=== PATIENT | female | born 1935 | race Caucasian/White ===

== ENCOUNTER 2017-01-21 11:05 | Emergency (ER) | payer OTHER ==
[2017-01-21 11:05] VITALS: BMI 31.0
--- NOTE | 2017-01-21 12:03 | C.PDOC ---
History Of Present Illness A 81 year old female presents to the emergency room with complaints of sore throat, feeling weak, and pain all over the body for the last few months. Patient doesn't take anything for pain. Patient denies chest pain, shortness of breath, fever, or any other complaints. Time Seen by Provider: 01/21/17 11:55 Chief Complaint (Nursing): Dizziness/Lightheaded History Per: Patient History/Exam Limitations: no limitations Onset/Duration Of Symptoms: Other (Few months) Current Symptoms Are (Timing): Still Present Fall Associated With With Symptoms: No Severity: Mild Recent travel outside of the [place]: No Past Medical History Reviewed: Historical Data, Nursing Documentation, Vital Signs Vital Signs: Last Vital Signs Temp 98.6 F 01/21/17 12:05 Pulse 78 01/21/17 15:51 Resp 19 01/21/17 15:51 BP 166/73 H 01/21/17 15:51 Pulse Ox 97 01/21/17 15:51 - Medical History PMH: Anemia, Diabetes, HTN, Hypercholesterolemia, Hyperlipidemia Family History: States: Unknown Family Hx - Social History Hx Tobacco Use: No Hx Alcohol Use: No Hx Substance Use: No Review Of Systems Constitutional: Positive for: Weakness. Negative for: Fever, Chills ENT: Positive for: Throat Pain (Sore throat) Gastrointestinal: Negative for: Nausea, Vomiting, Diarrhea Musculoskeletal: Positive for: Other (Generalized body pain) Physical Exam - Physical Exam Appears: Non-toxic Skin: Normal Color, Warm, Dry, No Rash Head: Atraumatic, Normacephalic Eye(s): bilateral: Normal Inspection Oral Mucosa: Moist Throat: Normal, No Erythema, No Exudate, No Drooling, No Mass Cardiovascular: Rhythm Regular, No Murmur Respiratory: Normal Breath Sounds, No Rales, No Rhonchi, No Wheezing Gastrointestinal/Abdominal: Soft, No Tenderness, No Guarding, No Rebound Extremity: Normal ROM, No Tenderness Neurological/Psych: Oriented x3, Normal Speech, Normal Cognition ED Course And Treatment - Laboratory Results Result Diagrams: 01/21/17 12:11 01/21/17 12:11 ECG: Interpreted By Me, Viewed By Me ECG Rhythm: Sinus Rhythm Rate From EC O2 Sat by Pulse Oximetry: 99 - Radiology CXR: Interpreted by Me CXR Interpretation: Yes: No Acute Disease Medical Decision Making Medical Decision Making: Plan: -- EKG -- CXR -- Labs -- Tylenol Pt stable in the ED labs mild anemia, UA (+) Plan PO abx pcp f/u Disposition - Disposition Disposition: HOME/ ROUTINE Disposition Time: 16:09 Condition: GOOD Prescriptions: Nitrofurantoin Macrocrystals [Macrobid] 1 cap PO BID #14 cap Instructions: Urinary Tract Infection in Women (ED) Print Language: VIETNAMESE - Clinical Impression Clinical Impression: UTI (urinary tract infection), Weakness - Scribe Statement The provider has reviewed the documentation as recorded by the Scribe Ajay Melgar All medical record entries made by the Ronnellibjoao were at my direction and personally dictated by me. I have reviewed the chart and agree that the record accurately reflects my personal performance of the history, physical exam, medical decision making, and the department course for this patient. I have also personally directed, reviewed, and agree with the discharge instructions and disposition.
[2017-01-21 12:33] LABS: BASO % 0.4 % (0.0-2.0); EOS # 0.1 K/uL (0.0-0.7); EOS % 1.6 % (0.0-4.0); HEMATOCRIT 29.9 % (34.0-47.0); LYMPH # 1.1 K/uL (1.0-4.3); MEAN CELL VOLUME 75.2 fL (81.0-99.0); MEAN CORPUSCULAR HEMOGLOBIN 23.9 pg (27.0-31.0); MEAN CORPUSCULAR HGB CONC 31.8 g/dL (33.0-37.0); MEAN PLATELET VOLUME 8.1 fL (7.2-11.7); MONO # 0.9 K/uL (0.0-0.8); MONO % 14.8 % (0.0-10.0); RED CELL DISTRIBUTION WIDTH 18.3 % (11.5-14.5); WHITE BLOOD COUNT 6.1 K/uL (4.8-10.8)
[2017-01-21 12:52] LABS: RBC URINE 4 /hpf (0-3); URINE BACTERIA RARE (<OCC); URINE BILIRUBIN NEGATIVE (NEGATIVE); URINE BLOOD NEGATIVE (NEGATIVE); URINE COLOR Amber (YELLOW); URINE GLUCOSE (UA) 1+ mg/dL (Normal); URINE KETONE NEGATIVE (NEGATIVE); URINE LEUKOCYTE ESTERASE 2+ Leu/uL (Negative); URINE PROTEIN 3+ mg/dL (NEGATIVE); URINE UROBILINOGEN NORMAL mg/dL (0.2-1.0); WBC URINE 63 /hpf (0-5)
[2017-01-21 12:53] LABS: CHLORIDE 102 mmol/L (98-107); SODIUM 137 mmol/L (132-148)
[2017-01-21 12:54] LABS: POTASSIUM 3.9 mmol/L (3.6-5.2)
[2017-01-21 12:56] LABS: ALB/GLOB RATIO 1.1 (1.0-2.1); ALKALINE PHOSPHATASE 118 U/L (38-126); AST/SGOT 29 U/L (14-36); BILIRUBIN,TOTAL 0.7 mg/dL (0.2-1.3); BLOOD UREA NITROGEN 18 mg/dL (7-17); CARBON DIOXIDE 23 mmol/L (22-30); GFR AFRICAN-AMERICAN 52; GLUCOSE,RANDOM 154 mg/dL (65-105); TOTAL PROTEIN 7.8 g/dL (6.3-8.3)
[2017-01-21 12:57] LABS: ALT/SGPT 17 U/L (9-52); CALCIUM 8.2 mg/dl (8.6-10.4)
--- NOTE | 2017-01-21 13:09 | RAD ---
PROCEDURE: CHEST RADIOGRAPH, 1 VIEW HISTORY: chest pain COMPARISON: None available. FINDINGS: LUNGS: Patchy opacity lateral right lung base, nonspecific. Possible atelectasis. PLEURA: No pneumothorax or pleural fluid seen. CARDIOVASCULAR: Normal. OSSEOUS STRUCTURES: No significant abnormalities. VISUALIZED UPPER ABDOMEN: Normal. OTHER FINDINGS: None. IMPRESSION: Patchy opacity lateral right lung base, nonspecific. Otherwise unremarkable examination.
[2017-01-21 14:25] VITALS: TEMP 98.6
[2017-01-21 15:51] VITALS: BP 166/73; PULSE 78; RESP 19
[2017-01-21 16:12] VITALS: O2SAT 99
--- NOTE | 2017-01-24 11:04 | CARD ---
APPROVED REPORT EKG Measurement Heart [id number] <Conclusion> Normal sinus rhythm Left axis deviation Nonspecific ST and T wave abnormality Abnormal ECG
== END 2017-01-21 16:45 | disposition home or self-care (01) ==
LOC: C.ER 11:05
DX: N39.0 Urinary tract infection, site not specified (principal); R53.1 Weakness

== ENCOUNTER 2017-07-17 12:20 | Inpatient (IN) | payer MEDICAID, OTHER ==
[2017-07-17 12:22] VITALS: BMI 31.0
[2017-07-17 13:47] LABS: RBC URINE 3 /hpf (0-3); URINE BACTERIA RARE (<OCC); URINE BILIRUBIN NEGATIVE (NEGATIVE); URINE BLOOD NEGATIVE (NEGATIVE); URINE COLOR Yellow (YELLOW); URINE GLUCOSE (UA) 1+ mg/dL (Normal); URINE HYALINE CAST 0-2 /lpf (0-2); URINE KETONE NEGATIVE (NEGATIVE); URINE LEUKOCYTE ESTERASE 2+ Leu/uL (Negative); URINE PROTEIN 3+ mg/dL (NEGATIVE); URINE UROBILINOGEN NORMAL mg/dL (0.2-1.0); WBC URINE 37 /hpf (0-5)
[2017-07-17 13:58] LABS: BASO % 0.6 % (0.0-2.0); EOS # 0.1 K/uL (0.0-0.7); EOS % 2.3 % (0.0-4.0); HEMATOCRIT 26.3 % (34.0-47.0); LYMPH # 1.9 K/uL (1.0-4.3); MEAN CELL VOLUME 73.9 fL (81.0-99.0); MEAN CORPUSCULAR HEMOGLOBIN 24.5 pg (27.0-31.0); MEAN CORPUSCULAR HGB CONC 33.2 g/dL (33.0-37.0); MEAN PLATELET VOLUME 8.2 fL (7.2-11.7); MONO # 0.7 K/uL (0.0-0.8); MONO % 11.8 % (0.0-10.0); RED CELL DISTRIBUTION WIDTH 16.3 % (11.5-14.5); WHITE BLOOD COUNT 5.8 K/uL (4.8-10.8)
--- NOTE | 2017-07-17 14:03 | RAD ---
PROCEDURE: CHEST RADIOGRAPH, 1 VIEW HISTORY: Shortness of breath COMPARISON: 01/21/2017. FINDINGS: LUNGS: There are low lung volumes. There is moderate pulmonary venous congestion. There is bibasilar atelectasis. PLEURA: No pneumothorax or pleural fluid seen. CARDIOVASCULAR: The heart is normal in size. There is prominent central vasculature. Asymmetric prominence of the right hilum could be related to prominent vasculature however hilar mass/adenopathy is also a differential consideration. OSSEOUS STRUCTURES: No significant abnormalities. VISUALIZED UPPER ABDOMEN: Normal. OTHER FINDINGS: None. IMPRESSION: Moderate pulmonary venous congestion and bibasilar atelectasis. No focal consolidation.
[2017-07-17 14:04] LABS: CHLORIDE 107 mmol/L (98-107)
[2017-07-17 14:05] LABS: SODIUM 137 mmol/L (132-148)
[2017-07-17 14:06] LABS: POTASSIUM 4.3 mmol/L (3.6-5.2)
[2017-07-17 14:08] LABS: ALB/GLOB RATIO 1.2 (1.0-2.1); ALKALINE PHOSPHATASE 106 U/L (38-126); AST/SGOT 20 U/L (14-36); BILIRUBIN,TOTAL 0.5 mg/dL (0.2-1.3); BLOOD UREA NITROGEN 16 mg/dL (7-17); CARBON DIOXIDE 20 mmol/L (22-30); GFR AFRICAN-AMERICAN > 60; TOTAL PROTEIN 6.9 g/dL (6.3-8.3)
[2017-07-17 14:09] LABS: ALT/SGPT 28 U/L (9-52); CALCIUM 7.9 mg/dl (8.6-10.4); GLUCOSE,RANDOM 142 mg/dL (65-105)
--- NOTE | 2017-07-17 14:29 | C.PDOC ---
History Of Present Illness 81 year old female presents to the ED for evaluation of dyspnea on exertion, shortness of breath, and chest pressure. Patient states she has been noncompliant with her medicine since March 2017, when she was last seen in this ED. Patient notes she has poor vision in the morning and notes her lower extremities have been swollen and tender. Patient denies fever, chills, nausea, vomiting, extremity numbness/weakness at this time. Time Seen by Provider: 07/17/17 13:08 Chief Complaint (Nursing): Chest Pain History Per: Patient History/Exam Limitations: no limitations Onset/Duration Of Symptoms: Days Current Symptoms Are (Timing): Still Present Quality: Tightness Associated Symptoms: denies: Nausea Additional History Per: Patient Past Medical History Reviewed: Historical Data, Nursing Documentation, Vital Signs Vital Signs: Last Vital Signs Temp 98.2 F 07/17/17 14:14 Pulse 77 07/17/17 14:53 Resp 16 07/17/17 14:53 BP 192/79 H 07/17/17 14:53 Pulse Ox 97 07/17/17 14:53 - Medical History PMH: Anemia, Diabetes, HTN, Hypercholesterolemia, Hyperlipidemia Surgical History: No Surg Hx Family History: States: Unknown Family Hx - Social History Hx Tobacco Use: No Hx Alcohol Use: No Hx Substance Use: No - Immunization History Hx Tetanus Toxoid Vaccination: No Hx Influenza Vaccination: No Hx Pneumococcal Vaccination: No Review Of Systems Constitutional: Negative for: Fever, Chills Eyes: Positive for: Other (poor vision ) Cardiovascular: Positive for: Other (chest pressure ) Respiratory: Positive for: Shortness of Breath, Other (dyspnea on exertion ) Gastrointestinal: Negative for: Nausea, Vomiting Musculoskeletal: Positive for: Other (lower extremity pain and swelling ) Neurological: Negative for: Weakness, Numbness Physical Exam - Physical Exam Appears: Non-toxic, No Acute Distress Skin: Normal Color, Warm, Dry Head: Atraumatic, Normacephalic Eye(s): bilateral: Other (dense cataracts. unable to visualize retina ) Oral Mucosa: Moist Neck: Other (mild JVD) Chest: Symmetrical, No Deformity, No Tenderness Cardiovascular: Rhythm Regular, Other (loud P2 with holosystolic murmur) Respiratory: Rales (mild ), No Rhonchi, No Wheezing Gastrointestinal/Abdominal: Soft, No Tenderness, No Guarding, No Rebound, Other (obese) Extremity: Normal ROM, Capillary Refill (less than 2 seconds ), Other (1/4 edema to bilateral lower extremities ) Neurological/Psych: Oriented x3, Normal Speech, Normal Cognition ED Course And Treatment - Laboratory Results Result Diagrams: 07/17/17 13:43 07/17/17 13:43 Lab Interpretation: Abnormal (+ anemia, + elev glu, elev bnp 1850, trop neg.) ECG: Interpreted By Me ECG Rhythm: Sinus Rhythm ECG Interpretation: Normal Rate From EC O2 Sat by Pulse Oximetry: 95 (on RA) Pulse Ox Interpretation: Normal - Radiology CXR: Interpreted by Me CXR Interpretation: Yes: Heart Size, Other (+ mild CHF) Progress Note: labetolol 200 mg PO x 2, then lasix 20 IV. supplemental O2 Reevaluation Time: 14:28 Reassessment Condition: Improved - Physician Consult Information Outcome Of Conversation: 1430: d/w Dr. Gardner, Hospitalist covering [facility] pt's, ok to tele obs. Medical Decision Making Medical Decision Making: chronic anemia, mild CHF uncontrolled HTN Off all meds, non-compliant (ran out) Disposition Doctor Will See Patient In The: Hospital Counseled Patient/Family Regarding: Studies Performed, Diagnosis - Disposition Disposition: HOSPITALIZED Disposition Time: 14:29 Condition: GOOD Forms: [facility] (Malay) - Clinical Impression Clinical Impression: Chest discomfort, Dyspnea on exertion - Scribe Statement The provider has reviewed the documentation as recorded by the Scribe (Tammie Butler) Provider Attestation: All medical record entries made by the Scribe were at my direction and personally dictated by me. I have reviewed the chart and agree that the record accurately reflects my personal performance of the history, physical exam, medical decision making, and the department course for this patient. I have also personally directed, reviewed, and agree with the discharge instructions and disposition.
--- NOTE | 2017-07-17 15:49 | CP.PCM.HP ---
<Jaron Gilmore - Last Filed: 07/17/17 16:18> History of Present Illness - History of Present Illness History of Present Illness: Medicine H/P CC: SOB x 3-4 months HPI: Patient is a 81 Female who has been complaining of SOB for the past 3-4 months. She states that she can only walk 6-7 step before becoming SOB. Exertion and laying flat makes it worse. She complains of orthopnea and has to use 2 pillows to sleep. If she lays flat she becomes extremely SOB. Rest makes it better. She is complaining of chest pain that is reproducible on exam. She is complaining of a ESTEVES, leg pain bilaterally and some belly pain. She has very poor vision that hs been worked up on previous visits. She was quite hypertensive in the ED and was given labetalol, lasix and hydralzine which temporarily controlled her pressure. She denies any fever, nausea, vomiting, diarrhea. ROS: Per HPI PMH: HTN, DM PSH: None FH: unremarkable SH: Denies tobacco use, alcohol use or drug use Meds: Zestril, metformin All: NKA Present on Admission - Present on Admission Any Indicators Present on Admission: No Review of Systems - Review of Systems All systems: reviewed and no additional remarkable complaints except (per hpi) Past Patient History - Infectious Disease Hx of Infectious Diseases: None - Past Social History Smoking Status: Never Smoked - CARDIAC Hx Hypercholesterolemia: Yes Hx Hypertension: Yes - ENDOCRINE/METABOLIC Hx Endocrine Disorders: Yes Hx Diabetes Mellitus Type 2: Yes - HEMATOLOGICAL/ONCOLOGICAL Hx Anemia: Yes - PSYCHIATRIC Hx Substance Use: No - SURGICAL HISTORY Hx Surgeries: No - ANESTHESIA Hx Anesthesia: No Meds Allergies/Adverse Reactions: Allergies Allergy/AdvReac Type Severity Reaction Status Date / Time No Known Allergies Allergy Verified 07/17/17 12:52 Physical Exam - Constitutional Appears: Non-toxic - Head Exam Head Exam: ATRAUMATIC, NORMAL INSPECTION, NORMOCEPHALIC - Eye Exam Eye Exam: EOMI, Normal appearance, PERRL. absent: Conjunctival injection, Nystagmus, Periorbital swelling, Periorbital tenderness, Scleral icterus Pupil Exam: Irregular, NORMAL ACCOMODATION, PERRL. absent: Fixed, Miosis, Mydriatic, Unequal - ENT Exam ENT Exam: Mucous Membranes Moist, Normal Exam, Normal External Ear Exam, Normal Oropharynx, TM's Normal Bilaterally. absent: Mucous Membranes Dry - Neck Exam Neck exam: Positive for: Normal Inspection - Respiratory Exam Respiratory Exam: Chest Wall Tenderness, Rales, NORMAL BREATHING PATTERN. absent: Accessory Muscle Use, Decreased Breath Sounds, Clear to Auscultation Bilateral, Prolonged Expiratory Phase, Rhonchi, Wheezes, Respiratory Distress, Stridor - Cardiovascular Exam Cardiovascular Exam: REGULAR RHYTHM, JVD, RRR, +S1, +S2. absent: Bradycardia, Tachycardia, Clicks, Diastolic murmur, Gallop, Irregular Rhythm, Rubs, +S4, Systolic Murmur - GI/Abdominal Exam GI & Abdominal Exam: Normal Bowel Sounds, Soft. absent: Bruit, Diminished Bowel Sounds, Distended, Firm, Guarding, Hernia, Hyperactive Bowel Sounds, Hypoactive Bowel Sounds, Mass, Organomegaly, Pulsatile Mass, Rebound, Rigid, Tenderness - Extremities Exam Extremities exam: Positive for: calf tenderness, full ROM, normal capillary refill, pedal edema (non pitting), tenderness (bilateraly, more on the R than L) . Negative for: joint swelling, normal inspection, pedal pulses present - Neurological Exam Neurological exam: Alert, CN II-XII Intact, Oriented x3 - Psychiatric Exam Psychiatric exam: Normal Affect, Normal Mood - Skin Skin Exam: Dry, Intact, Normal Color, Warm Results - Vital Signs Recent Vital Signs: Last Vital Signs Temp 98.2 F 07/17/17 14:14 Pulse 75 07/17/17 15:25 Resp 16 07/17/17 15:25 BP 171/71 H 07/17/17 15:25 Pulse Ox 99 07/17/17 15:25 - Labs Result Diagrams: 07/17/17 13:43 07/17/17 13:43 Labs: Laboratory Results - last 24 hr 07/17/17 07/17/17 07/17/17 13:24 13:43 13:43 WBC 5.8 RBC 3.57 L Hgb 8.7 L Hct 26.3 L MCV 73.9 L MCH 24.5 L MCHC 33.2 RDW 16.3 H Plt Count 232 MPV 8.2 Neut % (Auto) 52.3 Lymph % (Auto) 33.0 [place] % (Auto) 11.8 H Eos % (Auto) 2.3 Baso % (Auto) 0.6 Neut # 3.0 Lymph # 1.9 [place] # 0.7 Eos # 0.1 Baso # 0.0 Sodium 137 Potassium 4.3 Chloride 107 Carbon Dioxide 20 L Anion Gap 14 BUN 16 Creatinine 1.0 Est GFR ( Amer) > 60 Est GFR (Non-Af Amer) 53 POC Glucose (mg/dL) Random Glucose 142 H Calcium 7.9 L Total Bilirubin 0.5 AST 20 ALT 28 Alkaline Phosphatase 106 Troponin I < 0.0120 NT-Pro-B Natriuret Pep 1850 H Total Protein 6.9 Albumin 3.8 Globulin 3.1 Albumin/Globulin Ratio 1.2 Urine Color Yellow Urine Clarity Clear Urine pH 6.0 Ur Specific [place] 1.018 Urine Protein 3+ H Urine Glucose (UA) 1+ Urine Ketones Negative Urine Blood Negative Urine Nitrate Negative Urine Bilirubin Negative Urine Urobilinogen Normal Ur Leukocyte Esterase 2+ H Urine WBC (Auto) 37 H Urine RBC (Auto) 3 Ur Squamous Epith Cells 5 Urine Bacteria Rare Hyaline Casts 0-2 07/17/17 13:47 WBC RBC Hgb Hct MCV MCH MCHC RDW Plt Count MPV Neut % (Auto) Lymph % (Auto) [place] % (Auto) Eos % (Auto) Baso % (Auto) Neut # Lymph # [place] # Eos # Baso # Sodium Potassium Chloride Carbon Dioxide Anion Gap BUN Creatinine Est GFR ( Amer) Est GFR (Non-Af Amer) POC Glucose (mg/dL) 174 H Random Glucose Calcium Total Bilirubin AST ALT Alkaline Phosphatase Troponin I NT-Pro-B Natriuret Pep Total Protein Albumin Globulin Albumin/Globulin Ratio Urine Color Urine Clarity Urine pH Ur Specific [place] Urine Protein Urine Glucose (UA) Urine Ketones Urine Blood Urine Nitrate Urine Bilirubin Urine Urobilinogen Ur Leukocyte Esterase Urine WBC (Auto) Urine RBC (Auto) Ur Squamous Epith Cells Urine Bacteria Hyaline Casts Assessment & Plan (1) Dyspnea on exertion Assessment and Plan: BNP 1850 - Consider CHF Cards ([facility]) Echo CXR - Moderate pulm venous congestion EUGENIA x3 * 1 - negative * 2 * 3 Lipid panel * TG * Chol * HDL * LDL Meds: * Lasix 20 PO BID * Metoprolol Tartrate 25 PO BID * Crestor 10 PO HS * Aldactone 25 PO BID * Lisinopril 40 PO QD Status: Acute Priority: High (2) Leg pain Assessment and Plan: F/U Venous doppler Status: Acute Priority: Medium (3) Hypertension Assessment and Plan: Meds: * Lisinopril 40mg PO QD * Lasix 20 PO BID * Metoprolol Tartrate 25 PO BID Status: Acute Priority: High (4) Diabetes Assessment and Plan: F/U A1C ISS High Accuchecks Status: Chronic Priority: Medium (5) UTI (urinary tract infection) Assessment and Plan: First UA contaminated F/U Repeat UA Status: Acute (6) Prophylactic measure Assessment and Plan: Heparin Colace Ambulate Zofran Status: Acute Priority: Low <Claudio Gardner H - Last Filed: 07/18/17 09:20> Results - Vital Signs Recent Vital Signs: Last Vital Signs Temp 98.3 F 07/18/17 08:11 Pulse 86 07/18/17 08:11 Resp 20 07/18/17 08:11 BP 183/78 H 07/18/17 08:11 Pulse Ox 97 07/18/17 08:11 - Labs Result Diagrams: 07/18/17 06:12 07/18/17 06:12 Labs: Laboratory Results - last 24 hr 07/17/17 07/17/17 07/17/17 13:24 13:43 13:43 WBC 5.8 RBC 3.57 L Hgb 8.7 L Hct 26.3 L MCV 73.9 L MCH 24.5 L MCHC 33.2 RDW 16.3 H Plt Count 232 MPV 8.2 Neut % (Auto) 52.3 Lymph % (Auto) 33.0 [place] % (Auto) 11.8 H Eos % (Auto) 2.3 Baso % (Auto) 0.6 Neut # 3.0 Lymph # 1.9 [place] # 0.7 Eos # 0.1 Baso # 0.0 Sodium 137 Potassium 4.3 Chloride 107 Carbon Dioxide 20 L Anion Gap 14 BUN 16 Creatinine 1.0 Est GFR ( Amer) > 60 Est GFR (Non-Af Amer) 53 POC Glucose (mg/dL) Random Glucose 142 H Hemoglobin A1c Calcium 7.9 L Total Bilirubin 0.5 AST 20 ALT 28 Alkaline Phosphatase 106 Total Creatine Kinase CK-MB (Mass) Troponin I < 0.0120 Troponin I, Quant NT-Pro-B Natriuret Pep 1850 H Total Protein 6.9 Albumin 3.8 Globulin 3.1 Albumin/Globulin Ratio 1.2 Triglycerides Cholesterol LDL Cholesterol Direct HDL Cholesterol TSH 3rd Generation Urine Color Yellow Urine Clarity Clear Urine pH 6.0 Ur Specific [place] 1.018 Urine Protein 3+ H Urine Glucose (UA) 1+ Urine Ketones Negative Urine Blood Negative Urine Nitrate Negative Urine Bilirubin Negative Urine Urobilinogen Normal Ur Leukocyte Esterase 2+ H Urine WBC (Auto) 37 H Urine RBC (Auto) 3 Ur Squamous Epith Cells 5 Urine Bacteria Rare Hyaline Casts 0-2 07/17/17 07/17/17 07/17/17 13:43 13:47 16:27 WBC RBC Hgb Hct MCV MCH MCHC RDW Plt Count MPV Neut % (Auto) Lymph % (Auto) [place] % (Auto) Eos % (Auto) Baso % (Auto) Neut # Lymph # [place] # Eos # Baso # Sodium Potassium Chloride Carbon Dioxide Anion Gap BUN Creatinine Est GFR ( Amer) Est GFR (Non-Af Amer) POC Glucose (mg/dL) 174 H 131 H Random Glucose Hemoglobin A1c 7.4 H Calcium Total Bilirubin AST ALT Alkaline Phosphatase Total Creatine Kinase CK-MB (Mass) Troponin I Troponin I, Quant NT-Pro-B Natriuret Pep Total Protein Albumin Globulin Albumin/Globulin Ratio Triglycerides Cholesterol LDL Cholesterol Direct HDL Cholesterol TSH 3rd Generation Urine Color Urine Clarity Urine pH Ur Specific [place] Urine Protein Urine Glucose (UA) Urine Ketones Urine Blood Urine Nitrate Urine Bilirubin Urine Urobilinogen Ur Leukocyte Esterase Urine WBC (Auto) Urine RBC (Auto) Ur Squamous Epith Cells Urine Bacteria Hyaline Casts 07/17/17 07/17/17 07/18/17 19:36 21:59 02:00 WBC RBC Hgb Hct MCV MCH MCHC RDW Plt Count MPV Neut % (Auto) Lymph % (Auto) [place] % (Auto) Eos % (Auto) Baso % (Auto) Neut # Lymph # [place] # Eos # Baso # Sodium Potassium Chloride Carbon Dioxide Anion Gap BUN Creatinine Est GFR ( Amer) Est GFR (Non-Af Amer) POC Glucose (mg/dL) 253 H Random Glucose Hemoglobin A1c Calcium Total Bilirubin AST ALT Alkaline Phosphatase Total Creatine Kinase 57 53 CK-MB (Mass) 0.85 0.53 Troponin I Troponin I, Quant < 0.0120 0.0400 NT-Pro-B Natriuret Pep Total Protein Albumin Globulin Albumin/Globulin Ratio Triglycerides Cholesterol LDL Cholesterol Direct HDL Cholesterol TSH 3rd Generation Urine Color Urine Clarity Urine pH Ur Specific [place] Urine Protein Urine Glucose (UA) Urine Ketones Urine Blood Urine Nitrate Urine Bilirubin Urine Urobilinogen Ur Leukocyte Esterase Urine WBC (Auto) Urine RBC (Auto) Ur Squamous Epith Cells Urine Bacteria Hyaline Casts 07/18/17 07/18/17 07/18/17 06:12 06:12 06:52 WBC 5.9 RBC 3.10 L Hgb 7.3 L Hct 22.9 L MCV 73.9 L MCH 23.4 L MCHC 31.7 L RDW 16.8 H Plt Count 167 MPV 8.3 Neut % (Auto) 53.6 Lymph % (Auto) 31.4 [place] % (Auto) 12.9 H Eos % (Auto) 1.6 Baso % (Auto) 0.5 Neut # 3.2 Lymph # 1.9 [place] # 0.8 Eos # 0.1 Baso # 0.0 Sodium 138 Potassium 4.4 Chloride 107 Carbon Dioxide 22 Anion Gap 13 BUN 22 H Creatinine 1.5 H Est GFR ( Amer) 41 Est GFR (Non-Af Amer) 33 POC Glucose (mg/dL) 129 H Random Glucose 124 H Hemoglobin A1c Calcium 7.5 L Total Bilirubin 0.2 AST 19 ALT 24 Alkaline Phosphatase 80 Total Creatine Kinase CK-MB (Mass) Troponin I Troponin I, Quant NT-Pro-B Natriuret Pep Total Protein 6.6 Albumin 3.1 L Globulin 3.5 Albumin/Globulin Ratio 0.9 L Triglycerides 127 D Cholesterol 157 LDL Cholesterol Direct 97 HDL Cholesterol 48 TSH 3rd Generation 1.34 Urine Color Urine Clarity Urine pH Ur Specific [place] Urine Protein Urine Glucose (UA) Urine Ketones Urine Blood Urine Nitrate Urine Bilirubin Urine Urobilinogen Ur Leukocyte Esterase Urine WBC (Auto) Urine RBC (Auto) Ur Squamous Epith Cells Urine Bacteria Hyaline Casts Attending/Attestation - Attestation I have personally seen and examined this patient.: Yes I have fully participated in the care of the patient.: Yes I have reviewed all pertinent clinical information: Yes Notes (Text): Medical attending: Patient was seen and examined by me. Agree with the above note by the resident The patient was not in any acute distress when we saw her however she did communicate to us that she still felt short of breath - particularly when laying flat on her back at night. She reports using multiple pillows. In the ER she had remarkably high BP and was given lasix IV and labetalol PO. There is a high BNP as well as CXRAY findings suggestiving CHF. We will need an echo, additional cardiac enzymes as well as to follow I and Os, weights.
[2017-07-17] MEDS: (Novolin R) Insulin Human Regular 100 units/ml vial SC SCH ×2 (16:54→22:32)
[2017-07-17] MEDS ORDERED: Metoprolol 1 mg/ml Inj IVP SCH (18:00)
[2017-07-18 06:21] LABS: BASO % 0.5 % (0.0-2.0); EOS # 0.1 K/uL (0.0-0.7); EOS % 1.6 % (0.0-4.0); HEMATOCRIT 22.9 % (34.0-47.0); LYMPH # 1.9 K/uL (1.0-4.3); LYMPH % 31.4 % (20.0-40.0); MEAN CELL VOLUME 73.9 fL (81.0-99.0); MEAN CORPUSCULAR HEMOGLOBIN 23.4 pg (27.0-31.0); MEAN CORPUSCULAR HGB CONC 31.7 g/dL (33.0-37.0); MEAN PLATELET VOLUME 8.3 fL (7.2-11.7); MONO # 0.8 K/uL (0.0-0.8); MONO % 12.9 % (0.0-10.0); RED CELL DISTRIBUTION WIDTH 16.8 % (11.5-14.5); WHITE BLOOD COUNT 5.9 K/uL (4.8-10.8)
[2017-07-18 06:46] LABS: ALB/GLOB RATIO 0.9 (1.0-2.1); BILIRUBIN,TOTAL 0.2 mg/dL (0.2-1.3); CALCIUM 7.5 mg/dl (8.6-10.4); POTASSIUM 4.4 mmol/L (3.6-5.2); TOTAL PROTEIN 6.6 g/dL (6.3-8.3)
[2017-07-18 07:07] LABS: THYROID STIMULATING HORMONE 1.34 mIU/L (0.46-4.68)
[2017-07-18] MEDS: (Novolin R) Insulin Human Regular 100 units/ml vial SC SCH ×4 (08:15→22:33)
[2017-07-18 13:08] LABS: RBC URINE < 1 /hpf (0-3); URINE BILIRUBIN NEGATIVE (NEGATIVE); URINE BLOOD NEGATIVE (NEGATIVE); URINE COLOR Yellow (YELLOW); URINE GLUCOSE (UA) 1+ mg/dL (Normal); URINE KETONE TRACE mg/dL (NEGATIVE); URINE LEUKOCYTE ESTERASE TRACE Leu/uL (Negative); URINE PROTEIN 3+ mg/dL (NEGATIVE); URINE UROBILINOGEN NORMAL mg/dL (0.2-1.0); WBC URINE 6 /hpf (0-5)
--- NOTE | 2017-07-18 17:09 | CP.PCM.PN ---
<Milo Matthews - Last Filed: 07/18/17 17:07> Subjective - Date & Time of Evaluation Date of Evaluation: 07/18/17 Time of Evaluation: 17:07 - Subjective Subjective: Patient has been seen and examined. Denies fever, abdominal pain, n/v/d constipation, or urinary symptoms. She states her chest pain and SOB have improved. Objective - Vital Signs/Intake and Output Vital Signs (last 24 hours): Temp Pulse Resp BP Pulse Ox 98.3 F 76 20 166/77 H 97 07/18/17 08:11 07/18/17 14:56 07/18/17 08:11 07/18/17 14:56 07/18/17 08:11 Intake and Output: 07/18/17 07/18/17 06:59 18:59 Intake Total 240 Balance 240 - Medications Medications: Current Medications Acetaminophen (Tylenol 325mg Tab) 650 mg PO Q6 PRN PRN Reason: Pain, moderate (4-7) Docusate Sodium (Colace) 100 mg PO BID [facility] Last Admin: 07/18/17 09:24 Dose: 100 mg Ferrous Sulfate (Feosol) 325 mg PO TID [facility] Last Admin: 07/18/17 14:56 Dose: 325 mg Furosemide (Lasix) 40 mg IVP BID [facility] Last Admin: 07/18/17 11:58 Dose: Not Given Heparin Sodium (Porcine) (Heparin) 5,000 units SC Q12 [facility] Last Admin: 07/18/17 10:54 Dose: 5,000 units Hydralazine HCl (Apresoline) 25 mg PO QID [facility] Last Admin: 07/18/17 14:56 Dose: 25 mg Ibuprofen (Motrin Tab) 400 mg PO Q6 PRN PRN Reason: Fever >100.4 F Insulin Human Regular (Novolin R) 0 unit SC ACHS [facility] PRN Reason: Protocol Last Admin: 07/18/17 12:42 Dose: 4 unit Lisinopril (Zestril) 40 mg PO DAILY [facility] Last Admin: 07/18/17 09:24 Dose: 40 mg Metoprolol Tartrate (Lopressor) 25 mg PO BID [facility] Last Admin: 07/18/17 09:24 Dose: 25 mg Ondansetron HCl (Zofran Inj) 4 mg IVP Q6 PRN PRN Reason: Nausea/Vomiting Pneumococcal Polyvalent Vaccine (Pneumovax 23 Vaccine) 0.5 ml IM .ONCE ONE Stop: 07/20/17 10:01 Rosuvastatin Calcium (Crestor) 10 mg PO HS [facility] Last Admin: 07/17/17 22:31 Dose: 10 mg Spironolactone (Aldactone) 25 mg PO BID [facility] Last Admin: 07/18/17 09:24 Dose: 25 mg - Labs Labs: 07/18/17 06:12 07/18/17 06:12 - Constitutional Appears: No Acute Distress - Head Exam Head Exam: ATRAUMATIC, NORMAL INSPECTION, NORMOCEPHALIC - Eye Exam Eye Exam: Normal appearance - ENT Exam ENT Exam: Mucous Membranes Moist - Respiratory Exam Respiratory Exam: Clear to Ausculation Bilateral, NORMAL BREATHING PATTERN - Cardiovascular Exam Cardiovascular Exam: JVD, RRR, +S1, +S2 - GI/Abdominal Exam GI & Abdominal Exam: Soft, Normal Bowel Sounds. absent: Tenderness, Organomegaly - Extremities Exam Extremities Exam: Pedal Edema (non-pitting), Tenderness - Neurological Exam Neurological Exam: Alert, Oriented x3 Assessment and Plan - Assessment and Plan (Free Text) Assessment: 81 year old female with PMHx of HTN and DM admitted for evaluation and treatment and SOB. Plan: Dyspnea on exertion Likely 2/2 to new onset CHF Cardio Consult - recs appreciated Echo - Pending Read CXR - Moderate pulm venous congestion EUGENIA NEGATIVE x3 Lipid panel -WNL Meds: * Lasix 40 IV BID * Metoprolol Tartrate 25 PO BID * Crestor 10 PO HS * Aldactone 25 PO BID * Lisinopril 40 PO QD Microcytic Anemia Ferous Sulfate 325 BID Leg pain F/U Venous doppler - Pending Read Hypertension Meds: * Lisinopril 40mg PO QD * Lasix 20 PO BID * Metoprolol Tartrate 25 PO BID Diabetes HgBA1c = 7.4 ISS High Accuchecks UTI (urinary tract infection) First UA contaminated Repeat UA shows trace Leuk Es. Urine Culture Prophylactic measure Heparin Colace Ambulate Zofran Patient Discussed with Attending Milo Matthews PGY-1 <Ventura Mittal - Last Filed: 08/09/17 15:36> Objective - Vital Signs/Intake and Output Vital Signs (last 24 hours): Temp Pulse Resp BP Pulse Ox 99.2 F 85 20 134/52 L 96 08/06/17 09:31 08/06/17 09:31 08/06/17 09:31 08/06/17 09:33 08/06/17 09:31 - Labs Labs: 08/06/17 06:11 08/06/17 06:11 PT 11.6 SECONDS (9.7-12.2) 07/20/17 18:03 INR 1.0 07/20/17 18:03 APTT 40 SECONDS (21-34) H D 07/21/17 01:27 Attending/Attestation - Attestation I have personally seen and examined this patient.: Yes I have fully participated in the care of the patient.: Yes I have reviewed all pertinent clinical information, including history, physical exam and plan: Yes Notes (Text): Dyspnea on exertion Likely 2/2 to new onset CHF Microcytic Anemia Ferous Sulfate 325 BID Leg pain F/U Venous doppler - Pending Read Hypertension
--- NOTE | 2017-07-18 21:04 | CARD ---
APPROVED REPORT EXAM: Two-dimensional and M-mode echocardiogram with Doppler and color Doppler. Other Information Quality : GoodRhythm : INDICATION Dyspnea Congestive Heart Failure RISK FACTORS Hypertension Diabetes 2D DIMENSIONS IVSd1.2 (0.7-1.1cm)LVDd4.7 (3.9-5.9cm) LVOT Diameter2.0 (1.8-2.4cm)PWd1.1 (0.7-1.1cm) LVDs2.7 (2.5-4.0cm)FS (%) 42.8 % LVEF (%)68.0 (>50%) M-Mode DIMENSIONS Left Atrium (MM)4.65 (2.5-4.0cm)Aortic Root2.87 (2.2-3.7cm) Aortic Cusp Exc.1.53 (1.5-2.0cm) Aortic Valve AoV Peak Qwduujpv661.1cm/sAoV VTI48.2cmAO Peak GR.22mmHg LVOT Peak Erbvguru634.5cm/sLVOT VTI28.38cmAO Mean GR.13mmHg KUNAL (VMAX)1.89il7XUF (VTI)1.83cm2 Mitral Valve MV E Czychclx801.5cm/sMV A Dwctpnqn698.9cm/sE/A ratio1.2 TDI E/Lateral E'0.0E/Medial E'0.0 Tricuspid Valve TR Peak Iwvaskzy261kn/sTR Peak Gr.95ucXkNBHL69cnYb LEFT VENTRICLE The left ventricle is normal size. There is borderline to mild concentric left ventricular hypertrophy. The left ventricular function is normal. The left ventricular ejection fraction is within the normal range.55%. No regional wall motion abnormalities noted. Transmitral Doppler flow pattern is Grade II-pseudonormal filling dynamics. No left ventricle thrombus noted on this study. There is no ventricular septal defect visualized. There is no left ventricular aneurysm. There is no mass noted in the left ventricle. RIGHT VENTRICLE The right ventricle is normal size. There is normal right ventricular wall thickness. The right ventricular systolic function is normal. ATRIA The left atrium size is normal. The right atrium size is normal. The interatrial septum is intact with no evidence for an atrial septal defect. AORTIC VALVE The aortic valve is mildly thickened, with mildly reduced opening. Peal/mean gradietns are 20 /10 mm Hg and estimated valve area is 1.5 cm2. No aortic regurgitation is present. There is mild valvular aortic stenosis. There is no aortic valvular vegetation. MITRAL VALVE The mitral valve is normal in structure and function. There is no evidence of mitral valve prolapse. There is no mitral valve stenosis. There is mild mitral valve regurgitation noted. TRICUSPID VALVE The tricuspid valve is normal in structure and function. There is mild tricuspid valve regurgitation noted. Estimate PA systolic pressure is 45 mm Hg There is no tricuspid valve prolapse or vegetation. There is no tricuspid valve stenosis. PULMONIC VALVE The pulmonary valve is normal in structure and function. There is no pulmonic valvular regurgitation. There is no pulmonic valvular stenosis. GREAT VESSELS The aortic root is normal in size. The ascending aorta is normal in size. The pulmonary artery is normal. The IVC is normal in size and collapses >50% with inspiration. PERICARDIAL EFFUSION The pericardium appears normal. There is no pleural effusion. <Conclusion> Normal LV systolic function. Type II diastolic dysfunction, elevated LA pressure. There is mild tricuspid valve regurgitation noted. Estimate PA systolic pressure is 45 mm Hg Mild aortic stenosis.
--- NOTE | 2017-07-18 21:38 | CARD ---
APPROVED REPORT EKG Measurement Heart [id number] <Conclusion> Normal sinus rhythm Left axis deviation Minimal voltage criteria for LVH, may be normal variant Cannot rule out Anterior infarct, age undetermined Abnormal ECG
--- NOTE | 2017-07-18 22:48 | CP.PCM.CON ---
History of Present Illness - History of Present Illness History of Present Illness: Reason for consult : progressive sob HPI : Patient is a 81 Female who has been complaining of SOB for the past 3-4 months. She states that she can only walk 6-7 step before becoming SOB. Exertion and laying flat makes it worse. She complains of orthopnea and has to use 2 pillows to sleep. If she lays flat she becomes extremely SOB. Rest makes it better. She is complaining of chest pain that is reproducible on exam. She is complaining of a ESTEVES, leg pain bilaterally and some belly pain. She has very poor vision that hs been worked up on previous visits. She was quite hypertensive in the ED and was given labetalol, lasix and hydralzine which temporarily controlled her pressure. She denies any fever, nausea, vomiting, diarrhe pro - bnp 1850 renal trops 0.04 Past Patient History - Infectious Disease Hx of Infectious Diseases: None - Past Medical History & Family History Past Medical History?: Yes - Past Social History Smoking Status: Never Smoked - CARDIAC Hx Cardiac Disorders: Yes Hx Hypercholesterolemia: Yes Hx Hypertension: Yes - PULMONARY Hx Respiratory Disorders: No - NEUROLOGICAL Hx Neurological Disorder: No - HEENT Hx HEENT Problems: No - RENAL Hx Chronic Kidney Disease: No - ENDOCRINE/METABOLIC Hx Endocrine Disorders: Yes Hx Diabetes Mellitus Type 2: Yes - HEMATOLOGICAL/ONCOLOGICAL Hx Blood Disorders: Yes Hx Anemia: Yes - INTEGUMENTARY Hx Dermatological Problems: No - MUSCULOSKELETAL/RHEUMATOLOGICAL Hx Musculoskeletal Disorders: No Hx Falls: No - GASTROINTESTINAL Hx Gastrointestinal Disorders: No - GENITOURINARY/GYNECOLOGICAL Hx Genitourinary Disorders: No - PSYCHIATRIC Hx Psychophysiologic Disorder: No Hx Substance Use: No - SURGICAL HISTORY Hx Surgeries: No - ANESTHESIA Hx Anesthesia: No Meds Allergies/Adverse Reactions: Allergies Allergy/AdvReac Type Severity Reaction Status Date / Time No Known Allergies Allergy Verified 07/17/17 12:52 - Medications Medications: Current Medications Acetaminophen (Tylenol 325mg Tab) 650 mg PO Q6 PRN PRN Reason: Pain, moderate (4-7) Docusate Sodium (Colace) 100 mg PO BID [facility] Last Admin: 07/18/17 18:22 Dose: 100 mg Ferrous Sulfate (Feosol) 325 mg PO TID [facility] Last Admin: 07/18/17 18:23 Dose: 325 mg Furosemide (Lasix) 40 mg IVP BID [facility] Last Admin: 07/18/17 18:23 Dose: 40 mg Heparin Sodium (Porcine) (Heparin) 5,000 units SC Q12 [facility] Last Admin: 07/18/17 22:33 Dose: 5,000 units Hydralazine HCl (Apresoline) 25 mg PO QID [facility] Last Admin: 07/18/17 22:32 Dose: 25 mg Ibuprofen (Motrin Tab) 400 mg PO Q6 PRN PRN Reason: Fever >100.4 F Insulin Human Regular (Novolin R) 0 unit SC ACHS [facility] PRN Reason: Protocol Last Admin: 07/18/17 22:33 Dose: Not Given Lisinopril (Zestril) 40 mg PO DAILY [facility] Last Admin: 07/18/17 09:24 Dose: 40 mg Metoprolol Tartrate (Lopressor) 25 mg PO BID [facility] Last Admin: 07/18/17 18:23 Dose: 25 mg Ondansetron HCl (Zofran Inj) 4 mg IVP Q6 PRN PRN Reason: Nausea/Vomiting Pneumococcal Polyvalent Vaccine (Pneumovax 23 Vaccine) 0.5 ml IM .ONCE ONE Stop: 07/20/17 10:01 Rosuvastatin Calcium (Crestor) 10 mg PO HS [facility] Last Admin: 07/18/17 22:32 Dose: 10 mg Spironolactone (Aldactone) 25 mg PO BID [facility] Last Admin: 07/18/17 18:22 Dose: 25 mg Physical Exam - Head Exam Head Exam: NORMAL INSPECTION - Eye Exam Eye Exam: absent: Scleral icterus - ENT Exam ENT Exam: Mucous Membranes Moist - Neck Exam Neck exam: Positive for: Full Rom - Respiratory Exam Respiratory Exam: Decreased Breath Sounds - Cardiovascular Exam Cardiovascular Exam: REGULAR RHYTHM - Extremities Exam Extremities exam: Positive for: pedal edema. Negative for: calf tenderness - Neurological Exam Neurological exam: Alert Results - Vital Signs Recent Vital Signs: Last Vital Signs Temp 98.0 F 07/18/17 15:07 Pulse 74 07/18/17 15:07 Resp 20 07/18/17 15:07 BP 183/73 H 07/18/17 18:23 Pulse Ox 100 07/18/17 15:07 - Labs Result Diagrams: 07/18/17 06:12 07/18/17 06:12 Labs: Laboratory Results - last 24 hr 07/17/17 07/18/17 07/18/17 13:43 02:00 06:12 WBC 5.9 RBC 3.10 L Hgb 7.3 L Hct 22.9 L MCV 73.9 L MCH 23.4 L MCHC 31.7 L RDW 16.8 H Plt Count 167 MPV 8.3 Neut % (Auto) 53.6 Lymph % (Auto) 31.4 [place] % (Auto) 12.9 H Eos % (Auto) 1.6 Baso % (Auto) 0.5 Neut # 3.2 Lymph # 1.9 [place] # 0.8 Eos # 0.1 Baso # 0.0 Sodium Potassium Chloride Carbon Dioxide Anion Gap BUN Creatinine Est GFR ( Amer) Est GFR (Non-Af Amer) POC Glucose (mg/dL) Random Glucose Hemoglobin A1c 7.4 H Calcium Total Bilirubin AST ALT Alkaline Phosphatase Total Creatine Kinase 53 CK-MB (Mass) 0.53 Troponin I, Quant 0.0400 Total Protein Albumin Globulin Albumin/Globulin Ratio Triglycerides Cholesterol LDL Cholesterol Direct HDL Cholesterol TSH 3rd Generation Urine Color Urine Clarity Urine pH Ur Specific [place] Urine Protein Urine Glucose (UA) Urine Ketones Urine Blood Urine Nitrate Urine Bilirubin Urine Urobilinogen Ur Leukocyte Esterase Urine WBC (Auto) Urine RBC (Auto) Ur Squamous Epith Cells Influenza Typ A,B (EIA) Blood Type Antibody Screen 07/18/17 07/18/17 07/18/17 06:12 06:52 12:18 WBC RBC Hgb Hct MCV MCH MCHC RDW Plt Count MPV Neut % (Auto) Lymph % (Auto) [place] % (Auto) Eos % (Auto) Baso % (Auto) Neut # Lymph # [place] # Eos # Baso # Sodium 138 Potassium 4.4 Chloride 107 Carbon Dioxide 22 Anion Gap 13 BUN 22 H Creatinine 1.5 H Est GFR ( Amer) 41 Est GFR (Non-Af Amer) 33 POC Glucose (mg/dL) 129 H 235 H Random Glucose 124 H Hemoglobin A1c Calcium 7.5 L Total Bilirubin 0.2 AST 19 ALT 24 Alkaline Phosphatase 80 Total Creatine Kinase CK-MB (Mass) Troponin I, Quant Total Protein 6.6 Albumin 3.1 L Globulin 3.5 Albumin/Globulin Ratio 0.9 L Triglycerides 127 D Cholesterol 157 LDL Cholesterol Direct 97 HDL Cholesterol 48 TSH 3rd Generation 1.34 Urine Color Urine Clarity Urine pH Ur Specific [place] Urine Protein Urine Glucose (UA) Urine Ketones Urine Blood Urine Nitrate Urine Bilirubin Urine Urobilinogen Ur Leukocyte Esterase Urine WBC (Auto) Urine RBC (Auto) Ur Squamous Epith Cells Influenza Typ A,B (EIA) Blood Type Antibody Screen 07/18/17 07/18/17 07/18/17 12:32 16:49 17:09 WBC RBC Hgb Hct MCV MCH MCHC RDW Plt Count MPV Neut % (Auto) Lymph % (Auto) [place] % (Auto) Eos % (Auto) Baso % (Auto) Neut # Lymph # [place] # Eos # Baso # Sodium Potassium Chloride Carbon Dioxide Anion Gap BUN Creatinine Est GFR ( Amer) Est GFR (Non-Af Amer) POC Glucose (mg/dL) 145 H Random Glucose Hemoglobin A1c Calcium Total Bilirubin AST ALT Alkaline Phosphatase Total Creatine Kinase CK-MB (Mass) Troponin I, Quant Total Protein Albumin Globulin Albumin/Globulin Ratio Triglycerides Cholesterol LDL Cholesterol Direct HDL Cholesterol TSH 3rd Generation Urine Color Yellow Urine Clarity Clear Urine pH 5.0 Ur Specific [place] 1.017 Urine Protein 3+ H Urine Glucose (UA) 1+ Urine Ketones Trace Urine Blood Negative Urine Nitrate Negative Urine Bilirubin Negative Urine Urobilinogen Normal Ur Leukocyte Esterase Trace Urine WBC (Auto) 6 H Urine RBC (Auto) < 1 Ur Squamous Epith Cells < 1 Influenza Typ A,B (EIA) Blood Type B POSITIVE Antibody Screen Negative 07/18/17 07/18/17 21:25 21:52 WBC RBC Hgb Hct MCV MCH MCHC RDW Plt Count MPV Neut % (Auto) Lymph % (Auto) [place] % (Auto) Eos % (Auto) Baso % (Auto) Neut # Lymph # [place] # Eos # Baso # Sodium Potassium Chloride Carbon Dioxide Anion Gap BUN Creatinine Est GFR ( Amer) Est GFR (Non-Af Amer) POC Glucose (mg/dL) 184 H Random Glucose Hemoglobin A1c Calcium Total Bilirubin AST ALT Alkaline Phosphatase Total Creatine Kinase CK-MB (Mass) Troponin I, Quant Total Protein Albumin Globulin Albumin/Globulin Ratio Triglycerides Cholesterol LDL Cholesterol Direct HDL Cholesterol TSH 3rd Generation Urine Color Urine Clarity Urine pH Ur Specific [place] Urine Protein Urine Glucose (UA) Urine Ketones Urine Blood Urine Nitrate Urine Bilirubin Urine Urobilinogen Ur Leukocyte Esterase Urine WBC (Auto) Urine RBC (Auto) Ur Squamous Epith Cells Influenza Typ A,B (EIA) Negative for flu a/b Blood Type Antibody Screen Assessment & Plan - Assessment and Plan (Free Text) Assessment: CHF - diastolic, Acute on chronic Anemia Renal insufficiency Plan: Agree w/ meds ECHO
[2017-07-19 07:42] LABS: BASO % 0.5 % (0.0-2.0); EOS # 0.1 K/uL (0.0-0.7); EOS % 2.2 % (0.0-4.0); HEMATOCRIT 23.6 % (34.0-47.0); LYMPH # 1.4 K/uL (1.0-4.3); LYMPH % 30.9 % (20.0-40.0); MEAN CELL VOLUME 74.4 fL (81.0-99.0); MEAN CORPUSCULAR HEMOGLOBIN 23.8 pg (27.0-31.0); MEAN PLATELET VOLUME 8.7 fL (7.2-11.7); MONO # 0.6 K/uL (0.0-0.8); MONO % 13.8 % (0.0-10.0); NRBC % 0.2 % (0.0-2.0); RED CELL DISTRIBUTION WIDTH 16.6 % (11.5-14.5); WHITE BLOOD COUNT 4.4 K/uL (4.8-10.8)
[2017-07-19 07:49] LABS: POTASSIUM 4.1 mmol/L (3.6-5.2)
[2017-07-19 07:51] LABS: ALB/GLOB RATIO 1.2 (1.0-2.1); BILIRUBIN,TOTAL 0.4 mg/dL (0.2-1.3); TOTAL PROTEIN 5.9 g/dL (6.3-8.3)
[2017-07-19 07:52] LABS: CALCIUM 7.6 mg/dl (8.6-10.4)
[2017-07-19] MEDS: (Novolin R) Insulin Human Regular 100 units/ml vial SC SCH ×4 (08:29→21:40)
--- NOTE | 2017-07-19 10:24 | CP.PCM.PN ---
<Milo Matthews - Last Filed: 07/19/17 16:14> Subjective - Date & Time of Evaluation Date of Evaluation: 07/19/17 Time of Evaluation: 10:22 - Subjective Subjective: Patient has been seen and examined. No overnight events reported. Patient denies any fevers or chills. She states that her SOB and reproducible Chest pain have improved. She does complain of lower abdominal tenderness. Patient stated today that she had an IUD placed about 40 years ago which was never removed. She feels that is contributing to her abdominal. Denies any urinary symptoms. She does complain of changes in vision which has been chronic for over a year per the patient. Objective - Vital Signs/Intake and Output Vital Signs (last 24 hours): Temp Pulse Resp BP Pulse Ox 98.3 F 76 20 188/68 H 95 07/19/17 07:20 07/19/17 09:21 07/19/17 07:20 07/19/17 09:23 07/19/17 07:20 - Medications Medications: Current Medications Acetaminophen (Tylenol 325mg Tab) 650 mg PO Q6 PRN PRN Reason: Pain, moderate (4-7) Docusate Sodium (Colace) 100 mg PO BID [facility] [place] Last Admin: 07/19/17 09:24 Dose: 100 mg Ferrous Sulfate (Feosol) 325 mg PO TID [facility] [place] Last Admin: 07/19/17 09:24 Dose: 325 mg Furosemide (Lasix) 40 mg IVP BID [facility] Last Admin: 07/19/17 09:22 Dose: 40 mg Heparin Sodium (Porcine) (Heparin) 5,000 units SC Q12 [facility] Last Admin: 07/19/17 09:26 Dose: 5,000 units Hydralazine HCl (Apresoline) 25 mg PO QID [facility] Last Admin: 07/19/17 09:24 Dose: 25 mg Ibuprofen (Motrin Tab) 400 mg PO Q6 PRN PRN Reason: Fever >100.4 F Insulin Human Regular (Novolin R) 0 unit SC ACHS [facility] [place] PRN Reason: Protocol Last Admin: 07/19/17 08:29 Dose: 2 unit Lisinopril (Zestril) 40 mg PO DAILY [facility] Last Admin: 07/19/17 09:24 Dose: 40 mg Metoprolol Tartrate (Lopressor) 25 mg PO BID [facility] [place] Last Admin: 07/19/17 09:23 Dose: 25 mg Ondansetron HCl (Zofran Inj) 4 mg IVP Q6 PRN PRN Reason: Nausea/Vomiting Pneumococcal Polyvalent Vaccine (Pneumovax 23 Vaccine) 0.5 ml IM .ONCE ONE Stop: 07/20/17 10:01 Rosuvastatin Calcium (Crestor) 10 mg PO HS [facility] Last Admin: 07/18/17 22:32 Dose: 10 mg Spironolactone (Aldactone) 25 mg PO BID [facility] [place] Last Admin: 07/19/17 09:23 Dose: 25 mg - Labs Labs: 07/19/17 07:18 07/19/17 07:18 - Head Exam Head Exam: ATRAUMATIC, NORMAL INSPECTION, NORMOCEPHALIC - Eye Exam Eye Exam: EOMI, Normal appearance, PERRL. absent: Scleral icterus Pupil Exam: PERRL Additional comments: light sensitivity b/l - ENT Exam ENT Exam: Mucous Membranes Moist - Cardiovascular Exam Cardiovascular Exam: RRR, +S1, +S2 - GI/Abdominal Exam GI & Abdominal Exam: Guarding (Voluntary ), Soft, Tenderness (LLQ and RLQ), Normal Bowel Sounds. absent: Distended - Extremities Exam Extremities Exam: Pedal Edema (Improved ) - Neurological Exam Neurological Exam: Alert, Awake, Oriented x3 - Psychiatric Exam Psychiatric exam: Normal Affect, Normal Mood - Skin Skin Exam: Normal Color, Warm Assessment and Plan - Assessment and Plan (Free Text) Assessment: 81 year old female with PMHx of HTN and DM admitted for evaluation and treatment and SOB. Plan: Dyspnea on exertion 2/2 to Diastolic CHF (Type II) Likely 2/2 to new onset CHF Cardio Consult - recs appreciated Echo - shows Grade II diastolic dysfunction. CXR - Moderate pulm venous congestion EUGENIA NEGATIVE x3 Lipid panel -WNL Meds: * Lasix 40 IV BID * Metoprolol Tartrate 25 PO BID * Crestor 10 PO HS * Aldactone 25 PO BID * Lisinopril 40 PO QD Microcytic Anemia Ferous Sulfate 325 BID Abdominal Pain likely 2/2 to constipation vs IUD (less likely) TV US showed fibroids but did not identify IUD Added Miralax Outpatient follow up for possible IUD. Leg pain F/U Venous doppler - Pending Read Hypertension Meds: * Lisinopril 40mg PO QD * Lasix 20 PO BID * Metoprolol Tartrate 25 PO BID Diabetes HgBA1c = 7.4 ISS High Accuchecks UTI (urinary tract infection) First UA contaminated Repeat UA shows trace Leuk Es. Urine Culture-Collected and Pending Patient is asymptomatic. We will wait for urine culture sensitivities. Prophylactic measure Heparin Colace Ambulate Zofran Patient Discussed with Attending Milo Matthews PGY-1 <Ventura Mittal - Last Filed: 08/09/17 15:36> Objective - Vital Signs/Intake and Output Vital Signs (last 24 hours): Temp Pulse Resp BP Pulse Ox 99.2 F 85 20 134/52 L 96 08/06/17 09:31 08/06/17 09:31 08/06/17 09:31 08/06/17 09:33 08/06/17 09:31 - Labs Labs: 08/06/17 06:11 08/06/17 06:11 PT 11.6 SECONDS (9.7-12.2) 07/20/17 18:03 INR 1.0 07/20/17 18:03 APTT 40 SECONDS (21-34) H D 07/21/17 01:27 Attending/Attestation - Attestation I have personally seen and examined this patient.: Yes I have fully participated in the care of the patient.: Yes I have reviewed all pertinent clinical information, including history, physical exam and plan: Yes Notes (Text): Dyspnea on exertion Likely 2/2 to new onset CHF Microcytic Anemia Ferous Sulfate 325 BID Leg pain F/U Venous doppler - Pending Read Hypertension
--- NOTE | 2017-07-19 15:02 | US ---
HISTORY: Check for old IUD. COMPARISON: None available. TECHNIQUE: Real-time transabdominal pelvic ultrasound was performed. In addition a transvaginal pelvic ultrasound was necessary to better depict pelvic anatomy. FINDINGS: UTERUS: Measures 7.2 x 3.8 x 4.9 cm. Anteverted. Heterogeneous uterine echotexture limits evaluation for small masses or fibroids. Evidence of calcified uterine fibroid measuring approximately 2.1 x 1.7 x 2.6 cm at the level the mid uterus. Probable calcified fundal fibroid measures approximately 2.7 x 2.7 x 2.7 cm. ENDOMETRIUM: Measures 3 mm in diameter. An IUD is not clearly identified. CERVIX: No cervical abnormality identified. RIGHT OVARY: Not visualized. LEFT OVARY: Not visualized. FREE FLUID: No significant free fluid noted. OTHER FINDINGS: None. IMPRESSION: Heterogeneous uterine echotexture. Probable calcified uterine fibroid measures maximally 2.6 cm in the mid uterus. Probable calcified fundal fibroid measures approximately 2.7 cm. An IUD is not clearly identified. Recommend further evaluation with abdominal x-ray. Bilateral ovaries were not visualized.
[2017-07-19] MEDS: POLYETHYLENE GLYCOL 3350 17 GM/Dose PACKET PO SCH (18:20)
--- NOTE | 2017-07-20 06:14 | CP.PCM.PN ---
Subjective - Date & Time of Evaluation Date of Evaluation: 07/19/17 Time of Evaluation: 08:00 - Subjective Subjective: feeling better no sob Objective - Vital Signs/Intake and Output Vital Signs (last 24 hours): Temp Pulse Resp BP Pulse Ox 98.4 F 72 20 163/74 H 96 07/20/17 00:15 07/20/17 00:15 07/20/17 00:15 07/20/17 00:15 07/20/17 00:15 - Medications Medications: Current Medications Acetaminophen (Tylenol 325mg Tab) 650 mg PO Q6 PRN PRN Reason: Pain, moderate (4-7) Docusate Sodium (Colace) 100 mg PO BID [facility] Last Admin: 07/19/17 18:27 Dose: 100 mg Ferrous Sulfate (Feosol) 325 mg PO TID [facility] Last Admin: 07/19/17 18:27 Dose: 325 mg Furosemide (Lasix) 40 mg IVP BID [facility] Last Admin: 07/19/17 18:27 Dose: 40 mg Heparin Sodium (Porcine) (Heparin) 5,000 units SC Q12 [facility] Last Admin: 07/19/17 21:40 Dose: 5,000 units Hydralazine HCl (Apresoline) 25 mg PO QID [facility] Last Admin: 07/19/17 21:39 Dose: 25 mg Ibuprofen (Motrin Tab) 400 mg PO Q6 PRN PRN Reason: Fever >100.4 F Insulin Human Regular (Novolin R) 0 unit SC ACHS [facility] PRN Reason: Protocol Last Admin: 07/19/17 21:40 Dose: Not Given Lisinopril (Zestril) 40 mg PO DAILY [facility] Last Admin: 07/19/17 09:24 Dose: 40 mg Metoprolol Tartrate (Lopressor) 25 mg PO BID [facility] Last Admin: 07/19/17 18:28 Dose: 25 mg Ondansetron HCl (Zofran Inj) 4 mg IVP Q6 PRN PRN Reason: Nausea/Vomiting Pneumococcal Polyvalent Vaccine (Pneumovax 23 Vaccine) 0.5 ml IM .ONCE ONE Stop: 07/20/17 10:01 Polyethylene Glycol (Miralax) 17 gm PO DAILY [facility] Last Admin: 07/19/17 18:20 Dose: 17 gm Rosuvastatin Calcium (Crestor) 10 mg PO HS [facility] Last Admin: 07/19/17 21:40 Dose: 10 mg Spironolactone (Aldactone) 25 mg PO BID [facility] Last Admin: 07/19/17 18:26 Dose: 25 mg - Labs Labs: 07/19/17 07:18 07/19/17 07:18 - Constitutional Appears: Non-toxic - Head Exam Head Exam: NORMAL INSPECTION - Eye Exam Eye Exam: absent: Scleral icterus - ENT Exam ENT Exam: Mucous Membranes Moist - Neck Exam Neck Exam: Full ROM - Respiratory Exam Respiratory Exam: Decreased Breath Sounds - Cardiovascular Exam Cardiovascular Exam: REGULAR RHYTHM - GI/Abdominal Exam GI & Abdominal Exam: absent: Soft - Extremities Exam Extremities Exam: absent: Pedal Edema Assessment and Plan - Assessment and Plan (Free Text) Assessment: CHF - diastolic, compensated Mild aortic stenosis Moderate pulmonary HTN Plan: Cont meds Lexiscan stress test in am
[2017-07-20] MEDS ORDERED: Aminophylline 25 mg/ml Inj ONE (07:33)
[2017-07-20 07:34] LABS: BASO % 0.7 % (0.0-2.0); EOS # 0.2 K/uL (0.0-0.7); EOS % 3.5 % (0.0-4.0); HEMATOCRIT 24.6 % (34.0-47.0); LYMPH # 1.7 K/uL (1.0-4.3); LYMPH % 31.5 % (20.0-40.0); MEAN CELL VOLUME 74.2 fL (81.0-99.0); MEAN CORPUSCULAR HEMOGLOBIN 24.1 pg (27.0-31.0); MEAN CORPUSCULAR HGB CONC 32.5 g/dL (33.0-37.0); MEAN PLATELET VOLUME 8.4 fL (7.2-11.7); MONO # 0.7 K/uL (0.0-0.8); MONO % 12.4 % (0.0-10.0); RED CELL DISTRIBUTION WIDTH 17.1 % (11.5-14.5); WHITE BLOOD COUNT 5.4 K/uL (4.8-10.8)
[2017-07-20 07:52] LABS: BILIRUBIN,TOTAL 0.5 mg/dL (0.2-1.3); CALCIUM 7.6 mg/dl (8.6-10.4); TOTAL PROTEIN 6.2 g/dL (6.3-8.3)
[2017-07-20 07:57] LABS: ALB/GLOB RATIO 1.2 (1.0-2.1)
[2017-07-20] MEDS: (Novolin R) Insulin Human Regular 100 units/ml vial SC SCH ×4 (08:10→22:02)
--- NOTE | 2017-07-20 09:54 | CP.PCM.PN ---
"Addendum entered and electronically signed by Ghanshyam Kaminski DO 07/20/17 20:52: Spoke with patient at bedside using interpretation services. Patient consented to cardiac catheterization in AM. Per Dr. Pearl, heparin drip is to be shut off at 4 AM, ~3 hours prior to procedure time. Will reach out to family/kin listed on chart. Original Note: <Milo Matthews - Last Filed: 07/20/17 14:34> Subjective - Date & Time of Evaluation Date of Evaluation: 07/20/17 Time of Evaluation: 09:48 - Subjective Subjective: Patient has been seen and examined. No overnight events reported. Patient does complain of headache, blurry vision (chronic) distal b/l lower extremity tenderness, and constipation . Denies any chest pain, SOB, fevers, chills, or urinary symptoms. Told patient that no IUD was found on ultrasound and that she should follow up with outpatient MANAGER BAKERY if this is still a concern. After stress test patient had elevated BP with systolic pressure > than 200 and also complained of 8/10 chest pressure. Stat EKG was not ordered because patient just came from stress test. Asked nurse to give her [facility] Blood pressure medications and ordered Stat Aspirin. Objective - Vital Signs/Intake and Output Vital Signs (last 24 hours): Temp Pulse Resp BP Pulse Ox 98.2 F 71 20 193/87 H 97 07/20/17 08:49 07/20/17 08:49 07/20/17 08:49 07/20/17 08:49 07/20/17 08:49 - Medications Medications: Current Medications Acetaminophen (Tylenol 325mg Tab) 650 mg PO Q6 PRN PRN Reason: Pain, moderate (4-7) Docusate Sodium (Colace) 100 mg PO BID [facility] Last Admin: 07/19/17 18:27 Dose: 100 mg Ferrous Sulfate (Feosol) 325 mg PO TID [facility] Last Admin: 07/19/17 18:27 Dose: 325 mg Furosemide (Lasix) 40 mg IVP BID [facility] Last Admin: 07/19/17 18:27 Dose: 40 mg Heparin Sodium (Porcine) (Heparin) 5,000 units SC Q12 [facility] Last Admin: 07/19/17 21:40 Dose: 5,000 units Hydralazine HCl (Apresoline) 25 mg PO QID [facility] Last Admin: 07/19/17 21:39 Dose: 25 mg Hydralazine HCl (Apresoline) 10 mg IVP Q6H PRN PRN Reason: Systolic Blood Pressure Ibuprofen (Motrin Tab) 400 mg PO Q6 PRN PRN Reason: Fever >100.4 F Insulin Human Regular (Novolin R) 0 unit SC ACHS [facility] PRN Reason: Protocol Last Admin: 07/20/17 08:10 Dose: Not Given Lisinopril (Zestril) 40 mg PO DAILY [facility] Last Admin: 07/19/17 09:24 Dose: 40 mg Metoprolol Tartrate (Lopressor) 25 mg PO BID [facility] Last Admin: 07/19/17 18:28 Dose: 25 mg Ondansetron HCl (Zofran Inj) 4 mg IVP Q6 PRN PRN Reason: Nausea/Vomiting Pneumococcal Polyvalent Vaccine (Pneumovax 23 Vaccine) 0.5 ml IM .ONCE ONE Stop: 07/20/17 10:01 Polyethylene Glycol (Miralax) 17 gm PO DAILY [facility] Last Admin: 07/19/17 18:20 Dose: 17 gm Rosuvastatin Calcium (Crestor) 10 mg PO HS [facility] Last Admin: 07/19/17 21:40 Dose: 10 mg Spironolactone (Aldactone) 25 mg PO BID [facility] Last Admin: 07/19/17 18:26 Dose: 25 mg - Labs Labs: 07/20/17 07:26 07/20/17 07:26 - Head Exam Head Exam: ATRAUMATIC, NORMAL INSPECTION, NORMOCEPHALIC - Eye Exam Eye Exam: EOMI, PERRL. absent: Scleral icterus Additional comments: light sensitivity b/l - ENT Exam ENT Exam: Mucous Membranes Moist - Respiratory Exam Respiratory Exam: Clear to Ausculation Bilateral, NORMAL BREATHING PATTERN. absent: Accessory Muscle Use, Rales, Rhonchi, Wheezes, Respiratory Distress - Cardiovascular Exam Cardiovascular Exam: RRR, +S1, +S2. absent: Tachycardia, Clicks, Diastolic murmur, Murmur - GI/Abdominal Exam GI & Abdominal Exam: Soft, Normal Bowel Sounds. absent: Tenderness - Extremities Exam Extremities Exam: Pedal Edema (trace and Improved ) - Neurological Exam Neurological Exam: Alert, Awake, Oriented x3 - Psychiatric Exam Psychiatric exam: Normal Affect, Normal Mood - Skin Skin Exam: Dry, Intact, Normal Color, Warm Assessment and Plan - Assessment and Plan (Free Text) Assessment: 81 year old female with PMHx of HTN and DM admitted for evaluation and treatment and SOB. Plan: Dyspnea on exertion 2/2 to Diastolic CHF (Type II) Likely 2/2 to new onset CHF Cardio Consult - recs appreciated Echo - shows Grade II diastolic dysfunction. CXR - Moderate pulm venous congestion EUGENIA NEGATIVE x3 ||| EUGENIA (07/20/2017) Showed 0.184 Trop Repeat EUGENIA ordered. EKG (07/20/17) NSR. Repeat ordered. Lipid panel -WNL Stress Test (07/20/17) - Results Pending Meds: * Lasix 40 IV BID * Metoprolol Tartrate 25 PO BID * Crestor 10 PO HS * Aldactone 25 PO BID * Lisinopril 40 PO QD * Added Coreg 3.125 BID per Cardio * Added Duonebs per Cardio * Added Nitropaste per Cardio. * Spoke with Cardio (Dr. Pearl) on the phone. He stated that patient may need cardiac Cath. Microcytic Anemia Ferous Sulfate 325 BID Abdominal Pain (Resolved) likely 2/2 to constipation TV US showed fibroids but did not identify IUD Added Miralax Outpatient MANAGER BAKERY follow for possible IUD and uterine fibroids Leg pain F/U Venous doppler - NEGATIVE for DVT Consider Gabapentin Hypertension Meds: * Lisinopril 40mg PO QD * Lasix 20 PO BID * Metoprolol Tartrate 25 PO BID Changed to Coreg 3.125 BID per Cardio * Hydralazine 25 PO QID [facility] * Added Nitropaste Diabetes HgBA1c = 7.4 ISS High Accuchecks UTI (urinary tract infection) First UA contaminated Repeat UA shows trace Leuk Es. Urine Culture-Collected and Pending Patient is asymptomatic. We will wait for urine culture sensitivities. Prophylactic measure Heparin Colace Ambulate Zofran Patient Discussed with Attending Milo Matthews PGY-1 <Kate Weems V - Last Filed: 07/21/17 07:59> Objective - Vital Signs/Intake and Output Vital Signs (last 24 hours): Temp Pulse Resp BP Pulse Ox 98.5 F 85 20 158/75 H 97 07/21/17 07:18 07/21/17 07:18 07/21/17 07:18 07/21/17 07:18 07/21/17 07:18 - Medications Medications: Current Medications Acetaminophen (Tylenol 325mg Tab) 650 mg PO Q6 PRN PRN Reason: Pain, moderate (4-7) Albuterol/Ipratropium (Duoneb 3 Mg/0.5 Mg (3 Ml) Ud) 3 ml INH RQ6 [facility] Last Admin: 07/21/17 07:28 Dose: Not Given Aspirin (Aspirin Chewable) 81 mg PO DAILY [facility] Carvedilol (Coreg) 3.125 mg PO BID [facility] Last Admin: 07/20/17 18:22 Dose: 3.125 mg Docusate Sodium (Colace) 100 mg PO BID [facility] Last Admin: 07/20/17 18:22 Dose: 100 mg Ferric Sodium Gluconate Complex (Ferrlecit) 125 mg IVPB DAILY [facility] Stop: 07/29/17 10:01 Furosemide (Lasix) 40 mg IVP BID [facility] Last Admin: 07/20/17 18:23 Dose: 40 mg Hydralazine HCl (Apresoline) 25 mg PO QID [facility] Last Admin: 07/20/17 22:00 Dose: 25 mg Hydralazine HCl (Apresoline) 10 mg IVP Q6H PRN PRN Reason: Systolic Blood Pressure Last Admin: 07/20/17 11:39 Dose: 10 mg Insulin Human Regular (Novolin R) 0 unit SC [facility] PRN Reason: Protocol Last Admin: 07/20/17 22:02 Dose: Not Given Lisinopril (Zestril) 40 mg PO DAILY [facility] Last Admin: 07/20/17 09:56 Dose: 40 mg Nitroglycerin (Nitro-Bid 2% Oint) 1 ea TOP Q6H PRN PRN Reason: Pain, severe (8-10) Ondansetron HCl (Zofran Inj) 4 mg IVP Q6 PRN PRN Reason: Nausea/Vomiting Polyethylene Glycol (Miralax) 17 gm PO DAILY [facility] Last Admin: 07/20/17 09:58 Dose: Not Given Rosuvastatin Calcium (Crestor) 10 mg PO HS [facility] Last Admin: 07/20/17 22:01 Dose: 10 mg Spironolactone (Aldactone) 25 mg PO BID [facility] Last Admin: 07/20/17 18:32 Dose: 25 mg - Labs Labs: 07/20/17 07:26 07/20/17 07:26 PT 11.6 SECONDS (9.7-12.2) 07/20/17 18:03 INR 1.0 07/20/17 18:03 APTT 40 SECONDS (21-34) H D 07/21/17 01:27 Attending/Attestation - Attestation I have personally seen and examined this patient.: Yes I have fully participated in the care of the patient.: Yes I have reviewed all pertinent clinical information, including history, physical exam and plan: Yes Notes (Text): This is late computer entry for 07/20/17. Patient seen, examined, and case discussed with day and night residents. Patient seen this morning following completion of the stress test seen with patient's son and daughter at bedside. Patient reports she feels a little bit of chest pain, associated mild headache, patient has uncontrolled blood pressure 210 Systolic w/o oral anti-hypertensives given PO meds following completion of stress test SBP 190s. Patient given 4 Aspirin 81mg PO X1, ordered for the EKG (disregard the chief internal auditor note), and EUGENIA. EKG shows NSR no acute changes from prior EKG but patient has mild troponin rise. Patient's EKG and EUGENIA repeated later in the day, troponin with mild rise. Patient started on heparin drip. Patient's blood pressure improved to 140s., was recommended for Nitropaste by cardiology. Patient also reports she does have a history of anemia, was on iron supplements prior to coming in to the hospital, but denies endoscopy/colonoscopy. Cardiology was contacted recommended for cardiac cath if patient consents. Patient completed stress test earlier today; read in the evening. Night resident, Ghanshyam Kaminski PGY-2, spoke with the patient using [facility] Practitioner service, patient consented to the cardiac cath. patient put on herparin drip for cardiac cath in the morning. Assessment/Plan 1) Dyspnea on exertion 2/2 to Diastolic CHF (Type II) * Likely 2/2 to new onset CHF * Cardiology (Dr. Pearl)- recs appreciated * Echo - shows Grade II diastolic dysfunction. * CXR - Moderate pulm venous congestion * EUGENIA NEGATIVE x3 * Lipid panel -WNL * Myocardial Stress Test (07/20/17): small reversible perfusion/metabolism defect in the basal anterolateral wall suggestive of ischemia, left ventricle systolic function is luis; EF: 55-60% Meds: * Lasix 40mg IV BID * Coreg 3.125mg PO BID * Aspirin 81mg PO daily * Crestor 10mg PO HS * Aldactone 25mg PO BID * Lisinopril 40mg PO QDaily * nitroBid 1% ointment 1 each topical Q6 H prn pain 2) Iron Deficiency Anemia * Order reticulocyte count, iron studies, ferritin, reti count, occult blood * Start on Ferrlecit 125mg IVPB (active since 07/21-07/29) given low iron saturation 10% * Heme-onc: Dr. Louise Sullivan on consult--f/u recommendations 3) Abdominal Pain * Resolved * Had bowel movement prior to my arrival 4) Leg pain * F/U Venous doppler - Pending Read 5) Hypertension * Lasix 40mg IV BID * Coreg 3.125mg PO BID * Aldactone 25mg PO BID * Lisinopril 40mg PO QDaily * nitroBid 1% ointment 1 each topical Q6 H prn pain 6) Diabetes * HgBA1c = 7.4 * ISS High * Accuchecks QAC and HS 7) Asymptomatic Bacturia * Abnormal UA; 2= to trace esterase * Urine culture: contaminated * Repeat ordered 8) Prophylactic measure * Heparin drip given Nonstemi * Colace 100mg PO BID * Ambulate"
[2017-07-20] MEDS: POLYETHYLENE GLYCOL 3350 17 GM/Dose PACKET PO SCH (09:58)
[2017-07-20] MEDS ORDERED: Pneumococcal 23-Valent Vaccine IM ONE (10:00)
[2017-07-20 12:22] LABS: IRON 45 ug/dL (37-170)
[2017-07-20 13:29] LABS: FOLATE 15.3 ng/mL
[2017-07-20] MEDS ORDERED: Influenza Vaccine 60 mcg/0.5 mL SYR (4YR UP) IM ONE (14:00)
[2017-07-20] MEDS ORDERED: Nitroglycerin 2% Ointment Foilpak UD TOP PRN (16:50)
[2017-07-20] MEDS ORDERED: Heparin25000 units/250ml 1/2NS 25,000 UNITS/250 ML BAG IV PRN (17:00)
--- NOTE | 2017-07-20 17:05 | CARD ---
APPROVED REPORT EKG Measurement Heart [id number] <Conclusion> Normal sinus rhythm Normal ECG
[2017-07-20] MEDS ORDERED: Nitroglycerin 2% Ointment Foilpak UD TOP SCH (18:00)
--- NOTE | 2017-07-20 19:31 | CARD ---
APPROVED REPORT Protocol: PHARMACOLOGICAL STRESS Test Type: LEXISCAN Test Indications: CHF Medications: LIST SCAN Medical History: CHF Target HR: 141 bpm Resting ECG: NSR Resting Heart Rate: 65 bpm Resting Blood Pressure: 150/70mmHg submaximum (85%): 120 bpm TEST SUMMARY [id number]. INFUSIONDOSE 100:300.00.01.063/.1. [id number]/70.1. PROCEDURE Pharmacologic stress testing was performed using 0.4mg per 5ml of regadenoson given intravenously over 7-10 seconds. Reversal agent aminophyline 125 mg, given intravenously for Dyspnea. POST EXERCISE Reason for Termination: Protocol Completed Target HR: No Max HR: 63 bpm 59% of Maximum Predicted HR: 141 bpm Exercise duration: 00:30 min:sec, 0 Stage Exercise capacity: 1.0METs Max Blood Pressure: 160/70mmHg Blood Pressure response to exercise: normal resting BP - appropriate response Heart Rate response to exercise: appropriate Chest Pain: No, none Angina index: 0 Arrhythmia: No, none ST Change: No, none Deviation: 0 mm INTERPRETATION Stress EKG Conclusion: NEGATIVE LEXISCAN STRESS TEST NORMAL BP RESPONSE TO LEXISCAN VPB'S NUCLEAR STUDIES TO BE READ SEPARATELY EXAM: Myocardial Perfusion STRESS/REST Imaging Protocol The imaging protocol used to acquire images was Stress Tc-99m/rest Tc-99m 1 day Stress Spect myocardial perfusion imaging was performed in supine position 45 minutes following the injection of 12.5 mCi of Tc-99 Myoview. Gated Rest Spect was performed 55 minutes after intravenous 32.1 mci Tc-99 Myoview injection. The images were gated to evaluate regional wall motion and calculate ventricular ejection fraction.Images were reconstructed using backfilter projection method in short horizontal and verticle long axis. Spect slices were generated. RESTING DATA [id number]/min ESV43.00mlMyocardial Waby490.00g Av. Heart Rate61.00bpm EF60.00% STRESS DATA EFQ779.92dbFV2.30L/min ESV41.00mlMyocardial Quuo046.00g EF65.00% Regional WT score at stress:0.00 Regional WM score at stress:0.00 Summed WT score at stress:13.00 Av. Heart Rate84.00bpmSummed WM score at stress:0.00 LV Perf. Quant 17 Seg. SSS4.00 17 Seg. SRS9.00 17 Seg. SDS0.00 Stress Defect Extent (% LAD)0.00Rest Defect Extent (% LAD)0.00Rev. Defect Extent (% LAD)0.00 Stress Defect Extent (% LCX)51.30Rest Defect Extent (% LCX)68.80Rev. Defect Extent (% LCX)2.50 Stress Defect Extent (% RCA)0.00Rest Defect Extent (% RCA)0.00Rev. Defect Extent (% RCA)0.00 Stress Defect Extent (% ETIENNE)8.90Rest Defect Extent (% ETIENNE)16.50Rev. Defect Extent (% ETIENNE)0.40 IMPRESSION Abnormal Myocardial Perfusion exercise stress study Left Ventricle LV Size/Shape: The left ventricle is normal size. LV Function:Left ventricle systolic function is normal. The Ejection Fraction is 55-60%. Regional Wall Motion:There is normal left ventricular wall motion. Metabolism/Perfusion Reversible/Irreversible: There is a small reversible perfusion/metabolism defect in the Basal anterolateral wall suggestive of ischemia. Conclusion 1. There is a small reversible perfusion/metabolism defect in the Basal anterolateral wall suggestive of ischemia. 2. Left ventricle systolic function is normal. 3. The Ejection Fraction is 55-60%.
[2017-07-20] MEDS: Albuterol-Ipratrop 3 mg / 0.5 (3 ml) UD INH SCH (20:51)
[2017-07-21] MEDS: Albuterol-Ipratrop 3 mg / 0.5 (3 ml) UD INH SCH ×4 (01:21→19:21)
[2017-07-21] MEDS: (Novolin R) Insulin Human Regular 100 units/ml vial SC SCH ×4 (08:13→22:05)
[2017-07-21 08:48] LABS: BASO % 0.7 % (0.0-2.0); EOS # 0.2 K/uL (0.0-0.7); EOS % 2.1 % (0.0-4.0); LYMPH # 2.1 K/uL (1.0-4.3); LYMPH % 28.2 % (20.0-40.0); MEAN CELL VOLUME 74.5 fL (81.0-99.0); MEAN CORPUSCULAR HEMOGLOBIN 23.8 pg (27.0-31.0); MEAN CORPUSCULAR HGB CONC 31.9 g/dL (33.0-37.0); MEAN PLATELET VOLUME 8.8 fL (7.2-11.7); MONO # 0.6 K/uL (0.0-0.8); MONO % 8.7 % (0.0-10.0); NRBC % 0.1 % (0.0-2.0); RED CELL DISTRIBUTION WIDTH 17.3 % (11.5-14.5); WHITE BLOOD COUNT 7.4 K/uL (4.8-10.8)
[2017-07-21] MEDS ORDERED: Midazolam 2 MG/2 ML VIAL ONE (09:15)
[2017-07-21 09:17] LABS: ALB/GLOB RATIO 1.2 (1.0-2.1); BILIRUBIN,TOTAL 0.6 mg/dL (0.2-1.3); CALCIUM 7.6 mg/dl (8.6-10.4); TOTAL PROTEIN 6.3 g/dL (6.3-8.3)
--- NOTE | 2017-07-21 09:45 | CP.PCM.PN ---
Subjective - Date & Time of Evaluation Date of Evaluation: 07/21/17 Time of Evaluation: 09:39 - Subjective Subjective: PROCEDURE NOTE Proc: [facility] Coronary arteriogram LVgram Indic: ACS DOS: 07/21/17 RESULTS Coronary arteriogram Left main - nL LAD - nL LCx - nL; dominant circulation RCA - nL; non-dominant LEFT VENTRICULOGRAM EF = 70% no gradient across the aortic valve Impression: Angiographically normal coronaries Normal LV systolic function PLAN: Modify cardiac risk factors CHF most likely diastolic in nature Objective - Vital Signs/Intake and Output Vital Signs (last 24 hours): Temp Pulse Resp BP Pulse Ox 98.5 F 85 20 158/75 H 97 07/21/17 07:18 07/21/17 07:18 07/21/17 07:18 07/21/17 07:18 07/21/17 07:18 - Medications Medications: Current Medications Acetaminophen (Tylenol 325mg Tab) 650 mg PO Q6 PRN PRN Reason: Pain, moderate (4-7) Albuterol/Ipratropium (Duoneb 3 Mg/0.5 Mg (3 Ml) Ud) 3 ml INH RQ6 [facility] Last Admin: 07/21/17 07:28 Dose: Not Given Aspirin (Aspirin Chewable) 81 mg PO DAILY [facility] Carvedilol (Coreg) 3.125 mg PO BID [facility] Last Admin: 07/20/17 18:22 Dose: 3.125 mg Docusate Sodium (Colace) 100 mg PO BID [facility] Last Admin: 07/20/17 18:22 Dose: 100 mg Ferric Sodium Gluconate Complex (Ferrlecit) 125 mg IVPB DAILY [facility] Stop: 07/29/17 10:01 Furosemide (Lasix) 40 mg IVP BID [facility] Last Admin: 07/20/17 18:23 Dose: 40 mg Hydralazine HCl (Apresoline) 25 mg PO QID [facility] Last Admin: 07/20/17 22:00 Dose: 25 mg Hydralazine HCl (Apresoline) 10 mg IVP Q6H PRN PRN Reason: Systolic Blood Pressure Last Admin: 07/20/17 11:39 Dose: 10 mg Insulin Human Regular (Novolin R) 0 unit SC ACHS [facility] PRN Reason: Protocol Last Admin: 07/21/17 08:13 Dose: Not Given Lisinopril (Zestril) 40 mg PO DAILY [facility] Last Admin: 07/20/17 09:56 Dose: 40 mg Nitroglycerin (Nitro-Bid 2% Oint) 1 ea TOP Q6H PRN PRN Reason: Pain, severe (8-10) Ondansetron HCl (Zofran Inj) 4 mg IVP Q6 PRN PRN Reason: Nausea/Vomiting Polyethylene Glycol (Miralax) 17 gm PO DAILY [facility] Last Admin: 07/20/17 09:58 Dose: Not Given Rosuvastatin Calcium (Crestor) 10 mg PO HS [facility] Last Admin: 07/20/17 22:01 Dose: 10 mg Spironolactone (Aldactone) 25 mg PO BID [facility] Last Admin: 07/20/17 18:32 Dose: 25 mg - Labs Labs: 07/21/17 08:38 07/21/17 08:38 PT 11.6 SECONDS (9.7-12.2) 07/20/17 18:03 INR 1.0 07/20/17 18:03 APTT 40 SECONDS (21-34) H D 07/21/17 01:27
[2017-07-21] MEDS: Ferric Sodium Gluconat Complex 62.5 mg/5 ml Vial IVPB SCH (12:11)
[2017-07-21] MEDS ORDERED: Epoetin Alfa 20000 UNIT/ML Inj SC ONE (12:30)
--- NOTE | 2017-07-21 13:20 | CP.PCM.PN ---
"<Milo Matthews - Last Filed: 07/21/17 13:17> Subjective - Date & Time of Evaluation Date of Evaluation: 07/21/17 Time of Evaluation: 13:17 - Subjective Subjective: Patient has been seen and examined. No overnight events reported. Patient reported improvement of her chest pain and headache. She also states that she had a small watery bowel movement without blood. Denies any SOB, abdominal pain , or urinary symptoms. Objective - Vital Signs/Intake and Output Vital Signs (last 24 hours): Temp Pulse Resp BP Pulse Ox 98 F 81 20 151/66 H 98 07/21/17 11:20 07/21/17 12:02 07/21/17 11:20 07/21/17 12:10 07/21/17 11:20 - Medications Medications: Current Medications Acetaminophen (Tylenol 325mg Tab) 650 mg PO Q6 PRN PRN Reason: Pain, moderate (4-7) Albuterol/Ipratropium (Duoneb 3 Mg/0.5 Mg (3 Ml) Ud) 3 ml INH RQ6 [facility] Last Admin: 07/21/17 07:28 Dose: Not Given Aspirin (Aspirin Chewable) 81 mg PO DAILY [facility] Last Admin: 07/21/17 12:06 Dose: 81 mg Carvedilol (Coreg) 3.125 mg PO BID [facility] Last Admin: 07/21/17 12:07 Dose: 3.125 mg Docusate Sodium (Colace) 100 mg PO BID [facility] Last Admin: 07/21/17 12:06 Dose: 100 mg Ferric Sodium Gluconate Complex (Ferrlecit) 125 mg IVPB DAILY [facility] Stop: 07/29/17 10:01 Last Admin: 07/21/17 12:11 Dose: 125 mg Furosemide (Lasix) 40 mg IVP BID [facility] Last Admin: 07/21/17 12:10 Dose: 40 mg Hydralazine HCl (Apresoline) 25 mg PO QID [facility] Last Admin: 07/21/17 12:07 Dose: 25 mg Hydralazine HCl (Apresoline) 10 mg IVP Q6H PRN PRN Reason: Systolic Blood Pressure Last Admin: 07/20/17 11:39 Dose: 10 mg Dextrose/Sodium Chloride (Dextrose 5%-0.45% Ns 500 Ml) 500 mls @ 60 mls/hr IV .Q8H20M [facility] Insulin Human Regular (Novolin R) 0 unit SC ACHS [facility] PRN Reason: Protocol Last Admin: 07/21/17 08:13 Dose: Not Given Lisinopril (Zestril) 40 mg PO DAILY [facility] Last Admin: 07/21/17 12:06 Dose: 40 mg Nitroglycerin (Nitro-Bid 2% Oint) 1 ea TOP Q6H PRN PRN Reason: Pain, severe (8-10) Ondansetron HCl (Zofran Inj) 4 mg IVP Q6 PRN PRN Reason: Nausea/Vomiting Rosuvastatin Calcium (Crestor) 10 mg PO HS [facility] Last Admin: 07/20/17 22:01 Dose: 10 mg Spironolactone (Aldactone) 25 mg PO BID [facility] Last Admin: 07/21/17 12:07 Dose: 25 mg - Labs Labs: 07/21/17 08:38 07/21/17 08:38 PT 11.6 SECONDS (9.7-12.2) 07/20/17 18:03 INR 1.0 07/20/17 18:03 APTT 40 SECONDS (21-34) H D 07/21/17 01:27 - Additional Findings Additional findings: - Head Exam Head Exam: ATRAUMATIC, NORMAL INSPECTION, NORMOCEPHALIC - Eye Exam Eye Exam: EOMI, PERRL. absent: Scleral icterus Additional comments: light sensitivity b/l - ENT Exam ENT Exam: Mucous Membranes Moist - Respiratory Exam Respiratory Exam: Clear to Ausculation Bilateral, NORMAL BREATHING PATTERN. absent: Accessory Muscle Use, Rales, Rhonchi, Wheezes, Respiratory Distress - Cardiovascular Exam Cardiovascular Exam: RRR, +S1, +S2. absent: Tachycardia, Clicks, Diastolic murmur, Murmur - GI/Abdominal Exam GI & Abdominal Exam: Soft, Normal Bowel Sounds. absent: Tenderness - Extremities Exam Extremities Exam: Pedal Edema (trace and Improved ) - Neurological Exam Neurological Exam: Alert, Awake, Oriented x3 - Psychiatric Exam Psychiatric exam: Normal Affect, Normal Mood - Skin Skin Exam: Dry, Intact, Normal Color, Warm Assessment and Plan - Assessment and Plan (Free Text) Assessment: 81 year old female with PMHx of HTN and DM admitted for evaluation and treatment and SOB. Plan: Dyspnea on exertion 2/2 to Diastolic CHF (Type II) Likely 2/2 to new onset CHF Cardio Consult - recs appreciated Echo - shows Grade II diastolic dysfunction. CXR - Moderate pulm venous congestion EUGENIA NEGATIVE x3 ||| EUGENIA (07/20/2017) Showed 0.184 inc. to 0.196 and began downtrending EKG (07/20/17) NSR. Repeat ordered. Lipid panel -WNL Stress Test (07/20/17) - Showed defect possibly representing ischemia Cardiac Cath (07/21/17) - Angiographically normal coronaries and normal LV systolic function Meds: * Lasix 40 IV BID * Crestor 10 PO HS * Aldactone 25 PO BID * Lisinopril 40 PO QD * Added Coreg 3.125 BID per Cardio * Added Duonebs per Cardio * Added Nitropaste per Cardio. * Microcytic Anemia Ferous Sulfate 325 BID Abdominal Pain (Resolved) likely 2/2 to constipation TV US showed fibroids but did not identify IUD Added Miralax Outpatient [employer] follow for possible IUD and uterine fibroids Leg pain F/U Venous doppler - NEGATIVE for DVT Consider Gabapentin Hypertension Meds: * Lisinopril 40mg PO QD * Lasix 40 IV BID. Consider switching back to Lasix 20 PO BID * Coreg 3.125 BID per Cardio * Hydralazine 25 PO QID [facility] * Added Nitropaste Diabetes HgBA1c = 7.4 ISS High Accuchecks UTI (urinary tract infection) First UA contaminated Repeat UA shows trace Leuk Es. Urine Culture-Collected and Pending Patient is asymptomatic. We will wait for urine culture sensitivities. Prophylactic measure Heparin Colace Ambulate Zofran Dispo: Will follow up with cardio about discharge plans. Patient Discussed with Attending Milo Matthews PGY-1 <Kate Weems V - Last Filed: 07/21/17 22:32> Objective - Vital Signs/Intake and Output Vital Signs (last 24 hours): Temp Pulse Resp BP Pulse Ox 98.2 F 79 20 166/62 H 98 07/21/17 15:19 07/21/17 16:41 07/21/17 15:19 07/21/17 17:50 07/21/17 15:19 Intake and Output: 07/21/17 07/22/17 18:59 06:59 Intake Total 350 Balance 350 - Medications Medications: Current Medications Acetaminophen (Tylenol 325mg Tab) 650 mg PO Q6 PRN PRN Reason: Pain, moderate (4-7) Albuterol/Ipratropium (Duoneb 3 Mg/0.5 Mg (3 Ml) Ud) 3 ml INH RQ6 [facility] Last Admin: 07/21/17 19:21 Dose: 3 ml Aspirin (Aspirin Chewable) 81 mg PO DAILY [facility] Last Admin: 07/21/17 12:06 Dose: 81 mg Carvedilol (Coreg) 6.25 mg PO BID [facility] Last Admin: 07/21/17 17:50 Dose: 6.25 mg Docusate Sodium (Colace) 100 mg PO BID [facility] Last Admin: 07/21/17 17:50 Dose: 100 mg Ferric Sodium Gluconate Complex (Ferrlecit) 125 mg IVPB DAILY [facility] Stop: 07/29/17 10:01 Last Admin: 07/21/17 12:11 Dose: 125 mg Furosemide (Lasix) 40 mg IVP BID [facility] Last Admin: 07/21/17 17:50 Dose: 40 mg Hydralazine HCl (Apresoline) 10 mg IVP Q6H PRN PRN Reason: Systolic Blood Pressure Last Admin: 07/20/17 11:39 Dose: 10 mg Hydralazine HCl (Apresoline) 50 mg PO Q8H [facility] Dextrose/Sodium Chloride (Dextrose 5%-0.45% Ns 500 Ml) 500 mls @ 60 mls/hr IV .Q8H20M [facility] Insulin Human Regular (Novolin R) 0 unit SC ACHS [facility] PRN Reason: Protocol Last Admin: 07/21/17 22:05 Dose: Not Given Lisinopril (Zestril) 40 mg PO DAILY [facility] Last Admin: 07/21/17 12:06 Dose: 40 mg Nitroglycerin (Nitro-Bid 2% Oint) 1 ea TOP Q6H PRN PRN Reason: Pain, severe (8-10) Ondansetron HCl (Zofran Inj) 4 mg IVP Q6 PRN PRN Reason: Nausea/Vomiting Rosuvastatin Calcium (Crestor) 10 mg PO HS [facility] Last Admin: 07/21/17 22:03 Dose: 10 mg Spironolactone (Aldactone) 25 mg PO BID [facility] Last Admin: 07/21/17 17:50 Dose: 25 mg - Labs Labs: 07/21/17 08:38 07/21/17 08:38 PT 11.6 SECONDS (9.7-12.2) 07/20/17 18:03 INR 1.0 07/20/17 18:03 APTT 40 SECONDS (21-34) H D 07/21/17 01:27 Attending/Attestation - Attestation I have personally seen and examined this patient.: Yes I have fully participated in the care of the patient.: Yes I have reviewed all pertinent clinical information, including history, physical exam and plan: Yes Notes (Text): Patient seen, examined, and case discussed with day time resident. Patient seen this morning following completion of cardiac cath. Discussed with patient's nurse to discontinue heparin drip. Patient given NS 500 cc bolus X1 in the label stamper, and started on gentle IV hydration post-cath. Patient's blood pressure uncontrolled post cath. Increased beta-korey to 6.25mg PO BID and increased hydralazine 50mg PO Q8H. Discussed with heme-onc, patient ordered for hemoglobinpathy eval and given Procrit IV. Patient's creatinine had mild elevation (Cr: 1.5); is ordered for gentle IV hydration, will monitor kidney function. Assessment/Plan 1) Dyspnea on exertion 2/2 to Diastolic CHF (Type II) * Likely 2/2 to new onset CHF * Cardiology (Dr. Pearl)- recs appreciated * Echo - shows Grade II diastolic dysfunction. * CXR - Moderate pulm venous congestion * EUGENIA NEGATIVE x3 * Lipid panel -WNL * Myocardial Stress Test (07/20/17): small reversible perfusion/metabolism defect in the basal anterolateral wall suggestive of ischemia, left ventricle systolic function is luis; EF: 55-60% * Cardiac cath: normal coronaries Meds: * Lasix 40mg IV BID * Increase Coreg 6.25mg PO BID * Aspirin 81mg PO daily * Crestor 10mg PO HS * Aldactone 25mg PO BID * Lisinopril 40mg PO QDaily * nitroBid 1% ointment 1 each topical Q6 H prn pain 2) Iron Deficiency Anemia * Order reticulocyte count, iron studies, ferritin, reti count, occult blood--> reviewed with heme-onc today * Heme-onc: Dr. Louise Sullivan on consult--> hemoglobinpathy eval and Procrit 3) Abdominal Pain * Resolved * Had bowel movement prior to my arrival 4) Leg pain * F/U Venous doppler - Pending Read-->will f/u with radiologist in the AM 5) Hypertension * Lasix 40mg IV BID * Coreg 6.25mg PO BID * Aldactone 25mg PO BID * Lisinopril 40mg PO QDaily * Increase Hydralzine 50mg PO tid * nitroBid 1% ointment 1 each topical Q6 H prn pain 6) Diabetes * HgBA1c = 7.4 * ISS High * Accuchecks QAC and HS 7) Asymptomatic Bacturia * Abnormal UA; 2= to trace esterase * Urine culture: contaminated * Repeat ordered-->pending 8) Prophylactic measure * d/c heparin drip in light of normal coronaries * Colace 100mg PO BID * Ambulate Disposition: will f/u cardiology to see if patient is stable from cardiology for discharge, optimal blood pressure control in light of CHF, and monitor kidney function"
--- NOTE | 2017-07-21 13:32 | CP.PCM.CON ---
History of Present Illness - History of Present Illness History of Present Illness: 81 year old female with a history of HTN, DM, admitted with CHF exacerbation found to be anemic. The patient is unaware of having blood problems in the past. She denies abnormal bleeding and bruising. She did feel weak and was experiencing progressive shortness of breath in the days preceding her admission. She is feeling better today but notes to loose stools. Her shortness of breath is improved. Past medical history: HTN, DM, CHF Past surgical history: Denies Family history: Denies hematologic and oncologic problems Social history: Denies tobacco, alcohol, and illicit drug use. Allergies: NKA Review of systems: All remaining review of systems including HEENT, cardiovascular, respiratory, gastrointestinal, genitourinary, musculoskeletal, dermatologic, neurologic, and psychiatric are negative unless mentioned in the HPI. Past Patient History - Infectious Disease Hx of Infectious Diseases: None - Past Medical History & Family History Past Medical History?: Yes - Past Social History Smoking Status: Never Smoked - CARDIAC Hx Cardiac Disorders: Yes Hx Hypercholesterolemia: Yes Hx Hypertension: Yes - PULMONARY Hx Respiratory Disorders: No - NEUROLOGICAL Hx Neurological Disorder: No - HEENT Hx HEENT Problems: No - RENAL Hx Chronic Kidney Disease: No - ENDOCRINE/METABOLIC Hx Endocrine Disorders: Yes Hx Diabetes Mellitus Type 2: Yes - HEMATOLOGICAL/ONCOLOGICAL Hx Blood Disorders: Yes Hx Anemia: Yes - INTEGUMENTARY Hx Dermatological Problems: No - MUSCULOSKELETAL/RHEUMATOLOGICAL Hx Musculoskeletal Disorders: No Hx Falls: No - GASTROINTESTINAL Hx Gastrointestinal Disorders: No - GENITOURINARY/GYNECOLOGICAL Hx Genitourinary Disorders: No - PSYCHIATRIC Hx Psychophysiologic Disorder: No Hx Substance Use: No - SURGICAL HISTORY Hx Surgeries: No - ANESTHESIA Hx Anesthesia: No Meds Allergies/Adverse Reactions: Allergies Allergy/AdvReac Type Severity Reaction Status Date / Time No Known Allergies Allergy Verified 07/17/17 12:52 - Medications Medications: Current Medications Acetaminophen (Tylenol 325mg Tab) 650 mg PO Q6 PRN PRN Reason: Pain, moderate (4-7) Albuterol/Ipratropium (Duoneb 3 Mg/0.5 Mg (3 Ml) Ud) 3 ml INH RQ6 [facility] Last Admin: 07/21/17 13:28 Dose: Not Given Aspirin (Aspirin Chewable) 81 mg PO DAILY [facility] Last Admin: 07/21/17 12:06 Dose: 81 mg Carvedilol (Coreg) 3.125 mg PO BID [facility] Last Admin: 07/21/17 12:07 Dose: 3.125 mg Docusate Sodium (Colace) 100 mg PO BID [facility] Last Admin: 07/21/17 12:06 Dose: 100 mg Ferric Sodium Gluconate Complex (Ferrlecit) 125 mg IVPB DAILY [facility] Stop: 07/29/17 10:01 Last Admin: 07/21/17 12:11 Dose: 125 mg Furosemide (Lasix) 40 mg IVP BID [facility] Last Admin: 07/21/17 12:10 Dose: 40 mg Hydralazine HCl (Apresoline) 25 mg PO QID [facility] Last Admin: 07/21/17 13:24 Dose: Not Given Hydralazine HCl (Apresoline) 10 mg IVP Q6H PRN PRN Reason: Systolic Blood Pressure Last Admin: 07/20/17 11:39 Dose: 10 mg Dextrose/Sodium Chloride (Dextrose 5%-0.45% Ns 500 Ml) 500 mls @ 60 mls/hr IV .Q8H20M [facility] Insulin Human Regular (Novolin R) 0 unit SC [facility] PRN Reason: Protocol Last Admin: 07/21/17 13:25 Dose: 2 unit Lisinopril (Zestril) 40 mg PO DAILY [facility] Last Admin: 07/21/17 12:06 Dose: 40 mg Nitroglycerin (Nitro-Bid 2% Oint) 1 ea TOP Q6H PRN PRN Reason: Pain, severe (8-10) Ondansetron HCl (Zofran Inj) 4 mg IVP Q6 PRN PRN Reason: Nausea/Vomiting Rosuvastatin Calcium (Crestor) 10 mg PO [facility] Last Admin: 07/20/17 22:01 Dose: 10 mg Spironolactone (Aldactone) 25 mg PO BID [facility] Last Admin: 07/21/17 12:07 Dose: 25 mg Physical Exam - Head Exam Head Exam: ATRAUMATIC - Eye Exam Eye Exam: Normal appearance - ENT Exam ENT Exam: Mucous Membranes Dry - Respiratory Exam Respiratory Exam: NORMAL BREATHING PATTERN - Cardiovascular Exam Cardiovascular Exam: +S1, +S2 - GI/Abdominal Exam GI & Abdominal Exam: Normal Bowel Sounds Results - Vital Signs Recent Vital Signs: Last Vital Signs Temp 98 F 07/21/17 11:20 Pulse 81 07/21/17 12:02 Resp 20 07/21/17 11:20 BP 151/66 H 07/21/17 12:10 Pulse Ox 98 07/21/17 11:20 - Labs Result Diagrams: 07/21/17 08:38 07/21/17 08:38 Labs: Laboratory Results - last 24 hr 07/20/17 07/20/17 07/20/17 11:49 12:00 13:30 WBC RBC Hgb Hct MCV MCH MCHC RDW Plt Count MPV Neut % (Auto) Lymph % (Auto) Cassia % (Auto) Eos % (Auto) Baso % (Auto) Neut # Lymph # Cassia # Eos # Baso # Haptoglobin 187 PT INR APTT Sodium Potassium Chloride Carbon Dioxide Anion Gap BUN Creatinine Est GFR ( Amer) Est GFR (Non-Af Amer) POC Glucose (mg/dL) 147 H Random Glucose Calcium Total Bilirubin AST ALT Alkaline Phosphatase Total Creatine Kinase CK-MB (Mass) Troponin I, Quant 0.1840 H* Total Protein Albumin Globulin Albumin/Globulin Ratio 07/20/17 07/20/17 07/20/17 15:00 16:41 18:03 WBC RBC Hgb Hct MCV MCH MCHC RDW Plt Count MPV Neut % (Auto) Lymph % (Auto) Cassia % (Auto) Eos % (Auto) Baso % (Auto) Neut # Lymph # Cassia # Eos # Baso # Haptoglobin PT 11.6 INR 1.0 APTT 31 Sodium Potassium Chloride Carbon Dioxide Anion Gap BUN Creatinine Est GFR ( Amer) Est GFR (Non-Af Amer) POC Glucose (mg/dL) 316 H Random Glucose Calcium Total Bilirubin AST ALT Alkaline Phosphatase Total Creatine Kinase 51 CK-MB (Mass) 0.81 Troponin I, Quant 0.1960 H* Total Protein Albumin Globulin Albumin/Globulin Ratio 07/20/17 07/20/17 07/20/17 20:55 21:42 22:36 WBC RBC Hgb Hct MCV MCH MCHC RDW Plt Count MPV Neut % (Auto) Lymph % (Auto) Cassia % (Auto) Eos % (Auto) Baso % (Auto) Neut # Lymph # Cassia # Eos # Baso # Haptoglobin PT INR APTT Sodium Potassium Chloride Carbon Dioxide Anion Gap BUN Creatinine Est GFR ( Amer) Est GFR (Non-Af Amer) POC Glucose (mg/dL) 89 Random Glucose Calcium Total Bilirubin AST ALT Alkaline Phosphatase Total Creatine Kinase 46 45 CK-MB (Mass) 0.66 0.56 Troponin I, Quant 0.1560 H* 0.1670 H* Total Protein Albumin Globulin Albumin/Globulin Ratio 07/21/17 07/21/17 07/21/17 01:27 06:33 08:38 WBC 7.4 RBC 3.49 L Hgb 8.3 L Hct 26.0 L MCV 74.5 L MCH 23.8 L MCHC 31.9 L RDW 17.3 H Plt Count 217 MPV 8.8 Neut % (Auto) 60.3 Lymph % (Auto) 28.2 Cassia % (Auto) 8.7 Eos % (Auto) 2.1 Baso % (Auto) 0.7 Neut # 4.5 Lymph # 2.1 Cassia # 0.6 Eos # 0.2 Baso # 0.0 Haptoglobin PT INR APTT 40 H D Sodium Potassium Chloride Carbon Dioxide Anion Gap BUN Creatinine Est GFR ( Amer) Est GFR (Non-Af Amer) POC Glucose (mg/dL) 151 H Random Glucose Calcium Total Bilirubin AST ALT Alkaline Phosphatase Total Creatine Kinase CK-MB (Mass) Troponin I, Quant Total Protein Albumin Globulin Albumin/Globulin Ratio 07/21/17 07/21/17 08:38 11:24 WBC RBC Hgb Hct MCV MCH MCHC RDW Plt Count MPV Neut % (Auto) Lymph % (Auto) Cassia % (Auto) Eos % (Auto) Baso % (Auto) Neut # Lymph # Cassia # Eos # Baso # Haptoglobin PT INR APTT Sodium 135 Potassium 4.0 Chloride 103 Carbon Dioxide 23 Anion Gap 14 BUN 32 H Creatinine 1.5 H Est GFR ( Amer) 41 Est GFR (Non-Af Amer) 33 POC Glucose (mg/dL) 191 H Random Glucose 121 H Calcium 7.6 L Total Bilirubin 0.6 AST 21 ALT 24 Alkaline Phosphatase 89 Total Creatine Kinase CK-MB (Mass) Troponin I, Quant Total Protein 6.3 Albumin 3.5 Globulin 2.8 Albumin/Globulin Ratio 1.2 Assessment & Plan (1) Anemia Assessment and Plan: hypoproliferative erythroid response responding to IV iron element of anemia of CKD; will give Procrit will add monoclonal protein w/u hemoglobinopathy evaluation Thank you for this interesting consult. Status: Acute
[2017-07-21 22:20] LABS: RBC URINE 22 /hpf (0-3); URINE BACTERIA RARE (<OCC); URINE BILIRUBIN NEGATIVE (NEGATIVE); URINE BLOOD 1+ (NEGATIVE); URINE COLOR Yellow (YELLOW); URINE GLUCOSE (UA) NORMAL (Normal); URINE KETONE NEGATIVE (NEGATIVE); URINE LEUKOCYTE ESTERASE 3+ Leu/uL (Negative); URINE PROTEIN 1+ mg/dL (NEGATIVE); URINE UROBILINOGEN NORMAL mg/dL (0.2-1.0); WBC CLUMPS FEW /hpf; WBC URINE 1282 /hpf (0-5)
--- NOTE | 2017-07-21 22:23 | CARD ---
APPROVED REPORT EKG Measurement Heart [id number] <Conclusion> Normal sinus rhythm Left axis deviation Abnormal ECG
[2017-07-22] MEDS: Albuterol-Ipratrop 3 mg / 0.5 (3 ml) UD INH SCH ×4 (01:15→19:19)
[2017-07-22 07:46] LABS: BASO % 0.4 % (0.0-2.0); EOS # 0.1 K/uL (0.0-0.7); EOS % 1.7 % (0.0-4.0); HEMATOCRIT 25.1 % (34.0-47.0); LYMPH # 1.9 K/uL (1.0-4.3); LYMPH % 27.8 % (20.0-40.0); MEAN CELL VOLUME 75.1 fL (81.0-99.0); MEAN CORPUSCULAR HEMOGLOBIN 24.6 pg (27.0-31.0); MEAN CORPUSCULAR HGB CONC 32.7 g/dL (33.0-37.0); MEAN PLATELET VOLUME 8.3 fL (7.2-11.7); MONO # 0.9 K/uL (0.0-0.8); MONO % 13.3 % (0.0-10.0); NRBC % 0.1 % (0.0-2.0); RED CELL DISTRIBUTION WIDTH 17.4 % (11.5-14.5); WHITE BLOOD COUNT 6.7 K/uL (4.8-10.8)
[2017-07-22] MEDS: (Novolin R) Insulin Human Regular 100 units/ml vial SC SCH ×4 (08:06→22:14)
[2017-07-22 08:31] LABS: ALB/GLOB RATIO 1.2 (1.0-2.1); BILIRUBIN,TOTAL 0.6 mg/dL (0.2-1.3); CALCIUM 7.7 mg/dl (8.6-10.4); PHOSPHOROUS 5.6 mg/dL (2.5-4.5); POTASSIUM 3.9 mmol/L (3.6-5.2); TOTAL PROTEIN 6.3 g/dL (6.3-8.3)
[2017-07-22] MEDS: Ferric Sodium Gluconat Complex 62.5 mg/5 ml Vial IVPB SCH (10:53)
[2017-07-22] MEDS ORDERED: Bisacodyl 5mg EC Tab PO ONE (14:17)
--- NOTE | 2017-07-22 16:21 | CP.PCM.PN ---
"<Jaron Gilmore - Last Filed: 07/22/17 18:43> Subjective - Date & Time of Evaluation Date of Evaluation: 07/22/17 Time of Evaluation: 16:21 - Subjective Subjective: patient seen and examined doing much better with no complaints at this time Denies chest pain, fever, sob, N/V Objective - Vital Signs/Intake and Output Vital Signs (last 24 hours): Temp Pulse Resp BP Pulse Ox 98.2 F 73 20 132/64 98 07/22/17 15:49 07/22/17 15:49 07/22/17 15:49 07/22/17 15:49 07/22/17 15:49 Intake and Output: 07/22/17 07/22/17 06:59 18:59 Intake Total 500 Balance 500 - Medications Medications: Current Medications Acetaminophen (Tylenol 325mg Tab) 650 mg PO Q6 PRN PRN Reason: Pain, moderate (4-7) Last Admin: 07/22/17 12:38 Dose: 650 mg Albuterol/Ipratropium (Duoneb 3 Mg/0.5 Mg (3 Ml) Ud) 3 ml INH RQ6 [facility] Last Admin: 07/22/17 13:25 Dose: 3 ml Aspirin (Aspirin Chewable) 81 mg PO DAILY [facility] Last Admin: 07/22/17 10:52 Dose: 81 mg Carvedilol (Coreg) 6.25 mg PO BID [facility] Last Admin: 07/22/17 10:52 Dose: 6.25 mg Docusate Sodium (Colace) 100 mg PO BID [facility] Last Admin: 07/22/17 10:52 Dose: 100 mg Ferric Sodium Gluconate Complex (Ferrlecit) 125 mg IVPB DAILY [facility] Stop: 07/29/17 10:01 Last Admin: 07/22/17 10:53 Dose: 125 mg Furosemide (Lasix) 40 mg IVP BID [facility] Last Admin: 07/22/17 10:52 Dose: 40 mg Hydralazine HCl (Apresoline) 10 mg IVP Q6H PRN PRN Reason: Systolic Blood Pressure Last Admin: 07/20/17 11:39 Dose: 10 mg Hydralazine HCl (Apresoline) 50 mg PO Q8H [facility] Last Admin: 07/22/17 14:29 Dose: 50 mg Dextrose/Sodium Chloride (Dextrose 5%-0.45% Ns 500 Ml) 500 mls @ 60 mls/hr IV .Q8H20M [facility] Insulin Human Regular (Novolin R) 0 unit SC ACHS [facility] PRN Reason: Protocol Last Admin: 07/22/17 12:34 Dose: 4 unit Lisinopril (Zestril) 40 mg PO DAILY [facility] Last Admin: 07/22/17 10:52 Dose: 40 mg Nitroglycerin (Nitro-Bid 2% Oint) 1 ea TOP Q6H PRN PRN Reason: Pain, severe (8-10) Ondansetron HCl (Zofran Inj) 4 mg IVP Q6 PRN PRN Reason: Nausea/Vomiting Rosuvastatin Calcium (Crestor) 10 mg PO HS [facility] Last Admin: 07/21/17 22:03 Dose: 10 mg Spironolactone (Aldactone) 25 mg PO BID [facility] Last Admin: 07/22/17 10:52 Dose: 25 mg - Labs Labs: 07/22/17 07:39 07/22/17 07:39 PT 11.6 SECONDS (9.7-12.2) 07/20/17 18:03 INR 1.0 07/20/17 18:03 APTT 40 SECONDS (21-34) H D 07/21/17 01:27 - Additional Findings Additional findings: - Head Exam Head Exam: ATRAUMATIC, NORMAL INSPECTION, NORMOCEPHALIC - Eye Exam Eye Exam: EOMI, PERRL. absent: Scleral icterus Additional comments: light sensitivity b/l - ENT Exam ENT Exam: Mucous Membranes Moist - Respiratory Exam Respiratory Exam: Clear to Ausculation Bilateral, NORMAL BREATHING PATTERN. absent: Accessory Muscle Use, Rales, Rhonchi, Wheezes, Respiratory Distress - Cardiovascular Exam Cardiovascular Exam: RRR, +S1, +S2. absent: Tachycardia, Clicks, Diastolic murmur, Murmur - GI/Abdominal Exam GI & Abdominal Exam: Soft, Normal Bowel Sounds. absent: Tenderness - Extremities Exam Extremities Exam: Pedal Edema (trace and Improved ) - Neurological Exam Neurological Exam: Alert, Awake, Oriented x3 - Psychiatric Exam Psychiatric exam: Normal Affect, Normal Mood - Skin Skin Exam: Dry, Intact, Normal Color, Warm Assessment and Plan (1) Dyspnea on exertion Status: Acute (2) Leg pain Status: Acute (3) Hypertension Status: Acute (4) Diabetes Status: Chronic (5) UTI (urinary tract infection) Status: Acute (6) Prophylactic measure Status: Acute - Assessment and Plan (Free Text) Assessment: Dyspnea on exertion 2/2 to Diastolic CHF (Type II) Likely 2/2 to new onset CHF Cardio Consult - recs appreciated Echo - shows Grade II diastolic dysfunction. CXR - Moderate pulm venous congestion EUGENIA NEGATIVE x3 ||| EUGENIA (07/20/2017) Showed 0.184 inc. to 0.196 and began downtrending EKG (07/20/17) NSR. Repeat ordered. Lipid panel -WNL Stress Test (07/20/17) - Showed defect possibly representing ischemia Cardiac Cath (07/21/17) - Angiographically normal coronaries and normal LV systolic function Meds: * Lasix 40 IV BID * Crestor 10 PO HS * Aldactone 25 PO BID * Lisinopril 40 PO QD * Added Coreg 3.125 BID per Cardio * Added Duonebs per Cardio * Added Nitropaste per Cardio. 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 Consider switching back to Lasix 20 PO BID * Coreg 3.125 BID per Cardio * Hydralazine 25 PO QID [facility] * Added Nitropaste Diabetes HgBA1c = 7.4 ISS High Accuchecks UTI (urinary tract infection) First UA contaminated Repeat UA shows trace Leuk Es. Urine Culture-Collected and Pending Patient is asymptomatic. We will wait for urine culture sensitivities. Constipation dulcolax 5mg once Prophylactic measure Heparin Colace Ambulate Zofran Dispo: Ok to D/C tomorrow if creatinine trending down <Kate Weems V - Last Filed: 07/24/17 21:37> Objective - Vital Signs/Intake and Output Vital Signs (last 24 hours): Temp Pulse Resp BP Pulse Ox 98.1 F 69 20 166/76 H 96 07/24/17 18:02 07/24/17 18:02 07/24/17 18:02 07/24/17 18:02 07/24/17 18:02 Intake and Output: 07/24/17 07/25/17 18:59 06:59 Intake Total 1050 Balance 1050 - Medications Medications: Current Medications Acetaminophen (Tylenol 325mg Tab) 650 mg PO Q6 PRN PRN Reason: Pain, moderate (4-7) Last Admin: 07/22/17 12:38 Dose: 650 mg Albuterol/Ipratropium (Duoneb 3 Mg/0.5 Mg (3 Ml) Ud) 3 ml INH RQ6 [facility] Last Admin: 07/24/17 19:38 Dose: Not Given Aspirin (Aspirin Chewable) 81 mg PO DAILY [facility] Last Admin: 07/24/17 10:30 Dose: 81 mg Carvedilol (Coreg) 6.25 mg PO BID [facility] Last Admin: 07/24/17 17:57 Dose: 6.25 mg Docusate Sodium (Colace) 100 mg PO BID [facility] Last Admin: 07/24/17 17:58 Dose: 100 mg Ferric Sodium Gluconate Complex (Ferrlecit) 125 mg IVPB DAILY [facility] Stop: 07/29/17 10:01 Last Admin: 07/24/17 11:00 Dose: 125 mg Furosemide (Lasix) 40 mg IVP BID [facility] Last Admin: 07/23/17 10:42 Dose: Not Given Gabapentin (Neurontin) 100 mg PO TID [facility] Last Admin: 07/24/17 17:58 Dose: 100 mg Heparin Sodium (Porcine) (Heparin) 5,000 units SC Q8 [facility] Last Admin: 07/24/17 21:08 Dose: 5,000 units Hydralazine HCl (Apresoline) 10 mg IVP Q6H PRN PRN Reason: Systolic Blood Pressure Last Admin: 07/20/17 11:39 Dose: 10 mg Hydralazine HCl (Apresoline) 100 mg PO Q8H [facility] Last Admin: 07/24/17 20:54 Dose: 100 mg Dextrose/Sodium Chloride (Dextrose 5%-0.45% Ns 500 Ml) 500 mls @ 80 mls/hr IV .Q6H15M [facility] Last Admin: 07/24/17 14:24 Dose: Not Given Azithromycin 500 mg/ Sodium (Chloride) 250 mls @ 250 mls/hr IVPB DAILY [facility] Last Admin: 07/24/17 20:54 Dose: 250 mls/hr Piperacillin Sod/Tazobactam Sod (Zosyn 2.25 Gm Iv Premix) 2.25 gm in 50 mls @ 100 mls/hr IVPB Q8H [facility] Last Admin: 07/24/17 17:58 Dose: 100 mls/hr Insulin Human Regular (Novolin R) 0 unit SC ACHS [facility] PRN Reason: Protocol Last Admin: 07/24/17 21:13 Dose: Not Given Lisinopril (Zestril) 40 mg PO DAILY [facility] Last Admin: 07/23/17 10:43 Dose: Not Given Nitroglycerin (Nitro-Bid 2% Oint) 1 ea TOP Q6H PRN PRN Reason: Pain, severe (8-10) Ondansetron HCl (Zofran Inj) 4 mg IVP Q6 PRN PRN Reason: Nausea/Vomiting Promethazine HCl/Codeine (Phenergan/Codeine Oral Syrup) 5 ml PO Q4 PRN PRN Reason: Cough Rosuvastatin Calcium (Crestor) 10 mg PO HS [facility] Last Admin: 07/24/17 21:08 Dose: 10 mg Spironolactone (Aldactone) 25 mg PO BID [facility] Last Admin: 07/23/17 10:42 Dose: Not Given - Labs Labs: 07/24/17 09:22 07/24/17 09:22 PT 11.6 SECONDS (9.7-12.2) 07/20/17 18:03 INR 1.0 07/20/17 18:03 APTT 40 SECONDS (21-34) H D 07/21/17 01:27 Attending/Attestation - Attestation I have personally seen and examined this patient.: Yes I have fully participated in the care of the patient.: Yes I have reviewed all pertinent clinical information, including history, physical exam and plan: Yes Notes (Text): This is late computer entry for 07/22/17. Patient seen, examined, and case discussed with day-time resident. Patient seen this afternoon. Patient seen lying comfortable in bed. patient denies acute complaints except for leg pains. Pending official report for doppler study completed 07/17/17. Pending urine culture repeat patient is on gentle IV hydration will slight rise in Creatinine. Will continue to monitor BUN/Cr in light of recent cath; Assessment/Plan 1) Dyspnea on exertion 2/2 to Diastolic CHF (Type II) * Likely 2/2 to new onset CHF * Cardio Dr. Pearl Consult - recs appreciated * Echo - shows Grade II diastolic dysfunction. * CXR - Moderate pulm venous congestion * EUGENIA NEGATIVE x3 * EKG (07/20/17) NSR. * Lipid panel -WNL * Stress Test (07/20/17) - Showed defect possibly representing ischemia * Cardiac Cath (07/21/17) - Angiographically normal coronaries and normal LV systolic function Meds: * Lasix 40mg IV BID * Crestor 10mg PO HS * Aldactone 25mg PO BID * Lisinopril 40 PO QD * Added Coreg 6.25mg BID per Cardio * Added Duonebs per Cardio * Added Nitropaste per Cardio. 2) JACQUES * D5-1/2NS 60cc/hr 07/23/17 * Monitor BUN/Cr in light of recent cardiac cath 3) Microcytic Anemia * Ferrous Sulfate 325 BID * Hematology consult - Dr. 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 not identified in pelvis US 5) Leg pain * Venous doppler - NEGATIVE for DVT on prelim-->Pending radiology read 6) Hypertension Meds: * Lisinopril 40mg PO QDaily * Lasix 40mg IV BID * Coreg 6.25mg BID per Cardio * Hydralazine 50 PO TID [facility] * Added Nitropaste 7) Diabetes * HgBA1c = 7.4 * ISS High * Accuchecks QAC and HS 8) Constipation * Resolved 9) Prophylactic measure * Heparin 5000U SC Q8H * Colace 100mg PO BID * Ambulate * Zofran 4mg IVP Q6 PRN nausea Disposition: monitor BUN/Cr in light of recent cardiac cath, if improves then will discharge tomorrow"
[2017-07-23 03:50] LABS: HEMATOCRIT 25.6 % (35.0-45.0); HEMOGLOBIN 8.1 g/dL (11.7-15.5); RDW 18.2 % (11.0-15.0)
[2017-07-23 04:05] LABS: TOTAL PROTEIN, SERUM 6.4 g/dL (6.1-8.1)
[2017-07-23] MEDS: (Novolin R) Insulin Human Regular 100 units/ml vial SC SCH ×4 (08:04→22:51)
[2017-07-23 08:49] LABS: BASO % 0.4 % (0.0-2.0); EOS # 0.2 K/uL (0.0-0.7); EOS % 2.1 % (0.0-4.0); HEMATOCRIT 26.2 % (34.0-47.0); LYMPH # 2.1 K/uL (1.0-4.3); LYMPH % 23.9 % (20.0-40.0); MEAN CELL VOLUME 75.8 fL (81.0-99.0); MEAN CORPUSCULAR HEMOGLOBIN 24.3 pg (27.0-31.0); MEAN PLATELET VOLUME 8.5 fL (7.2-11.7); MONO # 1.1 K/uL (0.0-0.8); MONO % 12.7 % (0.0-10.0); RED CELL DISTRIBUTION WIDTH 17.6 % (11.5-14.5); WHITE BLOOD COUNT 8.8 K/uL (4.8-10.8)
[2017-07-23 09:08] LABS: ALB/GLOB RATIO 0.9 (1.0-2.1); BILIRUBIN,TOTAL 0.3 mg/dL (0.2-1.3); CALCIUM 7.5 mg/dl (8.6-10.4); TOTAL PROTEIN 7.5 g/dL (6.3-8.3)
[2017-07-23] MEDS: Albuterol-Ipratrop 3 mg / 0.5 (3 ml) UD INH SCH ×3 (09:55→19:19)
[2017-07-23] MEDS: Ferric Sodium Gluconat Complex 62.5 mg/5 ml Vial IVPB SCH (10:51)
--- NOTE | 2017-07-23 11:39 | CP.PCM.PN ---
"<Angely Gillis H - Last Filed: 07/23/17 12:01> Subjective - Date & Time of Evaluation Date of Evaluation: 07/23/17 Time of Evaluation: 08:30 - Subjective Subjective: PGY3 Medicine Note - Dr. Drake's service: Patient seen and examined at bedside this AM. Patient had diarrhea one time this morning. Patient denies fever, chills, chest pain, SOB, abdominal pain, nausea, vomiting. Patient reports 2 years of blurry vision. Objective - Vital Signs/Intake and Output Vital Signs (last 24 hours): Temp Pulse Resp BP Pulse Ox 98.1 F 67 18 184/74 H 96 07/23/17 07:15 07/23/17 10:50 07/23/17 07:15 07/23/17 10:50 07/23/17 07:15 Intake and Output: 07/23/17 07/23/17 06:59 18:59 Intake Total 720 Balance 720 - Medications Medications: Current Medications Acetaminophen (Tylenol 325mg Tab) 650 mg PO Q6 PRN PRN Reason: Pain, moderate (4-7) Last Admin: 07/22/17 12:38 Dose: 650 mg Albuterol/Ipratropium (Duoneb 3 Mg/0.5 Mg (3 Ml) Ud) 3 ml INH RQ6 [facility] Last Admin: 07/23/17 09:55 Dose: Not Given Aspirin (Aspirin Chewable) 81 mg PO DAILY [facility] Last Admin: 07/23/17 10:52 Dose: 81 mg Carvedilol (Coreg) 6.25 mg PO BID [facility] Last Admin: 07/23/17 10:53 Dose: 6.25 mg Docusate Sodium (Colace) 100 mg PO BID [facility] Last Admin: 07/23/17 10:53 Dose: 100 mg Ferric Sodium Gluconate Complex (Ferrlecit) 125 mg IVPB DAILY [facility] Stop: 07/29/17 10:01 Last Admin: 07/23/17 10:51 Dose: 125 mg Furosemide (Lasix) 40 mg IVP BID [facility] Last Admin: 07/23/17 10:42 Dose: Not Given Hydralazine HCl (Apresoline) 10 mg IVP Q6H PRN PRN Reason: Systolic Blood Pressure Last Admin: 07/20/17 11:39 Dose: 10 mg Hydralazine HCl (Apresoline) 50 mg PO Q8H [facility] Last Admin: 07/23/17 06:03 Dose: 50 mg Ceftriaxone Sodium 1 gm/ (Sodium Chloride) 100 mls @ 100 mls/hr IVPB DAILY [facility] Dextrose/Sodium Chloride (Dextrose 5%-0.45% Ns 500 Ml) 500 mls @ 80 mls/hr IV .Q6H15M [facility] Insulin Human Regular (Novolin R) 0 unit SC ACHS [facility] PRN Reason: Protocol Last Admin: 07/23/17 08:04 Dose: 2 unit Lisinopril (Zestril) 40 mg PO DAILY [facility] Last Admin: 07/23/17 10:43 Dose: Not Given Nitroglycerin (Nitro-Bid 2% Oint) 1 ea TOP Q6H PRN PRN Reason: Pain, severe (8-10) Ondansetron HCl (Zofran Inj) 4 mg IVP Q6 PRN PRN Reason: Nausea/Vomiting Rosuvastatin Calcium (Crestor) 10 mg PO HS [facility] Last Admin: 07/22/17 22:13 Dose: 10 mg Spironolactone (Aldactone) 25 mg PO BID [facility] Last Admin: 07/23/17 10:42 Dose: Not Given - Labs Labs: 07/23/17 08:41 07/23/17 08:41 PT 11.6 SECONDS (9.7-12.2) 07/20/17 18:03 INR 1.0 07/20/17 18:03 APTT 40 SECONDS (21-34) H D 07/21/17 01:27 - Constitutional Appears: Non-toxic, No Acute Distress - Head Exam Head Exam: NORMAL INSPECTION - Eye Exam Eye Exam: EOMI - ENT Exam ENT Exam: Mucous Membranes Moist - Respiratory Exam Respiratory Exam: Clear to Ausculation Bilateral, NORMAL BREATHING PATTERN. absent: Rales - Cardiovascular Exam Cardiovascular Exam: REGULAR RHYTHM, +S1, +S2. absent: Gallop, Rubs, Murmur - GI/Abdominal Exam GI & Abdominal Exam: Soft, Normal Bowel Sounds. absent: Tenderness - Extremities Exam Extremities Exam: absent: Pedal Edema - Neurological Exam Neurological Exam: Alert, Awake, Oriented x3 - Psychiatric Exam Psychiatric exam: Normal Affect, Normal Mood - Skin Skin Exam: Normal Color, Warm Assessment and Plan - Assessment and Plan (Free Text) Assessment: Dyspnea on exertion 2/2 to Diastolic CHF (Type II) Likely 2/2 to new onset CHF Cardio Consult - recs appreciated Echo - shows Grade II diastolic dysfunction. CXR - Moderate pulm venous congestion EUGENIA NEGATIVE x3 ||| EUGENIA (07/20/2017) Showed 0.184 inc. to 0.196 and began downtrending EKG (07/20/17) NSR. Repeat ordered. Lipid panel -WNL Stress Test (07/20/17) - Showed defect possibly representing ischemia Cardiac Cath (07/21/17) - Angiographically normal coronaries and normal LV systolic function F/U CXR Meds: * Lasix 40 IV BID on hold secondary to JACQUES * Crestor 10 PO HS * Aldactone 25 PO BID on hold secondary to JACQUES * Lisinopril 40 PO QD on hold secondary to JACQUES * Added Coreg 3.125 BID per Cardio * Added Duonebs per Cardio * Added Nitropaste per Cardio. JACQUES Likely secondary to medications and dye from cardiac cath Nephro consult - Dr. Aniya Najera - help appreciated Holding lisinopril, aldactone and lasix Increased D5-1/2NS to 80cc/hr F/U urine sodium, calcium, chloride, creatinine, osmolality F/U renal US F/U CXR to see if we can increase IVF Microcytic Anemia Ferous Sulfate 325 BID Stool occult blood positive Hematology consult - Dr. Sullivan - help appreciated GI consult - Dr. Negron - f/u recs Stool Occult Blood GI consult - Dr. 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 Consider switching back to Lasix 20 PO BID on hold secondary to JACQUES * Coreg 3.125 BID per Cardio * Hydralazine 25 PO QID [facility]--> increased to hydralazine 100mg PO TID * Added Nitropaste Diabetes HgBA1c = 7.4 ISS High Accuchecks UTI (urinary tract infection) First UA contaminated Repeat UA shows trace Leuk Es. Urine Culture- gram negative rods - f/u full results Rocephin 1gm IVPB daily (started 07/23/17) Patient is asymptomatic. We will wait for urine culture sensitivities. Constipation dulcolax 5mg once Miralax added Prophylactic measure Heparin 5000U SC Q8 Colace Ambulate Zofran <Yonathan Drakeshannondeepali - Last Filed: 07/23/17 14:17> Objective - Vital Signs/Intake and Output Vital Signs (last 24 hours): Temp Pulse Resp BP Pulse Ox 98.1 F 70 18 138/67 96 07/23/17 07:15 07/23/17 13:57 07/23/17 07:15 07/23/17 13:57 07/23/17 07:15 Intake and Output: 07/23/17 07/23/17 06:59 18:59 Intake Total 720 Balance 720 - Medications Medications: Current Medications Acetaminophen (Tylenol 325mg Tab) 650 mg PO Q6 PRN PRN Reason: Pain, moderate (4-7) Last Admin: 07/22/17 12:38 Dose: 650 mg Albuterol/Ipratropium (Duoneb 3 Mg/0.5 Mg (3 Ml) Ud) 3 ml INH RQ6 [facility] Last Admin: 07/23/17 13:56 Dose: 3 ml Aspirin (Aspirin Chewable) 81 mg PO DAILY [facility] Last Admin: 07/23/17 10:52 Dose: 81 mg Carvedilol (Coreg) 6.25 mg PO BID [facility] Last Admin: 07/23/17 10:53 Dose: 6.25 mg Docusate Sodium (Colace) 100 mg PO BID [facility] Last Admin: 07/23/17 10:53 Dose: 100 mg Ferric Sodium Gluconate Complex (Ferrlecit) 125 mg IVPB DAILY [facility] Stop: 07/29/17 10:01 Last Admin: 07/23/17 10:51 Dose: 125 mg Furosemide (Lasix) 40 mg IVP BID [facility] Last Admin: 07/23/17 10:42 Dose: Not Given Heparin Sodium (Porcine) (Heparin) 5,000 units SC Q8 [facility] Hydralazine HCl (Apresoline) 10 mg IVP Q6H PRN PRN Reason: Systolic Blood Pressure Last Admin: 07/20/17 11:39 Dose: 10 mg Hydralazine HCl (Apresoline) 100 mg PO Q8H [facility] Last Admin: 07/23/17 13:57 Dose: 100 mg Ceftriaxone Sodium (Rocephin Iv 1 Gm Duplex) 50 mls @ 100 mls/hr IVPB DAILY [facility] Last Admin: 07/23/17 13:58 Dose: 100 mls/hr Dextrose/Sodium Chloride (Dextrose 5%-0.45% Ns 500 Ml) 500 mls @ 80 mls/hr IV .Q6H15M [facility] Last Admin: 07/23/17 13:58 Dose: Not Given Insulin Human Regular (Novolin R) 0 unit SC ACHS [facility] PRN Reason: Protocol Last Admin: 07/23/17 12:29 Dose: 2 unit Lisinopril (Zestril) 40 mg PO DAILY [facility] Last Admin: 07/23/17 10:43 Dose: Not Given Nitroglycerin (Nitro-Bid 2% Oint) 1 ea TOP Q6H PRN PRN Reason: Pain, severe (8-10) Ondansetron HCl (Zofran Inj) 4 mg IVP Q6 PRN PRN Reason: Nausea/Vomiting Rosuvastatin Calcium (Crestor) 10 mg PO HS [facility] Last Admin: 07/22/17 22:13 Dose: 10 mg Spironolactone (Aldactone) 25 mg PO BID [facility] Last Admin: 07/23/17 10:42 Dose: Not Given - Labs Labs: 07/23/17 08:41 07/23/17 08:41 PT 11.6 SECONDS (9.7-12.2) 07/20/17 18:03 INR 1.0 07/20/17 18:03 APTT 40 SECONDS (21-34) H D 07/21/17 01:27 Attending/Attestation - Attestation I have personally seen and examined this patient.: Yes I have fully participated in the care of the patient.: Yes I have reviewed all pertinent clinical information, including history, physical exam and plan: Yes Notes (Text): Chart reviewed .Patient was seen and examined this morning.No complain,No dyspnea,no leg edema Her creatinine is up. 1.Acute on chronic renal failure CHF/diastolic,pulmonary edema was on diuretics s/p contrast Hold lasix,aldactone and lisinopril resident d/w workers compensation analyst who agreed to hold these meds,May increase hydralazine to control BP gentle hydration follow nephrology 2.S/P Dyspnea due to diastolic heart failure cath with normal coronaries aldactone,lasix and lisinopril held due to creatinine continue coreg and hydarlazine 3.ANEMIA Iron and monitor 4.Abdominal pain.better has diarrhea and stool OB possitive GI consult 5.HTN coreg and increase hydralazine as needed 6.Diabetes monitor sugar 7 Prophylactic measure Heparin Colace Ambulate Zofran"
--- NOTE | 2017-07-23 13:13 | US ---
Renal ultrasound History: Acute renal insufficiency. Comparison: None available. Technique: Real-time sonography was performed through the kidneys. Findings: Right kidney: 8.3 x 4.5 x 5.0 centimeters. Mild increased echogenicity of the renal parenchymal cortex suggestive for medical renal disease. No calculi or hydronephrosis. Left kidney: 9.9 x 4.8 x 4.9 centimeters. Mild increased echogenicity of the renal parenchymal cortex suggestive for medical renal disease. No calculi or hydronephrosis. Visualized aorta is preserved. Visualized urinary bladder is grossly preserved. Impression: Mild increased echogenicity of the bilateral renal parenchymal cortices suggestive for medical disease.
[2017-07-23] MEDS: cefTRIAXone IV 1 gm in Dextros 50 ML IVPB SCH (13:58)
--- NOTE | 2017-07-23 14:50 | CP.PCM.CON ---
History of Present Illness - History of Present Illness History of Present Illness: pt is seen and examined, full consult is dictated #[id number] 1. JACQUES can't r/o atn sec to contrast induced nephropathy check urinel ytes, osm, cr and calculate FENA 2. uti 3. chf 4. HTN 5.DM c/w iv fluids d51/2 ns at 80 ml/hr c/w iv abx daily bmp, follow up urine c/s Past Patient History - Infectious Disease Hx of Infectious Diseases: None - Past Medical History & Family History Past Medical History?: Yes - Past Social History Smoking Status: Never Smoked - CARDIAC Hx Cardiac Disorders: Yes Hx Hypercholesterolemia: Yes Hx Hypertension: Yes - PULMONARY Hx Respiratory Disorders: No - NEUROLOGICAL Hx Neurological Disorder: No - HEENT Hx HEENT Problems: No - RENAL Hx Chronic Kidney Disease: No - ENDOCRINE/METABOLIC Hx Endocrine Disorders: Yes Hx Diabetes Mellitus Type 2: Yes - HEMATOLOGICAL/ONCOLOGICAL Hx Blood Disorders: Yes Hx Anemia: Yes - INTEGUMENTARY Hx Dermatological Problems: No - MUSCULOSKELETAL/RHEUMATOLOGICAL Hx Musculoskeletal Disorders: No Hx Falls: No - GASTROINTESTINAL Hx Gastrointestinal Disorders: No - GENITOURINARY/GYNECOLOGICAL Hx Genitourinary Disorders: No - PSYCHIATRIC Hx Psychophysiologic Disorder: No Hx Substance Use: No - SURGICAL HISTORY Hx Surgeries: No - ANESTHESIA Hx Anesthesia: No Meds Allergies/Adverse Reactions: Allergies Allergy/AdvReac Type Severity Reaction Status Date / Time No Known Allergies Allergy Verified 07/17/17 12:52 - Medications Medications: Current Medications Acetaminophen (Tylenol 325mg Tab) 650 mg PO Q6 PRN PRN Reason: Pain, moderate (4-7) Last Admin: 07/22/17 12:38 Dose: 650 mg Albuterol/Ipratropium (Duoneb 3 Mg/0.5 Mg (3 Ml) Ud) 3 ml INH RQ6 [facility] Last Admin: 07/23/17 13:56 Dose: 3 ml Aspirin (Aspirin Chewable) 81 mg PO DAILY [facility] Last Admin: 07/23/17 10:52 Dose: 81 mg Carvedilol (Coreg) 6.25 mg PO BID [facility] Last Admin: 07/23/17 10:53 Dose: 6.25 mg Docusate Sodium (Colace) 100 mg PO BID [facility] Last Admin: 07/23/17 10:53 Dose: 100 mg Ferric Sodium Gluconate Complex (Ferrlecit) 125 mg IVPB DAILY [facility] Stop: 07/29/17 10:01 Last Admin: 07/23/17 10:51 Dose: 125 mg Furosemide (Lasix) 40 mg IVP BID [facility] Last Admin: 07/23/17 10:42 Dose: Not Given Heparin Sodium (Porcine) (Heparin) 5,000 units SC Q8 [facility] Last Admin: 07/23/17 14:09 Dose: 5,000 units Hydralazine HCl (Apresoline) 10 mg IVP Q6H PRN PRN Reason: Systolic Blood Pressure Last Admin: 07/20/17 11:39 Dose: 10 mg Hydralazine HCl (Apresoline) 100 mg PO Q8H [facility] Last Admin: 07/23/17 13:57 Dose: 100 mg Ceftriaxone Sodium (Rocephin Iv 1 Gm Duplex) 50 mls @ 100 mls/hr IVPB DAILY [facility] Last Admin: 07/23/17 13:58 Dose: 100 mls/hr Dextrose/Sodium Chloride (Dextrose 5%-0.45% Ns 500 Ml) 500 mls @ 80 mls/hr IV .Q6H15M [facility] Last Admin: 07/23/17 13:58 Dose: Not Given Insulin Human Regular (Novolin R) 0 unit SC ACHS [facility] PRN Reason: Protocol Last Admin: 07/23/17 12:29 Dose: 2 unit Lisinopril (Zestril) 40 mg PO DAILY [facility] Last Admin: 07/23/17 10:43 Dose: Not Given Nitroglycerin (Nitro-Bid 2% Oint) 1 ea TOP Q6H PRN PRN Reason: Pain, severe (8-10) Ondansetron HCl (Zofran Inj) 4 mg IVP Q6 PRN PRN Reason: Nausea/Vomiting Rosuvastatin Calcium (Crestor) 10 mg PO HS [facility] Last Admin: 07/22/17 22:13 Dose: 10 mg Spironolactone (Aldactone) 25 mg PO BID [facility] Last Admin: 07/23/17 10:42 Dose: Not Given Results - Vital Signs Recent Vital Signs: Last Vital Signs Temp 98.1 F 07/23/17 07:15 Pulse 70 07/23/17 13:57 Resp 18 07/23/17 07:15 BP 138/67 07/23/17 13:57 Pulse Ox 96 07/23/17 07:15 - Labs Result Diagrams: 07/23/17 08:41 07/23/17 08:41 Labs: Laboratory Results - last 24 hr 07/22/17 07/22/17 07/22/17 07:39 07:39 16:24 WBC RBC Hgb Hct MCV MCH MCHC RDW Plt Count MPV Neut % (Auto) Lymph % (Auto) Amelia % (Auto) Eos % (Auto) Baso % (Auto) Neut # Lymph # Amelia # Eos # Baso # Hemoglobinopathy Red Blood Count 3.33 L Hemoglobinopathy Hct 25.6 L Hemoglobinopathy Hgb 8.1 L Hemoglobinopathy MCV 76.8 L Hemoglobinopathy MCH 24.2 L Hemoglobinopathy RDW 18.2 H Sodium Potassium Chloride Carbon Dioxide Anion Gap BUN Creatinine Est GFR ( Amer) Est GFR (Non-Af Amer) POC Glucose (mg/dL) 146 H Random Glucose Serum Osmolality Calcium Total Bilirubin AST ALT Alkaline Phosphatase Total Protein Total Protein (PEP) 6.4 Albumin Globulin Albumin/Globulin Ratio Stool Occult Blood 07/22/17 07/23/17 07/23/17 21:26 06:47 07:27 WBC RBC Hgb Hct MCV MCH MCHC RDW Plt Count MPV Neut % (Auto) Lymph % (Auto) Amelia % (Auto) Eos % (Auto) Baso % (Auto) Neut # Lymph # Amelia # Eos # Baso # Hemoglobinopathy Red Blood Count Hemoglobinopathy Hct Hemoglobinopathy Hgb Hemoglobinopathy MCV Hemoglobinopathy MCH Hemoglobinopathy RDW Sodium Potassium Chloride Carbon Dioxide Anion Gap BUN Creatinine Est GFR ( Amer) Est GFR (Non-Af Amer) POC Glucose (mg/dL) 230 H 182 H Random Glucose Serum Osmolality Calcium Total Bilirubin AST ALT Alkaline Phosphatase Total Protein Total Protein (PEP) Albumin Globulin Albumin/Globulin Ratio Stool Occult Blood Positive H 07/23/17 07/23/17 07/23/17 08:41 08:41 11:33 WBC 8.8 RBC 3.45 L Hgb 8.4 L Hct 26.2 L MCV 75.8 L MCH 24.3 L MCHC 32.0 L RDW 17.6 H Plt Count 208 MPV 8.5 Neut % (Auto) 60.9 Lymph % (Auto) 23.9 Amelia % (Auto) 12.7 H Eos % (Auto) 2.1 Baso % (Auto) 0.4 Neut # 5.3 Lymph # 2.1 Amelia # 1.1 H Eos # 0.2 Baso # 0.0 Hemoglobinopathy Red Blood Count Hemoglobinopathy Hct Hemoglobinopathy Hgb Hemoglobinopathy MCV Hemoglobinopathy MCH Hemoglobinopathy RDW Sodium 131 L Potassium 4.0 Chloride 101 Carbon Dioxide 20 L Anion Gap 15 BUN 37 H Creatinine 2.2 H Est GFR ( Amer) 26 Est GFR (Non-Af Amer) 22 POC Glucose (mg/dL) 166 H Random Glucose 221 H Serum Osmolality Calcium 7.5 L Total Bilirubin 0.3 AST 17 ALT 29 Alkaline Phosphatase 93 Total Protein 7.5 Total Protein (PEP) Albumin 3.5 Globulin 3.9 Albumin/Globulin Ratio 0.9 L Stool Occult Blood 07/23/17 14:00 WBC RBC Hgb Hct MCV MCH MCHC RDW Plt Count MPV Neut % (Auto) Lymph % (Auto) Amelia % (Auto) Eos % (Auto) Baso % (Auto) Neut # Lymph # Amelia # Eos # Baso # Hemoglobinopathy Red Blood Count Hemoglobinopathy Hct Hemoglobinopathy Hgb Hemoglobinopathy MCV Hemoglobinopathy MCH Hemoglobinopathy RDW Sodium Potassium Chloride Carbon Dioxide Anion Gap BUN Creatinine Est GFR ( Amer) Est GFR (Non-Af Amer) POC Glucose (mg/dL) Random Glucose Serum Osmolality 302 H Calcium Total Bilirubin AST ALT Alkaline Phosphatase Total Protein Total Protein (PEP) Albumin Globulin Albumin/Globulin Ratio Stool Occult Blood
--- NOTE | 2017-07-23 21:28 | CP.PCM.PN ---
Subjective - Date & Time of Evaluation Date of Evaluation: 07/23/17 Time of Evaluation: 17:35 - Subjective Subjective: Feels slightly better Objective - Vital Signs/Intake and Output Vital Signs (last 24 hours): Temp Pulse Resp BP Pulse Ox 97.8 F 78 20 164/72 H 97 07/23/17 15:00 07/23/17 18:00 07/23/17 15:00 07/23/17 15:00 07/23/17 15:00 Intake and Output: 07/23/17 07/24/17 18:59 06:59 Intake Total 650 Balance 650 - Medications Medications: Current Medications Acetaminophen (Tylenol 325mg Tab) 650 mg PO Q6 PRN PRN Reason: Pain, moderate (4-7) Last Admin: 07/22/17 12:38 Dose: 650 mg Albuterol/Ipratropium (Duoneb 3 Mg/0.5 Mg (3 Ml) Ud) 3 ml INH RQ6 [facility] Last Admin: 07/23/17 19:19 Dose: 3 ml Aspirin (Aspirin Chewable) 81 mg PO DAILY [facility] Last Admin: 07/23/17 10:52 Dose: 81 mg Carvedilol (Coreg) 6.25 mg PO BID [facility] Last Admin: 07/23/17 17:57 Dose: 6.25 mg Docusate Sodium (Colace) 100 mg PO BID [facility] Last Admin: 07/23/17 17:57 Dose: 100 mg Ferric Sodium Gluconate Complex (Ferrlecit) 125 mg IVPB DAILY [facility] Stop: 07/29/17 10:01 Last Admin: 07/23/17 10:51 Dose: 125 mg Furosemide (Lasix) 40 mg IVP BID [facility] Last Admin: 07/23/17 10:42 Dose: Not Given Heparin Sodium (Porcine) (Heparin) 5,000 units SC Q8 [facility] Last Admin: 07/23/17 14:09 Dose: 5,000 units Hydralazine HCl (Apresoline) 10 mg IVP Q6H PRN PRN Reason: Systolic Blood Pressure Last Admin: 07/20/17 11:39 Dose: 10 mg Hydralazine HCl (Apresoline) 100 mg PO Q8H [facility] Last Admin: 07/23/17 13:57 Dose: 100 mg Ceftriaxone Sodium (Rocephin Iv 1 Gm Duplex) 50 mls @ 100 mls/hr IVPB DAILY [facility] Last Admin: 07/23/17 13:58 Dose: 100 mls/hr Dextrose/Sodium Chloride (Dextrose 5%-0.45% Ns 500 Ml) 500 mls @ 80 mls/hr IV .Q6H15M [facility] Last Admin: 07/23/17 13:58 Dose: Not Given Insulin Human Regular (Novolin R) 0 unit SC ACHS [facility] PRN Reason: Protocol Last Admin: 07/23/17 17:57 Dose: 4 unit Lisinopril (Zestril) 40 mg PO DAILY [facility] Last Admin: 07/23/17 10:43 Dose: Not Given Nitroglycerin (Nitro-Bid 2% Oint) 1 ea TOP Q6H PRN PRN Reason: Pain, severe (8-10) Ondansetron HCl (Zofran Inj) 4 mg IVP Q6 PRN PRN Reason: Nausea/Vomiting Rosuvastatin Calcium (Crestor) 10 mg PO HS [facility] Last Admin: 07/22/17 22:13 Dose: 10 mg Spironolactone (Aldactone) 25 mg PO BID [facility] Last Admin: 07/23/17 10:42 Dose: Not Given - Labs Labs: 07/23/17 08:41 07/23/17 08:41 PT 11.6 SECONDS (9.7-12.2) 07/20/17 18:03 INR 1.0 07/20/17 18:03 APTT 40 SECONDS (21-34) H D 07/21/17 01:27 - Head Exam Head Exam: ATRAUMATIC - Eye Exam Eye Exam: Normal appearance - ENT Exam ENT Exam: Mucous Membranes Dry - Respiratory Exam Respiratory Exam: NORMAL BREATHING PATTERN - Cardiovascular Exam Cardiovascular Exam: +S1, +S2 - GI/Abdominal Exam GI & Abdominal Exam: Normal Bowel Sounds Assessment and Plan (1) Anemia Assessment & Plan: hypoproliferative erythroid response responding to IV iron element of anemia of CKD; s/p Procrit monoclonal protein w/u sent hemoglobinopathy evaluation sent Status: Acute
[2017-07-23 23:40] LABS: CREATININE, RANDOM URINE 65.6 mg/dL
[2017-07-24] MEDS: Albuterol-Ipratrop 3 mg / 0.5 (3 ml) UD INH SCH ×4 (01:26→19:38)
[2017-07-24] MEDS: (Novolin R) Insulin Human Regular 100 units/ml vial SC SCH ×4 (08:23→21:13)
--- NOTE | 2017-07-24 08:49 | CP.PCM.PN ---
"<Angely Gillis - Last Filed: 07/24/17 08:40> Subjective - Date & Time of Evaluation Date of Evaluation: 07/24/17 Time of Evaluation: 08:05 - Subjective Subjective: PGY3 Medicine Note - Dr. Weems's service: Patient seen and examined at bedside this AM. Patient reports body aches, nausea and SOB. Patient says she did not feel this badly yesterday. Patient deneis fever, chills, chest pain, vomiting, diarrhea today. Objective - Vital Signs/Intake and Output Vital Signs (last 24 hours): Temp Pulse Resp BP Pulse Ox 98.3 F 74 20 120/56 L 98 07/24/17 04:36 07/24/17 04:36 07/24/17 04:36 07/24/17 04:36 07/24/17 04:36 Intake and Output: 07/24/17 07/24/17 06:59 18:59 Intake Total 640 Balance 640 - Medications Medications: Current Medications Acetaminophen (Tylenol 325mg Tab) 650 mg PO Q6 PRN PRN Reason: Pain, moderate (4-7) Last Admin: 07/22/17 12:38 Dose: 650 mg Albuterol/Ipratropium (Duoneb 3 Mg/0.5 Mg (3 Ml) Ud) 3 ml INH RQ6 [facility] Last Admin: 07/24/17 07:30 Dose: 3 ml Aspirin (Aspirin Chewable) 81 mg PO DAILY [facility] Last Admin: 07/23/17 10:52 Dose: 81 mg Carvedilol (Coreg) 6.25 mg PO BID [facility] Last Admin: 07/23/17 17:57 Dose: 6.25 mg Docusate Sodium (Colace) 100 mg PO BID [facility] Last Admin: 07/23/17 17:57 Dose: 100 mg Ferric Sodium Gluconate Complex (Ferrlecit) 125 mg IVPB DAILY [facility] Stop: 07/29/17 10:01 Last Admin: 07/23/17 10:51 Dose: 125 mg Furosemide (Lasix) 40 mg IVP BID [facility] Last Admin: 07/23/17 10:42 Dose: Not Given Heparin Sodium (Porcine) (Heparin) 5,000 units SC Q8 [facility] Last Admin: 07/24/17 05:26 Dose: 5,000 units Hydralazine HCl (Apresoline) 10 mg IVP Q6H PRN PRN Reason: Systolic Blood Pressure Last Admin: 07/20/17 11:39 Dose: 10 mg Hydralazine HCl (Apresoline) 100 mg PO Q8H [facility] Last Admin: 07/24/17 04:28 Dose: 100 mg Ceftriaxone Sodium (Rocephin Iv 1 Gm Duplex) 50 mls @ 100 mls/hr IVPB DAILY [facility] Last Admin: 07/23/17 13:58 Dose: 100 mls/hr Dextrose/Sodium Chloride (Dextrose 5%-0.45% Ns 500 Ml) 500 mls @ 80 mls/hr IV .Q6H15M [facility] Last Admin: 07/24/17 02:30 Dose: 80 mls/hr Insulin Human Regular (Novolin R) 0 unit SC ACHS [facility] PRN Reason: Protocol Last Admin: 07/24/17 08:23 Dose: 4 unit Lisinopril (Zestril) 40 mg PO DAILY [facility] Last Admin: 07/23/17 10:43 Dose: Not Given Nitroglycerin (Nitro-Bid 2% Oint) 1 ea TOP Q6H PRN PRN Reason: Pain, severe (8-10) Ondansetron HCl (Zofran Inj) 4 mg IVP Q6 PRN PRN Reason: Nausea/Vomiting Rosuvastatin Calcium (Crestor) 10 mg PO HS [facility] Last Admin: 07/23/17 22:35 Dose: 10 mg Spironolactone (Aldactone) 25 mg PO BID [facility] Last Admin: 07/23/17 10:42 Dose: Not Given - Labs Labs: 07/23/17 08:41 07/23/17 08:41 PT 11.6 SECONDS (9.7-12.2) 07/20/17 18:03 INR 1.0 07/20/17 18:03 APTT 40 SECONDS (21-34) H D 07/21/17 01:27 - Constitutional Appears: Non-toxic, No Acute Distress, Unkempt - Head Exam Head Exam: NORMAL INSPECTION - Eye Exam Eye Exam: EOMI - ENT Exam ENT Exam: Mucous Membranes Moist - Respiratory Exam Respiratory Exam: Decreased Breath Sounds, Clear to Ausculation Bilateral, NORMAL BREATHING PATTERN. absent: Accessory Muscle Use, Rales, Rhonchi, Wheezes , Respiratory Distress - Cardiovascular Exam Cardiovascular Exam: REGULAR RHYTHM, +S1, +S2. absent: Gallop, Rubs, Murmur - GI/Abdominal Exam GI & Abdominal Exam: Soft, Normal Bowel Sounds. absent: Tenderness - Extremities Exam Extremities Exam: Tenderness. absent: Pedal Edema - Back Exam Back Exam: paraspinal tenderness - Neurological Exam Neurological Exam: Alert, Awake, Oriented x3 - Psychiatric Exam Psychiatric exam: Depressed - Skin Skin Exam: Normal Color, Warm Assessment and Plan - Assessment and Plan (Free Text) Assessment: Dyspnea on exertion 2/2 to Diastolic CHF (Type II) Likely 2/2 to new onset CHF Cardio Consult - recs appreciated Echo - shows Grade II diastolic dysfunction. CXR - Moderate pulm venous congestion EUGENIA NEGATIVE x3 ||| EUGENIA (07/20/2017) Showed 0.184 inc. to 0.196 and began downtrending EKG (07/20/17) NSR. Repeat ordered. Lipid panel -WNL Stress Test (07/20/17) - Showed defect possibly representing ischemia Cardiac Cath (07/21/17) - Angiographically normal coronaries and normal LV systolic function F/U CXR Meds: * Lasix 40 IV BID on hold secondary to JACQUES * Crestor 10 PO HS * Aldactone 25 PO BID on hold secondary to JACQUES * Lisinopril 40 PO QD on hold secondary to JACQUES * Added Coreg 3.125 BID per Cardio * Added Duonebs per Cardio * Added Nitropaste per Cardio. JACQUES Likely secondary to medications and dye from cardiac cath Nephro consult - Dr. Aniya Najera - help appreciated Increased D5-1/2NS to 80cc/hr from 60cc/hr 07/23/17 urine sodium 32, urine osmolality 241(low), urine creatinine 65.6 Serum osmolality 302 Renal US 07/23 - mild increased echogenicity of the bilateral renal parenchymal cortices suggestive for medical renal disease (please see full report) F/U urine calcium, chloride F/U CXR to see if we can increase IVF Holding lisinopril, aldactone and lasix until 07/25/17 to assess affect on creatinine UTI (urinary tract infection) First UA contaminated Repeat UA shows trace Leuk Es. Urine Culture- E.Coli sensitive to all antibiotics tested Rocephin 1gm IVPB daily (started 07/23/17) Microcytic Anemia Ferous Sulfate 325 BID Stool occult blood positive Hematology consult - Dr. Sullivan - help appreciated GI consult - Dr. Negron - help appreciated Stool Occult Blood GI consult - Dr. Negron - help appreciated CEA 2.2 F/U barium enema - will do if creatinine decreases F/U stool for C diff, stool culture, leukocytes, ova and parasites F/U CA125 F/U Ca 19-9 Abdominal Pain (Resolved) likely 2/2 to constipation TV US showed fibroids but did not identify IUD Outpatient [employer] follow for possible IUD and uterine fibroids Leg pain Venous doppler - NEGATIVE for DVT Gabapentin 100mg PO TID Hypertension Meds: * Lisinopril 40mg PO QD on hold secondary to JACQUES * Lasix 40 IV BID. Consider switching back to Lasix 20 PO BID on hold secondary to JACQUES * Coreg 3.125 BID per Cardio * Hydralazine 25 PO QID [facility]--> increased to hydralazine 100mg PO TID * Added Nitropaste Diabetes HgBA1c = 7.4 ISS High Accuchecks Constipation dulcolax 5mg once Resolved Prophylactic measure Heparin 5000U SC Q8 Col[facility] 100mg PO BID [facility] Zofran 4mg IVP Q6 PRN <Kate Weems V - Last Filed: 07/24/17 15:51> Objective - Vital Signs/Intake and Output Vital Signs (last 24 hours): Temp Pulse Resp BP Pulse Ox 98.1 F 74 18 155/72 H 97 07/24/17 09:41 07/24/17 13:25 07/24/17 09:41 07/24/17 13:25 07/24/17 09:41 Intake and Output: 07/24/17 07/24/17 06:59 18:59 Intake Total 640 1050 Balance 640 1050 - Medications Medications: Current Medications Acetaminophen (Tylenol 325mg Tab) 650 mg PO Q6 PRN PRN Reason: Pain, moderate (4-7) Last Admin: 07/22/17 12:38 Dose: 650 mg Albuterol/Ipratropium (Duoneb 3 Mg/0.5 Mg (3 Ml) Ud) 3 ml INH RQ6 [facility] Last Admin: 07/24/17 13:25 Dose: 3 ml Aspirin (Aspirin Chewable) 81 mg PO DAILY [facility] Last Admin: 07/24/17 10:30 Dose: 81 mg Carvedilol (Coreg) 6.25 mg PO BID [facility] Last Admin: 07/24/17 10:30 Dose: 6.25 mg Docusate Sodium (Colace) 100 mg PO BID [facility] Last Admin: 07/24/17 10:30 Dose: 100 mg Ferric Sodium Gluconate Complex (Ferrlecit) 125 mg IVPB DAILY [facility] Stop: 07/29/17 10:01 Last Admin: 07/24/17 11:00 Dose: 125 mg Furosemide (Lasix) 40 mg IVP BID [facility] Last Admin: 07/23/17 10:42 Dose: Not Given Gabapentin (Neurontin) 100 mg PO TID [facility] Last Admin: 07/24/17 13:39 Dose: 100 mg Heparin Sodium (Porcine) (Heparin) 5,000 units SC Q8 [facility] Last Admin: 07/24/17 13:36 Dose: 5,000 units Hydralazine HCl (Apresoline) 10 mg IVP Q6H PRN PRN Reason: Systolic Blood Pressure Last Admin: 07/20/17 11:39 Dose: 10 mg Hydralazine HCl (Apresoline) 100 mg PO Q8H [facility] Last Admin: 07/24/17 13:25 Dose: 100 mg Ceftriaxone Sodium (Rocephin Iv 1 Gm Duplex) 50 mls @ 100 mls/hr IVPB DAILY [facility] Last Admin: 07/24/17 10:25 Dose: 100 mls/hr Dextrose/Sodium Chloride (Dextrose 5%-0.45% Ns 500 Ml) 500 mls @ 80 mls/hr IV .Q6H15M [facility] Last Admin: 07/24/17 14:24 Dose: Not Given Insulin Human Regular (Novolin R) 0 unit SC ACHS [facility] PRN Reason: Protocol Last Admin: 07/24/17 13:03 Dose: 2 unit Lisinopril (Zestril) 40 mg PO DAILY [facility] Last Admin: 07/23/17 10:43 Dose: Not Given Nitroglycerin (Nitro-Bid 2% Oint) 1 ea TOP Q6H PRN PRN Reason: Pain, severe (8-10) Ondansetron HCl (Zofran Inj) 4 mg IVP Q6 PRN PRN Reason: Nausea/Vomiting Rosuvastatin Calcium (Crestor) 10 mg PO HS [facility] Last Admin: 07/23/17 22:35 Dose: 10 mg Spironolactone (Aldactone) 25 mg PO BID [facility] Last Admin: 07/23/17 10:42 Dose: Not Given - Labs Labs: 07/24/17 09:22 07/24/17 09:22 PT 11.6 SECONDS (9.7-12.2) 07/20/17 18:03 INR 1.0 07/20/17 18:03 APTT 40 SECONDS (21-34) H D 07/21/17 01:27 Attending/Attestation - Attestation I have personally seen and examined this patient.: Yes I have fully participated in the care of the patient.: Yes I have reviewed all pertinent clinical information, including history, physical exam and plan: Yes Notes (Text): Patient seen, examined, and case discussed with day-time resident. Assessment/Plan updated in the attending note Patient reports she denies fever, denies chills, reports she feels dizzy, denies chest pain, denies palpitations, denies abdominal pain, denies palpitations, denies nausea, denies vomitting, denies dysuria, reports frequency , denies hematuria, reports leg pains. Patient is on 2nd day of Rocephin 1 gram IV daily for E.coli UTI. Repeat UA and urine culture for tomorrow. Chest xray repeated today: shows mild venous congestion, right consolidation, left basiliar opacity. Will switch to renally dose Zosyn and Azithromycin. Order for serologies for strep pneumoniae, legionella, and mycoplasma IgM Start low dose gabapentin for neuropathic pain CA 125 elevated, hx of fibroids? placed for sole rougher consult. Cedric-inhibitor/lasix/aldactone held due to elevated Cr. Patient is on gentle IV hydration. Assessment/Plan 1) Dyspnea on exertion 2/2 to Diastolic CHF (Type II) * Likely 2/2 to new onset CHF * Cardio Dr. Pearl Consult - recs appreciated * Echo - shows Grade II diastolic dysfunction. * CXR - Moderate pulm venous congestion * CXR (07/24): moderate venous congestion, Right hilar prominence and consolidation. Mild patchy left basilar opacity, Trace left pleural effusion. tortuous ectatic aorta, cardiomegaly. * EUGENIA NEGATIVE x3 * EKG (07/20/17) NSR. * Lipid panel -WNL * Stress Test (07/20/17) - Showed defect possibly representing ischemia * Cardiac Cath (07/21/17) - Angiographically normal coronaries and normal LV systolic function Meds: * Lasix 40 IV BID on hold secondary to JACQUES on 07/23 * Crestor 10 PO HS * Aldactone 25 PO BID on hold secondary to JACQUES on 07/23 * Lisinopril 40 PO QD on hold secondary to JACQUES on 07/23 * Added Coreg 3.125 BID per Cardio * Added Duonebs per Cardio * Added Nitropaste per Cardio. 2) Pneumonia * CXR (07/24): moderate venous congestion, Right hilar prominence and consolidation. Mild patchy left basilar opacity, Trace left pleural effusion. tortuous ectatic aorta, cardiomegaly. * Start Renal dose Zosyn 2.25 IV Q 8 H and Azithromycin 500mg IV q daily * Duonebs PRN shortness of breath * Promethazine w codeine 5 ml PO Q 4H PRn cough * Order for Strep pneumonia urine, Legionella urine, and Mycoplasma IgM 3) Urinary Tract Infection * 07/18 contaminated * 07/21 E. Coli * Completed 2nd dose of Rocephin; changed to Zosyn given chest xray 07/24 * Zosyn 2.25 IV Q 8H * Repeat UA and Urine culture in AM 4) JACQUES * Nephrology consult - Dr. Aniya Najera - help appreciated * Increased D5-1/2NS to 80cc/hr from 60cc/hr 07/23/17 * urine sodium 32, urine osmolality 241(low), urine creatinine 65.6, Serum osmolality 302 * Renal US 07/23/17 - mild increased echogenicity of the bilateral renal parenchymal cortices suggestive for medical renal disease (please see full report) * F/U urine calcium, chloride * F/U CXR to see if we can increase IVF * Holding lisinopril, aldactone and lasix until 07/25/17 to assess affect on creatinine * Urine culture: E. Coli--start Zosyn IV 5) Microcytic Anemia * Ferous Sulfate 325 BID * Stool occult blood positive * Hematology consult - Dr. Sullivan - help appreciated * hypoproliferative erythroid response * responding to IV iron * element of anemia of CKD; s/p Procrit * monoclonal protein w/u sent * hemoglobinopathy evaluation sen * GI consult - Dr. Negron - help appreciated * Pending * CEA: 2.2 * CA 19-9: 23.0 * Elevated CA 125: 120 6) Stool Occult Blood * GI consult - Dr. Negron - help appreciated * CEA 2.2 * F/U barium enema - will do if creatinine decreases * F/U stool for C diff, stool culture, leukocytes, ova and parasites * Patient reports loose stool; on IV abx for UTI 7) Elevated CA 125; Fibroid * TV US showed fibroids but did not identify IUD * Elevated CA 125 * [employer] consult * Question if patient has IUD? not identified in pelvis US 8) Leg pain * Venous doppler - NEGATIVE for DVT on prelim-->Pending radiology read * Gabapentin 100mg PO TID 9) Hypertension Meds: * Lisinopril 40mg PO QD on hold secondary to JACQUES on 07/23 * Lasix 40 IV BID. Consider switching back to Lasix 20 PO BID on hold secondary to JACQUES * Coreg 3.125 BID per Cardio * Hydralazine 25 PO QID [facility]--> increased to hydralazine 100mg PO TID * Added Nitropaste 10) Diabetes * HgBA1c = 7.4 * ISS High * Accuchecks QAC and HS 11) Constipation * Resolved 12) Prophylactic measure * Heparin 5000U SC Q8 * Colace 100mg PO BID * Ambulate * Zofran 4mg IVP Q6 PRN nausea"
--- NOTE | 2017-07-24 09:19 | RAD ---
Chest x-ray single frontal view History: Pulmonary venous congestion. Comparison: 07/23/2017 Findings: Moderate venous congestion. Right hilar prominence and consolidation. Mild patchy left basilar opacity. Question trace left pleural effusion. Tortuous ectatic aorta. Cardiomegaly. Degenerative changes in the spine and shoulders. Question minimal calcific tendinopathy of the left proximal humerus. Impression: Moderate venous congestion. Right hilar prominence and consolidation. Mild patchy left basilar opacity. Question trace left pleural effusion. Tortuous ectatic aorta. Cardiomegaly.
[2017-07-24 09:26] LABS: BASO % 0.3 % (0.0-2.0); EOS # 0.2 K/uL (0.0-0.7); EOS % 2.1 % (0.0-4.0); HEMATOCRIT 24.9 % (34.0-47.0); LYMPH % 22.5 % (20.0-40.0); MEAN CELL VOLUME 76.8 fL (81.0-99.0); MEAN CORPUSCULAR HEMOGLOBIN 24.7 pg (27.0-31.0); MEAN CORPUSCULAR HGB CONC 32.1 g/dL (33.0-37.0); MEAN PLATELET VOLUME 8.5 fL (7.2-11.7); MONO # 0.9 K/uL (0.0-0.8); MONO % 10.8 % (0.0-10.0); RED CELL DISTRIBUTION WIDTH 18.2 % (11.5-14.5); WHITE BLOOD COUNT 8.7 K/uL (4.8-10.8)
[2017-07-24] MEDS: cefTRIAXone IV 1 gm in Dextros 50 ML IVPB SCH (10:25)
[2017-07-24 10:29] LABS: ALB/GLOB RATIO 1.2 (1.0-2.1); BILIRUBIN,TOTAL 0.5 mg/dL (0.2-1.3); CALCIUM 7.1 mg/dl (8.6-10.4); POTASSIUM 3.9 mmol/L (3.6-5.2); TOTAL PROTEIN 6.1 g/dL (6.3-8.3)
[2017-07-24] MEDS: Ferric Sodium Gluconat Complex 62.5 mg/5 ml Vial IVPB SCH (11:00)
[2017-07-24 11:11] LABS: HEMOGLOBIN F <1.0 Percent (<2.0)
[2017-07-24] MEDS ORDERED: Promethazine/Cod 6.25mg-10mg/5ml Syr UD PO PRN (15:37)
--- NOTE | 2017-07-24 15:58 | CON ---
DATE: 07/24/2017 LOCATION: 665, bed B. HISTORY OF PRESENT ILLNESS: I was called for GI consultation yesterday by a resident after I saw the patient's name in my list, about 07:15 to 07:30 in the morning, before even my time to be on-call. I was called by a resident 11:30 at a.m. regarding this consultation, claiming that the patient had one episode of diarrhea. Despite the patient had been in the hospital since 07/17/2017, never seen by a GI workers compensation consultant, except the time I am in call unfortunately. That is a repeated incident and accident by the admitting medical staff. Interviewing the patient this morning with Malian-spoken nurse. The patient denied having any diarrhea and no rectal bleeding actively despite her stool reported to be guaiac-positive stool one time only yesterday. Keeping in mind again, the patient had been in the hospital for the last 6 days before they call for a GI consult with low hemoglobin and hematocrit, but stool for occult blood was not done through the 6 days and through these 6 days, no GI consultation was called or performed by the admitting medical staff. Again, the patient denied having any diarrhea, but some loose bowel movement yesterday x1 as she had been given Colace by the admitting medical staff twice a day until even this morning; the last dose was yesterday, 07/23/2017, at 05:57 p.m. Even after the patient reported on morning, what the resident to call it as a diarrhea. Again, the patient denied any active bleeding, denied having any diarrhea, it was just 1 time loose bowel movement very early yesterday. A stool for occult blood was reported early yesterday at 07:59 a.m., collected at 04:00 a.m. as per the record. The patient had no complaint of abdominal pain, no diarrhea this morning, no reported active bleeding, and was given regular food, she tolerated very well. Her latest hemoglobin was 8.4, hematocrit 26.2. At this point, the patient to have barium enema, to be followed by upper GI with small-bowel follow-through, and to be followed up as an outpatient. Please contact me through admitting MD if further help is required. We will follow up only with you p.r.n. Christiano Stout MD cc: Christiano Stout MD [facility] # [phone]
[2017-07-24] MEDS ORDERED: Piperacill/Tazo 3.375gm in Dex 3.375 GM/50 ML BAG IVPB SCH (16:00)
[2017-07-24] MEDS ORDERED: Azithromycin 500 MG in Sodium Chloride 0.9% 250 ML IVPB SCH (17:00)
[2017-07-24] MEDS: Piperacill/Tazo 2.25gm in Dex 2.25 GM/50 ML BAG IVPB SCH (17:58)
--- NOTE | 2017-07-24 21:38 | CP.PCM.CON ---
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 Patient deneis any pelvic pain, abnromal vaginal discharge, nausea or vomiting.denies any abnormal bleeding OBGYN HX ; NVDX5; menopause at age 57 year of age patient states that she had IUD place din [facility] 40 years ago but does not remember it being removed last grant specialist visit 15 years ago as per patient Review of Systems - Gastrointestinal Gastrointestinal: absent: Abdominal Pain, Nausea, Vomiting - Reproductive: Female Reproductive:Female: Menopausal. absent: Abnormal Vaginal Bleeding, Vaginal Discharge, Vaginal Odor Past Patient History - Infectious Disease Hx of Infectious Diseases: None - Past Medical History & Family History Past Medical History?: Yes - Past Social History Smoking Status: Never Smoked - CARDIAC Hx Cardiac Disorders: Yes Hx Hypercholesterolemia: Yes Hx Hypertension: Yes - PULMONARY Hx Respiratory Disorders: No - NEUROLOGICAL Hx Neurological Disorder: No - HEENT Hx HEENT Problems: No - RENAL Hx Chronic Kidney Disease: No - ENDOCRINE/METABOLIC Hx Endocrine Disorders: Yes Hx Diabetes Mellitus Type 2: Yes - HEMATOLOGICAL/ONCOLOGICAL Hx Blood Disorders: Yes Hx Anemia: Yes - INTEGUMENTARY Hx Dermatological Problems: No - MUSCULOSKELETAL/RHEUMATOLOGICAL Hx Musculoskeletal Disorders: No Hx Falls: No - GASTROINTESTINAL Hx Gastrointestinal Disorders: No - GENITOURINARY/GYNECOLOGICAL Hx Genitourinary Disorders: No - PSYCHIATRIC Hx Psychophysiologic Disorder: No Hx Substance Use: No - SURGICAL HISTORY Hx Surgeries: No - ANESTHESIA Hx Anesthesia: No Meds Allergies/Adverse Reactions: Allergies Allergy/AdvReac Type Severity Reaction Status Date / Time No Known Allergies Allergy Verified 07/17/17 12:52 - Medications Medications: Current Medications Acetaminophen (Tylenol 325mg Tab) 650 mg PO Q6 PRN PRN Reason: Pain, moderate (4-7) Last Admin: 07/22/17 12:38 Dose: 650 mg Albuterol/Ipratropium (Duoneb 3 Mg/0.5 Mg (3 Ml) Ud) 3 ml INH RQ6 [facility] Last Admin: 07/24/17 19:38 Dose: Not Given Aspirin (Aspirin Chewable) 81 mg PO DAILY [facility] Last Admin: 07/24/17 10:30 Dose: 81 mg Carvedilol (Coreg) 6.25 mg PO BID [facility] Last Admin: 07/24/17 17:57 Dose: 6.25 mg Docusate Sodium (Colace) 100 mg PO BID [facility] Last Admin: 07/24/17 17:58 Dose: 100 mg Ferric Sodium Gluconate Complex (Ferrlecit) 125 mg IVPB DAILY [facility] Stop: 07/29/17 10:01 Last Admin: 07/24/17 11:00 Dose: 125 mg Furosemide (Lasix) 40 mg IVP BID [facility] Last Admin: 07/23/17 10:42 Dose: Not Given Gabapentin (Neurontin) 100 mg PO TID [facility] Last Admin: 07/24/17 17:58 Dose: 100 mg Heparin Sodium (Porcine) (Heparin) 5,000 units SC Q8 [facility] Last Admin: 07/24/17 21:08 Dose: 5,000 units Hydralazine HCl (Apresoline) 10 mg IVP Q6H PRN PRN Reason: Systolic Blood Pressure Last Admin: 07/20/17 11:39 Dose: 10 mg Hydralazine HCl (Apresoline) 100 mg PO Q8H [facility] Last Admin: 07/24/17 20:54 Dose: 100 mg Dextrose/Sodium Chloride (Dextrose 5%-0.45% Ns 500 Ml) 500 mls @ 80 mls/hr IV .Q6H15M [facility] Last Admin: 07/24/17 14:24 Dose: Not Given Azithromycin 500 mg/ Sodium (Chloride) 250 mls @ 250 mls/hr IVPB DAILY [facility] Last Admin: 07/24/17 20:54 Dose: 250 mls/hr Piperacillin Sod/Tazobactam Sod (Zosyn 2.25 Gm Iv Premix) 2.25 gm in 50 mls @ 100 mls/hr IVPB Q8H [facility] Last Admin: 07/24/17 17:58 Dose: 100 mls/hr Insulin Human Regular (Novolin R) 0 unit SC ACHS [facility] PRN Reason: Protocol Last Admin: 07/24/17 21:13 Dose: Not Given Lisinopril (Zestril) 40 mg PO DAILY [facility] Last Admin: 07/23/17 10:43 Dose: Not Given Nitroglycerin (Nitro-Bid 2% Oint) 1 ea TOP Q6H PRN PRN Reason: Pain, severe (8-10) Ondansetron HCl (Zofran Inj) 4 mg IVP Q6 PRN PRN Reason: Nausea/Vomiting Promethazine HCl/Codeine (Phenergan/Codeine Oral Syrup) 5 ml PO Q4 PRN PRN Reason: Cough Rosuvastatin Calcium (Crestor) 10 mg PO HS [facility] Last Admin: 07/24/17 21:08 Dose: 10 mg Spironolactone (Aldactone) 25 mg PO BID [facility] Last Admin: 07/23/17 10:42 Dose: Not Given Physical Exam - Constitutional Appears: Well, No Acute Distress - GI/Abdominal Exam GI & Abdominal Exam: Soft. absent: Rebound, Rigid, Tenderness - Extremities Exam Extremities exam: Negative for: calf tenderness - Back Exam Back exam: absent: CVA tenderness (L), CVA tenderness (R) - Neurological Exam Neurological exam: Alert, Oriented x3 - Psychiatric Exam Psychiatric exam: Normal Affect, Normal Mood Results - Vital Signs Recent Vital Signs: Last Vital Signs Temp 98.1 F 07/24/17 18:02 Pulse 69 07/24/17 18:02 Resp 20 07/24/17 18:02 BP 166/76 H 07/24/17 18:02 Pulse Ox 96 07/24/17 18:02 - Labs Result Diagrams: 07/24/17 09:22 07/24/17 09:22 Labs: Laboratory Results - last 24 hr 07/22/17 07/23/17 07/23/17 07:39 21:42 23:27 WBC RBC Hgb Hct MCV MCH MCHC RDW Plt Count MPV Neut % (Auto) Lymph % (Auto) [place] % (Auto) Eos % (Auto) Baso % (Auto) Neut # Lymph # [place] # Eos # Baso # Hemoglobin A 97.3 Hemoglobin A2 1.7 L Hemoglobin C 0.0 Hemoglobin F () <1.0 Hemoglobin S 0.0 Variant Hemoglobin 0.0 Hemoglobinopathy Interp See note Sodium Potassium Chloride Carbon Dioxide Anion Gap BUN Creatinine Est GFR ( Amer) Est GFR (Non-Af Amer) POC Glucose (mg/dL) 107 Random Glucose Calcium Total Bilirubin AST ALT Alkaline Phosphatase Total Protein Albumin Globulin Albumin/Globulin Ratio CA 19-9 Antigen CA 125 Antigen Urine Osmolality 241 L Ur Random Creatinine 65.6 Ur Random Sodium 32 07/24/17 07/24/17 07/24/17 06:35 09:22 09:22 WBC 8.7 RBC 3.24 L Hgb 8.0 L Hct 24.9 L MCV 76.8 L MCH 24.7 L MCHC 32.1 L RDW 18.2 H Plt Count 202 MPV 8.5 Neut % (Auto) 64.3 Lymph % (Auto) 22.5 [place] % (Auto) 10.8 H Eos % (Auto) 2.1 Baso % (Auto) 0.3 Neut # 5.6 Lymph # 2.0 [place] # 0.9 H Eos # 0.2 Baso # 0.0 Hemoglobin A Hemoglobin A2 Hemoglobin C Hemoglobin F () Hemoglobin S Variant Hemoglobin Hemoglobinopathy Interp Sodium 129 L Potassium 3.9 Chloride 100 Carbon Dioxide 17 L Anion Gap 16 BUN 42 H Creatinine 2.2 H Est GFR ( Amer) 26 Est GFR (Non-Af Amer) 22 POC Glucose (mg/dL) 202 H Random Glucose 223 H Calcium 7.1 L Total Bilirubin 0.5 AST 18 ALT 18 Alkaline Phosphatase 84 Total Protein 6.1 L Albumin 3.3 L Globulin 2.8 Albumin/Globulin Ratio 1.2 CA 19-9 Antigen 23.0 CA 125 Antigen 120 H Urine Osmolality Ur Random Creatinine Ur Random Sodium 07/24/17 07/24/17 07/24/17 11:57 16:53 21:09 WBC RBC Hgb Hct MCV MCH MCHC RDW Plt Count MPV Neut % (Auto) Lymph % (Auto) [place] % (Auto) Eos % (Auto) Baso % (Auto) Neut # Lymph # [place] # Eos # Baso # Hemoglobin A Hemoglobin A2 Hemoglobin C Hemoglobin F () Hemoglobin S Variant Hemoglobin Hemoglobinopathy Interp Sodium Potassium Chloride Carbon Dioxide Anion Gap BUN Creatinine Est GFR ( Amer) Est GFR (Non-Af Amer) POC Glucose (mg/dL) 182 H 181 H 171 H Random Glucose Calcium Total Bilirubin AST ALT Alkaline Phosphatase Total Protein Albumin Globulin Albumin/Globulin Ratio CA 19-9 Antigen CA 125 Antigen Urine Osmolality Ur Random Creatinine Ur Random Sodium Assessment & Plan (1) Fibroids Assessment and Plan: 81 y/o female found to have fibroids on ultrasound.patient asymptomatic. -recommend outpatient follow up Status: Acute (2) Elevated CA-125 Assessment and Plan: Patient with elevated ca125.Ovaries not visualized on ultrasound.CA125 could to elevated due to multiple causes like fibroids, ovarian cancer, endometriosis, liver disease etc Recommend grant specialist oncology evaluation Consider MRI of pelvis Status: Acute (3) Chest discomfort Status: Acute (4) Dyspnea on exertion Assessment and Plan: continue management as per primary team Status: Acute Priority: High (5) Diabetes Assessment and Plan: monitor blood sugars closely continue management as per primary team Status: Chronic Priority: Medium - Assessment and Plan (Free Text) Assessment: Patient with ?IUD -Ultrasound no iud seen -pelvic x ray pending
[2017-07-25] MEDS: Piperacill/Tazo 2.25gm in Dex 2.25 GM/50 ML BAG IVPB SCH ×3 (00:39→17:30)
[2017-07-25] MEDS: Albuterol-Ipratrop 3 mg / 0.5 (3 ml) UD INH SCH ×4 (01:40→20:21)
[2017-07-25 07:56] LABS: BASO % 0.5 % (0.0-2.0); EOS # 0.2 K/uL (0.0-0.7); EOS % 2.4 % (0.0-4.0); HEMATOCRIT 23.9 % (34.0-47.0); LYMPH # 1.5 K/uL (1.0-4.3); LYMPH % 21.8 % (20.0-40.0); MEAN CELL VOLUME 77.5 fL (81.0-99.0); MEAN CORPUSCULAR HGB CONC 32.2 g/dL (33.0-37.0); MEAN PLATELET VOLUME 8.4 fL (7.2-11.7); MONO # 0.9 K/uL (0.0-0.8); NRBC % 0.4 % (0.0-2.0); RED CELL DISTRIBUTION WIDTH 17.9 % (11.5-14.5); WHITE BLOOD COUNT 6.7 K/uL (4.8-10.8)
[2017-07-25 08:09] LABS: ALB/GLOB RATIO 1.2 (1.0-2.1); BILIRUBIN,TOTAL 0.5 mg/dL (0.2-1.3); MAGNESIUM 2.1 mg/dL (1.6-2.3); PHOSPHOROUS 5.3 mg/dL (2.5-4.5); TOTAL PROTEIN 5.7 g/dL (6.3-8.3)
--- NOTE | 2017-07-25 08:11 | CP.PCM.PN ---
<Tina Dasilva LouiseSpencer - Last Filed: 07/25/17 14:44> Subjective - Date & Time of Evaluation Date of Evaluation: 07/25/17 Time of Evaluation: 07:00 - Subjective Subjective: Patient was seen and examined at bedside. Patient complains feeling nauseated and has vomited once at bedside. Patient states she is hungry. Patient denies fever, chills, chest pain, or constipation. Patient states she had a bowel movement yesterday. Objective - Vital Signs/Intake and Output Vital Signs (last 24 hours): Temp Pulse Resp BP Pulse Ox 98.9 F 76 20 136/64 97 07/25/17 07:46 07/25/17 07:46 07/25/17 07:46 07/25/17 07:46 07/25/17 07:46 Intake and Output: 07/25/17 07/25/17 06:59 18:59 Intake Total 1650 Output Total 300 Balance 1350 - Medications Medications: Current Medications Acetaminophen (Tylenol 325mg Tab) 650 mg PO Q6 PRN PRN Reason: Pain, moderate (4-7) Last Admin: 07/22/17 12:38 Dose: 650 mg Albuterol/Ipratropium (Duoneb 3 Mg/0.5 Mg (3 Ml) Ud) 3 ml INH RQ6 [facility] Last Admin: 07/25/17 07:18 Dose: Not Given Aspirin (Aspirin Chewable) 81 mg PO DAILY [facility] Last Admin: 07/24/17 10:30 Dose: 81 mg Carvedilol (Coreg) 6.25 mg PO BID [facility] Last Admin: 07/24/17 17:57 Dose: 6.25 mg Docusate Sodium (Colace) 100 mg PO BID [facility] Last Admin: 07/24/17 17:58 Dose: 100 mg Ferric Sodium Gluconate Complex (Ferrlecit) 125 mg IVPB DAILY [facility] Stop: 07/29/17 10:01 Last Admin: 07/24/17 11:00 Dose: 125 mg Furosemide (Lasix) 40 mg IVP BID [facility] Last Admin: 07/23/17 10:42 Dose: Not Given Gabapentin (Neurontin) 100 mg PO TID [facility] Last Admin: 07/24/17 17:58 Dose: 100 mg Heparin Sodium (Porcine) (Heparin) 5,000 units SC Q8 [facility] Last Admin: 07/25/17 05:20 Dose: 5,000 units Hydralazine HCl (Apresoline) 10 mg IVP Q6H PRN PRN Reason: Systolic Blood Pressure Last Admin: 07/20/17 11:39 Dose: 10 mg Hydralazine HCl (Apresoline) 100 mg PO Q8H [facility] Last Admin: 07/25/17 05:20 Dose: 100 mg Dextrose/Sodium Chloride (Dextrose 5%-0.45% Ns 500 Ml) 500 mls @ 80 mls/hr IV .Q6H15M [facility] Last Admin: 07/25/17 05:26 Dose: Not Given Azithromycin 500 mg/ Sodium (Chloride) 250 mls @ 250 mls/hr IVPB DAILY [facility] Last Admin: 07/24/17 20:54 Dose: 250 mls/hr Piperacillin Sod/Tazobactam Sod (Zosyn 2.25 Gm Iv Premix) 2.25 gm in 50 mls @ 100 mls/hr IVPB Q8H [facility] Last Admin: 07/25/17 00:39 Dose: 100 mls/hr Insulin Human Regular (Novolin R) 0 unit SC ACHS [facility] PRN Reason: Protocol Last Admin: 07/24/17 21:13 Dose: Not Given Lisinopril (Zestril) 40 mg PO DAILY [facility] Last Admin: 07/23/17 10:43 Dose: Not Given Nitroglycerin (Nitro-Bid 2% Oint) 1 ea TOP Q6H PRN PRN Reason: Pain, severe (8-10) Ondansetron HCl (Zofran Inj) 4 mg IVP Q6 PRN PRN Reason: Nausea/Vomiting Promethazine HCl/Codeine (Phenergan/Codeine Oral Syrup) 5 ml PO Q4 PRN PRN Reason: Cough Rosuvastatin Calcium (Crestor) 10 mg PO HS [facility] Last Admin: 07/24/17 21:08 Dose: 10 mg Spironolactone (Aldactone) 25 mg PO BID [facility] Last Admin: 07/23/17 10:42 Dose: Not Given - Labs Labs: 07/25/17 07:46 07/25/17 07:46 PT 11.6 SECONDS (9.7-12.2) 07/20/17 18:03 INR 1.0 07/20/17 18:03 APTT 40 SECONDS (21-34) H D 07/21/17 01:27 - Constitutional Appears: In Acute Distress - Head Exam Head Exam: ATRAUMATIC, NORMAL INSPECTION, NORMOCEPHALIC - Eye Exam Eye Exam: EOMI, Normal appearance - ENT Exam ENT Exam: Mucous Membranes Moist - Respiratory Exam Respiratory Exam: Clear to Ausculation Bilateral, NORMAL BREATHING PATTERN - Cardiovascular Exam Cardiovascular Exam: REGULAR RHYTHM, RRR, +S1, +S2 - GI/Abdominal Exam GI & Abdominal Exam: Soft, Tenderness (left lower quadrant tenderness ), Normal Bowel Sounds - Extremities Exam Extremities Exam: Normal Inspection, Tenderness (bilateral lower extremity tenderness ) - Neurological Exam Neurological Exam: Alert, Awake. absent: Oriented x3 (oriented to person and place) - Psychiatric Exam Psychiatric exam: Anxious - Skin Skin Exam: Dry, Intact, Normal Color, Warm Assessment and Plan - Assessment and Plan (Free Text) Assessment: 1.) Dyspnea on exertion secondary to CHF vs. Pneumonia Cardio Consult: Dr. Pearl --> help appreciated - Echo (07/17/17):Grade II diastolic dysfunction; EF 55% - Chest X-ray (07/24): Moderate venous congestion; right hilar prominence and consolidation; mild patchy left basilar opacity. - f/u Strep pneumonia urine, Legionella urine, and Mycoplasma IgM - Zosyn started 07/24 - Duonebs PRN shortness of breath 2.) Diastolic CHF (Type II) Cardio Consult: Dr. Pearl --> help appreciated - Echo (07/17/17):Grade II diastolic dysfunction; EF 55% - Chest X-ray (07/24): Moderate venous congestion; right hilar prominence and consolidation; mild patchy left basilar opacity. - EUGENIA (07/20/2017) Showed 0.184 inc. to 0.196 and began down-trending - EKG (07/20/17) NSR - Lipid panel -WNL - Stress Test (07/20/17) - Showed defect possibly representing ischemia - Cardiac Cath (07/21/17) - Angiographically normal coronaries and normal LV systolic function Medications: * Lasix 40 IV BID discontinued secondary to JACQUES * Crestor 10 PO HS * Aldactone 25 PO BID discontinued secondary to JACQUES * Lisinopril 40 PO QD discontinued secondary to JACQUES * Added Coreg 3.125 BID per Cardio * Added Duonebs per Cardio * Added Nitropaste per Cardio. 3.) JACQUES Likely secondary to medications and dye from cardiac cath Nephro consult: Dr. Najera --> help appreciated - urine sodium 32, urine osmolality 241(low), urine creatinine 65.6 - f/u urine chloride - Serum osmolality 302 - Renal US 07/23 - mild increased echogenicity of the bilateral renal parenchymal cortices suggestive for medical renal disease (please see full report) - Chest X-ray (07/24): Moderate venous congestion; right hilar prominence and consolidation; mild patchy left basilar opacity. - Discussed with Dr. Figueredo: Discontinue Lisinopril, aldactone and lasix 4.) UTI (urinary tract infection) - First UA contaminated - Repeat UA shows trace Leuk Es. - Urine Culture- E.Coli sensitive to all antibiotics tested Antibiotics: * Azithromycin 500mg started on 07/25 * Zosyn started 07/24 5.) Stool Occult Blood Positive GI consult: Dr. Negron --> help appreciated - CEA 2.2 - CA125: 120 (high) - CA19-9: 23 - F/U stool for C diff, stool culture, leukocytes, ova and parasites 6.) Chronic Leg Pain - Bilateral Venous Doppler (07/25/17): Negative for DVT - Venous doppler (07/17/17)- NEGATIVE for DVT - Gabapentin 100mg PO TID 7.) Microcytic Anemia Hematology consult: Dr. Sullivan --> help appreciated GI consult: Dr. 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 Lozoya --> help appreciated - Transvaginal US showed fibroids but did not identify IUD - CA125: 120 (high) - f/u MRI of pelvis - recommendation by Dr. Lozoya - Outpatient [employer] follow for possible IUD and uterine fibroids 9.) History Hypertension Medications: * Lisinopril 40mg PO QD discontinued secondary to JACQUES * Lasix 40 IV BID discontinued secondary to JACQUES * Coreg 3.125 BID per Cardio * Hydralazine 25 PO QID KAZ--> increased to hydralazine 100mg PO TID * Nitropaste 10.) History of Diabetes - HgBA1c = 7.4 - ISS High - Accuchecks 11.) Constipation - Resolved - Colace discontinued 07/25 secondary to loose stool 12.) Prophylactic measure - Heparin 5000U SC Q8 - Zofran 4mg IVP Q6PRN - Ambulate <Ventura Mittal - Last Filed: 08/09/17 15:37> Objective - Vital Signs/Intake and Output Vital Signs (last 24 hours): Temp Pulse Resp BP Pulse Ox 99.2 F 85 20 134/52 L 96 08/06/17 09:31 08/06/17 09:31 08/06/17 09:31 08/06/17 09:33 08/06/17 09:31 - Labs Labs: 08/06/17 06:11 08/06/17 06:11 PT 11.6 SECONDS (9.7-12.2) 07/20/17 18:03 INR 1.0 07/20/17 18:03 APTT 40 SECONDS (21-34) H D 07/21/17 01:27 Attending/Attestation - Attestation I have personally seen and examined this patient.: Yes I have fully participated in the care of the patient.: Yes I have reviewed all pertinent clinical information, including history, physical exam and plan: Yes Notes (Text): Dyspnea on exertion due to Acute Diastolic CHF likely Hypertension
[2017-07-25 08:17] LABS: POTASSIUM 4.5 mmol/L (3.6-5.2)
[2017-07-25] MEDS: (Novolin R) Insulin Human Regular 100 units/ml vial SC SCH ×4 (08:30→21:32)
--- NOTE | 2017-07-25 08:43 | CON ---
RENAL CONSULTATION LOCATION: The patient is located in room 667, bed B. REQUESTING PHYSICIAN: Dr. Kate Morales. REASON FOR RENAL CONSULTATION: Acute renal failure, for further evaluation. HISTORY OF PRESENT ILLNESS: Mrs. Hillman is about 81 years old very pleasant elderly female with past medical history significant for hypertension, diabetes, hypercholesteremia who was admitted with chief complaints of shortness of breath for about 3 to 4 months. The patient can walk only about 6 to 7 steps without shortness of breath and dyspnea on exertion and also complains of orthopnea and using about two pillows to sleep. The patient was also complaining of headache and bilateral leg pains with poor vision. The patient was very hypertensive in the Emergency Room, given labetalol, Lasix and hydralazine to control the blood pressure. The patient denied any fever, nausea, vomiting, diarrhea. The patient underwent cardiac cath on 07/21/2017. The patient was found to have worsening renal function since 07/21/2017. The patient denies any complaints at this time, resting comfortably. PAST MEDICAL HISTORY: Significant for longstanding hypertension, diabetes, hyperlipidemia, orthopnea and shortness of breath. PAST SURGICAL HISTORY: Denies any surgeries. ALLERGIES: DENIES ANY ALLERGIES. SOCIAL HISTORY: No smoking, no alcohol, no drugs. PERSONAL HISTORY: She is and she has 6 children. FAMILY HISTORY: Is not significant. HOME MEDICATIONS: Include metformin 1000 mg p.o. b.i.d., Colace 100 mg p.o. b.i.d., ferrous sulfate 325 mg t.i.d., lisinopril 40 mg p.o. daily, nitrofurantoin 1 capsule p.o. b.i.d. CURRENT MEDICATIONS: In the hospital include as follows; Aldactone on hold since 07/17/2017, hydralazine 10 mg IV q.6 hours p.r.n. and hydralazine 100 mg p.o. q.8 hours, aspirin 81 mg daily, Colace 100 mg p.o. b.i.d., Coreg 6.25 mg p.o. b.i.d., Crestor 10 mg at bedtime, IV fluids D5 half normal saline at 80 mL/hour, DuoNeb inhaler, Ferrlecit 125 mg daily, heparin 5000 units subcu q.8 hours, Lasix on hold, nitroglycerin ointment 1 inch topical q.6 hours, Rocephin 1 g daily, Tylenol, lisinopril 40 mg daily on hold and Zofran 4 mg IV q.6 hours. REVIEW OF SYSTEMS: Significant for shortness of breath and dyspnea on exertion and orthopnea. All other review of systems are reviewed and are negative. All 12 review of systems. PHYSICAL EXAMINATION: VITAL SIGNS: As follows; blood pressure 164/72, pulse 71, respirations 20, temperature 97.8, saturation 97%. Height 5 feet 2 inches and weight is 160 pounds. GENERAL: Mrs. Hillman is a 81 years old elderly female, moderately-built, moderately-nourished, not in acute distress. HEENT: Pupils normal, reactive to light and accommodation. Conjunctivae pink. Sclerae anicteric. Tongue is moist. Trachea is midline. LUNGS: Symmetric on both sides. Bilateral breath sounds present. Clear on auscultation. CARDIOVASCULAR SYSTEM: [place] at the fifth intercostal space, midclavicular line. S1 and S2 audible. No murmur or gallop. ABDOMEN: Normal in appearance, soft, tympanic. No guarding, no rigidity. No hepatosplenomegaly. No abdominal bruit. CENTRAL NERVOUS SYSTEM: The patient is alert, awake, oriented x3. Nonfocal neuro examination. Cranial nerves II through XII grossly intact. Sensory and motor system is within normal limits. EXTREMITIES: No cyanosis, no clubbing, no edema. LABORATORY DATA: Include as follows as of 07/23/2017; WBC 8.8, hemoglobin 8.4, hematocrit is 26.2, MCV 75.8, platelets 208. Sodium 131, potassium is 4, chloride 101, CO2 of 20, BUN 37, creatinine 2.2, glucose 221, calcium 7.5. Total bili 0.3, AST 17, ALT 29, alkaline phosphatase 93, total protein 7.5, albumin 3.5 and CEA is 2.2. Stool for occult blood is positive as of 07/23/2017. Hemoglobin electrophoresis is pending. Troponin level as of 07/20/2017 was 0.167, 0.156, 0.19 and 0.184 and on admission 0.012. As of 07/21/2017; BUN and creatinine were 32 and 1.5. As of 07/20/2017; BUN and creatinine were 27 and 1.2. On admission as of 07/17/2017; BUN and creatinine were 16 and 1.0 and proBNP 1850. Urinalysis; yellow clear, pH 6, specific gravity 1.018, protein 3+, glucose 1+, ketones negative, blood negative, nitrites negative, bilirubin negative, urobilinogen normal, leukocyte esterase 2+, wbc 37, rbc 3. On admission WBC 5.8, hemoglobin 8.7, hematocrit is 26.3, platelets 232, MCV 73.9. Influenza A and B antibodies negative. Also other reports, ultrasound of the kidneys as of 07/23/2017; right kidney 8.3 x 4.5 x 5 cm and left kidney 9.9 x 4.8 x 4.9 cm. Mild increased echogenicity of the bilateral renal parenchymal cortices suggestive of medical disease. Visualized urinary blood is grossly preserved and no calculi or hydronephrosis in both kidneys. Other laboratory data as of 07/21/2017; urine is yellow hazy, pH 6, specific gravity 1.018, protein 1+, glucose normal, ketones negative, blood 1+, nitrites negative, bilirubin negative, urobilinogen normal, leukocyte esterase 3+ and wbc 1282, bacteria is rare, rbc 22. Urine culture is positive for gram-negative rods on 07/21/2017. Identification is pending. ASSESSMENT: In summary, Mrs. Hillman is a 81 years elderly female with history of hypertension, diabetes, hyperlipidemia who was admitted with shortness of breath and dyspnea on exertion, orthopnea, being treated for congestive heart failure and underwent cardiac cath on 07/21/2017 with worsening renal function. 1. Nonoliguric acute renal failure, most likely secondary to ATN secondary to contrast nephropathy in the setting of prerenal azotemia. The patient underwent cardiac cath of 07/21. 2. Hypertension. 3. Urinary trace infection. 4. Diabetes. 5. Status post congestive heart failure. PLAN: Continue with gentle IV hydration, check urine electrolytes, urine osmolality, urine creatinine and continue IV antibiotics Rocephin and follow up urine cultures identification and adjust antibiotics as per the sensitivity and also try to obtain BMP daily. We will follow with you. Thank you for allowing me to participate in your patient's care. Case discussed with the residents this afternoon. Chuck Figueredo MD [facility] # [id number]
--- NOTE | 2017-07-25 09:11 | RAD ---
PROCEDURE: Radiographs of the pelvis. HISTORY: check for IUD COMPARISON: None. FINDINGS: BONES: Pelvic Bones: Unremarkable. Hips: Grossly unremarkable. JOINTS: Sacroiliac Joints: Unremarkable. Pubic Symphysis: Unremarkable. OTHER FINDINGS: Lippe's loop intrauterine device identified left parasagittal pelvis. IMPRESSION: Intrauterine device noted within pelvis.
[2017-07-25] MEDS: Ferric Sodium Gluconat Complex 62.5 mg/5 ml Vial IVPB SCH (09:47)
--- NOTE | 2017-07-25 09:55 | RAD ---
Chest x-ray single frontal view History: Pulmonary venous congestion. Comparison: 07/17/2017 Findings: Mild venous congestion. Upper lobe granulomatous changes. Right hilar prominence. Right paratracheal airspace opacity may represent prominent vasculature. Mild patchy increased markings in the right infrahilar region and left lung base. Tortuous ectatic aorta. Cardiomegaly. Degenerative changes in the spine and shoulders. Impression: Mild venous congestion. Upper lobe granulomatous changes. Right hilar prominence. Right paratracheal airspace opacity may represent prominent vasculature. Mild patchy increased markings in the right infrahilar region and left lung base. Tortuous ectatic aorta. Cardiomegaly.
--- NOTE | 2017-07-25 12:18 | VASCLAB ---
PROCEDURE: Lower Extremity Venous Duplex Exam. HISTORY: Leg pain PRIORS: None. TECHNIQUE: Bilateral common femoral, femoral, popliteal and posterior tibial, peroneal and great saphenous veins were evaluated. Flow was assessed with color Doppler, compressibility, assessment of phasic flow and augmentation response. Report prepared by JAMARI Doshi FINDINGS: RIGHT: 1. Common Femoral Vein: 1.1. Compressibility - Fully compressible: Thrombus - None : Flow - Phasic: Augmentation -Normal: Reflux - None. 2. Femoral Vein: 2.1. Compressibility - Fully compressible: Thrombus - None : Flow - Phasic: Augmentation -Normal: Reflux - None. 3. Popliteal Vein: 3.1. Compressibility - Fully compressible: Thrombus - None : Flow - Phasic: Augmentation -Normal: Reflux - None. 4. Posterior Tibial Vein: 4.1. Compressibility - Fully compressible: Thrombus - None: Flow - Phasic: Augmentation -Normal: Reflux - None. 5. Peroneal Vein: 5.1. Compressibility - Fully compressible: Thrombus - None: Flow - Phasic: Augmentation -Normal: Reflux - None. 6. Great Saphenous Vein: 6.1. Compressibility - Fully compressible: Thrombus - None: Flow - Phasic: Augmentation - Normal: Reflux - None. LEFT: 1. Common Femoral Vein: 1.1. Compressibility - Fully compressible: Thrombus - None: Flow - Phasic: Augmentation -Normal: Reflux - None. 2. Femoral Vein: 2.1. Compressibility - Fully compressible: Thrombus - None: Flow - Phasic: Augmentation -Normal: Reflux - None. 3. Popliteal Vein: 3.1. Not examined 4. Posterior Tibial Vein: 4.1. Not examined 5. Peroneal Vein: 5.1. Not examined 6. Great Saphenous Vein: 6.1. Not examined OTHER FINDINGS: Right: None significant. Left: Limited exam of the left lower extremity, due to patient intolerance to pain. IMPRESSION: Right: No evidence of deep or superficial vein thrombosis of the right lower extremity. Normal valve function noted of the right side. Left: No evidence of deep or superficial vein thrombosis of the left lower extremity, for the examined veins. Normal valve function noted of the left side.
--- NOTE | 2017-07-25 12:55 | CP.PCM.PN ---
Subjective - Date & Time of Evaluation Date of Evaluation: 07/25/17 Time of Evaluation: 12:54 - Subjective Subjective: pt is seen and examined, follow up consult is dictated #[id number] Objective - Vital Signs/Intake and Output Vital Signs (last 24 hours): Temp Pulse Resp BP Pulse Ox 98.9 F 76 20 136/64 97 07/25/17 07:46 07/25/17 07:46 07/25/17 07:46 07/25/17 07:46 07/25/17 07:46 Intake and Output: 07/25/17 07/25/17 06:59 18:59 Intake Total 1650 Output Total 300 Balance 1350 - Medications Medications: Current Medications Acetaminophen (Tylenol 325mg Tab) 650 mg PO Q6 PRN PRN Reason: Pain, moderate (4-7) Last Admin: 07/22/17 12:38 Dose: 650 mg Albuterol/Ipratropium (Duoneb 3 Mg/0.5 Mg (3 Ml) Ud) 3 ml INH RQ6 [facility] Last Admin: 07/25/17 07:18 Dose: Not Given Aspirin (Aspirin Chewable) 81 mg PO DAILY [facility] Last Admin: 07/25/17 09:49 Dose: 81 mg Carvedilol (Coreg) 6.25 mg PO BID [facility] Last Admin: 07/25/17 09:47 Dose: 6.25 mg Docusate Sodium (Colace) 100 mg PO BID [facility] Last Admin: 07/25/17 09:47 Dose: 100 mg Ferric Sodium Gluconate Complex (Ferrlecit) 125 mg IVPB DAILY [facility] Stop: 07/29/17 10:01 Last Admin: 07/25/17 09:47 Dose: 125 mg Furosemide (Lasix) 40 mg IVP BID [facility] Last Admin: 07/25/17 11:00 Dose: Not Given Gabapentin (Neurontin) 100 mg PO TID [facility] Last Admin: 07/25/17 09:47 Dose: 100 mg Heparin Sodium (Porcine) (Heparin) 5,000 units SC Q8 [facility] Last Admin: 07/25/17 05:20 Dose: 5,000 units Hydralazine HCl (Apresoline) 10 mg IVP Q6H PRN PRN Reason: Systolic Blood Pressure Last Admin: 07/20/17 11:39 Dose: 10 mg Hydralazine HCl (Apresoline) 100 mg PO Q8H [facility] Last Admin: 07/25/17 12:41 Dose: 100 mg Dextrose/Sodium Chloride (Dextrose 5%-0.45% Ns 500 Ml) 500 mls @ 80 mls/hr IV .Q6H15M [facility] Last Admin: 07/25/17 05:26 Dose: Not Given Piperacillin Sod/Tazobactam Sod (Zosyn 2.25 Gm Iv Premix) 2.25 gm in 50 mls @ 100 mls/hr IVPB Q8H [facility] Last Admin: 07/25/17 08:39 Dose: 100 mls/hr Azithromycin 500 mg/ Sodium (Chloride) 250 mls @ 250 mls/hr IVPB DAILY@2100 [facility] Insulin Human Regular (Novolin R) 0 unit SC ACHS [facility] PRN Reason: Protocol Last Admin: 07/25/17 12:42 Dose: 2 unit Lisinopril (Zestril) 40 mg PO DAILY [facility] Last Admin: 07/25/17 11:00 Dose: Not Given Nitroglycerin (Nitro-Bid 2% Oint) 1 ea TOP Q6H PRN PRN Reason: Pain, severe (8-10) Ondansetron HCl (Zofran Inj) 4 mg IVP Q6 PRN PRN Reason: Nausea/Vomiting Promethazine HCl/Codeine (Phenergan/Codeine Oral Syrup) 5 ml PO Q4 PRN PRN Reason: Cough Rosuvastatin Calcium (Crestor) 10 mg PO HS [facility] Last Admin: 07/24/17 21:08 Dose: 10 mg Spironolactone (Aldactone) 25 mg PO BID [facility] Last Admin: 07/25/17 11:00 Dose: Not Given - Labs Labs: 07/25/17 07:46 07/25/17 07:46 PT 11.6 SECONDS (9.7-12.2) 07/20/17 18:03 INR 1.0 07/20/17 18:03 APTT 40 SECONDS (21-34) H D 07/21/17 01:27
--- NOTE | 2017-07-25 15:47 | CP.PCM.PN ---
<Silas Sheriff - Last Filed: 07/25/17 15:44> Subjective - Date & Time of Evaluation Date of Evaluation: 07/25/17 Time of Evaluation: 15:44 - Subjective Subjective: PGY-1 MICROSTRATEGY BI DEVELOPER note for Dr Yu. Patient seen and examined at bedside. She was sleeping on her left side when I walked in. A translation machine was used to communicate. She stated she felt nauseous and fatigued. Patient denied pelvic pain, abnormal vaginal discharge, vaginal bleeding, dysuria, fever, chills. Objective - Vital Signs/Intake and Output Vital Signs (last 24 hours): Temp Pulse Resp BP Pulse Ox 98.0 F 70 18 149/65 95 07/25/17 15:33 07/25/17 15:33 07/25/17 15:33 07/25/17 15:33 07/25/17 15:33 Intake and Output: 07/25/17 07/25/17 06:59 18:59 Intake Total 1650 850 Output Total 300 400 Balance 1350 450 - Medications Medications: Current Medications Acetaminophen (Tylenol 325mg Tab) 650 mg PO Q6 PRN PRN Reason: Pain, moderate (4-7) Last Admin: 07/22/17 12:38 Dose: 650 mg Albuterol/Ipratropium (Duoneb 3 Mg/0.5 Mg (3 Ml) Ud) 3 ml INH RQ6 [facility] Last Admin: 07/25/17 13:14 Dose: 3 ml Aspirin (Aspirin Chewable) 81 mg PO DAILY [facility] Last Admin: 07/25/17 09:49 Dose: 81 mg Carvedilol (Coreg) 6.25 mg PO BID [facility] Last Admin: 07/25/17 09:47 Dose: 6.25 mg Ferric Sodium Gluconate Complex (Ferrlecit) 125 mg IVPB DAILY [facility] Stop: 07/29/17 10:01 Last Admin: 07/25/17 09:47 Dose: 125 mg Gabapentin (Neurontin) 100 mg PO TID [facility] Last Admin: 07/25/17 15:37 Dose: 100 mg Heparin Sodium (Porcine) (Heparin) 5,000 units SC Q8 [facility] Last Admin: 07/25/17 15:37 Dose: 5,000 units Hydralazine HCl (Apresoline) 10 mg IVP Q6H PRN PRN Reason: Systolic Blood Pressure Last Admin: 07/20/17 11:39 Dose: 10 mg Hydralazine HCl (Apresoline) 100 mg PO Q8H [facility] Last Admin: 07/25/17 12:41 Dose: 100 mg Piperacillin Sod/Tazobactam Sod (Zosyn 2.25 Gm Iv Premix) 2.25 gm in 50 mls @ 100 mls/hr IVPB Q8H [facility] Last Admin: 07/25/17 08:39 Dose: 100 mls/hr Azithromycin 500 mg/ Sodium (Chloride) 250 mls @ 250 mls/hr IVPB DAILY@2100 [facility] Insulin Human Regular (Novolin R) 0 unit SC ACHS [facility] PRN Reason: Protocol Last Admin: 07/25/17 12:42 Dose: 2 unit Nitroglycerin (Nitro-Bid 2% Oint) 1 ea TOP Q6H PRN PRN Reason: Pain, severe (8-10) Ondansetron HCl (Zofran Inj) 4 mg IVP Q6 PRN PRN Reason: Nausea/Vomiting Promethazine HCl/Codeine (Phenergan/Codeine Oral Syrup) 5 ml PO Q4 PRN PRN Reason: Cough Rosuvastatin Calcium (Crestor) 10 mg PO HS [facility] Last Admin: 07/24/17 21:08 Dose: 10 mg - Labs Labs: 07/25/17 07:46 07/25/17 07:46 PT 11.6 SECONDS (9.7-12.2) 07/20/17 18:03 INR 1.0 07/20/17 18:03 APTT 40 SECONDS (21-34) H D 07/21/17 01:27 - Constitutional Appears: Well, No Acute Distress - Respiratory Exam Respiratory Exam: Clear to Ausculation Bilateral, NORMAL BREATHING PATTERN. absent: Rales, Rhonchi, Wheezes - Cardiovascular Exam Cardiovascular Exam: REGULAR RHYTHM, RRR, +S1, +S2. absent: Bradycardia, Tachycardia, Murmur - GI/Abdominal Exam GI & Abdominal Exam: Soft, Tenderness, Normal Bowel Sounds Additional comments: lower quadrant tenderness, L > R - Extremities Exam Extremities Exam: Normal Capillary Refill, Normal Inspection, Pedal Edema, Tenderness - Neurological Exam Neurological Exam: Alert, Awake, Oriented x3 - Skin Skin Exam: Intact, Normal Color, Warm Assessment and Plan - Assessment and Plan (Free Text) Assessment: (1) Fibroids Assessment and Plan: 81 y/o female found to have fibroids on ultrasound. Patient asymptomatic. -recommend outpatient follow up -no gravity prospecting observer intervention indicated in regards to retained IUD Imaging: XRAY Pelvis 07/24: IMPRESSION: Intrauterine device noted within pelvis. Transvaginal US 07/19: IMPRESSION: Heterogeneous uterine echotexture. Probable calcified uterine fibroid measures maximally 2.6 cm in the mid uterus. Probable calcified fundal fibroid measures approximately 2.7 cm. An IUD is not clearly identified. Recommend further evaluation with abdominal x-ray. Bilateral ovaries were not visualized. Status: Acute (2) Elevated CA-125 Assessment and Plan: Patient with elevated CA-125. Ovaries not visualized on ultrasound. CA-125 could be elevated due to multiple causes such as fibroids, ovarian cancer, endometriosis, liver disease etc Recommend engraver pantograph oncology evaluation F/U MRI of pelvis Status: Acute (3) Chest discomfort Status: Acute continue management as per primary team Status: Acute Priority: High (4) Dyspnea on exertion Assessment and Plan: continue management as per primary team Status: Acute Priority: High (5) Diabetes Assessment and Plan: monitor blood sugars closely continue management as per primary team Status: Chronic Priority: Medium <Gigi,Katherin A - Last Filed: 07/25/17 20:05> Objective - Vital Signs/Intake and Output Vital Signs (last 24 hours): Temp Pulse Resp BP Pulse Ox 98.0 F 70 18 149/65 95 07/25/17 15:33 07/25/17 15:33 07/25/17 15:33 07/25/17 15:33 07/25/17 15:33 Intake and Output: 07/25/17 07/26/17 18:59 06:59 Intake Total 850 Output Total 400 Balance 450 - Medications Medications: Current Medications Acetaminophen (Tylenol 325mg Tab) 650 mg PO Q6 PRN PRN Reason: Pain, moderate (4-7) Last Admin: 07/22/17 12:38 Dose: 650 mg Albuterol/Ipratropium (Duoneb 3 Mg/0.5 Mg (3 Ml) Ud) 3 ml INH RQ6 [facility] Last Admin: 07/25/17 13:14 Dose: 3 ml Aspirin (Aspirin Chewable) 81 mg PO DAILY [facility] Last Admin: 07/25/17 09:49 Dose: 81 mg Carvedilol (Coreg) 6.25 mg PO BID [facility] Last Admin: 07/25/17 17:30 Dose: 6.25 mg Ferric Sodium Gluconate Complex (Ferrlecit) 125 mg IVPB DAILY [facility] Stop: 07/29/17 10:01 Last Admin: 07/25/17 09:47 Dose: 125 mg Gabapentin (Neurontin) 100 mg PO TID [facility] Last Admin: 07/25/17 17:30 Dose: 100 mg Heparin Sodium (Porcine) (Heparin) 5,000 units SC Q8 [facility] Last Admin: 07/25/17 15:37 Dose: 5,000 units Hydralazine HCl (Apresoline) 10 mg IVP Q6H PRN PRN Reason: Systolic Blood Pressure Last Admin: 07/20/17 11:39 Dose: 10 mg Hydralazine HCl (Apresoline) 100 mg PO Q8H [facility] Last Admin: 07/25/17 12:41 Dose: 100 mg Piperacillin Sod/Tazobactam Sod (Zosyn 2.25 Gm Iv Premix) 2.25 gm in 50 mls @ 100 mls/hr IVPB Q8H [facility] Last Admin: 07/25/17 17:30 Dose: 100 mls/hr Azithromycin 500 mg/ Sodium (Chloride) 250 mls @ 250 mls/hr IVPB DAILY@2100 [facility] Insulin Human Regular (Novolin R) 0 unit SC ACHS [facility] PRN Reason: Protocol Last Admin: 07/25/17 16:54 Dose: Not Given Nitroglycerin (Nitro-Bid 2% Oint) 1 ea TOP Q6H PRN PRN Reason: Pain, severe (8-10) Ondansetron HCl (Zofran Inj) 4 mg IVP Q6 PRN PRN Reason: Nausea/Vomiting Promethazine HCl/Codeine (Phenergan/Codeine Oral Syrup) 5 ml PO Q4 PRN PRN Reason: Cough Rosuvastatin Calcium (Crestor) 10 mg PO [facility] Last Admin: 07/24/17 21:08 Dose: 10 mg - Labs Labs: 07/25/17 07:46 07/25/17 07:46 PT 11.6 SECONDS (9.7-12.2) 07/20/17 18:03 INR 1.0 07/20/17 18:03 APTT 40 SECONDS (21-34) H D 07/21/17 01:27 Attending/Attestation - Attestation I have personally seen and examined this patient.: Yes I have fully participated in the care of the patient.: Yes I have reviewed all pertinent clinical information, including history, physical exam and plan: Yes Notes (Text): 07/25/17 19:35 Patient seen as a follow up consultation: 81 y.o. incidental finding of elevated CA-125; calcified leiomyomata on ultrasound and confirmed IUD in utero by abdominal X-ray. I agree with the above as documented by the resident, with the following clarification: Patient received in bed, room 669-B. Patient offers no complaints at this time. Patient is [place]ic-speaking only - Clinical Partner, Joyce, served as sustainable agriculture specialist It was explained to the patient, IUD is confirmed. It was also explained to the patient, attempts at removing the IUD will most likely require examination under anesthesia. In addition, patient would have to be consented for possible surgery including but not limited to exploratory laparotomy and the possible complications that may develop. Patient expressed an understanding and does not desire to proceed with attempt at removing her IUD. Patient stated on several occasions, that the IUD has caused her problems over the past 40 years. Patient also with no prior knowledge of leiomyomata: doesn't recall her last engraver pantograph encounter. Calcified process is within normal limits in a post menopausal female. To reiterate, elevated CA-125 is very non-specific, and is often seen in several inflammatory/infectious processes, leiomyomata, endometriosis, to name a few benign medical processes. Assessment: 81 y.o. postmenopausal female, as above; multiple medical issues, being managed by medicine. No engraver pantograph intervention indicated at this time, Patient is clinically stable. Plan: 1) as per primary medical team Thank you for the pleasure of this consultation.
[2017-07-25] MEDS: Azithromycin 500 MG in Sodium Chloride 0.9% 250 ML IVPB SCH (21:15)
[2017-07-25 21:48] LABS: RBC URINE 1 /hpf (0-3); URINE BILIRUBIN NEGATIVE (NEGATIVE); URINE BLOOD 1+ (NEGATIVE); URINE COLOR Yellow (YELLOW); URINE GLUCOSE (UA) 1+ mg/dL (Normal); URINE KETONE NEGATIVE (NEGATIVE); URINE LEUKOCYTE ESTERASE 3+ Leu/uL (Negative); URINE PROTEIN 2+ mg/dL (NEGATIVE); URINE UROBILINOGEN NORMAL mg/dL (0.2-1.0); WBC URINE 42 /hpf (0-5)
[2017-07-25 22:58] LABS: KAPPA/LAMBDA FREE RATIO 1.95 (0.26-1.65)
[2017-07-26] MEDS: Piperacill/Tazo 2.25gm in Dex 2.25 GM/50 ML BAG IVPB SCH ×3 (00:31→18:00)
[2017-07-26] MEDS: Albuterol-Ipratrop 3 mg / 0.5 (3 ml) UD INH SCH ×4 (01:34→19:12)
--- NOTE | 2017-07-26 01:51 | PN ---
FOLLOWUP RENAL CONSULTATION LOCATION: The patient is located in room 669, bed B. REQUESTING PHYSICIAN: Dr. Kate Morales. REASON FOR FOLLOWUP: Acute renal failure, for further evaluation. HISTORY OF PRESENT ILLNESS: Mrs. Hillman is a 81 years old elderly female with past medical history significant for diabetes, hypertension, was admitting with chief complaints of shortness of breath, subsequently the patient underwent cardiac cath and being treated for CHF. Her renal function deteriorated after cardiac cath. The patient is not in acute distress. The patient was n.p.o. this morning for possible barium enema. The patient is not in distress, resting comfortably. No chest pain, no palpitation. No fever. No cough. No abdominal pain. No nausea, vomiting, diarrhea. PHYSICAL EXAMINATION: VITAL SIGNS: As follows; blood pressure this morning 136/64, pulse 76, respirations 20, temperature 98.9, saturation 97%. Height 5 feet 2 inches and weight is 169 pounds. GENERAL: Mrs. Hillman is a 81 years old elderly female, moderately-built, moderately-nourished, not in acute distress. HEENT: Pupils normal, reactive to light and accommodation. Conjunctivae slightly pale. Sclerae anicteric. Tongue is moist, tracheal is midline. LUNGS: Symmetric on both sides. Bilateral breath sounds present. No crackles. CARDIOVASCULAR SYSTEM: [place] at the fifth intercostal space, midclavicular line. S1 and S2 audible. No murmur or gallop. ABDOMEN: Normal in appearance, soft, tympanic. No guarding, no rigidity. No hepatosplenomegaly. CENTRAL NERVOUS SYSTEM: The patient is alert, awake, oriented x3. Nonfocal neuro examination. Cranial nerves II through XII grossly intact. Sensory and motor system are within normal limits. EXTREMITIES: No cyanosis, no clubbing, no edema. CURRENT MEDICATIONS: Include as follows; hydralazine 100 mg p.o. q.8 hours, aspirin 81 mg daily, azithromycin 500 mg daily, Coreg 6.25 mg p.o. b.i.d., Crestor 10 mg at bedtime, DuoNeb inhaler, Ferrlecit 125 mg daily, subcu heparin 5000 q.8 hours, gabapentin 100 mg p.o. t.i.d., Nitro-Bid ointment 1 inch topical q.6 hours, Novolin R for sliding scale, Phenergan with codeine 5 mL p.o. q.4 hours p.r.n., Tylenol, Zofran 4 mg IV q.6 hours, Zosyn 2.25 g IV q.8 hours. LABORATORY DATA: Other laboratory data; urine cultures as of 07/21/2017; positive for E. coli and sensitive to all antibiotics. Other laboratory data as of 07/24/2017; chest x-ray; impression: Moderate venous congestion, right hilar prominence and consolidation and mild patchy left basilar opacity. X-ray of the pelvis as of 07/24/2017; impression: Intrauterine device noted within the pelvis. Lippes Loop intrauterine device identified, left parasagittal pelvis. Other laboratory data as of 07/25/2017; WBC 6.7, hemoglobin 7.7, hematocrit is 23.9 and platelets 175. Sodium is 127, potassium is 4.5, chloride 99, CO2 of 18, BUN 39, creatinine 2.5, glucose 148, calcium is 7.0, phosphorus is 5.3 and magnesium is 2.1. Total bili 0.5, AST 13, ALT 24, alkaline phosphatase 77, total protein 5.7. Urinalysis; yellow clear, pH 5, specific gravity 1.011, protein 2+, glucose 1+, ketones negative, blood 1+, nitrites negative, bilirubin negative, leukocyte esterase 3+, wbc 42, rbc 1. Serum immunofixation is pending. Echocardiogram as of 07/17/2017; impression: Left ventricular ejection fraction is within normal range of 55% and there is [id number] concentric LVH, left ventricular function is normal. Normal LV systolic function, type 2 diastolic dysfunction, elevated LA pressure. There is mild tricuspid valve regurgitation noted. Estimated PA systolic pressure is 45 mmHg. Mild aortic stenosis. ASSESSMENT: In summary, Mrs. Hillman is a 81 years old elderly female with history of hypertension, diabetes, was admitted with shortness of breath and with a creatinine of 1.0 on admission 07/17/2017. Subsequently, the patient was treated for congestive heart failure on admission and also underwent cardiac cath, subsequently her creatinine went up to 2.5 and also being treated for urinary tract infection and pneumonia. 1. Renal failure, nonoliguric acute renal failure, most likely secondary to acute tubular necrosis, secondary to contrast nephropathy in the setting of prerenal azotemia and also urinary tract infection. 2. Anemia secondary to iron-deficiency anemia and also slow gastrointestinal loss, rule out underlying malignancy. 3. Congestive heart failure. 4. Pneumonia. PLAN: Continue IV Ferrlecit and continue to monitor BMP. Consider Lasix p.r.n. for CHF. No need for any renal replacement therapy at this time. We will continue to monitor and we will follow with you. Thank you for allowing me to participate in your patient's care. Continue IV antibiotics as per ID recommendations. Chuck Figueredo MD
[2017-07-26] MEDS: (Novolin R) Insulin Human Regular 100 units/ml vial SC SCH ×4 (08:20→22:03)
[2017-07-26 09:01] LABS: CHLORIDE URINE 17 mmol/L (32-290)
[2017-07-26 09:11] LABS: BASO % 0.7 % (0.0-2.0); EOS # 0.1 K/uL (0.0-0.7); EOS % 2.1 % (0.0-4.0); HEMATOCRIT 24.8 % (34.0-47.0); LYMPH # 1.4 K/uL (1.0-4.3); LYMPH % 21.7 % (20.0-40.0); MEAN CELL VOLUME 77.9 fL (81.0-99.0); MEAN CORPUSCULAR HEMOGLOBIN 25.1 pg (27.0-31.0); MEAN CORPUSCULAR HGB CONC 32.1 g/dL (33.0-37.0); MEAN PLATELET VOLUME 8.5 fL (7.2-11.7); MONO # 0.7 K/uL (0.0-0.8); MONO % 11.2 % (0.0-10.0); NRBC % 0.1 % (0.0-2.0); RED CELL DISTRIBUTION WIDTH 18.7 % (11.5-14.5); WHITE BLOOD COUNT 6.4 K/uL (4.8-10.8)
--- NOTE | 2017-07-26 09:21 | CP.PCM.PN ---
<Tina Dasilva - Last Filed: 07/26/17 17:51> Subjective - Date & Time of Evaluation Date of Evaluation: 07/26/17 Time of Evaluation: 07:00 - Subjective Subjective: Patient was seen and examined at bedside in the AM. Per nurse the patient had 3 episodes of watery stool with no blood. Patient denies vomiting. Patient states she still feels nauseated. Patient denies shortness of breath, chest pain, or palpitations. Objective - Vital Signs/Intake and Output Vital Signs (last 24 hours): Temp Pulse Resp BP Pulse Ox 98.0 F 73 20 158/71 H 96 07/26/17 08:41 07/26/17 08:41 07/26/17 08:41 07/26/17 08:41 07/26/17 08:41 Intake and Output: 07/26/17 07/26/17 06:59 18:59 Intake Total 250 Output Total 400 Balance -150 - Medications Medications: Current Medications Acetaminophen (Tylenol 325mg Tab) 650 mg PO Q6 PRN PRN Reason: Pain, moderate (4-7) Last Admin: 07/22/17 12:38 Dose: 650 mg Albuterol/Ipratropium (Duoneb 3 Mg/0.5 Mg (3 Ml) Ud) 3 ml INH RQ6 [facility] Last Admin: 07/26/17 07:30 Dose: Not Given Aspirin (Aspirin Chewable) 81 mg PO DAILY [facility] Last Admin: 07/25/17 09:49 Dose: 81 mg Carvedilol (Coreg) 6.25 mg PO BID [facility] Last Admin: 07/25/17 17:30 Dose: 6.25 mg Ferric Sodium Gluconate Complex (Ferrlecit) 125 mg IVPB DAILY [facility] Stop: 07/29/17 10:01 Last Admin: 07/25/17 09:47 Dose: 125 mg Gabapentin (Neurontin) 100 mg PO TID [facility] Last Admin: 07/25/17 17:30 Dose: 100 mg Heparin Sodium (Porcine) (Heparin) 5,000 units SC Q8 [facility] Last Admin: 07/26/17 05:38 Dose: 5,000 units Hydralazine HCl (Apresoline) 10 mg IVP Q6H PRN PRN Reason: Systolic Blood Pressure Last Admin: 07/20/17 11:39 Dose: 10 mg Hydralazine HCl (Apresoline) 100 mg PO Q8H [facility] Last Admin: 07/26/17 04:56 Dose: 100 mg Piperacillin Sod/Tazobactam Sod (Zosyn 2.25 Gm Iv Premix) 2.25 gm in 50 mls @ 100 mls/hr IVPB Q8H [facility] Last Admin: 07/26/17 00:31 Dose: 100 mls/hr Azithromycin 500 mg/ Sodium (Chloride) 250 mls @ 250 mls/hr IVPB DAILY@2100 [facility] Last Admin: 07/25/17 21:15 Dose: 250 mls/hr Insulin Human Regular (Novolin R) 0 unit SC ACHS [facility] PRN Reason: Protocol Last Admin: 07/26/17 08:20 Dose: Not Given Nitroglycerin (Nitro-Bid 2% Oint) 1 ea TOP Q6H PRN PRN Reason: Pain, severe (8-10) Ondansetron HCl (Zofran Inj) 4 mg IVP Q6 PRN PRN Reason: Nausea/Vomiting Promethazine HCl/Codeine (Phenergan/Codeine Oral Syrup) 5 ml PO Q4 PRN PRN Reason: Cough Rosuvastatin Calcium (Crestor) 10 mg PO HS [facility] Last Admin: 07/25/17 21:31 Dose: 10 mg - Labs Labs: 07/26/17 08:57 07/25/17 07:46 PT 11.6 SECONDS (9.7-12.2) 07/20/17 18:03 INR 1.0 07/20/17 18:03 APTT 40 SECONDS (21-34) H D 07/21/17 01:27 - Constitutional Appears: No Acute Distress - Head Exam Head Exam: ATRAUMATIC, NORMAL INSPECTION - Eye Exam Eye Exam: EOMI, Normal appearance - ENT Exam ENT Exam: Mucous Membranes Moist - Respiratory Exam Respiratory Exam: Clear to Ausculation Bilateral, NORMAL BREATHING PATTERN. absent: Rales, Rhonchi, Wheezes, Stridor - Cardiovascular Exam Cardiovascular Exam: REGULAR RHYTHM, RRR, +S1, +S2 - GI/Abdominal Exam GI & Abdominal Exam: Soft, Tenderness (RLQ tenderness ), Normal Bowel Sounds - Extremities Exam Extremities Exam: Normal Inspection. absent: Pedal Edema, Tenderness - Neurological Exam Neurological Exam: Alert, Awake, Oriented x3 - Psychiatric Exam Psychiatric exam: Normal Affect, Normal Mood - Skin Skin Exam: Dry, Intact, Normal Color, Warm Assessment and Plan - Assessment and Plan (Free Text) Assessment: 1.) Dyspnea on exertion secondary to CHF vs. Pneumonia Cardio Consult: Dr. Pearl --> help appreciated - Echo (07/17/17):Grade II diastolic dysfunction; EF 55% - Chest X-ray (07/24): Moderate venous congestion; right hilar prominence and consolidation; mild patchy left basilar opacity. - f/u Strep pneumonia urine - Legionella urine: Negative - Mycoplasma IgM: Negative - Zosyn started 07/24 - Duonebs PRN shortness of breath 2.) Diastolic CHF (Type II) Cardio Consult: Dr. Pearl --> help appreciated - Echo (07/17/17):Grade II diastolic dysfunction; EF 55% - Chest X-ray (07/24): Moderate venous congestion; right hilar prominence and consolidation; mild patchy left basilar opacity. - EUGENIA (07/20/2017) Showed 0.184 inc. to 0.196 and began down-trending - EKG (07/20/17) NSR - Lipid panel -WNL - Stress Test (07/20/17) - Showed defect possibly representing ischemia - Cardiac Cath (07/21/17) - Angiographically normal coronaries and normal LV systolic function Medications: * Lasix 40 IV BID discontinued secondary to JACQUES * Crestor 10 PO HS * Aldactone 25 PO BID discontinued secondary to JACQUES * Lisinopril 40 PO QD discontinued secondary to JACQUES * Added Coreg 3.125 BID per Cardio * Added Duonebs per Cardio * Added Nitropaste per Cardio. 3.) JACQUES Likely secondary to medications and dye from cardiac cath Nephro consult: Dr. Najera --> help appreciated - urine sodium 32, urine osmolality 241(low), urine creatinine 65.6 - f/u urine chloride - Serum osmolality 302 - Renal US 07/23 - mild increased echogenicity of the bilateral renal parenchymal cortices suggestive for medical renal disease (please see full report) - Chest X-ray (07/24): Moderate venous congestion; right hilar prominence and consolidation; mild patchy left basilar opacity. - Discussed with Dr. Figueredo: Discontinue Lisinopril, aldactone and lasix 4.) UTI (urinary tract infection) - First UA contaminated - Repeat UA shows trace Leuk Es. - Urine Culture- E.Coli sensitive to all antibiotics tested Antibiotics: * Azithromycin 500mg started on 07/25 * Zosyn started 07/24 5.) Stool Occult Blood Positive GI consult: Dr. Negron --> help appreciated - CEA 2.2 - CA125: 120 (high) - CA19-9: 23 - F/U stool for C diff, stool culture, leukocytes, ova and parasites 6.) Diarrhea GI consult: Dr. Negron --> help appreciated - Abd/Pelvis CT: Small bilateral pleural effusions and associated consolidations. No visible pneumothorax. Partially imaged cardiomegaly. Small hiatal hernia/ distal esophageal wall thickening. Nodular hepatic contour ; correlate clinically for cirrhosis. Punctate hepatic calcification, right inferior lobe. Heterogeneous hepatic parenchyma, particularly within the left lower lobe. If indicated, suggest further evaluation with dedicated liver CT. Gallbladder wall thickening/pericholecystic edema. Correlate clinically. Suggest right upper quadrant ultrasound. Fluid within the small and large bowel ; correlate for diarrheal illness. Diverticulum of the proximal duodenum. Scattered diverticulosis without CT evidence of acute diverticulitis. Thickened urinary bladder wall atrophy portion to level of underdistention. Recommend correlation with urinalysis. Coarse uterine calcifications. Trace fluid within the pericolic gutters. - Floraster - Metronidazole 500mg PO q8h - F/U stool for C diff, stool culture, leukocytes, ova and parasites 7.) Chronic Leg Pain - Bilateral Venous Doppler (07/25/17): Negative for DVT - Venous doppler (07/17/17)- NEGATIVE for DVT - Gabapentin 100mg PO TID 8.) Microcytic Anemia Hematology consult: Dr. Sullivan --> help appreciated - Ferous Sulfate 325 BID - Stool occult blood positive - f/u Immunofixation, protein electrophoresis - Free [place]: 81.8 - Free Lambda: 41.9 - [place]/Lambda: 1.95 9.) Abdominal Pain possibly secondary to uterine fibroids DENTAL LABORATORY ASSISTANT Consult: Dr. Lozoya --> help appreciated - Transvaginal US showed fibroids but did not identify IUD - CA125: 120 (high) - Outpatient [facility] follow for possible IUD and uterine fibroids 10.) History Hypertension Medications: * Lisinopril 40mg PO QD discontinued secondary to JACQUES * Lasix 40 IV BID discontinued secondary to JACQUES * Coreg 3.125 BID per Cardio * Hydralazine 25 PO QID [facility]--> increased to hydralazine 100mg PO TID * Nitropaste 11.) History of Diabetes - HgBA1c = 7.4 - ISS High - Accuchecks 12.) Prophylactic measure - Heparin 5000U SC Q8 - Zofran 4mg IVP Q6PRN - Ambulate <Ventura Mittal - Last Filed: 08/09/17 15:38> Objective - Vital Signs/Intake and Output Vital Signs (last 24 hours): Temp Pulse Resp BP Pulse Ox 99.2 F 85 20 134/52 L 96 08/06/17 09:31 08/06/17 09:31 08/06/17 09:31 08/06/17 09:33 08/06/17 09:31 - Labs Labs: 08/06/17 06:11 08/06/17 06:11 PT 11.6 SECONDS (9.7-12.2) 07/20/17 18:03 INR 1.0 07/20/17 18:03 APTT 40 SECONDS (21-34) H D 07/21/17 01:27 Attending/Attestation - Attestation I have personally seen and examined this patient.: Yes I have fully participated in the care of the patient.: Yes I have reviewed all pertinent clinical information, including history, physical exam and plan: Yes Notes (Text): Dyspnea on exertion due to Acute Diastolic CHF likely Hypertension Constipation Outpatient follow up re fibroids/IUD?(says inserted long time ago)
[2017-07-26 10:09] LABS: ALB/GLOB RATIO 1.1 (1.0-2.1); BILIRUBIN,TOTAL 0.5 mg/dL (0.2-1.3); CALCIUM 7.2 mg/dl (8.6-10.4); MAGNESIUM 2.4 mg/dL (1.6-2.3); PHOSPHOROUS 6.4 mg/dL (2.5-4.5); POTASSIUM 4.2 mmol/L (3.6-5.2); TOTAL PROTEIN 6.1 g/dL (6.3-8.3)
[2017-07-26] MEDS: Ferric Sodium Gluconat Complex 62.5 mg/5 ml Vial IVPB SCH (10:47)
--- NOTE | 2017-07-26 12:08 | VASCLAB ---
STUDY DESCRIPTION: HISTORY: lower extremity tenderness PRIORS: None. TECHNIQUE: Pulse volume recording waveforms and segmental pressures of bilateral lower extremities at multiple levels were obtained. Ankle Brachial Indices (ABIs) were calculated. Report prepared by DREW Sánchez, RVT RIGHT LOWER EXTREMITY: * Brachial artery: Pressure - 150 mmHg. * High thigh: Pressure - mmHg: Ratio - : PVR waveform - Pulsatile * Low thigh: Pressure - mmHg: Ratio - PVR waveform: Pulsatile * Calf: Pressure - 176 mmHg: Ratio - 1.15 PVR waveform: Pulsatile * Posterior tibial Artery: Pressure - 130 mmHg: Ratio - 0.85 PVR waveform: Pulsatile * Dorsalis pedis Artery: Pressure - 150 mmHg: Ratio - 0.98 PVR waveform: Pulsatile * Great toe: Pressure - mmHg: Ratio - PVR waveform: Ankle brachial index (LUCY): 0.98 LEFT LOWER EXTREMITY: * Brachial artery: Pressure - 153 mmHg. * High thigh: Pressure - mmHg: Ratio - : PVR waveform - Pulsatile * Low thigh: Pressure - mmHg: Ratio - PVR waveform: Pulsatile * Calf: Pressure - 197 mmHg: Ratio - 1.29 PVR waveform: Pulsatile * Posterior tibial Artery: Pressure - 141 mmHg: Ratio - 0.92 PVR waveform: Pulsatile * Dorsalis pedis Artery: Pressure - 176 mmHg: Ratio - 1.15 PVR waveform: Pulsatile * Great toe: Pressure - mmHg: Ratio - PVR waveform: Ankle brachial index (LUCY): 1.15 OTHER FINDINGS: Right: Left: IMPRESSION: Right: There was no evidence of hemodynamically significant arterial insufficiency in the right lower extremity. Left: There was no evidence of hemodynamically significant arterial insufficiency in the left lower extremity.
[2017-07-26] MEDS ORDERED: Iohexol 240 (50 ml) PO ONE (12:30)
--- NOTE | 2017-07-26 14:07 | CP.PCM.PN ---
Subjective - Date & Time of Evaluation Date of Evaluation: 07/26/17 Time of Evaluation: 13:00 - Subjective Subjective: No complaints. Objective - Vital Signs/Intake and Output Vital Signs (last 24 hours): Temp Pulse Resp BP Pulse Ox 98.0 F 75 20 122/53 L 96 07/26/17 08:41 07/26/17 12:59 07/26/17 08:41 07/26/17 12:59 07/26/17 08:41 Intake and Output: 07/26/17 07/26/17 06:59 18:59 Intake Total 250 Output Total 400 Balance -150 - Medications Medications: Current Medications Acetaminophen (Tylenol 325mg Tab) 650 mg PO Q6 PRN PRN Reason: Pain, moderate (4-7) Last Admin: 07/22/17 12:38 Dose: 650 mg Albuterol/Ipratropium (Duoneb 3 Mg/0.5 Mg (3 Ml) Ud) 3 ml INH RQ6 [facility] Last Admin: 07/26/17 13:20 Dose: Not Given Aspirin (Aspirin Chewable) 81 mg PO DAILY [facility] Last Admin: 07/26/17 10:46 Dose: 81 mg Carvedilol (Coreg) 6.25 mg PO BID [facility] Last Admin: 07/26/17 10:46 Dose: 6.25 mg Ferric Sodium Gluconate Complex (Ferrlecit) 125 mg IVPB DAILY [facility] Stop: 07/29/17 10:01 Last Admin: 07/26/17 10:47 Dose: 125 mg Gabapentin (Neurontin) 100 mg PO TID [facility] Last Admin: 07/26/17 13:00 Dose: 100 mg Heparin Sodium (Porcine) (Heparin) 5,000 units SC Q8 [facility] Last Admin: 07/26/17 13:03 Dose: 5,000 units Hydralazine HCl (Apresoline) 10 mg IVP Q6H PRN PRN Reason: Systolic Blood Pressure Last Admin: 07/20/17 11:39 Dose: 10 mg Hydralazine HCl (Apresoline) 100 mg PO Q8H [facility] Last Admin: 07/26/17 13:30 Dose: Not Given Piperacillin Sod/Tazobactam Sod (Zosyn 2.25 Gm Iv Premix) 2.25 gm in 50 mls @ 100 mls/hr IVPB Q8H [facility] Last Admin: 07/26/17 09:58 Dose: 100 mls/hr Azithromycin 500 mg/ Sodium (Chloride) 250 mls @ 250 mls/hr IVPB DAILY@2100 [facility] Last Admin: 07/25/17 21:15 Dose: 250 mls/hr Insulin Human Regular (Novolin R) 0 unit SC ACHS [facility] PRN Reason: Protocol Last Admin: 07/26/17 12:17 Dose: Not Given Metronidazole (Flagyl) 250 mg PO Q8 [facility] Nitroglycerin (Nitro-Bid 2% Oint) 1 ea TOP Q6H PRN PRN Reason: Pain, severe (8-10) Ondansetron HCl (Zofran Inj) 4 mg IVP Q6 PRN PRN Reason: Nausea/Vomiting Last Admin: 07/26/17 09:58 Dose: 4 mg Promethazine HCl/Codeine (Phenergan/Codeine Oral Syrup) 5 ml PO Q4 PRN PRN Reason: Cough Rosuvastatin Calcium (Crestor) 10 mg PO HS [facility] Last Admin: 07/25/17 21:31 Dose: 10 mg Saccharomyces Boulardii (Florastor) 250 mg PO DAILY [facility] - Labs Labs: 07/26/17 08:57 07/26/17 08:57 PT 11.6 SECONDS (9.7-12.2) 07/20/17 18:03 INR 1.0 07/20/17 18:03 APTT 40 SECONDS (21-34) H D 07/21/17 01:27 - Head Exam Head Exam: ATRAUMATIC - Eye Exam Eye Exam: Normal appearance - ENT Exam ENT Exam: Mucous Membranes Dry - Respiratory Exam Respiratory Exam: NORMAL BREATHING PATTERN - Cardiovascular Exam Cardiovascular Exam: +S1, +S2 - GI/Abdominal Exam GI & Abdominal Exam: Normal Bowel Sounds Assessment and Plan (1) Anemia Assessment & Plan: hypoproliferative erythroid response responding to IV iron element of anemia of CKD; s/p Procrit monoclonal protein w/u sent hemoglobinopathy evaluation suggestive of alpha thalassemia trait Status: Acute (2) Elevated CA-125 Assessment & Plan: recommend pelvic ultrasound may be elevated from peritoneal irritation for volume overload Status: Acute
[2017-07-26] MEDS: Saccharomyces Boulardi 250 mg Cap PO SCH (14:45)
--- NOTE | 2017-07-26 14:56 | CT ---
PROCEDURE: CT Abdomen and Pelvis without Oral or IV contrast. HISTORY: stool occult blood COMPARISON: None available. TECHNIQUE: Contiguous axial images of the abdomen and pelvis. No oral or IV contrast administered. Coronal and Sagittal reformats generated and reviewed. Radiation dose: Total exam DLP = 1011.39 mGy-cm. This CT exam was performed using one or more of the following dose reduction techniques: Automated exposure control, adjustment of the mA and/or kV according to patient size, and/or use of iterative reconstruction technique. FINDINGS: There is limited evaluation of the solid organs without the administration of IV contrast. LOWER THORAX: Small bilateral pleural effusions and associated consolidations. No visible pneumothorax. Partially imaged cardiomegaly. Small hiatal hernia/ distal esophageal wall thickening. LIVER: Nodular hepatic contour. Heterogeneous hepatic parenchyma. Punctate hepatic calcification, right inferior lobe. GALLBLADDER AND BILE DUCTS: Gallbladder wall thickening/pericholecystic edema. PANCREAS: Pancreatic atrophy. SPLEEN: Unremarkable unenhanced appearance. ADRENALS: Unremarkable unenhanced appearance. KIDNEYS AND URETERS: No hydronephrosis or obstructing renal calculus. BLADDER: Thick-walled urinary bladder out of proportion to under distension. REPRODUCTIVE: Uterus is present. Coarse uterine calcifications. APPENDIX: The presumed appendix appears within normal limits of caliber. No secondary signs of acute appendicitis. BOWEL: The stomach is nondistended. Lack of oral contrast limits evaluation for bowel pathology. Fluid within the small and large bowel ; correlate for diarrheal illness. The bowel loops appear within normal limits of caliber without evidence of intestinal obstruction. Diverticulum of the proximal duodenum. Scattered diverticulosis without CT evidence of acute diverticulitis. PERITONEUM: Trace fluid within the pericolic gutters. No definite free air. LYMPH NODES: No bulky lymphadenopathy identified. VASCULATURE: Atherosclerotic calcifications. No aortic aneurysm. BONES: Osseous demineralization. Degenerative changes. OTHER FINDINGS: None. IMPRESSION: Small bilateral pleural effusions and associated consolidations. No visible pneumothorax. Partially imaged cardiomegaly. Small hiatal hernia/ distal esophageal wall thickening. Nodular hepatic contour ; correlate clinically for cirrhosis. Punctate hepatic calcification, right inferior lobe. Heterogeneous hepatic parenchyma, particularly within the left lower lobe. If indicated, suggest further evaluation with dedicated liver CT. Gallbladder wall thickening/pericholecystic edema. Correlate clinically. Suggest right upper quadrant ultrasound. Fluid within the small and large bowel ; correlate for diarrheal illness. Diverticulum of the proximal duodenum. Scattered diverticulosis without CT evidence of acute diverticulitis. Thickened urinary bladder wall atrophy portion to level of underdistention. Recommend correlation with urinalysis. Coarse uterine calcifications. Trace fluid within the pericolic gutters. Additional incidental findings as above.
[2017-07-26] MEDS: Azithromycin 500 MG in Sodium Chloride 0.9% 250 ML IVPB SCH (22:00)
[2017-07-27] MEDS: Piperacill/Tazo 2.25gm in Dex 2.25 GM/50 ML BAG IVPB SCH ×3 (01:00→17:44)
[2017-07-27] MEDS: Albuterol-Ipratrop 3 mg / 0.5 (3 ml) UD INH SCH ×4 (01:44→20:01)
--- NOTE | 2017-07-27 06:53 | CP.PCM.PN ---
<Tina Dasilva - Last Filed: 07/27/17 12:43> Subjective - Date & Time of Evaluation Date of Evaluation: 07/27/17 Time of Evaluation: 07:00 - Subjective Subjective: Patient was seen and examined at bedside in the AM. Per nurse patient did not have any episodes of diarrhea overnight. Patient denies shortness of breath, chest pain, itching, diarrhea, nausea or vomiting. Objective - Vital Signs/Intake and Output Vital Signs (last 24 hours): Temp Pulse Resp BP Pulse Ox 98 F 72 20 145/65 98 07/27/17 04:41 07/27/17 04:41 07/27/17 04:41 07/27/17 04:41 07/27/17 04:41 Intake and Output: 07/26/17 07/27/17 18:59 06:59 Intake Total 450 350 Balance 450 350 - Medications Medications: Current Medications Acetaminophen (Tylenol 325mg Tab) 650 mg PO Q6 PRN PRN Reason: Pain, moderate (4-7) Last Admin: 07/22/17 12:38 Dose: 650 mg Albuterol/Ipratropium (Duoneb 3 Mg/0.5 Mg (3 Ml) Ud) 3 ml INH RQ6 [facility] Last Admin: 07/27/17 01:44 Dose: Not Given Aspirin (Aspirin Chewable) 81 mg PO DAILY [facility] Last Admin: 07/26/17 10:46 Dose: 81 mg Carvedilol (Coreg) 6.25 mg PO BID [facility] Last Admin: 07/26/17 18:01 Dose: 6.25 mg Ferric Sodium Gluconate Complex (Ferrlecit) 125 mg IVPB DAILY [facility] Stop: 07/29/17 10:01 Last Admin: 07/26/17 10:47 Dose: 125 mg Gabapentin (Neurontin) 100 mg PO TID [facility] Last Admin: 07/26/17 18:01 Dose: 100 mg Heparin Sodium (Porcine) (Heparin) 5,000 units SC Q8 [facility] Last Admin: 07/27/17 05:28 Dose: 5,000 units Hydralazine HCl (Apresoline) 10 mg IVP Q6H PRN PRN Reason: Systolic Blood Pressure Last Admin: 07/20/17 11:39 Dose: 10 mg Hydralazine HCl (Apresoline) 100 mg PO Q8H [facility] Last Admin: 07/27/17 04:42 Dose: 100 mg Piperacillin Sod/Tazobactam Sod (Zosyn 2.25 Gm Iv Premix) 2.25 gm in 50 mls @ 100 mls/hr IVPB Q8H [facility] Last Admin: 07/27/17 01:00 Dose: 100 mls/hr Azithromycin 500 mg/ Sodium (Chloride) 250 mls @ 250 mls/hr IVPB DAILY@2100 [facility] Last Admin: 07/26/17 22:00 Dose: 250 mls/hr Insulin Human Regular (Novolin R) 0 unit SC ACHS [facility] PRN Reason: Protocol Last Admin: 07/26/17 22:03 Dose: Not Given Metronidazole (Flagyl) 500 mg PO Q8 [facility] Last Admin: 07/27/17 05:28 Dose: 500 mg Nitroglycerin (Nitro-Bid 2% Oint) 1 ea TOP Q6H PRN PRN Reason: Pain, severe (8-10) Ondansetron HCl (Zofran Inj) 4 mg IVP Q6 PRN PRN Reason: Nausea/Vomiting Last Admin: 07/26/17 09:58 Dose: 4 mg Promethazine HCl/Codeine (Phenergan/Codeine Oral Syrup) 5 ml PO Q4 PRN PRN Reason: Cough Rosuvastatin Calcium (Crestor) 10 mg PO HS [facility] Last Admin: 07/26/17 22:03 Dose: 10 mg Saccharomyces Boulardii (Florastor) 250 mg PO DAILY [facility] Last Admin: 07/26/17 14:45 Dose: 250 mg - Labs Labs: 07/26/17 08:57 07/26/17 08:57 PT 11.6 SECONDS (9.7-12.2) 07/20/17 18:03 INR 1.0 07/20/17 18:03 APTT 40 SECONDS (21-34) H D 07/21/17 01:27 - Constitutional Appears: No Acute Distress - Head Exam Head Exam: ATRAUMATIC, NORMAL INSPECTION - Eye Exam Eye Exam: EOMI, Normal appearance - ENT Exam ENT Exam: Mucous Membranes Moist - Respiratory Exam Respiratory Exam: Clear to Ausculation Bilateral, NORMAL BREATHING PATTERN - Cardiovascular Exam Cardiovascular Exam: REGULAR RHYTHM, RRR, +S1, +S2 - GI/Abdominal Exam GI & Abdominal Exam: Soft, Tenderness (LLQ tenderness), Normal Bowel Sounds - Extremities Exam Extremities Exam: Normal Inspection, Tenderness (chronic tenderness ). absent: Pedal Edema - Neurological Exam Neurological Exam: Alert, Awake - Psychiatric Exam Psychiatric exam: Flat Affect - Skin Skin Exam: Rash (macular papular rash on right side of the back and flank, and right lower abdomen.) Assessment and Plan - Assessment and Plan (Free Text) Assessment: 1.) Dyspnea on exertion secondary to CHF vs. Pneumonia Cardio Consult: Dr. Pearl --> help appreciated - Echo (07/17/17):Grade II diastolic dysfunction; EF 55% - Chest X-ray (07/24): Moderate venous congestion; right hilar prominence and consolidation; mild patchy left basilar opacity. - f/u Strep pneumonia urine - Legionella urine: Negative - Mycoplasma IgM: Negative - Zosyn started 07/24 - Duonebs PRN shortness of breath 2.) Diastolic CHF (Type II) Cardio Consult: Dr. Pearl --> help appreciated - Echo (07/17/17):Grade II diastolic dysfunction; EF 55% - Chest X-ray (07/24): Moderate venous congestion; right hilar prominence and consolidation; mild patchy left basilar opacity. - EUGENIA (07/20/2017) Showed 0.184 inc. to 0.196 and began down-trending - EKG (07/20/17) NSR - Lipid panel -WNL - Stress Test (07/20/17) - Showed defect possibly representing ischemia - Cardiac Cath (07/21/17) - Angiographically normal coronaries and normal LV systolic function Medications: * Lasix 40 IV BID discontinued secondary to JACQUES * Crestor 10 PO HS * Aldactone 25 PO BID discontinued secondary to JACQUES * Lisinopril 40 PO QD discontinued secondary to JACQUES * Added Coreg 3.125 BID per Cardio * Added Duonebs per Cardio * Added Nitropaste per Cardio. 3.) JACQUES Likely secondary to medications and dye from cardiac cath Nephro consult: Dr. Najera --> help appreciated - urine sodium 32, urine osmolality 241(low), urine creatinine 65.6 - f/u urine chloride - Serum osmolality 302 - Renal US 07/23 - mild increased echogenicity of the bilateral renal parenchymal cortices suggestive for medical renal disease (please see full report) - Chest X-ray (07/24): Moderate venous congestion; right hilar prominence and consolidation; mild patchy left basilar opacity. - Discussed with Dr. Figueredo: Discontinue Lisinopril, aldactone and lasix - Bladder scan PRN - f/u Esosinophils in urine 4.) UTI (urinary tract infection) - First UA contaminated - Repeat UA shows trace Leuk Es. - Urine Culture- E.Coli sensitive to all antibiotics tested Antibiotics: * Azithromycin 500mg started on 07/25 * Zosyn started 07/24 5.) Stool Occult Blood Positive GI consult: Dr. Negron --> help appreciated - CEA 2.2 - CA125: 120 (high) - CA19-9: 23 - F/U stool for C diff, stool culture, leukocytes, ova and parasites - f/u Barium Enema to be done 07/29/17 6.) Diarrhea GI consult: Dr. Negron --> help appreciated - Abd/Pelvis CT: Small bilateral pleural effusions and associated consolidations. No visible pneumothorax. Partially imaged cardiomegaly. Small hiatal hernia/ distal esophageal wall thickening. Nodular hepatic contour ; correlate clinically for cirrhosis. Punctate hepatic calcification, right inferior lobe. Heterogeneous hepatic parenchyma, particularly within the left lower lobe. If indicated, suggest further evaluation with dedicated liver CT. Gallbladder wall thickening/pericholecystic edema. Correlate clinically. Suggest right upper quadrant ultrasound. Fluid within the small and large bowel ; correlate for diarrheal illness. Diverticulum of the proximal duodenum. Scattered diverticulosis without CT evidence of acute diverticulitis. Thickened urinary bladder wall atrophy portion to level of underdistention. Recommend correlation with urinalysis. Coarse uterine calcifications. Trace fluid within the pericolic gutters. - Floraster - Metronidazole 500mg PO q8h - F/U stool for C diff, stool culture, leukocytes, ova and parasites 7.) Chronic Leg Pain - Bilateral Venous Doppler (07/25/17): Negative for DVT - Venous doppler (07/17/17)- NEGATIVE for DVT - Gabapentin 100mg PO TID 8.) Microcytic Anemia Hematology consult: Dr. Sullivan --> help appreciated - Ferous Sulfate 325 BID - Stool occult blood positive - f/u Immunofixation, protein electrophoresis - Free Bandera: 81.8 - Free Lambda: 41.9 - Bandera/Lambda: 1.95 9.) Abdominal Pain possibly secondary to uterine fibroids [employer] SPECIALIST Consult: Dr. Lozoya --> help appreciated - Transvaginal US showed fibroids but did not identify IUD - CA125: 120 (high) - Outpatient [employer] follow for possible IUD and uterine fibroids 10.) History Hypertension Medications: * Lisinopril 40mg PO QD discontinued secondary to JACQUES * Lasix 40 IV BID discontinued secondary to JACQUES * Coreg 3.125 BID per Cardio * Hydralazine 25 PO QID [facility]--> increased to hydralazine 100mg PO TID * Nitropaste 11.) History of Diabetes - HgBA1c = 7.4 - ISS High - Accuchecks 12.) Rash - Benadryl one time dose - Solu-medrol 40mg one time dose - Monitor 13.) Prophylactic measure - Heparin 5000U SC Q8 - Zofran 4mg IVP Q6PRN - Ambulate Case discussed with Dr. Faustina Dasilva PGY-1 <Kate Weems V - Last Filed: 07/27/17 17:09> Objective - Vital Signs/Intake and Output Vital Signs (last 24 hours): Temp Pulse Resp BP Pulse Ox 98.1 F 77 20 173/76 H 96 07/27/17 16:00 07/27/17 16:00 07/27/17 16:00 07/27/17 16:00 07/27/17 16:00 Intake and Output: 07/27/17 07/27/17 06:59 18:59 Intake Total 350 600 Output Total 350 Balance 350 250 - Medications Medications: Current Medications Acetaminophen (Tylenol 325mg Tab) 650 mg PO Q6 PRN PRN Reason: Pain, moderate (4-7) Last Admin: 07/22/17 12:38 Dose: 650 mg Albuterol/Ipratropium (Duoneb 3 Mg/0.5 Mg (3 Ml) Ud) 3 ml INH RQ6 [facility] Last Admin: 07/27/17 13:18 Dose: Not Given Aspirin (Aspirin Chewable) 81 mg PO DAILY [facility] Last Admin: 07/27/17 10:05 Dose: 81 mg Bisacodyl (Dulcolax) 5 mg PO ONCE ONE Stop: 07/27/17 16:34 Bisacodyl (Dulcolax) 5 mg PO ONCE ONE Stop: 07/28/17 09:01 [facility] Carvedilol (Coreg) 6.25 mg PO BID [facility] Last Admin: 07/27/17 10:05 Dose: 6.25 mg Ferric Sodium Gluconate Complex (Ferrlecit) 125 mg IVPB DAILY [facility] Stop: 07/29/17 10:01 Last Admin: 07/27/17 10:12 Dose: 125 mg Gabapentin (Neurontin) 100 mg PO TID [facility] Last Admin: 07/27/17 13:39 Dose: 100 mg Heparin Sodium (Porcine) (Heparin) 5,000 units SC Q8 [facility] Last Admin: 07/27/17 13:37 Dose: 5,000 units Hydralazine HCl (Apresoline) 10 mg IVP Q6H PRN PRN Reason: Systolic Blood Pressure Last Admin: 07/20/17 11:39 Dose: 10 mg Hydralazine HCl (Apresoline) 100 mg PO Q8H [facility] Last Admin: 07/27/17 13:28 Dose: 100 mg Piperacillin Sod/Tazobactam Sod (Zosyn 2.25 Gm Iv Premix) 2.25 gm in 50 mls @ 100 mls/hr IVPB Q8H [facility] Last Admin: 07/27/17 13:09 Dose: 100 mls/hr Azithromycin 500 mg/ Sodium (Chloride) 250 mls @ 250 mls/hr IVPB DAILY@2100 [facility] Last Admin: 07/26/17 22:00 Dose: 250 mls/hr Insulin Human Regular (Novolin R) 0 unit SC ACHS [facility] PRN Reason: Protocol Last Admin: 07/27/17 13:40 Dose: 2 unit Metronidazole (Flagyl) 500 mg PO Q8 [facility] Last Admin: 07/27/17 13:47 Dose: 500 mg Nitroglycerin (Nitro-Bid 2% Oint) 1 ea TOP Q6H PRN PRN Reason: Pain, severe (8-10) Ondansetron HCl (Zofran Inj) 4 mg IVP Q6 PRN PRN Reason: Nausea/Vomiting Last Admin: 07/26/17 09:58 Dose: 4 mg Promethazine HCl/Codeine (Phenergan/Codeine Oral Syrup) 5 ml PO Q4 PRN PRN Reason: Cough Rosuvastatin Calcium (Crestor) 10 mg PO [facility] Last Admin: 07/26/17 22:03 Dose: 10 mg Saccharomyces Boulardii (Florastor) 250 mg PO DAILY [facility] Last Admin: 07/27/17 10:05 Dose: 250 mg - Labs Labs: 07/27/17 06:53 07/27/17 06:53 PT 11.6 SECONDS (9.7-12.2) 07/20/17 18:03 INR 1.0 07/20/17 18:03 APTT 40 SECONDS (21-34) H D 07/21/17 01:27 Attending/Attestation - Attestation I have personally seen and examined this patient.: Yes I have fully participated in the care of the patient.: Yes I have reviewed all pertinent clinical information, including history, physical exam and plan: Yes Notes (Text): Patient seen, examined and case discussed with day-time resident. Per nursing staff, no episodes of diarrhea. Patient noted to have allergic reaction likely to Flagyl which was recently started. no oropharyneal involvement. Patient given stat doses of Benadryl and Solumderol IV. Allergic reaction noted over right lower quadrant. Negative Plummer's sign given CT abdomen/Pelvis Patient reports she is urinating. Bladder scan performed 300cc urine retained. patient was straight cath. Pending urine culture and urine eosinophils. Cedric-inhibitor/lasix/aldactone held previously. Patient to have Barium enema on Tuesday with radiology. Vitamin D is low, Phosphorous is high. Calcium low. Albumin: 3.3. Patient started Phoslo 667mg PO tidcc given elevated phosphorous levels. Assessment/Plan 1) Allergic Reaction * Likely secondary to Flagyl; started yesterday * Given Benadryl 25mg IV and Solumderol 40mg IV X1, no oropharygneal involvement ; itchiness over the right lower quadrant with skin rash noted * Monitor 2) Dyspnea on exertion 2/2 to Diastolic CHF (Type II) * Likely 2/2 to new onset CHF * Cardio Dr. Pearl Consult - recs appreciated * Echo - shows Grade II diastolic dysfunction. * CXR - Moderate pulm venous congestion * CXR (07/24): moderate venous congestion, Right hilar prominence and consolidation. Mild patchy left basilar opacity, Trace left pleural effusion. tortuous ectatic aorta, cardiomegaly. * EUGENIA NEGATIVE x3 * EKG (07/20/17) NSR. * Lipid panel -WNL * Stress Test (07/20/17) - Showed defect possibly representing ischemia * Cardiac Cath (07/21/17) - Angiographically normal coronaries and normal LV systolic function Meds: * Lasix 40mg IV BID on hold secondary to JACQUES on 07/23 * Crestor 10mg PO HS * Aldactone 25 PO BID on hold secondary to JACQUES on 07/23 * Lisinopril 40 PO QD on hold secondary to JACQUES on 07/23 * start Coreg 6.25mg BID per Cardio 3) Pneumonia * CXR (07/24): moderate venous congestion, Right hilar prominence and consolidation. Mild patchy left basilar opacity, Trace left pleural effusion. tortuous ectatic aorta, cardiomegaly. * Start Renal dose Zosyn 2.25 IV Q 8 H and Azithromycin 500mg IV q daily * Duonebs PRN shortness of breath * Promethazine w codeine 5 ml PO Q 4H PRn cough * Order for Strep pneumonia urine, Legionella urine: negative and Mycoplasma IgM : negative 4) Urinary Tract Infection * 07/18 contaminated * 07/21 E. Coli * Completed 2nd dose of Rocephin; changed to Zosyn 2.25 g IVPB Q8H (active since 07/24/17) * 07/25 Urine culture: no growth 5) JACQUES * Nephrology consult - Dr. Aniya Najera - help appreciated * urine sodium 32, urine osmolality 241(low), urine creatinine 65.6, Serum osmolality 302 * Renal US 07/23/17 - mild increased echogenicity of the bilateral renal parenchymal cortices suggestive for medical renal disease (please see full report) * Holding lisinopril, aldactone and lasix until 07/25/17 to assess affect on creatinine * Urine culture: E. Coli * c/w Zosyn 2.25 g IVPB Q8H (active since 07/24/17) * Repeat urine culture: no growth * pending urine esoinophil * Bladder scan: 300 cc urinary retention 07/27-->needed to be straight cath today; no mcintosh 6) Microcytic Anemia * [place]lecity 125mg IVPB daily (07/21-07/29) * Stool occult blood positive * Hematology consult - Dr. Sullivan - help appreciated * hypoproliferative erythroid response * responding to IV iron * element of anemia of CKD; s/p Procrit * monoclonal protein w/u sent * hemoglobinopathy evaluation sen * GI consult - Dr. Negron - help appreciated * CEA: 2.2 * CA 19-9: 23.0 * Elevated CA 125: 120 * Barium enema for 07/29/17 7) Stool Occult Blood * GI consult - Dr. Negron - help appreciated * CEA 2.2 * F/U barium enema for Tuesday * F/U stool for C diff, stool culture, leukocytes, ova and parasites--Pending * Patient reports loose stool; on IV abx for UTI 8) Elevated CA 125; Fibroid * TV US showed fibroids but did not identify IUD * Elevated CA 125 * Ob-[employer]IST hospitalist service consulted-->help appreciated * per Dr. Yu's note "It was explained to the patient, IUD is confirmed. It was also explained to the patient, attempts at removing the IUD will most likely require examination under anesthesia. In addition, patient would have to be consented for possible surgery including but not limited to exploratory laparotomy and the possible complications that may develop. Patient expressed an understanding and does not desire to proceed with attempt at removing her IUD. Patient stated on several occasions, that the IUD has caused her problems over the past 40 years" * Patient is clinically stable from their standpoint 9) Leg pain * Venous doppler: negative * Arterial doppler: negative * Gabapentin 100mg PO TID 10) Hypertension * Coreg 6.25mg PO BID * Hydralazine 10mg IV Q 6HR SBP >160 * Hydralazine 100mg PO Q8H 11) Diabetes * HgBA1c = 7.4 * ISS High * Accuchecks QAC and HS 12) Diarrhea * GI (Dr. Negron) on board-->help appreciated * CT Abdomen/Pelvis (07/26/17): small bilateral pleural effusions and associated consolidations. No visble pneumothorax. Partial imaged cardiomeglay. Nodular hepatic continur. Punctate hapetic calcification, right inferior lobe. Gallbladder wall thickening/pericholecystic edema. Fluid within small and large bowel. scatter diverticulosis without CT evidence of acute diverticulitis. Thickened urinary bladder wall atrophy portion to level of underdistention. coarse uterine calcifications * Pending Barium enema for Tuesday 13) Prophylactic measure * Heparin 5000U SC Q8H * Ambulate * Zofran 4mg IVP Q6 PRN nausea
[2017-07-27] MEDS ORDERED: DiphenhydrAMINE 50 mg/ml Inj IVP ONE (07:04)
[2017-07-27 07:26] LABS: BETA 1 GLOBULIN 0.4 g/dL (0.4-0.6); BETA 2 GLOBULIN 0.3 g/dL (0.2-0.5); GAMMA GLOBULIN 1.2 g/dL (0.8-1.7)
[2017-07-27 07:38] LABS: BASO % 0.6 % (0.0-2.0); EOS # 0.1 K/uL (0.0-0.7); HEMATOCRIT 25.2 % (34.0-47.0); LYMPH # 1.1 K/uL (1.0-4.3); LYMPH % 13.8 % (20.0-40.0); MEAN CELL VOLUME 78.1 fL (81.0-99.0); MEAN PLATELET VOLUME 8.3 fL (7.2-11.7); MONO # 0.6 K/uL (0.0-0.8); MONO % 7.2 % (0.0-10.0); NRBC % 0.1 % (0.0-2.0); RED CELL DISTRIBUTION WIDTH 18.3 % (11.5-14.5); WHITE BLOOD COUNT 7.9 K/uL (4.8-10.8)
[2017-07-27 07:47] LABS: ALB/GLOB RATIO 0.8 (1.0-2.1); BILIRUBIN,TOTAL 0.3 mg/dL (0.2-1.3); CALCIUM 7.1 mg/dl (8.6-10.4); MAGNESIUM 2.4 mg/dL (1.6-2.3); PHOSPHOROUS 7.2 mg/dL (2.5-4.5); POTASSIUM 4.1 mmol/L (3.6-5.2); TOTAL PROTEIN 7.1 g/dL (6.3-8.3)
[2017-07-27] MEDS: (Novolin R) Insulin Human Regular 100 units/ml vial SC SCH ×4 (08:45→22:05)
[2017-07-27] MEDS: Saccharomyces Boulardi 250 mg Cap PO SCH (10:05)
[2017-07-27] MEDS: Ferric Sodium Gluconat Complex 62.5 mg/5 ml Vial IVPB SCH (10:12)
[2017-07-27] MEDS ORDERED: MethylPREDNISolone 40 mg Vial IVP STA (10:16)
[2017-07-27 13:58] LABS: ANA TITER 1:40
[2017-07-27] MEDS ORDERED: Bisacodyl 5mg EC Tab PO ONE (16:33)
--- NOTE | 2017-07-27 18:02 | CP.PCM.PN ---
Subjective - Date & Time of Evaluation Date of Evaluation: 07/27/17 Time of Evaluation: 18:02 - Subjective Subjective: pt is seen and examined, follow up consult is dictated #[id number] 1. JACQUES 2. UTI 3. s/p cardiac cath check u/a, f/u urine for eosinophils Objective - Vital Signs/Intake and Output Vital Signs (last 24 hours): Temp Pulse Resp BP Pulse Ox 98.1 F 77 20 173/76 H 96 07/27/17 16:00 07/27/17 16:00 07/27/17 16:00 07/27/17 16:00 07/27/17 16:00 Intake and Output: 07/27/17 07/27/17 06:59 18:59 Intake Total 350 600 Output Total 350 Balance 350 250 - Medications Medications: Current Medications Acetaminophen (Tylenol 325mg Tab) 650 mg PO Q6 PRN PRN Reason: Pain, moderate (4-7) Last Admin: 07/22/17 12:38 Dose: 650 mg Albuterol/Ipratropium (Duoneb 3 Mg/0.5 Mg (3 Ml) Ud) 3 ml INH RQ6 [facility] Last Admin: 07/27/17 13:18 Dose: Not Given Aspirin (Aspirin Chewable) 81 mg PO DAILY [facility] Last Admin: 07/27/17 10:05 Dose: 81 mg Bisacodyl (Dulcolax) 5 mg PO ONCE ONE Stop: 07/28/17 09:01 Calcium Acetate (Phoslo) 667 mg PO BIDCC [facility] Last Admin: 07/27/17 17:44 Dose: 667 mg Carvedilol (Coreg) 6.25 mg PO BID [facility] Last Admin: 07/27/17 17:42 Dose: 6.25 mg Ferric Sodium Gluconate Complex (Ferrlecit) 125 mg IVPB DAILY [facility] Stop: 07/29/17 10:01 Last Admin: 07/27/17 10:12 Dose: 125 mg Gabapentin (Neurontin) 100 mg PO TID [facility] Last Admin: 07/27/17 17:43 Dose: 100 mg Heparin Sodium (Porcine) (Heparin) 5,000 units SC Q8 [facility] Last Admin: 07/27/17 13:37 Dose: 5,000 units Hydralazine HCl (Apresoline) 10 mg IVP Q6H PRN PRN Reason: Systolic Blood Pressure Last Admin: 07/20/17 11:39 Dose: 10 mg Hydralazine HCl (Apresoline) 100 mg PO Q8H [facility] Last Admin: 07/27/17 13:28 Dose: 100 mg Piperacillin Sod/Tazobactam Sod (Zosyn 2.25 Gm Iv Premix) 2.25 gm in 50 mls @ 100 mls/hr IVPB Q8H [facility] Last Admin: 07/27/17 17:44 Dose: 100 mls/hr Azithromycin 500 mg/ Sodium (Chloride) 250 mls @ 250 mls/hr IVPB DAILY@2100 [facility] Last Admin: 07/26/17 22:00 Dose: 250 mls/hr Insulin Human Regular (Novolin R) 0 unit SC ACHS [facility] PRN Reason: Protocol Last Admin: 07/27/17 17:43 Dose: 6 unit Metronidazole (Flagyl) 500 mg PO Q8 [facility] Last Admin: 07/27/17 13:47 Dose: 500 mg Nitroglycerin (Nitro-Bid 2% Oint) 1 ea TOP Q6H PRN PRN Reason: Pain, severe (8-10) Ondansetron HCl (Zofran Inj) 4 mg IVP Q6 PRN PRN Reason: Nausea/Vomiting Last Admin: 07/26/17 09:58 Dose: 4 mg Promethazine HCl/Codeine (Phenergan/Codeine Oral Syrup) 5 ml PO Q4 PRN PRN Reason: Cough Rosuvastatin Calcium (Crestor) 10 mg PO HS [facility] Last Admin: 07/26/17 22:03 Dose: 10 mg Saccharomyces Boulardii (Florastor) 250 mg PO DAILY [facility] Last Admin: 07/27/17 10:05 Dose: 250 mg - Labs Labs: 07/27/17 06:53 07/27/17 06:53 PT 11.6 SECONDS (9.7-12.2) 07/20/17 18:03 INR 1.0 07/20/17 18:03 APTT 40 SECONDS (21-34) H D 07/21/17 01:27
--- NOTE | 2017-07-27 19:57 | US ---
EXAM: US Abdomen Limited, Right Upper Quadrant CLINICAL HISTORY: 81 years old, female; Abnormal findings; Abnormal radiologic finding of the abdomen; Radiologic exam and body structure: Abnormal CT finding TECHNIQUE: Real-time ultrasound of the right upper quadrant with image documentation. COMPARISON: CT - ABD PELVIS W/O PO OR IV CONT 2017-07-26 14:09 FINDINGS: Liver: Lobulated contour. Fatty infiltration. Small calcification. No intrahepatic ductal dilatation. Gallbladder: Gallstones. No wall thickening. No pericholecystic fluid. No sonographic Plummer's sign. Common bile duct: No dilatation. No stones. Pancreas: Unremarkable as visualized. Right kidney: Normal echogenicity. No hydronephrosis. Pleural space: RIGHT pleural effusion. IMPRESSION: 1. Cholelithiasis. 2. Cirrhosis without fatty infiltration. 3. Incidental/non-acute findings are described above.
[2017-07-27] MEDS ORDERED: DiphenhydrAMINE 50 mg/ml Inj IVP STA (21:27)
[2017-07-27] MEDS: Azithromycin 500 MG in Sodium Chloride 0.9% 250 ML IVPB SCH (22:06)
--- NOTE | 2017-07-27 22:37 | PN ---
FOLLOWUP RENAL CONSULTATION LOCATION: The patient is located in room #669, bed B. REASON FOR RENAL FOLLOWUP: Acute renal failure. SUBJECTIVE: Ms. Hillman is a 81-year-old elderly female with a history of longstanding hypertension, type 2 diabetes, who was admitted with shortness of breath and subsequently underwent cardiac cath and also found to have a worsening renal function and CHF, being treated for pneumonia and UTI. The patient is not in any distress, complains of feeling dizzy today. No chest pain. No palpitation. No fever. No cough. No abdominal pain. No nausea or vomiting. OBJECTIVE: GENERAL: Ms. Hillman is a 81-year-old elderly female, moderately built, moderately nourished, not in any distress. VITAL SIGNS: Blood pressure 173/76, pulse 77, respirations 20, temperature 98.1, saturation 96%, height 5 feet 2 inches, and weight is 163 pounds. HEENT: Pupils are normal and reactive to light and accommodation. Conjunctivae are pink. Sclerae are anicteric. Tongue is moist. Trachea is midline. LUNGS: Symmetric on both sides. Bilateral breath sounds present. ABDOMEN: Soft, tympanic. No guarding. No rigidity. No hepatosplenomegaly. HOME COORDINATOR: The patient is alert, awake, oriented x3. Nonfocal neuro examination. Cranial nerves II through XII grossly intact. Sensory and motor system are within normal limits. LABORATORY DATA: Include as of 07/26/2017, CT of the abdomen and pelvis without p.o. or IV contrast. Impression is small bilateral pleural effusion as well as consolidation, no visual pneumothorax, partially imaged cardiomegaly, small hiatal hernia, distal esophagus wall thickening, nodular hepatic contour, correlate clinically for cirrhosis, punctate hepatic calcification, right inferior lobe, heterogenous hepatic parenchyma particularly within the left lower lobe, if indicated suggest further evaluation with a dedicated liver CT, gallbladder wall thickening, pericholecystic edema, correlate clinically, suggest right upper quadrant ultrasound, fluid within the small and large bowel, correlate further diarrheal illness, diverticulum of the proximal duodenum, scattered diverticulosis throughout without CT evidence of acute diverticulitis, thickened urinary bladder wall, atrophy portion to level of under distention, recommended correlation with urinalysis, coarse uterine calcification, trace fluid within the paracolic gutters. Chest x-ray as of 07/24/2017, findings, moderate venous congestion, right hilar prominence and consolidation, mild patchy left basilar opacity, question trace left pleural effusion, tortuous ectatic aorta, cardiomegaly. Other laboratory data as of 07/27/2017, WBC 7.9, hemoglobin 8.1, hematocrit 25.2, MCV 78.1, sodium 130, potassium 4.1, chloride 103, CO2 16, BUN 43, creatinine 3.4, glucose is 133, calcium 7.1, phosphorus 7.2, magnesium 2.4, total bilirubin 0.3, AST 24, ALT 30, alkaline phosphatase is 85, total protein 7.1, albumin is 3.3, and vitamin D level is less than 12.8. ASSESSMENT AND PLAN: In summary, Ms. Hillman is a 81-year-old elderly female with a history of longstanding diabetes, hypertension, was admitted with shortness of breath, status post cardiac cath, and also being treated for urinary tract infection, pneumonia, and congestive heart failure with increased BUN and creatinine. 1. Nonoliguric acute renal failure, most likely secondary to urinary tract infection and secondary to contrast-induced nephropathy. Cannot rule out secondary to urosepsis. 2. Hypertension. Blood pressure is slightly high. Continue her current medications. Hydralazine 100 mg and also Coreg 6.25 mg p.o. b.i.d. and titrate Coreg as needed. Continue her current medications, Zosyn, Flagyl, and azithromycin. Follow up BMP daily. We will follow with you. We will repeat urinalysis and follow up urine eosinophils. Chuck Figueredo MD
[2017-07-28] MEDS: Piperacill/Tazo 2.25gm in Dex 2.25 GM/50 ML BAG IVPB SCH ×2 (00:53→08:49)
[2017-07-28] MEDS: Albuterol-Ipratrop 3 mg / 0.5 (3 ml) UD INH SCH ×4 (01:21→20:11)
[2017-07-28 07:25] LABS: BASO % 0.3 % (0.0-2.0); EOS % 0.2 % (0.0-4.0); HEMATOCRIT 24.6 % (34.0-47.0); LYMPH # 1.4 K/uL (1.0-4.3); LYMPH % 16.1 % (20.0-40.0); MEAN CELL VOLUME 77.7 fL (81.0-99.0); MEAN CORPUSCULAR HEMOGLOBIN 25.5 pg (27.0-31.0); MEAN CORPUSCULAR HGB CONC 32.8 g/dL (33.0-37.0); MEAN PLATELET VOLUME 7.9 fL (7.2-11.7); MONO # 0.7 K/uL (0.0-0.8); MONO % 8.7 % (0.0-10.0); NRBC % 0.1 % (0.0-2.0); RED CELL DISTRIBUTION WIDTH 22.1 % (11.5-14.5); WHITE BLOOD COUNT 8.5 K/uL (4.8-10.8)
--- NOTE | 2017-07-28 07:25 | CP.PCM.PN ---
<Kate Weems V - Last Filed: 07/28/17 14:41> Objective - Vital Signs/Intake and Output Vital Signs (last 24 hours): Temp Pulse Resp BP Pulse Ox 97.5 F L 78 20 143/72 99 07/28/17 08:00 07/28/17 12:55 07/28/17 08:00 07/28/17 12:55 07/28/17 08:00 Intake and Output: 07/28/17 07/28/17 06:59 18:59 Intake Total 50 Balance 50 - Medications Medications: Current Medications Acetaminophen (Tylenol 325mg Tab) 650 mg PO Q6 PRN PRN Reason: Pain, moderate (4-7) Last Admin: 07/22/17 12:38 Dose: 650 mg Albuterol/Ipratropium (Duoneb 3 Mg/0.5 Mg (3 Ml) Ud) 3 ml INH RQ6 [facility] Last Admin: 07/28/17 13:44 Dose: 3 ml Aspirin (Aspirin Chewable) 81 mg PO DAILY [facility] Last Admin: 07/28/17 10:44 Dose: 81 mg Calcium Acetate (Phoslo) 667 mg PO TID [facility] Carvedilol (Coreg) 6.25 mg PO BID [facility] Last Admin: 07/28/17 10:44 Dose: 6.25 mg Diphenhydramine HCl (Benadryl) 25 mg IVP Q6H [facility] Stop: 07/29/17 03:01 Famotidine (Pepcid) 20 mg IVP STAT STA Stop: 07/28/17 14:39 Famotidine (Pepcid) 20 mg IVP DAILY [facility] Ferric Sodium Gluconate Complex (Ferrlecit) 125 mg IVPB DAILY [facility] Stop: 07/29/17 10:01 Last Admin: 07/28/17 10:44 Dose: 125 mg Gabapentin (Neurontin) 100 mg PO TID [facility] Last Admin: 07/28/17 10:44 Dose: 100 mg Heparin Sodium (Porcine) (Heparin) 5,000 units SC Q8 [facility] Last Admin: 07/28/17 05:47 Dose: 5,000 units Hydralazine HCl (Apresoline) 10 mg IVP Q6H PRN PRN Reason: Systolic Blood Pressure Last Admin: 07/20/17 11:39 Dose: 10 mg Hydralazine HCl (Apresoline) 100 mg PO Q8H [facility] Last Admin: 07/28/17 12:56 Dose: 100 mg Piperacillin Sod/Tazobactam Sod (Zosyn 2.25 Gm Iv Premix) 2.25 gm in 50 mls @ 100 mls/hr IVPB Q8H [facility] Last Admin: 07/28/17 08:49 Dose: 100 mls/hr Azithromycin 500 mg/ Sodium (Chloride) 250 mls @ 250 mls/hr IVPB DAILY@2100 [facility] Last Admin: 07/27/17 22:06 Dose: 250 mls/hr Insulin Human Regular (Novolin R) 0 unit SC ACHS [facility] PRN Reason: Protocol Last Admin: 07/28/17 12:55 Dose: 4 unit Methylprednisolone (Solu-Medrol) 40 mg IVP Q8H [facility] Stop: 07/29/17 06:46 Nitroglycerin (Nitro-Bid 2% Oint) 1 ea TOP Q6H PRN PRN Reason: Pain, severe (8-10) Ondansetron HCl (Zofran Inj) 4 mg IVP Q6 PRN PRN Reason: Nausea/Vomiting Last Admin: 07/26/17 09:58 Dose: 4 mg Promethazine HCl/Codeine (Phenergan/Codeine Oral Syrup) 5 ml PO Q4 PRN PRN Reason: Cough Rosuvastatin Calcium (Crestor) 10 mg PO HS [facility] Last Admin: 07/27/17 22:08 Dose: 10 mg Saccharomyces Boulardii (Florastor) 250 mg PO DAILY [facility] Last Admin: 07/28/17 10:44 Dose: 250 mg - Labs Labs: 07/28/17 07:17 07/28/17 07:17 PT 11.6 SECONDS (9.7-12.2) 07/20/17 18:03 INR 1.0 07/20/17 18:03 APTT 40 SECONDS (21-34) H D 07/21/17 01:27 Assessment and Plan - Assessment and Plan (Free Text) Assessment: Patient seen, examined and case discussed with day-time resident. Per nursing staff, no episodes of diarrhea. Patient noted to have allergic reaction likely to Flagyl which was recently started. no oropharyneal involvement. Rash spread to chest, abdomen, legs. Discontinue IV abx see if improves or not. Benadryl, Solumedrol, and Pepcid IV for one day. No oropharynegal involvement. Will stop IV abx to see if rash improves. Will need to follow-up with nephrology; patient has urinary retention (2nd day) urine eosinophils negative. Cedric-inhibitor/lasix/aldactone held previously. Patient to have Barium enema on Tuesday with radiology. Vitamin D is low, Phosphorous is high. Calcium low. Albumin: 3.3. Patient started Phoslo 667mg PO tidcc yesterday. Will f/u nephrology Assessment/Plan 1) Allergic Reaction * Likely secondary to Flagyl (newest medication) * Given Benadryl 25mg IV and Solumderol 40mg IV X1 yesterday; no oropharygneal involvement; itchiness over the right lower quadrant with skin rash noted; rash spread to chest, abdomen, back, flat, macular rash * Will stop Zosyn/Azithromycin today-->not suspecting Rocephin/Zosyn given patient did not have rash. * Monitor 2) Dyspnea on exertion 2/2 to Diastolic CHF (Type II) * Likely 2/2 to new onset CHF * Cardio Dr. Pearl Consult - recs appreciated * Echo - shows Grade II diastolic dysfunction. * CXR - Moderate pulm venous congestion * CXR (07/24): moderate venous congestion, Right hilar prominence and consolidation. Mild patchy left basilar opacity, Trace left pleural effusion. tortuous ectatic aorta, cardiomegaly. * EUGENIA NEGATIVE x3 * EKG (07/20/17) NSR. * Lipid panel -WNL * Stress Test (07/20/17) - Showed defect possibly representing ischemia * Cardiac Cath (07/21/17) - Angiographically normal coronaries and normal LV systolic function Meds: * Lasix 40mg IV BID on hold secondary to JACQUES on 07/23 * Crestor 10mg PO HS * Aldactone 25 PO BID on hold secondary to JACQUES on 07/23 * Lisinopril 40 PO QD on hold secondary to JACQUES on 07/23 * start Coreg 6.25mg BID per Cardio 3) Pneumonia * CXR (07/24): moderate venous congestion, Right hilar prominence and consolidation. Mild patchy left basilar opacity, Trace left pleural effusion. tortuous ectatic aorta, cardiomegaly. * Start Renal dose Zosyn 2.25 IV Q 8 H and Azithromycin 500mg IV q daily * Duonebs PRN shortness of breath * Promethazine w codeine 5 ml PO Q 4H PRn cough * Order for Strep pneumonia urine, Legionella urine: negative and Mycoplasma IgM : negative 4) Urinary Tract Infection * 07/18 contaminated * 07/21 E. Coli * Completed 2nd dose of Rocephin; changed to Zosyn 2.25 g IVPB Q8H (active since 07/24/17) * 07/25 Urine culture: no growth * urine eosinophil: negative 5) JACQUES * Nephrology consult - Dr. Aniya Najera - help appreciated * urine sodium 32, urine osmolality 241(low), urine creatinine 65.6, Serum osmolality 302 * Renal US 07/23/17 - mild increased echogenicity of the bilateral renal parenchymal cortices suggestive for medical renal disease (please see full report) * Holding lisinopril, aldactone and lasix until 07/25/17 to assess affect on creatinine * Urine culture: E. Coli * stop Zosyn 2.25 g IVPB Q8H (active since 07/24/17) on 07/28/17 * Repeat urine culture: no growth * urine eosinophil: negative * Bladder scan: 300 cc urinary retention 07/27-->needed to be straight cath today; no mcintosh * Bladder scan: 900 cc urinary retention 07/28-->needed to be straight cath; will need to let nephrology know 6) Microcytic Anemia * Ferrlecit 125mg IVPB daily (07/21-07/29) * Stool occult blood positiv * Hematology consult - Dr. Sullivan - help appreciated * hypoproliferative erythroid response * responding to IV iron * element of anemia of CKD; s/p Procrit * monoclonal protein w/u sent * hemoglobinopathy evaluation sen * GI consult - Dr. Negron - kiersten appreciated * CEA: 2.2 * CA 19-9: 23.0 * Elevated CA 125: 120 * Barium enema for 07/29/17 7) Stool Occult Blood * GI consult - Dr. 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 Yu's note "It was explained to the patient, IUD is confirmed. It was also explained to the patient, attempts at removing the IUD will most likely require examination under anesthesia. In addition, patient would have to be consented for possible surgery including but not limited to exploratory laparotomy and the possible complications that may develop. Patient expressed an understanding and does not desire to proceed with attempt at removing her IUD. Patient stated on several occasions, that the IUD has caused her problems over the past 40 years" * Patient is clinically stable from their standpoint 9) Leg pain * Venous doppler: negative * Arterial doppler: negative * Gabapentin 100mg PO TID 10) Hypertension * Coreg 6.25mg PO BID * Hydralazine 10mg IV Q 6HR SBP >160 * Hydralazine 100mg PO Q8H 11) Diabetes * HgBA1c = 7.4 * ISS High * Accuchecks QAC and HS 12) Diarrhea * GI (Dr. Negron) on board-->help appreciated * CT Abdomen/Pelvis (07/26/17): small bilateral pleural effusions and associated consolidations. No visble pneumothorax. Partial imaged cardiomeglay. Nodular hepatic continur. Punctate hapetic calcification, right inferior lobe. Gallbladder wall thickening/pericholecystic edema. Fluid within small and large bowel. scatter diverticulosis without CT evidence of acute diverticulitis. Thickened urinary bladder wall atrophy portion to level of underdistention. coarse uterine calcifications * Resolved for the past two days * Pending Barium enema for Tuesday 13) Prophylactic measure * Heparin 5000U SC Q8H * Ambulate * Zofran 4mg IVP Q6 PRN nausea * pepcid 20mg IV qdaily Disposition: * Patient had allergic reaction secondary to IV abx. Suspected to Flagyl. Will stop all IV Abx. Patient is Benadryl IV, Solumedrol IV, and Pepcid IV. No oropharygneal involvement * Patient hasn't had diarrhea for two days. * Urinary retention for the past two days with electrolyte abnormalities; will follow-up with nephrology <Tina Dasilva - Last Filed: 07/28/17 17:03> Subjective - Date & Time of Evaluation Date of Evaluation: 07/28/17 Time of Evaluation: 07:00 - Subjective Subjective: Patient was seen and examined at bedside in the AM. Patient states she has not had any more diarrhea episodes. She also states she has not urinated yet this morning. Patient states her skin is itching on her abdomen and back. Patient denies shortness of breath, fever, nausea or vomiting. Objective - Vital Signs/Intake and Output Vital Signs (last 24 hours): Temp Pulse Resp BP Pulse Ox 98.1 F 70 20 149/66 96 07/28/17 00:25 07/28/17 05:57 07/28/17 00:25 07/28/17 05:57 07/28/17 00:25 Intake and Output: 07/28/17 07/28/17 06:59 18:59 Intake Total 50 Balance 50 - Medications Medications: Current Medications Acetaminophen (Tylenol 325mg Tab) 650 mg PO Q6 PRN PRN Reason: Pain, moderate (4-7) Last Admin: 07/22/17 12:38 Dose: 650 mg Albuterol/Ipratropium (Duoneb 3 Mg/0.5 Mg (3 Ml) Ud) 3 ml INH RQ6 [facility] Last Admin: 07/28/17 01:21 Dose: Not Given Aspirin (Aspirin Chewable) 81 mg PO DAILY [facility] Last Admin: 07/27/17 10:05 Dose: 81 mg Bisacodyl (Dulcolax) 5 mg PO ONCE ONE Stop: 07/28/17 09:01 [facility] ([facility]) [facility] Last Admin: 07/27/17 17:44 Dose: 667 mg Carvedilol (Coreg) 6.25 mg PO BID [facility] Last Admin: 07/27/17 17:42 Dose: 6.25 mg Ferric Sodium Gluconate Complex (Ferrlecit) 125 mg IVPB DAILY [facility] Stop: 07/29/17 10:01 Last Admin: 07/27/17 10:12 Dose: 125 mg Gabapentin (Neurontin) 100 mg PO TID [facility] Last Admin: 07/27/17 17:43 Dose: 100 mg Heparin Sodium (Porcine) (Heparin) 5,000 units SC Q8 [facility] Last Admin: 07/28/17 05:47 Dose: 5,000 units Hydralazine HCl (Apresoline) 10 mg IVP Q6H PRN PRN Reason: Systolic Blood Pressure Last Admin: 07/20/17 11:39 Dose: 10 mg Hydralazine HCl (Apresoline) 100 mg PO Q8H [facility] Last Admin: 07/28/17 05:44 Dose: 100 mg Piperacillin Sod/Tazobactam Sod (Zosyn 2.25 Gm Iv Premix) 2.25 gm in 50 mls @ 100 mls/hr IVPB Q8H [facility] Last Admin: 07/28/17 00:53 Dose: 100 mls/hr Azithromycin 500 mg/ Sodium (Chloride) 250 mls @ 250 mls/hr IVPB DAILY@2100 [facility] Last Admin: 07/27/17 22:06 Dose: 250 mls/hr Insulin Human Regular (Novolin R) 0 unit SC ACHS [facility] PRN Reason: Protocol Last Admin: 07/27/17 22:05 Dose: Not Given Metronidazole (Flagyl) 500 mg PO Q8 [facility] Last Admin: 07/28/17 05:47 Dose: 500 mg Nitroglycerin (Nitro-Bid 2% Oint) 1 ea TOP Q6H PRN PRN Reason: Pain, severe (8-10) Ondansetron HCl (Zofran Inj) 4 mg IVP Q6 PRN PRN Reason: Nausea/Vomiting Last Admin: 07/26/17 09:58 Dose: 4 mg Promethazine HCl/Codeine (Phenergan/Codeine Oral Syrup) 5 ml PO Q4 PRN PRN Reason: Cough Rosuvastatin Calcium (Crestor) 10 mg PO HS [facility] Last Admin: 07/27/17 22:08 Dose: 10 mg Saccharomyces Boulardii (Florastor) 250 mg PO DAILY [facility] Last Admin: 07/27/17 10:05 Dose: 250 mg - Labs Labs: 07/27/17 06:53 07/27/17 06:53 PT 11.6 SECONDS (9.7-12.2) 07/20/17 18:03 INR 1.0 07/20/17 18:03 APTT 40 SECONDS (21-34) H D 07/21/17 01:27 - Constitutional Appears: No Acute Distress - Head Exam Head Exam: ATRAUMATIC, NORMAL INSPECTION - Eye Exam Eye Exam: EOMI, Normal appearance - ENT Exam ENT Exam: Mucous Membranes Moist - Respiratory Exam Respiratory Exam: Clear to Ausculation Bilateral, NORMAL BREATHING PATTERN - Cardiovascular Exam Cardiovascular Exam: REGULAR RHYTHM, RRR, +S1, +S2 - GI/Abdominal Exam GI & Abdominal Exam: Soft, Tenderness (chronic LLQ tenderness ), Normal Bowel Sounds - Neurological Exam Neurological Exam: Alert, Awake - Psychiatric Exam Psychiatric exam: Normal Affect, Normal Mood - Skin Skin Exam: Rash (macular papular rash on the back mostly on the right side, chest, and right lower abdomen ) Assessment and Plan - Assessment and Plan (Free Text) Assessment: 1.) Dyspnea on exertion secondary to CHF vs. Pneumonia Cardio Consult: Dr. eParl --> help appreciated - Echo (07/17/17):Grade II diastolic dysfunction; EF 55% - Chest X-ray (07/24): Moderate venous congestion; right hilar prominence and consolidation; mild patchy left basilar opacity. - f/u Strep pneumonia urine - Legionella urine: Negative - Mycoplasma IgM: Negative - Zosyn started 07/24 - discontinued 07/28/17 - Duonebs PRN shortness of breath 2.) Diastolic CHF (Type II) Cardio Consult: Dr. Pearl --> help appreciated - Echo (07/17/17):Grade II diastolic dysfunction; EF 55% - Chest X-ray (07/24): Moderate venous congestion; right hilar prominence and consolidation; mild patchy left basilar opacity. - EUGENIA (07/20/2017) Showed 0.184 inc. to 0.196 and began down-trending - EKG (07/20/17) NSR - Lipid panel -WNL - Stress Test (07/20/17) - Showed defect possibly representing ischemia - Cardiac Cath (07/21/17) - Angiographically normal coronaries and normal LV systolic function Medications: * Lasix 40 IV BID discontinued secondary to JACQUES * Crestor 10 PO HS * Aldactone 25 PO BID discontinued secondary to JACQUES * Lisinopril 40 PO QD discontinued secondary to JACQUES * Added Coreg 3.125 BID per Cardio * Added Duonebs per Cardio * Added Nitropaste per Cardio. 3.) JACQUES Likely secondary to medications and dye from cardiac cath Nephro consult: Dr. Najera --> help appreciated - urine sodium 32, urine osmolality 241(low), urine creatinine 65.6 - f/u urine chloride - Serum osmolality 302 - Renal US 07/23 - mild increased echogenicity of the bilateral renal parenchymal cortices suggestive for medical renal disease (please see full report) - Chest X-ray (07/24): Moderate venous congestion; right hilar prominence and consolidation; mild patchy left basilar opacity. - Discussed with Dr. Figueredo: Discontinue Lisinopril, aldactone and lasix - Spoke with Dr. Figueredo: patient is retaining urine- he stated to continue straight cath - Urine output in the AM of 07/28/17: 450cc - Esosinophils in urine: Negative 4.) UTI (urinary tract infection) - First UA contaminated - Repeat UA shows trace Leuk Es. - Urine Culture- E.Coli sensitive to all antibiotics tested Antibiotics: * Azithromycin 500mg started on 07/25 * Zosyn started 07/24 5.) Stool Occult Blood Positive GI consult: Dr. Negron --> help appreciated - CEA 2.2 - CA125: 120 (high) - CA19-9: 23 - F/U stool for C diff, stool culture, leukocytes, ova and parasites - f/u Barium Enema to be done 07/29/17 6.) Diarrhea GI consult: Dr. Negron --> help appreciated - Abd/Pelvis CT: Small bilateral pleural effusions and associated consolidations. No visible pneumothorax. Partially imaged cardiomegaly. Small hiatal hernia/ distal esophageal wall thickening. Nodular hepatic contour ; correlate clinically for cirrhosis. Punctate hepatic calcification, right inferior lobe. Heterogeneous hepatic parenchyma, particularly within the left lower lobe. If indicated, suggest further evaluation with dedicated liver CT. Gallbladder wall thickening/pericholecystic edema. Correlate clinically. Suggest right upper quadrant ultrasound. Fluid within the small and large bowel ; correlate for diarrheal illness. Diverticulum of the proximal duodenum. Scattered diverticulosis without CT evidence of acute diverticulitis. Thickened urinary bladder wall atrophy portion to level of underdistention. Recommend correlation with urinalysis. Coarse uterine calcifications. Trace fluid within the pericolic gutters. - Floraster - Metronidazole 500mg PO q8h - discontinued 07/28/17 - F/U stool for C diff, stool culture, leukocytes, ova and parasites 7.) Chronic Leg Pain - Bilateral Venous Doppler (07/25/17): Negative for DVT - Venous doppler (07/17/17)- NEGATIVE for DVT - Gabapentin 100mg PO TID 8.) Microcytic Anemia Hematology consult: Dr. 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 Lozoya --> help appreciated - Transvaginal US showed fibroids but did not identify IUD - CA125: 120 (high) - Outpatient SOFTWARE RELEASE MANAGER follow for possible IUD and uterine fibroids 10.) History Hypertension Medications: * Lisinopril 40mg PO QD discontinued secondary to JACQUES * Lasix 40 IV BID discontinued secondary to JACQUES * Coreg 3.125 BID per Cardio * Hydralazine 25 PO QID KAZ--> increased to hydralazine 100mg PO TID * Nitropaste 11.) History of Diabetes - HgBA1c = 7.4 - ISS High - Accuchecks 12.) Rash possibly secondary to ABs - All antibiotics discontinued 07/28/17 - Benadryl 25mg IV PRN - Monitor 13.) Hyperphosphotemia - likely secondary to JACQUES - Spoke with Dr. Figueredo to continue Phoslo 667mg but change to TID 14.) Prophylactic measure - Heparin 5000U SC Q8 - Zofran 4mg IVP Q6PRN - Pepcid 20mg PO daily - Ambulate Case discussed with Dr. Faustina Dasilva PGY-1
[2017-07-28 08:02] LABS: BILIRUBIN,TOTAL 0.4 mg/dL (0.2-1.3); CALCIUM 7.5 mg/dl (8.6-10.4); MAGNESIUM 2.4 mg/dL (1.6-2.3); POTASSIUM 4.3 mmol/L (3.6-5.2); TOTAL PROTEIN 5.9 g/dL (6.3-8.3)
[2017-07-28 08:16] LABS: ALB/GLOB RATIO 1.2 (1.0-2.1)
[2017-07-28] MEDS: (Novolin R) Insulin Human Regular 100 units/ml vial SC SCH ×4 (08:30→21:31)
[2017-07-28] MEDS ORDERED: Bisacodyl 5mg EC Tab PO ONE (09:00)
[2017-07-28] MEDS: Saccharomyces Boulardi 250 mg Cap PO SCH (10:44)
[2017-07-28] MEDS: Ferric Sodium Gluconat Complex 62.5 mg/5 ml Vial IVPB SCH (10:44)
[2017-07-28 12:42] LABS: RBC URINE 1 /hpf (0-3); URINE BILIRUBIN NEGATIVE (NEGATIVE); URINE BLOOD NEGATIVE (NEGATIVE); URINE COLOR Yellow (YELLOW); URINE GLUCOSE (UA) 1+ mg/dL (Normal); URINE KETONE NEGATIVE (NEGATIVE); URINE LEUKOCYTE ESTERASE NEG Leu/uL (Negative); URINE PROTEIN 2+ mg/dL (NEGATIVE); URINE UROBILINOGEN NORMAL mg/dL (0.2-1.0); WBC URINE 2 /hpf (0-5)
[2017-07-28] MEDS ORDERED: DiphenhydrAMINE 50 mg/ml Inj IVP PRN (14:15)
[2017-07-28] MEDS: DiphenhydrAMINE 50 mg/ml Inj IVP SCH ×2 (14:54→21:28)
[2017-07-28] MEDS: MethylPREDNISolone 40 mg Vial IVP SCH ×2 (14:54→22:39)
[2017-07-28] MEDS ORDERED: Magnesium Citrate Oral SOL (300 ml) PO ONE (17:00)
[2017-07-28 21:22] LABS: TROPONIN I 0.013 ng/mL (0.00-0.120)
--- NOTE | 2017-07-28 23:42 | PCM.RRT ---
CHILDHOOD TEACHER Nurses Assessment - Situation Date: 07/28/17 Time CHILDHOOD TEACHER was called: 19:50 CHILDHOOD TEACHER Location:: 6T Med/Surg CHILDHOOD TEACHER Reason for Call: O2 Saturation below 90% - IV IV Inserted during CHILDHOOD TEACHER?: No - Respiratory CHILDHOOD TEACHER Delivery Method: Non Rebreather @% Received Nebulizer Treatments: Yes Was the Patient Ventilated with Bag/Mask 100% O2?: No Was the Patient Intubated?: No Was the Patient Placed on a Ventilator?: No - Ventilator Settings SAO2 %: 97 I.Reason for CHILDHOOD TEACHER - A) Acute Change in Patient: (Select all that apply): Acute change in SpO2 less (<90 %) - Neurological Status (Select all that apply): Alert, Responsive, Oriented - Respiratory Oxygen Delivery Method: Non Rebreather @% - Constitutional Appears: In Acute Distress - Head Head Exam: ATRAUMATIC, NORMAL INSPECTION, NORMOCEPHALIC - Eyes Eye Exam: EOMI, Normal appearance - Respiratory Exam Respiratory Exam: Accessory Muscle Use, Decreased Breath Sounds - Cardiovascular Exam Cardiovascular Exam: REGULAR RHYTHM, RRR, +S1, +S2 - GI/Abdominal Exam GI & Abdominal Exam: Soft, Normal Bowel Sounds - Neurological Exam Neurological Exam: Alert, Awake, Oriented x3 - Extremities Exam Extremities Exam: Normal Inspection Plan - Assessment of Findings&Treatment Plan Patient put no nonrebreather an 02 saturation came up from high 80s to 100%. Patient's blood pressure 210/90 and ivp of Hydralazine 10mg given. Chest xray ordered and ROMIS ordered. Dr. Pearl (cardio) was called who as per nursing said the patient is stable from a cardiac standpoint. Patient blood pressure came down to 190/90 and another 10mg ivp Hydralazine given. Patient said she was feeling slightly better.
[2017-07-29] MEDS: Albuterol-Ipratrop 3 mg / 0.5 (3 ml) UD INH SCH ×4 (01:16→19:57)
[2017-07-29] MEDS: DiphenhydrAMINE 50 mg/ml Inj IVP SCH (02:51)
[2017-07-29] MEDS: MethylPREDNISolone 40 mg Vial IVP SCH (06:07)
[2017-07-29 06:53] LABS: BASO % 0.2 % (0.0-2.0); HEMATOCRIT 26.6 % (34.0-47.0); LYMPH # 0.8 K/uL (1.0-4.3); LYMPH % 11.3 % (20.0-40.0); MEAN CORPUSCULAR HEMOGLOBIN 25.6 pg (27.0-31.0); MEAN CORPUSCULAR HGB CONC 32.4 g/dL (33.0-37.0); MEAN PLATELET VOLUME 8.3 fL (7.2-11.7); MONO # 0.1 K/uL (0.0-0.8); MONO % 1.8 % (0.0-10.0); NRBC % 0.2 % (0.0-2.0); RED CELL DISTRIBUTION WIDTH 23.1 % (11.5-14.5); WHITE BLOOD COUNT 7.3 K/uL (4.8-10.8)
[2017-07-29 07:44] LABS: ALB/GLOB RATIO 1.3 (1.0-2.1); BILIRUBIN,TOTAL 0.5 mg/dL (0.2-1.3); CALCIUM 7.5 mg/dl (8.6-10.4); MAGNESIUM 2.3 mg/dL (1.6-2.3); PHOSPHOROUS 6.1 mg/dL (2.5-4.5); POTASSIUM 5.4 mmol/L (3.6-5.2); TOTAL PROTEIN 6.4 g/dL (6.3-8.3)
[2017-07-29] MEDS: (Novolin R) Insulin Human Regular 100 units/ml vial SC SCH ×4 (08:30→21:59)
--- NOTE | 2017-07-29 09:27 | CP.PCM.PN ---
Subjective - Date & Time of Evaluation Date of Evaluation: 07/29/17 Time of Evaluation: 09:26 - Subjective Subjective: pt is ssen and examined, follow up consult is dictated #[id number] add [id number] 650 mg po tid check cxr r/o chf vs pneumonia kayexalate 15 gm po x 1 Objective - Vital Signs/Intake and Output Vital Signs (last 24 hours): Temp Pulse Resp BP Pulse Ox 98.1 F 78 20 186/81 H 100 07/29/17 09:16 07/29/17 09:16 07/29/17 09:16 07/29/17 09:16 07/29/17 09:16 Intake and Output: 07/29/17 07/29/17 06:59 18:59 Intake Total 600 Output Total 600 Balance 0 - Medications Medications: Current Medications Acetaminophen (Tylenol 325mg Tab) 650 mg PO Q6 PRN PRN Reason: Pain, moderate (4-7) Last Admin: 07/22/17 12:38 Dose: 650 mg Albuterol/Ipratropium (Duoneb 3 Mg/0.5 Mg (3 Ml) Ud) 3 ml INH RQ6 [facility] Last Admin: 07/29/17 01:16 Dose: Not Given Aspirin (Aspirin Chewable) 81 mg PO DAILY [facility] Last Admin: 07/28/17 10:44 Dose: 81 mg Calcium Acetate (Phoslo) 667 mg PO TID [facility] Last Admin: 07/28/17 18:33 Dose: 667 mg Carvedilol (Coreg) 6.25 mg PO BID [facility] Last Admin: 07/28/17 18:31 Dose: 6.25 mg Famotidine (Pepcid) 20 mg IVP DAILY [facility] Ferric Sodium Gluconate Complex (Ferrlecit) 125 mg IVPB DAILY [facility] Stop: 07/29/17 10:01 Last Admin: 07/28/17 10:44 Dose: 125 mg Gabapentin (Neurontin) 100 mg PO TID [facility] Last Admin: 07/28/17 18:32 Dose: 100 mg Heparin Sodium (Porcine) (Heparin) 5,000 units SC Q8 [facility] Last Admin: 07/29/17 06:07 Dose: 5,000 units Hydralazine HCl (Apresoline) 10 mg IVP Q6H PRN PRN Reason: Systolic Blood Pressure Last Admin: 07/28/17 20:02 Dose: 10 mg Hydralazine HCl (Apresoline) 100 mg PO Q8H [facility] Last Admin: 07/29/17 04:19 Dose: 100 mg Insulin Human Regular (Novolin R) 0 unit SC ACHS KAZ PRN Reason: Protocol Last Admin: 07/28/17 21:31 Dose: Not Given Nitroglycerin (Nitro-Bid 2% Oint) 1 ea TOP Q6H PRN PRN Reason: Pain, severe (8-10) Ondansetron HCl (Zofran Inj) 4 mg IVP Q6 PRN PRN Reason: Nausea/Vomiting Last Admin: 07/26/17 09:58 Dose: 4 mg Promethazine HCl/Codeine (Phenergan/Codeine Oral Syrup) 5 ml PO Q4 PRN PRN Reason: Cough Rosuvastatin Calcium (Crestor) 10 mg PO HS [facility] Last Admin: 07/28/17 21:29 Dose: 10 mg Saccharomyces Boulardii (Florastor) 250 mg PO DAILY [facility] Last Admin: 07/28/17 10:44 Dose: 250 mg - Labs Labs: 07/29/17 06:25 07/29/17 06:25 PT 11.6 SECONDS (9.7-12.2) 07/20/17 18:03 INR 1.0 07/20/17 18:03 APTT 40 SECONDS (21-34) H D 07/21/17 01:27
--- NOTE | 2017-07-29 09:34 | RAD ---
HISTORY: new onset SOB COMPARISON: Portable chest 07/24/2017. FINDINGS: LUNGS: Rule patchy density seen in the bilateral bases suspicious for bilateral lower lobe and possible lingular infiltrate. Leftward border is poorly defined. PLEURA: No significant pleural effusion identified, no pneumothorax apparent. CARDIOVASCULAR: Cardiac size appears stable and remains prominent however increased reticular markings and mild increase in pulmonary vascularity suggests active CHF. Clinically correlate further. OSSEOUS STRUCTURES: No significant abnormalities. VISUALIZED UPPER ABDOMEN: Normal. OTHER FINDINGS: None. IMPRESSION: 1. A basilar infiltrates are suspected including the lingula. Further clinical is advised. 2. Potential CHF though some markings are increased due to underpenetration.
[2017-07-29] MEDS: Saccharomyces Boulardi 250 mg Cap PO SCH (10:00)
[2017-07-29] MEDS: Ferric Sodium Gluconat Complex 62.5 mg/5 ml Vial IVPB SCH (11:30)
--- NOTE | 2017-07-29 12:09 | RAD ---
HISTORY: crackles left COMPARISON: Comparison made with chest radiograph 07/28/2017. Comparison also made with CT scan of the abdomen pelvis 07/26/2017 which imaged both lung bases. FINDINGS: LUNGS: The previously noted bibasilar opacities right greater than left improved however patchy opacity at mass seen in the right upper lung field in the suprahilar region. Small effusions that were seen on prior CT scan appear to have improved as well. PLEURA: As above. No pneumothorax apparent. CARDIOVASCULAR: Heart remains mildly enlarged. OSSEOUS STRUCTURES: Mild multilevel degenerative spondylosis of the thoracic spine VISUALIZED UPPER ABDOMEN: Normal. OTHER FINDINGS: None. IMPRESSION: The previously noted bibasilar opacities right greater than left improved however patchy opacity at mass seen in the right upper lung field in the suprahilar region. Small effusions that were seen on prior CT scan appear to have improved as well.
--- NOTE | 2017-07-29 17:39 | RAD ---
PROCEDURE: Barium enema dated 07/29/2017. HISTORY: Stool occult blood COMPARISON: Comparison made with prior CT scan abdomen and pelvis dated 07/26/2017. TECHNIQUE: Single contrast barium enema performed as per request. Single-contrast of barium enema performed in standard fashion. Liquid opaque contrast material flowed from right hearing cecum with a ventral reflux into the terminal ileum. . Multiple fluoroscopic and overhead radiographic images of the abdomen obtained during this procedure. . FINDINGS: The current study reveals a serpentine radiopaque density overlying the left parasagittal upper true pelvis consistent with what probably represents in situ intrauterine device. . . There appears be residual stool throughout most of the colon limiting evaluation. No definitive persistent intraluminal or extrinsic filling defects seen within the contrast column not withstanding the aforementioned intraluminal residual stool. No focal areas of stenosis or apple-core lesions identified. The mucosal pattern was poorly delineated on this single contrast exam. Appendix not identified with certainty. Reflux of contrast material into the terminal ileum noted. Post evac film demonstrates of. [id number] amount residual contrast material within the cecum and ascending colon. Impression Study is limited due to poor preparation with residual stool throughout most of the colon. No definitive persistent intraluminal or extrinsic filling defects. No apple core lesions identified. Colonic mucosa of poorly delineated due to the presence of residual stool on this single contrast exam. . Followup colonoscopy recommended. . 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
--- NOTE | 2017-07-29 20:10 | CP.PCM.PN ---
<Carolyn Sharpe - Last Filed: 07/29/17 20:14> Subjective - Date & Time of Evaluation Date of Evaluation: 07/29/17 Time of Evaluation: 07:45 - Subjective Subjective: Progress note for Dr. Weems Patient seen and examined at bedside. Patient states she does feels a little bit better compared to yesterday . Patient denies Fever, chills, nausea, vomiting. Patient is aware she is getting a barium enema today. Objective - Vital Signs/Intake and Output Vital Signs (last 24 hours): Temp Pulse Resp BP Pulse Ox 98 F 89 18 185/78 H 97 07/29/17 15:00 07/29/17 15:00 07/29/17 15:00 07/29/17 20:05 07/29/17 15:00 - Medications Medications: Current Medications Acetaminophen (Tylenol 325mg Tab) 650 mg PO Q6 PRN PRN Reason: Pain, moderate (4-7) Last Admin: 07/22/17 12:38 Dose: 650 mg Albuterol/Ipratropium (Duoneb 3 Mg/0.5 Mg (3 Ml) Ud) 3 ml INH RQ6 [facility] Last Admin: 07/29/17 19:57 Dose: 3 ml Aspirin (Aspirin Chewable) 81 mg PO DAILY [facility] Last Admin: 07/29/17 10:00 Dose: Not Given Calcium Acetate (Phoslo) 667 mg PO TID [facility] Last Admin: 07/29/17 18:30 Dose: 667 mg Carvedilol (Coreg) 12.5 mg PO BID [facility] Famotidine (Pepcid) 20 mg IVP DAILY [facility] Last Admin: 07/29/17 11:00 Dose: 20 mg Furosemide (Lasix) 40 mg PO DAILY [facility] Gabapentin (Neurontin) 100 mg PO TID [facility] Last Admin: 07/29/17 18:29 Dose: 100 mg Heparin Sodium (Porcine) (Heparin) 5,000 units SC Q8 [facility] Last Admin: 07/29/17 13:06 Dose: 5,000 units Hydralazine HCl (Apresoline) 10 mg IVP Q6H PRN PRN Reason: Systolic Blood Pressure Last Admin: 07/29/17 11:56 Dose: 10 mg Hydralazine HCl (Apresoline) 100 mg PO Q8H [facility] Last Admin: 11/24/17 12:30 Dose: Not Given Insulin Human Regular (Novolin R) 0 unit SC ACHS [facility] PRN Reason: Protocol Last Admin: 07/29/17 18:30 Dose: 6 unit Nitroglycerin (Nitro-Bid 2% Oint) 1 ea TOP Q6H PRN PRN Reason: Pain, severe (8-10) Ondansetron HCl (Zofran Inj) 4 mg IVP Q6 PRN PRN Reason: Nausea/Vomiting Last Admin: 07/26/17 09:58 Dose: 4 mg Promethazine HCl/Codeine (Phenergan/Codeine Oral Syrup) 5 ml PO Q4 PRN PRN Reason: Cough Last Admin: 07/29/17 12:47 Dose: 5 ml Rosuvastatin Calcium (Crestor) 10 mg PO HS [facility] Last Admin: 07/28/17 21:29 Dose: 10 mg Saccharomyces Boulardii (Florastor) 250 mg PO DAILY [facility] Last Admin: 07/29/17 10:00 Dose: Not Given Sodium Bicarbonate (Sodium Bicarbonate Tab) 650 mg PO Q8 [facility] - Labs Labs: 07/29/17 06:25 07/29/17 06:25 PT 11.6 SECONDS (9.7-12.2) 07/20/17 18:03 INR 1.0 07/20/17 18:03 APTT 40 SECONDS (21-34) H D 07/21/17 01:27 - Constitutional Appears: Non-toxic - Head Exam Head Exam: NORMAL INSPECTION - Eye Exam Eye Exam: EOMI, Normal appearance - Neck Exam Neck Exam: Full ROM - Respiratory Exam Respiratory Exam: Decreased Breath Sounds, Rales. absent: Accessory Muscle Use - Cardiovascular Exam Cardiovascular Exam: REGULAR RHYTHM, +S1, +S2. absent: Bradycardia, Tachycardia - GI/Abdominal Exam GI & Abdominal Exam: Tenderness (midepigastric pain), Normal Bowel Sounds. absent: Pulsatile Mass, Rebound Additional comments: LLQ tenderness macular papular rash on back mostly on right side, chest, and right lower abdomen, improved from last visit at bedside. - Extremities Exam Extremities Exam: absent: Pedal Edema - Neurological Exam Neurological Exam: Alert, Awake, Oriented x3 - Psychiatric Exam Psychiatric exam: Normal Affect, Normal Mood Assessment and Plan - Assessment and Plan (Free Text) Assessment: Assessment: 1.) Dyspnea on exertion secondary to CHF vs. Pneumonia Cardio Consult: Dr. Pearl --> help appreciated - Echo (07/17/17):Grade II diastolic dysfunction; EF 55% - Chest X-ray (07/24): Moderate venous congestion; right hilar prominence and consolidation; mild patchy left basilar opacity. - f/u Strep pneumonia urine - Legionella urine: Negative - Mycoplasma IgM: Negative - Zosyn started 07/24 - discontinued 07/28/17 - Duonebs PRN shortness of breath 07/[address] Figueredo: check cxr r/o chf vs pneumonia, patient given kayexalate 15 gm po x 1 07/29 CXR: bibasilar opacities right is greater than left. small effusions seem to have improved as well. . patchy opacity at mass seen in right upper lung field in suprahilar region. 2.) Diastolic CHF (Type II) Cardio Consult: Dr. Pearl --> help appreciated - Echo (07/17/17):Grade II diastolic dysfunction; EF 55% - Chest X-ray (07/24): Moderate venous congestion; right hilar prominence and consolidation; mild patchy left basilar opacity. - EUGENIA (07/20/2017) Showed 0.184 inc. to 0.196 and began down-trending - EKG (07/20/17) NSR - Lipid panel -WNL - Stress Test (07/20/17) - Showed defect possibly representing ischemia - Cardiac Cath (07/21/17) - Angiographically normal coronaries and normal LV systolic function Medications: * Lasix 40 IV BID discontinued secondary to JACQUES * Crestor 10 PO HS * Aldactone 25 PO BID discontinued secondary to JACQUES * Lisinopril 40 PO QD discontinued secondary to JACQUES * Added Coreg 3.125 BID per Cardio * Added Duonebs per Cardio * Added Nitropaste per Cardio. 3.) JACQUES Likely secondary to medications and dye from cardiac cath Nephro consult: Dr. Najera --> help appreciated - urine sodium 32, urine osmolality 241(low), urine creatinine 65.6 - f/u urine chloride - Serum osmolality 302 - Renal US 07/23 - mild increased echogenicity of the bilateral renal parenchymal cortices suggestive for medical renal disease (please see full report) - Chest X-ray (07/24): Moderate venous congestion; right hilar prominence and consolidation; mild patchy left basilar opacity. - Discussed with Dr. Figueredo: Discontinue Lisinopril, aldactone and lasix - Spoke with Dr. Figueredo: patient is retaining urine- he stated to continue straight cath - Urine output in the AM of 07/28/17: 450cc - Esosinophils in urine: Negative 4.) UTI (urinary tract infection) - First UA contaminated - Repeat UA shows trace Leuk Es. - Urine Culture- E.Coli sensitive to all antibiotics tested Antibiotics: * Azithromycin 500mg started on 07/25 * Zosyn started 07/24 5.) Stool Occult Blood Positive GI consult: Dr. Negron --> help appreciated - CEA 2.2 - CA125: 120 (high) - CA19-9: 23 - F/U stool for C diff, stool culture, leukocytes, ova and parasites -07/29 Barium Swallow: serpentine radioopaque density overlying left parasagittal upper true pelvis consistent with intrauterine device. Residual stool limiting evaluation. no definitive filling defects seen within contrast column. no apple core lesions, no persistent intraluminal or extrinsic filling defects, f/u colonoscopy recommended. 6.) Diarrhea GI consult: Dr. Negron --> help appreciated - Abd/Pelvis CT: Small bilateral pleural effusions and associated consolidations. No visible pneumothorax. Partially imaged cardiomegaly. Small hiatal hernia/ distal esophageal wall thickening. Nodular hepatic contour ; correlate clinically for cirrhosis. Punctate hepatic calcification, right inferior lobe. Heterogeneous hepatic parenchyma, particularly within the left lower lobe. If indicated, suggest further evaluation with dedicated liver CT. Gallbladder wall thickening/pericholecystic edema. Correlate clinically. Suggest right upper quadrant ultrasound. Fluid within the small and large bowel ; correlate for diarrheal illness. Diverticulum of the proximal duodenum. Scattered diverticulosis without CT evidence of acute diverticulitis. Thickened urinary bladder wall atrophy portion to level of underdistention. Recommend correlation with urinalysis. Coarse uterine calcifications. Trace fluid within the pericolic gutters. - Floraster - Metronidazole 500mg PO q8h - discontinued 07/28/17 - F/U stool for C diff, stool culture, leukocytes, ova and parasites 7.) Chronic Leg Pain - Bilateral Venous Doppler (07/25/17): Negative for DVT - Venous doppler (07/17/17)- NEGATIVE for DVT - Gabapentin 100mg PO TID 8.) Microcytic Anemia Hematology consult: Dr. Sullivan --> help appreciated - Ferous Sulfate 325 BID - Stool occult blood positive - f/u Immunofixation, protein electrophoresis - Free [place]: 81.8 - Free Lambda: 41.9 - [place]/Lambda: 1.95 9.) Abdominal Pain possibly secondary to uterine fibroids [employer] Consult: Dr. Lozoya --> help appreciated - Transvaginal US showed fibroids but did not identify IUD - CA125: 120 (high) - Outpatient FINAL TESTER follow for possible IUD and uterine fibroids 10.) History Hypertension Medications: * Lisinopril 40mg PO QD discontinued secondary to JACQUES * Lasix 40 IV BID discontinued secondary to JACQUES * Coreg 3.125 BID per Cardio * Hydralazine 25 PO QID KAZ--> increased to hydralazine 100mg PO TID * Nitropaste 11.) History of Diabetes - HgBA1c = 7.4 - ISS High - Accuchecks 12.) Rash possibly secondary to ABs - All antibiotics discontinued 07/28/17 - Benadryl 25mg IV PRN - Monitor 13.) Hyperphosphotemia - likely secondary to JACQUES - Spoke with Dr. Figueredo to continue Phoslo 667mg but change to TID 14.) Prophylactic measure - Heparin 5000U SC Q8 - Zofran 4mg IVP Q6PRN - Pepcid 20mg PO daily - Patient can Ambulate Case discussed with Dr. Faustina Sharpe, PGY1 <Kate Weems V - Last Filed: 07/29/17 21:27> Objective - Vital Signs/Intake and Output Vital Signs (last 24 hours): Temp Pulse Resp BP Pulse Ox 98 F 89 18 185/78 H 97 07/29/17 15:00 07/29/17 15:00 07/29/17 15:00 07/29/17 20:05 07/29/17 15:00 - Medications Medications: Current Medications Acetaminophen (Tylenol 325mg Tab) 650 mg PO Q6 PRN PRN Reason: Pain, moderate (4-7) Last Admin: 07/22/17 12:38 Dose: 650 mg Albuterol/Ipratropium (Duoneb 3 Mg/0.5 Mg (3 Ml) Ud) 3 ml INH RQ6 [facility] Last Admin: 07/29/17 19:57 Dose: 3 ml Aspirin (Aspirin Chewable) 81 mg PO DAILY [facility] Last Admin: 07/29/17 10:00 Dose: Not Given Calcium Acetate (Phoslo) 667 mg PO TID [facility] Last Admin: 07/29/17 18:30 Dose: 667 mg Carvedilol (Coreg) 12.5 mg PO BID [facility] Famotidine (Pepcid) 20 mg IVP DAILY [facility] Last Admin: 07/29/17 11:00 Dose: 20 mg Furosemide (Lasix) 40 mg PO DAILY [facility] Gabapentin (Neurontin) 100 mg PO TID [facility] Last Admin: 07/29/17 18:29 Dose: 100 mg Heparin Sodium (Porcine) (Heparin) 5,000 units SC Q8 [facility] Last Admin: 07/29/17 13:06 Dose: 5,000 units Hydralazine HCl (Apresoline) 10 mg IVP Q6H PRN PRN Reason: Systolic Blood Pressure Last Admin: 07/29/17 11:56 Dose: 10 mg Hydralazine HCl (Apresoline) 100 mg PO Q8H [facility] Last Admin: 07/29/17 12:30 Dose: Not Given Insulin Human Regular (Novolin R) 0 unit SC ACHS [facility] PRN Reason: Protocol Last Admin: 07/29/17 18:30 Dose: 6 unit Nitroglycerin (Nitro-Bid 2% Oint) 1 ea TOP Q6H PRN PRN Reason: Pain, severe (8-10) Ondansetron HCl (Zofran Inj) 4 mg IVP Q6 PRN PRN Reason: Nausea/Vomiting Last Admin: 07/26/17 09:58 Dose: 4 mg Promethazine HCl/Codeine (Phenergan/Codeine Oral Syrup) 5 ml PO Q4 PRN PRN Reason: Cough Last Admin: 07/29/17 12:47 Dose: 5 ml Rosuvastatin Calcium (Crestor) 10 mg PO HS [facility] Last Admin: 07/28/17 21:29 Dose: 10 mg Saccharomyces Boulardii (Florastor) 250 mg PO DAILY [facility] Last Admin: 07/29/17 10:00 Dose: Not Given Sodium Bicarbonate (Sodium Bicarbonate Tab) 650 mg PO Q8 [facility] - Labs Labs: 07/29/17 06:25 07/29/17 06:25 PT 11.6 SECONDS (9.7-12.2) 07/20/17 18:03 INR 1.0 07/20/17 18:03 APTT 40 SECONDS (21-34) H D 07/21/17 01:27 Attending/Attestation - Attestation I have personally seen and examined this patient.: Yes I have fully participated in the care of the patient.: Yes I have reviewed all pertinent clinical information, including history, physical exam and plan: Yes Notes (Text): Patient seen, examined and case discussed with day-time resident. Per nursing staff, no episodes of diarrhea. Discussed with nephrology, patient has increased crackle over the left upper lung. Repeat chest xray taken today. May use PRN lasix. Infectious Disease consult placed for pneumonia in light of patient's recent drug induced allergy ( recent use of Rocephin/Zosyn/Azithromycin and Flagyl) to treat UTI/Pneumonia Patient completed Barium enema today. F/u report. Will need to follow-up with GI. Patient has not had reported diarrhea episodes, discussed with nursing staff for the past two days. Patient's rash over the chest, abdomen, and pelvis is starting to fade, but does not complain of itchiness. Patient continues to have urinary retention; PRN urinary straight cath. Blood pressure uncontrolled-->Coreg increased to 12.5mg PO BID and Lasix 40mg PO daily per nephrology; gave stat dose of Norvac given patient's blood pressure is continued to be uncontrolled. Assessment/Plan 1) Allergic Reaction * Given Benadryl 25mg IV and Solumderol 40mg IV X1 07/27; no oropharygneal involvement; itchiness over the right lower quadrant with skin rash noted; rash spread to chest, abdomen, back, flat, macular rash. Ordered for Benadryl 25mg IV Q6H and Solumedrol 40mg IV Q 8H X1 07/28 * Will stop Zosyn/Azithromycin/Flagy 07/28-->not suspecting Rocephin/Zosyn given patient did not have rash during those days those antibiotics were on. * Monitor 2) Uncontrolled Hypertension * Coreg 12.5 mg PO BID * Hydralazine 10mg IV Q 6HR SBP >160 * Hydralazine 100mg PO Q8H * Lasix 40mg PO daily * given stat dose of Norvasc 5mg POX1 * monitor blood pressure * Patient is off warren inhibitor/arb/aldactone secondary to acute renal insufficiency 3) Dyspnea on exertion 2/2 to Diastolic CHF (Type II) * Likely 2/2 to new onset CHF * Cardio Dr. Pearl Consult - recs appreciated * Echo - shows Grade II diastolic dysfunction. * CXR - Moderate pulm venous congestion * CXR (07/24): moderate venous congestion, Right hilar prominence and consolidation. Mild patchy left basilar opacity, Trace left pleural effusion. tortuous ectatic aorta, cardiomegaly. * EUGENIA NEGATIVE x3 * EKG (07/20/17) NSR. * Lipid panel -WNL * Stress Test (07/20/17) - Showed defect possibly representing ischemia * Cardiac Cath (07/21/17) - Angiographically normal coronaries and normal LV systolic function Meds: * Lasix 40mg IV BID on hold secondary to JACQUES on 07/23 * Lasix 40mg IV daily * Crestor 10mg PO HS * Aldactone 25 PO BID on hold secondary to JACQUES on 07/23 * Lisinopril 40 PO QD on hold secondary to JACQUES on 07/23 * increased Coreg 12.5mg BID 4) Pneumonia * CXR (07/24): moderate venous congestion, Right hilar prominence and consolidation. Mild patchy left basilar opacity, Trace left pleural effusion. tortuous ectatic aorta, cardiomegaly. * off Zosyn 2.25 IV Q 8 H and Azithromycin 500mg IV q daily 07/28 due to allergic response * Duonebs PRN shortness of breath * Promethazine w codeine 5 ml PO Q 4H PRn cough * Order for Strep pneumonia urine, Legionella urine: negative and Mycoplasma IgM : negative * Infectious Disease (Dr. Reynaga) on consult-->f/u recommendations 5) Urinary Tract Infection * 07/18 contaminated * 07/21 E. Coli * Completed 2nd dose of Rocephin; changed to Zosyn 2.25 g IVPB Q8H (active since 07/24/17) * 07/25 Urine culture: no growth * 07/28 Urine culture: no growth * urine eosinophil: negative 6) JACQUES * Nephrology consult - Dr. Aniya Najera - help appreciated * urine sodium 32, urine osmolality 241(low), urine creatinine 65.6, Serum osmolality 302 * Renal US 07/23/17 - mild increased echogenicity of the bilateral renal parenchymal cortices suggestive for medical renal disease (please see full report) * Holding lisinopril, aldactone and lasix until 07/25/17 to assess affect on creatinine * Urine culture: E. Coli * stop Zosyn 2.25 g IVPB Q8H (active since 07/24/17) on 07/28/17 * Repeat urine culture: no growth * urine eosinophil: negative * Bladder scan: 300 cc urinary retention 07/27-->needed to be straight cath today; no mcintosh * Bladder scan: 900 cc urinary retention 07/28-->needed to be straight cath * Discussed with nephrology 07/28 who is aware, recommended for PRN Straight cath * Bladder scan done,shows 319 ml of urine, 07/29 straight cath done,obtained 300 ml of dark francesco urine. 7) Microcytic Anemia * Ferrlecit 125mg IVPB daily (07/21-07/29) * Stool occult blood positiv * Hematology consult - Dr. Sullivan - kiersten appreciated * hypoproliferative erythroid response * responding to IV iron * element of anemia of CKD; s/p Procrit * monoclonal protein w/u sent * hemoglobinopathy evaluation sen * f/u SPEP/IPEP/[employer] [place] [employer] results * GI consult - Dr. Negron - kiersten appreciated * CEA: 2.2 * CA 19-9: 23.0 * Elevated CA 125: 120 * Barium enema for 07/29/17-->study is limited due to poor preparation with residual stool throughout most of the colon. No definitive persistent intraluminal or extrinisc filling defects. No apple core lesions. Colonic mucosa poor delineated due to presence of residual stool. f/u colonoscopy recommend-->will need to f/u with GI 8) Stool Occult Blood * GI consult - Dr. Jamil burch appreciated * CEA 2.2 * Elevated CA 125: 120 * Barium enema for 07/29/17-->study is limited due to poor preparation with residual stool throughout most of the colon. No definitive persistent intraluminal or extrinisc filling defects. No apple core lesions. Colonic mucosa poor delineated due to presence of residual stool. f/u colonoscopy recommend-->will need to f/u with GI * F/U stool for C diff, stool culture, leukocytes, ova and parasites--Pending * Patient has not had C. Dif collected because has not provided sample * Patient reports loose stool; on IV abx for UTI 9) Elevated CA 125; Fibroid * TV US showed fibroids but did not identify IUD * Elevated CA 125 * Ob[employer] hospitalist service consulted-->help appreciated * per Dr. Yu's note "It was explained to the patient, IUD is confirmed. It was also explained to the patient, attempts at removing the IUD will most likely require examination under anesthesia. In addition, patient would have to be consented for possible surgery including but not limited to exploratory laparotomy and the possible complications that may develop. Patient expressed an understanding and does not desire to proceed with attempt at removing her IUD. Patient stated on several occasions, that the IUD has caused her problems over the past 40 years" * Patient is clinically stable from their standpoint 10) Leg pain * Venous doppler: negative * Arterial doppler: negative * Gabapentin 100mg PO TID 11) Diabetes * HgBA1c = 7.4 * ISS High * Accuchecks QAC and HS 12) Diarrhea * GI (Dr. Negron) on board-->help appreciated * CT Abdomen/Pelvis (07/26/17): small bilateral pleural effusions and associated consolidations. No visible pneumothorax. Partial imaged cardiomegaly. Nodular hepatic contour. Punctuate hepatic calcification, right inferior lobe. Gallbladder wall thickening/pericholecystic edema. Fluid within small and large bowel. scatter diverticulosis without CT evidence of acute diverticulitis. Thickened urinary bladder wall atrophy portion to level of underdistention. coarse uterine calcifications * Abdomen US: cholelithiasis, cirrhosis without infiltration. incidental findins * Has not had diarrhea for three days * Barium enema for 07/29/17-->study is limited due to poor preparation with residual stool throughout most of the colon. No definitive persistent intraluminal or extrinisc filling defects. No apple core lesions. Colonic mucosa poor delineated due to presence of residual stool. f/u colonoscopy recommend-->will need to f/u with GI 13) Prophylactic measure * Heparin 5000U SC Q8H * Ambulate * Zofran 4mg IVP Q6 PRN nausea * pepcid 20mg IV qdaily * patient is on liquid diet s/p barium enema Disposition: * Completed barium enema, will need to follow-up with GI, Dr Negron * Infectious Disease consult given pneumonia, and recent allergic reaction to antibiotics * uncontrolled blood pressure-->will need monitor and adjust blood pressure medications
--- NOTE | 2017-07-29 22:03 | PN ---
FOLLOWUP RENAL CONSULTATION LOCATION: The patient is located in room 669, bed B. REQUESTED PHYSICIAN: Dr. Kate Morales. REASON FOR RENAL FOLLOWUP: Acute renal failure and for further evaluation. HISTORY OF PRESENT ILLNESS: Mrs. Hillman is a 81 years old elderly female with a history of type 2 diabetes, hypertension who was admitted with shortness of breath. The patient was found to have diastolic CHF, status post cardiac cath and being treated for the urosepsis and also CHF and pneumonia. The patient was found to have worsening renal function since cardiac cath. The patient is on face mask this morning, complains some mild shortness of breath, not in distress. Denies any chest pain. PHYSICAL EXAMINATION: VITAL SIGNS: This morning as follows; blood pressure 186/81, pulse 78, respirations 20, temperature 98.1, saturation 100%. Height 5 feet 2 inches and weight is 163 pounds. GENERAL: Mrs. Hillman is a 81 years old elderly female, moderately-built, moderately-nourished, not in distress. HEENT: Pupils are normal, reactive to light and accommodation. Conjunctivae are pink. Sclerae are anicteric. Tongue is moist. Trachea is midline. LUNGS: Symmetric on both sides. Bilateral breath sounds present. The patient has crackles upto two-thirds of the left lung and occasional basal crackle on the right side. CARDIOVASCULAR SYSTEM: [place] at the fifth intercostal space, midclavicular line. S1 and S2 audible. No murmur and no gallop. ABDOMEN: Normal in appearance, soft, tympanic. No guarding, no rigidity. No hepatosplenomegaly. CENTRAL NERVOUS SYSTEM: The patient is alert, awake, oriented x3. Nonfocal neuro examination. Cranial nerves II through XII grossly intact. Sensory and motor system are within normal limits. EXTREMITIES: No cyanosis, no clubbing. CURRENT MEDICATIONS: Include hydralazine 10 mg IV q.6 hours p.r.n., hydralazine 100 mg p.o. q.8 hours, aspirin 81 mg daily, Coreg 6.25 mg p.o. b.i.d., Crestor 10 mg at bedtime, DuoNeb inhaler, Florastor 250 mg p.o. daily, sebcu heparin 5000 q.8 hours, Neurontin 100 mg p.o. t..i.d., Nitro-Bid ointment topical q.6 hours, Humulin insulin human regular, Novolin R for sliding scale, Pepcid 20 mg IV daily, Phenergan With Codeine 5 mL q.4 hours p.r.n., PhosLo 667 mg t.i.d., Tylenol and also Zofran 4 mg IV q.6 hours p.r.n. LABORATORY DATA: Other laboratory data: Chest x-ray as of 07/29/2017; bibasilar opacities, right greater than left, improved, however, patchy opacity at mass seen in the right upper lung field in the suprahilar region. Small pleural effusion that was seen in the prior CT scan appears to have improved as well. Impression: Previously noted bibasilar opacities, right greater than the left, improved, however, patchy opacity at mass seen in the right upper lung field in the suprahilar region. Small effusions that were seen in prior CT scan appears to have improved as well. Barium enema as of 07/29/2017; impression: Study limited due to poor preparation with residual stool throughout most of the colon. No definite persistent intraluminal or extrinsic filling defect. No apple-core lesions identified. Colonic mucosa is poorly delineated due to the presence of residual stool on the single contrast exam, followup colonoscopy recommended. Other laboratory data as of 07/29/2017; WBC 7.3, hemoglobin 8.6, hematocrit 26.6, MCV 79 and platelets 203. Sodium 124, potassium 5.4, chloride 97, bicarb is 15, BUN 45, creatinine 3.4, glucose 226, calcium 7.5, phosphorus 6.1, magnesium 2.3. Total bili 0.5, AST 20, ALT 24, alkaline phosphatase is 81, total protein 6.4, albumin is 3.6, and troponin 0.013, 0.012 and 0.012. CPK levels 48, 46, and 52. ASSESSMENT AND PLAN: In summary, Mrs. Hillman is a 81 years old elderly female with history of hypertension, diabetes, congestive heart failure, diastolic heart failure, status post cardiac cath, being treated for pneumonia and also urinary tract infection. Repeat urine culture as of 07/28/2017, no growth. 1. Acute renal failure, nonoliguric, most likely secondary to acute tubular necrosis, secondary to contrast nephropathy on top of urosepsis. 2. Congestive heart failure. 3. Hyponatremia. 4. Hyperkalemia. 5. Congestive heart failure versus pneumonia, continue antibiotics as per primary team and Kayexalate 15 g p.o. x1. 6. Metabolic acidosis secondary to renal failure. We will add sodium bicarbonate 650 mg p.o. t.i.d. Repeat BMP in a.m. and Lasix p.r.n. We will follow with you. Thank you for allowing me to participate in your patient's care. Discussed with Dr. Kate Morales in rounds. Chuck Figueredo MD
--- NOTE | 2017-07-30 00:10 | CT ---
EXAM: CT Head Without Intravenous Contrast CLINICAL HISTORY: 81 years old, female; Pain; Headache; Patient HX: 11-12-16; Additional info: S/P fall TECHNIQUE: Axial computed tomography images of the head/brain without intravenous contrast. All CT scans at this facility use one or more dose reduction techniques, viz.: automated exposure control; ma/kV adjustment per patient size (including targeted exams where dose is matched to indication; i.e. head); or iterative reconstruction technique. COMPARISON: CT - HEAD W/O CONTRAST 2016-11-12 15:27 FINDINGS: Limitations: Motion artifact - mild. Brain: Mild atrophy. No definite intracranial hemorrhage. Calcified lesion within RIGHT frontal region, suboptimally evaluated but present on previous examination. Few scattered foci of decreased attenuation within periventricular/subcortical white matter. No definite edema. Ventricles: No hydrocephalus. Bones/joints: No acute fracture. Soft tissues: Unremarkable. Vasculature: Atherosclerotic disease of intracranial arteries. Sinuses: Mild mucosal thickening of LEFT ethmoid sinus. Mastoid air cells: No mastoid effusion. Orbits: Unremarkable as visualized. IMPRESSION: 1. No definite intracranial hemorrhage. 2. Nonspecific white matter changes. 3. Incidental/non-acute findings are described above.
[2017-07-30] MEDS: Albuterol-Ipratrop 3 mg / 0.5 (3 ml) UD INH SCH ×2 (01:25→08:57)
--- NOTE | 2017-07-30 03:47 | CP.PCM.PN ---
Subjective - Date & Time of Evaluation Date of Evaluation: 07/29/17 Time of Evaluation: 23:29 - Subjective Subjective: [place] @11:59pm was called by the nurse after the patient fell. The fall was not witnessed. Patient states she was trying to get out of bed to go to the chair when she slipped and fell. She denies pain to her head and states she has always has leg pain. Vitals: B/P 167/84; HR 76; Temp 97.5; O2 98% CT of the head was ordered: No definite intracranial hemorrhage; nonspecific white matter changes. Objective - Vital Signs/Intake and Output Vital Signs (last 24 hours): Temp Pulse Resp BP Pulse Ox 97.9 F 74 20 167/84 H 98 07/29/17 23:40 07/30/17 01:48 07/29/17 23:40 07/29/17 23:40 07/29/17 23:40 - Medications Medications: Current Medications Acetaminophen (Tylenol 325mg Tab) 650 mg PO Q6 PRN PRN Reason: Pain, moderate (4-7) Last Admin: 07/22/17 12:38 Dose: 650 mg Albuterol/Ipratropium (Duoneb 3 Mg/0.5 Mg (3 Ml) Ud) 3 ml INH RQ6 [facility] Last Admin: 07/30/17 01:25 Dose: Not Given Aspirin (Aspirin Chewable) 81 mg PO DAILY [facility] Last Admin: 07/29/17 10:00 Dose: Not Given Calcium Acetate (Phoslo) 667 mg PO TID [facility] Last Admin: 07/29/17 18:30 Dose: 667 mg Carvedilol (Coreg) 12.5 mg PO BID [facility] Famotidine (Pepcid) 20 mg IVP DAILY [facility] Last Admin: 07/29/17 11:00 Dose: 20 mg Furosemide (Lasix) 40 mg PO DAILY [facility] Gabapentin (Neurontin) 100 mg PO TID [facility] Last Admin: 07/29/17 18:29 Dose: 100 mg Heparin Sodium (Porcine) (Heparin) 5,000 units SC Q8 [facility] Last Admin: 07/29/17 21:59 Dose: 5,000 units Hydralazine HCl (Apresoline) 10 mg IVP Q6H PRN PRN Reason: Systolic Blood Pressure Last Admin: 07/29/17 11:56 Dose: 10 mg Hydralazine HCl (Apresoline) 100 mg PO Q8H [facility] Last Admin: 07/29/17 21:58 Dose: 100 mg Insulin Human Regular (Novolin R) 0 unit SC ACHS [facility] PRN Reason: Protocol Last Admin: 07/29/17 21:59 Dose: Not Given Nitroglycerin (Nitro-Bid 2% Oint) 1 ea TOP Q6H PRN PRN Reason: Pain, severe (8-10) Ondansetron HCl (Zofran Inj) 4 mg IVP Q6 PRN PRN Reason: Nausea/Vomiting Last Admin: 07/26/17 09:58 Dose: 4 mg Promethazine HCl/Codeine (Phenergan/Codeine Oral Syrup) 5 ml PO Q4 PRN PRN Reason: Cough Last Admin: 07/29/17 12:47 Dose: 5 ml Rosuvastatin Calcium (Crestor) 10 mg PO HS [facility] Last Admin: 07/29/17 21:59 Dose: 10 mg Saccharomyces Boulardii (Florastor) 250 mg PO DAILY [facility] Last Admin: 07/29/17 10:00 Dose: Not Given Sodium Bicarbonate (Sodium Bicarbonate Tab) 650 mg PO Q8 [facility] Last Admin: 07/29/17 22:00 Dose: 650 mg - Labs Labs: 07/29/17 06:25 07/29/17 06:25 PT 11.6 SECONDS (9.7-12.2) 07/20/17 18:03 INR 1.0 07/20/17 18:03 APTT 40 SECONDS (21-34) H D 07/21/17 01:27 - Constitutional Appears: Chronically Ill - Head Exam Head Exam: ATRAUMATIC, NORMAL INSPECTION, NORMOCEPHALIC - Eye Exam Eye Exam: EOMI, Normal appearance - ENT Exam ENT Exam: Mucous Membranes Moist - Respiratory Exam Respiratory Exam: Clear to Ausculation Bilateral, NORMAL BREATHING PATTERN - Cardiovascular Exam Cardiovascular Exam: REGULAR RHYTHM, +S1, +S2 - GI/Abdominal Exam GI & Abdominal Exam: Soft, Normal Bowel Sounds - Extremities Exam Extremities Exam: Normal Inspection, Tenderness (chronic tenderness) - Back Exam Back Exam: NORMAL INSPECTION - Neurological Exam Neurological Exam: Alert, Awake - Psychiatric Exam Psychiatric exam: Normal Affect, Normal Mood - Skin Skin Exam: Dry, Intact, Normal Color, Warm. absent: Abrasion
--- NOTE | 2017-07-30 09:19 | CP.PCM.PN ---
Subjective - Date & Time of Evaluation Date of Evaluation: 07/29/17 Time of Evaluation: 10:15 - Subjective Subjective: SOB progressive elevation of BUN/Creat post cath CXR -pneumonia + chf Urosepsis Objective - Vital Signs/Intake and Output Vital Signs (last 24 hours): Temp Pulse Resp BP Pulse Ox 97.1 F L 79 20 149/76 98 07/30/17 07:30 07/30/17 07:30 07/30/17 07:30 07/30/17 07:30 07/30/17 07:30 - Medications Medications: Current Medications Acetaminophen (Tylenol 325mg Tab) 650 mg PO Q6 PRN PRN Reason: Pain, moderate (4-7) Last Admin: 07/22/17 12:38 Dose: 650 mg Albuterol/Ipratropium (Duoneb 3 Mg/0.5 Mg (3 Ml) Ud) 3 ml INH RQ6 [facility] Last Admin: 07/30/17 08:57 Dose: Not Given Aspirin (Aspirin Chewable) 81 mg PO DAILY [facility] Last Admin: 07/29/17 10:00 Dose: Not Given Calcium Acetate (Phoslo) 667 mg PO TID [facility] Last Admin: 07/29/17 18:30 Dose: 667 mg Carvedilol (Coreg) 12.5 mg PO BID [facility] Famotidine (Pepcid) 20 mg IVP DAILY [facility] Last Admin: 07/29/17 11:00 Dose: 20 mg Furosemide (Lasix) 40 mg PO DAILY [facility] Gabapentin (Neurontin) 100 mg PO TID [facility] Last Admin: 07/29/17 18:29 Dose: 100 mg Heparin Sodium (Porcine) (Heparin) 5,000 units SC Q8 [facility] Last Admin: 07/30/17 06:49 Dose: Not Given Hydralazine HCl (Apresoline) 10 mg IVP Q6H PRN PRN Reason: Systolic Blood Pressure Last Admin: 07/30/17 04:46 Dose: 10 mg Hydralazine HCl (Apresoline) 100 mg PO Q8H [facility] Last Admin: 07/30/17 04:40 Dose: Not Given Insulin Human Regular (Novolin R) 0 unit SC ACHS [facility] PRN Reason: Protocol Last Admin: 07/29/17 21:59 Dose: Not Given Nitroglycerin (Nitro-Bid 2% Oint) 1 ea TOP Q6H PRN PRN Reason: Pain, severe (8-10) Ondansetron HCl (Zofran Inj) 4 mg IVP Q6 PRN PRN Reason: Nausea/Vomiting Last Admin: 07/26/17 09:58 Dose: 4 mg Promethazine HCl/Codeine (Phenergan/Codeine Oral Syrup) 5 ml PO Q4 PRN PRN Reason: Cough Last Admin: 07/29/17 12:47 Dose: 5 ml Rosuvastatin Calcium (Crestor) 10 mg PO HS [facility] Last Admin: 07/29/17 21:59 Dose: 10 mg Saccharomyces Boulardii (Florastor) 250 mg PO DAILY [facility] Last Admin: 07/29/17 10:00 Dose: Not Given Sodium Bicarbonate (Sodium Bicarbonate Tab) 650 mg PO Q8 [facility] Last Admin: 07/30/17 06:33 Dose: Not Given - Labs Labs: 07/29/17 06:25 07/29/17 06:25 PT 11.6 SECONDS (9.7-12.2) 07/20/17 18:03 INR 1.0 07/20/17 18:03 APTT 40 SECONDS (21-34) H D 07/21/17 01:27 - Constitutional Appears: Non-toxic - Head Exam Head Exam: ATRAUMATIC - Eye Exam Eye Exam: absent: Scleral icterus - Neck Exam Neck Exam: Full ROM - Respiratory Exam Respiratory Exam: Decreased Breath Sounds - Cardiovascular Exam Cardiovascular Exam: REGULAR RHYTHM - GI/Abdominal Exam GI & Abdominal Exam: Soft. absent: Tenderness - Extremities Exam Extremities Exam: absent: Joint Swelling, Pedal Edema Assessment and Plan - Assessment and Plan (Free Text) Assessment: Acute renal failure 2nd to ATN from contrast nephropathy CHF Pneumonia Urosepsis Plan: Renal on board - input well appreciated ATN usually reversible in contrast nephropathy Antibiotic as per PMD
[2017-07-30] MEDS: (Novolin R) Insulin Human Regular 100 units/ml vial SC SCH ×4 (09:52→22:30)
[2017-07-30] MEDS: Saccharomyces Boulardi 250 mg Cap PO SCH (10:43)
[2017-07-30 11:25] LABS: BASO % 0.2 % (0.0-2.0); EOS # 0.1 K/uL (0.0-0.7); EOS % 0.6 % (0.0-4.0); HEMATOCRIT 26.5 % (34.0-47.0); LYMPH # 2.3 K/uL (1.0-4.3); LYMPH % 20.1 % (20.0-40.0); MEAN CELL VOLUME 79.6 fL (81.0-99.0); MEAN CORPUSCULAR HEMOGLOBIN 25.1 pg (27.0-31.0); MEAN CORPUSCULAR HGB CONC 31.6 g/dL (33.0-37.0); MEAN PLATELET VOLUME 7.7 fL (7.2-11.7); MONO # 1.4 K/uL (0.0-0.8); MONO % 12.2 % (0.0-10.0); NRBC % 0.1 % (0.0-2.0); RED CELL DISTRIBUTION WIDTH 23.9 % (11.5-14.5)
[2017-07-30 11:32] LABS: WHITE BLOOD COUNT 11.4 K/uL (4.8-10.8)
--- NOTE | 2017-07-30 11:49 | CP.PCM.PN ---
<Kevin Soler - Last Filed: 07/30/17 13:59> Subjective - Date & Time of Evaluation Date of Evaluation: 07/30/17 Time of Evaluation: 12:01 - Subjective Subjective: PGY2 Note for Dr. Weems This patient wsa seen and examined at bedside this AM; she has no complaints today; denies fevers/chills, ESTEVES, CP, SOB, abdominal pain, N/V/D, dysuria/freq/ urg or lower extremity pain/swelling. Objective - Vital Signs/Intake and Output Vital Signs (last 24 hours): Temp Pulse Resp BP Pulse Ox 97.1 F L 79 20 140/90 98 07/30/17 07:30 07/30/17 07:30 07/30/17 07:30 07/30/17 10:44 07/30/17 07:30 - Medications Medications: Current Medications Acetaminophen (Tylenol 325mg Tab) 650 mg PO Q6 PRN PRN Reason: Pain, moderate (4-7) Last Admin: 07/22/17 12:38 Dose: 650 mg Aspirin (Aspirin Chewable) 81 mg PO DAILY [facility] Last Admin: 07/30/17 10:36 Dose: 81 mg Calcium Acetate (Phoslo) 667 mg PO TID [facility] Last Admin: 07/30/17 10:51 Dose: 667 mg Carvedilol (Coreg) 12.5 mg PO BID [facility] Last Admin: 07/30/17 10:37 Dose: 12.5 mg Famotidine (Pepcid) 20 mg IVP DAILY [facility] Last Admin: 07/30/17 10:51 Dose: 20 mg Furosemide (Lasix) 40 mg PO DAILY [facility] Last Admin: 07/30/17 10:44 Dose: 40 mg Gabapentin (Neurontin) 100 mg PO TID [facility] Last Admin: 07/30/17 10:47 Dose: 100 mg Heparin Sodium (Porcine) (Heparin) 5,000 units SC Q8 [facility] Last Admin: 07/30/17 06:49 Dose: Not Given Hydralazine HCl (Apresoline) 10 mg IVP Q6H PRN PRN Reason: Systolic Blood Pressure Last Admin: 07/30/17 04:46 Dose: 10 mg Hydralazine HCl (Apresoline) 100 mg PO Q8H [facility] Last Admin: 07/30/17 04:40 Dose: Not Given Insulin Human Regular (Novolin R) 0 unit SC ACHS KAZ PRN Reason: Protocol Last Admin: 07/30/17 09:52 Dose: Not Given Nitroglycerin (Nitro-Bid 2% Oint) 1 ea TOP Q6H PRN PRN Reason: Pain, severe (8-10) Ondansetron HCl (Zofran Inj) 4 mg IVP Q6 PRN PRN Reason: Nausea/Vomiting Last Admin: 07/26/17 09:58 Dose: 4 mg Promethazine HCl/Codeine (Phenergan/Codeine Oral Syrup) 5 ml PO Q4 PRN PRN Reason: Cough Last Admin: 07/29/17 12:47 Dose: 5 ml Rosuvastatin Calcium (Crestor) 10 mg PO HS [facility] Last Admin: 07/29/17 21:59 Dose: 10 mg Saccharomyces Boulardii (Florastor) 250 mg PO DAILY [facility] Last Admin: 07/30/17 10:43 Dose: 250 mg Sodium Bicarbonate (Sodium Bicarbonate Tab) 650 mg PO Q8 [facility] Last Admin: 07/30/17 06:33 Dose: Not Given - Labs Labs: 07/30/17 11:07 07/29/17 06:25 PT 11.6 SECONDS (9.7-12.2) 07/20/17 18:03 INR 1.0 07/20/17 18:03 APTT 40 SECONDS (21-34) H D 07/21/17 01:27 - Constitutional Appears: Non-toxic - Head Exam Head Exam: ATRAUMATIC - Eye Exam Pupil Exam: PERRL - ENT Exam ENT Exam: Mucous Membranes Moist - Neck Exam Neck Exam: Full ROM - Respiratory Exam Respiratory Exam: Clear to Ausculation Bilateral - Cardiovascular Exam Cardiovascular Exam: REGULAR RHYTHM - GI/Abdominal Exam GI & Abdominal Exam: Soft, Normal Bowel Sounds - Extremities Exam Extremities Exam: Full ROM. absent: Calf Tenderness - Back Exam Back Exam: absent: CVA tenderness (L), CVA tenderness (R) - Neurological Exam Neurological Exam: Awake - Psychiatric Exam Psychiatric exam: Normal Affect - Skin Skin Exam: Warm Assessment and Plan - Assessment and Plan (Free Text) Assessment: Dyspnea on exertion secondary to CHF vs. Pneumonia Cardio Consult: Dr. Pearl --> help appreciated - Echo (07/17/17):Grade II diastolic dysfunction; EF 55% - Chest X-ray (07/24): Moderate venous congestion; right hilar prominence and consolidation; mild patchy left basilar opacity. - f/u Strep pneumonia urine - Legionella urine: Negative - Mycoplasma IgM: Negative - Zosyn started 07/24 - discontinued 07/28/17 - Duonebs PRN shortness of breath 07/[address] Figueredo: check cxr r/o chf vs pneumonia, patient given kayexalate 15 gm po x 1 07/29 CXR: bibasilar opacities right is greater than left. small effusions seem to have improved as well. . patchy opacity at mass seen in right upper lung field in suprahilar region. 07/30: patient is feeling better; awaiting Dr. Ronnell romero for antibiotics; patient has been off abx for 24 hours Diastolic CHF (Type II) Cardio Consult: Dr. Pearl --> help appreciated - Echo (07/17/17):Grade II diastolic dysfunction; EF 55% - Chest X-ray (07/24): Moderate venous congestion; right hilar prominence and consolidation; mild patchy left basilar opacity. - EUGENIA (07/20/2017) Showed 0.184 inc. to 0.196 and began down-trending - EKG (07/20/17) NSR - Lipid panel -WNL - Stress Test (07/20/17) - Showed defect possibly representing ischemia - Cardiac Cath (07/21/17) - Angiographically normal coronaries and normal LV systolic function Medications: * Lasix 40 IV BID discontinued secondary to JACQUES * Crestor 10 PO HS * Aldactone 25 PO BID discontinued secondary to JACQUES * Lisinopril 40 PO QD discontinued secondary to JACQUES * Added Coreg 3.125 BID per Cardio * Added Duonebs per Cardio * Added Nitropaste per Cardio. JACQUES Likely secondary to medications and dye from cardiac cath Nephro consult: Dr. Najera --> help appreciated - urine sodium 32, urine osmolality 241(low), urine creatinine 65.6 - f/u urine chloride - Serum osmolality 302 - Renal US 07/23 - mild increased echogenicity of the bilateral renal parenchymal cortices suggestive for medical renal disease (please see full report) - Chest X-ray (07/24): Moderate venous congestion; right hilar prominence and consolidation; mild patchy left basilar opacity. - Discussed with Dr. Figueredo: Discontinue Lisinopril, aldactone and lasix - Spoke with Dr. Figueredo: patient is retaining urine- he stated to continue straight cath - Urine output in the AM of 07/28/17: 450cc - Esosinophils in urine: Negative UTI (urinary tract infection);resolved - First UA contaminated - Repeat UA shows trace Leuk Es. - Urine Culture- E.Coli sensitive to all antibiotics tested Stool Occult Blood Positive GI consult: Dr. Negron --> help appreciated - CEA 2.2 - CA125: 120 (high) - CA19-9: 23 - F/U stool for C diff, stool culture, leukocytes, ova and parasites -07/29 Barium Swallow: serpentine radioopaque density overlying left parasagittal upper true pelvis consistent with intrauterine device. Residual stool limiting evaluation. no definitive filling defects seen within contrast column. no apple core lesions, no persistent intraluminal or extrinsic filling defects, f/u colonoscopy recommended. Diarrhea; resolved GI consult: Dr. Negron --> help appreciated - Abd/Pelvis CT: Small bilateral pleural effusions and associated consolidations. No visible pneumothorax. Partially imaged cardiomegaly. Small hiatal hernia/ distal esophageal wall thickening. Nodular hepatic contour ; correlate clinically for cirrhosis. Punctate hepatic calcification, right inferior lobe. Heterogeneous hepatic parenchyma, particularly within the left lower lobe. If indicated, suggest further evaluation with dedicated liver CT. Gallbladder wall thickening/pericholecystic edema. Correlate clinically. Suggest right upper quadrant ultrasound. Fluid within the small and large bowel ; correlate for diarrheal illness. Diverticulum of the proximal duodenum. Scattered diverticulosis without CT evidence of acute diverticulitis. Thickened urinary bladder wall atrophy portion to level of underdistention. Recommend correlation with urinalysis. Coarse uterine calcifications. Trace fluid within the pericolic gutters. - Floraster - Metronidazole 500mg PO q8h - discontinued 07/28/17 - F/U stool for C diff, stool culture, leukocytes, ova and parasites Chronic Leg Pain; stable - Bilateral Venous Doppler (07/25/17): Negative for DVT - Venous doppler (07/17/17)- NEGATIVE for DVT - Gabapentin 100mg PO TID Microcytic Anemia;chronic Hematology consult: Dr. Sullivan --> help appreciated - Ferous Sulfate 325 BID - Stool occult blood positive - f/u Immunofixation, protein electrophoresis - Free [place]: 81.8 - Free [place]: 41.9 - [place]/Lambda: 1.95 Abdominal Pain possibly secondary to uterine fibroids/retained IUD [employer] Consult: Dr. Lozoya --> help appreciated - Transvaginal US showed fibroids but did not identify IUD - CA125: 120 (high) - Outpatient RN GYN follow for possible IUD and uterine fibroids; outpatient History Hypertension;stable Medications: * Lisinopril 40mg PO QD discontinued secondary to JACQUES * Lasix 40 IV BID discontinued secondary to JACQUES * Coreg 3.125 BID per Cardio * Hydralazine 25 PO QID [facility]--> increased to hydralazine 100mg PO TID * Nitropaste History of Diabetes;chronic - HgBA1c = 7.4 - ISS High - Accuchecks Rash possibly secondary to ABx - All antibiotics discontinued 07/28/17 - Benadryl 25mg IV PRN - Monitor Hyperphosphotemia; stable - likely secondary to JACQUES - Spoke with Dr. Figueredo to continue Phoslo 667mg but change to TID Prophylactic measure - Heparin 5000U SC Q8 - Zofran 4mg IVP Q6PRN - Pepcid 20mg PO daily - Patient can Ambulate Case discussed with Dr. Weems <Kate Weems V - Last Filed: 07/30/17 15:13> Objective - Vital Signs/Intake and Output Vital Signs (last 24 hours): Temp Pulse Resp BP Pulse Ox 97.1 F L 79 20 140/90 98 07/30/17 07:30 07/30/17 08:00 07/30/17 07:30 07/30/17 10:44 07/30/17 07:30 Intake and Output: 07/30/17 07/30/17 06:59 18:59 Output Total 625 Balance -625 - Medications Medications: Current Medications Acetaminophen (Tylenol 325mg Tab) 650 mg PO Q6 PRN PRN Reason: Pain, moderate (4-7) Last Admin: 07/22/17 12:38 Dose: 650 mg Aspirin (Aspirin Chewable) 81 mg PO DAILY [facility] Last Admin: 07/30/17 10:36 Dose: 81 mg Bisacodyl (Dulcolax) 5 mg PO ONCE ONE Stop: 07/30/17 14:55 Calcium Acetate (Phoslo) 667 mg PO TID [facility] Last Admin: 07/30/17 13:36 Dose: 667 mg Carvedilol (Coreg) 12.5 mg PO BID [facility] Last Admin: 07/30/17 10:37 Dose: 12.5 mg Famotidine (Pepcid) 20 mg IVP DAILY [facility] Last Admin: 07/30/17 10:51 Dose: 20 mg Furosemide (Lasix) 40 mg PO DAILY [facility] Last Admin: 07/30/17 10:44 Dose: 40 mg Gabapentin (Neurontin) 100 mg PO TID [facility] Last Admin: 07/30/17 13:36 Dose: 100 mg Heparin Sodium (Porcine) (Heparin) 5,000 units SC Q8 [facility] Last Admin: 07/30/17 13:34 Dose: 5,000 units Hydralazine HCl (Apresoline) 10 mg IVP Q6H PRN PRN Reason: Systolic Blood Pressure Last Admin: 07/30/17 04:46 Dose: 10 mg Hydralazine HCl (Apresoline) 100 mg PO Q8H [facility] Last Admin: 07/30/17 12:32 Dose: 100 mg Insulin Human Regular (Novolin R) 0 unit SC ACHS [facility] PRN Reason: Protocol Last Admin: 07/30/17 12:51 Dose: 2 unit Nitroglycerin (Nitro-Bid 2% Oint) 1 ea TOP Q6H PRN PRN Reason: Pain, severe (8-10) Ondansetron HCl (Zofran Inj) 4 mg IVP Q6 PRN PRN Reason: Nausea/Vomiting Last Admin: 07/26/17 09:58 Dose: 4 mg Promethazine HCl/Codeine (Phenergan/Codeine Oral Syrup) 5 ml PO Q4 PRN PRN Reason: Cough Last Admin: 07/29/17 12:47 Dose: 5 ml Rosuvastatin Calcium (Crestor) 10 mg PO HS [facility] Last Admin: 07/29/17 21:59 Dose: 10 mg Saccharomyces Boulardii (Florastor) 250 mg PO DAILY [facility] Last Admin: 07/30/17 10:43 Dose: 250 mg Sodium Bicarbonate (Sodium Bicarbonate Tab) 650 mg PO Q8 [facility] Last Admin: 07/30/17 13:33 Dose: 650 mg - Labs Labs: 07/30/17 11:07 07/30/17 11:07 PT 11.6 SECONDS (9.7-12.2) 07/20/17 18:03 INR 1.0 07/20/17 18:03 APTT 40 SECONDS (21-34) H D 07/21/17 01:27 - Constitutional Appears: No Acute Distress - Head Exam Head Exam: NORMAL INSPECTION - Eye Exam Eye Exam: EOMI. absent: Nystagmus, Scleral icterus - Respiratory Exam Respiratory Exam: Clear to Ausculation Bilateral, Rales (over left lung, improved), Rhonchi (left lung improved), NORMAL BREATHING PATTERN. absent: Wheezes, Respiratory Distress, Stridor - Cardiovascular Exam Cardiovascular Exam: +S1, +S2 - GI/Abdominal Exam GI & Abdominal Exam: absent: Distended, Firm, Guarding, Rigid, Tenderness, Rebound - Extremities Exam Extremities Exam: absent: Pedal Edema - Neurological Exam Neurological Exam: Alert, Oriented x3 Neuro motor strength exam: Left Upper Extremity: 5, Right Upper Extremity: 5, Left Lower Extremity: 5, Right Lower Extremity: 5 - Psychiatric Exam Psychiatric exam: Normal Mood - Skin Additional comments: macular rash over the breast, abdomen, and back ecchymoses over the abdomen Attending/Attestation - Attestation I have personally seen and examined this patient.: Yes I have fully participated in the care of the patient.: Yes I have reviewed all pertinent clinical information, including history, physical exam and plan: Yes Notes (Text): Patient seen, examined and case discussed with day-time resident. patient seen, examined, with assistance from nurseSlama. Patient has not urinated on her own. Instructed nurse to straight cath her, about 600cs urine removed. Patient has also not had a bowel movement for three days. Patient ordered for dose of Ducolax. Will need to follow-up with GI in regards to Barium enema result; if patient needs inpatient colonoscopy or not. Will need to follow-up with infectious disease in regards to antibiotic for pneumonia given recent allergic reaction Patient's rash over the chest, abdomen, and pelvis is improving. patient does not complain of itchiness. Patient continues to have urinary retention; PRN urinary straight cath. Blood pressure better controlled. Assessment/Plan 1) Allergic Reaction * Given Benadryl 25mg IV and Solumderol 40mg IV X1 07/27; no oropharygneal involvement; itchiness over the right lower quadrant with skin rash noted; rash spread to chest, abdomen, back, flat, macular rash. Ordered for Benadryl 25mg IV Q6H and Solumedrol 40mg IV Q 8H X1 07/28 * Will stop Zosyn/Azithromycin/Flagy 07/28-->not suspecting Rocephin/Zosyn given patient did not have rash during those days those antibiotics were on. * Rash improving * Will need to follow-up with ID for antibiotic 2) Hypertension * Improving * Coreg 12.5 mg PO BID * Hydralazine 10mg IV Q 6HR SBP >160 * Hydralazine 100mg PO Q8H * Lasix 40mg PO daily * c/w norvasc 5mg PO daily * monitor blood pressure * Patient is off warren inhibitor/arb/aldactone secondary to acute renal insufficiency 3) Dyspnea on exertion 2/2 to Diastolic CHF (Type II) * Likely 2/2 to new onset CHF * Cardio Dr. Pearl Consult - recs appreciated * Echo - shows Grade II diastolic dysfunction. * CXR - Moderate pulm venous congestion * CXR (07/24): moderate venous congestion, Right hilar prominence and consolidation. Mild patchy left basilar opacity, Trace left pleural effusion. tortuous ectatic aorta, cardiomegaly. * EUGENIA NEGATIVE x3 * EKG (07/20/17) NSR. * Lipid panel -WNL * Stress Test (07/20/17) - Showed defect possibly representing ischemia * Cardiac Cath (07/21/17) - Angiographically normal coronaries and normal LV systolic function Meds: * Lasix 40mg IV BID on hold secondary to JACQUES on 07/23 * Lasix 40mg IV daily * Crestor 10mg PO HS * Aldactone 25 PO BID on hold secondary to JACQUES on 07/23 * Lisinopril 40 PO QD on hold secondary to JACQUES on 07/23 * increased Coreg 12.5mg BID 4) Pneumonia * CXR (07/24): moderate venous congestion, Right hilar prominence and consolidation. Mild patchy left basilar opacity, Trace left pleural effusion. tortuous ectatic aorta, cardiomegaly. * off Zosyn 2.25 IV Q 8 H and Azithromycin 500mg IV q daily 07/28 due to allergic response * Duonebs PRN shortness of breath * Promethazine w codeine 5 ml PO Q 4H PRn cough * Order for Strep pneumonia urine, Legionella urine: negative and Mycoplasma IgM : negative * Infectious Disease (Dr. Reynaga) on consult-->f/u recommendations 5) Urinary Tract Infection * 07/18 contaminated * 07/21 E. Coli * Completed 2nd dose of Rocephin; changed to Zosyn 2.25 g IVPB Q8H (active since 07/24/17) * 07/25 Urine culture: no growth * 07/28 Urine culture: no growth * urine eosinophil: negative 6) JACQUES; urinary retention * Nephrology consult - Dr. Aniya Najera - help appreciated * urine sodium 32, urine osmolality 241(low), urine creatinine 65.6, Serum osmolality 302 * Renal US 07/23/17 - mild increased echogenicity of the bilateral renal parenchymal cortices suggestive for medical renal disease (please see full report) * Holding lisinopril, aldactone and lasix until 07/25/17 to assess affect on creatinine * Urine culture: E. Coli * stop Zosyn 2.25 g IVPB Q8H (active since 07/24/17) on 07/28/17 * Repeat urine culture: no growth * urine eosinophil: negative * Bladder scan: 300 cc urinary retention 07/27-->needed to be straight cath today; no mcintosh * Bladder scan: 900 cc urinary retention 07/28-->needed to be straight cath * Discussed with nephrology 07/28 who is aware, recommended for PRN Straight cath * Bladder scan done,shows 319 ml of urine, 07/29 straight cath done,obtained 300 ml of dark francesco urine. * Straight cath 600 cc removed, 07/30 straight cath 7) Microcytic Anemia * Ferrlecit 125mg IVPB daily (07/21-07/29) * Stool occult blood positiv * Hematology consult - Dr. Sullivan - help appreciated * hypoproliferative erythroid response * responding to IV iron * element of anemia of CKD; s/p Procrit * monoclonal protein w/u sent * hemoglobinopathy evaluation sen * f/u SPEP/IPEP/[place] [employer] results * GI consult - Dr. Negron - help appreciated * CEA: 2.2 * CA 19-9: 23.0 * Elevated CA 125: 120 * Barium enema for 07/29/17-->study is limited due to poor preparation with residual stool throughout most of the colon. No definitive persistent intraluminal or extrinisc filling defects. No apple core lesions. Colonic mucosa poor delineated due to presence of residual stool. f/u colonoscopy recommend-->will need to f/u with GI 8) Stool Occult Blood * GI consult - Dr. Negron - help appreciated * CEA 2.2 * Elevated CA 125: 120 * Barium enema for 07/29/17-->study is limited due to poor preparation with residual stool throughout most of the colon. No definitive persistent intraluminal or extrinisc filling defects. No apple core lesions. Colonic mucosa poor delineated due to presence of residual stool. f/u colonoscopy recommend-->will need to f/u with GI * F/U stool for C diff, stool culture, leukocytes, ova and parasites--Pending * Patient has not had C. Dif collected because has not provided sample * Patient reports loose stool; on IV abx for UTI 9) Elevated CA 125; Fibroid; retained IUD * TV US showed fibroids but did not identify IUD * Elevated CA 125 * Ob-[employer] hospitalist service consulted-->help appreciated * per Dr. Yu's note "It was explained to the patient, IUD is confirmed. It was also explained to the patient, attempts at removing the IUD will most likely require examination under anesthesia. In addition, patient would have to be consented for possible surgery including but not limited to exploratory laparotomy and the possible complications that may develop. Patient expressed an understanding and does not desire to proceed with attempt at removing her IUD. Patient stated on several occasions, that the IUD has caused her problems over the past 40 years" * Patient is clinically stable from their standpoint 10) Leg pain * Venous doppler: negative * Arterial doppler: negative * Gabapentin 100mg PO TID 11) Diabetes * HgBA1c = 7.4 * ISS High * Accuchecks QAC and HS 12) Diarrhea--Resolved Constipation * GI (Dr. Negron) on board-->help appreciated * CT Abdomen/Pelvis (07/26/17): small bilateral pleural effusions and associated consolidations. No visible pneumothorax. Partial imaged cardiomegaly. Nodular hepatic contour. Punctuate hepatic calcification, right inferior lobe. Gallbladder wall thickening/pericholecystic edema. Fluid within small and large bowel. scatter diverticulosis without CT evidence of acute diverticulitis. Thickened urinary bladder wall atrophy portion to level of underdistention. coarse uterine calcifications * Abdomen US: cholelithiasis, cirrhosis without infiltration. incidental findins * Has not had diarrhea for three days * Barium enema for 07/29/17-->study is limited due to poor preparation with residual stool throughout most of the colon. No definitive persistent intraluminal or extrinisc filling defects. No apple core lesions. Colonic mucosa poor delineated due to presence of residual stool. f/u colonoscopy recommend-->will need to f/u with GI 13) Prophylactic measure * Heparin 5000U SC Q8H * Ambulate * Zofran 4mg IVP Q6 PRN nausea * pepcid 20mg IV qdaily * patient is on liquid diet s/p barium enema Disposition: * Infectious Disease consult given pneumonia, and recent allergic reaction to antibiotics * Blood pressure better controlled * Follow-up with GI. Patient has been constipated for three days.
[2017-07-30 11:55] LABS: ALB/GLOB RATIO 1.4 (1.0-2.1); BILIRUBIN,TOTAL 0.5 mg/dL (0.2-1.3); CALCIUM 7.6 mg/dl (8.6-10.4); MAGNESIUM 2.3 mg/dL (1.6-2.3); PHOSPHOROUS 5.3 mg/dL (2.5-4.5); POTASSIUM 4.4 mmol/L (3.6-5.2); TOTAL PROTEIN 6.1 g/dL (6.3-8.3)
[2017-07-30] MEDS ORDERED: Bisacodyl 5mg EC Tab PO ONE (15:00)
--- NOTE | 2017-07-30 16:55 | CARD ---
APPROVED REPORT EKG Measurement Heart [id number] QT0T0 QTc0 <Conclusion> No QRS complexes found, no ECG analysis possible
--- NOTE | 2017-07-30 21:16 | CP.PCM.CON ---
History of Present Illness - History of Present Illness History of Present Illness: dictated Past Patient History - Infectious Disease Hx of Infectious Diseases: None - Past Medical History & Family History Past Medical History?: Yes - Past Social History Smoking Status: Never Smoked - CARDIAC Hx Cardiac Disorders: Yes Hx Hypercholesterolemia: Yes Hx Hypertension: Yes - PULMONARY Hx Respiratory Disorders: No - NEUROLOGICAL Hx Neurological Disorder: No - HEENT Hx HEENT Problems: No - RENAL Hx Chronic Kidney Disease: No - ENDOCRINE/METABOLIC Hx Endocrine Disorders: Yes Hx Diabetes Mellitus Type 2: Yes - HEMATOLOGICAL/ONCOLOGICAL Hx Blood Disorders: Yes Hx Anemia: Yes - INTEGUMENTARY Hx Dermatological Problems: No - MUSCULOSKELETAL/RHEUMATOLOGICAL Hx Musculoskeletal Disorders: No Hx Falls: No - GASTROINTESTINAL Hx Gastrointestinal Disorders: No - GENITOURINARY/GYNECOLOGICAL Hx Genitourinary Disorders: No - PSYCHIATRIC Hx Psychophysiologic Disorder: No Hx Substance Use: No - SURGICAL HISTORY Hx Surgeries: No - ANESTHESIA Hx Anesthesia: No Meds Allergies/Adverse Reactions: Allergies Allergy/AdvReac Type Severity Reaction Status Date / Time metronidazole [From Flagyl] Allergy RASH Verified 07/28/17 14:39 - Medications Medications: Current Medications Acetaminophen (Tylenol 325mg Tab) 650 mg PO Q6 PRN PRN Reason: Pain, moderate (4-7) Last Admin: 07/22/17 12:38 Dose: 650 mg Amlodipine Besylate (Norvasc) 5 mg PO DAILY [facility] Last Admin: 07/30/17 16:00 Dose: 5 mg Aspirin (Aspirin Chewable) 81 mg PO DAILY [facility] Last Admin: 07/30/17 10:36 Dose: 81 mg Calcium Acetate (Phoslo) 667 mg PO TID [facility] Last Admin: 07/30/17 18:47 Dose: 667 mg Carvedilol (Coreg) 12.5 mg PO BID [facility] Last Admin: 07/30/17 18:47 Dose: 12.5 mg Famotidine (Pepcid) 20 mg IVP DAILY [facility] Last Admin: 07/30/17 10:51 Dose: 20 mg Furosemide (Lasix) 40 mg PO DAILY [facility] Last Admin: 07/30/17 10:44 Dose: 40 mg Gabapentin (Neurontin) 100 mg PO TID [facility] Last Admin: 07/30/17 18:47 Dose: 100 mg Hydralazine HCl (Apresoline) 10 mg IVP Q6H PRN PRN Reason: Systolic Blood Pressure Last Admin: 07/30/17 04:46 Dose: 10 mg Hydralazine HCl (Apresoline) 100 mg PO Q8H [facility] Last Admin: 07/30/17 12:32 Dose: 100 mg Insulin Human Regular (Novolin R) 0 unit SC ACHS KAZ PRN Reason: Protocol Last Admin: 07/30/17 17:30 Dose: 2 unit Nitroglycerin (Nitro-Bid 2% Oint) 1 ea TOP Q6H PRN PRN Reason: Pain, severe (8-10) Ondansetron HCl (Zofran Inj) 4 mg IVP Q6 PRN PRN Reason: Nausea/Vomiting Last Admin: 07/26/17 09:58 Dose: 4 mg Promethazine HCl/Codeine (Phenergan/Codeine Oral Syrup) 5 ml PO Q4 PRN PRN Reason: Cough Last Admin: 07/29/17 12:47 Dose: 5 ml Rosuvastatin Calcium (Crestor) 10 mg PO HS [facility] Last Admin: 07/29/17 21:59 Dose: 10 mg Saccharomyces Boulardii (Florastor) 250 mg PO DAILY [facility] Last Admin: 07/30/17 10:43 Dose: 250 mg Sodium Bicarbonate (Sodium Bicarbonate Tab) 650 mg PO Q8 [facility] Last Admin: 07/30/17 13:33 Dose: 650 mg Results - Vital Signs Recent Vital Signs: Last Vital Signs Temp 97.2 F L 07/30/17 16:07 Pulse 71 07/30/17 16:07 Resp 20 07/30/17 16:07 BP 130/70 07/30/17 18:47 Pulse Ox 97 07/30/17 16:07 - Labs Result Diagrams: 07/30/17 11:07 07/30/17 11:07 Labs: Laboratory Results - last 24 hr 07/24/17 07/29/17 07/30/17 08:36 21:44 06:54 WBC RBC Hgb Hct MCV MCH MCHC RDW Plt Count MPV Neut % (Auto) Lymph % (Auto) [place] % (Auto) Eos % (Auto) Baso % (Auto) Neut # Lymph # Weston # Eos # Baso # Sodium Potassium Chloride Carbon Dioxide Anion Gap BUN Creatinine Est GFR ( Amer) Est GFR (Non-Af Amer) POC Glucose (mg/dL) 283 H 171 H Random Glucose Calcium Phosphorus Magnesium Total Bilirubin AST ALT Alkaline Phosphatase Total Protein Albumin Globulin Albumin/Globulin Ratio Ur Strep pneumoniae Ag Not detected 07/30/17 07/30/17 07/30/17 11:07 11:07 11:58 WBC 11.4 H D RBC 3.32 L Hgb 8.4 L Hct 26.5 L MCV 79.6 L MCH 25.1 L MCHC 31.6 L RDW 23.9 H Plt Count 215 MPV 7.7 Neut % (Auto) 66.9 Lymph % (Auto) 20.1 Weston % (Auto) 12.2 H Eos % (Auto) 0.6 Baso % (Auto) 0.2 Neut # 7.6 H Lymph # 2.3 Weston # 1.4 H Eos # 0.1 Baso # 0.0 Sodium 124 L Potassium 4.4 Chloride 97 L Carbon Dioxide 16 L Anion Gap 15 BUN 49 H Creatinine 3.7 H Est GFR ( Amer) 14 Est GFR (Non-Af Amer) 12 POC Glucose (mg/dL) 165 H Random Glucose 126 H Calcium 7.6 L Phosphorus 5.3 H Magnesium 2.3 Total Bilirubin 0.5 AST 26 ALT 27 Alkaline Phosphatase 80 Total Protein 6.1 L Albumin 3.6 Globulin 2.6 Albumin/Globulin Ratio 1.4 Ur Strep pneumoniae Ag 07/30/17 16:53 WBC RBC Hgb Hct MCV MCH MCHC RDW Plt Count MPV Neut % (Auto) Lymph % (Auto) Weston % (Auto) Eos % (Auto) Baso % (Auto) Neut # Lymph # Weston # Eos # Baso # Sodium Potassium Chloride Carbon Dioxide Anion Gap BUN Creatinine Est GFR ( Amer) Est GFR (Non-Af Amer) POC Glucose (mg/dL) 195 H Random Glucose Calcium Phosphorus Magnesium Total Bilirubin AST ALT Alkaline Phosphatase Total Protein Albumin Globulin Albumin/Globulin Ratio Ur Strep pneumoniae Ag
[2017-07-31] MEDS: Albuterol-Ipratrop 3 mg / 0.5 (3 ml) UD INH SCH ×4 (01:41→19:48)
--- NOTE | 2017-07-31 05:42 | CON ---
INFECTIOUS DISEASE CONSULTATION DATE: REQUESTED BY: *------*. HISTORY OF PRESENT ILLNESS: This patient is a 81-year-old female, she was admitted 13 days back with shortness of breath, was probably in congestive heart failure, and I am asked to rule out pneumonia, at this time she has been hypertensive. She speaks only Azeri. The daughter is at the bedside, she wants to take her home if she is better. The patient denies any pain anywhere, denies any trouble breathing. She states she is not allergic to anything, but she has rash on the right abdomen, which is maculopapular and appears to be drug rash. She did receive antibiotics recently, which were Zosyn and Flagyl and she was on albuterol, which was not given. MEDICATIONS: She is on medications, which are Apresoline, Novolin R, Nitro-Bid, Zofran, Phenergan, codeine, Crestor, Florastor, Saccharomyces. PHYSICAL EXAMINATION: VITAL SIGNS: On examination, I find her T-max is 97.2, pulse is 71, blood pressure 124/69, respirations are 20. HEENT: Head is atraumatic, normocephalic. NECK: Supple. LUNGS: Clear, decreased breath sounds bilaterally. HEART: S1 and S2 is regular. ABDOMEN: Soft, nontender. No guarding, no rigidity present. She does have ecchymosis in the abdominal wall and macular rash. EXTREMITIES: Have minimal edema. She seems to be doing well. Her hemoglobin is 8.4, WBC is 11.4, and BUN is 15, creatinine is 3.7. She is in renal failure. They did Legionella, Mycoplasma, Strep pneumoniae, influenza, all are negative. She had urine,which had E. coli, but that cleared, and right now they did chest x-ray on 07/29/2017, which shows the previously bibasilar, right greater than left, improved; however, patchy opacity is seen in the right upper lung field in the suprahilar region, small effusions. So at this time, I think I am going to wait and watch, and I do not want to put on antibiotics. I think it is more a component of her failure and pulmonary hypertension, and just monitor the white count at this time. There was some history of falls, so she needs to be monitored closely and keep off the antibiotics. Amish Reynaga MD
[2017-07-31] MEDS: (Novolin R) Insulin Human Regular 100 units/ml vial SC SCH ×4 (08:23→23:26)
[2017-07-31 09:10] LABS: BASO % 0.3 % (0.0-2.0); EOS # 0.2 K/uL (0.0-0.7); EOS % 2.1 % (0.0-4.0); LYMPH # 1.7 K/uL (1.0-4.3); MEAN CELL VOLUME 78.6 fL (81.0-99.0); MEAN CORPUSCULAR HEMOGLOBIN 25.7 pg (27.0-31.0); MEAN CORPUSCULAR HGB CONC 32.7 g/dL (33.0-37.0); MEAN PLATELET VOLUME 7.8 fL (7.2-11.7); MONO # 0.9 K/uL (0.0-0.8); MONO % 12.3 % (0.0-10.0); NRBC % 0.1 % (0.0-2.0); RED CELL DISTRIBUTION WIDTH 25.3 % (11.5-14.5); WHITE BLOOD COUNT 7.6 K/uL (4.8-10.8)
--- NOTE | 2017-07-31 09:45 | CP.PCM.PN ---
<Kevin Soler - Last Filed: 07/31/17 12:26> Subjective - Date & Time of Evaluation Date of Evaluation: 07/31/17 Time of Evaluation: 09:43 - Subjective Subjective: PGY2 Note for Dr. Weems This patient was seen and examined at bedside this AM; she is more awake/alert today and responsive. States she feels much better; denies fevers/chills, ESTEVES, CP , SOB, abdominal pain, N/V/D, dysuira/freq/urg, or lower extremity pain swelling. The patient is disoriented to place, time, and thinks she is much younger than she actually is but is otherwise responsive to normal questioning. Objective - Vital Signs/Intake and Output Vital Signs (last 24 hours): Temp Pulse Resp BP Pulse Ox 98.8 F 73 20 142/64 95 07/31/17 04:34 07/31/17 04:34 07/31/17 04:34 07/31/17 04:34 07/31/17 04:34 Intake and Output: 07/31/17 07/31/17 06:59 18:59 Intake Total 370 Output Total 750 Balance -380 - Medications Medications: Current Medications Acetaminophen (Tylenol 325mg Tab) 650 mg PO Q6 PRN PRN Reason: Pain, moderate (4-7) Last Admin: 07/22/17 12:38 Dose: 650 mg Albuterol/Ipratropium (Duoneb 3 Mg/0.5 Mg (3 Ml) Ud) 3 ml INH RQ6 [facility] Last Admin: 07/31/17 07:38 Dose: 3 ml Amlodipine Besylate (Norvasc) 5 mg PO DAILY [facility] Last Admin: 07/30/17 16:00 Dose: 5 mg Aspirin (Aspirin Chewable) 81 mg PO DAILY [facility] Last Admin: 07/30/17 10:36 Dose: 81 mg Calcium Acetate (Phoslo) 667 mg PO TID [facility] Last Admin: 07/30/17 18:47 Dose: 667 mg Carvedilol (Coreg) 12.5 mg PO BID [facility] Last Admin: 07/30/17 18:47 Dose: 12.5 mg Famotidine (Pepcid) 20 mg IVP DAILY [facility] Last Admin: 07/30/17 10:51 Dose: 20 mg Furosemide (Lasix) 40 mg PO DAILY [facility] Last Admin: 07/30/17 10:44 Dose: 40 mg Gabapentin (Neurontin) 100 mg PO TID [facility] Last Admin: 07/30/17 18:47 Dose: 100 mg Heparin Sodium (Porcine) (Heparin) 5,000 units SC Q8 [facility] Last Admin: 07/31/17 05:47 Dose: 5,000 units Hydralazine HCl (Apresoline) 10 mg IVP Q6H PRN PRN Reason: Systolic Blood Pressure Last Admin: 07/30/17 04:46 Dose: 10 mg Hydralazine HCl (Apresoline) 100 mg PO Q8H [facility] Last Admin: 07/31/17 04:35 Dose: 100 mg Insulin Human Regular (Novolin R) 0 unit SC ACHS [facility] PRN Reason: Protocol Last Admin: 07/31/17 08:23 Dose: Not Given Nitroglycerin (Nitro-Bid 2% Oint) 1 ea TOP Q6H PRN PRN Reason: Pain, severe (8-10) Ondansetron HCl (Zofran Inj) 4 mg IVP Q6 PRN PRN Reason: Nausea/Vomiting Last Admin: 07/26/17 09:58 Dose: 4 mg Promethazine HCl/Codeine (Phenergan/Codeine Oral Syrup) 5 ml PO Q4 PRN PRN Reason: Cough Last Admin: 07/29/17 12:47 Dose: 5 ml Rosuvastatin Calcium (Crestor) 10 mg PO HS [facility] Last Admin: 07/30/17 23:00 Dose: 10 mg Saccharomyces Boulardii (Florastor) 250 mg PO DAILY [facility] Last Admin: 07/30/17 10:43 Dose: 250 mg Sodium Bicarbonate (Sodium Bicarbonate Tab) 650 mg PO Q8 [facility] Last Admin: 07/31/17 05:46 Dose: 650 mg - Labs Labs: 07/31/17 08:49 07/30/17 11:07 PT 11.6 SECONDS (9.7-12.2) 07/20/17 18:03 INR 1.0 07/20/17 18:03 APTT 40 SECONDS (21-34) H D 07/21/17 01:27 - Constitutional Appears: Non-toxic - Head Exam Head Exam: ATRAUMATIC - Eye Exam Eye Exam: EOMI Pupil Exam: PERRL - ENT Exam ENT Exam: Mucous Membranes Dry - Neck Exam Neck Exam: Full ROM. absent: Lymphadenopathy - Respiratory Exam Respiratory Exam: NORMAL BREATHING PATTERN. absent: Clear to Ausculation Bilateral (crackles), Rhonchi, Wheezes - Cardiovascular Exam Cardiovascular Exam: REGULAR RHYTHM, +S1, +S2 - GI/Abdominal Exam GI & Abdominal Exam: Soft, Normal Bowel Sounds - Rectal Exam Rectal Exam: Deferred - Extremities Exam Extremities Exam: Full ROM. absent: Calf Tenderness - Back Exam Back Exam: NORMAL INSPECTION. absent: CVA tenderness (L), CVA tenderness (R) - Neurological Exam Neurological Exam: Alert, Awake. absent: Oriented x3 - Psychiatric Exam Psychiatric exam: Normal Affect - Skin Skin Exam: Warm Assessment and Plan - Assessment and Plan (Free Text) Assessment: Dyspnea on exertion secondary to CHF vs. Pneumonia Cardio Consult: Dr. Pearl --> help appreciated - Echo (07/17/17):Grade II diastolic dysfunction; EF 55% - Chest X-ray (07/24): Moderate venous congestion; right hilar prominence and consolidation; mild patchy left basilar opacity. - f/u Strep pneumonia urine - Legionella urine: Negative - Mycoplasma IgM: Negative - Zosyn started 07/24 - discontinued 07/28/17 - Duonebs PRN shortness of breath 07/[address] Figueredo: check cxr r/o chf vs pneumonia, patient given kayexalate 15 gm po x 1 07/29 CXR: bibasilar opacities right is greater than left. small effusions seem to have improved as well. . patchy opacity at mass seen in right upper lung field in suprahilar region. 07/30: patient is feeling better; awaiting Dr. Reynaga recjuan for antibiotics; patient has been off abx for 24 hours 07/31: No Abx ordered by Dr. Reynaga; patient has no WBC, no fevers today. pending CMP Diastolic CHF (Type II);chronic and stable Cardio Consult: Dr. Pearl --> help appreciated - Echo (07/17/17):Grade II diastolic dysfunction; EF 55% - Chest X-ray (07/24): Moderate venous congestion; right hilar prominence and consolidation; mild patchy left basilar opacity. - EUGENIA (07/20/2017) Showed 0.184 inc. to 0.196 and began down-trending - EKG (07/20/17) NSR - Lipid panel -WNL - Stress Test (07/20/17) - Showed defect possibly representing ischemia - Cardiac Cath (07/21/17) - Angiographically normal coronaries and normal LV systolic function Medications: * Lasix 40 IV BID discontinued secondary to JACQUES * Crestor 10 PO HS * Aldactone 25 PO BID discontinued secondary to JACQUES * Lisinopril 40 PO QD discontinued secondary to JACQUES * Added Coreg 3.125 BID per Cardio * Added Duonebs per Cardio * Added Nitropaste per Cardio. JACQUES Likely secondary to medications and dye from cardiac cath Nephro consult: Dr. Najera --> help appreciated - urine sodium 32, urine osmolality 241(low), urine creatinine 65.6 - f/u urine chloride - Serum osmolality 302 - Renal US 07/23 - mild increased echogenicity of the bilateral renal parenchymal cortices suggestive for medical renal disease (please see full report) - Chest X-ray (07/24): Moderate venous congestion; right hilar prominence and consolidation; mild patchy left basilar opacity. - Discussed with Dr. Figueredo: Discontinue Lisinopril, aldactone and lasix - Spoke with Dr. Figueredo: patient is retaining urine- he stated to continue straight cath - Urine output in the AM of 07/28/17: 450cc - Esosinophils in urine: Negative - 07/31: awaiting CMP---- UTI (urinary tract infection);resolved - First UA contaminated - Repeat UA shows trace Leuk Es. - Urine Culture- E.Coli sensitive to all antibiotics tested Stool Occult Blood Positive GI consult: Dr. Negron --> help appreciated - CEA 2.2 - CA125: 120 (high) - CA19-9: 23 - F/U stool for C diff, stool culture, leukocytes, ova and parasites -07/29 Barium Swallow: serpentine radioopaque density overlying left parasagittal upper true pelvis consistent with intrauterine device. Residual stool limiting evaluation. no definitive filling defects seen within contrast column. no apple core lesions, no persistent intraluminal or extrinsic filling defects, f/u colonoscopy recommended. Diarrhea; resolved GI consult: Dr. Negron --> help appreciated - Abd/Pelvis CT: Small bilateral pleural effusions and associated consolidations. No visible pneumothorax. Partially imaged cardiomegaly. Small hiatal hernia/ distal esophageal wall thickening. Nodular hepatic contour ; correlate clinically for cirrhosis. Punctate hepatic calcification, right inferior lobe. Heterogeneous hepatic parenchyma, particularly within the left lower lobe. If indicated, suggest further evaluation with dedicated liver CT. Gallbladder wall thickening/pericholecystic edema. Correlate clinically. Suggest right upper quadrant ultrasound. Fluid within the small and large bowel ; correlate for diarrheal illness. Diverticulum of the proximal duodenum. Scattered diverticulosis without CT evidence of acute diverticulitis. Thickened urinary bladder wall atrophy portion to level of underdistention. Recommend correlation with urinalysis. Coarse uterine calcifications. Trace fluid within the pericolic gutters. - Floraster - Metronidazole 500mg PO q8h - discontinued 07/28/17 - F/U stool for C diff, stool culture, leukocytes, ova and parasites Chronic Leg Pain; stable - Bilateral Venous Doppler (07/25/17): Negative for DVT - Venous doppler (07/17/17)- NEGATIVE for DVT - Gabapentin 100mg PO TID Microcytic Anemia;chronic Hematology consult: Dr. 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 Lozoya --> help appreciated - Transvaginal US showed fibroids but did not identify IUD - CA125: 120 (high) - Outpatient MEDIA ASSISTANT follow for possible IUD and uterine fibroids; outpatient History Hypertension;stable Medications: * Lisinopril 40mg PO QD discontinued secondary to JACQUES * Lasix 40 IV BID discontinued secondary to JACQUES * Coreg 3.125 BID per Cardio * Hydralazine 25 PO QID K[facility]--> increased to hydralazine 100mg PO TID * Nitropaste History of Diabetes;chronic - HgBA1c = 7.4 - ISS High - Accuchecks Rash possibly secondary to ABx; resolved - All antibiotics discontinued 07/28/17 - Benadryl 25mg IV PRN - Monitor Hyperphosphotemia; stable - likely secondary to JACQUES - Spoke with Dr. Figueredo to continue Phoslo 667mg but change to TID Prophylactic measure - Heparin 5000U SC Q8 - Zofran 4mg IVP Q6PRN - Pepcid 20mg PO daily - Patient can Ambulate Case discussed with Dr. Weems <Kate Weems V - Last Filed: 07/31/17 13:25> Objective - Vital Signs/Intake and Output Vital Signs (last 24 hours): Temp Pulse Resp BP Pulse Ox 98.0 F 77 20 182/70 H 97 07/31/17 10:26 07/31/17 10:49 07/31/17 10:49 07/31/17 10:52 07/31/17 10:49 Intake and Output: 07/31/17 07/31/17 06:59 18:59 Intake Total 370 Output Total 750 Balance -380 - Medications Medications: Current Medications Acetaminophen (Tylenol 325mg Tab) 650 mg PO Q6 PRN PRN Reason: Pain, moderate (4-7) Last Admin: 07/22/17 12:38 Dose: 650 mg Albuterol/Ipratropium (Duoneb 3 Mg/0.5 Mg (3 Ml) Ud) 3 ml INH RQ6 [facility] Last Admin: 07/31/17 07:38 Dose: 3 ml Amlodipine Besylate (Norvasc) 5 mg PO DAILY [facility] Last Admin: 07/31/17 10:52 Dose: 5 mg Aspirin (Aspirin Chewable) 81 mg PO DAILY [facility] Last Admin: 07/31/17 10:52 Dose: 81 mg Calcium Acetate (Phoslo) 667 mg PO TID [facility] Last Admin: 07/31/17 10:52 Dose: 667 mg Carvedilol (Coreg) 12.5 mg PO BID [facility] Last Admin: 07/31/17 10:52 Dose: 12.5 mg Famotidine (Pepcid) 20 mg IVP DAILY [facility] Last Admin: 07/31/17 10:53 Dose: 20 mg Furosemide (Lasix) 40 mg PO DAILY [facility] Last Admin: 07/31/17 10:52 Dose: 40 mg Gabapentin (Neurontin) 100 mg PO TID [facility] Last Admin: 07/31/17 10:52 Dose: 100 mg Heparin Sodium (Porcine) (Heparin) 5,000 units SC Q8 [facility] Last Admin: 07/31/17 05:47 Dose: 5,000 units Hydralazine HCl (Apresoline) 10 mg IVP Q6H PRN PRN Reason: Systolic Blood Pressure Last Admin: 07/30/17 04:46 Dose: 10 mg Hydralazine HCl (Apresoline) 100 mg PO Q8H [facility] Last Admin: 07/31/17 04:35 Dose: 100 mg Insulin Human Regular (Novolin R) 0 unit SC ACHS [facility] PRN Reason: Protocol Last Admin: 07/31/17 08:23 Dose: Not Given Nitroglycerin (Nitro-Bid 2% Oint) 1 ea TOP Q6H PRN PRN Reason: Pain, severe (8-10) Ondansetron HCl (Zofran Inj) 4 mg IVP Q6 PRN PRN Reason: Nausea/Vomiting Last Admin: 07/26/17 09:58 Dose: 4 mg Promethazine HCl/Codeine (Phenergan/Codeine Oral Syrup) 5 ml PO Q4 PRN PRN Reason: Cough Last Admin: 07/29/17 12:47 Dose: 5 ml Rosuvastatin Calcium (Crestor) 10 mg PO HS [facility] Last Admin: 07/30/17 23:00 Dose: 10 mg Saccharomyces Boulardii (Florastor) 250 mg PO DAILY [facility] Last Admin: 07/31/17 10:52 Dose: 250 mg Sodium Bicarbonate (Sodium Bicarbonate Tab) 650 mg PO Q8 [facility] Last Admin: 07/31/17 05:46 Dose: 650 mg - Labs Labs: 07/31/17 08:49 07/31/17 11:34 PT 11.6 SECONDS (9.7-12.2) 07/20/17 18:03 INR 1.0 07/20/17 18:03 APTT 40 SECONDS (21-34) H D 07/21/17 01:27 Attending/Attestation - Attestation I have personally seen and examined this patient.: Yes I have fully participated in the care of the patient.: Yes I have reviewed all pertinent clinical information, including history, physical exam and plan: Yes Notes (Text): Patient seen, examined and case discussed with day-time resident. Patient seen at bedside. Patient reports she does not feel well. Patient has not had a bowel movement in 4 days. Will given dose of Lactulose. Patient has been given Ducolax for three days. Patient also reporting she is urinating. patient's allergic rash over the chest, abdomen, and back nearly resolved. Patient has ecchymoses likely due to heparin dvt will switch to Lovenox. Appreciated input by ID, will not start antibiotics for the patient. Assessment/Plan 1) Allergic Reaction * Given Benadryl 25mg IV and Solumderol 40mg IV X1 07/27; no oropharygneal involvement; itchiness over the right lower quadrant with skin rash noted; rash spread to chest, abdomen, back, flat, macular rash. Ordered for Benadryl 25mg IV Q6H and Solumedrol 40mg IV Q 8H X1 07/28 * Will stop Zosyn/Azithromycin/Flagy 07/28-->not suspecting Rocephin/Zosyn given patient did not have rash during those days those antibiotics were on. * Rash improving * No abx per ID 2) Hypertension * Improving * Coreg 12.5 mg PO BID * Hydralazine 10mg IV Q 6HR SBP >160 * Hydralazine 100mg PO Q8H * Lasix 40mg PO daily * c/w norvasc 5mg PO daily * monitor blood pressure * Patient is off warren inhibitor/arb/aldactone secondary to acute renal insufficiency 3) Dyspnea on exertion 2/2 to Diastolic CHF (Type II) * Likely 2/2 to new onset CHF * Cardio Dr. Pearl Consult - recs appreciated * Echo - shows Grade II diastolic dysfunction. * CXR - Moderate pulm venous congestion * CXR (07/24): moderate venous congestion, Right hilar prominence and consolidation. Mild patchy left basilar opacity, Trace left pleural effusion. tortuous ectatic aorta, cardiomegaly. * EUGENIA NEGATIVE x3 * EKG (07/20/17) NSR. * Lipid panel -WNL * Stress Test (07/20/17) - Showed defect possibly representing ischemia * Cardiac Cath (07/21/17) - Angiographically normal coronaries and normal LV systolic function Meds: * Lasix 40mg IV BID on hold secondary to JACQUES on 07/23 * Lasix 40mg IV daily * Crestor 10mg PO HS * Aldactone 25 PO BID on hold secondary to JACQUES on 07/23 * Lisinopril 40 PO QD on hold secondary to JACQUES on 07/23 * increased Coreg 12.5mg BID 4) Pneumonia * CXR (07/24): moderate venous congestion, Right hilar prominence and consolidation. Mild patchy left basilar opacity, Trace left pleural effusion. tortuous ectatic aorta, cardiomegaly. * off Zosyn 2.25 IV Q 8 H and Azithromycin 500mg IV q daily 07/28 due to allergic response * Duonebs PRN shortness of breath * Promethazine w codeine 5 ml PO Q 4H PRn cough * Order for Strep pneumonia urine, Legionella urine: negative and Mycoplasma IgM : negative * Infectious Disease (Dr. Reynaga) on consult-->no abx as this time. 5) Urinary Tract Infection * 07/18 contaminated * 07/21 E. Coli * Completed 2nd dose of Rocephin; changed to Zosyn 2.25 g IVPB Q8H (active since 07/24/17) * 07/25 Urine culture: no growth * 07/28 Urine culture: no growth * urine eosinophil: negative 6) JACQUES; urinary retention * Nephrology consult - Dr. Aniya Najera - help appreciated * urine sodium 32, urine osmolality 241(low), urine creatinine 65.6, Serum osmolality 302 * Renal US 07/23/17 - mild increased echogenicity of the bilateral renal parenchymal cortices suggestive for medical renal disease (please see full report) * Holding lisinopril, aldactone and lasix until 07/25/17 to assess affect on creatinine * Urine culture: E. Coli * stop Zosyn 2.25 g IVPB Q8H (active since 07/24/17) on 07/28/17 * Repeat urine culture: no growth * urine eosinophil: negative * Bladder scan: 300 cc urinary retention 07/27-->needed to be straight cath today; no mcintosh * Bladder scan: 900 cc urinary retention 07/28-->needed to be straight cath * Discussed with nephrology 07/28 who is aware, recommended for PRN Straight cath * Bladder scan done,shows 319 ml of urine, 07/29 straight cath done,obtained 300 ml of dark francesco urine. * Straight cath 600 cc removed, 07/30 straight cath * 07/31 BLADDER SCAN DONE AND SHOWS 775 ML URINARY RETENTION.0050 STRAIGHT CATH DONE ASEPTICALLY AND OBTAINED 750 ML URINE. 7) Microcytic Anemia * Ferrlecit 125mg IVPB daily (07/21-07/29) * Stool occult blood positiv * Hematology consult - Dr. Sullivan - help appreciated * hypoproliferative erythroid response * responding to IV iron * element of anemia of CKD; s/p Procrit * monoclonal protein w/u sent * hemoglobinopathy evaluation sen * f/u SPEP/IPEP/[place] [employer] results * GI consult - Dr. Negron - kiersten appreciated * CEA: 2.2 * CA 19-9: 23.0 * Elevated CA 125: 120 * Barium enema for 07/29/17-->study is limited due to poor preparation with residual stool throughout most of the colon. No definitive persistent intraluminal or extrinisc filling defects. No apple core lesions. Colonic mucosa poor delineated due to presence of residual stool. f/u colonoscopy recommend-->will need to f/u with GI 8) Stool Occult Blood * GI consult - Dr. Jamil burch appreciated * CEA 2.2 * Elevated CA 125: 120 * Barium enema for 07/29/17-->study is limited due to poor preparation with residual stool throughout most of the colon. No definitive persistent intraluminal or extrinisc filling defects. No apple core lesions. Colonic mucosa poor delineated due to presence of residual stool. f/u colonoscopy recommend-->will need to f/u with GI * F/U stool for C diff, stool culture, leukocytes, ova and parasites--Pending * Patient has not had C. 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 Yu's note "It was explained to the patient, IUD is confirmed. It was also explained to the patient, attempts at removing the IUD will most likely require examination under anesthesia. In addition, patient would have to be consented for possible surgery including but not limited to exploratory laparotomy and the possible complications that may develop. Patient expressed an understanding and does not desire to proceed with attempt at removing her IUD. Patient stated on several occasions, that the IUD has caused her problems over the past 40 years" * Patient is clinically stable from their standpoint 10) Leg pain * Venous doppler: negative * Arterial doppler: negative * Gabapentin 100mg PO TID 11) Diabetes * HgBA1c = 7.4 * ISS High * Accuchecks QAC and HS 12) Diarrhea--Resolved Constipation * GI (Dr. Negron) on board-->help appreciated * CT Abdomen/Pelvis (07/26/17): small bilateral pleural effusions and associated consolidations. No visible pneumothorax. Partial imaged cardiomegaly. Nodular hepatic contour. Punctuate hepatic calcification, right inferior lobe. Gallbladder wall thickening/pericholecystic edema. Fluid within small and large bowel. scatter diverticulosis without CT evidence of acute diverticulitis. Thickened urinary bladder wall atrophy portion to level of underdistention. coarse uterine calcifications * Abdomen US: cholelithiasis, cirrhosis without infiltration. incidental findins * Barium enema for 07/29/17-->study is limited due to poor preparation with residual stool throughout most of the colon. No definitive persistent intraluminal or extrinisc filling defects. No apple core lesions. Colonic mucosa poor delineated due to presence of residual stool. f/u colonoscopy recommend-->will need to f/u with GI * Has not had bowel movement for 4 days in spite of laxative, will try Lactulose 07/31 (patient has acute renal failure-->need to be care with enemas) 13) Prophylactic measure * Ambulate * Zofran 4mg IVP Q6 PRN nausea * pepcid 20mg IV qdaily * patient is on liquid diet s/p barium enema * lovenox 40mg subq daily Disposition: * Follow-up constipation. Has not had bowel movement will give lactulose X1 * Follow-up with GI. Regarding plan given incomplete enema
[2017-07-31] MEDS: Saccharomyces Boulardi 250 mg Cap PO SCH (10:52)
[2017-07-31 12:02] LABS: ALB/GLOB RATIO 1.2 (1.0-2.1); BILIRUBIN,TOTAL 0.6 mg/dL (0.2-1.3); CALCIUM 7.6 mg/dl (8.6-10.4); POTASSIUM 4.8 mmol/L (3.6-5.2); TOTAL PROTEIN 6.1 g/dL (6.3-8.3)
[2017-08-01] MEDS: Albuterol-Ipratrop 3 mg / 0.5 (3 ml) UD INH SCH ×5 (01:22→19:43)
[2017-08-01 07:27] LABS: BASO % 0.4 % (0.0-2.0); EOS # 0.1 K/uL (0.0-0.7); EOS % 2.5 % (0.0-4.0); HEMATOCRIT 25.2 % (34.0-47.0); LYMPH # 1.3 K/uL (1.0-4.3); LYMPH % 24.8 % (20.0-40.0); MEAN CELL VOLUME 78.9 fL (81.0-99.0); MEAN CORPUSCULAR HEMOGLOBIN 26.1 pg (27.0-31.0); MEAN PLATELET VOLUME 8.1 fL (7.2-11.7); MONO # 0.8 K/uL (0.0-0.8); MONO % 14.1 % (0.0-10.0); NRBC % 0.1 % (0.0-2.0); RED CELL DISTRIBUTION WIDTH 24.7 % (11.5-14.5); WHITE BLOOD COUNT 5.4 K/uL (4.8-10.8)
[2017-08-01] MEDS: (Novolin R) Insulin Human Regular 100 units/ml vial SC SCH ×4 (08:25→22:00)
[2017-08-01 08:30] LABS: ALB/GLOB RATIO 0.9 (1.0-2.1); BILIRUBIN,TOTAL 0.2 mg/dL (0.2-1.3); CALCIUM 7.7 mg/dl (8.6-10.4); MAGNESIUM 2.1 mg/dL (1.6-2.3); PHOSPHOROUS 4.9 mg/dL (2.5-4.5); POTASSIUM 4.7 mmol/L (3.6-5.2); TOTAL PROTEIN 6.3 g/dL (6.3-8.3)
--- NOTE | 2017-08-01 09:21 | CP.PCM.PN ---
<Tina Dasilva - Last Filed: 08/01/17 16:51> Subjective - Date & Time of Evaluation Date of Evaluation: 08/01/17 Time of Evaluation: 07:00 - Subjective Subjective: Patient was seen and examined at bedside in the AM. Per nurse patient has not had a bowel movement in a few days but will be receiving the enema later today. Per nurse the patient began urinating on her own. Patient denies any complaints at this time such as nausea, vomiting, fever, pruritus, chest pain or difficulty breathing. Objective - Vital Signs/Intake and Output Vital Signs (last 24 hours): Temp Pulse Resp BP Pulse Ox 98.2 F 77 20 132/54 L 97 08/01/17 04:32 08/01/17 04:32 08/01/17 04:32 08/01/17 04:32 08/01/17 04:32 Intake and Output: 08/01/17 08/01/17 06:59 18:59 Output Total 250 Balance -250 - Medications Medications: Current Medications Acetaminophen (Tylenol 325mg Tab) 650 mg PO Q6 PRN PRN Reason: Pain, moderate (4-7) Last Admin: 07/22/17 12:38 Dose: 650 mg Albuterol/Ipratropium (Duoneb 3 Mg/0.5 Mg (3 Ml) Ud) 3 ml INH RQ6 [facility] Last Admin: 08/01/17 07:12 Dose: Not Given Amlodipine Besylate (Norvasc) 5 mg PO DAILY [facility] Last Admin: 07/31/17 10:52 Dose: 5 mg Aspirin (Aspirin Chewable) 81 mg PO DAILY [facility] Last Admin: 07/31/17 10:52 Dose: 81 mg Calcium Acetate (Phoslo) 667 mg PO TID [facility] Last Admin: 07/31/17 17:54 Dose: 667 mg Carvedilol (Coreg) 25 mg PO BID [facility] Last Admin: 07/31/17 17:54 Dose: 25 mg Enoxaparin Sodium (Lovenox) 30 mg SC DAILY [facility] Famotidine (Pepcid) 20 mg IVP DAILY [facility] Last Admin: 07/31/17 10:53 Dose: 20 mg Furosemide (Lasix) 40 mg PO DAILY [facility] Last Admin: 07/31/17 10:52 Dose: 40 mg Gabapentin (Neurontin) 100 mg PO TID [facility] Last Admin: 11/26/17 17:54 Dose: 100 mg Hydralazine HCl (Apresoline) 10 mg IVP Q6H PRN PRN Reason: Systolic Blood Pressure Last Admin: 07/30/17 04:46 Dose: 10 mg Hydralazine HCl (Apresoline) 100 mg PO Q8H [facility] Last Admin: 08/01/17 04:40 Dose: 100 mg Insulin Human Regular (Novolin R) 0 unit SC ACHS [facility] PRN Reason: Protocol Last Admin: 08/01/17 08:25 Dose: 2 unit Nitroglycerin (Nitro-Bid 2% Oint) 1 ea TOP Q6H PRN PRN Reason: Pain, severe (8-10) Ondansetron HCl (Zofran Inj) 4 mg IVP Q6 PRN PRN Reason: Nausea/Vomiting Last Admin: 07/26/17 09:58 Dose: 4 mg Promethazine HCl/Codeine (Phenergan/Codeine Oral Syrup) 5 ml PO Q4 PRN PRN Reason: Cough Last Admin: 07/29/17 12:47 Dose: 5 ml Rosuvastatin Calcium (Crestor) 10 mg PO HS [facility] Last Admin: 07/31/17 21:40 Dose: 10 mg Saccharomyces Boulardii (Florastor) 250 mg PO DAILY [facility] Last Admin: 07/31/17 10:52 Dose: 250 mg Sodium Bicarbonate (Sodium Bicarbonate Tab) 650 mg PO Q8 [facility] Last Admin: 08/01/17 05:49 Dose: 650 mg - Labs Labs: 08/01/17 07:04 08/01/17 07:04 PT 11.6 SECONDS (9.7-12.2) 07/20/17 18:03 INR 1.0 07/20/17 18:03 APTT 40 SECONDS (21-34) H D 07/21/17 01:27 - Constitutional Appears: No Acute Distress - Head Exam Head Exam: ATRAUMATIC, NORMAL INSPECTION - Eye Exam Eye Exam: EOMI, Normal appearance - ENT Exam ENT Exam: Mucous Membranes Moist - Respiratory Exam Respiratory Exam: Clear to Ausculation Bilateral, NORMAL BREATHING PATTERN. absent: Rales, Rhonchi, Wheezes, Stridor - Cardiovascular Exam Cardiovascular Exam: REGULAR RHYTHM, RRR, +S1, +S2 - GI/Abdominal Exam GI & Abdominal Exam: Soft, Normal Bowel Sounds. absent: Tenderness - Extremities Exam Extremities Exam: Normal Inspection - Neurological Exam Neurological Exam: Alert, Awake. absent: Oriented x3 (oriented to person and place) - Psychiatric Exam Psychiatric exam: Normal Affect, Normal Mood - Skin Skin Exam: Dry, Intact, Warm. absent: Normal Color (ecchymosis on abdomen due to heparin sc ), Rash Assessment and Plan - Assessment and Plan (Free Text) Assessment: 1.) Dyspnea on exertion secondary to CHF vs. Pneumonia Cardio Consult: Dr. Pearl --> help appreciated - Echo (07/17/17):Grade II diastolic dysfunction; EF 55% - Chest X-ray (07/24): Moderate venous congestion; right hilar prominence and consolidation; mild patchy left basilar opacity. - f/u Strep pneumonia urine - Legionella urine: Negative - Mycoplasma IgM: Negative - Zosyn started 07/24 - discontinued 07/28/17 - Duonebs PRN shortness of breath - Per note from 07/30: No ABs ordered by Dr. Reynaga at this time - Chest CT (07/31): Bilateral effusions and bibasilar atelectasis. Note that the there are a few small - medium size mediastinal lymph nodes. Evaluation of the hilar regions limited due to the lack of circulating intravenous contrast. No definitive right hilar mass seen. Mildly nodular hepatic surface contour. Clinic correlation recommended to exclude cirrhosis. Mild splenomegaly 2.) Diastolic CHF (Type II) Cardio Consult: Dr. Pearl --> help appreciated - Echo (07/17/17):Grade II diastolic dysfunction; EF 55% - Chest X-ray (07/24): Moderate venous congestion; right hilar prominence and consolidation; mild patchy left basilar opacity. - EUGENIA (07/20/2017) Showed 0.184 inc. to 0.196 and began down-trending - EKG (07/20/17) NSR - Lipid panel -WNL - Stress Test (07/20/17) - Showed defect possibly representing ischemia - Cardiac Cath (07/21/17) - Angiographically normal coronaries and normal LV systolic function Medications: * Lasix 40 IV BID discontinued secondary to JACQUES * Crestor 10 PO HS * Aldactone 25 PO BID discontinued secondary to JACQUES * Lisinopril 40 PO QD discontinued secondary to JACQUES * Added Coreg 3.125 BID per Cardio * Added Duonebs per Cardio * Added Nitropaste per Cardio. 3.) JACQUES Likely secondary to medications vs. dye from cardiac cath vs. auto- immune scleroderma Nephro consult: Dr. Najera --> help appreciated - urine sodium 32, urine osmolality 241(low), urine creatinine 65.6 - f/u urine chloride - Serum osmolality 302 - Renal US 07/23 - mild increased echogenicity of the bilateral renal parenchymal cortices suggestive for medical renal disease (please see full report) - Chest X-ray (07/24): Moderate venous congestion; right hilar prominence and consolidation; mild patchy left basilar opacity. - Discussed with Dr. Figueredo: Discontinue Lisinopril, aldactone and lasix - Spoke with Dr. Figueredo: patient is retaining urine- he stated to continue straight cath - Urine output in the AM of 07/28/17: 450cc - Esosinophils in urine: Negative - Patient began to make urine on her own today 08/01 - f/u XENIA, double stranded DNA AB, Anti-centromere; SCL-70 ab 4.) UTI (urinary tract infection) - resolved - First UA contaminated - Repeat UA shows trace Leuk Es. - Urine Culture- E.Coli sensitive to all antibiotics tested Antibiotics: discontinued * Azithromycin 500mg started on 07/25 * Zosyn started 07/24 5.) Stool Occult Blood Positive GI consult: Dr. Negron --> help appreciated - CEA 2.2 - CA125: 120 (high) - CA19-9: 23 - F/U stool for C diff, stool culture, leukocytes, ova and parasites - Barium Enema (07/29/17): Study is limited due to poor preparation with residual stool throughout most of the colon. No definitive persistent intraluminal or extrinsic filling defects. No apple core lesions identified. Colonic mucosa of poorly delineated due to the presence of residual stool on this single contrast exam. . 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 Negron 08/01 recommends colonoscopy as an out patient 6.) Diarrhea - resolved GI consult: Dr. Negron --> help appreciated - Abd/Pelvis CT: Small bilateral pleural effusions and associated consolidations. No visible pneumothorax. Partially imaged cardiomegaly. Small hiatal hernia/ distal esophageal wall thickening. Nodular hepatic contour ; correlate clinically for cirrhosis. Punctate hepatic calcification, right inferior lobe. Heterogeneous hepatic parenchyma, particularly within the left lower lobe. If indicated, suggest further evaluation with dedicated liver CT. Gallbladder wall thickening/pericholecystic edema. Correlate clinically. Suggest right upper quadrant ultrasound. Fluid within the small and large bowel ; correlate for diarrheal illness. Diverticulum of the proximal duodenum. Scattered diverticulosis without CT evidence of acute diverticulitis. Thickened urinary bladder wall atrophy portion to level of underdistention. Recommend correlation with urinalysis. Coarse uterine calcifications. Trace fluid within the pericolic gutters. - Floraster - Metronidazole 500mg PO q8h - discontinued 07/28/17 - F/U stool for C diff, stool culture, leukocytes, ova and parasites 7.) Chronic Leg Pain - Bilateral Venous Doppler (07/25/17): Negative for DVT - Venous doppler (07/17/17)- NEGATIVE for DVT - Gabapentin 100mg PO TID 8.) Microcytic Anemia Hematology consult: Dr. Sullivan --> help appreciated - Ferous Sulfate 325 BID - Stool occult blood positive - f/u Immunofixation, protein electrophoresis - Free Cheverly: 81.8 - Free Lambda: 41.9 - Cheverly/Lambda: 1.95 - Spoke with Dr. 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 Figueredo to continue Phoslo 667mg but change to TID 14.) Prophylactic measure - Contraindication due to Anemia and stool occult + - Zofran 4mg IVP Q6PRN - Pepcid 20mg PO daily Case discussed with Dr. Luke Dasilva PGY-1 <Guerrero Butler - Last Filed: 08/01/17 21:58> Objective - Vital Signs/Intake and Output Vital Signs (last 24 hours): Temp Pulse Resp BP Pulse Ox 97.4 F L 64 20 114/55 L 96 08/01/17 16:00 08/01/17 16:00 08/01/17 16:00 08/01/17 18:18 08/01/17 16:00 Intake and Output: 08/01/17 08/02/17 18:59 06:59 Intake Total 400 Output Total 550 Balance -150 - Medications Medications: Current Medications Acetaminophen (Tylenol 325mg Tab) 650 mg PO Q6 PRN PRN Reason: Pain, moderate (4-7) Last Admin: 07/22/17 12:38 Dose: 650 mg Albuterol/Ipratropium (Duoneb 3 Mg/0.5 Mg (3 Ml) Ud) 3 ml INH RQ6 [facility] Last Admin: 08/01/17 19:43 Dose: 3 ml Amlodipine Besylate (Norvasc) 5 mg PO DAILY [facility] Last Admin: 08/01/17 10:09 Dose: 5 mg Aspirin (Aspirin Chewable) 81 mg PO DAILY [facility] Last Admin: 08/01/17 10:08 Dose: 81 mg Calcium Acetate (Phoslo) 667 mg PO TID [facility] Last Admin: 08/01/17 18:20 Dose: 667 mg Carvedilol (Coreg) 25 mg PO BID [facility] Last Admin: 08/01/17 18:18 Dose: 25 mg Famotidine (Pepcid) 20 mg IVP DAILY [facility] Last Admin: 08/01/17 10:09 Dose: 20 mg Ferrous Sulfate (Feosol) 325 mg PO BID [facility] Last Admin: 08/01/17 18:19 Dose: 325 mg Furosemide (Lasix) 40 mg PO DAILY [facility] Last Admin: 08/01/17 10:08 Dose: 40 mg Gabapentin (Neurontin) 100 mg PO TID [facility] Last Admin: 08/01/17 18:22 Dose: 100 mg Hydralazine HCl (Apresoline) 10 mg IVP Q6H PRN PRN Reason: Systolic Blood Pressure Last Admin: 07/30/17 04:46 Dose: 10 mg Hydralazine HCl (Apresoline) 100 mg PO Q8H [facility] Last Admin: 08/01/17 21:21 Dose: 100 mg Insulin Human Regular (Novolin R) 0 unit SC ACHS [facility] PRN Reason: Protocol Last Admin: 08/01/17 17:13 Dose: Not Given Nitroglycerin (Nitro-Bid 2% Oint) 1 ea TOP Q6H PRN PRN Reason: Pain, severe (8-10) Ondansetron HCl (Zofran Inj) 4 mg IVP Q6 PRN PRN Reason: Nausea/Vomiting Last Admin: 07/26/17 09:58 Dose: 4 mg Promethazine HCl/Codeine (Phenergan/Codeine Oral Syrup) 5 ml PO Q4 PRN PRN Reason: Cough Last Admin: 07/29/17 12:47 Dose: 5 ml Rosuvastatin Calcium (Crestor) 10 mg PO HS [facility] Last Admin: 08/01/17 21:21 Dose: 10 mg Saccharomyces Boulardii (Florastor) 250 mg PO DAILY [facility] Last Admin: 08/01/17 10:08 Dose: 250 mg Sodium Bicarbonate (Sodium Bicarbonate Tab) 650 mg PO Q8 [facility] Last Admin: 08/01/17 21:21 Dose: 650 mg - Labs Labs: 08/01/17 07:04 08/01/17 07:04 PT 11.6 SECONDS (9.7-12.2) 07/20/17 18:03 INR 1.0 07/20/17 18:03 APTT 40 SECONDS (21-34) H D 07/21/17 01:27 Attending/Attestation - Attestation I have personally seen and examined this patient.: Yes I have fully participated in the care of the patient.: Yes I have reviewed all pertinent clinical information, including history, physical exam and plan: Yes Notes (Text): 08/01/17 21:53 Patient was seen and examined at 12:15 PM 08/01/17 669 B Exam, assessment and plan were thoroughly gone over with the resident. Also upon ROS: Bowel movement 30 minutes before my exam that was soft to watery Substernal pain that is chronic in nature Left lateral superior aspect foot numbness that comes and goes chronic Also on Assessments: 1). Hyponatremia Improved and it is 128 today Stool studies could not be sent as stool was not collected after bowel movement today. Spoke with Nurse Pooja and she will make sure that future stool is sent and not discarded Need to follow up workup for Scleroderma as mentioned above: this could be the cause of her JACQUES Need further improvement in renal function prior to discharge as it was normal in January 2017. Need recommendations from PT concerning possible DANETTE for patient. Guerrero Butler D.O.
[2017-08-01] MEDS ORDERED: Enoxaparin 30 mg Syringe SC SCH (10:00)
[2017-08-01] MEDS: Saccharomyces Boulardi 250 mg Cap PO SCH (10:08)
--- NOTE | 2017-08-01 10:35 | CT ---
PROCEDURE: CT scan chest dated 08/01/2017. HISTORY: Mass noted on chest xray? COMPARISON: Comparison made with chest radiograph 07/29/2017. TECHNIQUE: Contiguous axial images were obtained through the chest without intravenous contrast enhancement. Sagittal and coronal reconstructions were performed. Radiation dose (DLP): 478.38 mGy-cm. This CT exam was performed using one or more of the following dose reduction techniques: Automated exposure control, adjustment of the mA and/or kV according to patient size, and/or use of iterative reconstruction technique. FINDINGS: LUNGS: Bilateral effusions and bibasilar atelectasis seen to better advantage. . . No definitive parenchymal masses. MEDIASTINUM: Heart is mildly enlarged. No significant pericardial effusion. Coronary artery and mitral valve calcification. The ascending thoracic aorta measures approximately 3.2 cm and descending thoracic aorta measures 2.4 cm. Three-vessel arch. Pulmonary trunk measures approximately 3.25 cm. Possibility of a very mild overlying pulmonary arterial hypertension not excluded. Few small -medium-sized nonspecific mediastinal lymph nodes largest paratracheal lymph node measuring approximate 10 mm. Prominent right main pulmonary artery. No definitive hilar masses though the exam is somewhat limited to evaluate for hilar adenopathy due to the lack of circulating intravenous contrast material. PLEURA: As above. No evidence of pneumothorax. BONES: Multilevel degenerative spondylosis of the thoracic spine. Minor chronic anterior wedge deformities of a few mid thoracic segments. No acute compression fractures nor retropulsed fragments UPPER ABDOMEN: Re- demonstrated is a slight slightly masses seen. Nodular appearing hepatic surface contour ; clinical correlation with history recommended to rule out cirrhosis. Tiny calcification left lobe liver nonspecific though may represent sequela of prior exposure to an granulomatous disease process. Spleen is mildly enlarged measuring nearly 13 cm in CC dimension. OTHER FINDINGS: None. IMPRESSION: Bilateral effusions and bibasilar atelectasis. Note that the there are a few small - medium size mediastinal lymph nodes. Evaluation of the hilar regions limited due to the lack of circulating intravenous contrast. No definitive right hilar mass seen. Mildly nodular hepatic surface contour. Clinic correlation recommended to exclude cirrhosis. Mild splenomegaly.
--- NOTE | 2017-08-01 22:09 | CP.PCM.PN ---
Subjective - Date & Time of Evaluation Date of Evaluation: 08/01/17 Time of Evaluation: 04:45 - Subjective Subjective: dictated Objective - Vital Signs/Intake and Output Vital Signs (last 24 hours): Temp Pulse Resp BP Pulse Ox 97.4 F L 64 20 114/55 L 96 08/01/17 16:00 08/01/17 16:00 08/01/17 16:00 08/01/17 18:18 08/01/17 16:00 Intake and Output: 08/01/17 08/02/17 18:59 06:59 Intake Total 400 Output Total 550 Balance -150 - Medications Medications: Current Medications Acetaminophen (Tylenol 325mg Tab) 650 mg PO Q6 PRN PRN Reason: Pain, moderate (4-7) Last Admin: 07/22/17 12:38 Dose: 650 mg Albuterol/Ipratropium (Duoneb 3 Mg/0.5 Mg (3 Ml) Ud) 3 ml INH RQ6 [facility] Last Admin: 08/01/17 19:43 Dose: 3 ml Amlodipine Besylate (Norvasc) 5 mg PO DAILY [facility] Last Admin: 08/01/17 10:09 Dose: 5 mg Aspirin (Aspirin Chewable) 81 mg PO DAILY [facility] Last Admin: 08/01/17 10:08 Dose: 81 mg Calcium Acetate (Phoslo) 667 mg PO TID [facility] Last Admin: 08/01/17 18:20 Dose: 667 mg Carvedilol (Coreg) 25 mg PO BID [facility] Last Admin: 08/01/17 18:18 Dose: 25 mg Famotidine (Pepcid) 20 mg IVP DAILY [facility] Last Admin: 08/01/17 10:09 Dose: 20 mg Ferrous Sulfate (Feosol) 325 mg PO BID [facility] Last Admin: 08/01/17 18:19 Dose: 325 mg Furosemide (Lasix) 40 mg PO DAILY [facility] Last Admin: 08/01/17 10:08 Dose: 40 mg Gabapentin (Neurontin) 100 mg PO TID [facility] Last Admin: 08/01/17 18:22 Dose: 100 mg Hydralazine HCl (Apresoline) 10 mg IVP Q6H PRN PRN Reason: Systolic Blood Pressure Last Admin: 07/30/17 04:46 Dose: 10 mg Hydralazine HCl (Apresoline) 100 mg PO Q8H [facility] Last Admin: 08/01/17 21:21 Dose: 100 mg Insulin Human Regular (Novolin R) 0 unit SC ACHS [facility] PRN Reason: Protocol Last Admin: 08/01/17 17:13 Dose: Not Given Nitroglycerin (Nitro-Bid 2% Oint) 1 ea TOP Q6H PRN PRN Reason: Pain, severe (8-10) Ondansetron HCl (Zofran Inj) 4 mg IVP Q6 PRN PRN Reason: Nausea/Vomiting Last Admin: 07/26/17 09:58 Dose: 4 mg Promethazine HCl/Codeine (Phenergan/Codeine Oral Syrup) 5 ml PO Q4 PRN PRN Reason: Cough Last Admin: 07/29/17 12:47 Dose: 5 ml Rosuvastatin Calcium (Crestor) 10 mg PO HS [facility] Last Admin: 08/01/17 21:21 Dose: 10 mg Saccharomyces Boulardii (Florastor) 250 mg PO DAILY [facility] Last Admin: 08/01/17 10:08 Dose: 250 mg Sodium Bicarbonate (Sodium Bicarbonate Tab) 650 mg PO Q8 [facility] Last Admin: 08/01/17 21:21 Dose: 650 mg - Labs Labs: 08/01/17 07:04 08/01/17 07:04 PT 11.6 SECONDS (9.7-12.2) 07/20/17 18:03 INR 1.0 07/20/17 18:03 APTT 40 SECONDS (21-34) H D 07/21/17 01:27
[2017-08-02] MEDS: Albuterol-Ipratrop 3 mg / 0.5 (3 ml) UD INH SCH ×4 (01:22→19:30)
--- NOTE | 2017-08-02 02:47 | PN ---
DATE: SUBJECTIVE: The patient is sitting in the chair. She did have a bout of diarrhea this morning, but she has no more BM. She denies any nausea or vomiting. No difficulty breathing. PHYSICAL EXAMINATION: GENERAL: She is not on any IV antibiotic, but she is doing okay. VITAL SIGNS: Temperature is 98.2. LUNGS: Clear. No crackles or rales present. HEART: S1 and S2 is regular. ABDOMEN: Soft, nontender. No guarding, no rigidity present. EXTREMITIES: Have no edema. LABORATORY DATA: Labs are noted. Lab show white count is 5.4, hemoglobin 8.3, hematocrit 25.2, platelet count is 158. Sodium is 128, potassium 4.7, chlorides are 99, CO2 is 22, BUN is 46, and creatinine is 2.7. ASSESSMENT AND PLAN: She is in renal failure, congestive heart failure has been controlled and right now, I do not think there is a need of antibiotics. There was, however, a chest CT done and the chest CT done yesterday shows bilateral effusion and bibasilar atelectasis. Note that there is a few small, medium-sized, mediastinal lymph nodes, evaluation of the hilar region is limited due to the lack of circulating intravenous contrast, no definite mass seen, mild nodular surface contour. RECOMMENDATION: Clinical correlation is recommended to exclude cirrhosis, mild splenomegaly. chest CT at this time. We will not follow this patient unless requested again. Amish Reynaga MD
[2017-08-02 07:45] LABS: BASO % 0.5 % (0.0-2.0); EOS # 0.1 K/uL (0.0-0.7); EOS % 2.3 % (0.0-4.0); HEMATOCRIT 25.5 % (34.0-47.0); LYMPH # 1.5 K/uL (1.0-4.3); LYMPH % 25.2 % (20.0-40.0); MEAN CELL VOLUME 78.7 fL (81.0-99.0); MEAN CORPUSCULAR HEMOGLOBIN 25.9 pg (27.0-31.0); MEAN CORPUSCULAR HGB CONC 32.9 g/dL (33.0-37.0); MEAN PLATELET VOLUME 7.9 fL (7.2-11.7); MONO # 0.7 K/uL (0.0-0.8); MONO % 11.3 % (0.0-10.0); NRBC % 0.1 % (0.0-2.0); RED CELL DISTRIBUTION WIDTH 25.2 % (11.5-14.5); WHITE BLOOD COUNT 5.8 K/uL (4.8-10.8)
--- NOTE | 2017-08-02 07:56 | CP.PCM.PN ---
<Tina Dasilva - Last Filed: 08/02/17 16:11> Subjective - Date & Time of Evaluation Date of Evaluation: 08/02/17 Time of Evaluation: 07:00 - Subjective Subjective: Patient was seen and examined at bedside in the AM. Per nurse patient has not had a bowel movement overnight but continues to maker her own urine. Patient denies any complaints at this time such as nausea, vomiting, fever, pruritus, chest pain or difficulty breathing. Objective - Vital Signs/Intake and Output Vital Signs (last 24 hours): Temp Pulse Resp BP Pulse Ox 98.3 F 76 20 159/58 H 95 08/01/17 23:00 08/02/17 04:30 08/02/17 04:30 08/02/17 04:30 08/02/17 04:30 - Medications Medications: Current Medications Acetaminophen (Tylenol 325mg Tab) 650 mg PO Q6 PRN PRN Reason: Pain, moderate (4-7) Last Admin: 07/22/17 12:38 Dose: 650 mg Albuterol/Ipratropium (Duoneb 3 Mg/0.5 Mg (3 Ml) Ud) 3 ml INH RQ6 [facility] Last Admin: 08/02/17 07:30 Dose: 3 ml Amlodipine Besylate (Norvasc) 5 mg PO DAILY [facility] Last Admin: 08/01/17 10:09 Dose: 5 mg Aspirin (Aspirin Chewable) 81 mg PO DAILY [facility] Last Admin: 08/01/17 10:08 Dose: 81 mg Calcium Acetate (Phoslo) 667 mg PO TID [facility] Last Admin: 08/01/17 18:20 Dose: 667 mg Carvedilol (Coreg) 25 mg PO BID [facility] Last Admin: 08/01/17 18:18 Dose: 25 mg Famotidine (Pepcid) 20 mg IVP DAILY [facility] Last Admin: 08/01/17 10:09 Dose: 20 mg Ferrous Sulfate (Feosol) 325 mg PO BID [facility] Last Admin: 08/01/17 18:19 Dose: 325 mg Furosemide (Lasix) 40 mg PO DAILY [facility] Last Admin: 08/01/17 10:08 Dose: 40 mg Gabapentin (Neurontin) 100 mg PO TID [facility] Last Admin: 08/01/17 18:22 Dose: 100 mg Hydralazine HCl (Apresoline) 10 mg IVP Q6H PRN PRN Reason: Systolic Blood Pressure Last Admin: 07/30/17 04:46 Dose: 10 mg Hydralazine HCl (Apresoline) 100 mg PO Q8H [facility] Last Admin: 08/02/17 04:45 Dose: 100 mg Insulin Human Regular (Novolin R) 0 unit SC ACHS [facility] PRN Reason: Protocol Last Admin: 08/01/17 22:00 Dose: Not Given Nitroglycerin (Nitro-Bid 2% Oint) 1 ea TOP Q6H PRN PRN Reason: Pain, severe (8-10) Ondansetron HCl (Zofran Inj) 4 mg IVP Q6 PRN PRN Reason: Nausea/Vomiting Last Admin: 07/26/17 09:58 Dose: 4 mg Promethazine HCl/Codeine (Phenergan/Codeine Oral Syrup) 5 ml PO Q4 PRN PRN Reason: Cough Last Admin: 07/29/17 12:47 Dose: 5 ml Rosuvastatin Calcium (Crestor) 10 mg PO HS [facility] Last Admin: 08/01/17 21:21 Dose: 10 mg Saccharomyces Boulardii (Florastor) 250 mg PO DAILY [facility] Last Admin: 08/01/17 10:08 Dose: 250 mg Sodium Bicarbonate (Sodium Bicarbonate Tab) 650 mg PO Q8 [facility] Last Admin: 08/02/17 05:45 Dose: 650 mg - Labs Labs: 08/02/17 07:25 08/01/17 07:04 PT 11.6 SECONDS (9.7-12.2) 07/20/17 18:03 INR 1.0 07/20/17 18:03 APTT 40 SECONDS (21-34) H D 07/21/17 01:27 - Constitutional Appears: No Acute Distress - Head Exam Head Exam: ATRAUMATIC, NORMAL INSPECTION - Eye Exam Eye Exam: EOMI, Normal appearance - ENT Exam ENT Exam: Mucous Membranes Moist - Respiratory Exam Respiratory Exam: Clear to Ausculation Bilateral, NORMAL BREATHING PATTERN - Cardiovascular Exam Cardiovascular Exam: REGULAR RHYTHM, RRR, +S1, +S2 - GI/Abdominal Exam GI & Abdominal Exam: Soft, Normal Bowel Sounds. absent: Tenderness - Extremities Exam Extremities Exam: Normal Inspection - Neurological Exam Neurological Exam: Alert, Awake. absent: Oriented x3 (oriented to person and place) - Psychiatric Exam Psychiatric exam: Normal Affect, Normal Mood - Skin Skin Exam: Normal Color, Warm Assessment and Plan - Assessment and Plan (Free Text) Assessment: 1.) Dyspnea on exertion secondary to CHF vs. Pneumonia - resolved Cardio Consult: Dr. Pearl --> help appreciated - Echo (07/17/17):Grade II diastolic dysfunction; EF 55% - Chest X-ray (07/24): Moderate venous congestion; right hilar prominence and consolidation; mild patchy left basilar opacity. - f/u Strep pneumonia urine - Legionella urine: Negative - Mycoplasma IgM: Negative - Zosyn started 07/24 - discontinued 07/28/17 - Duonebs PRN shortness of breath - Per note from 07/30: No ABs ordered by Dr. Reynaga at this time - Chest CT (07/31): Bilateral effusions and bibasilar atelectasis. Note that the there are a few small - medium size mediastinal lymph nodes. Evaluation of the hilar regions limited due to the lack of circulating intravenous contrast. No definitive right hilar mass seen. Mildly nodular hepatic surface contour. Clinic correlation recommended to exclude cirrhosis. Mild splenomegaly 2.) Diastolic CHF (Type II) Cardio Consult: Dr. Pearl --> help appreciated - Echo (07/17/17):Grade II diastolic dysfunction; EF 55% - Chest X-ray (07/24): Moderate venous congestion; right hilar prominence and consolidation; mild patchy left basilar opacity. - EUGENIA (07/20/2017) Showed 0.184 inc. to 0.196 and began down-trending - EKG (07/20/17) NSR - Lipid panel -WNL - Stress Test (07/20/17) - Showed defect possibly representing ischemia - Cardiac Cath (07/21/17) - Angiographically normal coronaries and normal LV systolic function Medications: * Lasix 40 IV BID discontinued secondary to JACQUES * Crestor 10 PO HS * Aldactone 25 PO BID discontinued secondary to JACQUES * Lisinopril 40 PO QD discontinued secondary to JACQUES * Added Coreg 3.125 BID per Cardio * Added Duonebs per Cardio * Added Nitropaste per Cardio. 3.) JACQUES Likely secondary to medications vs. dye from cardiac cath vs. auto- immune scleroderma Nephro consult: Dr. Najera --> help appreciated - urine sodium 32, urine osmolality 241(low), urine creatinine 65.6 - Serum osmolality 302 - Renal US 07/23 - mild increased echogenicity of the bilateral renal parenchymal cortices suggestive for medical renal disease (please see full report) - Chest X-ray (07/24): Moderate venous congestion; right hilar prominence and consolidation; mild patchy left basilar opacity. - Discussed with Dr. Figueredo: Discontinue Lisinopril, aldactone and lasix - Spoke with Dr. Figueredo: patient is retaining urine- he stated to continue straight cath - resolved - Urine output in the AM of 07/28/17: 450cc - Patient continues to make urine and BUN/Cr are improving - Spoke with Dr. Figueredo and he stated patient can be follow up as an out patient - Esosinophils in urine: Negative - Patient began to make urine on her own today 08/01 - f/u double stranded DNA AB, Anti-centromere; SCL-70 ab 4.) UTI (urinary tract infection) - resolved - First UA contaminated - Repeat UA shows trace Leuk Es. - Urine Culture- E.Coli sensitive to all antibiotics tested Antibiotics: discontinued * Azithromycin 500mg started on 07/25 * Zosyn started 07/24 5.) Stool Occult Blood Positive GI consult: Dr. Negron --> help appreciated - CEA 2.2 - CA125: 120 (high) - CA19-9: 23 - F/U stool for C diff, stool culture, leukocytes, ova and parasites - Barium Enema (07/29/17): Study is limited due to poor preparation with residual stool throughout most of the colon. No definitive persistent intraluminal or extrinsic filling defects. No apple core lesions identified. Colonic mucosa of poorly delineated due to the presence of residual stool on this single contrast exam. . 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 Negron 08/01 recommends colonoscopy as an out patient 6.) Diarrhea - resolved GI consult: Dr. Negron --> help appreciated - Abd/Pelvis CT: Small bilateral pleural effusions and associated consolidations. No visible pneumothorax. Partially imaged cardiomegaly. Small hiatal hernia/ distal esophageal wall thickening. Nodular hepatic contour ; correlate clinically for cirrhosis. Punctate hepatic calcification, right inferior lobe. Heterogeneous hepatic parenchyma, particularly within the left lower lobe. If indicated, suggest further evaluation with dedicated liver CT. Gallbladder wall thickening/pericholecystic edema. Correlate clinically. Suggest right upper quadrant ultrasound. Fluid within the small and large bowel ; correlate for diarrheal illness. Diverticulum of the proximal duodenum. Scattered diverticulosis without CT evidence of acute diverticulitis. Thickened urinary bladder wall atrophy portion to level of underdistention. Recommend correlation with urinalysis. Coarse uterine calcifications. Trace fluid within the pericolic gutters. - Floraster - Metronidazole 500mg PO q8h - discontinued 07/28/17 - F/U stool for C diff, stool culture, leukocytes, ova and parasites 7.) Chronic Leg Pain - Bilateral Venous Doppler (07/25/17): Negative for DVT - Venous doppler (07/17/17)- NEGATIVE for DVT - Gabapentin 100mg PO TID 8.) Microcytic Anemia Hematology consult: Dr. Sullivan --> help appreciated - Ferous Sulfate 325 BID - Stool occult blood positive - f/u Immunofixation, protein electrophoresis - Free Lehr: 81.8 - Free Lambda: 41.9 - Lehr/Lambda: 1.95 - f/u skeletal survey 9.) Abdominal Pain possibly secondary to uterine fibroids [employer]IRL Consult: Dr. Lozoya --> help appreciated - Transvaginal US showed fibroids but did not identify IUD - CA125: 120 (high) - Outpatient [employer] follow for possible IUD and uterine fibroids 10.) History Hypertension Medications: * Lisinopril 40mg PO QD discontinued secondary to JACQUES * Lasix 40 IV BID discontinued secondary to JACQUES * Coreg 3.125 BID per Cardio * Hydralazine 25 PO QID [facility]--> increased to hydralazine 100mg PO TID * Nitropaste 11.) History of Diabetes - HgBA1c = 7.4 - ISS High - Accuchecks 12.) Rash possibly secondary to ABs: resolved - All antibiotics discontinued 07/28/17 - Benadryl 25mg IV PRN - Monitor 13.) Hyperphosphotemia -resolved - likely secondary to JACQUES - Spoke with Dr. Figueredo to continue Phoslo 667mg but change to TID 14.) Prophylactic measure - Contraindication due to Anemia and stool occult + - Zofran 4mg IVP Q6PRN - Pepcid 20mg PO daily - f/u PT recommendations Disposition: possible discharge 11/29/[address] Luke Dasilva PGY-1 <Guerrero Butler - Last Filed: 08/02/17 20:04> Objective - Vital Signs/Intake and Output Vital Signs (last 24 hours): Temp Pulse Resp BP Pulse Ox 98.1 F 75 20 144/56 L 96 08/02/17 15:05 08/02/17 15:05 08/02/17 15:05 08/02/17 17:27 08/02/17 15:05 Intake and Output: 08/02/17 08/03/17 18:59 06:59 Intake Total 400 Output Total 500 Balance -100 - Medications Medications: Current Medications Acetaminophen (Tylenol 325mg Tab) 650 mg PO Q6 PRN PRN Reason: Pain, moderate (4-7) Last Admin: 07/22/17 12:38 Dose: 650 mg Albuterol/Ipratropium (Duoneb 3 Mg/0.5 Mg (3 Ml) Ud) 3 ml INH RQ6 [facility] Last Admin: 08/02/17 19:30 Dose: 3 ml Amlodipine Besylate (Norvasc) 5 mg PO DAILY [facility] Last Admin: 08/02/17 09:44 Dose: 5 mg Aspirin (Aspirin Chewable) 81 mg PO DAILY [facility] Last Admin: 08/02/17 09:44 Dose: 81 mg Calcium Acetate (Phoslo) 667 mg PO TID [facility] Last Admin: 08/02/17 17:25 Dose: 667 mg Carvedilol (Coreg) 25 mg PO BID [facility] Last Admin: 08/02/17 17:27 Dose: 25 mg Famotidine (Pepcid) 20 mg PO DAILY [facility] Ferrous Sulfate (Feosol) 325 mg PO BID [facility] Last Admin: 08/02/17 17:27 Dose: 325 mg Furosemide (Lasix) 40 mg PO DAILY [facility] Last Admin: 08/02/17 09:41 Dose: 40 mg Gabapentin (Neurontin) 100 mg PO TID [facility] Last Admin: 08/02/17 17:27 Dose: 100 mg Hydralazine HCl (Apresoline) 10 mg IVP Q6H PRN PRN Reason: Systolic Blood Pressure Last Admin: 07/30/17 04:46 Dose: 10 mg Hydralazine HCl (Apresoline) 100 mg PO Q8H [facility] Last Admin: 08/02/17 12:05 Dose: 100 mg Insulin Human Regular (Novolin R) 0 unit SC ACHS [facility] PRN Reason: Protocol Last Admin: 08/02/17 17:26 Dose: 6 unit Nitroglycerin (Nitro-Bid 2% Oint) 1 ea TOP Q6H PRN PRN Reason: Pain, severe (8-10) Ondansetron HCl (Zofran Inj) 4 mg IVP Q6 PRN PRN Reason: Nausea/Vomiting Last Admin: 07/26/17 09:58 Dose: 4 mg Promethazine HCl/Codeine (Phenergan/Codeine Oral Syrup) 5 ml PO Q4 PRN PRN Reason: Cough Last Admin: 07/29/17 12:47 Dose: 5 ml Rosuvastatin Calcium (Crestor) 10 mg PO HS [facility] Last Admin: 08/01/17 21:21 Dose: 10 mg Saccharomyces Boulardii (Florastor) 250 mg PO DAILY [facility] Last Admin: 08/02/17 09:43 Dose: 250 mg Sodium Bicarbonate (Sodium Bicarbonate Tab) 650 mg PO Q8 [facility] Last Admin: 08/02/17 14:18 Dose: 650 mg - Labs Labs: 08/02/17 07:25 08/02/17 07:25 PT 11.6 SECONDS (9.7-12.2) 07/20/17 18:03 INR 1.0 07/20/17 18:03 APTT 40 SECONDS (21-34) H D 07/21/17 01:27 Attending/Attestation - Attestation I have personally seen and examined this patient.: Yes I have fully participated in the care of the patient.: Yes I have reviewed all pertinent clinical information, including history, physical exam and plan: Yes Notes (Text): 08/02/17 19:55 Patient was seen and examined at 4:45 PM 08/02/17 669 B Exam, assessment and plan were thoroughly gone over with the resident. Also upon ROS: Bowel movement earlier this morning and stated that there was soft but still a little watery Substernal pain that is chronic in nature Left lateral superior aspect foot numbness that comes and goes chronic Dizziness if she gets up too fast Also on Assessments: 1). Hyponatremia Improved and it is 128 today Stool studies again could not be sent as stool was not collected after bowel movement today as [employer] cleaned bedside commode despite sign at bedside stating that the stool was not be discarded. Patient also did not notify nurse as she was instructed to do so 08/01/17. Spoke with Nurse Michael and she will make sure that future stool is sent and not discarded. Need to follow up workup for Scleroderma as mentioned above: this could be the cause of her JACQUES Resident spoke with [employer] Dr. Najera and ok for follow up as outpatient Follow up Bone Survery to look for lytic lesions: elevated kappa and lambda light chains as well as increased ratio. Need recommendations from PT. Guerrero Butler D.O.
[2017-08-02 08:02] LABS: ALB/GLOB RATIO 1.3 (1.0-2.1); BILIRUBIN,TOTAL 0.5 mg/dL (0.2-1.3); CALCIUM 7.6 mg/dl (8.6-10.4); MAGNESIUM 1.8 mg/dL (1.6-2.3); PHOSPHOROUS 4.1 mg/dL (2.5-4.5); POTASSIUM 4.6 mmol/L (3.6-5.2); TOTAL PROTEIN 5.4 g/dL (6.3-8.3)
[2017-08-02] MEDS: (Novolin R) Insulin Human Regular 100 units/ml vial SC SCH ×4 (08:30→22:52)
[2017-08-02] MEDS: Saccharomyces Boulardi 250 mg Cap PO SCH (09:43)
--- NOTE | 2017-08-02 18:20 | CP.PCM.PN ---
<Angely Nunez DO - Last Filed: 08/02/17 18:14> Subjective - Date & Time of Evaluation Date of Evaluation: 08/02/17 Time of Evaluation: 18:14 - Subjective Subjective: Progress note for Dr. Sullivan Patient seen and examined. Patient denies acute complaints but does states she feels something is off with her vision. Objective - Vital Signs/Intake and Output Vital Signs (last 24 hours): Temp Pulse Resp BP Pulse Ox 98.1 F 75 20 144/56 L 96 08/02/17 15:05 08/02/17 15:05 08/02/17 15:05 08/02/17 17:27 08/02/17 15:05 Intake and Output: 08/02/17 08/02/17 06:59 18:59 Intake Total 400 Output Total 500 Balance -100 - Medications Medications: Current Medications Acetaminophen (Tylenol 325mg Tab) 650 mg PO Q6 PRN PRN Reason: Pain, moderate (4-7) Last Admin: 07/22/17 12:38 Dose: 650 mg Albuterol/Ipratropium (Duoneb 3 Mg/0.5 Mg (3 Ml) Ud) 3 ml INH RQ6 [facility] Last Admin: 08/02/17 13:03 Dose: 3 ml Amlodipine Besylate (Norvasc) 5 mg PO DAILY [facility] Last Admin: 08/02/17 09:44 Dose: 5 mg Aspirin (Aspirin Chewable) 81 mg PO DAILY [facility] Last Admin: 08/02/17 09:44 Dose: 81 mg Calcium Acetate (Phoslo) 667 mg PO TID [facility] Last Admin: 08/02/17 17:25 Dose: 667 mg Carvedilol (Coreg) 25 mg PO BID [facility] Last Admin: 08/02/17 17:27 Dose: 25 mg Famotidine (Pepcid) 20 mg IVP DAILY [facility] Last Admin: 08/02/17 09:45 Dose: 20 mg Ferrous Sulfate (Feosol) 325 mg PO BID [facility] Last Admin: 08/02/17 17:27 Dose: 325 mg Furosemide (Lasix) 40 mg PO DAILY [facility] Last Admin: 08/02/17 09:41 Dose: 40 mg Gabapentin (Neurontin) 100 mg PO TID [facility] Last Admin: 08/02/17 17:27 Dose: 100 mg Hydralazine HCl (Apresoline) 10 mg IVP Q6H PRN PRN Reason: Systolic Blood Pressure Last Admin: 07/30/17 04:46 Dose: 10 mg Hydralazine HCl (Apresoline) 100 mg PO Q8H [facility] Last Admin: 08/02/17 12:05 Dose: 100 mg Insulin Human Regular (Novolin R) 0 unit SC ACHS [facility] PRN Reason: Protocol Last Admin: 08/02/17 17:26 Dose: 6 unit Nitroglycerin (Nitro-Bid 2% Oint) 1 ea TOP Q6H PRN PRN Reason: Pain, severe (8-10) Ondansetron HCl (Zofran Inj) 4 mg IVP Q6 PRN PRN Reason: Nausea/Vomiting Last Admin: 07/26/17 09:58 Dose: 4 mg Promethazine HCl/Codeine (Phenergan/Codeine Oral Syrup) 5 ml PO Q4 PRN PRN Reason: Cough Last Admin: 07/29/17 12:47 Dose: 5 ml Rosuvastatin Calcium (Crestor) 10 mg PO HS [facility] Last Admin: 08/01/17 21:21 Dose: 10 mg Saccharomyces Boulardii (Florastor) 250 mg PO DAILY [facility] Last Admin: 08/02/17 09:43 Dose: 250 mg Sodium Bicarbonate (Sodium Bicarbonate Tab) 650 mg PO Q8 [facility] Last Admin: 08/02/17 14:18 Dose: 650 mg - Labs Labs: 08/02/17 07:25 08/02/17 07:25 PT 11.6 SECONDS (9.7-12.2) 07/20/17 18:03 INR 1.0 07/20/17 18:03 APTT 40 SECONDS (21-34) H D 07/21/17 01:27 - Constitutional Appears: Non-toxic, No Acute Distress - Head Exam Head Exam: ATRAUMATIC, NORMOCEPHALIC - Eye Exam Eye Exam: EOMI - ENT Exam ENT Exam: Mucous Membranes Moist - Respiratory Exam Respiratory Exam: Clear to Ausculation Bilateral - Cardiovascular Exam Cardiovascular Exam: +S1, +S2 - GI/Abdominal Exam GI & Abdominal Exam: Normal Bowel Sounds - Extremities Exam Extremities Exam: Normal Inspection - Neurological Exam Neurological Exam: Alert - Psychiatric Exam Psychiatric exam: Normal Affect - Skin Skin Exam: Warm Assessment and Plan - Assessment and Plan (Free Text) Assessment: Anemia hypoproliferative erythroid response hemoglobinopathy evaluation suggestive of alpha thalassemia trait monoclonal protein workup shows mild elevation in light chains, borderline iron stores will order skeletal survey to rule out lytic lesions Plan as per Dr. Sullivan <Nakul Sullivan - Last Filed: 08/02/17 20:11> Objective - Vital Signs/Intake and Output Vital Signs (last 24 hours): Temp Pulse Resp BP Pulse Ox 98.1 F 75 20 144/56 L 96 08/02/17 15:05 08/02/17 15:05 08/02/17 15:05 08/02/17 17:27 08/02/17 15:05 Intake and Output: 08/02/17 08/03/17 18:59 06:59 Intake Total 400 Output Total 500 Balance -100 - Medications Medications: Current Medications Acetaminophen (Tylenol 325mg Tab) 650 mg PO Q6 PRN PRN Reason: Pain, moderate (4-7) Last Admin: 07/22/17 12:38 Dose: 650 mg Albuterol/Ipratropium (Duoneb 3 Mg/0.5 Mg (3 Ml) Ud) 3 ml INH RQ6 [facility] Last Admin: 08/02/17 19:30 Dose: 3 ml Amlodipine Besylate (Norvasc) 5 mg PO DAILY [facility] Last Admin: 08/02/17 09:44 Dose: 5 mg Aspirin (Aspirin Chewable) 81 mg PO DAILY [facility] Last Admin: 08/02/17 09:44 Dose: 81 mg Calcium Acetate (Phoslo) 667 mg PO TID [facility] Last Admin: 08/02/17 17:25 Dose: 667 mg Carvedilol (Coreg) 25 mg PO BID [facility] Last Admin: 08/02/17 17:27 Dose: 25 mg Famotidine (Pepcid) 20 mg PO DAILY [facility] Ferrous Sulfate (Feosol) 325 mg PO BID [facility] Last Admin: 08/02/17 17:27 Dose: 325 mg Furosemide (Lasix) 40 mg PO DAILY [facility] Last Admin: 08/02/17 09:41 Dose: 40 mg Gabapentin (Neurontin) 100 mg PO TID [facility] Last Admin: 08/02/17 17:27 Dose: 100 mg Hydralazine HCl (Apresoline) 10 mg IVP Q6H PRN PRN Reason: Systolic Blood Pressure Last Admin: 07/30/17 04:46 Dose: 10 mg Hydralazine HCl (Apresoline) 100 mg PO Q8H [facility] Last Admin: 08/02/17 12:05 Dose: 100 mg Insulin Human Regular (Novolin R) 0 unit SC ACHS [facility] PRN Reason: Protocol Last Admin: 08/02/17 17:26 Dose: 6 unit Nitroglycerin (Nitro-Bid 2% Oint) 1 ea TOP Q6H PRN PRN Reason: Pain, severe (8-10) Ondansetron HCl (Zofran Inj) 4 mg IVP Q6 PRN PRN Reason: Nausea/Vomiting Last Admin: 07/26/17 09:58 Dose: 4 mg Promethazine HCl/Codeine (Phenergan/Codeine Oral Syrup) 5 ml PO Q4 PRN PRN Reason: Cough Last Admin: 07/29/17 12:47 Dose: 5 ml Rosuvastatin Calcium (Crestor) 10 mg PO HS [facility] Last Admin: 08/01/17 21:21 Dose: 10 mg Saccharomyces Boulardii (Florastor) 250 mg PO DAILY [facility] Last Admin: 08/02/17 09:43 Dose: 250 mg Sodium Bicarbonate (Sodium Bicarbonate Tab) 650 mg PO Q8 [facility] Last Admin: 08/02/17 14:18 Dose: 650 mg - Labs Labs: 08/02/17 07:25 08/02/17 07:25 PT 11.6 SECONDS (9.7-12.2) 07/20/17 18:03 INR 1.0 07/20/17 18:03 APTT 40 SECONDS (21-34) H D 07/21/17 01:27 Assessment and Plan (1) Anemia Status: Acute (2) Elevated CA-125 Status: Acute - Assessment and Plan (Free Text) Assessment: Pt seen and examined, agree with Dr. Nunez's assessment and plan. Mild elevation in free light chain ratio; will order skeletal survey to rule out lytic bone lesions borderline iron stores with suggestion of alpha thal trait.
[2017-08-03] MEDS: Albuterol-Ipratrop 3 mg / 0.5 (3 ml) UD INH SCH ×4 (02:20→19:12)
[2017-08-03] MEDS: (Novolin R) Insulin Human Regular 100 units/ml vial SC SCH ×4 (07:55→22:10)
[2017-08-03 08:16] LABS: BASO % 0.4 % (0.0-2.0); EOS # 0.2 K/uL (0.0-0.7); EOS % 2.3 % (0.0-4.0); HEMATOCRIT 27.2 % (34.0-47.0); LYMPH # 1.6 K/uL (1.0-4.3); LYMPH % 23.7 % (20.0-40.0); MEAN CELL VOLUME 79.7 fL (81.0-99.0); MEAN CORPUSCULAR HEMOGLOBIN 25.7 pg (27.0-31.0); MEAN CORPUSCULAR HGB CONC 32.3 g/dL (33.0-37.0); MEAN PLATELET VOLUME 8.3 fL (7.2-11.7); MONO # 0.8 K/uL (0.0-0.8); MONO % 11.2 % (0.0-10.0); RED CELL DISTRIBUTION WIDTH 25.4 % (11.5-14.5); WHITE BLOOD COUNT 6.9 K/uL (4.8-10.8)
[2017-08-03 08:43] LABS: ALB/GLOB RATIO 1.2 (1.0-2.1); BILIRUBIN,TOTAL 0.5 mg/dL (0.2-1.3); CALCIUM 7.5 mg/dl (8.6-10.4); MAGNESIUM 1.8 mg/dL (1.6-2.3); PHOSPHOROUS 4.2 mg/dL (2.5-4.5); POTASSIUM 4.2 mmol/L (3.6-5.2); TOTAL PROTEIN 5.6 g/dL (6.3-8.3)
[2017-08-03] MEDS: Saccharomyces Boulardi 250 mg Cap PO SCH (10:22)
--- NOTE | 2017-08-03 10:53 | RAD ---
PROCEDURE: SKELETAL SURVEY HISTORY: r/o lytic lesions COMPARISON: None TECHNIQUE: Various anterior and lateral images of the acquired through the axial and central appendicular skeleton comprising a skeletal survey. FINDINGS: No focal lytic or blastic destructive lesions are appreciated throughout the visualized axial and appendicular skeleton. No fracture is appreciated throughout. IMPRESSION: No destructive bony lesion identified.
--- NOTE | 2017-08-03 11:41 | CP.PCM.PN ---
<Angely Nunez DO - Last Filed: 08/03/17 13:14> Subjective - Date & Time of Evaluation Date of Evaluation: 08/03/17 Time of Evaluation: 13:14 - Subjective Subjective: Progress note for Dr. Sullivan: Patient seen and examined. Patient resting comfortably in bed s/p skeletal survey. Objective - Vital Signs/Intake and Output Vital Signs (last 24 hours): Temp Pulse Resp BP Pulse Ox 97.1 F L 74 20 175/70 H 96 08/03/17 08:38 08/03/17 10:18 08/03/17 10:18 08/03/17 10:22 08/03/17 10:18 Intake and Output: 08/03/17 08/03/17 06:59 18:59 Output Total 900 Balance -900 - Medications Medications: Current Medications Acetaminophen (Tylenol 325mg Tab) 650 mg PO Q6 PRN PRN Reason: Pain, moderate (4-7) Last Admin: 07/22/17 12:38 Dose: 650 mg Albuterol/Ipratropium (Duoneb 3 Mg/0.5 Mg (3 Ml) Ud) 3 ml INH RQ6 [facility] Last Admin: 08/03/17 07:26 Dose: 3 ml Amlodipine Besylate (Norvasc) 5 mg PO DAILY [facility] Last Admin: 08/03/17 10:21 Dose: 5 mg Aspirin (Aspirin Chewable) 81 mg PO DAILY [facility] Last Admin: 08/03/17 10:22 Dose: 81 mg Calcium Acetate (Phoslo) 667 mg PO TID [facility] Last Admin: 08/03/17 10:23 Dose: 667 mg Carvedilol (Coreg) 25 mg PO BID [facility] Last Admin: 08/03/17 10:22 Dose: 25 mg Famotidine (Pepcid) 20 mg PO DAILY [facility] Last Admin: 08/03/17 10:21 Dose: 20 mg Ferrous Sulfate (Feosol) 325 mg PO BID [facility] Last Admin: 08/03/17 10:22 Dose: 325 mg Furosemide (Lasix) 40 mg PO DAILY [facility] Last Admin: 08/03/17 10:22 Dose: 40 mg Gabapentin (Neurontin) 100 mg PO TID [facility] Last Admin: 08/03/17 10:22 Dose: 100 mg Hydralazine HCl (Apresoline) 10 mg IVP Q6H PRN PRN Reason: Systolic Blood Pressure Last Admin: 07/30/17 04:46 Dose: 10 mg Hydralazine HCl (Apresoline) 100 mg PO Q8H [facility] Last Admin: 08/03/17 03:38 Dose: 100 mg Insulin Human Regular (Novolin R) 0 unit SC ACHS KAZ PRN Reason: Protocol Last Admin: 08/03/17 07:55 Dose: Not Given Nitroglycerin (Nitro-Bid 2% Oint) 1 ea TOP Q6H PRN PRN Reason: Pain, severe (8-10) Ondansetron HCl (Zofran Inj) 4 mg IVP Q6 PRN PRN Reason: Nausea/Vomiting Last Admin: 07/26/17 09:58 Dose: 4 mg Promethazine HCl/Codeine (Phenergan/Codeine Oral Syrup) 5 ml PO Q4 PRN PRN Reason: Cough Last Admin: 07/29/17 12:47 Dose: 5 ml Rosuvastatin Calcium (Crestor) 10 mg PO HS [facility] Last Admin: 08/02/17 22:52 Dose: 10 mg Saccharomyces Boulardii (Florastor) 250 mg PO DAILY [facility] Last Admin: 08/03/17 10:22 Dose: 250 mg Sodium Bicarbonate (Sodium Bicarbonate Tab) 650 mg PO Q8 [facility] Last Admin: 08/03/17 05:49 Dose: 650 mg - Labs Labs: 08/03/17 08:02 08/03/17 08:02 PT 11.6 SECONDS (9.7-12.2) 07/20/17 18:03 INR 1.0 07/20/17 18:03 APTT 40 SECONDS (21-34) H D 07/21/17 01:27 - Constitutional Appears: No Acute Distress - Head Exam Head Exam: ATRAUMATIC, NORMOCEPHALIC - Eye Exam Eye Exam: EOMI - ENT Exam ENT Exam: Mucous Membranes Moist - Respiratory Exam Respiratory Exam: Clear to Ausculation Bilateral - Cardiovascular Exam Cardiovascular Exam: +S1, +S2 - GI/Abdominal Exam GI & Abdominal Exam: Normal Bowel Sounds - Rectal Exam Rectal Exam: NORMAL INSPECTION - Neurological Exam Neurological Exam: Alert - Psychiatric Exam Psychiatric exam: Normal Affect - Skin Skin Exam: Warm Assessment and Plan - Assessment and Plan (Free Text) Assessment: Anemia Mild elevation in free light chain ratio, however, skeletal survey negative Bone survery: no focal lytic or blastic destructive lesions appreciated throught axial and appendicular skeleton no fracture appreciated throughout borderline iron stores with suggestion of alpha thal trait Patient to follow up on discharge with PMD Plan as per Dr. Sullivan <Nakul Sullivan - Last Filed: 08/04/17 17:43> Objective - Vital Signs/Intake and Output Vital Signs (last 24 hours): Temp Pulse Resp BP Pulse Ox 98.2 F 63 20 134/68 95 08/04/17 15:55 08/04/17 15:55 08/04/17 15:55 08/04/17 15:55 08/04/17 15:55 Intake and Output: 08/04/17 08/04/17 06:59 18:59 Intake Total 400 Output Total 1000 600 Balance -1000 -200 - Medications Medications: Current Medications Acetaminophen (Tylenol 325mg Tab) 650 mg PO Q6 PRN PRN Reason: Pain, moderate (4-7) Last Admin: 07/22/17 12:38 Dose: 650 mg Albuterol/Ipratropium (Duoneb 3 Mg/0.5 Mg (3 Ml) Ud) 3 ml INH RQ6 [facility] Last Admin: 08/04/17 13:19 Dose: 3 ml Amlodipine Besylate (Norvasc) 5 mg PO DAILY [facility] Last Admin: 08/04/17 09:20 Dose: 5 mg Aspirin (Aspirin Chewable) 81 mg PO DAILY [facility] Last Admin: 08/04/17 09:20 Dose: 81 mg Calcium Acetate (Phoslo) 667 mg PO TID [facility] Last Admin: 08/04/17 14:50 Dose: 667 mg Carvedilol (Coreg) 25 mg PO BID [facility] Last Admin: 08/04/17 09:21 Dose: 25 mg Famotidine (Pepcid) 20 mg PO DAILY [facility] Last Admin: 08/04/17 09:20 Dose: 20 mg Ferrous Sulfate (Feosol) 325 mg PO BID [facility] Last Admin: 08/04/17 09:21 Dose: 325 mg Furosemide (Lasix) 40 mg PO DAILY [facility] Last Admin: 08/04/17 09:20 Dose: 40 mg Gabapentin (Neurontin) 100 mg PO TID [facility] Last Admin: 08/04/17 14:48 Dose: 100 mg Hydralazine HCl (Apresoline) 10 mg IVP Q6H PRN PRN Reason: Systolic Blood Pressure Last Admin: 07/30/17 04:46 Dose: 10 mg Hydralazine HCl (Apresoline) 100 mg PO Q8H [facility] Last Admin: 08/04/17 12:33 Dose: 100 mg Insulin Human Regular (Novolin R) 0 unit SC ACHS KAZ PRN Reason: Protocol Last Admin: 08/04/17 12:30 Dose: 8 unit Ondansetron HCl (Zofran Inj) 4 mg IVP Q6 PRN PRN Reason: Nausea/Vomiting Last Admin: 07/26/17 09:58 Dose: 4 mg Promethazine HCl/Codeine (Phenergan/Codeine Oral Syrup) 5 ml PO Q4 PRN PRN Reason: Cough Last Admin: 07/29/17 12:47 Dose: 5 ml Rosuvastatin Calcium (Crestor) 10 mg PO HS [facility] Last Admin: 08/03/17 22:08 Dose: 10 mg Saccharomyces Boulardii (Florastor) 250 mg PO DAILY [facility] Last Admin: 08/04/17 09:21 Dose: 250 mg Sodium Bicarbonate (Sodium Bicarbonate Tab) 650 mg PO Q8 [facility] Last Admin: 08/04/17 14:47 Dose: 650 mg - Labs Labs: 08/04/17 08:22 08/04/17 08:22 PT 11.6 SECONDS (9.7-12.2) 07/20/17 18:03 INR 1.0 07/20/17 18:03 APTT 40 SECONDS (21-34) H D 07/21/17 01:27 Assessment and Plan (1) Anemia Status: Acute (2) Elevated CA-125 Status: Acute - Assessment and Plan (Free Text) Assessment: Pt seen and examined, agree with residents consult.
--- NOTE | 2017-08-03 14:13 | CP.PCM.DIS ---
<Tina Dasilva - Last Filed: 08/03/17 18:03> Provider - Provider Date of Admission: 07/17/17 15:14 Attending physician: Guerrero Butler MD Time Spent in preparation of Discharge (in minutes): 40 Hospital Course - Lab Results Lab Results: Micro Results 07/28/17 14:30 Urine,Catheterized Urine Culture - Final No Growth (<1,000 CFU/ML) 07/25/17 21:00 Urine,Clean Catch Urine Culture - Final No Growth (<1,000 CFU/ML) 07/21/17 08:30 Urine,Clean Catch Urine Culture - Final Escherichia Coli 07/18/17 21:28 Urine Urine Culture - Final 10-50,000 CFU/ML. MULTIPLE SPECIES. PROBABLE CONTAMINATION. Most Recent Lab Values WBC 6.9 K/uL (4.8-10.8) 08/03/17 08:02 RBC 3.41 Mil/uL (3.80-5.20) L 08/03/17 08:02 Hgb 8.8 g/dL (11.0-16.0) L 08/03/17 08:02 Hct 27.2 % (34.0-47.0) L 08/03/17 08:02 MCV 79.7 fL (81.0-99.0) L 08/03/17 08:02 MCH 25.7 pg (27.0-31.0) L 08/03/17 08:02 MCHC 32.3 g/dL (33.0-37.0) L 08/03/17 08:02 RDW 25.4 % (11.5-14.5) H 08/03/17 08:02 Plt Count 175 K/uL (130-400) 08/03/17 08:02 MPV 8.3 fL (7.2-11.7) 08/03/17 08:02 Neut % (Auto) 62.4 % (50.0-75.0) 08/03/17 08:02 Lymph % (Auto) 23.7 % (20.0-40.0) 08/03/17 08:02 [place] % (Auto) 11.2 % (0.0-10.0) H 08/03/17 08:02 Eos % (Auto) 2.3 % (0.0-4.0) 08/03/17 08:02 Baso % (Auto) 0.4 % (0.0-2.0) 08/03/17 08:02 Neut # 4.3 K/uL (1.8-7.0) 08/03/17 08:02 Lymph # 1.6 K/uL (1.0-4.3) 08/03/17 08:02 [place] # 0.8 K/uL (0.0-0.8) 08/03/17 08:02 Eos # 0.2 K/uL (0.0-0.7) 08/03/17 08:02 Baso # 0.0 K/uL (0.0-0.2) 08/03/17 08:02 Retic Count 3.3 % (0.5-1.5) H 07/20/17 12:00 Hemoglobin A 97.3 Percent (>96.0) 07/22/17 07:39 Hemoglobin A2 1.7 Percent (1.8-3.5) L 07/22/17 07:39 Hemoglobin C 0.0 Percent (0.0-0.0) 07/22/17 07:39 Hemoglobin F () <1.0 Percent (<2.0) 07/22/17 07:39 Hemoglobin S 0.0 Percent (0.0-0.0) 07/22/17 07:39 Variant Hemoglobin 0.0 Percent (0.0-0.0) 07/22/17 07:39 Hemoglobinopathy Red Blood Count 3.33 Mill/mcL (3.80-5.10) L 07/22/17 07:39 Hemoglobinopathy Hct 25.6 % (35.0-45.0) L 07/22/17 07:39 Hemoglobinopathy Hgb 8.1 g/dL (11.7-15.5) L 07/22/17 07:39 Hemoglobinopathy MCV 76.8 fL (80.0-100.0) L 07/22/17 07:39 Hemoglobinopathy MCH 24.2 pg (27.0-33.0) L 07/22/17 07:39 Hemoglobinopathy RDW 18.2 % (11.0-15.0) H 07/22/17 07:39 Hemoglobinopathy Interp See note 07/22/17 07:39 Haptoglobin 187 mg/dL (43-212) 07/20/17 12:00 PT 11.6 SECONDS (9.7-12.2) 07/20/17 18:03 INR 1.0 07/20/17 18:03 APTT 40 SECONDS (21-34) H D 07/21/17 01:27 Sodium 130 mmol/L (132-148) L 08/03/17 08:02 Potassium 4.2 mmol/L (3.6-5.2) 08/03/17 08:02 Chloride 98 mmol/L (98-107) 08/03/17 08:02 Carbon Dioxide 23 mmol/L (22-30) 08/03/17 08:02 Anion Gap 13 (10-20) 08/03/17 08:02 BUN 37 mg/dL (7-17) H 08/03/17 08:02 Creatinine 2.1 mg/dL (0.7-1.2) H 08/03/17 08:02 Est GFR ( Amer) 27 08/03/17 08:02 Est GFR (Non-Af Amer) 23 08/03/17 08:02 POC Glucose (mg/dL) 226 mg/dL (65-110) H 08/03/17 11:40 Random Glucose 113 mg/dL (65-105) H 08/03/17 08:02 Hemoglobin A1c 7.4 % (4.2-6.5) H 07/17/17 13:43 Serum Osmolality 302 mosm/kg (272-300) H 07/23/17 14:00 Calcium 7.5 mg/dl (8.6-10.4) L 08/03/17 08:02 Phosphorus 4.2 mg/dL (2.5-4.5) 08/03/17 08:02 Magnesium 1.8 mg/dL (1.6-2.3) 08/03/17 08:02 Iron 45 ug/dL (37-170) 07/20/17 12:00 TIBC 449 ug/dL (250-450) 07/20/17 12:00 % Saturation 10 (20-55) L 07/20/17 12:00 Ferritin 107.0 ng/mL 07/20/17 12:00 Total Bilirubin 0.5 mg/dL (0.2-1.3) 08/03/17 08:02 AST 19 U/L (14-36) 08/03/17 08:02 ALT 27 U/L (9-52) 08/03/17 08:02 Alkaline Phosphatase 74 U/L (38-126) 08/03/17 08:02 Total Creatine Kinase 52 U/L (30-135) 07/29/17 13:55 CK-MB (Mass) 1.73 ng/mL (0.0-3.38) 07/29/17 13:55 Troponin I < 0.0120 ng/mL (0.00-0.120) 07/29/17 13:55 Troponin I, Quant 0.1670 ng/mL (0.00-0.120) H* 07/20/17 22:36 NT-Pro-B Natriuret Pep 1850 pg/mL (0-900) H 07/17/17 13:43 Total Protein 5.6 g/dL (6.3-8.3) L 08/03/17 08:02 Total Protein (PEP) 6.4 g/dL (6.1-8.1) 07/22/17 07:39 Albumin 3.1 g/dL (3.5-5.0) L 08/03/17 08:02 Albumin (PEP) 3.1 g/dL (3.8-4.8) L 07/22/17 07:39 Globulin 2.5 gm/dL (2.2-3.9) 08/03/17 08:02 Albumin/Globulin Ratio 1.2 (1.0-2.1) 08/03/17 08:02 Ocswe-3-Hdvwrkwhl 0.3 g/dL (0.2-0.3) 07/22/17 07:39 Pvilj-5-Klazvbjun 1.0 g/dL (0.5-0.9) H 07/22/17 07:39 Jkzb-9-Kmjmohhs 0.4 g/dL (0.4-0.6) 07/22/17 07:39 Tdzr-7-Xwqnszao 0.3 g/dL (0.2-0.5) 07/22/17 07:39 Gamma Globulins 1.2 g/dL (0.8-1.7) 07/22/17 07:39 Abnorm Protein Band 1 TEST NOT PERFORMED 07/22/17 07:39 Abnorm Protein Band 2 TEST NOT PERFORMED 07/22/17 07:39 Abnorm Protein Band 3 TEST NOT PERFORMED 07/22/17 07:39 Triglycerides 127 mg/dL (0-149) D 07/18/17 06:12 Cholesterol 157 mg/dL (0-199) 07/18/17 06:12 LDL Cholesterol Direct 97 mg/dL (0-129) 07/18/17 06:12 HDL Cholesterol 48 mg/dL (30-70) 07/18/17 06:12 Carcinoembryonic Ag 2.2 ng/mL (0-3.0) 07/23/17 16:44 CA 19-9 Antigen 23.0 U/mL (0-37) 07/24/17 09:22 CA 125 Antigen 120 U/mL (0-35) H 07/24/17 09:22 Vitamin B12 307 pg/mL (239-931) 07/20/17 12:00 25-OH Vitamin D Total < 12.8 NG/ML (30.0-100.0) L 07/27/17 13:43 Folate 15.3 ng/mL 07/20/17 12:00 TSH 3rd Generation 1.34 mIU/L (0.46-4.68) 07/18/17 06:12 Urine Color Yellow (YELLOW) 07/28/17 11:40 Urine Clarity Hazy (Clear) 07/28/17 11:40 Urine pH 5.0 (5.0-8.0) 07/28/17 11:40 Ur Specific [place] 1.015 (1.003-1.030) 07/28/17 11:40 Urine Protein 2+ mg/dL (NEGATIVE) H 07/28/17 11:40 Urine Glucose (UA) 1+ mg/dL (Normal) 07/28/17 11:40 Urine Ketones Negative mg/dL (NEGATIVE) 07/28/17 11:40 Urine Blood Negative (NEGATIVE) 07/28/17 11:40 Urine Nitrate Negative (NEGATIVE) 07/28/17 11:40 Urine Bilirubin Negative (NEGATIVE) 07/28/17 11:40 Urine Urobilinogen Normal mg/dL (0.2-1.0) 07/28/17 11:40 Ur Leukocyte Esterase Neg Farhan/uL (Negative) 07/28/17 11:40 Urine WBC (Auto) 2 /hpf (0-5) 07/28/17 11:40 Urine RBC (Auto) 1 /hpf (0-3) 07/28/17 11:40 Urine WBC Clumps (Auto) Few /hpf (NONE) H 07/21/17 21:46 Ur Squamous Epith Cells 1 /hpf (0-5) 07/28/17 11:40 Amorphous Sediment Rare /ul (<OCC) H 07/28/17 11:40 Urine Bacteria Rare (<OCC) 07/21/17 21:46 Hyaline Casts 0-2 /lpf (0-2) 07/17/17 13:24 Urine Eosinophils Negative (NEGATIVE) 07/26/17 15:47 Urine Osmolality 241 mosm/kg (300-1000) L 07/23/17 23:27 Ur Random Creatinine 65.6 mg/dL 07/23/17 23:27 Ur Random Sodium 32 mmol/L 07/23/17 23:27 Urine Chloride 17 mmol/L (32-290) L 07/23/17 08:34 Stool Occult Blood Positive (NEGATIVE) H 07/23/17 07:27 FRANKLIN & SPEP Interp See note 07/22/17 07:39 Serum Immunofixation Not detected (Not Detected) 07/22/17 07:39 XENIA 6 Profile Negative (NEGATIVE) 08/01/17 20:05 XENIA Titer 1:40 H 07/26/17 08:57 XENIA Pattern Nucleolar H 07/26/17 08:57 Complement C3 132.0 mg/dL (88.0-165.0) 07/26/17 13:56 Complement C4 35.2 mg/dL (14.0-44.0) 07/26/17 13:56 [place]/Lambda Light Chain see note 07/22/17 07:39 Free [place] Light Chains 81.8 mg/L (3.3-19.4) H 07/22/17 07:39 Free Lambda Light Chain 41.9 mg/L (5.7-26.3) H 07/22/17 07:39 Free [place]/Lambda Ratio 1.95 (0.26-1.65) H 07/22/17 07:39 Hep Bs Antigen Negative (NEGATIVE) 07/26/17 17:14 Hep Bs Antibody Negative (NEGATIVE) 07/26/17 17:14 Hepatitis C Antibody Negative (NEGATIVE) 07/26/17 17:14 Influenza Typ A,B (EIA) Negative for flu a/b (NEGATIVE) 07/18/17 21:25 Ur L.pneumophila Ag Negative (NEGATIVE) 07/24/17 22:03 Mycoplasma pneumon IgM Negative (NEGATIVE) 07/26/17 08:57 Ur Strep pneumoniae Ag Not detected 07/24/17 08:36 Blood Type B POSITIVE 07/18/17 17:09 Antibody Screen Negative 07/18/17 17:09 - Hospital Course Hospital Course: HPI: Patient is a 81 Female who has been complaining of SOB for the past 3-4 months. She states that she can only walk 6-7 step before becoming SOB. Exertion and laying flat makes it worse. She complains of orthopnea and has to use 2 pillows to sleep. If she lays flat she becomes extremely SOB. Rest makes it better. She is complaining of chest pain that is reproducible on exam. She is complaining of a ESTEVES, leg pain bilaterally and some belly pain. She has very poor vision that hs been worked up on previous visits. She was quite hypertensive in the ED and was given labetalol, lasix and hydralzine which temporarily controlled her pressure. She denies any fever, nausea, vomiting, diarrhea. ROS: Per HPI PMH: HTN, DM PSH: None FH: unremarkable SH: Denies tobacco use, alcohol use or drug use Meds: Zestril, metformin All: NKA Hospital Course: Upon admission, the following imaging on diagnostic exams were conducted: EKG: Normal Sinus Rhythm. Left [place] Deviation. Minimal voltage criteria for LVH. Chest XR: Moderate pulmonary venous congestion and bibasilar atelectasis. No focal consolidation. Echo: Normal LV systolic function. Type II diastolic dysfunction, elevated AL pressure. Mild tricuspid regurgitation. Mild aortic stenosis. Duplex Scan Lower Extremity Artery: No evidence of deep or superficial vein thrombosis of the right or left lower extremity. Normal valve function notes on the right and left side. Cardiology, Dr. Pearl was consulted on 07/18/17 and agreed with the medication regime for the patients CHF and recommended ECHO and a nuclear scan. Pelvis/Transvaginal U/S 07/19/17: Heterogenous uterine echotexture. Probable calcified fundal fibroid measure approximately 2.7 cm. Probable calcified uterine fibroid measures maximally 2.6 cm. IUD is not identified. Bilateraly ovaries were not visualized. Myocardial Perfusion Scan Nuclear 07/20/17: Small reversible perfusion/ metabolism defect in the Basal Anterolateral Wall suggestive of ischemia. Left ventricle systolic function normal and Ejection fraction is 55-60%. Cath procedure follow up on 07/21/17 which found normal coronaries and normal LV systolic function. During the patients hospital course, patients SOB and reproducible chest pain improved over the next few days. Hematology was consulted on 07/21/17 and provided further instruction on handling the patients anemia due to acute renal insufficiency. Nephrology, due to patients acute renal failure, was consulted on 07/23/17 and recommended continuation of fluids and antibiotics in addition to daily urine electrolytes evaluation. Patient had an episode of diarrhea and GI was consulted on 07/24/17. GI recommended barium enema followed by upper GI with small bowel follow through as an outpatient. Repeat Chest XR 07/23/17 to follow up on patients history of pulmonary venous congestion revealed mild venous congestion, upper lobe granulomatous changes, right hilar prominences, right paratracheal airspace opacity may present prominent vasculature, mild patchy increased markings in the right infrahilar region and left lung base, tortuous ectatic aorta, and cardiomegaly. Renal ultrasound 07/23/17 to follow up on patients acute renal insufficiency, revealed mild increased echogencitiy of the bilateral renal parenchymal cortices suggestive for medical disease. Patient continued to make urine and BUN/Cr are improving. Dr. Figueredo stated patient can be follow up as an out patient Repeat Chest XR 07/24/17 revealed moderate venous congestion, right hilar prominence and consolidation, mild pathcy left basilar opacity, tortuous ectatic aorta, and cardiomegaly. Patient reported she had and IUD placed 40 years ago. To follow up, Pelvic XR was conducted on 07/24/17 and revealed IUD noted within the pelvis. Patient also reported some lower leg tenderness and on 07/25/17, Lower Extremity Ultrasound was conducted and revealed no evidence of hemodynamically significant arterial insufficiency in the right or left lower extremity. Over the next few days, the patient felt nauseous and fatigued. Patient continued to have watery diarrhea. Abdomen and Pelvis CT was performed on 07/26/17 and revealed the following: Small bilateral pleural effusion and associated consolidations. Nodular hepatic contour. Punctate hepatic calcification, right inferior lobe. Heterogeneous hepatic parenchyma, particularly in the left lower lobe. Gallbladder wall thickening/pericholecystic edema. Fluid within small and large bowel. Scattered diverticulosis. Thickened urinary bladder wall atrophy. Coarse uterine calcifications. To follow up on the gallbladder wall thickening, RUQ Ultrasound was conducted on 07/27/17 and revealed cholelithiasis and cirrhosis without fatty infiltration. Over the next few days the patients watery diarrhea resolved. Chest XR repeat was conducted on 07/28/17 and revealed basilar infiltrates suspected including the lingula. A rapid response was called late at night on 07/28/17 due to O2 saturation below 90%. Patient was placed on a non-rebreather and O2 saturation returned to 100%. Patients blood pressure was also controlled, Chest XR was ordered and ROMIs were ordered. ROMIs came back negative x3 and Chest XR on revealed previously noted bibasilar opacities right greater than left and patchy opacity in the right upper lobe. Barium enema was performed on 07/29/17 and revealed the study was limited due to poor preparation with residual stool throughout and follow up colonoscopy was recommended an outpatient. Head CT on 07/29/17 revealed no definite intracranial hemorrhage and nonspecific white matter changes. Infectious Disease was consulted on 07/30/17 to follow up on the patchy opacity found in the right upper lobe. ID recommended regular monitoring and no antibiotics. Chest Ct on 07/31/17 revealed bilateral effusion and bibasilar atelectasis and mildly nodular hepatic surface contour. Over the next few days, patients condition improved. Bone Survey on 08/03/17 revealed no destructive bony lesions. This is a brief summary of the patients hospital course. Please review EMR for full record. Patient stable for discharge per Dr. Butler. Patient to continue home medications: Metformin 1,000mg twice a day: breakfast and dinner Ferrous Sulfate 325mg twice a day: breakfast and dinner Continue new medications: Norvasc 5mg once a day: 1PM Aspirin 81mg once a day: 7AM Coreg 25mg twice a day: 10AM and 10PM Lasix 40mg once a day: 7AM Gabapentin 100mg three times per day: 7AM, 1PM, 7PM Hydralazine 100mg three time per day: 7AM, 1PM, 7PM Atorvastatin 20mg once a day: 7PM Please follow up at [facility] in the next 7-10 days. Call [phone] to make an appointment. Through the clinic you will need to follow up with the following specialists: Nephrology for Chronic Kidney Disease Program Trainer for follow up of scleroderma workup. GI for colonoscopy Cardiology for History of Diastolic Heart Failure Please return to the Emergency Room if symptoms return or worsen. Discharge Exam - Head Exam Head Exam: ATRAUMATIC, NORMAL INSPECTION, NORMOCEPHALIC - Eye Exam Eye Exam: EOMI, Normal appearance - ENT Exam ENT Exam: Mucous Membranes Moist - Respiratory Exam Respiratory Exam: Clear to PA & Lateral, NORMAL BREATHING PATTERN - Cardiovascular Exam Cardiovascular Exam: REGULAR RHYTHM, RRR, +S1, +S2 - GI/Abdominal Exam GI & Abdominal Exam: Normal Bowel Sounds, Soft. absent: Tenderness - Extremities Exam Extremities exam: normal inspection - Neurological Exam Neurological exam: Alert Additional comments: Oriented to person and place - Psychiatric Exam Psychiatric exam: Normal Affect, Normal Mood - Skin Skin Exam: Normal Color, Warm Discharge Plan - Discharge Medications Prescriptions: amLODIPine [Norvasc] 5 mg PO DAILY #30 tab Aspirin [Aspirin Chewable] 81 mg PO DAILY #30 chew Atorvastatin [Lipitor] 20 mg PO HS #30 tab Carvedilol [Coreg] 25 mg PO BID #60 tab Furosemide [Lasix] 40 mg PO DAILY #30 tab Gabapentin [Neurontin] 100 mg PO TID #90 cap hydrALAZINE [Apresoline] 100 mg PO Q8H #90 tab - Follow Up Plan Condition: GOOD Disposition: HOME/ ROUTINE Instructions: Heart Failure (DC), Acute Kidney Injury (DC), Urinary Tract Infection in Women (DC), Iron Rich Diet (DC), Dyspnea (GEN), Anemia (DC), Pneumonia (DC) <Guerrero Butler - Last Filed: 08/03/17 18:36> Provider - Provider Date of Admission: 07/17/17 15:14 Attending physician: Guerrero Butler MD Hospital Course - Lab Results Lab Results: Micro Results 07/28/17 14:30 Urine,Catheterized Urine Culture - Final No Growth (<1,000 CFU/ML) 07/25/17 21:00 Urine,Clean Catch Urine Culture - Final No Growth (<1,000 CFU/ML) 07/21/17 08:30 Urine,Clean Catch Urine Culture - Final Escherichia Coli 07/18/17 21:28 Urine Urine Culture - Final 10-50,000 CFU/ML. MULTIPLE SPECIES. PROBABLE CONTAMINATION. Most Recent Lab Values WBC 6.9 K/uL (4.8-10.8) 08/03/17 08:02 RBC 3.41 Mil/uL (3.80-5.20) L 08/03/17 08:02 Hgb 8.8 g/dL (11.0-16.0) L 08/03/17 08:02 Hct 27.2 % (34.0-47.0) L 08/03/17 08:02 MCV 79.7 fL (81.0-99.0) L 08/03/17 08:02 MCH 25.7 pg (27.0-31.0) L 08/03/17 08:02 MCHC 32.3 g/dL (33.0-37.0) L 08/03/17 08:02 RDW 25.4 % (11.5-14.5) H 08/03/17 08:02 Plt Count 175 K/uL (130-400) 08/03/17 08:02 MPV 8.3 fL (7.2-11.7) 08/03/17 08:02 Neut % (Auto) 62.4 % (50.0-75.0) 08/03/17 08:02 Lymph % (Auto) 23.7 % (20.0-40.0) 08/03/17 08:02 [place] % (Auto) 11.2 % (0.0-10.0) H 08/03/17 08:02 Eos % (Auto) 2.3 % (0.0-4.0) 08/03/17 08:02 Baso % (Auto) 0.4 % (0.0-2.0) 08/03/17 08:02 Neut # 4.3 K/uL (1.8-7.0) 08/03/17 08:02 Lymph # 1.6 K/uL (1.0-4.3) 08/03/17 08:02 [place] # 0.8 K/uL (0.0-0.8) 08/03/17 08:02 Eos # 0.2 K/uL (0.0-0.7) 08/03/17 08:02 Baso # 0.0 K/uL (0.0-0.2) 08/03/17 08:02 Retic Count 3.3 % (0.5-1.5) H 07/20/17 12:00 Hemoglobin A 97.3 Percent (>96.0) 07/22/17 07:39 Hemoglobin A2 1.7 Percent (1.8-3.5) L 07/22/17 07:39 Hemoglobin C 0.0 Percent (0.0-0.0) 07/22/17 07:39 Hemoglobin F () <1.0 Percent (<2.0) 07/22/17 07:39 Hemoglobin S 0.0 Percent (0.0-0.0) 07/22/17 07:39 Variant Hemoglobin 0.0 Percent (0.0-0.0) 07/22/17 07:39 Hemoglobinopathy Red Blood Count 3.33 Mill/mcL (3.80-5.10) L 07/22/17 07:39 Hemoglobinopathy Hct 25.6 % (35.0-45.0) L 07/22/17 07:39 Hemoglobinopathy Hgb 8.1 g/dL (11.7-15.5) L 07/22/17 07:39 Hemoglobinopathy MCV 76.8 fL (80.0-100.0) L 07/22/17 07:39 Hemoglobinopathy MCH 24.2 pg (27.0-33.0) L 07/22/17 07:39 Hemoglobinopathy RDW 18.2 % (11.0-15.0) H 07/22/17 07:39 Hemoglobinopathy Interp See note 07/22/17 07:39 Haptoglobin 187 mg/dL (43-212) 07/20/17 12:00 PT 11.6 SECONDS (9.7-12.2) 07/20/17 18:03 INR 1.0 07/20/17 18:03 APTT 40 SECONDS (21-34) H D 07/21/17 01:27 Sodium 130 mmol/L (132-148) L 08/03/17 08:02 Potassium 4.2 mmol/L (3.6-5.2) 08/03/17 08:02 Chloride 98 mmol/L (98-107) 08/03/17 08:02 Carbon Dioxide 23 mmol/L (22-30) 08/03/17 08:02 Anion Gap 13 (10-20) 08/03/17 08:02 BUN 37 mg/dL (7-17) H 08/03/17 08:02 Creatinine 2.1 mg/dL (0.7-1.2) H 08/03/17 08:02 Est GFR ( Amer) 27 08/03/17 08:02 Est GFR (Non-Af Amer) 23 08/03/17 08:02 POC Glucose (mg/dL) 184 mg/dL (65-110) H 08/03/17 16:21 Random Glucose 113 mg/dL (65-105) H 08/03/17 08:02 Hemoglobin A1c 7.4 % (4.2-6.5) H 07/17/17 13:43 Serum Osmolality 302 mosm/kg (272-300) H 07/23/17 14:00 Calcium 7.5 mg/dl (8.6-10.4) L 08/03/17 08:02 Phosphorus 4.2 mg/dL (2.5-4.5) 08/03/17 08:02 Magnesium 1.8 mg/dL (1.6-2.3) 08/03/17 08:02 Iron 45 ug/dL (37-170) 07/20/17 12:00 TIBC 449 ug/dL (250-450) 07/20/17 12:00 % Saturation 10 (20-55) L 07/20/17 12:00 Ferritin 107.0 ng/mL 07/20/17 12:00 Total Bilirubin 0.5 mg/dL (0.2-1.3) 08/03/17 08:02 AST 19 U/L (14-36) 08/03/17 08:02 ALT 27 U/L (9-52) 08/03/17 08:02 Alkaline Phosphatase 74 U/L (38-126) 08/03/17 08:02 Total Creatine Kinase 52 U/L (30-135) 07/29/17 13:55 CK-MB (Mass) 1.73 ng/mL (0.0-3.38) 07/29/17 13:55 Troponin I < 0.0120 ng/mL (0.00-0.120) 07/29/17 13:55 Troponin I, Quant 0.1670 ng/mL (0.00-0.120) H* 07/20/17 22:36 NT-Pro-B Natriuret Pep 1850 pg/mL (0-900) H 07/17/17 13:43 Total Protein 5.6 g/dL (6.3-8.3) L 08/03/17 08:02 Total Protein (PEP) 6.4 g/dL (6.1-8.1) 07/22/17 07:39 Albumin 3.1 g/dL (3.5-5.0) L 08/03/17 08:02 Albumin (PEP) 3.1 g/dL (3.8-4.8) L 07/22/17 07:39 Globulin 2.5 gm/dL (2.2-3.9) 08/03/17 08:02 Albumin/Globulin Ratio 1.2 (1.0-2.1) 08/03/17 08:02 Jytii-7-Psysrqzdp 0.3 g/dL (0.2-0.3) 07/22/17 07:39 Hgbsf-0-Sgqeqwbxh 1.0 g/dL (0.5-0.9) H 07/22/17 07:39 Dzts-9-Nojrgflu 0.4 g/dL (0.4-0.6) 07/22/17 07:39 Lzqx-5-Dedldrck 0.3 g/dL (0.2-0.5) 07/22/17 07:39 Gamma Globulins 1.2 g/dL (0.8-1.7) 07/22/17 07:39 Abnorm Protein Band 1 TEST NOT PERFORMED 07/22/17 07:39 Abnorm Protein Band 2 TEST NOT PERFORMED 07/22/17 07:39 Abnorm Protein Band 3 TEST NOT PERFORMED 07/22/17 07:39 Triglycerides 127 mg/dL (0-149) D 07/18/17 06:12 Cholesterol 157 mg/dL (0-199) 07/18/17 06:12 LDL Cholesterol Direct 97 mg/dL (0-129) 07/18/17 06:12 HDL Cholesterol 48 mg/dL (30-70) 07/18/17 06:12 Carcinoembryonic Ag 2.2 ng/mL (0-3.0) 07/23/17 16:44 CA 19-9 Antigen 23.0 U/mL (0-37) 07/24/17 09:22 CA 125 Antigen 120 U/mL (0-35) H 07/24/17 09:22 Vitamin B12 307 pg/mL (239-931) 07/20/17 12:00 25-OH Vitamin D Total < 12.8 NG/ML (30.0-100.0) L 07/27/17 13:43 Folate 15.3 ng/mL 07/20/17 12:00 TSH 3rd Generation 1.34 mIU/L (0.46-4.68) 07/18/17 06:12 Urine Color Yellow (YELLOW) 07/28/17 11:40 Urine Clarity Hazy (Clear) 07/28/17 11:40 Urine pH 5.0 (5.0-8.0) 07/28/17 11:40 Ur Specific [place] 1.015 (1.003-1.030) 07/28/17 11:40 Urine Protein 2+ mg/dL (NEGATIVE) H 07/28/17 11:40 Urine Glucose (UA) 1+ mg/dL (Normal) 07/28/17 11:40 Urine Ketones Negative mg/dL (NEGATIVE) 07/28/17 11:40 Urine Blood Negative (NEGATIVE) 07/28/17 11:40 Urine Nitrate Negative (NEGATIVE) 07/28/17 11:40 Urine Bilirubin Negative (NEGATIVE) 07/28/17 11:40 Urine Urobilinogen Normal mg/dL (0.2-1.0) 07/28/17 11:40 Ur Leukocyte Esterase Neg Farhan/uL (Negative) 07/28/17 11:40 Urine WBC (Auto) 2 /hpf (0-5) 07/28/17 11:40 Urine RBC (Auto) 1 /hpf (0-3) 07/28/17 11:40 Urine WBC Clumps (Auto) Few /hpf (NONE) H 07/21/17 21:46 Ur Squamous Epith Cells 1 /hpf (0-5) 07/28/17 11:40 Amorphous Sediment Rare /ul (<OCC) H 07/28/17 11:40 Urine Bacteria Rare (<OCC) 07/21/17 21:46 Hyaline Casts 0-2 /lpf (0-2) 07/17/17 13:24 Urine Eosinophils Negative (NEGATIVE) 07/26/17 15:47 Urine Osmolality 241 mosm/kg (300-1000) L 07/23/17 23:27 Ur Random Creatinine 65.6 mg/dL 07/23/17 23:27 Ur Random Sodium 32 mmol/L 07/23/17 23:27 Urine Chloride 17 mmol/L (32-290) L 07/23/17 08:34 Stool Occult Blood Positive (NEGATIVE) H 07/23/17 07:27 FRANKLIN & SPEP Interp See note 07/22/17 07:39 Serum Immunofixation Not detected (Not Detected) 07/22/17 07:39 XENIA 6 Profile Negative (NEGATIVE) 08/01/17 20:05 XENIA Titer 1:40 H 07/26/17 08:57 XENIA Pattern Nucleolar H 07/26/17 08:57 Complement C3 132.0 mg/dL (88.0-165.0) 07/26/17 13:56 Complement C4 35.2 mg/dL (14.0-44.0) 07/26/17 13:56 [place]/Lambda Light Chain see note 07/22/17 07:39 Free [place] Light Chains 81.8 mg/L (3.3-19.4) H 07/22/17 07:39 Free Lambda Light Chain 41.9 mg/L (5.7-26.3) H 07/22/17 07:39 Free [place]/Lambda Ratio 1.95 (0.26-1.65) H 07/22/17 07:39 Hep Bs Antigen Negative (NEGATIVE) 07/26/17 17:14 Hep Bs Antibody Negative (NEGATIVE) 07/26/17 17:14 Hepatitis C Antibody Negative (NEGATIVE) 07/26/17 17:14 Influenza Typ A,B (EIA) Negative for flu a/b (NEGATIVE) 07/18/17 21:25 Ur L.pneumophila Ag Negative (NEGATIVE) 07/24/17 22:03 Mycoplasma pneumon IgM Negative (NEGATIVE) 07/26/17 08:57 Ur Strep pneumoniae Ag Not detected 07/24/17 08:36 Blood Type B POSITIVE 07/18/17 17:09 Antibody Screen Negative 07/18/17 17:09 Attending/Attestation - Attestation I have personally seen and examined this patient.: Yes I have fully participated in the care of the patient.: Yes I have reviewed all pertinent clinical information, including history, physical exam and plan: Yes Notes (Text): 08/03/17 18:36 Patient was seen and examined at 2:30 PM. Exam, Assessment and Plan and Discharge instructions were thoroughly gone over with the patient. Guerrero Butler D.O.
--- NOTE | 2017-08-03 15:00 | PCM.HF ---
Heart Failure Core Measure - Heart Failure Ejection Fraction: 40 % or Greater AUTUMN Inhibitor Prescribed: No Contraindication/Reason for not providing: EF > 40 Beta-Sreedhar Prescribed: Carvedilol Angiotensin II Receptor Sreedhar Prescribed: No Contraindication/Reason for not providing: EF > 40 AnticoagulationTherapy for Atrial Fibrillation/Atrialflutter: No Contraindication/Reason for not providing: NO AFIB Aldosterone Antagonist Prescribed: No Contraindication/Reason for not providing: EF > 40 Hydralazine Nitrate Prescribed: No Contraindication/Reason for not providing: EF > 40 Implantable Cardioverter Defibrillator Therapy: No Contraindication/Reason for not providing: EF > 40 Cardiac Resynchronization Therapy Prescribed: No Contraindication/Reason for not providing: EF > 40 - Follow up Will be discharged to: Home Follow Up Date (must be within 7 days from discharge): 08/10/17 Follow Up Time: 09:00
[2017-08-03] MEDS ORDERED: Influenza Vaccine 60 mcg/0.5 mL SYR (4YR UP) IM ONE (16:22)
[2017-08-03] MEDS ORDERED: Pneumococcal 23-Valent Vaccine IM ONE (16:23)
[2017-08-03 20:39] LABS: Interpretation Negative (Negative)
[2017-08-04] MEDS: Albuterol-Ipratrop 3 mg / 0.5 (3 ml) UD INH SCH ×4 (01:07→19:35)
[2017-08-04] MEDS: (Novolin R) Insulin Human Regular 100 units/ml vial SC SCH ×4 (08:10→21:34)
[2017-08-04 08:32] LABS: BASO % 0.4 % (0.0-2.0); EOS # 0.2 K/uL (0.0-0.7); EOS % 2.3 % (0.0-4.0); LYMPH # 1.5 K/uL (1.0-4.3); LYMPH % 22.7 % (20.0-40.0); MEAN CELL VOLUME 80.3 fL (81.0-99.0); MEAN CORPUSCULAR HEMOGLOBIN 25.9 pg (27.0-31.0); MEAN CORPUSCULAR HGB CONC 32.2 g/dL (33.0-37.0); MONO # 0.8 K/uL (0.0-0.8); MONO % 12.4 % (0.0-10.0); WHITE BLOOD COUNT 6.6 K/uL (4.8-10.8)
[2017-08-04 08:43] LABS: BILIRUBIN,TOTAL 0.5 mg/dL (0.2-1.3); CALCIUM 7.6 mg/dl (8.6-10.4); MAGNESIUM 1.6 mg/dL (1.6-2.3); POTASSIUM 4.4 mmol/L (3.6-5.2); TOTAL PROTEIN 5.5 g/dL (6.3-8.3)
[2017-08-04 08:46] LABS: ALB/GLOB RATIO 1.3 (1.0-2.1)
[2017-08-04] MEDS: Saccharomyces Boulardi 250 mg Cap PO SCH (09:21)
[2017-08-05] MEDS: Albuterol-Ipratrop 3 mg / 0.5 (3 ml) UD INH SCH ×4 (01:24→19:29)
[2017-08-05] MEDS: (Novolin R) Insulin Human Regular 100 units/ml vial SC SCH ×4 (07:53→22:00)
[2017-08-05 08:09] LABS: BASO % 0.6 % (0.0-2.0); EOS # 0.1 K/uL (0.0-0.7); EOS % 1.7 % (0.0-4.0); HEMATOCRIT 28.2 % (34.0-47.0); LYMPH # 1.5 K/uL (1.0-4.3); LYMPH % 19.6 % (20.0-40.0); MEAN CELL VOLUME 81.4 fL (81.0-99.0); MEAN CORPUSCULAR HGB CONC 31.9 g/dL (33.0-37.0); MEAN PLATELET VOLUME 8.2 fL (7.2-11.7); MONO % 13.2 % (0.0-10.0); NRBC % 0.1 % (0.0-2.0); WHITE BLOOD COUNT 7.4 K/uL (4.8-10.8)
[2017-08-05 08:26] LABS: BILIRUBIN,TOTAL 0.5 mg/dL (0.2-1.3); CALCIUM 7.6 mg/dl (8.6-10.4); MAGNESIUM 1.6 mg/dL (1.6-2.3); TOTAL PROTEIN 5.6 g/dL (6.3-8.3)
[2017-08-05 08:32] LABS: ALB/GLOB RATIO 1.3 (1.0-2.1)
[2017-08-05] MEDS: Saccharomyces Boulardi 250 mg Cap PO SCH (10:54)
[2017-08-06] MEDS: Albuterol-Ipratrop 3 mg / 0.5 (3 ml) UD INH SCH ×2 (01:13→07:59)
[2017-08-06 06:27] LABS: BASO % 0.4 % (0.0-2.0); EOS # 0.1 K/uL (0.0-0.7); EOS % 0.7 % (0.0-4.0); HEMATOCRIT 26.3 % (34.0-47.0); LYMPH # 1.3 K/uL (1.0-4.3); LYMPH % 17.2 % (20.0-40.0); MEAN CELL VOLUME 80.4 fL (81.0-99.0); MEAN CORPUSCULAR HEMOGLOBIN 26.2 pg (27.0-31.0); MEAN CORPUSCULAR HGB CONC 32.6 g/dL (33.0-37.0); MEAN PLATELET VOLUME 8.2 fL (7.2-11.7); MONO % 13.6 % (0.0-10.0); RED CELL DISTRIBUTION WIDTH 24.8 % (11.5-14.5); WHITE BLOOD COUNT 7.5 K/uL (4.8-10.8)
[2017-08-06 06:33] LABS: ALB/GLOB RATIO 0.9 (1.0-2.1); BILIRUBIN,TOTAL 0.4 mg/dL (0.2-1.3); CALCIUM 7.6 mg/dl (8.6-10.4); MAGNESIUM 1.6 mg/dL (1.6-2.3); PHOSPHOROUS 3.9 mg/dL (2.5-4.5); POTASSIUM 4.1 mmol/L (3.6-5.2); TOTAL PROTEIN 6.3 g/dL (6.3-8.3)
[2017-08-06] MEDS: (Novolin R) Insulin Human Regular 100 units/ml vial SC SCH (08:03)
[2017-08-06 08:58] VITALS: RESP 20
[2017-08-06 09:32] VITALS: BP 134/52; PULSE 85; O2SAT 96
[2017-08-06] MEDS: Saccharomyces Boulardi 250 mg Cap PO SCH (09:32)
[2017-08-06 12:11] VITALS: TEMP 99.2
== END 2017-08-06 10:55 | disposition home or self-care (01) | DRG 286 ==
LOC: C.ER 12:20 → C.9E 15:14 → C.6T 19:23
PROVIDERS: ADMIT Family Medicine; ATTEND Family Medicine
PROC: 4A023N7 Measurement of Cardiac Sampling and Pressure, Left Heart, Percutaneous Approach (ICD-10-PCS; principal; 2017-07-21)
PROC: B2151ZZ Fluoroscopy of Left Heart using Low Osmolar Contrast (ICD-10-PCS; 2017-07-21)
PROC: B2111ZZ Fluoroscopy of Multiple Coronary Arteries using Low Osmolar Contrast (ICD-10-PCS; 2017-07-21)
DX: I13.0 Hypertensive heart and chronic kidney disease with heart failure and stage 1 through stage 4 chronic kidney disease, or unspecified chronic kidney disease (principal); I50.33 Acute on chronic diastolic (congestive) heart failure; J18.9 Pneumonia, unspecified organism; N17.0 Acute kidney failure with tubular necrosis; E87.2 Acidosis; J98.11 Atelectasis; N39.0 Urinary tract infection, site not specified; E87.1 Hypo-osmolality and hyponatremia; W01.0XXA Fall on same level from slipping, tripping and stumbling without subsequent striking against object, initial encounter; D25.9 Leiomyoma of uterus, unspecified; D63.1 Anemia in chronic kidney disease; I27.20 Pulmonary hypertension, unspecified; I35.0 Nonrheumatic aortic (valve) stenosis; K74.60 Unspecified cirrhosis of liver; B96.20 Unspecified Escherichia coli [E. coli] as the cause of diseases classified elsewhere; D50.9 Iron deficiency anemia, unspecified; K59.00 Constipation, unspecified; K80.20 Calculus of gallbladder without cholecystitis without obstruction; N14.1 Nephropathy induced by other drugs, medicaments and biological substances; N18.9 Chronic kidney disease, unspecified; T50.8X5A Adverse effect of diagnostic agents, initial encounter; I07.1 Rheumatic tricuspid insufficiency; E87.5 Hyperkalemia; E11.22 Type 2 diabetes mellitus with diabetic chronic kidney disease; K57.90 Diverticulosis of intestine, part unspecified, without perforation or abscess without bleeding; E78.00 Pure hypercholesterolemia, unspecified; N80.9 Endometriosis, unspecified; E78.5 Hyperlipidemia, unspecified; G89.29 Other chronic pain; H54.7 Unspecified visual loss; Z79.82 Long term (current) use of aspirin; Z79.84 Long term (current) use of oral hypoglycemic drugs; Z79.899 Other long term (current) drug therapy; Z91.19 Patient's noncompliance with other medical treatment and regimen; Z97.5 Presence of (intrauterine) contraceptive device

== ENCOUNTER 2017-09-16 19:45 | Emergency (ER) | payer SELFPAY ==
[2017-09-16 19:45] VITALS: BMI 31.0
[2017-09-16 20:06] VITALS: O2SAT 98
[2017-09-16 20:20] VITALS: TEMP 99.9
--- NOTE | 2017-09-16 20:48 | C.PDOC ---
Chief Complaint (Nursing): Chest Pain Past Medical History Vital Signs: Last Vital Signs Temp 99.9 F H 09/16/17 19:57 Pulse 83 09/16/17 19:57 Resp 16 09/16/17 19:57 BP 175/74 H 09/16/17 19:57 Pulse Ox 98 09/16/17 19:57 - Medical History PMH: Anemia, Diabetes, HTN, Hypercholesterolemia, Hyperlipidemia Denies: Chronic Kidney Disease - [facility] Procedures FLUOROSCOPY OF LEFT HEART USING LOW OSMOLAR CONTRAST (07/17/17) FLUOROSCOPY OF MULT COR ART USING L OSM CONTRAST (07/17/17) MEASURE OF CARDIAC SAMPL & PRESSURE, L HEART, PERC APPROACH (07/17/17) Family History: States: Unknown Family Hx - Social History Hx Tobacco Use: No Hx Alcohol Use: No Hx Substance Use: No - Immunization History Hx Tetanus Toxoid Vaccination: No Hx Influenza Vaccination: No Hx Pneumococcal Vaccination: No ED Course And Treatment O2 Sat by Pulse Oximetry: 98 Disposition - Disposition
--- NOTE | 2017-09-16 20:50 | C.PDOC ---
History Of Present Illness 81 year old female presents to the emergency department with a complaint of a sore throat, congestion with difficulty breathing through the nose, cough, fever , sputum (green), and mild palpitations x5 days. Denies history of pneumonia, bronchitis, chronic obstructive pulmonary disease, or any further medical complaints. Time Seen by Provider: 09/16/17 19:45 Chief Complaint (Nursing): Chest Pain History Per: Patient, Family Onset/Duration Of Symptoms: Days (5) Current Symptoms Are (Timing): Still Present Past Medical History Reviewed: Historical Data, Nursing Documentation, Vital Signs Vital Signs: Last Vital Signs Temp 99.9 F H 09/16/17 19:57 Pulse 87 09/16/17 21:18 Resp 18 09/16/17 21:18 BP 165/85 H 09/16/17 21:18 Pulse Ox 98 09/16/17 21:09 - Medical History PMH: Anemia, Diabetes, HTN, Hypercholesterolemia, Hyperlipidemia Denies: Chronic Kidney Disease - [facility] Procedures FLUOROSCOPY OF LEFT HEART USING LOW OSMOLAR CONTRAST (07/17/17) FLUOROSCOPY OF MULT COR ART USING L OSM CONTRAST (07/17/17) MEASURE OF CARDIAC SAMPL & PRESSURE, L HEART, PERC APPROACH (07/17/17) Family History: States: Unknown Family Hx - Social History Hx Tobacco Use: No Hx Alcohol Use: No Hx Substance Use: No - Immunization History Hx Tetanus Toxoid Vaccination: No Hx Influenza Vaccination: No Hx Pneumococcal Vaccination: No Review Of Systems Except As Marked, All Systems Reviewed And Found Negative. (As per HPI, otherwise negative) Constitutional: Positive for: Fever ENT: Positive for: Nose Congestion, Throat Pain Cardiovascular: Positive for: Palpitations Respiratory: Positive for: Cough, Sputum (green) Physical Exam - Physical Exam Appears: Well, Non-toxic Skin: Normal Color, Warm, Dry Tongue: Normal Appearing Lips: Normal Appearing Teeth: Normal Dentition Gingiva: Normal Appearing Throat: Erythema (Mild pharyngeal) Lymphatic: Normal Exam, No Adenopathy Cardiovascular: Rhythm Regular (non accelerating), No Murmur Respiratory: Normal Breath Sounds, No Decreased Breath Sounds, No Accessory Muscle Use, No Wheezing Gastrointestinal/Abdominal: Normal Exam, Soft, No Tenderness Extremity: Normal ROM, No Pedal Edema Neurological/Psych: Oriented x3 (Awake and alert) ED Course And Treatment O2 Sat by Pulse Oximetry: 98 (RA) Pulse Ox Interpretation: Normal Medical Decision Making Medical Decision Making: Time: 2019 --EKG Time: 2046 --Chest 2 view x-ray --Reevaluation and disposition Time: 2102 --Chest x-ray read by me and shows no acute pulmonary disease. Time: 2105 --Patient is stable for discharge. Given Rx for Zithromax 250 mg and Susan-D 12 hr. Disposition - Disposition Referrals: [facility] [Outside] Disposition: HOME/ ROUTINE Disposition Time: 21:06 Condition: GOOD Prescriptions: Azithromycin [Zithromax] 250 mg PO DAILY #6 tab Fexofenadine/Pseudoephedrine [Susan-D 12 Hour Tablet] 1 each PO BID #10 tab.er.12h Instructions: Upper Respiratory Infection (ED) Forms: [facility] (Macedonian) Print Language: YEMENI - Clinical Impression Clinical Impression: Upper respiratory disease, Bronchitis
[2017-09-16 21:19] VITALS: BP 165/85; PULSE 87; RESP 18
--- NOTE | 2017-09-17 04:20 | RAD ---
HISTORY: cough COMPARISON: Chest x-ray performed 07/29/17 TECHNIQUE: Chest PA and lateral FINDINGS: Examination limited by habitus. LUNGS: Right hilar prominence re-identified however decreased in appearance since prior study. Please note that chest x-ray has limited sensitivity for the detection of pulmonary masses. PLEURA: No significant pleural effusion identified. No definite pneumothorax . CARDIOVASCULAR: Cardiomegaly. Atherosclerotic calcifications of the aorta. OSSEOUS STRUCTURES: Degenerative changes of the spine. Mild kyphosis. VISUALIZED UPPER ABDOMEN: Elevation of the right hemidiaphragm. OTHER FINDINGS: None. IMPRESSION: Cardiomegaly. Atherosclerotic calcifications. Right hilar prominence re-identified however decreased in appearance since prior study.
--- NOTE | 2017-09-19 09:03 | CARD ---
APPROVED REPORT EKG Measurement Heart [id number] <Conclusion> Normal sinus rhythm Left ventricular hypertrophy with repolarization abnormality Abnormal ECG
== END 2017-09-16 21:19 | disposition home or self-care (01) ==
LOC: C.ER 19:45
DX: J39.9 Disease of upper respiratory tract, unspecified (principal); J40 Bronchitis, not specified as acute or chronic; E11.9 Type 2 diabetes mellitus without complications; E78.00 Pure hypercholesterolemia, unspecified

== ENCOUNTER 2018-01-04 10:07 | Emergency (ER) | payer OTHER ==
[2018-01-04 10:07] VITALS: BMI 31.0
[2018-01-04 10:15] VITALS: BP 188/84; PULSE 84; RESP 18; TEMP 97.8; O2SAT 98
--- NOTE | 2018-01-04 11:14 | C.PDOC ---
History Of Present Illness 82 y/o female presents to the ED requesting med refills for 6 of her 10 medications. Seen in November in the clinic but states she only got 1 month refills for these medications. Offers no physical complaints. Time Seen by Provider: 01/04/18 11:08 Chief Complaint (Nursing): Med Refill History Per: Patient History/Exam Limitations: no limitations Onset/Duration Of Symptoms: Days Current Symptoms Are (Timing): Still Present Past Medical History Reviewed: Historical Data, Nursing Documentation, Vital Signs Vital Signs: Last Vital Signs Temp 97.8 F 01/04/18 10:09 Pulse 84 01/04/18 10:09 Resp 18 01/04/18 10:09 BP 188/84 H 01/04/18 10:09 Pulse Ox 98 01/04/18 11:15 - Medical History PMH: Anemia, Diabetes, HTN, Hypercholesterolemia, Hyperlipidemia Denies: Chronic Kidney Disease Surgical History: No Surg Hx - [facility] Procedures FLUOROSCOPY OF LEFT HEART USING LOW OSMOLAR CONTRAST (07/17/17) FLUOROSCOPY OF MULT COR ART USING L OSM CONTRAST (07/17/17) MEASURE OF CARDIAC SAMPL & PRESSURE, L HEART, PERC APPROACH (07/17/17) Family History: States: Unknown Family Hx - Social History Hx Tobacco Use: No Hx Alcohol Use: No Hx Substance Use: No - Immunization History Hx Tetanus Toxoid Vaccination: No Hx Influenza Vaccination: No Hx Pneumococcal Vaccination: No Review Of Systems Except As Marked, All Systems Reviewed And Found Negative. Constitutional: Negative for: Fever Cardiovascular: Negative for: Chest Pain Respiratory: Negative for: Shortness of Breath Gastrointestinal: Negative for: Vomiting Physical Exam - Physical Exam Appears: Non-toxic, No Acute Distress, Other (Elderly female) Skin: Normal Color, Warm, Dry Head: Atraumatic, Normacephalic Eye(s): bilateral: Normal Inspection, PERRL, EOMI Nose: Normal Oral Mucosa: Moist Neck: Normal ROM Chest: Symmetrical Cardiovascular: Rhythm Regular, No Murmur Respiratory: Normal Breath Sounds, No Accessory Muscle Use Gastrointestinal/Abdominal: Soft, No Tenderness, No Distention Extremity: Bilateral: Atraumatic, No Pedal Edema, Normal Color And Temperature, Normal ROM Neurological/Psych: Oriented x3, Normal Speech ED Course And Treatment O2 Sat by Pulse Oximetry: 98 (RA) Pulse Ox Interpretation: Normal Medical Decision Making Medical Decision Making: Impression: refills of meds provided defer refill lasix as no s/s of CHF at this time and restarting 3-4 meds should be done stepwise Upon discharge, patient is now complaining of chest pain for the last 4 days. On exam, no digitally reproducible chest tenderness appreciated. Ordered EKG. Patient referred back to triage and will be transferred to main ED. Disposition Doctor Will See Patient In The: Office Counseled Patient/Family Regarding: Studies Performed, Diagnosis - Disposition Referrals: [facility] [Outside] Disposition: HOME/ ROUTINE Disposition Time: 11:15 Condition: GOOD Additional Instructions: sigue los medicamentos jah normal Llama para hacer ngozi en la Clinica en 2-3 meces Prescriptions: amLODIPine [Norvasc] 5 mg PO DAILY #30 tab Aspirin [Ecotrin] 81 mg PO DAILY #30 tabec Carvedilol [Coreg] 25 mg PO BID #30 tab MetFORMIN [glucoPHAGE] 1,000 mg PO BID #60 tab Instructions: High Blood Pressure in Adults Forms: [facility] (Macedonian) Print Language: TAMAZIGHT - Clinical Impression Clinical Impression: Review of medication - Scribe Statement The provider has reviewed the documentation as recorded by the Scribe (Megha Colon) Provider Attestation: All medical record entries made by the Scribe were at my direction and personally dictated by me. I have reviewed the chart and agree that the record accurately reflects my personal performance of the history, physical exam, medical decision making, and the department course for this patient. I have also personally directed, reviewed, and agree with the discharge instructions and disposition.
== END 2018-01-04 11:22 | disposition home or self-care (01) ==
LOC: C.ER 10:07
DX: Z00.8 Encounter for other general examination (principal)

== ENCOUNTER 2018-01-04 11:43 | Observation (INO) | payer MEDICAID, OTHER ==
[2018-01-04 11:43] VITALS: BMI 31.0
--- NOTE | 2018-01-04 12:17 | C.PDOC ---
History Of Present Illness 82-year-old female, presents to the emergency department with complains of chest pain that is associated with shortness of breath and dizziness for 4 days. She reports chest pain feels tight and is intermittent and SOB is worse on exertion. Patient also complains of left-sided abdominal pain associated with constipation x4 days, but had normal bowel movement yesterday. Patient has a history of hypertension, but is non-compliant with medication because she ran out. Denies nausea/vomiting, fever, chills, headache or any other associated symptoms. no other complaint at this time. Time Seen by Provider: 01/04/18 12:04 Chief Complaint (Nursing): Chest Pain Past Medical History Reviewed: Historical Data, Nursing Documentation, Vital Signs Vital Signs: Last Vital Signs Temp 97.6 F 01/04/18 16:00 Pulse 65 01/04/18 16:00 Resp 20 01/04/18 16:00 BP 220/80 H 01/04/18 16:00 Pulse Ox 96 01/04/18 16:00 - Medical History PMH: Anemia, Diabetes, HTN, Hypercholesterolemia, Hyperlipidemia - [facility] Procedures FLUOROSCOPY OF LEFT HEART USING LOW OSMOLAR CONTRAST (07/17/17) FLUOROSCOPY OF MULT COR ART USING L OSM CONTRAST (07/17/17) MEASURE OF CARDIAC SAMPL & PRESSURE, L HEART, PERC APPROACH (07/17/17) Family History: States: No Known Family Hx - Social History Hx Tobacco Use: No Hx Alcohol Use: No Hx Substance Use: No - Immunization History Hx Tetanus Toxoid Vaccination: No Hx Influenza Vaccination: No Hx Pneumococcal Vaccination: No Review Of Systems Constitutional: Negative for: Fever, Chills Cardiovascular: Positive for: Chest Pain. Negative for: Palpitations Respiratory: Positive for: Shortness of Breath Gastrointestinal: Positive for: Abdominal Pain, Constipation. Negative for: Vomiting Musculoskeletal: Negative for: Back Pain Skin: Negative for: Rash Neurological: Positive for: Dizziness. Negative for: Weakness, Numbness, Headache Physical Exam - Physical Exam Appears: Non-toxic, No Acute Distress Skin: Normal Color, Warm, Dry, No Rash Head: Atraumatic, Normacephalic Eye(s): bilateral: Normal Inspection, PERRL, EOMI Nose: Normal Oral Mucosa: Moist Lips: Normal Appearing Neck: Normal ROM Chest: Symmetrical Cardiovascular: Rhythm Regular, No Murmur Respiratory: Normal Breath Sounds, No Accessory Muscle Use Gastrointestinal/Abdominal: Bowel Sounds, Soft, Tenderness (left-sided very mildly tender), No Distention, No Guarding, No Rebound Extremity: Normal ROM, No Deformity, No Swelling Neurological/Psych: Oriented x3, Normal Speech ED Course And Treatment - Laboratory Results Result Diagrams: 01/04/18 12:33 01/04/18 12:33 ECG: Interpreted By Me, Viewed By Me ECG Rhythm: Sinus Rhythm, PVC ECG Interpretation: No Acute Changes Rate From EC O2 Sat by Pulse Oximetry: 96 (RA) Pulse Ox Interpretation: Normal Medical Decision Making Medical Decision Making: Impression: Chest pain, abdominal pain, HTN Plan: * Blood work * Chest X-Ray * Lasix, Norvasc * UA Patient noncompliant with medications and has uncontrolled HTN. Orders placed for labs and CXR. Treated with Lasix and Norvasc Diagnostics reviewed, neg troponin, BNP>2000. BP still elevated ordered additional meds Will contact hospitalist for admission Spoke with DR Shereen Gardner to obs patient and he accepts Disposition - Disposition Disposition: HOSPITALIZED Disposition Time: 13:40 Condition: STABLE - Clinical Impression Clinical Impression: Congestive heart failure, Hypertensive urgency - Scribe Statement The provider has reviewed the documentation as recorded by the Scribe (Concepcion Concepcion) All medical record entries made by the Scribe were at my direction and personally dictated by me. I have reviewed the chart and agree that the record accurately reflects my personal performance of the history, physical exam, medical decision making, and the department course for this patient. I have also personally directed, reviewed, and agree with the discharge instructions and disposition. Decision To Admit - Pt Status Changed To: Hospital Disposition Of: Observation - . Bed Request Type: Telemetry Admitting Physician: Claudio Gardner Patient Diagnosis: Congestive heart failure, Hypertensive urgency
[2018-01-04 12:39] LABS: BASO # 0.1 K/uL (0.0-0.2); BASO % 1.1 % (0.0-2.0); EOS # 0.2 K/uL (0.0-0.7); EOS % 2.8 % (0.0-4.0); HEMOGLOBIN 10.7 g/dL (11.0-16.0); LYMPH # 2.2 K/uL (1.0-4.3); LYMPH % 36.5 % (20.0-40.0); MEAN CELL VOLUME 81.7 fL (81.0-99.0); MEAN CORPUSCULAR HEMOGLOBIN 28.1 pg (27.0-31.0); MEAN CORPUSCULAR HGB CONC 34.4 g/dL (33.0-37.0); MONO # 0.6 K/uL (0.0-0.8); MONO % 9.7 % (0.0-10.0); NEUT # 2.9 K/uL (1.8-7.0); NEUT % 49.9 % (50.0-75.0); RBC 3.81 Mil/uL (3.80-5.20); RED CELL DISTRIBUTION WIDTH 15.4 % (11.5-14.5); WHITE BLOOD COUNT 5.9 K/uL (4.8-10.8)
[2018-01-04 12:46] LABS: PROTHROMBIN TIME 11.3 SECONDS (9.7-12.2)
[2018-01-04 12:58] LABS: ALB/GLOB RATIO 1.2 (1.0-2.1); ALBUMIN 4.1 g/dL (3.5-5.0); ALT/SGPT 28 U/L (9-52); AST/SGOT 40 U/L (14-36); BLOOD UREA NITROGEN 19 mg/dL (7-17); CALCIUM 8.9 mg/dl (8.6-10.4); GFR AFRICAN-AMERICAN > 60; GFR NON-AFRICAN AMERICAN > 60; HDL CHOLESTEROL 49 mg/dL (30-70)
[2018-01-04 13:08] LABS: B-TYPE NATRIURETIC PEPTIDE 2620 pg/mL (0-900)
[2018-01-04 13:09] LABS: SQUAMOUS EPITHIAL 4 /hpf (0-5); URINE BILIRUBIN NEGATIVE (NEGATIVE); URINE BLOOD NEGATIVE (NEGATIVE); URINE CLARITY Clear (Clear); URINE COLOR Yellow (YELLOW); URINE GLUCOSE (UA) NORMAL (Normal); URINE LEUKOCYTE ESTERASE NEG Leu/uL (Negative); URINE PROTEIN 2+ mg/dL (NEGATIVE); URINE UROBILINOGEN NORMAL mg/dL (0.2-1.0)
[2018-01-04 13:10] LABS: LDL CHOLESTEROL 98 mg/dL (0-129)
--- NOTE | 2018-01-04 13:17 | RAD ---
HISTORY: chest pain COMPARISON: Chest radiograph dated 09/16/2017. TECHNIQUE: Chest PA and lateral FINDINGS: LUNGS: No active pulmonary disease. PLEURA: No significant pleural effusion identified. No pneumothorax apparent. CARDIOVASCULAR: Atherosclerotic aortic calcifications. Cardiomediastinal silhouette stably prominent. OSSEOUS STRUCTURES: Unchanged. VISUALIZED UPPER ABDOMEN: Normal. OTHER FINDINGS: None. IMPRESSION: No active disease.
[2018-01-04] MEDS ORDERED: Metoprolol 1 mg/ml Inj IVP STA (13:29)
[2018-01-04] MEDS ORDERED: Metoprolol 1 mg/ml Inj IVP ONE (13:46)
--- NOTE | 2018-01-04 14:21 | CP.PCM.HP ---
<Lashay Carlin - Last Filed: 01/04/18 15:09> History of Present Illness - History of Present Illness History of Present Illness: CC - "chest pain", "med refills" HPI - 82-year-old female, presents to the emergency department with complains of chest pain that is associated with shortness of breath and dizziness for 4 days. She originally presented today asking for medications refills but then when she was going to be discharged stated she was having pain. She reports chest pain feels tight right in the middle of her chest. Come and goes without radiation. She states it is worse when she touches this area. No associated diaphroesis or N/V but reports SOB worse on exertion. Patient also complains of left-sided abdominal pain associated with constipation x4 days. She states she has not had a BM in 2-3 days. She states "a little came out" yesterday but that she has to strain frequently in order to go to the bathroom. No other complaints at this time. Her BP was noted to be high on presentation to the ER. Patient denied headaches or changes in vision. It has been documented many times in [facility] EMR at the [facility] that the patient has been non complaint with medications. She has also been refereed many times to specialist such as cardiology, GI, nephrology, etc and has never gone to see these specialists. PMH - HTN, DM, CHF (diastolic), anemia Surgeries/Procedures - Cardiac cath 07/21/17 (normal coronies) FamilyHx - unremarkable Meds - Norvasc 5mg once a day: 1PM Aspirin 81mg once a day: 7AM Coreg 25mg twice a day: 10AM and 10PM Lasix 40mg once a day: 7AM Gabapentin 100mg three times per day: 7AM, 1PM, 7PM Hydralazine 100mg three time per day: 7AM, 1PM, 7PM Atorvastatin 20mg once a day: 7PM Metformin 1,000mg twice a day: breakfast and dinner Allergies - Metronidazole - rash Social - Denies tobacco use, alcohol use or drug use PMD - Dr. Gu ([facility]) (Patient was last admitted in August 2017. Please refer to DC summary on for admission details.) Present on Admission - Present on Admission Any Indicators Present on Admission: No Review of Systems - Constitutional Constitutional: absent: Chills, Fever - EENT Eyes: absent: Blurred Vision, Change in Vision Ears: Dizziness - Cardiovascular Cardiovascular: Chest Pain, Chest Pain at Rest, Dyspnea on Exertion, Leg Edema. absent: Diaphoresis, Palpitations, Syncope - Respiratory Respiratory: Dyspnea on Exertion. absent: Cough, Dyspnea - Gastrointestinal Gastrointestinal: Abdominal Pain, Constipation. absent: Diarrhea, Nausea, Vomiting - Genitourinary Genitourinary: absent: Change in Urinary Stream, Difficulty Urinating - Neurological Neurological: Dizziness. absent: Numbness, Syncope, Weakness Past Patient History - Infectious Disease Hx of Infectious Diseases: None - Past Medical History & Family History Past Medical History?: Yes - Past Social History Smoking Status: Never Smoked - CARDIAC Hx Hypercholesterolemia: Yes Hx Hypertension: Yes - PULMONARY Hx Respiratory Disorders: No - NEUROLOGICAL Hx Neurological Disorder: No - HEENT Hx HEENT Problems: No - RENAL Hx Chronic Kidney Disease: No - ENDOCRINE/METABOLIC Hx Endocrine Disorders: Yes Hx Diabetes Mellitus Type 2: Yes - HEMATOLOGICAL/ONCOLOGICAL Hx Anemia: Yes - INTEGUMENTARY Hx Dermatological Problems: No - MUSCULOSKELETAL/RHEUMATOLOGICAL Hx Musculoskeletal Disorders: No Hx Falls: No - GASTROINTESTINAL Hx Gastrointestinal Disorders: No - GENITOURINARY/GYNECOLOGICAL Hx Genitourinary Disorders: No - PSYCHIATRIC Hx Substance Use: No - SURGICAL HISTORY Hx Surgeries: No - ANESTHESIA Hx Anesthesia: No Hx Anesthesia Reactions: No Meds Allergies/Adverse Reactions: Allergies Allergy/AdvReac Type Severity Reaction Status Date / Time metronidazole [From Flagyl] Allergy RASH Verified 01/04/18 10:15 Physical Exam - Constitutional Appears: Non-toxic, No Acute Distress - Head Exam Head Exam: ATRAUMATIC, NORMAL INSPECTION - Eye Exam Eye Exam: EOMI Pupil Exam: NORMAL ACCOMODATION - ENT Exam ENT Exam: Mucous Membranes Moist - Respiratory Exam Respiratory Exam: Clear to Auscultation Bilateral, NORMAL BREATHING PATTERN. absent: Accessory Muscle Use, Rales, Wheezes, Respiratory Distress - Cardiovascular Exam Cardiovascular Exam: REGULAR RHYTHM, +S1, +S2 - GI/Abdominal Exam GI & Abdominal Exam: Normal Bowel Sounds, Soft, Tenderness. absent: Distended, Firm, Guarding - Extremities Exam Extremities exam: Positive for: pedal edema Additional comments: tenderness in legs b/l generalized - Back Exam Back exam: NORMAL INSPECTION - Neurological Exam Neurological exam: Alert, CN II-XII Intact, Normal Gait, Oriented x3 - Psychiatric Exam Psychiatric exam: Normal Affect, Normal Mood - Skin Skin Exam: Dry, Normal Color Additional comments: redness on arms and scratch madrid on upper back Results - Vital Signs Recent Vital Signs: Last Vital Signs Temp 98.4 F 01/04/18 12:03 Pulse 70 01/04/18 13:17 Resp 18 01/04/18 13:17 BP 224/82 H 01/04/18 13:50 Pulse Ox 96 01/04/18 13:35 - Labs Result Diagrams: 01/04/18 12:33 01/04/18 12:33 Labs: Laboratory Results - last 24 hr 01/04/18 01/04/18 01/04/18 12:33 12:33 12:33 WBC 5.9 RBC 3.81 Hgb 10.7 L Hct 31.1 L MCV 81.7 MCH 28.1 MCHC 34.4 RDW 15.4 H Plt Count 169 MPV 8.0 Neut % (Auto) 49.9 L Lymph % (Auto) 36.5 [place]aines % (Auto) 9.7 Eos % (Auto) 2.8 Baso % (Auto) 1.1 Neut # (Auto) 2.9 Lymph # (Auto) 2.2 [place] # (Auto) 0.6 Eos # (Auto) 0.2 Baso # (Auto) 0.1 PT 11.3 INR 1.0 APTT 37 H Sodium 143 Potassium 4.2 Chloride 109 H Carbon Dioxide 20 L Anion Gap 18 BUN 19 H Creatinine 0.9 Est GFR ( Amer) > 60 Est GFR (Non-Af Amer) > 60 Random Glucose 103 Calcium 8.9 Total Bilirubin 0.5 AST 40 H D ALT 28 Alkaline Phosphatase 104 Troponin I < 0.0120 NT-Pro-B Natriuret Pep 2620 H Total Protein 7.4 Albumin 4.1 Globulin 3.3 Albumin/Globulin Ratio 1.2 Triglycerides 218 H Cholesterol 198 LDL Cholesterol Direct 98 HDL Cholesterol 49 Urine Color Urine Clarity Urine pH Ur Specific [place] Urine Protein Urine Glucose (UA) Urine Ketones Urine Blood Urine Nitrate Urine Bilirubin Urine Urobilinogen Ur Leukocyte Esterase Urine WBC (Auto) Urine RBC (Auto) Ur Squamous Epith Cells 01/04/18 12:48 WBC RBC Hgb Hct MCV MCH MCHC RDW Plt Count MPV Neut % (Auto) Lymph % (Auto) [place] % (Auto) Eos % (Auto) Baso % (Auto) Neut # (Auto) Lymph # (Auto) [place] # (Auto) Eos # (Auto) Baso # (Auto) PT INR APTT Sodium Potassium Chloride Carbon Dioxide Anion Gap BUN Creatinine Est GFR ( Amer) Est GFR (Non-Af Amer) Random Glucose Calcium Total Bilirubin AST ALT Alkaline Phosphatase Troponin I NT-Pro-B Natriuret Pep Total Protein Albumin Globulin Albumin/Globulin Ratio Triglycerides Cholesterol LDL Cholesterol Direct HDL Cholesterol Urine Color Yellow Urine Clarity Clear Urine pH 6.0 Ur Specific [place] 1.010 Urine Protein 2+ H Urine Glucose (UA) Normal Urine Ketones Negative Urine Blood Negative Urine Nitrate Negative Urine Bilirubin Negative Urine Urobilinogen Normal Ur Leukocyte Esterase Neg Urine WBC (Auto) 1 Urine RBC (Auto) 1 Ur Squamous Epith Cells 4 Assessment & Plan - Assessment and Plan (Free Text) Assessment: Hypertensive urgency -BP 220/102 on admission -Patient was give Norvasc 5 PO, Labetalol 5 IVP and Lasix 40 IV in the ED -Hydralazine 10mg IVP prn bp >180/90 Will continue home meds - Meds: Norvasc 5mg once a day Coreg 25mg twice a day Hydralazine 100mg three time per day Chest pain, likely chostrocondritis - chest pain is reproducible on exam, no matt for cardiology consult at this time. - EKG - LVH, no acute ST changes - EUGENIA negative x 1, will trend - Stress Test (07/20/17) - Showed defect possibly representing ischemia - Cardiac Cath (07/21/17) - Angiographically normal coronaries and normal LV systolic function - Echo (07/17/17):Grade II diastolic dysfunction; EF 55% - ASA 81mg PO daily Diastolic CHF (Type II) - Controlled - BNP 2620 - daily weights/monitor intake and output - Meds: Aspirin 81mg once a day Coreg 25mg twice a day Lasix 40mg once a day Atorvastatin 20mg once a day: 7PM Chronic Leg Pain - Gabapentin 100mg PO TID Constipation - Miralax PO BID prn Diabetes - ISS High - Accuchecks - Will hold metformin while in the hospital - Hypoglycemia protocol Hx anemia - Stable, likely due to chronic disease and low iron - was seen by heme/onc on last visit Rash, itching - Solumedrol 125mg IVP x 1 dose Hx. Non compliance - Counselled Prophylactic measure - Lovenox 40mg SC daily - GI: not indicated - Consistent carb, heart healthy, 2gm sodium diet <Gardner,Peter H - Last Filed: 01/04/18 16:03> Results - Vital Signs Recent Vital Signs: Last Vital Signs Temp 98.7 F 01/04/18 14:52 Pulse 60 01/04/18 14:52 Resp 12 01/04/18 14:52 BP 199/88 H 01/04/18 14:52 Pulse Ox 97 01/04/18 14:52 - Labs Result Diagrams: 01/04/18 12:33 01/04/18 12:33 Labs: Laboratory Results - last 24 hr 01/04/18 01/04/18 01/04/18 12:33 12:33 12:33 WBC 5.9 RBC 3.81 Hgb 10.7 L Hct 31.1 L MCV 81.7 MCH 28.1 MCHC 34.4 RDW 15.4 H Plt Count 169 MPV 8.0 Neut % (Auto) 49.9 L Lymph % (Auto) 36.5 [place] % (Auto) 9.7 Eos % (Auto) 2.8 Baso % (Auto) 1.1 Neut # (Auto) 2.9 Lymph # (Auto) 2.2 [place] # (Auto) 0.6 Eos # (Auto) 0.2 Baso # (Auto) 0.1 PT 11.3 INR 1.0 APTT 37 H Sodium 143 Potassium 4.2 Chloride 109 H Carbon Dioxide 20 L Anion Gap 18 BUN 19 H Creatinine 0.9 Est GFR ( Amer) > 60 Est GFR (Non-Af Amer) > 60 Random Glucose 103 Calcium 8.9 Total Bilirubin 0.5 AST 40 H D ALT 28 Alkaline Phosphatase 104 Troponin I < 0.0120 NT-Pro-B Natriuret Pep 2620 H Total Protein 7.4 Albumin 4.1 Globulin 3.3 Albumin/Globulin Ratio 1.2 Triglycerides 218 H Cholesterol 198 LDL Cholesterol Direct 98 HDL Cholesterol 49 Urine Color Urine Clarity Urine pH Ur Specific [place] Urine Protein Urine Glucose (UA) Urine Ketones Urine Blood Urine Nitrate Urine Bilirubin Urine Urobilinogen Ur Leukocyte Esterase Urine WBC (Auto) Urine RBC (Auto) Ur Squamous Epith Cells 01/04/18 12:48 WBC RBC Hgb Hct MCV MCH MCHC RDW Plt Count MPV Neut % (Auto) Lymph % (Auto) [place] % (Auto) Eos % (Auto) Baso % (Auto) Neut # (Auto) Lymph # (Auto) [place] # (Auto) Eos # (Auto) Baso # (Auto) PT INR APTT Sodium Potassium Chloride Carbon Dioxide Anion Gap BUN Creatinine Est GFR ( Amer) Est GFR (Non-Af Amer) Random Glucose Calcium Total Bilirubin AST ALT Alkaline Phosphatase Troponin I NT-Pro-B Natriuret Pep Total Protein Albumin Globulin Albumin/Globulin Ratio Triglycerides Cholesterol LDL Cholesterol Direct HDL Cholesterol Urine Color Yellow Urine Clarity Clear Urine pH 6.0 Ur Specific [place] 1.010 Urine Protein 2+ H Urine Glucose (UA) Normal Urine Ketones Negative Urine Blood Negative Urine Nitrate Negative Urine Bilirubin Negative Urine Urobilinogen Normal Ur Leukocyte Esterase Neg Urine WBC (Auto) 1 Urine RBC (Auto) 1 Ur Squamous Epith Cells 4 Attending/Attestation - Attestation I have personally seen and examined this patient.: Yes I have fully participated in the care of the patient.: Yes I have reviewed all pertinent clinical information: Yes Notes (Text): 01/04/18 15:58 Medical attending: Patient was seen and examined by me. Agree with the above note by the resident. The patient was seen with the resident in the ER. She reported having some anterior wall chest pain - it was reproducible on exam nevertheless will check additional cardiac enzymes. Her blood pressure is signifigantly elevated - will give labetaolol IV now and also IV hydralzazine. She has not been on her medication for BP so will restart that now as well. Per review of previous notes, she has had an extensive work up in the recent past Claudio Gardner
[2018-01-04] MEDS ORDERED: Labetalol 25mg/5ml Syringe IVP STA ×2 (14:34→14:41)
[2018-01-04] MEDS ORDERED: POLYETHYLENE GLYCOL 3350 17 GM/Dose PACKET PO PRN (15:03)
[2018-01-04] MEDS ORDERED: Dextrose 50% SYRINGE Inj (50 ml) IV PRN (15:12)
[2018-01-04] MEDS ORDERED: Glucagon Recombinant 1 mg Inj IM PRN (15:12)
[2018-01-04] MEDS ORDERED: Nitroglycerin 2% Ointment Foilpak UD TOP STA (15:52)
[2018-01-04] MEDS: (Novolin R) Insulin Human Regular 100 units/ml vial SC SCH ×2 (17:12→21:21)
[2018-01-05 01:45] LABS: CK-MB 0.79 ng/mL (0.0-3.38)
[2018-01-05 07:46] VITALS: PULSE 72; RESP 18; TEMP 98; O2SAT 97
[2018-01-05] MEDS: (Novolin R) Insulin Human Regular 100 units/ml vial SC SCH ×2 (08:22→11:49)
[2018-01-05] MEDS ORDERED: Enoxaparin 40 mg Syringe SC SCH (10:00)
[2018-01-05 11:22] LABS: BASO % 0.3 % (0.0-2.0); HEMOGLOBIN 10.2 g/dL (11.0-16.0); LYMPH # 0.8 K/uL (1.0-4.3); MEAN CORPUSCULAR HEMOGLOBIN 28.1 pg (27.0-31.0); MEAN CORPUSCULAR HGB CONC 34.2 g/dL (33.0-37.0); MEAN PLATELET VOLUME 8.8 fL (7.2-11.7); MONO # 0.5 K/uL (0.0-0.8); MONO % 7.6 % (0.0-10.0); NEUT # 5.6 K/uL (1.8-7.0); NEUT % 81.1 % (50.0-75.0); NRBC % 0.1 % (0.0-2.0); RBC 3.64 Mil/uL (3.80-5.20); RED CELL DISTRIBUTION WIDTH 15.3 % (11.5-14.5)
[2018-01-05 11:43] LABS: ALB/GLOB RATIO 1.2 (1.0-2.1); ALBUMIN 3.8 g/dL (3.5-5.0); CALCIUM 8.6 mg/dl (8.6-10.4)
--- NOTE | 2018-01-05 11:53 | CARD ---
APPROVED REPORT EKG Measurement Heart [id number] <Conclusion> Sinus rhythm with occasional premature ventricular complexes Nonspecific ST and T wave abnormality Prolonged QT Abnormal ECG
[2018-01-05 13:20] VITALS: BP 135/68
--- NOTE | 2018-01-05 18:23 | CP.PCM.DIS ---
<Angely Adan - Last Filed: 01/05/18 18:19> Provider - Provider Date of Admission: 01/04/18 13:43 Attending physician: Claudio Gardner DO Time Spent in preparation of Discharge (in minutes): 35 Diagnosis - Discharge Diagnosis (1) Hypertensive urgency Status: Acute Hospital Course - Lab Results Lab Results: Most Recent Lab Values WBC 7.0 K/uL (4.8-10.8) 01/05/18 11:16 RBC 3.64 Mil/uL (3.80-5.20) L 01/05/18 11:16 Hgb 10.2 g/dL (11.0-16.0) L 01/05/18 11:16 Hct 29.8 % (34.0-47.0) L 01/05/18 11:16 MCV 82.0 fL (81.0-99.0) 01/05/18 11:16 MCH 28.1 pg (27.0-31.0) 01/05/18 11:16 MCHC 34.2 g/dL (33.0-37.0) 01/05/18 11:16 RDW 15.3 % (11.5-14.5) H 01/05/18 11:16 Plt Count 147 K/uL (130-400) 01/05/18 11:16 MPV 8.8 fL (7.2-11.7) 01/05/18 11:16 Neut % (Auto) 81.1 % (50.0-75.0) H 01/05/18 11:16 Lymph % (Auto) 11.0 % (20.0-40.0) L 01/05/18 11:16 [place] % (Auto) 7.6 % (0.0-10.0) 01/05/18 11:16 Eos % (Auto) 0.0 % (0.0-4.0) 01/05/18 11:16 Baso % (Auto) 0.3 % (0.0-2.0) 01/05/18 11:16 Neut # (Auto) 5.6 K/uL (1.8-7.0) 01/05/18 11:16 Lymph # (Auto) 0.8 K/uL (1.0-4.3) L 01/05/18 11:16 [place] # (Auto) 0.5 K/uL (0.0-0.8) 01/05/18 11:16 Eos # (Auto) 0.0 K/uL (0.0-0.7) 01/05/18 11:16 Baso # (Auto) 0.0 K/uL (0.0-0.2) 01/05/18 11:16 PT 11.3 SECONDS (9.7-12.2) 01/04/18 12:33 INR 1.0 01/04/18 12:33 APTT 37 SECONDS (21-34) H 01/04/18 12:33 Sodium 137 mmol/L (132-148) 01/05/18 11:16 Potassium 4.5 mmol/L (3.6-5.2) 01/05/18 11:16 Chloride 105 mmol/L (98-107) 01/05/18 11:16 Carbon Dioxide 17 mmol/L (22-30) L 01/05/18 11:16 Anion Gap 20 (10-20) 01/05/18 11:16 BUN 41 mg/dL (7-17) H 01/05/18 11:16 Creatinine 1.6 mg/dL (0.7-1.2) H 01/05/18 11:16 Est GFR ( Amer) 38 01/05/18 11:16 Est GFR (Non-Af Amer) 31 01/05/18 11:16 POC Glucose (mg/dL) 252 mg/dL (65-110) H 01/05/18 11:32 Random Glucose 274 mg/dL (65-105) H 01/05/18 11:16 Calcium 8.6 mg/dl (8.6-10.4) 01/05/18 11:16 Phosphorus 3.7 mg/dL (2.5-4.5) 01/05/18 11:16 Magnesium 2.1 mg/dL (1.6-2.3) 01/05/18 11:16 Total Bilirubin 0.4 mg/dL (0.2-1.3) 01/05/18 11:16 AST 33 U/L (14-36) 01/05/18 11:16 ALT 25 U/L (9-52) 01/05/18 11:16 Alkaline Phosphatase 89 U/L (38-126) 01/05/18 11:16 Total Creatine Kinase 40 U/L (30-135) 01/05/18 01:17 CK-MB (Mass) 0.79 ng/mL (0.0-3.38) 01/05/18 01:17 Troponin I < 0.0120 ng/mL (0.00-0.120) 01/05/18 01:17 NT-Pro-B Natriuret Pep 2620 pg/mL (0-900) H 01/04/18 12:33 Total Protein 6.9 g/dL (6.3-8.3) 01/05/18 11:16 Albumin 3.8 g/dL (3.5-5.0) 01/05/18 11:16 Globulin 3.1 gm/dL (2.2-3.9) 01/05/18 11:16 Albumin/Globulin Ratio 1.2 (1.0-2.1) 01/05/18 11:16 Triglycerides 218 mg/dL (0-149) H 01/04/18 12:33 Cholesterol 198 mg/dL (0-199) 01/04/18 12:33 LDL Cholesterol Direct 98 mg/dL (0-129) 01/04/18 12:33 HDL Cholesterol 49 mg/dL (30-70) 01/04/18 12:33 Urine Color Yellow (YELLOW) 01/04/18 12:48 Urine Clarity Clear (Clear) 01/04/18 12:48 Urine pH 6.0 (5.0-8.0) 01/04/18 12:48 Ur Specific [place] 1.010 (1.003-1.030) 01/04/18 12:48 Urine Protein 2+ mg/dL (NEGATIVE) H 01/04/18 12:48 Urine Glucose (UA) Normal mg/dL (Normal) 01/04/18 12:48 Urine Ketones Negative mg/dL (NEGATIVE) 01/04/18 12:48 Urine Blood Negative (NEGATIVE) 01/04/18 12:48 Urine Nitrate Negative (NEGATIVE) 01/04/18 12:48 Urine Bilirubin Negative (NEGATIVE) 01/04/18 12:48 Urine Urobilinogen Normal mg/dL (0.2-1.0) 01/04/18 12:48 Ur Leukocyte Esterase Neg Farhan/uL (Negative) 01/04/18 12:48 Urine WBC (Auto) 1 /hpf (0-5) 01/04/18 12:48 Urine RBC (Auto) 1 /hpf (0-3) 01/04/18 12:48 Ur Squamous Epith Cells 4 /hpf (0-5) 01/04/18 12:48 - Hospital Course Hospital Course: Upon admission: 82-year-old female, presents to the emergency department with complains of chest pain that is associated with shortness of breath and dizziness for 4 days. She originally presented today asking for medications refills but then when she was going to be discharged stated she was having pain. She reports chest pain feels tight right in the middle of her chest. Come and goes without radiation. She states it is worse when she touches this area. No associated diaphroesis or N/V but reports SOB worse on exertion. Patient also complains of left-sided abdominal pain associated with constipation x4 days. She states she has not had a BM in 2-3 days. She states "a little came out" yesterday but that she has to strain frequently in order to go to the bathroom. No other complaints at this time. Her BP was noted to be high on presentation to the ER. Patient denied headaches or changes in vision. It has been documented many times in [facility] EMR at the [facility] that the patient has been non complaint with medications. She has also been refereed many times to specialist such as cardiology, GI, nephrology, etc and has never gone to see these specialists. Hospital course: Patient was started on home medications and as well as imdur 60 daily was added. Patient was also given PRN doses of hydralizine. Her HTN was controlled overnight and was 138/65 before being cleared for discharge by Dr. Gardner. We discussed a prednisone taper for itching on her back, however no rash was seen. Patient was discharged with the following instructions: Please continue all your home medications in addition to the following: Imdur 60 mg by mouth daily Prednisone taper 10 mg 54: 5 tabs by mouth at once in the morning 5: 4 tabs by mouth at once in the morning 56: 3 tabs by mouth at once in the morning 57: 2 tabs by mouth at once in the morning 58: 1 tab by mouth at once in the morning It is very important for you to take your medications in order to keep your blood pressure under control. Please follow up in the [facility] by the end of next week for further coordination of your care. If your experience new or worsening symptoms, please return to the nearest ER. Please note that this is a summary of events. For more details, please see complete medical record. Discharge Exam - Head Exam Head Exam: ATRAUMATIC, NORMAL INSPECTION - Eye Exam Eye Exam: EOMI, Normal appearance, PERRL Pupil Exam: NORMAL ACCOMODATION, PERRL - ENT Exam ENT Exam: Mucous Membranes Moist - Neck Exam Neck exam: Normal Inspection - Respiratory Exam Respiratory Exam: Clear to PA & Lateral, NORMAL BREATHING PATTERN, UNREMARKABLE - Cardiovascular Exam Cardiovascular Exam: RRR, +S1, +S2 - GI/Abdominal Exam GI & Abdominal Exam: Normal Bowel Sounds, Unremarkable - Neurological Exam Neurological exam: Alert, Normal Gait, Oriented x3 - Psychiatric Exam Psychiatric exam: Normal Affect, Normal Mood - Skin Skin Exam: Dry, Intact, Normal Color, Warm Discharge Plan - Discharge Medications Prescriptions: amLODIPine [Norvasc] 5 mg PO DAILY #30 tab Aspirin [Ecotrin] 81 mg PO DAILY #30 tabec Atorvastatin [Lipitor] 20 mg PO HS #30 tab Carvedilol [Coreg] 25 mg PO BID #60 tab Furosemide [Lasix] 40 mg PO DAILY #30 tab hydrALAZINE [Apresoline] 100 mg PO Q8H #90 tab Isosorbide Mononitrate [Imdur] 60 mg PO DAILY #30 tab - Follow Up Plan Condition: STABLE Disposition: HOME/ ROUTINE Instructions: High Blood Pressure in Adults, High Blood Pressure Emergencies Additional Instructions: Please continue all your home medications in addition to the following: Imdur 60 mg by mouth daily Prednisone taper 10 mg 5/4: 5 tabs by mouth at once in the morning 5/5: 4 tabs by mouth at once in the morning 5/6: 3 tabs by mouth at once in the morning 5/7: 2 tabs by mouth at once in the morning 5/8: 1 tab by mouth at once in the morning It is very important for you to take your medications in order to keep your blood pressure under control. Please follow up in the [facility] by the end of next week for further coordination of your care. If your experience new or worsening symptoms, please return to the nearest ER. Referrals: [facility] at [facility] [Outside] <Gardner,Peter H - Last Filed: 01/06/18 07:47> Provider - Provider Date of Admission: 01/04/18 13:43 Attending physician: Claudio Gardner DO Hospital Course - Lab Results Lab Results: Most Recent Lab Values WBC 7.0 K/uL (4.8-10.8) 01/05/18 11:16 RBC 3.64 Mil/uL (3.80-5.20) L 01/05/18 11:16 Hgb 10.2 g/dL (11.0-16.0) L 01/05/18 11:16 Hct 29.8 % (34.0-47.0) L 01/05/18 11:16 MCV 82.0 fL (81.0-99.0) 01/05/18 11:16 MCH 28.1 pg (27.0-31.0) 01/05/18 11:16 MCHC 34.2 g/dL (33.0-37.0) 01/05/18 11:16 RDW 15.3 % (11.5-14.5) H 01/05/18 11:16 Plt Count 147 K/uL (130-400) 01/05/18 11:16 MPV 8.8 fL (7.2-11.7) 01/05/18 11:16 Neut % (Auto) 81.1 % (50.0-75.0) H 01/05/18 11:16 Lymph % (Auto) 11.0 % (20.0-40.0) L 01/05/18 11:16 [place] % (Auto) 7.6 % (0.0-10.0) 01/05/18 11:16 Eos % (Auto) 0.0 % (0.0-4.0) 01/05/18 11:16 Baso % (Auto) 0.3 % (0.0-2.0) 01/05/18 11:16 Neut # (Auto) 5.6 K/uL (1.8-7.0) 01/05/18 11:16 Lymph # (Auto) 0.8 K/uL (1.0-4.3) L 01/05/18 11:16 [place] # (Auto) 0.5 K/uL (0.0-0.8) 01/05/18 11:16 Eos # (Auto) 0.0 K/uL (0.0-0.7) 01/05/18 11:16 Baso # (Auto) 0.0 K/uL (0.0-0.2) 01/05/18 11:16 PT 11.3 SECONDS (9.7-12.2) 01/04/18 12:33 INR 1.0 01/04/18 12:33 APTT 37 SECONDS (21-34) H 01/04/18 12:33 Sodium 137 mmol/L (132-148) 01/05/18 11:16 Potassium 4.5 mmol/L (3.6-5.2) 01/05/18 11:16 Chloride 105 mmol/L (98-107) 01/05/18 11:16 Carbon Dioxide 17 mmol/L (22-30) L 01/05/18 11:16 Anion Gap 20 (10-20) 01/05/18 11:16 BUN 41 mg/dL (7-17) H 01/05/18 11:16 Creatinine 1.6 mg/dL (0.7-1.2) H 01/05/18 11:16 Est GFR ( Amer) 38 01/05/18 11:16 Est GFR (Non-Af Amer) 31 01/05/18 11:16 POC Glucose (mg/dL) 252 mg/dL (65-110) H 01/05/18 11:32 Random Glucose 274 mg/dL (65-105) H 01/05/18 11:16 Calcium 8.6 mg/dl (8.6-10.4) 01/05/18 11:16 Phosphorus 3.7 mg/dL (2.5-4.5) 01/05/18 11:16 Magnesium 2.1 mg/dL (1.6-2.3) 01/05/18 11:16 Total Bilirubin 0.4 mg/dL (0.2-1.3) 01/05/18 11:16 AST 33 U/L (14-36) 01/05/18 11:16 ALT 25 U/L (9-52) 01/05/18 11:16 Alkaline Phosphatase 89 U/L (38-126) 01/05/18 11:16 Total Creatine Kinase 40 U/L (30-135) 01/05/18 01:17 CK-MB (Mass) 0.79 ng/mL (0.0-3.38) 01/05/18 01:17 Troponin I < 0.0120 ng/mL (0.00-0.120) 01/05/18 01:17 NT-Pro-B Natriuret Pep 2620 pg/mL (0-900) H 01/04/18 12:33 Total Protein 6.9 g/dL (6.3-8.3) 01/05/18 11:16 Albumin 3.8 g/dL (3.5-5.0) 01/05/18 11:16 Globulin 3.1 gm/dL (2.2-3.9) 01/05/18 11:16 Albumin/Globulin Ratio 1.2 (1.0-2.1) 01/05/18 11:16 Triglycerides 218 mg/dL (0-149) H 01/04/18 12:33 Cholesterol 198 mg/dL (0-199) 01/04/18 12:33 LDL Cholesterol Direct 98 mg/dL (0-129) 01/04/18 12:33 HDL Cholesterol 49 mg/dL (30-70) 01/04/18 12:33 Urine Color Yellow (YELLOW) 01/04/18 12:48 Urine Clarity Clear (Clear) 01/04/18 12:48 Urine pH 6.0 (5.0-8.0) 01/04/18 12:48 Ur Specific [place] 1.010 (1.003-1.030) 01/04/18 12:48 Urine Protein 2+ mg/dL (NEGATIVE) H 01/04/18 12:48 Urine Glucose (UA) Normal mg/dL (Normal) 01/04/18 12:48 Urine Ketones Negative mg/dL (NEGATIVE) 01/04/18 12:48 Urine Blood Negative (NEGATIVE) 01/04/18 12:48 Urine Nitrate Negative (NEGATIVE) 01/04/18 12:48 Urine Bilirubin Negative (NEGATIVE) 01/04/18 12:48 Urine Urobilinogen Normal mg/dL (0.2-1.0) 01/04/18 12:48 Ur Leukocyte Esterase Neg Farhan/uL (Negative) 01/04/18 12:48 Urine WBC (Auto) 1 /hpf (0-5) 01/04/18 12:48 Urine RBC (Auto) 1 /hpf (0-3) 01/04/18 12:48 Ur Squamous Epith Cells 4 /hpf (0-5) 01/04/18 12:48 Attending/Attestation - Attestation I have personally seen and examined this patient.: Yes I have fully participated in the care of the patient.: Yes I have reviewed all pertinent clinical information, including history, physical exam and plan: Yes Notes (Text): 01/06/18 07:45 Medical attending: Patient was seen and examined by me. Agree with the above note by the resident. We saw the patient together The patient was not in any acute distress. The troponins were negative Also the BP was still high - however much improved from before. We suspect that she is not actually taking her blood pressure medications Hopefully she will follow up in the clinic thank you Claudio Gardner
--- NOTE | 2018-01-06 23:22 | CARD ---
APPROVED REPORT EKG Measurement Heart [id number] <Conclusion> Normal sinus rhythm Left axis deviation Nonspecific ST abnormality [place] ECG
--- NOTE | 2018-01-09 13:11 | CARD ---
APPROVED REPORT EKG Measurement Heart [id number] <Conclusion> Sinus rhythm with occasional premature ventricular complexes Left axis deviation Poor R wave progression Abnormal ECG
== END 2018-01-05 15:21 | disposition home or self-care (01) ==
LOC: C.ER 11:43 → C.9E 13:43 → C.5S 14:34
PROVIDERS: ADMIT Hospitalist; ATTEND Hospitalist
DX: I16.0 Hypertensive urgency (principal); M94.0 Chondrocostal junction syndrome [Tietze]; I50.30 Unspecified diastolic (congestive) heart failure; E11.9 Type 2 diabetes mellitus without complications; E78.00 Pure hypercholesterolemia, unspecified; I11.0 Hypertensive heart disease with heart failure; K59.00 Constipation, unspecified; Z91.14 Patient's other noncompliance with medication regimen; D64.9 Anemia, unspecified
CPT/HCPCS: 36415; 71046; 80053; 80061; 81001; 82948; 83735; 83880; 84100; 84484; 85025; 85610; 85730; 93005; 96372; 96374; 96375; 99285; G0378; J1650; J1940; J2930

== ENCOUNTER 2018-05-09 17:32 | Inpatient (IN) | payer OTHER ==
[2018-05-09 17:32] VITALS: BMI 31.0
[2018-05-09] MEDS ORDERED: Aspirin 325 mg EC Tablets PO STA (18:00)
--- NOTE | 2018-05-09 18:00 | C.PDOC ---
History Of Present Illness 82 y/o female with history of DM and HTN brought to ED by EMS with c/o mid- sternal chest pain since 3pm today associated with sob. Patient denies cough, fever, chills, nausea, vomiting, abdominal pain or any other complaints at this time. Time Seen by Provider: 05/09/18 17:41 Chief Complaint (Nursing): Chest Pain History Per: Patient History/Exam Limitations: no limitations Onset/Duration Of Symptoms: Days Current Symptoms Are (Timing): Still Present Past Medical History Reviewed: Historical Data, Nursing Documentation, Vital Signs Vital Signs: Last Vital Signs Temp 98.9 F 05/09/18 17:50 Pulse 88 05/09/18 17:50 Resp 20 05/09/18 17:50 BP 166/74 H 05/09/18 17:50 Pulse Ox 97 05/09/18 18:56 - Medical History PMH: Anemia, Diabetes, HTN, Hypercholesterolemia, Hyperlipidemia Surgical History: No Surg Hx - [facility] Procedures FLUOROSCOPY OF LEFT HEART USING LOW OSMOLAR CONTRAST (07/17/17) FLUOROSCOPY OF MULT COR ART USING L OSM CONTRAST (07/17/17) MEASURE OF CARDIAC SAMPL & PRESSURE, L HEART, PERC APPROACH (07/17/17) Family History: States: No Known Family Hx - Social History Hx Tobacco Use: No Hx Alcohol Use: No Hx Substance Use: No - Immunization History Hx Tetanus Toxoid Vaccination: No Hx Influenza Vaccination: No Hx Pneumococcal Vaccination: No Review Of Systems Except As Marked, All Systems Reviewed And Found Negative. Cardiovascular: Positive for: Chest Pain Respiratory: Positive for: Shortness of Breath Physical Exam - Physical Exam Appears: Non-toxic, No Acute Distress Skin: Warm, Dry, No Rash Head: Atraumatic, Normacephalic Eye(s): bilateral: Normal Inspection Oral Mucosa: Moist Neck: Supple Cardiovascular: Murmur (2/6 systolic injection) Respiratory: Normal Breath Sounds, No Rales, No Rhonchi, No Wheezing Gastrointestinal/Abdominal: Soft, No Tenderness, No Guarding, No Rebound Extremity: Normal ROM, No Pedal Edema, Capillary Refill (<2 seconds) Neurological/Psych: Oriented x3, Normal Speech, Normal Cognition, Normal Motor, Normal Sensation ED Course And Treatment - Laboratory Results Result Diagrams: 05/09/18 17:42 05/09/18 18:03 O2 Sat by Pulse Oximetry: 97 (RA) Pulse Ox Interpretation: Normal Medical Decision Making Medical Decision Making: Assessment: Chest pain ekg - nsr at rate of 93 bpm with lae, lad, prolonged qt, no st or twave abn. Disposition - Disposition Disposition Time: 18:56 Condition: STABLE Forms: [facility] (Citizen [place]) - POA Core Measure Indicators: Chest Pain - Clinical Impression Clinical Impression: Chest pain - Scribe Statement The provider has reviewed the documentation as recorded by the Ronnellibjoao Bahena All medical record entries made by the Ronnellibe were at my direction and personally dictated by me. I have reviewed the chart and agree that the record accurately reflects my personal performance of the history, physical exam, medical decision making, and the department course for this patient. I have also personally directed, reviewed, and agree with the discharge instructions and disposition. Physician Patient Turnover Patient Signed Over To: Azalea Jaimes Handoff Comments: pending ct chest, reevaluation and disposition
[2018-05-09 18:08] LABS: BASO % 0.7 % (0.0-2.0); EOS # 0.2 K/uL (0.0-0.7); EOS % 3.2 % (0.0-4.0); HEMOGLOBIN 8.4 g/dL (11.0-16.0); LYMPH # 1.1 K/uL (1.0-4.3); LYMPH % 19.5 % (20.0-40.0); MEAN CELL VOLUME 81.1 fL (81.0-99.0); MEAN CORPUSCULAR HEMOGLOBIN 27.1 pg (27.0-31.0); MEAN CORPUSCULAR HGB CONC 33.4 g/dL (33.0-37.0); MEAN PLATELET VOLUME 7.5 fL (7.2-11.7); MONO # 0.9 K/uL (0.0-0.8); MONO % 15.3 % (0.0-10.0); NEUT # 3.6 K/uL (1.8-7.0); NEUT % 61.3 % (50.0-75.0); RBC 3.09 Mil/uL (3.80-5.20); RED CELL DISTRIBUTION WIDTH 14.4 % (11.5-14.5); WHITE BLOOD COUNT 5.8 K/uL (4.8-10.8)
[2018-05-09 18:17] LABS: INR 1.1; PROTHROMBIN TIME 12.4 SECONDS (9.7-12.2)
[2018-05-09 18:20] LABS: SQUAMOUS EPITHIAL 1 /hpf (0-5); URINE BACTERIA FEW (<OCC); URINE BILIRUBIN NEGATIVE (NEGATIVE); URINE BLOOD 1+ (NEGATIVE); URINE CLARITY Hazy (Clear); URINE COLOR Straw (YELLOW); URINE GLUCOSE (UA) NORMAL (Normal); URINE LEUKOCYTE ESTERASE 3+ Leu/uL (Negative); URINE PROTEIN NEGATIVE (NEGATIVE); URINE UROBILINOGEN NORMAL mg/dL (0.2-1.0); WBC CLUMPS FEW /hpf
[2018-05-09 18:23] LABS: ALB/GLOB RATIO 1.3 (1.0-2.1); ALBUMIN 3.8 g/dL (3.5-5.0); ALT/SGPT 27 U/L (9-52); AST/SGOT 17 U/L (14-36); BLOOD UREA NITROGEN 47 mg/dL (7-17); CALCIUM 8.3 mg/dl (8.6-10.4); GFR NON-AFRICAN AMERICAN 43
--- NOTE | 2018-05-09 18:34 | RAD ---
Date of service: 05/09/2018 PROCEDURE: CHEST RADIOGRAPH, 1 VIEW HISTORY: SOB COMPARISON: Chest radiographs 01/04/2018. FINDINGS: LUNGS: No infiltrate identified bilaterally. Right perihilar density may reflect overlap of vessels. A nodule is not excluded and follow-up chest is recommended here. None is seen at the left hemithorax. PLEURA: No pneumothorax or pleural fluid seen. CARDIOVASCULAR: Normal. OSSEOUS STRUCTURES: No significant abnormalities. VISUALIZED UPPER ABDOMEN: Normal. OTHER FINDINGS: None. IMPRESSION: Questionable interval nodular density right perihilar region versus vascular overlap. Follow-up chest CT with contrast is advised for better characterization. No airspace disease, pleural effusion or pneumothorax bilaterally.
[2018-05-09 18:35] LABS: B-TYPE NATRIURETIC PEPTIDE 3290 pg/mL (0-900)
[2018-05-09] MEDS ORDERED: Iohexol 350mg/ml 100 ML ONE (19:16)
[2018-05-09] MEDS ORDERED: Piperacillin/Tazobact 3.375 gm 100 ML IVPB STA (19:20)
[2018-05-09] MEDS ORDERED: Piperacillin/Tazobact 3.375 gm 100 ML IVPB ONE (19:58)
--- NOTE | 2018-05-09 23:17 | CP.PCM.HP ---
<Chucky Crockett - Last Filed: 05/10/18 06:10> History of Present Illness - History of Present Illness History of Present Illness: PGY2 Medicine H+P for Dr. Najera Patient is a 82 year old female with a past medical history of diastolic CHF, HTN, DM, hyperlipidemia and anemia presenting to the emergency department with a complaint of non-radiating, left sided chest pain since 2 pm this afternoon with associated SOB. The pain is not alleviated by rest. She is unable to describe the chest pain. Since being in the emergency department, she reports her chest pain has moved and is currently throughout her entire body. She also has lower abdominal pain that she has been experiencing for 15 days. The lower abdominal pain is associated with burning with urination. She denies hematuria or increased frequency. Patient denies fever, chills, nausea, vomiting , diarrhea, constipation, headaches, numbness or tingling. PMD - Dr. Gu PMH - HTN, DM, CHF (diastolic), hyperlipidemia and anemia PSH - Cardiac cath 07/21/17 (normal coronies) FamilyHx - unremarkable Social - Denies tobacco use, alcohol use or drug use Allergies - Metronidazole - rash Meds - Norvasc 5mg once a day: 1PM Aspirin 81mg once a day: 7AM Coreg 25mg twice a day: 10AM and 10PM Lasix 40mg once a day: 7AM Gabapentin 100mg three times per day: 7AM, 1PM, 7PM Hydralazine 100mg three time per day: 7AM, 1PM, 7PM Atorvastatin 20mg once a day: 7PM Metformin 1,000mg twice a day: breakfast and dinner Present on Admission - Present on Admission Any Indicators Present on Admission: No Review of Systems - Review of Systems All systems: reviewed and no additional remarkable complaints except - Constitutional Constitutional: As Per HPI - EENT Eyes: As Per HPI Nose/Mouth/Throat: As Per HPI - Cardiovascular Cardiovascular: As Per HPI - Respiratory Respiratory: As Per HPI - Gastrointestinal Gastrointestinal: As Per HPI - Genitourinary Genitourinary: As Per HPI - Musculoskeletal Musculoskeletal: As Per HPI - Integumentary Integumentary: As Per HPI - Neurological Neurological: As Per HPI - Psychiatric Psychiatric: As Per HPI - Endocrine Endocrine: As Per HPI - Hematologic/Lymphatic Hematologic: As Per HPI Past Patient History - Infectious Disease Hx of Infectious Diseases: None - Past Medical History & Family History Past Medical History?: Yes - Past Social History Smoking Status: Never Smoked - CARDIAC Hx Hypercholesterolemia: Yes Hx Hypertension: Yes - PULMONARY Hx Respiratory Disorders: No - NEUROLOGICAL Hx Neurological Disorder: No - HEENT Hx HEENT Problems: No - RENAL Hx Chronic Kidney Disease: No - ENDOCRINE/METABOLIC Hx Endocrine Disorders: Yes Hx Diabetes Mellitus Type 2: Yes - HEMATOLOGICAL/ONCOLOGICAL Hx Anemia: Yes - INTEGUMENTARY Hx Dermatological Problems: No - MUSCULOSKELETAL/RHEUMATOLOGICAL Hx Musculoskeletal Disorders: No Hx Falls: No - GASTROINTESTINAL Hx Gastrointestinal Disorders: No - GENITOURINARY/GYNECOLOGICAL Hx Genitourinary Disorders: No - PSYCHIATRIC Hx Substance Use: No - SURGICAL HISTORY Hx Surgeries: No - ANESTHESIA Hx Anesthesia: No Hx Anesthesia Reactions: No Meds Allergies/Adverse Reactions: Allergies Allergy/AdvReac Type Severity Reaction Status Date / Time metronidazole [From Flagyl] Allergy RASH Verified 01/04/18 10:15 Physical Exam - Constitutional Appears: Non-toxic, No Acute Distress - Head Exam Head Exam: ATRAUMATIC, NORMOCEPHALIC - Eye Exam Eye Exam: Normal appearance - ENT Exam ENT Exam: Mucous Membranes Moist - Neck Exam Neck exam: Negative for: Lymphadenopathy - Respiratory Exam Respiratory Exam: Clear to Auscultation Bilateral, NORMAL BREATHING PATTERN. absent: Accessory Muscle Use, Chest Wall Tenderness, Rales, Rhonchi, Wheezes, Respiratory Distress - Cardiovascular Exam Cardiovascular Exam: REGULAR RHYTHM, +S1 - GI/Abdominal Exam GI & Abdominal Exam: Guarding, Soft, Tenderness (lower abdomen, most severe suprapubic/LLQ). absent: Distended, Rigid - Extremities Exam Extremities exam: Positive for: normal inspection, pedal pulses present. Negative for: calf tenderness, pedal edema - Neurological Exam Neurological exam: Alert, Oriented x3 - Psychiatric Exam Psychiatric exam: Normal Affect, Normal Mood - Skin Skin Exam: Dry, Warm Results - Vital Signs Recent Vital Signs: Last Vital Signs Temp 98.3 F 05/09/18 22:20 Pulse 88 05/09/18 22:20 Resp 20 05/09/18 22:20 BP 182/72 H 05/09/18 22:20 Pulse Ox 97 05/09/18 22:20 - Labs Result Diagrams: 05/09/18 17:42 05/09/18 18:03 Labs: Laboratory Results - last 24 hr 05/09/18 05/09/18 05/09/18 17:42 18:03 18:10 WBC 5.8 RBC 3.09 L Hgb 8.4 L Hct 25.0 L MCV 81.1 MCH 27.1 MCHC 33.4 RDW 14.4 Plt Count 146 MPV 7.5 Neut % (Auto) 61.3 Lymph % (Auto) 19.5 L [place] % (Auto) 15.3 H Eos % (Auto) 3.2 Baso % (Auto) 0.7 Neut # (Auto) 3.6 Lymph # (Auto) 1.1 [place] # (Auto) 0.9 H Eos # (Auto) 0.2 Baso # (Auto) 0.0 PT 12.4 H INR 1.1 APTT 29 Sodium 142 Potassium 3.7 Chloride 110 H Carbon Dioxide 18 L Anion Gap 17 BUN 47 H Creatinine 1.2 Est GFR ( Amer) 52 Est GFR (Non-Af Amer) 43 Random Glucose 106 H Calcium 8.3 L Total Bilirubin 0.4 AST 17 ALT 27 Alkaline Phosphatase 82 Troponin I < 0.0120 NT-Pro-B Natriuret Pep 3290 H Total Protein 6.7 Albumin 3.8 Globulin 2.9 Albumin/Globulin Ratio 1.3 Urine Color Urine Clarity Urine pH Ur Specific Hill Urine Protein Urine Glucose (UA) Urine Ketones Urine Blood Urine Nitrate Urine Bilirubin Urine Urobilinogen Ur Leukocyte Esterase Urine WBC (Auto) Urine RBC (Auto) Urine WBC Clumps (Auto) Ur Squamous Epith Cells Urine Bacteria 05/09/18 18:11 WBC RBC Hgb Hct MCV MCH MCHC RDW Plt Count MPV Neut % (Auto) Lymph % (Auto) [place] % (Auto) Eos % (Auto) Baso % (Auto) Neut # (Auto) Lymph # (Auto) [place] # (Auto) Eos # (Auto) Baso # (Auto) PT INR APTT Sodium Potassium Chloride Carbon Dioxide Anion Gap BUN Creatinine Est GFR ( Amer) Est GFR (Non-Af Amer) Random Glucose Calcium Total Bilirubin AST ALT Alkaline Phosphatase Troponin I NT-Pro-B Natriuret Pep Total Protein Albumin Globulin Albumin/Globulin Ratio Urine Color Straw Urine Clarity Hazy Urine pH 5.0 Ur Specific Hill 1.006 Urine Protein Negative Urine Glucose (UA) Normal Urine Ketones Negative Urine Blood 1+ H Urine Nitrate Negative Urine Bilirubin Negative Urine Urobilinogen Normal Ur Leukocyte Esterase 3+ H Urine WBC (Auto) 100 H Urine RBC (Auto) 7 H Urine WBC Clumps (Auto) Few H Ur Squamous Epith Cells 1 Urine Bacteria Few H Assessment & Plan - Assessment and Plan (Free Text) Plan: Chest pain Due to recent clean cardic cath, low suspicion for ischemic etiology. No cardiac consult indicated at this time. CXR 05/09/18: * Questionable interval nodular density right perihilar region versus vascular overlap. Follow-up chest CT with contrast is advised for better characterization. No airspace disease, pleural effusion or pneumothorax bilaterally. Chest CT w/IV contrast 05/09/18: * No acute cardiopulmonary process. No suspicious pulmonary nodules or masses. Stress Test (07/20/17) - Showed defect possibly representing ischemia Cardiac Cath (07/21/17) - Angiographically normal coronaries and normal LV systolic function Echo (07/17/17): Grade II diastolic dysfunction; EF 55% EUGENIA negative x 2, will trend 3rd Lower abdominal pain Abd/pelvis CT w/PO contrast only: pending UA (clean catch): blood 1+, leukocyte glory 3+, WBC/RBC high, epith cells 1 UA (straight cath): unremarkable except WBC 6, no leuk Urine culture (clean catch) pending Urine culture (straight cath) pending ED course: received one dose of Zosyn. Diastolic CHF (Type II) Controlled BNP 3290 daily weights/monitor intake and output Continue Home Medications: * Aspirin 81mg PO daily * Coreg 25mg PO BID * Lasix 40mg PO daily * Crestor 10mg once at night Hypertension Continue Home Medications: * Norvasc 5mg PO daily * Coreg 25mg PO BID * Hydralazine 100mg PO q8h * Isosorbide Mononitrate 60mg PO daily Chronic Leg Pain Continue home medication * Gabapentin 100mg PO TID Diabetes ISS mod Accuchecks Will hold metformin while in the hospital Hypoglycemia protocol Hx anemia Stable, likely due to chronic disease and low iron was seen by heme/onc on last visit Prophylactic measure Lovenox 40mg SC daily Pepcid 20mg PO daily Consistent carb, heart healthy, 2gm sodium diet Case discussed with Dr. Dania Crockett PGY2 <Estevan Najera P - Last Filed: 05/10/18 07:29> Results - Vital Signs Recent Vital Signs: Last Vital Signs Temp 99.2 F 05/10/18 06:32 Pulse 77 05/10/18 06:32 Resp 20 05/10/18 06:32 BP 177/67 H 05/10/18 06:32 Pulse Ox 96 05/10/18 06:32 - Labs Result Diagrams: 05/09/18 17:42 05/09/18 18:03 Labs: Laboratory Results - last 24 hr 05/09/18 05/09/18 05/09/18 17:42 18:03 18:10 WBC 5.8 RBC 3.09 L Hgb 8.4 L Hct 25.0 L MCV 81.1 MCH 27.1 MCHC 33.4 RDW 14.4 Plt Count 146 MPV 7.5 Neut % (Auto) 61.3 Lymph % (Auto) 19.5 L [place] % (Auto) 15.3 H Eos % (Auto) 3.2 Baso % (Auto) 0.7 Neut # (Auto) 3.6 Lymph # (Auto) 1.1 [place] # (Auto) 0.9 H Eos # (Auto) 0.2 Baso # (Auto) 0.0 PT 12.4 H INR 1.1 APTT 29 Sodium 142 Potassium 3.7 Chloride 110 H Carbon Dioxide 18 L Anion Gap 17 BUN 47 H Creatinine 1.2 Est GFR ( Amer) 52 Est GFR (Non-Af Amer) 43 Random Glucose 106 H Calcium 8.3 L Total Bilirubin 0.4 AST 17 ALT 27 Alkaline Phosphatase 82 Total Creatine Kinase CK-MB (Mass) Troponin I < 0.0120 NT-Pro-B Natriuret Pep 3290 H Total Protein 6.7 Albumin 3.8 Globulin 2.9 Albumin/Globulin Ratio 1.3 Urine Color Urine Clarity Urine pH Ur Specific Hill Urine Protein Urine Glucose (UA) Urine Ketones Urine Blood Urine Nitrate Urine Bilirubin Urine Urobilinogen Ur Leukocyte Esterase Urine WBC (Auto) Urine RBC (Auto) Urine WBC Clumps (Auto) Ur Squamous Epith Cells Urine Bacteria 05/09/18 05/10/18 05/10/18 18:11 00:45 00:45 WBC RBC Hgb Hct MCV MCH MCHC RDW Plt Count MPV Neut % (Auto) Lymph % (Auto) [place] % (Auto) Eos % (Auto) Baso % (Auto) Neut # (Auto) Lymph # (Auto) [place] # (Auto) Eos # (Auto) Baso # (Auto) PT INR APTT Sodium Potassium Chloride Carbon Dioxide Anion Gap BUN Creatinine Est GFR ( Amer) Est GFR (Non-Af Amer) Random Glucose Calcium Total Bilirubin AST ALT Alkaline Phosphatase Total Creatine Kinase 38 CK-MB (Mass) < 0.22 Troponin I < 0.0120 NT-Pro-B Natriuret Pep Total Protein Albumin Globulin Albumin/Globulin Ratio Urine Color Straw Straw Urine Clarity Hazy Clear Urine pH 5.0 5.0 Ur Specific [place] 1.006 1.019 Urine Protein Negative Negative Urine Glucose (UA) Normal Normal Urine Ketones Negative Negative Urine Blood 1+ H Negative Urine Nitrate Negative Negative Urine Bilirubin Negative Negative Urine Urobilinogen Normal Normal Ur Leukocyte Esterase 3+ H Neg Urine WBC (Auto) 100 H 6 H Urine RBC (Auto) 7 H 1 Urine WBC Clumps (Auto) Few H Ur Squamous Epith Cells 1 < 1 Urine Bacteria Few H Attending/Attestation - Attestation I have personally seen and examined this patient.: Yes I have fully participated in the care of the patient.: Yes I have reviewed all pertinent clinical information: Yes Notes (Text): 05/10/18 07:24 Multitude of symptoms of chest pain, sob, epigastric pain, whole body ache, lab work + of worsening anemia hemoglobin 8.5, prior iron deficiency noticed, catheterized sample of urine doesn't show infection, h/o htn, chronic uncontrolled dm, abd/pelvis ct negative for any acute inflammation done due to c /o left lower quadrant pain/tenderness observed during our exam but not with prior physician exams. From above only positive in clinical finding is slight worsening in anemia without signs of acute loss. Patient had negative cath prior , she is on ASA will hold, stool for occult blood will be done and gi will be consulted. See orders for detail.
[2018-05-09] MEDS ORDERED: Dextrose 50% SYRINGE Inj (50 ml) IV PRN (23:41)
[2018-05-09] MEDS ORDERED: Glucagon Recombinant 1 mg Inj IM PRN (23:41)
[2018-05-10 01:31] LABS: CK-MB < 0.22 ng/mL (0.0-3.38); SQUAMOUS EPITHIAL < 1 /hpf (0-5); URINE BILIRUBIN NEGATIVE (NEGATIVE); URINE BLOOD NEGATIVE (NEGATIVE); URINE CLARITY Clear (Clear); URINE COLOR Straw (YELLOW); URINE GLUCOSE (UA) NORMAL (Normal); URINE LEUKOCYTE ESTERASE NEG Leu/uL (Negative); URINE PROTEIN NEGATIVE (NEGATIVE); URINE UROBILINOGEN NORMAL mg/dL (0.2-1.0)
[2018-05-10] MEDS ORDERED: Iohexol 240 (50 ml) PO ONE (01:45)
[2018-05-10 07:30] LABS: BASO % 0.8 % (0.0-2.0); EOS # 0.2 K/uL (0.0-0.7); EOS % 3.5 % (0.0-4.0); HEMOGLOBIN 8.5 g/dL (11.0-16.0); LYMPH # 1.1 K/uL (1.0-4.3); LYMPH % 19.5 % (20.0-40.0); MEAN CELL VOLUME 80.5 fL (81.0-99.0); MEAN CORPUSCULAR HEMOGLOBIN 27.4 pg (27.0-31.0); MEAN PLATELET VOLUME 7.9 fL (7.2-11.7); MONO # 0.8 K/uL (0.0-0.8); NEUT # 3.5 K/uL (1.8-7.0); NEUT % 61.2 % (50.0-75.0); NRBC % 0.1 % (0.0-2.0); RBC 3.11 Mil/uL (3.80-5.20); RED CELL DISTRIBUTION WIDTH 14.4 % (11.5-14.5); WHITE BLOOD COUNT 5.6 K/uL (4.8-10.8)
[2018-05-10 07:57] LABS: ALB/GLOB RATIO 1.3 (1.0-2.1); ALBUMIN 3.8 g/dL (3.5-5.0); CALCIUM 8.5 mg/dl (8.6-10.4)
[2018-05-10 08:01] LABS: CK-MB < 0.22 ng/mL (0.0-3.38)
[2018-05-10] MEDS: (Novolin R) Insulin Human Regular 100 units/ml vial SC SCH ×4 (08:06→22:04)
[2018-05-10 08:35] LABS: IRON 25 ug/dL (37-170)
[2018-05-10 08:52] LABS: % IRON SATURATION 7 (20-55); TOTAL IRON BINDING CAPACITY 339 ug/dL (250-450)
[2018-05-10] MEDS ORDERED: Enoxaparin 40 mg Syringe SC SCH (10:00)
[2018-05-10] MEDS ORDERED: Potassium Chloride 20 mEq ER Tab PO ONE ×2 (11:00→13:15)
--- NOTE | 2018-05-10 11:33 | CT ---
Date of service: 05/10/2018 PROCEDURE: CT Abdomen and Pelvis with contrast HISTORY: lower abdomen pain COMPARISON: Abdomen pelvis CT without contrast 07/26/2017. TECHNIQUE: Helical CT of the abdomen and pelvis was performed following oral contrast administration (Omnipaque 240). Intravenous contrast was not administered as per referring physician request. Contrast dose: None intravenously Radiation dose: Total exam DLP = 574.69 mGy-cm. This CT exam was performed using one or more of the following dose reduction techniques: Automated exposure control, adjustment of the mA and/or kV according to patient size, and/or use of iterative reconstruction technique. FINDINGS: LOWER THORAX: Borderline cardiomegaly. No pleural or pericardial effusion identified. Prior bilateral pleural effusions have resolved as well as pericardial effusion. LIVER: UnremarkableCirrhotic liver reiterated, upper limits normal size. No gross focal mass appreciable in this unenhanced examination. Lack images contrast limits evaluation of the solid abdominal viscera predominantly. . No gross lesion or ductal dilatation. GALLBLADDER AND BILE DUCTS: Unremarkable. PANCREAS: Unremarkable. No gross lesion or ductal dilatation. SPLEEN: Unremarkable. ADRENALS: Unremarkable. No mass. KIDNEYS AND URETERS: No obstructive uropathy bilaterally. Excreted iodinated contrast material is identified within the bilateral renal collecting systems and intermittently throughout the ureters from oral contrast ingestion. VASCULATURE: Unremarkable. No aortic aneurysm. BOWEL: Proximal duodenal diverticulum reiterated. Scattered colonic diverticula less well appreciated currently. No obstruction. No gross mural thickening. APPENDIX: Normal appendix. PERITONEUM: Unremarkable. No free fluid. No free air. LYMPH NODES: Unremarkable. No enlarged lymph nodes. BLADDER: Unremarkable. REPRODUCTIVE: Fibroid uterine changes with chronic retention of apparent intrauterine device. BONES: No acute fracture. OTHER FINDINGS: None. IMPRESSION: 1. No acute abdominal or pelvic CT findings. 2. Cirrhotic liver reiterated. 3. Proximal duodenal diverticulum reiterated. 4. Apparent resolution of prior bilateral pleural effusions and pericardial effusion. Cardiomegaly stable.
--- NOTE | 2018-05-10 12:45 | CT ---
Date of service: 05/09/18 CT chest with IV contrast Indication: Abnormal chest x-ray, chest pain Technique: Contiguous axial images were obtained through the chest with intravenous contrast enhancement. Sagittal and coronal reconstructions were generated and reviewed. This CT exam was performed using 1 or more of the following dose reduction techniques: Automated exposure control, adjustment of the MAA and/or kV according to patient size, and/or use of iterative reconstruction technique. IV Contrast: 100 mL Omnipaque 350 Radiation dose (DLP): 357.45 MGy-cm. Comparison: Chest x-ray performed 05/09/18 Findings: Visualized portions of the inferior thyroid gland appear unremarkable. The mediastinal and hilar vascular structures appear within normal limits. Cardiomegaly. Atherosclerotic calcifications of the aorta. Sub cm mediastinal lymph nodes, nonspecific. No focal consolidation. No pleural effusion. No pneumothorax. No suspicious pulmonary nodules measuring greater than 5 mm. Degenerative changes of the spine. Kyphosis. Osseous demineralization. Impression: Cardiomegaly. Atherosclerotic calcifications of the aorta. Preliminary impression was provided by virtual radiologic.
--- NOTE | 2018-05-10 17:16 | CARD ---
APPROVED REPORT Date of service: 05/09/2018 EKG Measurement Heart [id number] <Conclusion> Normal sinus rhythm Possible Left atrial enlargement Left axis deviation Prolonged QT Abnormal ECG
--- NOTE | 2018-05-10 19:18 | CP.PCM.PN ---
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 Gardner Patient was seen and evaluated at bedside this morning. Patient has 8/10 pain in chest localized to her substernal region, and left lower quadrant abdominal pain. Patient was able to tolerate diet without issue. Patient endorses normal bowel movement without diarrhea and/or constipation. Patient otherwise denies nausea, vomiting, fever, shortness of breath, numbness and/or tingling in lower extremities. Objective - Vital Signs/Intake and Output Vital Signs (last 24 hours): Temp Pulse Resp BP Pulse Ox 98.1 F 77 20 144/65 97 05/10/18 15:00 05/10/18 15:00 05/10/18 15:00 05/10/18 17:32 05/10/18 15:00 Intake and Output: 05/10/18 05/11/18 18:59 06:59 Intake Total 220 Balance 220 - Medications Medications: Current Medications Acetaminophen (Tylenol 325mg Tab) 650 mg PO Q6 PRN PRN Reason: Pain, moderate (4-7) Amlodipine Besylate (Norvasc) 5 mg PO DAILY [facility] Last Admin: 05/10/18 10:04 Dose: 5 mg Aspirin (Aspirin Chewable) 81 mg PO DAILY [facility] Last Admin: 05/10/18 10:04 Dose: 81 mg Carvedilol (Coreg) 25 mg PO BID [facility] Last Admin: 05/10/18 17:32 Dose: 25 mg Dextrose (Dextrose 50% Inj) 0 ml IV STAT PRN; Protocol PRN Reason: Hypoglycemia Protocol Dextrose (Glutose 15) 0 gm PO ONCE PRN; Protocol PRN Reason: Hypoglycemia Protocol Docusate Sodium (Colace) 100 mg PO DAILY [facility] Enoxaparin Sodium (Lovenox) 40 mg SC DAILY [facility] Last Admin: 05/10/18 10:06 Dose: 40 mg Furosemide (Lasix) 40 mg PO DAILY [facility] Last Admin: 05/10/18 10:06 Dose: 40 mg Gabapentin (Neurontin) 100 mg PO TID [facility] Last Admin: 05/10/18 17:32 Dose: 100 mg Glucagon (Glucagen Diagnostic Kit) 0 mg IM STAT PRN; Protocol PRN Reason: Hypoglycemia Protocol Hydralazine HCl (Apresoline) 100 mg PO Q8H [facility] Last Admin: 05/10/18 16:45 Dose: 100 mg Dextrose (Dextrose 5% In Water 1000 Ml) 1,000 mls @ 0 mls/hr IV .Q0M PRN; Protocol; Per Protocol PRN Reason: Hypoglycemia Protocol Insulin Human Regular (Novolin R) 0 unit SC ACHS [facility] PRN Reason: Protocol Last Admin: 05/10/18 17:30 Dose: 3 units Isosorbide Mononitrate (Imdur) 60 mg PO DAILY [facility] Last Admin: 05/10/18 10:05 Dose: 60 mg Pantoprazole Sodium (Protonix Ec Tab) 40 mg PO ACB [facility] Polyethylene Glycol (Miralax) 17 gm PO DAILY [facility] Rosuvastatin Calcium (Crestor) 10 mg PO HS [facility] - Labs Labs: 05/10/18 07:18 05/10/18 07:18 PT 12.4 SECONDS (9.7-12.2) H 05/09/18 18:10 INR 1.1 05/09/18 18:10 APTT 29 SECONDS (21-34) 05/09/18 18:10 - Additional Findings Additional findings: - Constitutional Appears: Non-toxic, No Acute Distress - Head Exam Head Exam: ATRAUMATIC, NORMOCEPHALIC - Eye Exam Eye Exam: Normal appearance - ENT Exam ENT Exam: Mucous Membranes Moist - Neck Exam Neck exam: Negative for: Lymphadenopathy - Respiratory Exam Respiratory Exam: Clear to Auscultation Bilateral, NORMAL BREATHING PATTERN. absent: Accessory Muscle Use, Chest Wall Tenderness, Rales, Rhonchi, Wheezes, Respiratory Distress - Cardiovascular Exam Cardiovascular Exam: REGULAR RHYTHM, +S1 - GI/Abdominal Exam GI & Abdominal Exam: Soft, Tenderness (lower abdomen, most severe suprapubic/LLQ ). absent: Distended, Rigid - Extremities Exam Extremities exam: Positive for: normal inspection, pedal pulses present. Negative for: calf tenderness, pedal edema - Neurological Exam Neurological exam: Alert, Oriented x3 - Psychiatric Exam Psychiatric exam: Normal Affect, Normal Mood - Skin Skin Exam: Dry, Warm Assessment and Plan - Assessment and Plan (Free Text) Assessment: Chest pain - Due to recent clean cardic cath, low suspicion for ischemic etiology. No cardiac consult indicated at this time. - CXR 05/09/18: Questionable interval nodular density right perihilar region versus vascular overlap. Follow-up chest CT with contrast is advised for better characterization. No airspace disease, pleural effusion or pneumothorax bilaterally. - Chest CT w/IV contrast 05/09/18: No acute cardiopulmonary process. No suspicious pulmonary nodules or masses. - Stress Test (07/20/17) - Showed defect possibly representing ischemia - Cardiac Cath (07/21/17) - Angiographically normal coronaries and normal LV systolic function - Echo (07/17/17): Grade II diastolic dysfunction; EF 55% - EUGENIA negative x3 - CT chest with contrast per report: Cardiomegaly, atherosclerotic calcifications of aorta Lower abdominal pain - GI consulted (Dr. Tolbert), recommendations appreciated - Abd/pelvis CT w/PO contrast per report: No acute abdominal or pelvic CT findings. Cirrhotic liver reiterated. Proximal duodenal diverticulum reiterated. Apparent resolution of prior bilateral pleural effusions and pericardial effusion. Cardiomegaly stable. - UA (clean catch): blood 1+, leukocyte glory 3+, WBC/RBC high, epith cells 1 - UA (straight cath): unremarkable except WBC 6, no leuk - Urine culture: pending - ED course: received one dose of Zosyn. History of Diastolic CHF (Type II) - Controlled - BNP 3290 - Daily weights/monitor intake and output - Continue Home Medications: Aspirin 81mg PO daily Coreg 25mg PO BID Lasix 40mg PO daily Crestor 10mg once at night History of Hypertension - Continue Home Medications: Norvasc 5mg PO daily Coreg 25mg PO BID Hydralazine 100mg PO q8h Isosorbide Mononitrate 60mg PO daily - Monitor History of Chronic Leg Pain - Continue home medication Gabapentin 100mg PO TID - Start Tylenol 650mg Q6 PO for moderate pain Diabetes - ISS mod - Accuchecks - Continue to hold metformin while in the hospital - Hypoglycemia protocol Hx anemia - Stable, likely due to chronic disease and low iron - was seen by heme/onc on last visit Prophylactic measure - Lovenox 40mg SC daily - Pepcid 20mg PO daily - Consistent carb, heart healthy, 2gm sodium diet Patient seen and case discussed with Attending Physician, Dr. Kendra Longoria PGY1 <Gardner,Peter H - Last Filed: 05/11/18 07:31> Objective - Vital Signs/Intake and Output Vital Signs (last 24 hours): Temp Pulse Resp BP Pulse Ox 98.1 F 85 20 157/56 H 97 05/10/18 15:00 05/11/18 01:00 05/10/18 15:00 05/11/18 00:35 05/10/18 15:00 Intake and Output: 05/11/18 05/11/18 06:59 18:59 Intake Total 350 Balance 350 - Medications Medications: Current Medications Acetaminophen (Tylenol 325mg Tab) 650 mg PO Q6 PRN PRN Reason: Pain, moderate (4-7) Amlodipine Besylate (Norvasc) 5 mg PO DAILY [facility] Last Admin: 05/10/18 10:04 Dose: 5 mg Aspirin (Aspirin Chewable) 81 mg PO DAILY [facility] Last Admin: 05/10/18 10:04 Dose: 81 mg Carvedilol (Coreg) 25 mg PO BID [facility] Last Admin: 05/10/18 17:32 Dose: 25 mg Dextrose (Dextrose 50% Inj) 0 ml IV STAT PRN; Protocol PRN Reason: Hypoglycemia Protocol Dextrose (Glutose 15) 0 gm PO ONCE PRN; Protocol PRN Reason: Hypoglycemia Protocol Docusate Sodium (Colace) 100 mg PO DAILY [facility] Enoxaparin Sodium (Lovenox) 40 mg SC DAILY [facility] Last Admin: 05/10/18 10:06 Dose: 40 mg Furosemide (Lasix) 40 mg PO DAILY [facility] Last Admin: 05/10/18 10:06 Dose: 40 mg Gabapentin (Neurontin) 100 mg PO TID [facility] Last Admin: 05/10/18 17:32 Dose: 100 mg Glucagon (Glucagen Diagnostic Kit) 0 mg IM STAT PRN; Protocol PRN Reason: Hypoglycemia Protocol Hydralazine HCl (Apresoline) 100 mg PO Q8H [facility] Last Admin: 05/11/18 00:36 Dose: 100 mg Dextrose (Dextrose 5% In Water 1000 Ml) 1,000 mls @ 0 mls/hr IV .Q0M PRN; Protocol; Per Protocol PRN Reason: Hypoglycemia Protocol Insulin Human Regular (Novolin R) 0 unit SC ACHS [facility] PRN Reason: Protocol Last Admin: 05/10/18 22:04 Dose: Not Given Isosorbide Mononitrate (Imdur) 60 mg PO DAILY [facility] Last Admin: 05/10/18 10:05 Dose: 60 mg Pantoprazole Sodium (Protonix Ec Tab) 40 mg PO ACB [facility] Polyethylene Glycol (Miralax) 17 gm PO DAILY [facility] Rosuvastatin Calcium (Crestor) 10 mg PO HS [facility] Last Admin: 05/10/18 22:50 Dose: Not Given - Labs Labs: 05/10/18 07:18 05/10/18 07:18 PT 12.4 SECONDS (9.7-12.2) H 05/09/18 18:10 INR 1.1 05/09/18 18:10 APTT 29 SECONDS (21-34) 05/09/18 18:10 Attending/Attestation - Attestation I have personally seen and examined this patient.: Yes I have fully participated in the care of the patient.: Yes I have reviewed all pertinent clinical information, including history, physical exam and plan: Yes Notes (Text): Medical attending: Patient was seen and examined by me, Agree with the above note by the resident The patient was not in any acute distress. Review of lab work shows that UA was normal and also the CBC was normal - besides her anemia. The Hgb was unchanged from previous. The patient had underwent CT of the chest as well as abdomen and pelvis and these were stable When we saw her we asked for a GI opnion as well and later that saw and did not feel that there were any acute process. They did suggest an outpatient elective EGD/colonscopy in the future The patient has had negative cardiac enzymes, there is prior cardiac catherization done as well and reportedly normal Claudio Gardner
--- NOTE | 2018-05-10 19:30 | CP.PCM.CON ---
<Kimberley Rousseau - Last Filed: 05/10/18 19:33> History of Present Illness - History of Present Illness History of Present Illness: Gastroenterology Fellow/PGY6 Consult Note 82 year old female with PMH of dCHF, DM, CAD, and HTN presenting with chest pain. Patient describes burning epigastric pain. Denies nausea, vomiting, hematemesis, dysphagia, odynophagia, diaphoresis, shortness of breath, acid reflux, bloating. Notes left lower quadrant pain worse with palpation and relieved with defecation. Bowel movements every 6-8 days with straining and hard stools. Tried unknown medication without relief. Denies diarrhea, melena, hematochezia., Endorses ten pound unintentional weight loss in last week. No prior EGD or colonoscopy. Family History- brother- unknown cancer Social History- denies tobacco, alcohol, illicit drug use Surgical History- catheterization 07/2017-normal Review of Systems - Review of Systems Review of Systems: 12-point review of systems negative except for as above Past Patient History - Infectious Disease Hx of Infectious Diseases: None - Past Medical History & Family History Past Medical History?: Yes - Past Social History Smoking Status: Never Smoked - CARDIAC Hx Hypercholesterolemia: Yes Hx Hypertension: Yes - PULMONARY Hx Respiratory Disorders: No - NEUROLOGICAL Hx Neurological Disorder: No - HEENT Hx HEENT Problems: No - RENAL Hx Chronic Kidney Disease: No - ENDOCRINE/METABOLIC Hx Diabetes Mellitus Type 2: Yes - HEMATOLOGICAL/ONCOLOGICAL Hx Anemia: Yes - INTEGUMENTARY Hx Dermatological Problems: No - MUSCULOSKELETAL/RHEUMATOLOGICAL Hx Musculoskeletal Disorders: No Hx Falls: No - GASTROINTESTINAL Hx Gastrointestinal Disorders: No - GENITOURINARY/GYNECOLOGICAL Hx Genitourinary Disorders: No - PSYCHIATRIC Hx Substance Use: No - SURGICAL HISTORY Hx Surgeries: No - ANESTHESIA Hx Anesthesia: No Hx Anesthesia Reactions: No Meds Allergies/Adverse Reactions: Allergies Allergy/AdvReac Type Severity Reaction Status Date / Time metronidazole [From Flagyl] Allergy RASH Verified 01/04/18 10:15 - Medications Medications: Current Medications Acetaminophen (Tylenol 325mg Tab) 650 mg PO Q6 PRN PRN Reason: Pain, moderate (4-7) Amlodipine Besylate (Norvasc) 5 mg PO DAILY [facility] Last Admin: 05/10/18 10:04 Dose: 5 mg Aspirin (Aspirin Chewable) 81 mg PO DAILY [facility] Last Admin: 05/10/18 10:04 Dose: 81 mg Carvedilol (Coreg) 25 mg PO BID [facility] Last Admin: 05/10/18 17:32 Dose: 25 mg Dextrose (Dextrose 50% Inj) 0 ml IV STAT PRN; Protocol PRN Reason: Hypoglycemia Protocol Dextrose (Glutose 15) 0 gm PO ONCE PRN; Protocol PRN Reason: Hypoglycemia Protocol Docusate Sodium (Colace) 100 mg PO DAILY [facility] Enoxaparin Sodium (Lovenox) 40 mg SC DAILY [facility] Last Admin: 05/10/18 10:06 Dose: 40 mg Furosemide (Lasix) 40 mg PO DAILY [facility] Last Admin: 05/10/18 10:06 Dose: 40 mg Gabapentin (Neurontin) 100 mg PO TID [facility] Last Admin: 05/10/18 17:32 Dose: 100 mg Glucagon (Glucagen Diagnostic Kit) 0 mg IM STAT PRN; Protocol PRN Reason: Hypoglycemia Protocol Hydralazine HCl (Apresoline) 100 mg PO Q8H [facility] Last Admin: 05/10/18 16:45 Dose: 100 mg Dextrose (Dextrose 5% In Water 1000 Ml) 1,000 mls @ 0 mls/hr IV .Q0M PRN; Protocol; Per Protocol PRN Reason: Hypoglycemia Protocol Insulin Human Regular (Novolin R) 0 unit SC ACHS [facility] PRN Reason: Protocol Last Admin: 05/10/18 17:30 Dose: 3 units Isosorbide Mononitrate (Imdur) 60 mg PO DAILY [facility] Last Admin: 05/10/18 10:05 Dose: 60 mg Pantoprazole Sodium (Protonix Ec Tab) 40 mg PO ACB [facility] Polyethylene Glycol (Miralax) 17 gm PO DAILY [facility] Rosuvastatin Calcium (Crestor) 10 mg PO HS [facility] Physical Exam - Constitutional Appears: Non-toxic, No Acute Distress - Head Exam Head Exam: ATRAUMATIC, NORMOCEPHALIC - Eye Exam Eye Exam: EOMI, PERRL. absent: Scleral icterus Pupil Exam: PERRL. absent: Miosis, Mydriatic - ENT Exam ENT Exam: Mucous Membranes Moist, Normal Oropharynx - Neck Exam Neck exam: Positive for: Full Rom, Normal Inspection - Respiratory Exam Respiratory Exam: Clear to Auscultation Bilateral. absent: Rales, Rhonchi, Wheezes - Cardiovascular Exam Cardiovascular Exam: RRR, +S1, +S2. absent: Gallop, Rubs - GI/Abdominal Exam GI & Abdominal Exam: Normal Bowel Sounds, Soft, Tenderness. absent: Distended, Firm, Guarding, Organomegaly, Rebound, Rigid Additional comments: epigastric and LLQ tenderness to palpation - Extremities Exam Extremities exam: Positive for: normal inspection. Negative for: pedal edema - Neurological Exam Neurological exam: Alert - Psychiatric Exam Psychiatric exam: Normal Affect, Normal Mood - Skin Skin Exam: Dry, Intact, Normal Color, Warm Results - Vital Signs Recent Vital Signs: Last Vital Signs Temp 98.1 F 05/10/18 15:00 Pulse 77 05/10/18 15:00 Resp 20 05/10/18 15:00 BP 144/65 05/10/18 17:32 Pulse Ox 97 05/10/18 15:00 - Labs Result Diagrams: 05/10/18 07:18 05/10/18 07:18 Labs: Laboratory Results - last 24 hr 05/10/18 05/10/18 05/10/18 00:45 00:45 06:25 WBC RBC Hgb Hct MCV MCH MCHC RDW Plt Count MPV Neut % (Auto) Lymph % (Auto) Hunt % (Auto) Eos % (Auto) Baso % (Auto) Neut # (Auto) Lymph # (Auto) Hunt # (Auto) Eos # (Auto) Baso # (Auto) Sodium Potassium Chloride Carbon Dioxide Anion Gap BUN Creatinine Est GFR ( Amer) Est GFR (Non-Af Amer) POC Glucose (mg/dL) 93 Random Glucose Calcium Iron TIBC % Saturation Total Bilirubin AST ALT Alkaline Phosphatase Total Creatine Kinase 38 CK-MB (Mass) < 0.22 Troponin I < 0.0120 Total Protein Albumin Globulin Albumin/Globulin Ratio Urine Color Straw Urine Clarity Clear Urine pH 5.0 Ur Specific Carriere 1.019 Urine Protein Negative Urine Glucose (UA) Normal Urine Ketones Negative Urine Blood Negative Urine Nitrate Negative Urine Bilirubin Negative Urine Urobilinogen Normal Ur Leukocyte Esterase Neg Urine WBC (Auto) 6 H Urine RBC (Auto) 1 Ur Squamous Epith Cells < 1 05/10/18 05/10/18 05/10/18 07:18 07:18 07:18 WBC 5.6 RBC 3.11 L Hgb 8.5 L Hct 25.0 L MCV 80.5 L MCH 27.4 MCHC 34.0 RDW 14.4 Plt Count 149 MPV 7.9 Neut % (Auto) 61.2 Lymph % (Auto) 19.5 L Hunt % (Auto) 15.0 H Eos % (Auto) 3.5 Baso % (Auto) 0.8 Neut # (Auto) 3.5 Lymph # (Auto) 1.1 Hunt # (Auto) 0.8 Eos # (Auto) 0.2 Baso # (Auto) 0.0 Sodium 141 Potassium 3.5 L Chloride 107 Carbon Dioxide 19 L Anion Gap 18 BUN 43 H Creatinine 1.2 Est GFR ( Amer) 52 Est GFR (Non-Af Amer) 43 POC Glucose (mg/dL) Random Glucose 138 H Calcium 8.5 L Iron TIBC % Saturation Total Bilirubin 0.4 AST 21 ALT 22 Alkaline Phosphatase 84 Total Creatine Kinase 32 CK-MB (Mass) < 0.22 Troponin I 0.0180 Total Protein 6.7 Albumin 3.8 Globulin 2.9 Albumin/Globulin Ratio 1.3 Urine Color Urine Clarity Urine pH Ur Specific Carriere Urine Protein Urine Glucose (UA) Urine Ketones Urine Blood Urine Nitrate Urine Bilirubin Urine Urobilinogen Ur Leukocyte Esterase Urine WBC (Auto) Urine RBC (Auto) Ur Squamous Epith Cells 05/10/18 05/10/18 05/10/18 07:18 12:07 16:35 WBC RBC Hgb Hct MCV MCH MCHC RDW Plt Count MPV Neut % (Auto) Lymph % (Auto) Hunt % (Auto) Eos % (Auto) Baso % (Auto) Neut # (Auto) Lymph # (Auto) Hunt # (Auto) Eos # (Auto) Baso # (Auto) Sodium Potassium Chloride Carbon Dioxide Anion Gap BUN Creatinine Est GFR ( Amer) Est GFR (Non-Af Amer) POC Glucose (mg/dL) 149 H 209 H Random Glucose Calcium Iron 25 L TIBC 339 % Saturation 7 L Total Bilirubin AST ALT Alkaline Phosphatase Total Creatine Kinase CK-MB (Mass) Troponin I Total Protein Albumin Globulin Albumin/Globulin Ratio Urine Color Urine Clarity Urine pH Ur Specific Carriere Urine Protein Urine Glucose (UA) Urine Ketones Urine Blood Urine Nitrate Urine Bilirubin Urine Urobilinogen Ur Leukocyte Esterase Urine WBC (Auto) Urine RBC (Auto) Ur Squamous Epith Cells Assessment & Plan - Assessment and Plan (Free Text) Assessment: 82 year old female with PMH of dCHF, DM, CAD, and HTN presenting with chest pain. GI consultation for epigastric and LLQ pain. No prior EGD or colonoscopy. Plan: -MELD 9 -CT A/P today -cirrhosis- unclear etiology -obtain complete hepatitis panel -constipation- ordered Miralax and COlace -heartburn- ordered protonix 40mg ACB for 2-3 weeks -primary managing chest pain workup- cath 07/2017- normal -outpatient workup for cirrhosis, colonoscopy for CRC screening, and re- evaluation of heartburn after PPI trial <Sohail Tolbert Y - Last Filed: 05/10/18 19:54> Meds - Medications Medications: Current Medications Acetaminophen (Tylenol 325mg Tab) 650 mg PO Q6 PRN PRN Reason: Pain, moderate (4-7) Amlodipine Besylate (Norvasc) 5 mg PO DAILY [facility] Last Admin: 05/10/18 10:04 Dose: 5 mg Aspirin (Aspirin Chewable) 81 mg PO DAILY [facility] Last Admin: 05/10/18 10:04 Dose: 81 mg Carvedilol (Coreg) 25 mg PO BID [facility] Last Admin: 05/10/18 17:32 Dose: 25 mg Dextrose (Dextrose 50% Inj) 0 ml IV STAT PRN; Protocol PRN Reason: Hypoglycemia Protocol Dextrose (Glutose 15) 0 gm PO ONCE PRN; Protocol PRN Reason: Hypoglycemia Protocol Docusate Sodium (Colace) 100 mg PO DAILY [facility] Enoxaparin Sodium (Lovenox) 40 mg SC DAILY [facility] Last Admin: 05/10/18 10:06 Dose: 40 mg Furosemide (Lasix) 40 mg PO DAILY [facility] Last Admin: 05/10/18 10:06 Dose: 40 mg Gabapentin (Neurontin) 100 mg PO TID [facility] Last Admin: 05/10/18 17:32 Dose: 100 mg Glucagon (Glucagen Diagnostic Kit) 0 mg IM STAT PRN; Protocol PRN Reason: Hypoglycemia Protocol Hydralazine HCl (Apresoline) 100 mg PO Q8H [facility] Last Admin: 05/10/18 16:45 Dose: 100 mg Dextrose (Dextrose 5% In Water 1000 Ml) 1,000 mls @ 0 mls/hr IV .Q0M PRN; Protocol; Per Protocol PRN Reason: Hypoglycemia Protocol Insulin Human Regular (Novolin R) 0 unit SC ACHS [facility] PRN Reason: Protocol Last Admin: 05/10/18 17:30 Dose: 3 units Isosorbide Mononitrate (Imdur) 60 mg PO DAILY [facility] Last Admin: 05/10/18 10:05 Dose: 60 mg Pantoprazole Sodium (Protonix Ec Tab) 40 mg PO ACB [facility] Polyethylene Glycol (Miralax) 17 gm PO DAILY [facility] Rosuvastatin Calcium (Crestor) 10 mg PO HS [facility] Results - Vital Signs Recent Vital Signs: Last Vital Signs Temp 98.1 F 05/10/18 15:00 Pulse 77 05/10/18 15:00 Resp 20 05/10/18 15:00 BP 144/65 05/10/18 17:32 Pulse Ox 97 05/10/18 15:00 - Labs Result Diagrams: 05/10/18 07:18 05/10/18 07:18 Labs: Laboratory Results - last 24 hr 05/10/18 05/10/18 05/10/18 00:45 00:45 06:25 WBC RBC Hgb Hct MCV MCH MCHC RDW Plt Count MPV Neut % (Auto) Lymph % (Auto) Hunt % (Auto) Eos % (Auto) Baso % (Auto) Neut # (Auto) Lymph # (Auto) Hunt # (Auto) Eos # (Auto) Baso # (Auto) Sodium Potassium Chloride Carbon Dioxide Anion Gap BUN Creatinine Est GFR ( Amer) Est GFR (Non-Af Amer) POC Glucose (mg/dL) 93 Random Glucose Calcium Iron TIBC % Saturation Total Bilirubin AST ALT Alkaline Phosphatase Total Creatine Kinase 38 CK-MB (Mass) < 0.22 Troponin I < 0.0120 Total Protein Albumin Globulin Albumin/Globulin Ratio Urine Color Straw Urine Clarity Clear Urine pH 5.0 Ur Specific Carriere 1.019 Urine Protein Negative Urine Glucose (UA) Normal Urine Ketones Negative Urine Blood Negative Urine Nitrate Negative Urine Bilirubin Negative Urine Urobilinogen Normal Ur Leukocyte Esterase Neg Urine WBC (Auto) 6 H Urine RBC (Auto) 1 Ur Squamous Epith Cells < 1 05/10/18 05/10/18 05/10/18 07:18 07:18 07:18 WBC 5.6 RBC 3.11 L Hgb 8.5 L Hct 25.0 L MCV 80.5 L MCH 27.4 MCHC 34.0 RDW 14.4 Plt Count 149 MPV 7.9 Neut % (Auto) 61.2 Lymph % (Auto) 19.5 L Hunt % (Auto) 15.0 H Eos % (Auto) 3.5 Baso % (Auto) 0.8 Neut # (Auto) 3.5 Lymph # (Auto) 1.1 Hunt # (Auto) 0.8 Eos # (Auto) 0.2 Baso # (Auto) 0.0 Sodium 141 Potassium 3.5 L Chloride 107 Carbon Dioxide 19 L Anion Gap 18 BUN 43 H Creatinine 1.2 Est GFR ( Amer) 52 Est GFR (Non-Af Amer) 43 POC Glucose (mg/dL) Random Glucose 138 H Calcium 8.5 L Iron TIBC % Saturation Total Bilirubin 0.4 AST 21 ALT 22 Alkaline Phosphatase 84 Total Creatine Kinase 32 CK-MB (Mass) < 0.22 Troponin I 0.0180 Total Protein 6.7 Albumin 3.8 Globulin 2.9 Albumin/Globulin Ratio 1.3 Urine Color Urine Clarity Urine pH Ur Specific Carriere Urine Protein Urine Glucose (UA) Urine Ketones Urine Blood Urine Nitrate Urine Bilirubin Urine Urobilinogen Ur Leukocyte Esterase Urine WBC (Auto) Urine RBC (Auto) Ur Squamous Epith Cells 05/10/18 05/10/18 05/10/18 07:18 12:07 16:35 WBC RBC Hgb Hct MCV MCH MCHC RDW Plt Count MPV Neut % (Auto) Lymph % (Auto) Hunt % (Auto) Eos % (Auto) Baso % (Auto) Neut # (Auto) Lymph # (Auto) Hunt # (Auto) Eos # (Auto) Baso # (Auto) Sodium Potassium Chloride Carbon Dioxide Anion Gap BUN Creatinine Est GFR ( Amer) Est GFR (Non-Af Amer) POC Glucose (mg/dL) 149 H 209 H Random Glucose Calcium Iron 25 L TIBC 339 % Saturation 7 L Total Bilirubin AST ALT Alkaline Phosphatase Total Creatine Kinase CK-MB (Mass) Troponin I Total Protein Albumin Globulin Albumin/Globulin Ratio Urine Color Urine Clarity Urine pH Ur Specific Carriere Urine Protein Urine Glucose (UA) Urine Ketones Urine Blood Urine Nitrate Urine Bilirubin Urine Urobilinogen Ur Leukocyte Esterase Urine WBC (Auto) Urine RBC (Auto) Ur Squamous Epith Cells Attending/Attestation - Attestation I have personally seen and examined this patient.: Yes I have fully participated in the care of the patient.: Yes I have reviewed all pertinent clinical information: Yes Notes (Text): 05/10/18 19:50 I have seen and examined patient with GI fellow. Agree with above documentation with the following additions. In brief, this is an 82 year old female with history of cirrhosis (unclear etiology), DM, CHF, HTN who presents to hospital with complaint of abdominal and chest pain. She notes chronic constipation and typically has a bowel movement after 4-5 days, recently it has been near 6 days. Her pain is mainly located in LLQ, 7/10 intensity and improved following defecation. She had a bowel movement earlier today with improvement in discomfort. She denies nausea, vomiting, fever/chills, or rectal bleeding. No prior endoscopic evaluation. Cirrhosis (unclear etiology), MELD 9 DM CHF HTN Abdominal pain, constipation CT imaging reviewed showing no gross bowel pathology - Diet as tolerated - Maintain aggressive bowel regimen to prevent constipation - Encourage increased PO water and fiber intake - Patient would benefit from outpatient elective endoscopic evaluation along with further cirrhosis work up. No planned GI interventions at current time, will sign off case. Please reconsult as necessary, thank you.
[2018-05-11] MEDS: (Novolin R) Insulin Human Regular 100 units/ml vial SC SCH ×4 (08:22→21:54)
[2018-05-11] MEDS: Pantoprazole 40 mg EC Tab PO SCH (08:30)
[2018-05-11] MEDS ORDERED: Enoxaparin 30 mg Syringe SC SCH (10:00)
[2018-05-11] MEDS ORDERED: Imipenem/Cilastatin 500 MG in Dextrose 5% In Water 100 ML IVPB SCH (10:15)
[2018-05-11] MEDS: POLYETHYLENE GLYCOL 3350 17 GM/Dose PACKET PO SCH (10:30)
[2018-05-11 11:26] LABS: BASO % 0.1 % (0.0-2.0); EOS # 0.2 K/uL (0.0-0.7); HEMOGLOBIN 8.8 g/dL (11.0-16.0); LYMPH # 0.8 K/uL (1.0-4.3); LYMPH % 14.2 % (20.0-40.0); MEAN CELL VOLUME 80.8 fL (81.0-99.0); MEAN CORPUSCULAR HEMOGLOBIN 27.1 pg (27.0-31.0); MEAN CORPUSCULAR HGB CONC 33.5 g/dL (33.0-37.0); MEAN PLATELET VOLUME 8.4 fL (7.2-11.7); MONO # 0.5 K/uL (0.0-0.8); MONO % 9.9 % (0.0-10.0); NEUT # 3.9 K/uL (1.8-7.0); NEUT % 71.8 % (50.0-75.0); RBC 3.26 Mil/uL (3.80-5.20); RED CELL DISTRIBUTION WIDTH 14.6 % (11.5-14.5); WHITE BLOOD COUNT 5.5 K/uL (4.8-10.8)
[2018-05-11 11:47] LABS: ALB/GLOB RATIO 1.3 (1.0-2.1); ALBUMIN 3.6 g/dL (3.5-5.0); CALCIUM 8.4 mg/dl (8.6-10.4)
[2018-05-11] MEDS ORDERED: (Novolin R) Insulin Human Regular 100 units/ml vial SC SCH (11:48)
[2018-05-11] MEDS ORDERED: Sodium Chloride 0.9% 500 ML IV ONE (12:22)
[2018-05-11] MEDS: Nystatin 100,000 Units/gm Cream(15 gm) TOP SCH ×2 (14:52→18:46)
--- NOTE | 2018-05-11 17:58 | CP.PCM.PN ---
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 Patient reports that her pain, previously localized to her substernal region has subsided. Patient states that she has continued mild left lower quadrant abdominal pain. Patient was able to tolerate diet without issue. Patient endorses normal bowel movement without diarrhea and/or constipation. Patient otherwise denies headache, dysuria , nausea, vomiting, fever, shortness of breath, numbness and/or tingling in lower extremities. Objective - Vital Signs/Intake and Output Vital Signs (last 24 hours): Temp Pulse Resp BP Pulse Ox 98.2 F 82 20 131/64 96 05/11/18 15:39 05/11/18 15:40 05/11/18 15:39 05/11/18 15:39 05/11/18 15:39 Intake and Output: 05/11/18 05/11/18 06:59 18:59 Intake Total 350 Balance 350 - Medications Medications: Current Medications Acetaminophen (Tylenol 325mg Tab) 650 mg PO Q6 PRN PRN Reason: Pain, moderate (4-7) Amlodipine Besylate (Norvasc) 5 mg PO DAILY [facility] Last Admin: 05/11/18 10:31 Dose: 5 mg Aspirin (Aspirin Chewable) 81 mg PO DAILY [facility] Last Admin: 05/11/18 10:31 Dose: 81 mg Carvedilol (Coreg) 25 mg PO BID [facility] Last Admin: 05/11/18 10:31 Dose: 25 mg Dextrose (Dextrose 50% Inj) 0 ml IV STAT PRN; Protocol PRN Reason: Hypoglycemia Protocol Dextrose (Glutose 15) 0 gm PO ONCE PRN; Protocol PRN Reason: Hypoglycemia Protocol Docusate Sodium (Colace) 100 mg PO DAILY [facility] Last Admin: 05/11/18 10:30 Dose: 100 mg Enoxaparin Sodium (Lovenox) 30 mg SC DAILY [facility] Last Admin: 05/11/18 10:31 Dose: 30 mg Furosemide (Lasix) 40 mg PO DAILY [facility] Last Admin: 05/11/18 10:31 Dose: 40 mg Gabapentin (Neurontin) 100 mg PO TID [facility] Last Admin: 05/11/18 14:52 Dose: 100 mg Glucagon (Glucagen Diagnostic Kit) 0 mg IM STAT PRN; Protocol PRN Reason: Hypoglycemia Protocol Hydralazine HCl (Apresoline) 100 mg PO Q8H [facility] Last Admin: 05/11/18 14:52 Dose: 100 mg Dextrose (Dextrose 5% In Water 1000 Ml) 1,000 mls @ 0 mls/hr IV .Q0M PRN; Protocol; Per Protocol PRN Reason: Hypoglycemia Protocol Imipenem/Cilastatin Sodium 500 (mg/ Sodium Chloride) 100 mls @ 100 mls/hr IVPB Q12H [facility] PRN Reason: Protocol Last Admin: 05/11/18 13:01 Dose: 100 mls/hr Sodium Chloride (Sodium Chloride 0.9%) 500 mls @ 70 mls/hr IV .Q7H9M ONE Stop: 05/11/18 19:30 Last Admin: 05/11/18 12:57 Dose: 70 mls/hr Insulin Human Regular (Novolin R) 0 unit SC ACHS [facility] PRN Reason: Protocol Last Admin: 05/11/18 12:57 Dose: 4 u Isosorbide Mononitrate (Imdur) 60 mg PO DAILY [facility] Last Admin: 05/11/18 10:31 Dose: 60 mg Nystatin (Mycostatin Cream) 0 ea TOP TID [facility] Last Admin: 05/11/18 14:52 Dose: 1 appl Pantoprazole Sodium (Protonix Ec Tab) 40 mg PO ACB [facility] Last Admin: 05/11/18 08:30 Dose: 40 mg Polyethylene Glycol (Miralax) 17 gm PO DAILY [facility] Last Admin: 05/11/18 10:30 Dose: 17 gm Rosuvastatin Calcium (Crestor) 10 mg PO HS [facility] Last Admin: 05/10/18 22:50 Dose: Not Given - Labs Labs: 05/11/18 11:17 05/11/18 11:17 PT 12.4 SECONDS (9.7-12.2) H 05/09/18 18:10 INR 1.1 05/09/18 18:10 APTT 29 SECONDS (21-34) 05/09/18 18:10 - Additional Findings Additional findings: - Constitutional Appears: Non-toxic, No Acute Distress - Head Exam Head Exam: ATRAUMATIC, NORMOCEPHALIC - Eye Exam Eye Exam: Normal appearance - ENT Exam ENT Exam: Mucous Membranes Moist - Neck Exam Neck exam: Negative for: Lymphadenopathy - Respiratory Exam Respiratory Exam: Clear to Auscultation Bilateral, NORMAL BREATHING PATTERN. absent: Accessory Muscle Use, Chest Wall Tenderness, Rales, Rhonchi, Wheezes, Respiratory Distress - Cardiovascular Exam Cardiovascular Exam: REGULAR RHYTHM, +S1 - GI/Abdominal Exam GI & Abdominal Exam: Soft, Tenderness (lower abdomen, most severe suprapubic/LLQ ). absent: Distended, Rigid - Extremities Exam Extremities exam: Positive for: normal inspection, pedal pulses present. Negative for: calf tenderness, pedal edema - Neurological Exam Neurological exam: Alert, Oriented x3 - Psychiatric Exam Psychiatric exam: Normal Affect, Normal Mood - Skin Skin Exam: Dry, Warm Assessment and Plan - Assessment and Plan (Free Text) Assessment: Assessment: Chest pain, resolved - Due to recent clean cardic cath, low suspicion for ischemic etiology. No cardiac consult indicated at this time. - CXR 05/09/18: Questionable interval nodular density right perihilar region versus vascular overlap. Follow-up chest CT with contrast is advised for better characterization. No airspace disease, pleural effusion or pneumothorax bilaterally. - Chest CT w/IV contrast 05/09/18: No acute cardiopulmonary process. No suspicious pulmonary nodules or masses. - Stress Test (07/20/17) - Showed defect possibly representing ischemia - Cardiac Cath (07/21/17) - Angiographically normal coronaries and normal LV systolic function - Echo (07/17/17): Grade II diastolic dysfunction; EF 55% - EUGENIA negative x3 - CT chest with contrast per report: Cardiomegaly, atherosclerotic calcifications of aorta Lower abdominal pain - GI consulted (Dr. Tolbert), recommendations appreciated * Recommended outpatient elective endoscopy to evaluate further - Abd/pelvis CT w/PO contrast per report: No acute abdominal or pelvic CT findings. Cirrhotic liver reiterated. Proximal duodenal diverticulum reiterated. Apparent resolution of prior bilateral pleural effusions and pericardial effusion. Cardiomegaly stable. - UA (clean catch): blood 1+, leukocyte glory 3+, WBC/RBC high, epith cells 1 - UA (straight cath): unremarkable except WBC 6, no leuk - Urine culture clean catch: Gram negative rods <10,000 colonies * Patient started on Primaxin 500mg IV Q12 - ED course: received one dose of Zosyn. History of Diastolic CHF (Type II) - Controlled - BNP 3290 * CXR repeat in AM ordered - Daily weights/monitor intake and output - Continue Home Medications: * Aspirin 81mg PO daily * Coreg 25mg PO BID * Lasix 40mg PO daily * Crestor 10mg once at night History of Hypertension - Continue Home Medications: * Norvasc 5mg PO daily * Coreg 25mg PO BID * Hydralazine 100mg PO q8h * Isosorbide Mononitrate 60mg PO daily - Monitor History of Chronic Leg Pain - Continue home medication * Gabapentin 100mg PO TID - Start Tylenol 650mg Q6 PO for moderate pain Diabetes - ISS mod - Accuchecks: * per nurse, patient refused accuchecks overnight - Continue to hold metformin while in the hospital - Hypoglycemia protocol History of anemia - Stable, likely due to chronic disease and low iron - Was seen by heme/onc on last visit Prophylactic measure - Lovenox 40mg SC daily - Pepcid 20mg PO daily - Consistent carb, heart healthy, 2gm sodium diet Dispo: PT evaluated and recommended PT 3-5 x/week for 2 weeks. Case management consulted, will follow up on recommendations. Patient seen and case discussed with Attending Physician, Dr. Kendra Longoria PGY1
--- NOTE | 2018-05-12 06:14 | CP.PCM.PN ---
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 Patient reports that her pain, previously localized to her substernal region has subsided. Patient states that she has continued mild left lower quadrant abdominal pain. Patient was able to tolerate diet without issue. Patient endorses normal bowel movement without diarrhea and/or constipation. Patient otherwise denies headache, dysuria , nausea, vomiting, fever, shortness of breath, numbness and/or tingling in lower extremities. Of note, a code star was called on patient in the AM. Please see fall note for more detail. Objective - Vital Signs/Intake and Output Vital Signs (last 24 hours): Temp Pulse Resp BP Pulse Ox 98.4 F 89 20 125/58 L 95 05/11/18 23:20 05/12/18 00:56 05/11/18 23:20 05/11/18 23:20 05/11/18 23:20 Intake and Output: 05/11/18 05/12/18 18:59 06:59 Intake Total 200 Balance 200 - Medications Medications: Current Medications Acetaminophen (Tylenol 325mg Tab) 650 mg PO Q6 PRN PRN Reason: Pain, moderate (4-7) Amlodipine Besylate (Norvasc) 5 mg PO DAILY [facility] Last Admin: 05/11/18 10:31 Dose: 5 mg Aspirin (Aspirin Chewable) 81 mg PO DAILY [facility] Last Admin: 05/11/18 10:31 Dose: 81 mg Carvedilol (Coreg) 25 mg PO BID [facility] Last Admin: 05/11/18 18:46 Dose: 25 mg Dextrose (Dextrose 50% Inj) 0 ml IV STAT PRN; Protocol PRN Reason: Hypoglycemia Protocol Dextrose (Glutose 15) 0 gm PO ONCE PRN; Protocol PRN Reason: Hypoglycemia Protocol Docusate Sodium (Colace) 100 mg PO DAILY [facility] Last Admin: 05/11/18 10:30 Dose: 100 mg Enoxaparin Sodium (Lovenox) 30 mg SC DAILY [facility] Last Admin: 05/11/18 10:31 Dose: 30 mg Furosemide (Lasix) 40 mg PO DAILY [facility] Last Admin: 05/11/18 10:31 Dose: 40 mg Gabapentin (Neurontin) 100 mg PO TID [facility] Last Admin: 05/11/18 18:46 Dose: 100 mg Glucagon (Glucagen Diagnostic Kit) 0 mg IM STAT PRN; Protocol PRN Reason: Hypoglycemia Protocol Hydralazine HCl (Apresoline) 100 mg PO Q8H [facility] Last Admin: 05/12/18 00:34 Dose: 100 mg Dextrose (Dextrose 5% In Water 1000 Ml) 1,000 mls @ 0 mls/hr IV .Q0M PRN; Protocol; Per Protocol PRN Reason: Hypoglycemia Protocol Imipenem/Cilastatin Sodium 500 (mg/ Sodium Chloride) 100 mls @ 100 mls/hr IVPB Q12H [facility] PRN Reason: Protocol Last Admin: 05/12/18 00:34 Dose: 100 mls/hr Insulin Human Regular (Novolin R) 0 unit SC ACHS [facility] PRN Reason: Protocol Last Admin: 05/11/18 21:54 Dose: Not Given Isosorbide Mononitrate (Imdur) 60 mg PO DAILY [facility] Last Admin: 05/11/18 10:31 Dose: 60 mg Nystatin (Mycostatin Cream) 0 ea TOP TID [facility] Last Admin: 05/11/18 18:46 Dose: 1 appl Pantoprazole Sodium (Protonix Ec Tab) 40 mg PO ACB [facility] Last Admin: 05/11/18 08:30 Dose: 40 mg Polyethylene Glycol (Miralax) 17 gm PO DAILY [facility] Last Admin: 05/11/18 10:30 Dose: 17 gm Rosuvastatin Calcium (Crestor) 10 mg PO HS [facility] Last Admin: 05/11/18 22:25 Dose: 10 mg - Labs Labs: 05/11/18 11:17 05/11/18 11:17 PT 12.4 SECONDS (9.7-12.2) H 05/09/18 18:10 INR 1.1 05/09/18 18:10 APTT 29 SECONDS (21-34) 05/09/18 18:10 - Additional Findings Additional findings: - Constitutional Appears: Non-toxic, No Acute Distress - Head Exam Head Exam: ATRAUMATIC, NORMOCEPHALIC - Eye Exam Eye Exam: Normal appearance - ENT Exam ENT Exam: Mucous Membranes Moist - Neck Exam Neck exam: Negative for: Lymphadenopathy - Respiratory Exam Respiratory Exam: Clear to Auscultation Bilateral, NORMAL BREATHING PATTERN. absent: Accessory Muscle Use, Chest Wall Tenderness, Rales, Rhonchi, Wheezes, Respiratory Distress - Cardiovascular Exam Cardiovascular Exam: REGULAR RHYTHM, +S1 - GI/Abdominal Exam GI & Abdominal Exam: Soft, Tenderness (lower abdomen, most severe suprapubic/LLQ ). absent: Distended, Rigid - Extremities Exam Extremities exam: Positive for: normal inspection, pedal pulses present. Negative for: calf tenderness, pedal edema - Neurological Exam Neurological exam: Alert, Oriented x3 - Psychiatric Exam Psychiatric exam: Normal Affect, Normal Mood - Skin Skin Exam: Dry, Warm Assessment and Plan - Assessment and Plan (Free Text) Assessment: Chest pain, resolved - Due to recent clean cardic cath, low suspicion for ischemic etiology. No cardiac consult indicated at this time. - CXR 05/09/18: Questionable interval nodular density right perihilar region versus vascular overlap. Follow-up chest CT with contrast is advised for better characterization. No airspace disease, pleural effusion or pneumothorax bilaterally. - Chest CT w/IV contrast 05/09/18: No acute cardiopulmonary process. No suspicious pulmonary nodules or masses. - Stress Test (07/20/17) - Showed defect possibly representing ischemia - Cardiac Cath (07/21/17) - Angiographically normal coronaries and normal LV systolic function - Echo (07/17/17): Grade II diastolic dysfunction; EF 55% - EUGENIA negative x3 - CT chest with contrast per report: Cardiomegaly, atherosclerotic calcifications of aorta Lower abdominal pain - GI consulted (Dr. Tolbert), recommendations appreciated * Recommended outpatient elective endoscopy to evaluate further - Abd/pelvis CT w/PO contrast per report: No acute abdominal or pelvic CT findings. Cirrhotic liver reiterated. Proximal duodenal diverticulum reiterated. Apparent resolution of prior bilateral pleural effusions and pericardial effusion. Cardiomegaly stable. - UA (clean catch): blood 1+, leukocyte glory 3+, WBC/RBC high, epith cells 1 - UA (straight cath): unremarkable except WBC 6, no leuk - Urine culture clean catch: Gram negative rods <10,000 colonies * Patient started on Primaxin 500mg IV Q12 - ED course: received one dose of Zosyn. Acute Kidney Injury likely secondary to contrast received - Elevated BUN=55, Cr=2.4 (increased from 1.4) - Discontinued: Lasix 40mg PO daily * Gentle hydration 500cc at 70cc per hour - Monitor History of Diastolic CHF (Type II) - Controlled - BNP 3290 * CXR repeat in AM ordered - Daily weights/monitor intake and output - Continue Home Medications: * Aspirin 81mg PO daily * Coreg 25mg PO BID * Crestor 10mg once at night History of Hypertension - Continue Home Medications: * Norvasc 5mg PO daily * Coreg 25mg PO BID * Hydralazine 100mg PO q8h * Isosorbide Mononitrate 60mg PO daily - Monitor History of Chronic Leg Pain - Continue home medication * Gabapentin 100mg PO TID - Continue Tylenol 650mg Q6 PO for moderate pain Diabetes - ISS mod - Accuchecks - Continue to hold metformin while in the hospital - Hypoglycemia protocol History of anemia - Stable, likely due to chronic disease and low iron - Was seen by heme/onc on last visit Prophylactic measure - Lovenox 40mg SC daily - Pepcid 20mg PO daily - Consistent carb, heart healthy, 2gm sodium diet Dispo: PT evaluated and recommended PT 3-5 x/week for 2 weeks. Case management consulted, will follow up on recommendations. Patient seen and case discussed with Attending Physician, Dr. Kendra Longoria PGY1 <Claudio Gardner - Last Filed: 05/13/18 07:34> Objective - Vital Signs/Intake and Output Vital Signs (last 24 hours): Temp Pulse Resp BP Pulse Ox 98.8 F 76 20 146/65 95 05/12/18 23:35 05/13/18 01:00 05/12/18 23:35 05/13/18 00:57 05/12/18 23:35 Intake and Output: 05/13/18 05/13/18 06:59 18:59 Intake Total 600 Balance 600 - Medications Medications: Current Medications Acetaminophen (Tylenol 325mg Tab) 650 mg PO Q6 PRN PRN Reason: Pain, moderate (4-7) Last Admin: 05/12/18 10:45 Dose: 650 mg Amlodipine Besylate (Norvasc) 5 mg PO DAILY [facility] Last Admin: 05/12/18 10:40 Dose: 5 mg Aspirin (Aspirin Chewable) 81 mg PO DAILY [facility] Last Admin: 05/12/18 10:40 Dose: 81 mg Carvedilol (Coreg) 25 mg PO BID [facility] Last Admin: 05/12/18 18:02 Dose: 25 mg Dextrose (Dextrose 50% Inj) 0 ml IV STAT PRN; Protocol PRN Reason: Hypoglycemia Protocol Dextrose (Glutose 15) 0 gm PO ONCE PRN; Protocol PRN Reason: Hypoglycemia Protocol Docusate Sodium (Colace) 100 mg PO DAILY [facility] Last Admin: 05/12/18 10:40 Dose: 100 mg Furosemide (Lasix) 40 mg PO DAILY [facility] Last Admin: 05/11/18 10:31 Dose: 40 mg Gabapentin (Neurontin) 100 mg PO TID [facility] Last Admin: 05/12/18 18:02 Dose: 100 mg Glucagon (Glucagen Diagnostic Kit) 0 mg IM STAT PRN; Protocol PRN Reason: Hypoglycemia Protocol Heparin Sodium (Porcine) (Heparin) 5,000 units SC Q8 [facility] Last Admin: 05/13/18 05:53 Dose: 5,000 units Hydralazine HCl (Apresoline) 100 mg PO Q8H [facility] Last Admin: 05/13/18 00:59 Dose: 100 mg Hydrocortisone (Cortizone 0.5% Cream) 1 applic TOP BID [facility] Last Admin: 05/12/18 18:01 Dose: 1 appl Dextrose (Dextrose 5% In Water 1000 Ml) 1,000 mls @ 0 mls/hr IV .Q0M PRN; Protocol; Per Protocol PRN Reason: Hypoglycemia Protocol Imipenem/Cilastatin Sodium 500 (mg/ Sodium Chloride) 100 mls @ 100 mls/hr IVPB Q12H [facility] PRN Reason: Protocol Last Admin: 05/13/18 00:59 Dose: 100 mls/hr Insulin Human Regular (Novolin R) 0 unit SC ACHS [facility] PRN Reason: Protocol Last Admin: 05/12/18 17:30 Dose: 2 units Isosorbide Mononitrate (Imdur) 60 mg PO DAILY [facility] Last Admin: 05/12/18 10:40 Dose: 60 mg Nystatin (Mycostatin Cream) 0 ea TOP TID [facility] Last Admin: 05/12/18 18:01 Dose: 1 appl Pantoprazole Sodium (Protonix Ec Tab) 40 mg PO ACB [facility] Last Admin: 05/12/18 08:07 Dose: 40 mg Polyethylene Glycol (Miralax) 17 gm PO DAILY [facility] Last Admin: 05/12/18 10:40 Dose: 17 gm Rosuvastatin Calcium (Crestor) 10 mg PO HS [facility] Last Admin: 05/12/18 22:32 Dose: 10 mg - Labs Labs: 05/13/18 07:00 05/12/18 08:32 PT 12.4 SECONDS (9.7-12.2) H 05/09/18 18:10 INR 1.1 05/09/18 18:10 APTT 29 SECONDS (21-34) 05/09/18 18:10 Attending/Attestation - Attestation I have personally seen and examined this patient.: Yes I have fully participated in the care of the patient.: Yes I have reviewed all pertinent clinical information, including history, physical exam and plan: Yes Notes (Text): 05/13/18 07:29 Medical attending: Patient was seen and examined by me. Agree with the above note by the resident. The patient was not in any acute distress when I came and saw her. She has been working with PT and she is able to stand and walk around with them - however she had to be re-directed by them several times and with both verbal and visual cues. The patient is currently on IV primaxin for UTI Will need to repeat the UC soon. Per the help of clinical assoc today the patient was complaining of pain everywhere - this also included chest, stomach, legs, feet, arms, and hand. It is not clear to me if there is some sort of underlying depression or psychiatric disorder. lCaudio Gardner
--- NOTE | 2018-05-12 06:57 | PCM.FALL ---
Post Fall Progress Note - Post Fall Fall Date: 05/12/18 Fall Time: 06:28 - Post Fall Exam Vital Sign: Temp Pulse Resp BP Pulse Ox 98.4 F 89 20 125/58 L 95 05/11/18 23:20 05/12/18 00:56 05/11/18 23:20 05/11/18 23:20 05/11/18 23:20 Skull Exam: Negative for: Scalp wound, Scalp hematoma, Scalp depression, Ridge in skull Eye Exam: Positive for: Pupils equal, Pupils reactive Ear Exam: Negative for: Discharge, Bleeding Nose Exam: Negative for: Discharge, Bleeding Skin Exam: Negative for: Lacerations, Grazes, Bruising Mouth Exam: Negative for: Tongue bitten, Teeth dislodge Neck Exam: Negative for: Tenderness, Tingling, Weakness Spinal Exam: Negative for: Tenderness, Tingling, Weakness Chest Exam: Negative for: Difficulty breathing, Tenderness in collar bones, Tenderness in ribs Abdomen Exam: Positive for: Tenderness (mild tenderness to left upper/lower abdomen, unchanged from earlier exam today. ) Pelvic Exam: Negative for: Tenderness, Hematuria Arm Exam: Negative for: Deformity Leg Exam: Negative for: Deformity (Patient had 4/5 muscle strength in lower extremities bilaterally. Gross sensation in tact bilaterally. Patient is A&Ox4.) Impression/Plan: Kerri caraballo called. Arrived to evaluate patient who was down on the floor in the bathroom. Fall was unwitnessed by nurse, as the patient was using the restroom. Per patient, she had a bowel movement (nonbloody, non-diarrhea) and proceeded to fall down on her knees, after which she called for help. Patient states that she felt that her legs were weak and she felt dizzy after bowel movement, but she denies hitting her head. When asked about whether she fell forwards or backwards, the patient states she "just fell." Patient denies shortness of breath, pain, and/or nausea. Neurological exam was in tact. Patient was A&Ox4. Patient proceeded to get up and sit in chair with assistance, and she states she felt better after a few minutes. Requested new vitals to be completed by nurse.
[2018-05-12] MEDS: (Novolin R) Insulin Human Regular 100 units/ml vial SC SCH ×3 (07:53→17:30)
[2018-05-12] MEDS: Pantoprazole 40 mg EC Tab PO SCH (08:07)
[2018-05-12 08:51] LABS: BASO % 0.2 % (0.0-2.0); EOS # 0.2 K/uL (0.0-0.7); EOS % 4.2 % (0.0-4.0); HEMOGLOBIN 8.7 g/dL (11.0-16.0); LYMPH # 0.7 K/uL (1.0-4.3); LYMPH % 13.6 % (20.0-40.0); MEAN CELL VOLUME 80.3 fL (81.0-99.0); MEAN CORPUSCULAR HEMOGLOBIN 27.1 pg (27.0-31.0); MEAN CORPUSCULAR HGB CONC 33.7 g/dL (33.0-37.0); MEAN PLATELET VOLUME 8.3 fL (7.2-11.7); MONO # 0.5 K/uL (0.0-0.8); MONO % 9.8 % (0.0-10.0); NEUT # 3.6 K/uL (1.8-7.0); NEUT % 72.2 % (50.0-75.0); RBC 3.2 Mil/uL (3.80-5.20); RED CELL DISTRIBUTION WIDTH 14.4 % (11.5-14.5)
--- NOTE | 2018-05-12 09:07 | RAD ---
Chest x-ray single frontal view History: Congestive heart failure. Comparison: 05/09/2018 Findings: Prominent diffuse increased interstitial lung markings. Biapical pleural thickening with upper lobe granulomatous changes. Bilateral hilar prominence. Right paratracheal prominence may represent prominent vasculature. Small nodular density at the right lung base may represent vessel on end. Patchy increased markings at the left lung base. Enlarged ectatic aorta. Cardiomegaly. Degenerative changes in the spine and shoulders. Calcific tendinopathy of the left proximal humerus. Impression: Prominent diffuse increased interstitial lung markings. Biapical pleural thickening with upper lobe granulomatous changes. Bilateral hilar prominence. Right paratracheal prominence may represent prominent vasculature. Small nodular density at the right lung base may represent vessel on end. Patchy increased markings at the left lung base. Enlarged ectatic aorta. Cardiomegaly.
[2018-05-12 09:27] LABS: ALB/GLOB RATIO 1.2 (1.0-2.1); ALBUMIN 3.3 g/dL (3.5-5.0); CALCIUM 8.3 mg/dl (8.6-10.4)
[2018-05-12] MEDS: Nystatin 100,000 Units/gm Cream(15 gm) TOP SCH ×3 (10:39→18:01)
[2018-05-12] MEDS: POLYETHYLENE GLYCOL 3350 17 GM/Dose PACKET PO SCH (10:40)
--- NOTE | 2018-05-13 01:16 | CP.PCM.PN ---
<Mp Roldan M - Last Filed: 05/13/18 07:01> Subjective - Date & Time of Evaluation Date of Evaluation: 05/13/18 Time of Evaluation: 06:15 - Subjective Subjective: PGY1 Medicine Progress Note for Dr. Gardner Patient was seen and examined at bedside. Patient lying in bed comfortably in no acute distress. Patient currently has no complaints. Patient denies chest pain, SOB, headache, dysuria, nausea, vomiting, fever. Objective - Vital Signs/Intake and Output Vital Signs (last 24 hours): Temp Pulse Resp BP Pulse Ox 98.8 F 76 20 146/65 95 05/12/18 23:35 05/13/18 00:57 05/12/18 23:35 05/13/18 00:57 05/12/18 23:35 Intake and Output: 05/12/18 05/13/18 18:59 06:59 Intake Total 300 Balance 300 - Medications Medications: Current Medications Acetaminophen (Tylenol 325mg Tab) 650 mg PO Q6 PRN PRN Reason: Pain, moderate (4-7) Last Admin: 05/12/18 10:45 Dose: 650 mg Amlodipine Besylate (Norvasc) 5 mg PO DAILY [facility] Last Admin: 05/12/18 10:40 Dose: 5 mg Aspirin (Aspirin Chewable) 81 mg PO DAILY [facility] Last Admin: 05/12/18 10:40 Dose: 81 mg Carvedilol (Coreg) 25 mg PO BID [facility] Last Admin: 05/12/18 18:02 Dose: 25 mg Dextrose (Dextrose 50% Inj) 0 ml IV STAT PRN; Protocol PRN Reason: Hypoglycemia Protocol Dextrose (Glutose 15) 0 gm PO ONCE PRN; Protocol PRN Reason: Hypoglycemia Protocol Docusate Sodium (Colace) 100 mg PO DAILY [facility] Last Admin: 05/12/18 10:40 Dose: 100 mg Furosemide (Lasix) 40 mg PO DAILY [facility] Last Admin: 05/11/18 10:31 Dose: 40 mg Gabapentin (Neurontin) 100 mg PO TID [facility] Last Admin: 05/12/18 18:02 Dose: 100 mg Glucagon (Glucagen Diagnostic Kit) 0 mg IM STAT PRN; Protocol PRN Reason: Hypoglycemia Protocol Heparin Sodium (Porcine) (Heparin) 5,000 units SC Q8 [facility] Last Admin: 05/12/18 22:33 Dose: 5,000 units Hydralazine HCl (Apresoline) 100 mg PO Q8H [facility] Last Admin: 05/13/18 00:59 Dose: 100 mg Hydrocortisone (Cortizone 0.5% Cream) 1 applic TOP BID [facility] Last Admin: 05/12/18 18:01 Dose: 1 appl Dextrose (Dextrose 5% In Water 1000 Ml) 1,000 mls @ 0 mls/hr IV .Q0M PRN; Protocol; Per Protocol PRN Reason: Hypoglycemia Protocol Imipenem/Cilastatin Sodium 500 (mg/ Sodium Chloride) 100 mls @ 100 mls/hr IVPB Q12H [facility] PRN Reason: Protocol Last Admin: 05/13/18 00:59 Dose: 100 mls/hr Insulin Human Regular (Novolin R) 0 unit SC ACHS [facility] PRN Reason: Protocol Last Admin: 05/12/18 17:30 Dose: 2 units Isosorbide Mononitrate (Imdur) 60 mg PO DAILY [facility] Last Admin: 05/12/18 10:40 Dose: 60 mg Nystatin (Mycostatin Cream) 0 ea TOP TID [facility] Last Admin: 05/12/18 18:01 Dose: 1 appl Pantoprazole Sodium (Protonix Ec Tab) 40 mg PO ACB [facility] Last Admin: 05/12/18 08:07 Dose: 40 mg Polyethylene Glycol (Miralax) 17 gm PO DAILY [facility] Last Admin: 05/12/18 10:40 Dose: 17 gm Rosuvastatin Calcium (Crestor) 10 mg PO HS [facility] Last Admin: 05/12/18 22:32 Dose: 10 mg - Labs Labs: 05/12/18 08:32 05/12/18 08:32 PT 12.4 SECONDS (9.7-12.2) H 05/09/18 18:10 INR 1.1 05/09/18 18:10 APTT 29 SECONDS (21-34) 05/09/18 18:10 - Constitutional Appears: Non-toxic, No Acute Distress - Head Exam Head Exam: ATRAUMATIC, NORMAL INSPECTION, NORMOCEPHALIC - Eye Exam Eye Exam: EOMI, Normal appearance Pupil Exam: NORMAL ACCOMODATION - ENT Exam ENT Exam: Mucous Membranes Moist - Neck Exam Neck Exam: Normal Inspection - Respiratory Exam Respiratory Exam: Clear to Ausculation Bilateral, NORMAL BREATHING PATTERN. absent: Rales, Rhonchi, Wheezes - Cardiovascular Exam Cardiovascular Exam: +S1, +S2, Murmur Additional comments: systolic murmur greater on R side than L - GI/Abdominal Exam GI & Abdominal Exam: Soft, Normal Bowel Sounds. absent: Firm, Guarding, Rigid - Extremities Exam Extremities Exam: Normal Inspection. absent: Calf Tenderness - Neurological Exam Neurological Exam: Alert, Awake, Oriented x3 - Psychiatric Exam Psychiatric exam: Normal Affect, Normal Mood - Skin Skin Exam: Normal Color, Warm Assessment and Plan - Assessment and Plan (Free Text) Assessment: Chest pain, resolved - Due to recent clean cardic cath, low suspicion for ischemic etiology. No cardiac consult indicated at this time. - EUGENIA negative x3, NSR, prolonged QTC @ 482, Left axis deviation - CXR 05/12/18: Prominent diffuse increased interstitial lung markings. Biapical pleural thickening with upper lobe granulomatous changes. Bilateral hilar prominence. Right paratracheal prominence may represent prominent vasculature. Small nodular density at the right lung base may represent vessel on end. Patchy increased markings at the left lung base. Enlarged ectatic aorta. Cardiomegaly - CXR 05/09/18: Questionable interval nodular density right perihilar region versus vascular overlap. Follow-up chest CT with contrast is advised for better characterization. No airspace disease, pleural effusion or pneumothorax bilaterally. - Chest CT w/IV contrast 05/09/18: Cardiomegaly, atherosclerotic calcifications of aorta - Stress Test (07/20/17) - Showed defect possibly representing ischemia - Cardiac Cath (07/21/17) - Angiographically normal coronaries and normal LV systolic function - Echo (07/17/17): Grade II diastolic dysfunction; EF 55% - EUGENIA negative x3 Lower abdominal pain - GI consulted (Dr. Tolbert), recommendations appreciated * Recommended outpatient elective endoscopy to evaluate further - Abd/pelvis CT w/PO contrast per report: No acute abdominal or pelvic CT findings. Cirrhotic liver reiterated. Proximal duodenal diverticulum reiterated. Apparent resolution of prior bilateral pleural effusions and pericardial effusion. Cardiomegaly stable. - UA (clean catch): blood 1+, leukocyte glory 3+, WBC/RBC high, epith cells 1 - UA (straight cath): unremarkable except WBC 6, no leuk - Urine culture clean catch: Gram negative rods <10,000 colonies * Patient started on Primaxin 500mg IV Q12 - ED course: received one dose of Zosyn. Acute Kidney Injury likely secondary to contrast received - Elevated BUN=55, Cr=2.4 (increased from 1.4), will f/u w/ AM labs - Discontinued: Lasix 40mg PO daily * Gentle hydration 500cc at 70cc per hour - Monitor History of Diastolic CHF (Type II) - Controlled - BNP 3290 * CXR repeat in AM ordered - Daily weights/monitor intake and output - Continue Home Medications: * Aspirin 81mg PO daily * Coreg 25mg PO BID * Crestor 10mg once at night History of Hypertension - Continue Home Medications: * Norvasc 5mg PO daily * Coreg 25mg PO BID * Hydralazine 100mg PO q8h * Isosorbide Mononitrate 60mg PO daily - Monitor History of Chronic Leg Pain - Continue home medication * Gabapentin 100mg PO TID - Continue Tylenol 650mg Q6 PO for moderate pain Diabetes - ISS mod - Accuchecks - Continue to hold metformin while in the hospital - Hypoglycemia protocol History of anemia - Stable, likely due to chronic disease and low iron - Was seen by heme/onc on last visit Prophylactic measure - Lovenox 40mg SC daily - Pepcid 20mg PO daily - Consistent carb, heart healthy, 2gm sodium diet Dispo: PT evaluated and recommended PT 3-5 x/week for 2 weeks. PT recs will d/w Dr. Kendra Roldan PGY1 <Claudio Gardner H - Last Filed: 05/13/18 09:56> Objective - Vital Signs/Intake and Output Vital Signs (last 24 hours): Temp Pulse Resp BP Pulse Ox 98.6 F 85 18 155/67 H 98 05/13/18 07:40 05/13/18 07:40 05/13/18 07:40 05/13/18 09:09 05/13/18 07:40 Intake and Output: 05/13/18 05/13/18 06:59 18:59 Intake Total 600 Balance 600 - Medications Medications: Current Medications Acetaminophen (Tylenol 325mg Tab) 650 mg PO Q6 PRN PRN Reason: Pain, moderate (4-7) Last Admin: 05/13/18 08:24 Dose: 650 mg Amlodipine Besylate (Norvasc) 5 mg PO DAILY [facility] Last Admin: 09/08/18 09:00 Dose: 5 mg Aspirin (Aspirin Chewable) 81 mg PO DAILY [facility] Last Admin: 05/13/18 09:00 Dose: 81 mg Carvedilol (Coreg) 25 mg PO BID [facility] Last Admin: 05/13/18 09:09 Dose: 25 mg Dextrose (Dextrose 50% Inj) 0 ml IV STAT PRN; Protocol PRN Reason: Hypoglycemia Protocol Dextrose (Glutose 15) 0 gm PO ONCE PRN; Protocol PRN Reason: Hypoglycemia Protocol Docusate Sodium (Colace) 100 mg PO DAILY [facility] Last Admin: 05/12/18 10:40 Dose: 100 mg Furosemide (Lasix) 40 mg PO DAILY [facility] Last Admin: 05/11/18 10:31 Dose: 40 mg Gabapentin (Neurontin) 100 mg PO TID [facility] Last Admin: 05/13/18 09:00 Dose: 100 mg Glucagon (Glucagen Diagnostic Kit) 0 mg IM STAT PRN; Protocol PRN Reason: Hypoglycemia Protocol Heparin Sodium (Porcine) (Heparin) 5,000 units SC Q8 [facility] Last Admin: 05/13/18 05:53 Dose: 5,000 units Hydralazine HCl (Apresoline) 100 mg PO Q8H [facility] Last Admin: 05/13/18 08:07 Dose: 100 mg Hydrocortisone (Cortizone 0.5% Cream) 1 applic TOP BID [facility] Last Admin: 05/13/18 09:01 Dose: 1 appl Dextrose (Dextrose 5% In Water 1000 Ml) 1,000 mls @ 0 mls/hr IV .Q0M PRN; Protocol; Per Protocol PRN Reason: Hypoglycemia Protocol Imipenem/Cilastatin Sodium 500 (mg/ Sodium Chloride) 100 mls @ 100 mls/hr IVPB Q12H [facility] PRN Reason: Protocol Last Admin: 05/13/18 00:59 Dose: 100 mls/hr Sodium Chloride (Sodium Chloride 0.45%) 1,000 mls @ 70 mls/hr IV .[id number] [facility] Last Admin: 05/13/18 09:00 Dose: 70 mls/hr Insulin Human Regular (Novolin R) 0 unit SC ACHS [facility] PRN Reason: Protocol Last Admin: 05/13/18 08:10 Dose: Not Given Isosorbide Mononitrate (Imdur) 60 mg PO DAILY [facility] Last Admin: 05/13/18 09:02 Dose: 60 mg Nystatin (Mycostatin Cream) 0 ea TOP TID [facility] Last Admin: 05/13/18 09:02 Dose: 1 appl Pantoprazole Sodium (Protonix Ec Tab) 40 mg PO ACB [facility] Last Admin: 05/13/18 08:12 Dose: 40 mg Polyethylene Glycol (Miralax) 17 gm PO DAILY [facility] Last Admin: 05/13/18 09:01 Dose: 17 gm Rosuvastatin Calcium (Crestor) 10 mg PO HS [facility] Last Admin: 05/12/18 22:32 Dose: 10 mg - Labs Labs: 05/13/18 07:00 05/13/18 07:00 PT 12.4 SECONDS (9.7-12.2) H 05/09/18 18:10 INR 1.1 05/09/18 18:10 APTT 29 SECONDS (21-34) 05/09/18 18:10 Attending/Attestation - Attestation I have personally seen and examined this patient.: Yes I have fully participated in the care of the patient.: Yes I have reviewed all pertinent clinical information, including history, physical exam and plan: Yes Notes (Text): 05/13/18 09:51 Medical attending: Patient was seen and examined by me. Agree with the above note by the medical charge entry specialist The patient was not in any acute distress when I came and saw her this morning. She was eating an orange peacefully - and when I asked her about pain she remarked that the pain all over her body was present however less than previous. There is an element of dementia as well. The patient has been seen by PT and they remark that they have been able to walk with her 30' but she is unsteady and needs assistance to prevent drifting. She needs a lot of redirecting in the form of visual and verbal commands. Today will recheck a urine culture as she is on IV abx. Claudio Gardner
[2018-05-13 07:23] LABS: BASO % 0.1 % (0.0-2.0); EOS # 0.2 K/uL (0.0-0.7); EOS % 4.4 % (0.0-4.0); HEMOGLOBIN 7.9 g/dL (11.0-16.0); LYMPH # 0.6 K/uL (1.0-4.3); LYMPH % 16.2 % (20.0-40.0); MEAN CELL VOLUME 79.9 fL (81.0-99.0); MEAN CORPUSCULAR HEMOGLOBIN 26.9 pg (27.0-31.0); MEAN CORPUSCULAR HGB CONC 33.7 g/dL (33.0-37.0); MEAN PLATELET VOLUME 8.1 fL (7.2-11.7); MONO # 0.5 K/uL (0.0-0.8); MONO % 13.8 % (0.0-10.0); NEUT # 2.6 K/uL (1.8-7.0); NEUT % 65.5 % (50.0-75.0); NRBC % 0.1 % (0.0-2.0); RBC 2.93 Mil/uL (3.80-5.20); RED CELL DISTRIBUTION WIDTH 14.6 % (11.5-14.5)
[2018-05-13 07:35] LABS: ALB/GLOB RATIO 1.2 (1.0-2.1); ALBUMIN 3.1 g/dL (3.5-5.0); CALCIUM 8.2 mg/dl (8.6-10.4)
[2018-05-13] MEDS: (Novolin R) Insulin Human Regular 100 units/ml vial SC SCH ×5 (08:10→22:01)
[2018-05-13] MEDS: Pantoprazole 40 mg EC Tab PO SCH (08:12)
[2018-05-13] MEDS: Sodium Chloride 0.45% 1,000 ML IV SCH ×2 (09:00→22:21)
[2018-05-13] MEDS: POLYETHYLENE GLYCOL 3350 17 GM/Dose PACKET PO SCH (09:01)
[2018-05-13] MEDS: Nystatin 100,000 Units/gm Cream(15 gm) TOP SCH ×3 (09:02→18:33)
--- NOTE | 2018-05-14 02:30 | CP.PCM.PN ---
Subjective - Subjective Subjective: PGY1 Medicine Progress Note for Dr. Gardner Patient was seen and examined at bedside. Patient lying in bed comfortably in no acute distress. Patient states that she currently has no complaints. Patient denies chest pain, SOB, headache, dysuria, nausea, vomiting, fever. Objective - Vital Signs/Intake and Output Vital Signs (last 24 hours): Temp Pulse Resp BP Pulse Ox 100.3 F H 93 H 20 160/63 H 92 L 05/14/18 00:53 05/14/18 00:41 05/13/18 23:10 05/14/18 00:41 05/14/18 00:41 Intake and Output: 05/13/18 05/14/18 18:59 06:59 Intake Total 200 Balance 200 - Medications Medications: Current Medications Acetaminophen (Tylenol 325mg Tab) 650 mg PO Q6 PRN PRN Reason: Pain, moderate (4-7) Last Admin: 05/14/18 00:53 Dose: 650 mg Amlodipine Besylate (Norvasc) 5 mg PO DAILY [facility] Last Admin: 05/13/18 09:00 Dose: 5 mg Aspirin (Aspirin Chewable) 81 mg PO DAILY [facility] Last Admin: 05/13/18 09:00 Dose: 81 mg Carvedilol (Coreg) 25 mg PO BID [facility] Last Admin: 05/13/18 18:32 Dose: 25 mg Dextrose (Dextrose 50% Inj) 0 ml IV STAT PRN; Protocol PRN Reason: Hypoglycemia Protocol Dextrose (Glutose 15) 0 gm PO ONCE PRN; Protocol PRN Reason: Hypoglycemia Protocol Docusate Sodium (Colace) 100 mg PO DAILY [facility] Last Admin: 05/13/18 10:00 Dose: 100 mg Furosemide (Lasix) 40 mg PO DAILY [facility] Last Admin: 05/11/18 10:31 Dose: 40 mg Gabapentin (Neurontin) 100 mg PO TID [facility] Last Admin: 05/13/18 18:32 Dose: 100 mg Glucagon (Glucagen Diagnostic Kit) 0 mg IM STAT PRN; Protocol PRN Reason: Hypoglycemia Protocol Heparin Sodium (Porcine) (Heparin) 5,000 units SC Q8 [facility] Last Admin: 05/13/18 21:14 Dose: 5,000 units Hydralazine HCl (Apresoline) 100 mg PO Q8H [facility] Last Admin: 05/14/18 00:53 Dose: 100 mg Hydrocortisone (Cortizone 0.5% Cream) 1 applic TOP BID [facility] Last Admin: 05/13/18 18:33 Dose: 1 appl Dextrose (Dextrose 5% In Water 1000 Ml) 1,000 mls @ 0 mls/hr IV .Q0M PRN; Protocol; Per Protocol PRN Reason: Hypoglycemia Protocol Imipenem/Cilastatin Sodium 500 (mg/ Sodium Chloride) 100 mls @ 100 mls/hr IVPB Q12H [facility] PRN Reason: Protocol Last Admin: 05/14/18 00:54 Dose: 100 mls/hr Sodium Chloride (Sodium Chloride 0.45%) 1,000 mls @ 70 mls/hr IV .[id number] [facility] Last Admin: 05/13/18 22:21 Dose: 70 mls/hr Insulin Human Regular (Novolin R) 0 unit SC ACHS [facility] PRN Reason: Protocol Last Admin: 05/13/18 22:01 Dose: Not Given Isosorbide Mononitrate (Imdur) 60 mg PO DAILY [facility] Last Admin: 05/13/18 09:02 Dose: 60 mg Nystatin (Mycostatin Cream) 0 ea TOP TID [facility] Last Admin: 05/13/18 18:33 Dose: 1 appl Pantoprazole Sodium (Protonix Ec Tab) 40 mg PO ACB [facility] Last Admin: 05/13/18 08:12 Dose: 40 mg Polyethylene Glycol (Miralax) 17 gm PO DAILY [facility] Last Admin: 05/13/18 09:01 Dose: 17 gm Rosuvastatin Calcium (Crestor) 10 mg PO HS [facility] Last Admin: 05/13/18 21:14 Dose: 10 mg - Labs Labs: 05/13/18 07:00 05/13/18 07:00 PT 12.4 SECONDS (9.7-12.2) H 05/09/18 18:10 INR 1.1 05/09/18 18:10 APTT 29 SECONDS (21-34) 05/09/18 18:10 - Constitutional Appears: Non-toxic, No Acute Distress - Head Exam Head Exam: ATRAUMATIC, NORMAL INSPECTION, NORMOCEPHALIC - Eye Exam Eye Exam: EOMI, Normal appearance Pupil Exam: NORMAL ACCOMODATION - ENT Exam ENT Exam: Mucous Membranes Moist - Neck Exam Neck Exam: Normal Inspection - Respiratory Exam Respiratory Exam: Clear to Ausculation Bilateral, NORMAL BREATHING PATTERN - Cardiovascular Exam Cardiovascular Exam: +S1, +S2. absent: Irregular Rhythm, Murmur - GI/Abdominal Exam GI & Abdominal Exam: Soft, Normal Bowel Sounds. absent: Firm, Guarding, Rigid - Extremities Exam Extremities Exam: Normal Inspection - Neurological Exam Neurological Exam: Alert, Awake, Oriented x3 - Psychiatric Exam Psychiatric exam: Normal Affect, Normal Mood - Skin Skin Exam: Dry, Intact, Normal Color, Warm Assessment and Plan - Assessment and Plan (Free Text) Assessment: Chest pain, resolved - Due to recent clean cardic cath, low suspicion for ischemic etiology. No cardiac consult indicated at this time. - EUGENIA negative x3, NSR, prolonged QTC @ 482, Left axis deviation - CXR 05/12/18: Prominent diffuse increased interstitial lung markings. Biapical pleural thickening with upper lobe granulomatous changes. Bilateral hilar prominence. Right paratracheal prominence may represent prominent vasculature. Small nodular density at the right lung base may represent vessel on end. Patchy increased markings at the left lung base. Enlarged ectatic aorta. Cardiomegaly - CXR 05/09/18: Questionable interval nodular density right perihilar region versus vascular overlap. Follow-up chest CT with contrast is advised for better characterization. No airspace disease, pleural effusion or pneumothorax bilaterally. - Chest CT w/IV contrast 05/09/18: Cardiomegaly, atherosclerotic calcifications of aorta - Stress Test (07/20/17) - Showed defect possibly representing ischemia - Cardiac Cath (07/21/17) - Angiographically normal coronaries and normal LV systolic function - Echo (07/17/17): Grade II diastolic dysfunction; EF 55% - EUGENIA negative x3 Lower abdominal pain - GI consulted (Dr. Tolbert), recommendations appreciated * Recommended outpatient elective endoscopy to evaluate further - Abd/pelvis CT w/PO contrast per report: No acute abdominal or pelvic CT findings. Cirrhotic liver reiterated. Proximal duodenal diverticulum reiterated. Apparent resolution of prior bilateral pleural effusions and pericardial effusion. Cardiomegaly stable. - UA (clean catch): blood 1+, leukocyte glory 3+, WBC/RBC high, epith cells 1 - UA (straight cath): unremarkable except WBC 6, no leuk - Urine culture clean catch: Gram negative rods <10,000 colonies * Patient started on Primaxin 500mg IV Q12 - ED course: received one dose of Zosyn. Acute Kidney Injury likely secondary to contrast received - Elevated BUN=63, Cr=2.4 (on 05/13) (increased from 1.4), will f/u w/ AM labs - Discontinued: Lasix 40mg PO daily * Gentle hydration 500cc at 70cc per hour - Monitor History of Diastolic CHF (Type II) - Controlled - BNP 3290 * CXR repeat in AM ordered - Daily weights/monitor intake and output - Continue Home Medications: * Aspirin 81mg PO daily * Coreg 25mg PO BID * Crestor 10mg once at night History of Hypertension - Continue Home Medications: * Norvasc 5mg PO daily * Coreg 25mg PO BID * Hydralazine 100mg PO q8h * Isosorbide Mononitrate 60mg PO daily - Monitor History of Chronic Leg Pain - Continue home medication * Gabapentin 100mg PO TID - Continue Tylenol 650mg Q6 PO for moderate pain Diabetes - ISS mod - Accuchecks - Continue to hold metformin while in the hospital - Hypoglycemia protocol History of anemia - Stable, likely due to chronic disease and low iron - Was seen by heme/onc on last visit Prophylactic measure - Lovenox 40mg SC daily - Pepcid 20mg PO daily - Consistent carb, heart healthy, 2gm sodium diet Dispo: PT evaluated and recommended PT 3-5 x/week for 2 weeks. PT recs SAR. britt d/w Dr. Kendra Roldan PGY1
--- NOTE | 2018-05-14 07:44 | CP.PCM.PN ---
<Lashay Carlin - Last Filed: 05/14/18 10:23> Subjective - Date & Time of Evaluation Date of Evaluation: 05/14/18 Time of Evaluation: 08:00 - Subjective Subjective: PGY3 Medicine Progress Note for Dr. Gardner: Patient was seen and examined at bedside. Patient lying in bed comfortably in no acute distress. Patient states that she currently has no new complaints, but still complaints of mild sie and abdominal pain. This pain has not changed on her admission. Patient denies chest pain, SOB, headache, dysuria, nausea, vomiting, fever. Objective - Vital Signs/Intake and Output Vital Signs (last 24 hours): Temp Pulse Resp BP Pulse Ox 98.1 F 93 H 20 160/63 H 92 L 05/14/18 05:16 05/14/18 00:41 05/13/18 23:10 05/14/18 00:41 05/14/18 00:41 Intake and Output: 05/14/18 05/14/18 06:59 18:59 Intake Total 200 Balance 200 - Medications Medications: Current Medications Acetaminophen (Tylenol 325mg Tab) 650 mg PO Q6 PRN PRN Reason: Pain, moderate (4-7) Last Admin: 05/14/18 00:53 Dose: 650 mg Amlodipine Besylate (Norvasc) 5 mg PO DAILY [facility] Last Admin: 05/13/18 09:00 Dose: 5 mg Aspirin (Aspirin Chewable) 81 mg PO DAILY [facility] Last Admin: 05/13/18 09:00 Dose: 81 mg Carvedilol (Coreg) 25 mg PO BID [facility] Last Admin: 05/13/18 18:32 Dose: 25 mg Dextrose (Dextrose 50% Inj) 0 ml IV STAT PRN; Protocol PRN Reason: Hypoglycemia Protocol Dextrose (Glutose 15) 0 gm PO ONCE PRN; Protocol PRN Reason: Hypoglycemia Protocol Docusate Sodium (Colace) 100 mg PO DAILY [facility] Last Admin: 05/13/18 10:00 Dose: 100 mg Furosemide (Lasix) 40 mg PO DAILY [facility] Last Admin: 05/11/18 10:31 Dose: 40 mg Gabapentin (Neurontin) 100 mg PO TID [facility] Last Admin: 05/13/18 18:32 Dose: 100 mg Glucagon (Glucagen Diagnostic Kit) 0 mg IM STAT PRN; Protocol PRN Reason: Hypoglycemia Protocol Heparin Sodium (Porcine) (Heparin) 5,000 units SC Q8 [facility] Last Admin: 05/14/18 05:17 Dose: 5,000 units Hydralazine HCl (Apresoline) 100 mg PO Q8H [facility] Last Admin: 05/14/18 00:53 Dose: 100 mg Hydrocortisone (Cortizone 0.5% Cream) 1 applic TOP BID [facility] Last Admin: 05/13/18 18:33 Dose: 1 appl Dextrose (Dextrose 5% In Water 1000 Ml) 1,000 mls @ 0 mls/hr IV .Q0M PRN; Protocol; Per Protocol PRN Reason: Hypoglycemia Protocol Imipenem/Cilastatin Sodium 500 (mg/ Sodium Chloride) 100 mls @ 100 mls/hr IVPB Q12H [facility] PRN Reason: Protocol Last Admin: 05/14/18 00:54 Dose: 100 mls/hr Sodium Chloride (Sodium Chloride 0.45%) 1,000 mls @ 70 mls/hr IV .[id number] [facility] Last Admin: 05/13/18 22:21 Dose: 70 mls/hr Insulin Human Regular (Novolin R) 0 unit SC ACHS [facility] PRN Reason: Protocol Last Admin: 05/13/18 22:01 Dose: Not Given Isosorbide Mononitrate (Imdur) 60 mg PO DAILY [facility] Last Admin: 05/13/18 09:02 Dose: 60 mg Nystatin (Mycostatin Cream) 0 ea TOP TID [facility] Last Admin: 05/13/18 18:33 Dose: 1 appl Pantoprazole Sodium (Protonix Ec Tab) 40 mg PO ACB [facility] Last Admin: 05/13/18 08:12 Dose: 40 mg Polyethylene Glycol (Miralax) 17 gm PO DAILY [facility] Last Admin: 05/13/18 09:01 Dose: 17 gm Rosuvastatin Calcium (Crestor) 10 mg PO HS [facility] Last Admin: 05/13/18 21:14 Dose: 10 mg - Labs Labs: 05/13/18 07:00 05/13/18 07:00 PT 12.4 SECONDS (9.7-12.2) H 05/09/18 18:10 INR 1.1 05/09/18 18:10 APTT 29 SECONDS (21-34) 05/09/18 18:10 - Constitutional Appears: Non-toxic, No Acute Distress - Head Exam Head Exam: ATRAUMATIC, NORMAL INSPECTION - Eye Exam Eye Exam: EOMI, PERRL Pupil Exam: NORMAL ACCOMODATION - ENT Exam ENT Exam: Mucous Membranes Moist - Neck Exam Neck Exam: Normal Inspection - Respiratory Exam Respiratory Exam: Clear to Ausculation Bilateral, NORMAL BREATHING PATTERN. absent: Respiratory Distress - Cardiovascular Exam Cardiovascular Exam: +S1, +S2, Murmur Additional comments: systolic murmur greater on R side than L - GI/Abdominal Exam GI & Abdominal Exam: Distended, Soft, Normal Bowel Sounds. absent: Firm, Guarding, Tenderness - Extremities Exam Extremities Exam: Normal Inspection - Back Exam Back Exam: CVA tenderness (L), NORMAL INSPECTION. absent: CVA tenderness (R), paraspinal tenderness - Neurological Exam Neurological Exam: Alert, Awake, Oriented x3 - Psychiatric Exam Psychiatric exam: Normal Affect, Normal Mood - Skin Skin Exam: Normal Color Assessment and Plan - Assessment and Plan (Free Text) Assessment: Urinary Tract Infection - f/u repeat urine culture 05/14 - Continue Primaxin 500mg IV Q12 (started 05/11) - UA 05/09(clean catch): blood 1+, leukocyte glory 3+, WBC/RBC high, epith cells 1 - UA 05/10 (straight cath): unremarkable except WBC 6, no leuk - Urine culture clean catch: Gram negative rods <10,000 colonies Acute Kidney Injury likely secondary to contrast received - Cr improving/downtrending - Lasix 40mg PO daily - on hold * Gentle hydration 500cc at 70cc per hour Chest pain, resolved - Due to recent clean cardiac cath, low suspicion for ischemic etiology. No cardiac consult indicated at this time. - EUGENIA negative x3, NSR, prolonged QTC @ 482, Left axis deviation - CXR 05/12/18: Prominent diffuse increased interstitial lung markings. Biapical pleural thickening with upper lobe granulomatous changes. Bilateral hilar prominence. Right paratracheal prominence may represent prominent vasculature. Small nodular density at the right lung base may represent vessel on end. Patchy increased markings at the left lung base. Enlarged ectatic aorta. Cardiomegaly - CXR 05/09/18: Questionable interval nodular density right perihilar region versus vascular overlap. Follow-up chest CT with contrast is advised for better characterization. No airspace disease, pleural effusion or pneumothorax bilaterally. - Chest CT w/IV contrast 05/09/18: Cardiomegaly, atherosclerotic calcifications of aorta - Stress Test (07/20/17) - Showed defect possibly representing ischemia - Cardiac Cath (07/21/17) - Angiographically normal coronaries and normal LV systolic function - Echo (07/17/17): Grade II diastolic dysfunction; EF 55% - EUGENIA negative x3 Lower abdominal pain - GI consulted (Dr. Tolbert), recommendations appreciated * Recommended outpatient elective endoscopy to evaluate further - Abd/pelvis CT w/PO contrast per report: No acute abdominal or pelvic CT findings. Cirrhotic liver reiterated. Proximal duodenal diverticulum reiterated. Apparent resolution of prior bilateral pleural effusions and pericardial effusion. Cardiomegaly stable. - ED course: received one dose of Zosyn. History of Diastolic CHF (Type II) - Controlled - BNP 3290 - Daily weights/monitor intake and output - Continue Home Medications: * Aspirin 81mg PO daily * Coreg 25mg PO BID * Crestor 10mg once at night * Lasix - on hold due to JACQUES secondary to contrast Hypertension - Continue Home Medications: * Norvasc 5mg PO daily * Coreg 25mg PO BID * Hydralazine 100mg PO q8h * Isosorbide Mononitrate 60mg PO daily Chronic Leg Pain - Continue home medication * Gabapentin 100mg PO TID - Continue Tylenol 650mg Q6 PO for moderate pain Diabetes - ISS medium - Accuchecks - Continue to hold metformin while in the hospital - Hypoglycemia protocol History of anemia - Stable, likely due to chronic disease and low iron - Was seen by heme/onc on last visit Prophylactic measure - Lovenox 40mg SC daily - Pepcid 20mg PO daily - Consistent carb, heart healthy, 2gm sodium diet Dispo: PT evaluated and recommended PT 3-5 x/week for 2 weeks. PT recs [facility] yet patient unable to go due to dylan care. Will need to continue to work with PT. <Claudio Gardner H - Last Filed: 05/14/18 10:55> Objective - Vital Signs/Intake and Output Vital Signs (last 24 hours): Temp Pulse Resp BP Pulse Ox 98.0 F 82 20 162/71 H 98 05/14/18 09:14 05/14/18 09:14 05/14/18 09:14 05/14/18 09:14 05/14/18 09:14 Intake and Output: 05/14/18 05/14/18 06:59 18:59 Intake Total 200 Balance 200 - Medications Medications: Current Medications Acetaminophen (Tylenol 325mg Tab) 650 mg PO Q6 PRN PRN Reason: Pain, moderate (4-7) Last Admin: 05/14/18 00:53 Dose: 650 mg Amlodipine Besylate (Norvasc) 5 mg PO DAILY [facility] Last Admin: 05/13/18 09:00 Dose: 5 mg Aspirin (Aspirin Chewable) 81 mg PO DAILY [facility] Last Admin: 05/13/18 09:00 Dose: 81 mg Carvedilol (Coreg) 25 mg PO BID [facility] Last Admin: 05/13/18 18:32 Dose: 25 mg Dextrose (Dextrose 50% Inj) 0 ml IV STAT PRN; Protocol PRN Reason: Hypoglycemia Protocol Dextrose (Glutose 15) 0 gm PO ONCE PRN; Protocol PRN Reason: Hypoglycemia Protocol Docusate Sodium (Colace) 100 mg PO DAILY [facility] Last Admin: 05/13/18 10:00 Dose: 100 mg Furosemide (Lasix) 40 mg PO DAILY [facility] Last Admin: 05/11/18 10:31 Dose: 40 mg Gabapentin (Neurontin) 100 mg PO TID [facility] Last Admin: 05/13/18 18:32 Dose: 100 mg Glucagon (Glucagen Diagnostic Kit) 0 mg IM STAT PRN; Protocol PRN Reason: Hypoglycemia Protocol Heparin Sodium (Porcine) (Heparin) 5,000 units SC Q8 [facility] Last Admin: 05/14/18 05:17 Dose: 5,000 units Hydralazine HCl (Apresoline) 100 mg PO Q8H [facility] Last Admin: 05/14/18 00:53 Dose: 100 mg Hydrocortisone (Cortizone 0.5% Cream) 1 applic TOP BID [facility] Last Admin: 05/13/18 18:33 Dose: 1 appl Dextrose (Dextrose 5% In Water 1000 Ml) 1,000 mls @ 0 mls/hr IV .Q0M PRN; Protocol; Per Protocol PRN Reason: Hypoglycemia Protocol Imipenem/Cilastatin Sodium 500 (mg/ Sodium Chloride) 100 mls @ 100 mls/hr IVPB Q12H [facility] PRN Reason: Protocol Last Admin: 05/14/18 00:54 Dose: 100 mls/hr Sodium Chloride (Sodium Chloride 0.45%) 1,000 mls @ 70 mls/hr IV .[id number] [facility] Last Admin: 05/13/18 22:21 Dose: 70 mls/hr Insulin Human Regular (Novolin R) 0 unit SC ACHS [facility] PRN Reason: Protocol Last Admin: 05/13/18 22:01 Dose: Not Given Isosorbide Mononitrate (Imdur) 60 mg PO DAILY [facility] Last Admin: 05/13/18 09:02 Dose: 60 mg Nystatin (Mycostatin Cream) 0 ea TOP TID [facility] Last Admin: 05/13/18 18:33 Dose: 1 appl Pantoprazole Sodium (Protonix Ec Tab) 40 mg PO ACB [facility] Last Admin: 05/13/18 08:12 Dose: 40 mg Polyethylene Glycol (Miralax) 17 gm PO DAILY [facility] Last Admin: 05/13/18 09:01 Dose: 17 gm Rosuvastatin Calcium (Crestor) 10 mg PO HS [facility] Last Admin: 05/13/18 21:14 Dose: 10 mg - Labs Labs: 05/14/18 08:05 05/14/18 08:05 PT 12.4 SECONDS (9.7-12.2) H 05/09/18 18:10 INR 1.1 05/09/18 18:10 APTT 29 SECONDS (21-34) 05/09/18 18:10 Attending/Attestation - Attestation I have personally seen and examined this patient.: Yes I have fully participated in the care of the patient.: Yes I have reviewed all pertinent clinical information, including history, physical exam and plan: Yes Notes (Text): 05/14/18 10:55 Medical attending: Patient was seen and examined by me, reviewed the above note by the medical laboratory technician and agree with the above note Today work in a repeat urine culture, she remains on IV antibiotics at this time if the culture is negative should stop the antibiotics. Also she remains on the intravenous fluids as well, the BUN and creatinine still remains elevated but it is coming down As mentioned previously the patient continues to report having generalized pain all over her body. In particular her abdomen. This being said she has been having bowel movements and she has been tolerating her diet as well. Patient does stand and walk however her gait is very unsteady, according to PT she would benefit from going to subacute rehabilitation after this however as mentioned previously as well the patient does not have the means to go to [facility] Thank you very much, Claudio Gardner
[2018-05-14] MEDS: (Novolin R) Insulin Human Regular 100 units/ml vial SC SCH ×4 (08:00→21:57)
[2018-05-14 08:17] LABS: BASO % 0.1 % (0.0-2.0); EOS # 0.3 K/uL (0.0-0.7); EOS % 5.5 % (0.0-4.0); HEMOGLOBIN 8.7 g/dL (11.0-16.0); LYMPH # 0.8 K/uL (1.0-4.3); LYMPH % 15.7 % (20.0-40.0); MEAN CORPUSCULAR HGB CONC 33.7 g/dL (33.0-37.0); MEAN PLATELET VOLUME 8.1 fL (7.2-11.7); MONO # 0.5 K/uL (0.0-0.8); MONO % 10.8 % (0.0-10.0); NEUT # 3.3 K/uL (1.8-7.0); NEUT % 67.9 % (50.0-75.0); RBC 3.21 Mil/uL (3.80-5.20); RED CELL DISTRIBUTION WIDTH 14.4 % (11.5-14.5); WHITE BLOOD COUNT 4.8 K/uL (4.8-10.8)
[2018-05-14 08:34] LABS: ALB/GLOB RATIO 1.1 (1.0-2.1); ALBUMIN 3.4 g/dL (3.5-5.0); CALCIUM 8.2 mg/dl (8.6-10.4)
[2018-05-14] MEDS: Nystatin 100,000 Units/gm Cream(15 gm) TOP SCH ×3 (10:00→18:15)
[2018-05-14] MEDS: Pantoprazole 40 mg EC Tab PO SCH (11:59)
[2018-05-14] MEDS: POLYETHYLENE GLYCOL 3350 17 GM/Dose PACKET PO SCH (12:04)
[2018-05-14] MEDS: Sodium Chloride 0.45% 1,000 ML IV SCH ×2 (14:12→22:25)
[2018-05-15 06:31] LABS: BASO % 0.2 % (0.0-2.0); EOS # 0.3 K/uL (0.0-0.7); EOS % 4.6 % (0.0-4.0); HEMOGLOBIN 8.2 g/dL (11.0-16.0); LYMPH # 0.9 K/uL (1.0-4.3); MEAN CELL VOLUME 80.1 fL (81.0-99.0); MEAN CORPUSCULAR HEMOGLOBIN 26.3 pg (27.0-31.0); MEAN CORPUSCULAR HGB CONC 32.8 g/dL (33.0-37.0); MEAN PLATELET VOLUME 7.8 fL (7.2-11.7); MONO # 0.8 K/uL (0.0-0.8); MONO % 13.5 % (0.0-10.0); NEUT # 3.9 K/uL (1.8-7.0); NEUT % 65.7 % (50.0-75.0); RBC 3.11 Mil/uL (3.80-5.20); RED CELL DISTRIBUTION WIDTH 14.5 % (11.5-14.5); WHITE BLOOD COUNT 5.9 K/uL (4.8-10.8)
[2018-05-15 06:56] LABS: ALB/GLOB RATIO 1.1 (1.0-2.1); ALBUMIN 3.3 g/dL (3.5-5.0); CALCIUM 8.3 mg/dl (8.6-10.4)
--- NOTE | 2018-05-15 07:38 | CP.PCM.PN ---
<Mick Longoria - Last Filed: 05/15/18 10:59> Subjective - Date & Time of Evaluation Date of Evaluation: 05/15/18 Time of Evaluation: 07:35 - Subjective Subjective: PGY1 Medicine Progress Note for Dr. Drake Patient was seen and examined at bedside. Patient lying in bed comfortably in no acute distress. Patient states that she currently has no new complaints, but still complains of "pain all over" her body. Of note, the pain has not changed since her admission. Patient admits to continued burning with urination and frequency, but denies hematuria. Furthermore, patient admits to pruritus. When asked to localize where it is itchy, the patient states "all over" and points to her whole body. Patient denies SOB, headache, nausea, vomiting, fever, chills , and/or headache. Objective - Vital Signs/Intake and Output Vital Signs (last 24 hours): Temp Pulse Resp BP Pulse Ox 98.3 F 87 18 166/76 H 95 05/15/18 00:36 05/15/18 00:36 05/15/18 00:36 05/15/18 00:36 05/15/18 00:36 Intake and Output: 05/15/18 05/15/18 06:59 18:59 Intake Total 250 Balance 250 - Medications Medications: Current Medications Acetaminophen (Tylenol 325mg Tab) 650 mg PO Q6 PRN PRN Reason: Pain, moderate (4-7) Last Admin: 05/14/18 11:55 Dose: 650 mg Amlodipine Besylate (Norvasc) 5 mg PO DAILY [facility] Last Admin: 05/14/18 11:55 Dose: 5 mg Aspirin (Aspirin Chewable) 81 mg PO DAILY [facility] Last Admin: 05/14/18 11:55 Dose: 81 mg Carvedilol (Coreg) 25 mg PO BID [facility] Last Admin: 05/14/18 18:17 Dose: 25 mg Dextrose (Dextrose 50% Inj) 0 ml IV STAT PRN; Protocol PRN Reason: Hypoglycemia Protocol Dextrose (Glutose 15) 0 gm PO ONCE PRN; Protocol PRN Reason: Hypoglycemia Protocol Docusate Sodium (Colace) 100 mg PO DAILY [facility] Last Admin: 05/14/18 12:45 Dose: 100 mg Furosemide (Lasix) 40 mg PO DAILY [facility] Last Admin: 09/06/18 10:31 Dose: 40 mg Gabapentin (Neurontin) 100 mg PO TID [facility] Last Admin: 05/14/18 18:16 Dose: 100 mg Glucagon (Glucagen Diagnostic Kit) 0 mg IM STAT PRN; Protocol PRN Reason: Hypoglycemia Protocol Heparin Sodium (Porcine) (Heparin) 5,000 units SC Q8 [facility] Last Admin: 05/15/18 05:17 Dose: Not Given Hydralazine HCl (Apresoline) 100 mg PO Q8H [facility] Last Admin: 05/15/18 00:40 Dose: 100 mg Hydrocortisone (Cortizone 0.5% Cream) 1 applic TOP BID [facility] Last Admin: 05/14/18 18:16 Dose: 1 appl Dextrose (Dextrose 5% In Water 1000 Ml) 1,000 mls @ 0 mls/hr IV .Q0M PRN; Protocol; Per Protocol PRN Reason: Hypoglycemia Protocol Imipenem/Cilastatin Sodium 500 (mg/ Sodium Chloride) 100 mls @ 100 mls/hr IVPB Q12H [facility] PRN Reason: Protocol Last Admin: 05/15/18 00:39 Dose: 100 mls/hr Sodium Chloride (Sodium Chloride 0.45%) 1,000 mls @ 70 mls/hr IV .[id number] [facility] Last Admin: 05/14/18 22:25 Dose: 70 mls/hr Insulin Human Regular (Novolin R) 0 unit SC ACHS [facility] PRN Reason: Protocol Last Admin: 05/14/18 21:57 Dose: Not Given Isosorbide Mononitrate (Imdur) 60 mg PO DAILY [facility] Last Admin: 05/14/18 11:55 Dose: 60 mg Nystatin (Mycostatin Cream) 0 ea TOP TID [facility] Last Admin: 05/14/18 18:15 Dose: 1 appl Pantoprazole Sodium (Protonix Ec Tab) 40 mg PO ACB [facility] Last Admin: 05/14/18 11:59 Dose: 40 mg Polyethylene Glycol (Miralax) 17 gm PO DAILY [facility] Last Admin: 05/14/18 12:04 Dose: 17 gm Rosuvastatin Calcium (Crestor) 10 mg PO HS [facility] Last Admin: 05/14/18 22:25 Dose: 10 mg - Labs Labs: 05/15/18 06:15 05/15/18 06:15 PT 12.4 SECONDS (9.7-12.2) H 05/09/18 18:10 INR 1.1 05/09/18 18:10 APTT 29 SECONDS (21-34) 05/09/18 18:10 - Additional Findings Additional findings: - Constitutional Appears: Non-toxic, No Acute Distress - Head Exam Head Exam: ATRAUMATIC, NORMAL INSPECTION - Eye Exam Eye Exam: EOMI, PERRL Pupil Exam: NORMAL ACCOMODATION - ENT Exam ENT Exam: Mucous Membranes Moist - Neck Exam Neck Exam: Normal Inspection - Respiratory Exam Respiratory Exam: Clear to Ausculation Bilateral, NORMAL BREATHING PATTERN. absent: Respiratory Distress - Cardiovascular Exam Cardiovascular Exam: Regular Rate, +S1, +S2, Murmur Additional comments: systolic murmur greater on R side than L - GI/Abdominal Exam GI & Abdominal Exam: Distended, Soft, Normal Bowel Sounds. absent: Firm, Guarding, Tenderness - Extremities Exam Extremities Exam: Normal Inspection - Back Exam Back Exam: CVA tenderness (L), NORMAL INSPECTION. absent: CVA tenderness (R), paraspinal tenderness - Neurological Exam Neurological Exam: Alert, Awake, Oriented x3 - Psychiatric Exam Psychiatric exam: Normal Affect, Normal Mood - Skin Skin Exam: Normal Color. Bilateral between groin folds extending down to medial thighs: Karen-pink colored macular patches with satellite lesions at edge Assessment and Plan - Assessment and Plan (Free Text) Assessment: Assessment & Plan Urinary Tract Infection - f/u repeat urine culture from 05/14 pending - Continue Primaxin 500mg IV Q12 (started 05/11) - UA 05/09(clean catch): blood 1+, leukocyte glory 3+, WBC/RBC high, epith cells 1 - UA 05/10 (straight cath): unremarkable except WBC 6, no leuk - Urine culture clean catch: Gram negative rods <10,000 colonies Acute Kidney Injury likely secondary to contrast received - Cr improving/downtrending - Lasix 40mg PO daily - on hold * Gentle hydration 500cc at 70cc per hour Chest pain, resolved - Due to recent clean cardiac cath, low suspicion for ischemic etiology. No cardiac consult indicated at this time. - EUGENIA negative x3, NSR, prolonged QTC @ 482, Left axis deviation - CXR 05/12/18: Prominent diffuse increased interstitial lung markings. Biapical pleural thickening with upper lobe granulomatous changes. Bilateral hilar prominence. Right paratracheal prominence may represent prominent vasculature. Small nodular density at the right lung base may represent vessel on end. Patchy increased markings at the left lung base. Enlarged ectatic aorta. Cardiomegaly - CXR 05/09/18: Questionable interval nodular density right perihilar region versus vascular overlap. Follow-up chest CT with contrast is advised for better characterization. No airspace disease, pleural effusion or pneumothorax bilaterally. - Chest CT w/IV contrast 05/09/18: Cardiomegaly, atherosclerotic calcifications of aorta - Stress Test (07/20/17) - Showed defect possibly representing ischemia - Cardiac Cath (07/21/17) - Angiographically normal coronaries and normal LV systolic function - Echo (07/17/17): Grade II diastolic dysfunction; EF 55% - EUGENIA negative x3 Lower abdominal pain - GI consulted (Dr. Tolbert), recommendations appreciated * Recommended outpatient elective endoscopy to evaluate further - Abd/pelvis CT w/PO contrast per report: No acute abdominal or pelvic CT findings. Cirrhotic liver reiterated. Proximal duodenal diverticulum reiterated. Apparent resolution of prior bilateral pleural effusions and pericardial effusion. Cardiomegaly stable. - ED course: received one dose of Zosyn. History of Diastolic CHF (Type II) - Controlled - BNP 3290 - Daily weights/monitor intake and output - Continue Home Medications: * Aspirin 81mg PO daily * Coreg 25mg PO BID * Crestor 10mg once at night * Lasix - on hold due to JACQUES secondary to contrast Hypertension - Continue Home Medications: * Norvasc 5mg PO daily * Coreg 25mg PO BID * Hydralazine 100mg PO q8h * Isosorbide Mononitrate 60mg PO daily Chronic Leg Pain - Continue home medication * Gabapentin 100mg PO TID - Continue Tylenol 650mg Q6 PO for moderate pain Diabetes - ISS medium - Accuchecks - Continue to hold metformin while in the hospital - Hypoglycemia protocol History of anemia - Stable, likely due to chronic disease and low iron - Was seen by heme/onc on last visit Prophylactic measure - Lovenox 40mg SC daily - Pepcid 20mg PO daily - Consistent carb, heart healthy, 2gm sodium diet Dispo: PT evaluated and recommended PT 3-5 x/week for 2 weeks. PT recs [facility] yet patient unable to go due to dylan care. Will need to continue to work with PT. <Griffin Painting - Last Filed: 05/15/18 14:01> Objective - Vital Signs/Intake and Output Vital Signs (last 24 hours): Temp Pulse Resp BP Pulse Ox 98 F 90 20 174/70 H 96 05/15/18 09:58 05/15/18 09:58 05/15/18 09:58 05/15/18 10:57 05/15/18 09:58 Intake and Output: 05/15/18 05/15/18 06:59 18:59 Intake Total 250 Balance 250 - Medications Medications: Current Medications Acetaminophen (Tylenol 325mg Tab) 650 mg PO Q6 PRN PRN Reason: Pain, moderate (4-7) Last Admin: 05/14/18 11:55 Dose: 650 mg Amlodipine Besylate (Norvasc) 5 mg PO DAILY [facility] Last Admin: 05/15/18 10:57 Dose: 5 mg Aspirin (Aspirin Chewable) 81 mg PO DAILY [facility] Last Admin: 05/15/18 10:57 Dose: 81 mg Carvedilol (Coreg) 25 mg PO BID [facility] Last Admin: 05/15/18 10:57 Dose: 25 mg Dextrose (Dextrose 50% Inj) 0 ml IV STAT PRN; Protocol PRN Reason: Hypoglycemia Protocol Dextrose (Glutose 15) 0 gm PO ONCE PRN; Protocol PRN Reason: Hypoglycemia Protocol Docusate Sodium (Colace) 100 mg PO DAILY [facility] Last Admin: 05/15/18 10:57 Dose: 100 mg Furosemide (Lasix) 40 mg PO DAILY [facility] Last Admin: 05/11/18 10:31 Dose: 40 mg Gabapentin (Neurontin) 100 mg PO TID [facility] Last Admin: 05/15/18 10:58 Dose: 100 mg Glucagon (Glucagen Diagnostic Kit) 0 mg IM STAT PRN; Protocol PRN Reason: Hypoglycemia Protocol Heparin Sodium (Porcine) (Heparin) 5,000 units SC Q8 [facility] Last Admin: 05/15/18 05:17 Dose: Not Given Hydralazine HCl (Apresoline) 100 mg PO Q8H [facility] Last Admin: 05/15/18 08:45 Dose: 100 mg Dextrose (Dextrose 5% In Water 1000 Ml) 1,000 mls @ 0 mls/hr IV .Q0M PRN; Protocol; Per Protocol PRN Reason: Hypoglycemia Protocol Insulin Human Regular (Novolin R) 0 unit SC ACHS [facility] PRN Reason: Protocol Last Admin: 05/15/18 12:30 Dose: Not Given Isosorbide Mononitrate (Imdur) 60 mg PO DAILY [facility] Last Admin: 05/15/18 10:57 Dose: 60 mg Nystatin (Mycostatin Cream) 0 ea TOP TID [facility] Last Admin: 05/15/18 10:58 Dose: 1 appl Pantoprazole Sodium (Protonix Ec Tab) 40 mg PO ACB [facility] Last Admin: 05/15/18 08:45 Dose: 40 mg Polyethylene Glycol (Miralax) 17 gm PO DAILY [facility] Last Admin: 05/15/18 11:36 Dose: Not Given Rosuvastatin Calcium (Crestor) 10 mg PO HS [facility] Last Admin: 05/14/18 22:25 Dose: 10 mg - Labs Labs: 05/15/18 06:15 05/15/18 06:15 PT 12.4 SECONDS (9.7-12.2) H 05/09/18 18:10 INR 1.1 05/09/18 18:10 APTT 29 SECONDS (21-34) 05/09/18 18:10 Assessment and Plan - Assessment and Plan (Free Text) Assessment: Of note: Discontinued IVF gentle hydration, discontinued antibiotics (Primaxin) , as the repeat urine culture results showed no growth. Will start patient on Benadryl 25mg PO TID for generalized pruritus and lower extremity rash. Will discontinue Protonix 40mg PO, and will start Pepcid 20mg BID for GI prophylaxis. Discussed with Meter Tester Polyphase regarding contacting the patient's family. Patient's son did not pickler helper their calls and has not called back as of yet.
[2018-05-15] MEDS: (Novolin R) Insulin Human Regular 100 units/ml vial SC SCH ×4 (08:23→21:37)
[2018-05-15] MEDS: Pantoprazole 40 mg EC Tab PO SCH (08:45)
[2018-05-15 09:59] VITALS: RESP 20
[2018-05-15] MEDS: Nystatin 100,000 Units/gm Cream(15 gm) TOP SCH ×3 (10:58→17:46)
[2018-05-15] MEDS: POLYETHYLENE GLYCOL 3350 17 GM/Dose PACKET PO SCH (11:36)
--- NOTE | 2018-05-15 14:06 | CP.PCM.PN ---
<Mick Longoria - Last Filed: 05/15/18 14:03> Subjective - Date & Time of Evaluation Date of Evaluation: 05/15/18 Time of Evaluation: 14:09 - Subjective Subjective: PGY1 Medicine Progress Note for Dr. Drake Patient was seen and examined at bedside. Patient lying in bed comfortably in no acute distress. Patient states that she currently has no new complaints, but still complaints of generalized pain over her "entire body" and abdominal pain. Per patient, this pain has not changed on her admission. Patient also states she has itchiness "all over" her body. Patient denies SOB, nausea, vomiting, fever. Objective - Vital Signs/Intake and Output Vital Signs (last 24 hours): Temp Pulse Resp BP Pulse Ox 98 F 90 20 174/70 H 96 05/15/18 09:58 05/15/18 09:58 05/15/18 09:58 05/15/18 10:57 05/15/18 09:58 Intake and Output: 05/15/18 05/15/18 06:59 18:59 Intake Total 250 Balance 250 - Medications Medications: Current Medications Acetaminophen (Tylenol 325mg Tab) 650 mg PO Q6 PRN PRN Reason: Pain, moderate (4-7) Last Admin: 05/14/18 11:55 Dose: 650 mg Amlodipine Besylate (Norvasc) 5 mg PO DAILY [facility] Last Admin: 05/15/18 10:57 Dose: 5 mg Aspirin (Aspirin Chewable) 81 mg PO DAILY [facility] Last Admin: 05/15/18 10:57 Dose: 81 mg Carvedilol (Coreg) 25 mg PO BID [facility] Last Admin: 05/15/18 10:57 Dose: 25 mg Dextrose (Dextrose 50% Inj) 0 ml IV STAT PRN; Protocol PRN Reason: Hypoglycemia Protocol Dextrose (Glutose 15) 0 gm PO ONCE PRN; Protocol PRN Reason: Hypoglycemia Protocol Docusate Sodium (Colace) 100 mg PO DAILY [facility] Last Admin: 05/15/18 10:57 Dose: 100 mg Furosemide (Lasix) 40 mg PO DAILY [facility] Last Admin: 05/11/18 10:31 Dose: 40 mg Gabapentin (Neurontin) 100 mg PO TID [facility] Last Admin: 05/15/18 10:58 Dose: 100 mg Glucagon (Glucagen Diagnostic Kit) 0 mg IM STAT PRN; Protocol PRN Reason: Hypoglycemia Protocol Heparin Sodium (Porcine) (Heparin) 5,000 units SC Q8 [facility] Last Admin: 05/15/18 05:17 Dose: Not Given Hydralazine HCl (Apresoline) 100 mg PO Q8H [facility] Last Admin: 05/15/18 08:45 Dose: 100 mg Dextrose (Dextrose 5% In Water 1000 Ml) 1,000 mls @ 0 mls/hr IV .Q0M PRN; Protocol; Per Protocol PRN Reason: Hypoglycemia Protocol Insulin Human Regular (Novolin R) 0 unit SC ACHS [facility] PRN Reason: Protocol Last Admin: 05/15/18 12:30 Dose: Not Given Isosorbide Mononitrate (Imdur) 60 mg PO DAILY [facility] Last Admin: 05/15/18 10:57 Dose: 60 mg Nystatin (Mycostatin Cream) 0 ea TOP TID [facility] Last Admin: 05/15/18 10:58 Dose: 1 appl Pantoprazole Sodium (Protonix Ec Tab) 40 mg PO ACB [facility] Last Admin: 05/15/18 08:45 Dose: 40 mg Polyethylene Glycol (Miralax) 17 gm PO DAILY [facility] Last Admin: 05/15/18 11:36 Dose: Not Given Rosuvastatin Calcium (Crestor) 10 mg PO HS [facility] Last Admin: 05/14/18 22:25 Dose: 10 mg - Labs Labs: 05/15/18 06:15 05/15/18 06:15 PT 12.4 SECONDS (9.7-12.2) H 05/09/18 18:10 INR 1.1 05/09/18 18:10 APTT 29 SECONDS (21-34) 05/09/18 18:10 - Additional Findings Additional findings: - Constitutional Appears: Non-toxic, No Acute Distress - Head Exam Head Exam: ATRAUMATIC, NORMAL INSPECTION - Eye Exam Eye Exam: EOMI, PERRL Pupil Exam: NORMAL ACCOMODATION - ENT Exam ENT Exam: Mucous Membranes Moist - Neck Exam Neck Exam: Normal Inspection - Respiratory Exam Respiratory Exam: Clear to Ausculation Bilateral, NORMAL BREATHING PATTERN. absent: Respiratory Distress - Cardiovascular Exam Cardiovascular Exam: +S1, +S2, Murmur Additional comments: systolic murmur greater on R side than L - GI/Abdominal Exam GI & Abdominal Exam: Distended, Soft, Normal Bowel Sounds. absent: Firm, Guarding, Tenderness - Extremities Exam Extremities Exam: Normal Inspection - Back Exam Back Exam: NORMAL INSPECTION. absent: paraspinal tenderness - Neurological Exam Neurological Exam: Alert, Awake, Oriented x3 - Psychiatric Exam Psychiatric exam: Normal Affect, Normal Mood - Skin Skin Exam: Normal Color Macular patches along groin bilaterally. Blanching reddish spots throughout bilateral lower extremity Assessment and Plan - Assessment and Plan (Free Text) Assessment: Urinary Tract Infection - Repeat urine culture 05/14: shows no growth (see full report) - Discontinued: Primaxin 500mg IV Q12 (started 05/11) - UA 05/09(clean catch): blood 1+, leukocyte glory 3+, WBC/RBC high, epith cells 1 - UA 05/10 (straight cath): unremarkable except WBC 6, no leuk - Urine culture clean catch: Gram negative rods <10,000 colonies Rash likely secondary to antibiotics vs Fungal - Continue nystatin topical TID - Discontinued hydrocortizone topical BID - Start Benadryl 25mg PO TID - Start Pepcid 20mg PO BID Acute Kidney Injury, improved - Likely secondary to contrast received - Cr improving/downtrending - Lasix 40mg PO daily - on hold - Discontinued: Gentle hydration 500cc at 70cc per hour - Monitor Chest pain, resolved - Due to recent clean cardiac cath, low suspicion for ischemic etiology. No cardiac consult indicated at this time. - EUGENIA negative x3, NSR, prolonged QTC @ 482, Left axis deviation - CXR 05/12/18: Prominent diffuse increased interstitial lung markings. Biapical pleural thickening with upper lobe granulomatous changes. Bilateral hilar prominence. Right paratracheal prominence may represent prominent vasculature. Small nodular density at the right lung base may represent vessel on end. Patchy increased markings at the left lung base. Enlarged ectatic aorta. Cardiomegaly - CXR 05/09/18: Questionable interval nodular density right perihilar region versus vascular overlap. Follow-up chest CT with contrast is advised for better characterization. No airspace disease, pleural effusion or pneumothorax bilaterally. - Chest CT w/IV contrast 05/09/18: Cardiomegaly, atherosclerotic calcifications of aorta - Stress Test (07/20/17) - Showed defect possibly representing ischemia - Cardiac Cath (07/21/17) - Angiographically normal coronaries and normal LV systolic function - Echo (07/17/17): Grade II diastolic dysfunction; EF 55% - EUGENIA negative x3 Lower abdominal pain - GI consulted (Dr. Tolbert), recommendations appreciated * Recommended outpatient elective endoscopy to evaluate further - Abd/pelvis CT w/PO contrast per report: No acute abdominal or pelvic CT findings. Cirrhotic liver reiterated. Proximal duodenal diverticulum reiterated. Apparent resolution of prior bilateral pleural effusions and pericardial effusion. Cardiomegaly stable. - ED course: received one dose of Zosyn. History of Diastolic CHF (Type II) - Controlled - BNP 3290 - Daily weights/monitor intake and output - Continue Home Medications: * Aspirin 81mg PO daily * Coreg 25mg PO BID * Crestor 10mg once at night * Lasix - on hold due to JACQUES secondary to contrast Hypertension - Continue Home Medications: * Norvasc 5mg PO daily * Coreg 25mg PO BID * Hydralazine 100mg PO q8h * Isosorbide Mononitrate 60mg PO daily - Stopped IVF gentle hydration Chronic Leg Pain - Continue home medication * Gabapentin 100mg PO TID - Continue Tylenol 650mg Q6 PO for moderate pain Diabetes - ISS medium - Accuchecks - Continue to hold metformin while in the hospital - Hypoglycemia protocol History of anemia - Stable, likely due to chronic disease and low iron - Was seen by heme/onc on last visit Prophylactic measure - Lovenox 40mg SC daily - Discontinued: Protonix 40mg PO ACB - Start: Pepcid 20mg PO daily - Consistent carb, heart healthy, 2gm sodium diet Dispo: PT evaluated and recommended PT 3-5 x/week for 2 weeks. PT recs [facility] yet patient unable to go due to dylan care. Will need to continue to work with PT. Spoke to [facility] [employer], has not been able to reach patient's son, will follow-up. Patient seen and case discussed with Dr. Vidal Longoria PGY1 <Mayra Drake - Last Filed: 05/15/18 15:24> Objective - Vital Signs/Intake and Output Vital Signs (last 24 hours): Temp Pulse Resp BP Pulse Ox 98 F 90 20 174/70 H 96 05/15/18 09:58 05/15/18 09:58 05/15/18 09:58 05/15/18 10:57 05/15/18 09:58 Intake and Output: 05/15/18 05/15/18 06:59 18:59 Intake Total 250 Balance 250 - Medications Medications: Current Medications Acetaminophen (Tylenol 325mg Tab) 650 mg PO Q6 PRN PRN Reason: Pain, moderate (4-7) Last Admin: 05/14/18 11:55 Dose: 650 mg Amlodipine Besylate (Norvasc) 5 mg PO DAILY [facility] Last Admin: 05/15/18 10:57 Dose: 5 mg Aspirin (Aspirin Chewable) 81 mg PO DAILY [facility] Last Admin: 05/15/18 10:57 Dose: 81 mg Carvedilol (Coreg) 25 mg PO BID [facility] Last Admin: 05/15/18 10:57 Dose: 25 mg Dextrose (Dextrose 50% Inj) 0 ml IV STAT PRN; Protocol PRN Reason: Hypoglycemia Protocol Dextrose (Glutose 15) 0 gm PO ONCE PRN; Protocol PRN Reason: Hypoglycemia Protocol Diphenhydramine HCl (Benadryl) 25 mg PO TID [facility] Docusate Sodium (Colace) 100 mg PO DAILY [facility] Last Admin: 05/15/18 10:57 Dose: 100 mg Famotidine (Pepcid) 20 mg PO BID [facility] Furosemide (Lasix) 40 mg PO DAILY [facility] Last Admin: 05/11/18 10:31 Dose: 40 mg Gabapentin (Neurontin) 100 mg PO TID [facility] Last Admin: 05/15/18 14:25 Dose: 100 mg Glucagon (Glucagen Diagnostic Kit) 0 mg IM STAT PRN; Protocol PRN Reason: Hypoglycemia Protocol Heparin Sodium (Porcine) (Heparin) 5,000 units SC Q8 [facility] Last Admin: 05/15/18 14:24 Dose: 5,000 units Hydralazine HCl (Apresoline) 100 mg PO Q8H [facility] Last Admin: 05/15/18 08:45 Dose: 100 mg Dextrose (Dextrose 5% In Water 1000 Ml) 1,000 mls @ 0 mls/hr IV .Q0M PRN; Protocol; Per Protocol PRN Reason: Hypoglycemia Protocol Insulin Human Regular (Novolin R) 0 unit SC ACHS [facility] PRN Reason: Protocol Last Admin: 05/15/18 12:30 Dose: Not Given Isosorbide Mononitrate (Imdur) 60 mg PO DAILY [facility] Last Admin: 05/15/18 10:57 Dose: 60 mg Nystatin (Mycostatin Cream) 0 ea TOP TID [facility] Last Admin: 05/15/18 14:25 Dose: 1 appl Polyethylene Glycol (Miralax) 17 gm PO DAILY [facility] Last Admin: 05/15/18 11:36 Dose: Not Given Rosuvastatin Calcium (Crestor) 10 mg PO HS [facility] Last Admin: 05/14/18 22:25 Dose: 10 mg - Labs Labs: 05/15/18 06:15 05/15/18 06:15 PT 12.4 SECONDS (9.7-12.2) H 05/09/18 18:10 INR 1.1 05/09/18 18:10 APTT 29 SECONDS (21-34) 05/09/18 18:10 Attending/Attestation - Attestation I have personally seen and examined this patient.: Yes I have fully participated in the care of the patient.: Yes I have reviewed all pertinent clinical information, including history, physical exam and plan: Yes Notes (Text): Patient was seen and examined by me. patient is having itchy rash on her thighs. Not on her chest,back ,face and the neck. She is off antibiotics. Her rash distribution is not typical drug allergic rash distribution. We will try nystatin. She is a diabetic patient with itchy rash mostly on her groin Benadryl for pruritus Discussed with physical therapist. patient needs rehab. we will follow with PT and family spoke to CW. patient doesn't have insurance to go to [facility]
[2018-05-16] MEDS: (Novolin R) Insulin Human Regular 100 units/ml vial SC SCH ×4 (08:17→22:17)
[2018-05-16] MEDS: Nystatin 100,000 Units/gm Cream(15 gm) TOP SCH ×3 (09:26→18:00)
[2018-05-16] MEDS: POLYETHYLENE GLYCOL 3350 17 GM/Dose PACKET PO SCH (09:31)
[2018-05-16 11:10] LABS: BASO % 0.3 % (0.0-2.0); EOS # 0.2 K/uL (0.0-0.7); EOS % 4.1 % (0.0-4.0); HEMOGLOBIN 8.5 g/dL (11.0-16.0); LYMPH % 16.3 % (20.0-40.0); MEAN CELL VOLUME 79.5 fL (81.0-99.0); MEAN CORPUSCULAR HEMOGLOBIN 26.7 pg (27.0-31.0); MEAN CORPUSCULAR HGB CONC 33.6 g/dL (33.0-37.0); MONO # 0.8 K/uL (0.0-0.8); MONO % 13.6 % (0.0-10.0); NEUT # 3.9 K/uL (1.8-7.0); NEUT % 65.7 % (50.0-75.0); NRBC % 0.1 % (0.0-2.0); RBC 3.18 Mil/uL (3.80-5.20); RED CELL DISTRIBUTION WIDTH 14.7 % (11.5-14.5); WHITE BLOOD COUNT 5.9 K/uL (4.8-10.8)
[2018-05-16 11:22] LABS: ALB/GLOB RATIO 1.2 (1.0-2.1); ALBUMIN 3.4 g/dL (3.5-5.0); CALCIUM 8.5 mg/dl (8.6-10.4)
--- NOTE | 2018-05-16 14:39 | CP.PCM.PN ---
<Griffin Painting - Last Filed: 05/16/18 14:50> Subjective - Date & Time of Evaluation Date of Evaluation: 05/16/18 Time of Evaluation: 09:00 - Subjective Subjective: PGY-1 Medicine Progress Note for Dr. Drake Patient was seen and examined at bedside this AM, resting comfortably and in no acute distress. No acute events reported overnight. Pt continues to endorse generalized abdominal pain, becomes agitated at people asking her "the same questions" every day. Continues to endorse itchiness "all over" her body. No fevers/chills, headaches, dizziness, sob, cough, nausea/vomiting/diarrhea/ constipation. Objective - Vital Signs/Intake and Output Vital Signs (last 24 hours): Temp Pulse Resp BP Pulse Ox 98.9 F 87 20 168/65 H 96 05/16/18 08:18 05/16/18 08:18 05/16/18 08:18 05/16/18 09:25 05/16/18 08:18 Intake and Output: 05/16/18 05/16/18 06:59 18:59 Intake Total 200 Balance 200 - Medications Medications: Current Medications Acetaminophen (Tylenol 325mg Tab) 650 mg PO Q6 PRN PRN Reason: Pain, moderate (4-7) Last Admin: 05/14/18 11:55 Dose: 650 mg Amlodipine Besylate (Norvasc) 5 mg PO DAILY [facility] Last Admin: 05/16/18 09:25 Dose: 5 mg Aspirin (Aspirin Chewable) 81 mg PO DAILY [facility] Last Admin: 05/16/18 09:25 Dose: 81 mg Carvedilol (Coreg) 25 mg PO BID [facility] Last Admin: 05/16/18 09:25 Dose: 25 mg Dextrose (Dextrose 50% Inj) 0 ml IV STAT PRN; Protocol PRN Reason: Hypoglycemia Protocol Dextrose (Glutose 15) 0 gm PO ONCE PRN; Protocol PRN Reason: Hypoglycemia Protocol Diphenhydramine HCl (Benadryl) 25 mg PO TID [facility] Last Admin: 05/16/18 13:41 Dose: 25 mg Docusate Sodium (Colace) 100 mg PO DAILY [facility] Last Admin: 05/16/18 09:25 Dose: 100 mg Famotidine (Pepcid) 20 mg PO BID [facility] Last Admin: 05/16/18 09:25 Dose: 20 mg Furosemide (Lasix) 40 mg PO DAILY [facility] Last Admin: 05/11/18 10:31 Dose: 40 mg Gabapentin (Neurontin) 100 mg PO TID [facility] Last Admin: 05/16/18 13:41 Dose: 100 mg Glucagon (Glucagen Diagnostic Kit) 0 mg IM STAT PRN; Protocol PRN Reason: Hypoglycemia Protocol Heparin Sodium (Porcine) (Heparin) 5,000 units SC Q8 [facility] Last Admin: 05/16/18 13:41 Dose: 5,000 units Hydralazine HCl (Apresoline) 100 mg PO Q8H [facility] Last Admin: 05/16/18 08:12 Dose: 100 mg Dextrose (Dextrose 5% In Water 1000 Ml) 1,000 mls @ 0 mls/hr IV .Q0M PRN; Protocol; Per Protocol PRN Reason: Hypoglycemia Protocol Insulin Human Regular (Novolin R) 0 unit SC ACHS [facility] PRN Reason: Protocol Last Admin: 05/16/18 12:36 Dose: Not Given Isosorbide Mononitrate (Imdur) 60 mg PO DAILY [facility] Last Admin: 05/16/18 09:25 Dose: 60 mg Nystatin (Mycostatin Cream) 0 ea TOP TID [facility] Last Admin: 05/16/18 13:42 Dose: 1 appl Polyethylene Glycol (Miralax) 17 gm PO DAILY [facility] Last Admin: 05/16/18 09:31 Dose: 17 gm Rosuvastatin Calcium (Crestor) 10 mg PO HS [facility] Last Admin: 05/15/18 21:39 Dose: 10 mg - Labs Labs: 05/16/18 10:53 05/16/18 10:53 PT 12.4 SECONDS (9.7-12.2) H 05/09/18 18:10 INR 1.1 05/09/18 18:10 APTT 29 SECONDS (21-34) 05/09/18 18:10 - Constitutional Appears: Non-toxic, No Acute Distress - Head Exam Head Exam: NORMAL INSPECTION, NORMOCEPHALIC - Eye Exam Eye Exam: EOMI, Normal appearance Pupil Exam: NORMAL ACCOMODATION - ENT Exam ENT Exam: Normal Exam - Neck Exam Neck Exam: Normal Inspection - Respiratory Exam Respiratory Exam: Clear to Ausculation Bilateral, NORMAL BREATHING PATTERN. absent: Rales, Rhonchi, Wheezes, Stridor - Cardiovascular Exam Cardiovascular Exam: +S1, +S2, Murmur - GI/Abdominal Exam GI & Abdominal Exam: Soft, Normal Bowel Sounds. absent: Firm, Guarding, Rigid, Tenderness, Mass, Rebound - Back Exam Back Exam: NORMAL INSPECTION - Neurological Exam Neurological Exam: Alert, Awake, Oriented x3 - Psychiatric Exam Psychiatric exam: Normal Affect, Normal Mood - Skin Skin Exam: Dry, Intact, Normal Color, Warm Assessment and Plan - Assessment and Plan (Free Text) Assessment: 82 yo F with PMHx of diastolic CHF, HTN, DM, hyperlipidemia and anemia presenting with non-radiating, left sided chest pain since 2 pm this afternoon with associated SOB, since resolved. Plan: UTI - Repeat UCx (05/14): no growth - UA 05/09(clean catch): blood 1+, leukocyte glory 3+, WBC/RBC high, epith cells 1 - UA 05/10 (straight cath): unremarkable except WBC 6, no leuk - Urine culture clean catch: Gram negative rods <10,000 colonies Rash likely secondary to antibiotics vs Fungal - Continue nystatin topical TID - Discontinued hydrocortizone topical BID - Start Benadryl 25mg PO TID - Start Pepcid 20mg PO BID Acute Kidney Injury, improved - Likely secondary to contrast received - Cr improving/downtrending - Lasix 40mg PO daily - on hold - Continue to monitor Chest pain, resolved - Due to recent clean cardiac cath, low suspicion for ischemic etiology. No cardiac consult indicated at this time. - EUGENIA negative x3, NSR, prolonged QTC @ 482, Left axis deviation - CXR 05/12/18: Prominent diffuse increased interstitial lung markings. Biapical pleural thickening with upper lobe granulomatous changes. Bilateral hilar prominence. Right paratracheal prominence may represent prominent vasculature. Small nodular density at the right lung base may represent vessel on end. Patchy increased markings at the left lung base. Enlarged ectatic aorta. Cardiomegaly - CXR 05/09/18: Questionable interval nodular density right perihilar region versus vascular overlap. Follow-up chest CT with contrast is advised for better characterization. No airspace disease, pleural effusion or pneumothorax bilaterally. - Chest CT w/IV contrast 05/09/18: Cardiomegaly, atherosclerotic calcifications of aorta - Stress Test (07/20/17) - Showed defect possibly representing ischemia - Cardiac Cath (07/21/17) - Angiographically normal coronaries and normal LV systolic function - Echo (07/17/17): Grade II diastolic dysfunction; EF 55% - EUGENIA negative x3 Lower abdominal pain - GI consulted (Dr. Tolbert), recommendations appreciated * Recommended outpatient elective endoscopy to evaluate further - Abd/pelvis CT w/PO contrast per report: No acute abdominal or pelvic CT findings. Cirrhotic liver reiterated. Proximal duodenal diverticulum reiterated. Apparent resolution of prior bilateral pleural effusions and pericardial effusion. Cardiomegaly stable. - ED course: received one dose of Zosyn. History of Diastolic CHF (Type II) - Controlled - BNP 3290 - Daily weights/monitor intake and output - Continue Home Medications: * Aspirin 81mg PO daily * Coreg 25mg PO BID * Crestor 10mg once at night * Lasix - on hold due to JACQUES secondary to contrast Hypertension - Continue Home Medications: * Norvasc 5mg PO daily * Coreg 25mg PO BID * Hydralazine 100mg PO q8h * Isosorbide Mononitrate 60mg PO daily - Stopped IVF gentle hydration Chronic Leg Pain - Continue home medication * Gabapentin 100mg PO TID - Continue Tylenol 650mg Q6 PO for moderate pain DM - ISS medium - Accuchecks - Continue to hold metformin while in the hospital - Hypoglycemia protocol History of anemia - Stable, likely due to chronic disease and low iron - Was seen by heme/onc on last visit PPx, Diet, Disposition - DVT ppx: Lovenox 40mg SC daily - GI ppx: Pepcid 20mg PO daily - Diet: heart healthy, consistent carb, low Na - Dispo: PT evaluated and recommended PT 3-5 x/week for 2 weeks. PT recs DANETTE yet patient unable to go due to dylan care. Will need to continue to work with PT. soda worker reached out to son who says he works all day until 9pm & that no one is home to take care of her majority of the day. Case discussed with Dr. Vidal Painting DO, PGY-1 <Mayra Drake - Last Filed: 05/16/18 16:00> Objective - Vital Signs/Intake and Output Vital Signs (last 24 hours): Temp Pulse Resp BP Pulse Ox 98.9 F 87 20 168/65 H 96 05/16/18 08:18 09/11/18 08:18 05/16/18 08:18 05/16/18 09:25 05/16/18 08:18 Intake and Output: 05/16/18 05/16/18 06:59 18:59 Intake Total 200 240 Balance 200 240 - Medications Medications: Current Medications Acetaminophen (Tylenol 325mg Tab) 650 mg PO Q6 PRN PRN Reason: Pain, moderate (4-7) Last Admin: 05/14/18 11:55 Dose: 650 mg Amlodipine Besylate (Norvasc) 5 mg PO DAILY [facility] Last Admin: 05/16/18 09:25 Dose: 5 mg Aspirin (Aspirin Chewable) 81 mg PO DAILY [facility] Last Admin: 05/16/18 09:25 Dose: 81 mg Carvedilol (Coreg) 25 mg PO BID [facility] Last Admin: 05/16/18 09:25 Dose: 25 mg Dextrose (Dextrose 50% Inj) 0 ml IV STAT PRN; Protocol PRN Reason: Hypoglycemia Protocol Dextrose (Glutose 15) 0 gm PO ONCE PRN; Protocol PRN Reason: Hypoglycemia Protocol Diphenhydramine HCl (Benadryl) 25 mg PO TID [facility] Last Admin: 05/16/18 13:41 Dose: 25 mg Docusate Sodium (Colace) 100 mg PO DAILY [facility] Last Admin: 05/16/18 09:25 Dose: 100 mg Famotidine (Pepcid) 20 mg PO BID [facility] Last Admin: 05/16/18 09:25 Dose: 20 mg Furosemide (Lasix) 40 mg PO DAILY [facility] Last Admin: 05/11/18 10:31 Dose: 40 mg Gabapentin (Neurontin) 100 mg PO TID [facility] Last Admin: 05/16/18 13:41 Dose: 100 mg Glucagon (Glucagen Diagnostic Kit) 0 mg IM STAT PRN; Protocol PRN Reason: Hypoglycemia Protocol Heparin Sodium (Porcine) (Heparin) 5,000 units SC Q8 [facility] Last Admin: 05/16/18 13:41 Dose: 5,000 units Hydralazine HCl (Apresoline) 100 mg PO Q8H [facility] Last Admin: 05/16/18 08:12 Dose: 100 mg Dextrose (Dextrose 5% In Water 1000 Ml) 1,000 mls @ 0 mls/hr IV .Q0M PRN; Protocol; Per Protocol PRN Reason: Hypoglycemia Protocol Insulin Human Regular (Novolin R) 0 unit SC ACHS [facility] PRN Reason: Protocol Last Admin: 05/16/18 12:36 Dose: Not Given Isosorbide Mononitrate (Imdur) 60 mg PO DAILY [facility] Last Admin: 05/16/18 09:25 Dose: 60 mg Nystatin (Mycostatin Cream) 0 ea TOP TID [facility] Last Admin: 05/16/18 13:42 Dose: 1 appl Polyethylene Glycol (Miralax) 17 gm PO DAILY [facility] Last Admin: 05/16/18 09:31 Dose: 17 gm Rosuvastatin Calcium (Crestor) 10 mg PO HS [facility] Last Admin: 05/15/18 21:39 Dose: 10 mg - Labs Labs: 05/16/18 10:53 PT 12.4 SECONDS (9.7-12.2) H 05/09/18 18:10 INR 1.1 05/09/18 18:10 APTT 29 SECONDS (21-34) 05/09/18 18:10 Attending/Attestation - Attestation I have personally seen and examined this patient.: Yes I have fully participated in the care of the patient.: Yes I have reviewed all pertinent clinical information, including history, physical exam and plan: Yes Notes (Text): Patient was seen and examined by me. Her thigh rash is better. Comfortable. Stable for discharge home with walker and one person assist. d/w SW about discharge plan. She will contact her son. d/w resident and I agree with the resident's documentation
[2018-05-17] MEDS: (Novolin R) Insulin Human Regular 100 units/ml vial SC SCH ×4 (07:30→22:05)
[2018-05-17 08:59] LABS: BASO % 0.4 % (0.0-2.0); EOS # 0.3 K/uL (0.0-0.7); EOS % 4.6 % (0.0-4.0); HEMOGLOBIN 8.3 g/dL (11.0-16.0); LYMPH # 1.2 K/uL (1.0-4.3); LYMPH % 22.4 % (20.0-40.0); MEAN CELL VOLUME 80.3 fL (81.0-99.0); MEAN CORPUSCULAR HEMOGLOBIN 26.3 pg (27.0-31.0); MEAN CORPUSCULAR HGB CONC 32.8 g/dL (33.0-37.0); MEAN PLATELET VOLUME 8.3 fL (7.2-11.7); MONO # 0.8 K/uL (0.0-0.8); MONO % 13.7 % (0.0-10.0); NEUT # 3.2 K/uL (1.8-7.0); NEUT % 58.9 % (50.0-75.0); RBC 3.14 Mil/uL (3.80-5.20); RED CELL DISTRIBUTION WIDTH 14.7 % (11.5-14.5); WHITE BLOOD COUNT 5.5 K/uL (4.8-10.8)
--- NOTE | 2018-05-17 09:26 | CP.PCM.PN ---
<Griffin Painting - Last Filed: 05/17/18 09:24> Subjective - Date & Time of Evaluation Date of Evaluation: 05/17/18 Time of Evaluation: 09:24 - Subjective Subjective: PGY-1 Medicine Progress Note for Dr. Drake Patient was seen and examined at bedside this AM, resting comfortably and in no acute distress. No acute events reported overnight. Thigh rash is getting better. No fevers/chills, headaches, dizziness, sob, cough, nausea/vomiting/ diarrhea/constipation. Objective - Vital Signs/Intake and Output Vital Signs (last 24 hours): Temp Pulse Resp BP Pulse Ox 98.2 F 77 20 170/65 H 95 05/17/18 07:38 05/17/18 07:38 05/17/18 07:38 05/17/18 07:38 05/17/18 07:38 Intake and Output: 05/17/18 05/17/18 06:59 18:59 Intake Total 240 Balance 240 - Medications Medications: Current Medications Acetaminophen (Tylenol 325mg Tab) 650 mg PO Q6 PRN PRN Reason: Pain, moderate (4-7) Last Admin: 05/14/18 11:55 Dose: 650 mg Amlodipine Besylate (Norvasc) 5 mg PO DAILY [facility] Last Admin: 05/16/18 09:25 Dose: 5 mg Aspirin (Aspirin Chewable) 81 mg PO DAILY [facility] Last Admin: 05/16/18 09:25 Dose: 81 mg Carvedilol (Coreg) 25 mg PO BID [facility] Last Admin: 05/16/18 17:44 Dose: 25 mg Dextrose (Dextrose 50% Inj) 0 ml IV STAT PRN; Protocol PRN Reason: Hypoglycemia Protocol Dextrose (Glutose 15) 0 gm PO ONCE PRN; Protocol PRN Reason: Hypoglycemia Protocol Diphenhydramine HCl (Benadryl) 25 mg PO TID [facility] Last Admin: 05/16/18 17:45 Dose: 25 mg Docusate Sodium (Colace) 100 mg PO DAILY [facility] Last Admin: 05/16/18 09:25 Dose: 100 mg Famotidine (Pepcid) 20 mg PO BID [facility] Last Admin: 05/16/18 17:43 Dose: 20 mg Furosemide (Lasix) 40 mg PO DAILY [facility] Last Admin: 05/11/18 10:31 Dose: 40 mg Gabapentin (Neurontin) 100 mg PO TID [facility] Last Admin: 05/16/18 17:44 Dose: 100 mg Glucagon (Glucagen Diagnostic Kit) 0 mg IM STAT PRN; Protocol PRN Reason: Hypoglycemia Protocol Heparin Sodium (Porcine) (Heparin) 5,000 units SC Q8 [facility] Last Admin: 05/17/18 05:46 Dose: 5,000 units Hydralazine HCl (Apresoline) 100 mg PO Q8H [facility] Last Admin: 05/17/18 07:31 Dose: 100 mg Dextrose (Dextrose 5% In Water 1000 Ml) 1,000 mls @ 0 mls/hr IV .Q0M PRN; Protocol; Per Protocol PRN Reason: Hypoglycemia Protocol Insulin Human Regular (Novolin R) 0 unit SC ACHS [facility] PRN Reason: Protocol Last Admin: 05/16/18 22:17 Dose: Not Given Isosorbide Mononitrate (Imdur) 60 mg PO DAILY [facility] Last Admin: 05/16/18 09:25 Dose: 60 mg Nystatin (Mycostatin Cream) 0 ea TOP TID [facility] Last Admin: 05/16/18 18:00 Dose: 1 appl Polyethylene Glycol (Miralax) 17 gm PO DAILY [facility] Last Admin: 05/16/18 09:31 Dose: 17 gm Rosuvastatin Calcium (Crestor) 10 mg PO HS [facility] Last Admin: 05/16/18 22:16 Dose: 10 mg - Labs Labs: 05/17/18 08:45 05/16/18 10:53 PT 12.4 SECONDS (9.7-12.2) H 05/09/18 18:10 INR 1.1 05/09/18 18:10 APTT 29 SECONDS (21-34) 05/09/18 18:10 - Constitutional Appears: Non-toxic, No Acute Distress - Head Exam Head Exam: ATRAUMATIC, NORMAL INSPECTION, NORMOCEPHALIC - Eye Exam Eye Exam: EOMI, Normal appearance Pupil Exam: NORMAL ACCOMODATION - ENT Exam ENT Exam: Mucous Membranes Moist, Normal Exam - Neck Exam Neck Exam: Normal Inspection - Respiratory Exam Respiratory Exam: Clear to Ausculation Bilateral, NORMAL BREATHING PATTERN. absent: Rales, Rhonchi, Wheezes, Stridor - Cardiovascular Exam Cardiovascular Exam: +S1, +S2, Murmur - GI/Abdominal Exam GI & Abdominal Exam: Soft, Normal Bowel Sounds. absent: Distended, Firm, Guarding, Rigid, Mass, Organomegaly, Rebound - Back Exam Back Exam: NORMAL INSPECTION - Neurological Exam Neurological Exam: Alert, Awake, Normal Gait, Oriented x3 - Psychiatric Exam Psychiatric exam: Normal Affect - Skin Skin Exam: Dry, Intact, Normal Color, Warm Assessment and Plan - Assessment and Plan (Free Text) Assessment: 82 yo F with PMHx of diastolic CHF, HTN, DM, hyperlipidemia and anemia presenting with non-radiating, left sided chest pain since 2 pm this afternoon with associated SOB, since resolved. Plan: UTI - Repeat UCx (05/14): no growth - UA 05/09(clean catch): blood 1+, leukocyte glory 3+, WBC/RBC high, epith cells 1 - UA 05/10 (straight cath): unremarkable except WBC 6, no leuk - Urine culture clean catch: Gram negative rods <10,000 colonies Rash likely secondary to antibiotics vs Fungal - Continue nystatin topical TID - Discontinued hydrocortizone topical BID - Start Benadryl 25mg PO TID - Start Pepcid 20mg PO BID Acute Kidney Injury, improved - Likely secondary to contrast received - Cr improving/downtrending - Lasix 40mg PO daily - on hold - Continue to monitor Chest pain, resolved - Due to recent clean cardiac cath, low suspicion for ischemic etiology. No cardiac consult indicated at this time. - EUGENIA negative x3, NSR, prolonged QTC @ 482, Left axis deviation - CXR 05/12/18: Prominent diffuse increased interstitial lung markings. Biapical pleural thickening with upper lobe granulomatous changes. Bilateral hilar prominence. Right paratracheal prominence may represent prominent vasculature. Small nodular density at the right lung base may represent vessel on end. Patchy increased markings at the left lung base. Enlarged ectatic aorta. Cardiomegaly - CXR 05/09/18: Questionable interval nodular density right perihilar region versus vascular overlap. Follow-up chest CT with contrast is advised for better characterization. No airspace disease, pleural effusion or pneumothorax bilaterally. - Chest CT w/IV contrast 05/09/18: Cardiomegaly, atherosclerotic calcifications of aorta - Stress Test (07/20/17) - Showed defect possibly representing ischemia - Cardiac Cath (07/21/17) - Angiographically normal coronaries and normal LV systolic function - Echo (07/17/17): Grade II diastolic dysfunction; EF 55% - EUGENIA negative x3 Lower abdominal pain - GI consulted (Dr. Tolbert), recommendations appreciated * Recommended outpatient elective endoscopy to evaluate further - Abd/pelvis CT w/PO contrast per report: No acute abdominal or pelvic CT findings. Cirrhotic liver reiterated. Proximal duodenal diverticulum reiterated. Apparent resolution of prior bilateral pleural effusions and pericardial effusion. Cardiomegaly stable. - ED course: received one dose of Zosyn. History of Diastolic CHF (Type II) - Controlled - BNP 3290 - Daily weights/monitor intake and output - Continue Home Medications: * Aspirin 81mg PO daily * Coreg 25mg PO BID * Crestor 10mg once at night * Lasix - on hold due to JACQUES secondary to contrast Hypertension - Continue Home Medications: * Norvasc 5mg PO daily * Coreg 25mg PO BID * Hydralazine 100mg PO q8h * Isosorbide Mononitrate 60mg PO daily - Stopped IVF gentle hydration Chronic Leg Pain - Continue home medication * Gabapentin 100mg PO TID - Continue Tylenol 650mg Q6 PO for moderate pain DM - ISS medium - Accuchecks - Continue to hold metformin while in the hospital - Hypoglycemia protocol History of anemia - Stable, likely due to chronic disease and low iron - Was seen by heme/onc on last visit PPx, Diet, Disposition - DVT ppx: Lovenox 40mg SC daily - GI ppx: Pepcid 20mg PO daily - Diet: heart healthy, consistent carb, low Na - Dispo: PT evaluated and recommended PT 3-5 x/week for 2 weeks. PT recs DANETTE yet patient unable to go due to dylan care. Will need to continue to work with PT. 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 Case discussed with Dr. Vidal Painting DO, PGY-1 <Mayra Drake - Last Filed: 05/19/18 15:25> Objective - Vital Signs/Intake and Output Vital Signs (last 24 hours): Temp Pulse Resp BP Pulse Ox 98.4 F 79 20 157/67 H 96 05/18/18 08:00 05/18/18 08:00 05/18/18 08:00 05/18/18 11:36 05/18/18 08:00 - Labs Labs: 05/18/18 06:43 05/18/18 06:43 PT 12.4 SECONDS (9.7-12.2) H 05/09/18 18:10 INR 1.1 05/09/18 18:10 APTT 29 SECONDS (21-34) 05/09/18 18:10 Attending/Attestation - Attestation I have personally seen and examined this patient.: Yes I have fully participated in the care of the patient.: Yes I have reviewed all pertinent clinical information, including history, physical exam and plan: Yes Notes (Text): Assessment and the plan discussed with the resident and I agree with the documentation. Stable for discharge home with her son.
[2018-05-17 09:30] LABS: ALB/GLOB RATIO 1.1 (1.0-2.1); ALBUMIN 3.4 g/dL (3.5-5.0); CALCIUM 8.5 mg/dl (8.6-10.4)
[2018-05-17] MEDS: Nystatin 100,000 Units/gm Cream(15 gm) TOP SCH ×3 (09:35→17:39)
[2018-05-17] MEDS: POLYETHYLENE GLYCOL 3350 17 GM/Dose PACKET PO SCH (09:35)
--- NOTE | 2018-05-17 15:43 | CP.PCM.DIS ---
Provider - Provider Date of Admission: 05/09/18 20:47 Attending physician: Mayra Drake MD Time Spent in preparation of Discharge (in minutes): 40 Hospital Course - Lab Results Lab Results: Micro Results 05/14/18 12:41 Urine Urine Culture - Final No Growth (<1,000 CFU/ML) 05/10/18 00:45 Urine,Catheterized Urine Culture - Final Gram Negative Devang 05/09/18 21:38 Urine Urine Culture - Final Gram Negative Devang Most Recent Lab Values WBC 5.5 K/uL (4.8-10.8) 05/17/18 08:45 RBC 3.14 Mil/uL (3.80-5.20) L 05/17/18 08:45 Hgb 8.3 g/dL (11.0-16.0) L 05/17/18 08:45 Hct 25.2 % (34.0-47.0) L 05/17/18 08:45 MCV 80.3 fL (81.0-99.0) L 05/17/18 08:45 MCH 26.3 pg (27.0-31.0) L 05/17/18 08:45 MCHC 32.8 g/dL (33.0-37.0) L 05/17/18 08:45 RDW 14.7 % (11.5-14.5) H 05/17/18 08:45 Plt Count 191 K/uL (130-400) 05/17/18 08:45 MPV 8.3 fL (7.2-11.7) 05/17/18 08:45 Neut % (Auto) 58.9 % (50.0-75.0) 05/17/18 08:45 Lymph % (Auto) 22.4 % (20.0-40.0) 05/17/18 08:45 [place] % (Auto) 13.7 % (0.0-10.0) H 05/17/18 08:45 Eos % (Auto) 4.6 % (0.0-4.0) H 05/17/18 08:45 Baso % (Auto) 0.4 % (0.0-2.0) 05/17/18 08:45 Neut # (Auto) 3.2 K/uL (1.8-7.0) 05/17/18 08:45 Lymph # (Auto) 1.2 K/uL (1.0-4.3) 05/17/18 08:45 [place] # (Auto) 0.8 K/uL (0.0-0.8) 05/17/18 08:45 Eos # (Auto) 0.3 K/uL (0.0-0.7) 05/17/18 08:45 Baso # (Auto) 0.0 K/uL (0.0-0.2) 05/17/18 08:45 PT 12.4 SECONDS (9.7-12.2) H 05/09/18 18:10 INR 1.1 05/09/18 18:10 APTT 29 SECONDS (21-34) 05/09/18 18:10 Sodium 140 mmol/L (132-148) 05/17/18 08:45 Potassium 4.9 mmol/L (3.6-5.2) 05/17/18 08:45 Chloride 109 mmol/L (98-107) H 05/17/18 08:45 Carbon Dioxide 21 mmol/L (22-30) L 05/17/18 08:45 Anion Gap 15 (10-20) 05/17/18 08:45 BUN 25 mg/dL (7-17) H 05/17/18 08:45 Creatinine 1.1 mg/dL (0.7-1.2) 05/17/18 08:45 Est GFR ( Amer) 58 05/17/18 08:45 Est GFR (Non-Af Amer) 48 05/17/18 08:45 POC Glucose (mg/dL) 174 mg/dL (65-110) H 05/17/18 11:25 Random Glucose 133 mg/dL (65-105) H 05/17/18 08:45 Calcium 8.5 mg/dl (8.6-10.4) L 05/17/18 08:45 Phosphorus 4.1 mg/dL (2.5-4.5) 05/17/18 08:45 Magnesium 2.2 mg/dL (1.6-2.3) 05/17/18 08:45 Iron 25 ug/dL (37-170) L 05/10/18 07:18 TIBC 339 ug/dL (250-450) 05/10/18 07:18 % Saturation 7 (20-55) L 05/10/18 07:18 Total Bilirubin 0.3 mg/dL (0.2-1.3) 05/17/18 08:45 AST 19 U/L (14-36) 05/17/18 08:45 ALT 27 U/L (9-52) 05/17/18 08:45 Alkaline Phosphatase 100 U/L (38-126) 05/17/18 08:45 Total Creatine Kinase 32 U/L (30-135) 05/10/18 07:18 CK-MB (Mass) < 0.22 ng/mL (0.0-3.38) 05/10/18 07:18 Troponin I 0.0180 ng/mL (0.00-0.120) 05/10/18 07:18 NT-Pro-B Natriuret Pep 3290 pg/mL (0-900) H 05/09/18 18:03 Total Protein 6.4 g/dL (6.3-8.3) 05/17/18 08:45 Albumin 3.4 g/dL (3.5-5.0) L 05/17/18 08:45 Globulin 3.0 gm/dL (2.2-3.9) 05/17/18 08:45 Albumin/Globulin Ratio 1.1 (1.0-2.1) 05/17/18 08:45 Urine Color Straw (YELLOW) 05/10/18 00:45 Urine Clarity Clear (Clear) 05/10/18 00:45 Urine pH 5.0 (5.0-8.0) 05/10/18 00:45 Ur Specific [place] 1.019 (1.003-1.030) 05/10/18 00:45 Urine Protein Negative mg/dL (NEGATIVE) 05/10/18 00:45 Urine Glucose (UA) Normal mg/dL (Normal) 05/10/18 00:45 Urine Ketones Negative mg/dL (NEGATIVE) 05/10/18 00:45 Urine Blood Negative (NEGATIVE) 18 00:45 Urine Nitrate Negative (NEGATIVE) 05/10/18 00:45 Urine Bilirubin Negative (NEGATIVE) 05/10/18 00:45 Urine Urobilinogen Normal mg/dL (0.2-1.0) 05/10/18 00:45 Ur Leukocyte Esterase Neg Farhan/uL (Negative) 05/10/18 00:45 Urine WBC (Auto) 6 /hpf (0-5) H 05/10/18 00:45 Urine RBC (Auto) 1 /hpf (0-3) 05/10/18 00:45 Urine WBC Clumps (Auto) Few /hpf (NONE) H 05/09/18 18:11 Ur Squamous Epith Cells < 1 /hpf (0-5) 05/10/18 00:45 Urine Bacteria Few (<OCC) H 05/09/18 18:11 Stool Occult Blood Negative (NEGATIVE) 05/10/18 20:15 - Hospital Course Hospital Course: HPI: Ms. Luke is an 82 year old female with a past medical history of diastolic congestive heart failure, hypertension, diabetes mellitus, hyperlipidemia and anemia presented to the emergency department with a complaint of non-radiating, left sided chest pain since 2 pm this afternoon with associated SOB. The pain is not alleviated by rest. She is unable to describe the chest pain. Since being in the emergency department, she reports her chest pain has moved and is currently throughout her entire body. She also has lower abdominal pain that she has been experiencing for 15 days. The lower abdominal pain is associated with burning with urination. She denies hematuria or increased frequency. Patient denies fever, chills, nausea, vomiting, diarrhea , constipation, headaches, numbness or tingling. The following coursework was performed. For full detail, please refer to EMR. UTI--resolved - Repeat UCx (05/14): no growth - afebrile, no leukocytosis, no urinary symptoms - UA 05/09(clean catch): blood 1+, leukocyte glory 3+, WBC/RBC high, epith cells 1 - UA 05/10 (straight cath): unremarkable except WBC 6, no leuk - Urine culture clean catch: Gram negative rods <10,000 colonies Rash likely secondary to antibiotics vs Fungal - Nystatin topical TID - Started on Benadryl 25mg PO TID - Started Pepcid 20mg PO BID Acute Kidney Injury, improved - Likely secondary to contrast received - Cr improving/downtrending - Lasix 40mg PO daily - on hold Chest pain, resolved - Due to recent clean cardiac cath, low suspicion for ischemic etiology. No cardiac consult indicated at this time. - EUGENIA negative x3, NSR, prolonged QTC @ 482, Left axis deviation - CXR 05/12/18: Prominent diffuse increased interstitial lung markings. Biapical pleural thickening with upper lobe granulomatous changes. Bilateral hilar prominence. Right paratracheal prominence may represent prominent vasculature. Small nodular density at the right lung base may represent vessel on end. Patchy increased markings at the left lung base. Enlarged ectatic aorta. Cardiomegaly - CXR 05/09/18: Questionable interval nodular density right perihilar region versus vascular overlap. Follow-up chest CT with contrast is advised for better characterization. No airspace disease, pleural effusion or pneumothorax bilaterally. - Chest CT w/IV contrast 05/09/18: Cardiomegaly, atherosclerotic calcifications of aorta - Stress Test (07/20/17) - Showed defect possibly representing ischemia - Cardiac Cath (07/21/17) - Angiographically normal coronaries and normal LV systolic function - Echo (07/17/17): Grade II diastolic dysfunction; EF 55% - EUGENIA negative x3 Lower abdominal pain - GI consulted (Dr. Tolbert), recommendations appreciated * Recommended outpatient elective endoscopy to evaluate further - Abd/pelvis CT w/PO contrast per report: No acute abdominal or pelvic CT findings. Cirrhotic liver reiterated. Proximal duodenal diverticulum reiterated. Apparent resolution of prior bilateral pleural effusions and pericardial effusion. Cardiomegaly stable. - ED course: received one dose of Zosyn. History of Diastolic CHF (Type II) - Controlled - BNP 3290 - Daily weights/monitor intake and output - Continue Home Medications: * Aspirin 81mg PO daily * Coreg 25mg PO BID * Crestor 10mg once at night * Lasix - on hold due to JACQUES secondary to contrast Hypertension - Continue Home Medications: * Norvasc 5mg PO daily * Coreg 25mg PO BID * Hydralazine 100mg PO q8h * Isosorbide Mononitrate 60mg PO daily - Stopped IVF gentle hydration Chronic Leg Pain - Continue home medication * Gabapentin 100mg PO TID - Continue Tylenol 650mg Q6 PO for moderate pain DM - placed on medium dose insulin sliding scale with hypoglycemic protocol and accuchecks - Home metformin held while in the hospital - to be d/c'd on home medication Patient remained afebrile, with no elevated WBC count or source of infection. She is medically stable for discharge, as per Dr. Drake. She is instructed to follow up at [facility] within 1-2 weeks of discharge for continued management. Please call the following number to schedule an appointment: [place] [address] Patient is to be discharge home with use of a rolling walker for gait stability. Script provided for rolling walker home use. Her son was instructed that patient will need assistance at home for ambulation and transfers. Patient is instructed to continue all home medications as prescribed. Scripts have been given for all home medications. If symptoms worsen, please return to the ED. Discharge Exam - Head Exam Head Exam: ATRAUMATIC, NORMAL INSPECTION, NORMOCEPHALIC - Eye Exam Eye Exam: EOMI, Normal appearance Pupil Exam: NORMAL ACCOMODATION - ENT Exam ENT Exam: Mucous Membranes Moist, Normal Exam - Neck Exam Neck exam: Normal Inspection - Respiratory Exam Respiratory Exam: Clear to PA & Lateral, NORMAL BREATHING PATTERN, UNREMARKABLE. absent: Rhonchi, Wheezes, Stridor - Cardiovascular Exam Cardiovascular Exam: REGULAR RHYTHM, +S1, +S2 - GI/Abdominal Exam GI & Abdominal Exam: Normal Bowel Sounds, Soft, Unremarkable. absent: Distended , Firm, Guarding, Hernia, Organomegaly, Rebound, Rigid, Tenderness - Back Exam Back exam: NORMAL INSPECTION - Neurological Exam Neurological exam: Alert, Normal Gait, Oriented x3 - Psychiatric Exam Psychiatric exam: Normal Affect, Normal Mood - Skin Skin Exam: Dry, Intact, Normal Color, Warm Discharge Plan - Discharge Medications Prescriptions: amLODIPine [Norvasc] 5 mg PO DAILY #30 tab Aspirin [Aspirin Chewable] 81 mg PO DAILY #30 chew Atorvastatin [Lipitor] 20 mg PO HS #30 tab Carvedilol [Coreg] 25 mg PO BID #60 tab Furosemide [Lasix] 40 mg PO DAILY #30 tab Gabapentin [Neurontin] 100 mg PO TID #90 cap hydrALAZINE [Apresoline] 100 mg PO Q8H #90 tab Isosorbide Mononitrate [Imdur] 60 mg PO DAILY #30 tab MetFORMIN [glucoPHAGE] 1,000 mg PO BID #60 tab - Follow Up Plan Condition: FAIR Disposition: HOME/ ROUTINE Additional Instructions: Patient is medically stable for discharge, as per Dr. Drake. She is instructed to follow up at [facility] within 1- 2 weeks of discharge for continued management. Please call the following number to schedule an appointment: [facility] [address] [place] [address] Patient is to be discharge home with use of a rolling walker for gait stability. Script provided for rolling walker home use. Her son was instructed that patient will need assistance at home for ambulation and transfers. Patient is instructed to continue all home medications as prescribed. Scripts have been given for all home medications. If symptoms worsen, please return to the ED. Take care and be well. El paciente es mdicamente estable para el jatinder, segn el Dr. Drake. Iesha recibe instrucciones de realizar un seguimiento en [facility] dentro de 1 a 2 semanas del jatinder para continuar con el tratamiento. Por favor llame al siguiente nmero para programar rui ngozi: [facility] [address] [address] [place]: El paciente debe ser dado de jatinder a casa con el uso de un andador rodante para la estabilidad de la marcha. Script provisto para el uso domstico rodante. Se instruy a bhakta hijo que el paciente necesitar ayuda en casa para ambulacin y transferencias. El paciente recibe instrucciones de continuar todos los medicamentos en el hogar segn lo recetado. Se diaz dado guiones para todos los medicamentos caseros. Si los sntomas empeoran, regrese al servicio de urgencias. Cudate y mantente olivier.
[2018-05-18 07:26] LABS: BASO % 0.3 % (0.0-2.0); EOS # 0.3 K/uL (0.0-0.7); EOS % 4.7 % (0.0-4.0); HEMOGLOBIN 8.3 g/dL (11.0-16.0); LYMPH # 1.1 K/uL (1.0-4.3); LYMPH % 21.1 % (20.0-40.0); MEAN CELL VOLUME 79.4 fL (81.0-99.0); MEAN PLATELET VOLUME 7.8 fL (7.2-11.7); MONO # 0.8 K/uL (0.0-0.8); MONO % 14.6 % (0.0-10.0); NEUT # 3.2 K/uL (1.8-7.0); NEUT % 59.3 % (50.0-75.0); NRBC % 0.1 % (0.0-2.0); RBC 3.06 Mil/uL (3.80-5.20); RED CELL DISTRIBUTION WIDTH 14.7 % (11.5-14.5); WHITE BLOOD COUNT 5.4 K/uL (4.8-10.8)
[2018-05-18 07:43] LABS: ALB/GLOB RATIO 1.1 (1.0-2.1); ALBUMIN 3.3 g/dL (3.5-5.0); CALCIUM 8.4 mg/dl (8.6-10.4)
[2018-05-18 08:01] VITALS: PULSE 79; TEMP 98.4; O2SAT 96
[2018-05-18] MEDS: (Novolin R) Insulin Human Regular 100 units/ml vial SC SCH ×2 (08:24→12:57)
[2018-05-18 11:40] VITALS: BP 157/67
[2018-05-18] MEDS: Nystatin 100,000 Units/gm Cream(15 gm) TOP SCH ×2 (11:40→14:22)
[2018-05-18] MEDS: POLYETHYLENE GLYCOL 3350 17 GM/Dose PACKET PO SCH (11:45)
== END 2018-05-18 14:35 | disposition home or self-care (01) | DRG 543 ==
LOC: C.ER 17:32 → C.9E 20:47 → C.6T 21:23 → C.3T 05-15 06:51
PROVIDERS: ADMIT Internal Medicine; ATTEND Internal Medicine
DX: R07.89 Other chest pain (principal); I50.32 Chronic diastolic (congestive) heart failure; N17.9 Acute kidney failure, unspecified; I11.0 Hypertensive heart disease with heart failure; N39.0 Urinary tract infection, site not specified; K74.60 Unspecified cirrhosis of liver; F03.90 Unspecified dementia, unspecified severity, without behavioral disturbance, psychotic disturbance, mood disturbance, and anxiety; B96.89 Other specified bacterial agents as the cause of diseases classified elsewhere; T50.8X5A Adverse effect of diagnostic agents, initial encounter; K59.00 Constipation, unspecified; E11.9 Type 2 diabetes mellitus without complications; I45.81 Long QT syndrome; G89.29 Other chronic pain; D64.9 Anemia, unspecified; E78.5 Hyperlipidemia, unspecified; E78.00 Pure hypercholesterolemia, unspecified; K57.10 Diverticulosis of small intestine without perforation or abscess without bleeding; L29.9 Pruritus, unspecified; Z79.84 Long term (current) use of oral hypoglycemic drugs; Z79.82 Long term (current) use of aspirin; Z79.899 Other long term (current) drug therapy

== ENCOUNTER 2018-08-18 09:55 | Observation (INO) | payer OTHER ==
[2018-08-18 10:06] VITALS: BMI 28.8
[2018-08-18 10:55] LABS: BASO % 0.7 % (0.0-2.0); EOS # 0.2 K/uL (0.0-0.7); HEMOGLOBIN 9.6 g/dL (11.0-16.0); LYMPH # 1.2 K/uL (1.0-4.3); LYMPH % 20.6 % (20.0-40.0); MEAN CELL VOLUME 80.9 fL (81.0-99.0); MEAN CORPUSCULAR HEMOGLOBIN 26.2 pg (27.0-31.0); MEAN CORPUSCULAR HGB CONC 32.4 g/dL (33.0-37.0); MEAN PLATELET VOLUME 7.8 fL (7.2-11.7); MONO # 0.6 K/uL (0.0-0.8); MONO % 10.6 % (0.0-10.0); NEUT # 3.7 K/uL (1.8-7.0); NEUT % 65.1 % (50.0-75.0); RBC 3.67 Mil/uL (3.80-5.20); RED CELL DISTRIBUTION WIDTH 18.7 % (11.5-14.5); WHITE BLOOD COUNT 5.7 K/uL (4.8-10.8)
[2018-08-18 11:08] LABS: ALB/GLOB RATIO 1.4 (1.0-2.1); ALBUMIN 4.6 g/dL (3.5-5.0); ALT/SGPT 16 U/L (9-52); AST/SGOT 31 U/L (14-36); BLOOD UREA NITROGEN 27 mg/dL (7-17); GFR NON-AFRICAN AMERICAN 39
--- NOTE | 2018-08-18 11:08 | RAD ---
Date of service: 08/18/2018 PROCEDURE: CHEST RADIOGRAPH, 1 VIEW HISTORY: SOB, CP, cough COMPARISON: 05/12/2018 FINDINGS: LUNGS: The lungs are well inflated and clear. PLEURA: No pneumothorax or pleural effusion. CARDIOVASCULAR: The heart is normal in size. No aortic atherosclerotic calcifications present. OSSEOUS STRUCTURES: Within normal limits for the patient's age. VISUALIZED UPPER ABDOMEN: Normal. OTHER FINDINGS: None. IMPRESSION: No active pulmonary disease.
--- NOTE | 2018-08-18 11:13 | C.PDOC ---
History Of Present Illness 82 y/o female presents to ED with c/o cough for 4 days and chest pain for 3 days productive of yellow sputum. Patient denies fever, chills, sob, palpitations, nausea, vomiting, headache or any other complaints at this time. Time Seen by Provider: 08/18/18 10:11 Chief Complaint (Nursing): Chest Pain History Per: Patient History/Exam Limitations: no limitations Onset/Duration Of Symptoms: Days Current Symptoms Are (Timing): Still Present Past Medical History Reviewed: Historical Data, Nursing Documentation, Vital Signs Vital Signs: Last Vital Signs Temp 98.4 F 08/18/18 10:06 Pulse 74 08/18/18 10:06 Resp 18 08/18/18 10:06 BP 128/60 08/18/18 10:32 Pulse Ox 98 08/18/18 10:06 - Medical History PMH: Anemia, Diabetes, HTN, Hypercholesterolemia, Hyperlipidemia Denies: Chronic Kidney Disease Surgical History: No Surg Hx - [facility] Procedures FLUOROSCOPY OF LEFT HEART USING LOW OSMOLAR CONTRAST (07/17/17) FLUOROSCOPY OF MULT COR ART USING L OSM CONTRAST (07/17/17) MEASURE OF CARDIAC SAMPL & PRESSURE, L HEART, PERC APPROACH (07/17/17) Family History: States: No Known Family Hx - Social History Hx Tobacco Use: No Hx Alcohol Use: No Hx Substance Use: No - Immunization History Hx Tetanus Toxoid Vaccination: No Hx Influenza Vaccination: Yes Hx Pneumococcal Vaccination: Yes Review Of Systems Constitutional: Negative for: Fever, Chills Cardiovascular: Positive for: Chest Pain Respiratory: Positive for: Cough. Negative for: Shortness of Breath Gastrointestinal: Negative for: Nausea, Vomiting Skin: Negative for: Rash Physical Exam - Physical Exam Appears: Non-toxic, No Acute Distress Skin: Warm, Dry, No Rash Head: Atraumatic, Normacephalic Eye(s): bilateral: Normal Inspection Oral Mucosa: Moist Neck: Normal ROM, Supple Chest: Symmetrical Cardiovascular: Rhythm Regular Respiratory: Normal Breath Sounds, No Rales, No Rhonchi, No Wheezing Gastrointestinal/Abdominal: Soft, No Tenderness, No Guarding, No Rebound Extremity: Normal ROM, No Pedal Edema, Capillary Refill (<2 seconds) Neurological/Psych: Oriented x3, Normal Speech, Normal Cognition ED Course And Treatment - Laboratory Results Result Diagrams: 08/18/18 10:47 08/18/18 10:47 ECG: Interpreted By Me, Viewed By Me ECG Rhythm: Sinus Rhythm Interpretation Of ECG: Left axis deviation, Q waves in 3, V2-V3 Rate From EC (BPM) O2 Sat by Pulse Oximetry: 98 (RA) Pulse Ox Interpretation: Normal - Other Rad CXR X-Ray: Viewed By Me, Read By Radiologist Interpretation: PROCEDURE: CHEST RADIOGRAPH, 1 VIEW. HISTORY: SOB, CP, cough. COMPARISON: 05/12/2018. FINDINGS: LUNGS: The lungs are well inflated and clear. PLEURA: No pneumothorax or pleural effusion. CARDIOVASCULAR: The heart is normal in size. No aortic atherosclerotic calcifications present. OSSEOUS STRUCTURES: Within normal limits for the patient's age. VISUALIZED UPPER ABDOMEN: Normal. OTHER FINDINGS: None. IMPRESSION: No active pulmonary disease. Progress Note: Blood work, ECG, Influenza test ordered and negative. Case was discussed with Hospitalist who accepted patient to [facility]. Disposition - Disposition Disposition: HOSPITALIZED Disposition Time: 14:48 Condition: FAIR - Clinical Impression Clinical Impression: Chest pain, UTI (urinary tract infection) - PA / BPM DEVELOPER / Resident Statement MD/DO has reviewed & agrees with the documentation as recorded. - Scribe Statement The provider has reviewed the documentation as recorded by the Scribe Lena Bahena All medical record entries made by the Ronnellibe were at my direction and personally dictated by me. I have reviewed the chart and agree that the record accurately reflects my personal performance of the history, physical exam, medical decision making, and the department course for this patient. I have also personally directed, reviewed, and agree with the discharge instructions and disposition. Decision To Admit - Pt Status Changed To: Hospital Disposition Of: Observation - . Bed Request Type: Telemetry Admitting Physician: Claudio Gardner Patient Diagnosis: Chest pain, UTI (urinary tract infection)
[2018-08-18 11:16] LABS: INR 1.1; PROTHROMBIN TIME 12.4 SECONDS (9.7-12.2)
[2018-08-18 11:19] LABS: INFLUENZA A B NEGATIVE FOR FLU A/B (NEGATIVE)
[2018-08-18 11:24] LABS: CK-MB 0.49 ng/mL (0.0-3.38)
[2018-08-18 11:53] LABS: SQUAMOUS EPITHIAL 16 /hpf (0-5); URINE BACTERIA RARE (<OCC); URINE BILIRUBIN NEGATIVE (NEGATIVE); URINE BLOOD NEGATIVE (NEGATIVE); URINE CLARITY Hazy (Clear); URINE COLOR Yellow (YELLOW); URINE GLUCOSE (UA) NORMAL (Normal); URINE HYALINE CAST >20 /lpf (0-2); URINE LEUKOCYTE ESTERASE 1+ Leu/uL (Negative); URINE PROTEIN 2+ mg/dL (NEGATIVE); URINE UROBILINOGEN NORMAL mg/dL (0.2-1.0)
--- NOTE | 2018-08-18 14:45 | CP.PCM.HP ---
<Gómez Jean-Baptiste - Last Filed: 08/18/18 17:01> History of Present Illness - History of Present Illness History of Present Illness: cc: chest pressure , headache, abdominal pain, short of breath, my feet hurt and my hands hurt too help me doctor HPI: 82yo F w pmhx of htn dm chf hld and anemia presents to the ED with 4 days mor pressure like chest discomfort and LLQ abd pain, which has worsened since onset . She had a similar episode in may for which she was admitted to [facility]. She also complains of abdominal pain, bilateral shoulder pain, bilaterl hand pain, foot pains and SOB. She report vision and hearing changes and some itchiness as well. She says these generalized symptoms have been present for oneer a year and have been constant in nature. Pt denies depression, stress at home or problems in home life. PMD - Dr. Gu PMH - HTN, DM, CHF (diastolic), hyperlipidemia and anemia, recent hospitalisation 05/23 PSH - Cardiac cath 07/21/17 (normal coronies) FamilyHx - unremarkable Social - Denies tobacco use, alcohol use or drug use Allergies - Metronidazole - rash Meds - amLODIPine [Norvasc] 5 mg PO DAILY #30 tab Aspirin [Aspirin Chewable] 81 mg PO DAILY #30 chew Atorvastatin [Lipitor] 20 mg PO HS #30 tab Carvedilol [Coreg] 25 mg PO BID #60 tab Furosemide [Lasix] 40 mg PO DAILY #30 tab Gabapentin [Neurontin] 100 mg PO TID #90 cap hydrALAZINE [Apresoline] 100 mg PO Q8H #90 tab Isosorbide Mononitrate [Imdur] 60 mg PO DAILY #30 tab MetFORMIN [glucoPHAGE] 1,000 mg PO BID #60 tab Present on Admission - Present on Admission Any Indicators Present on Admission: No Review of Systems - Review of Systems All systems: reviewed and no additional remarkable complaints except (as per HPI) Past Patient History - Infectious Disease Hx of Infectious Diseases: None - Past Medical History & Family History Past Medical History?: Yes - Past Social History Smoking Status: Never Smoked - CARDIAC Hx Hypercholesterolemia: Yes Hx Hypertension: Yes - PULMONARY Hx Respiratory Disorders: No - NEUROLOGICAL Hx Neurological Disorder: No - HEENT Hx HEENT Problems: No - RENAL Hx Chronic Kidney Disease: No - ENDOCRINE/METABOLIC Hx Diabetes Mellitus Type 2: Yes - HEMATOLOGICAL/ONCOLOGICAL Hx Anemia: Yes - INTEGUMENTARY Hx Dermatological Problems: No - MUSCULOSKELETAL/RHEUMATOLOGICAL Hx Musculoskeletal Disorders: No Hx Falls: No - GASTROINTESTINAL Hx Gastrointestinal Disorders: No - GENITOURINARY/GYNECOLOGICAL Hx Genitourinary Disorders: No - PSYCHIATRIC Hx Substance Use: No - SURGICAL HISTORY Hx Surgeries: Yes Other/Comment: vascular surgery - ANESTHESIA Hx Anesthesia: Yes Hx Anesthesia Reactions: No Meds Allergies/Adverse Reactions: Allergies Allergy/AdvReac Type Severity Reaction Status Date / Time metronidazole [From Flagyl] Allergy RASH Verified 08/18/18 10:06 Physical Exam - Constitutional Appears: No Acute Distress - Head Exam Head Exam: ATRAUMATIC, NORMAL INSPECTION - Eye Exam Eye Exam: Normal appearance, Periorbital tenderness. absent: Scleral icterus - ENT Exam ENT Exam: Mucous Membranes Moist, Normal Exam - Neck Exam Neck exam: Positive for: Normal Inspection. Negative for: Lymphadenopathy - Respiratory Exam Respiratory Exam: Clear to Auscultation Bilateral, NORMAL BREATHING PATTERN - Cardiovascular Exam Cardiovascular Exam: RRR, +S1, +S2 - GI/Abdominal Exam GI & Abdominal Exam: Tenderness (LLQ) - Neurological Exam Neurological exam: Alert, CN II-XII Intact, Oriented x3 - Psychiatric Exam Psychiatric exam: Normal Affect, Normal Mood - Skin Skin Exam: Dry, Normal Color, Warm Results - Vital Signs Recent Vital Signs: Last Vital Signs Temp 98.3 F 08/18/18 13:02 Pulse 63 08/18/18 13:33 Resp 16 08/18/18 13:33 BP 161/60 H 08/18/18 13:33 Pulse Ox 98 08/18/18 13:33 - Labs Result Diagrams: 08/18/18 10:47 08/18/18 10:47 Labs: Laboratory Results - last 24 hr 08/18/18 08/18/18 08/18/18 10:12 10:47 10:47 WBC 5.7 RBC 3.67 L Hgb 9.6 L Hct 29.7 L MCV 80.9 L MCH 26.2 L MCHC 32.4 L RDW 18.7 H Plt Count 177 MPV 7.8 Neut % (Auto) 65.1 Lymph % (Auto) 20.6 Dare % (Auto) 10.6 H Eos % (Auto) 3.0 Baso % (Auto) 0.7 Neut # (Auto) 3.7 Lymph # (Auto) 1.2 Dare # (Auto) 0.6 Eos # (Auto) 0.2 Baso # (Auto) 0.0 PT 12.4 H INR 1.1 APTT 31 Sodium Potassium Chloride Carbon Dioxide Anion Gap BUN Creatinine Est GFR ( Amer) Est GFR (Non-Af Amer) POC Glucose (mg/dL) 130 H Random Glucose Lactic Acid Calcium Total Bilirubin AST ALT Alkaline Phosphatase Total Creatine Kinase CK-MB (Mass) Troponin I Total Protein Albumin Globulin Albumin/Globulin Ratio Urine Color Urine Clarity Urine pH Ur Specific Knox Urine Protein Urine Glucose (UA) Urine Ketones Urine Blood Urine Nitrate Urine Bilirubin Urine Urobilinogen Ur Leukocyte Esterase Urine WBC (Auto) Urine RBC (Auto) Ur Squamous Epith Cells Urine Bacteria Hyaline Casts Influenza Typ A,B (EIA) RSV Antigen 08/18/18 08/18/18 08/18/18 10:47 10:56 11:02 WBC RBC Hgb Hct MCV MCH MCHC RDW Plt Count MPV Neut % (Auto) Lymph % (Auto) Dare % (Auto) Eos % (Auto) Baso % (Auto) Neut # (Auto) Lymph # (Auto) Dare # (Auto) Eos # (Auto) Baso # (Auto) PT INR APTT Sodium 141 Potassium 4.4 Chloride 102 Carbon Dioxide 23 Anion Gap 20 BUN 27 H Creatinine 1.3 H Est GFR ( Amer) 48 Est GFR (Non-Af Amer) 39 POC Glucose (mg/dL) Random Glucose 130 H Lactic Acid 2.6 H Calcium 9.0 Total Bilirubin 0.4 AST 31 ALT 16 Alkaline Phosphatase 90 Total Creatine Kinase 38 CK-MB (Mass) 0.49 Troponin I < 0.0120 Total Protein 7.9 Albumin 4.6 Globulin 3.3 Albumin/Globulin Ratio 1.4 Urine Color Urine Clarity Urine pH Ur Specific Knox Urine Protein Urine Glucose (UA) Urine Ketones Urine Blood Urine Nitrate Urine Bilirubin Urine Urobilinogen Ur Leukocyte Esterase Urine WBC (Auto) Urine RBC (Auto) Ur Squamous Epith Cells Urine Bacteria Hyaline Casts Influenza Typ A,B (EIA) Negative for flu a/b RSV Antigen Negative 08/18/18 11:30 WBC RBC Hgb Hct MCV MCH MCHC RDW Plt Count MPV Neut % (Auto) Lymph % (Auto) Dare % (Auto) Eos % (Auto) Baso % (Auto) Neut # (Auto) Lymph # (Auto) Dare # (Auto) Eos # (Auto) Baso # (Auto) PT INR APTT Sodium Potassium Chloride Carbon Dioxide Anion Gap BUN Creatinine Est GFR ( Amer) Est GFR (Non-Af Amer) POC Glucose (mg/dL) Random Glucose Lactic Acid Calcium Total Bilirubin AST ALT Alkaline Phosphatase Total Creatine Kinase CK-MB (Mass) Troponin I Total Protein Albumin Globulin Albumin/Globulin Ratio Urine Color Yellow Urine Clarity Hazy Urine pH 5.0 Ur Specific Knox 1.016 Urine Protein 2+ H Urine Glucose (UA) Normal Urine Ketones Negative Urine Blood Negative Urine Nitrate Negative Urine Bilirubin Negative Urine Urobilinogen Normal Ur Leukocyte Esterase 1+ H Urine WBC (Auto) 7 H Urine RBC (Auto) 4 H Ur Squamous Epith Cells 16 H Urine Bacteria Rare Hyaline Casts >20 H Influenza Typ A,B (EIA) RSV Antigen Assessment & Plan - Assessment and Plan (Free Text) Assessment: Chest pain EUGENIA negative x 1, f/u next 2 EKG- NSR x1 f/u next 2 CXR 08/18/18: * no acute pathology Stress Test (07/20/17) - Showed defect possibly representing ischemia Cardiac Cath (07/21/17) - Angiographically normal coronaries and normal LV systolic function Echo (07/17/17): Grade II diastolic dysfunction; EF 55% Lower abdominal pain chestAbd/pelvis CT w/o contrast: pending f/u repeat UA (clean catch): Urine culture (clean catch) pending ED course: received one dose of Rocephin Continue Rcephin 1g q12 Diastolic CHF (Type II) daily weights/monitor intake and output Continue Home Medications: * Aspirin 81mg PO daily * Coreg 25mg PO BID * Hydralazine 100 PO qd * Crestor 10mg once at night Hypertension Continue Home Medications: * Norvasc 5mg PO daily * Coreg 25mg PO BID * Hydralazine 100mg PO q8h * Isosorbide Mononitrate 60mg PO daily Chronic Body Pain Continue home medication * Gabapentin 100mg PO TID Diabetes ISS high Accuchecks Will hold metformin while in the hospital Hypoglycemia protocol Hx anemia monitor H&H Prophylactic measure Lovenox 40mg SC daily Pepcid 20mg PO daily Low Consistent carb, heart healthy, 2gm sodium diet <Gardner,Peter H - Last Filed: 08/18/18 17:42> Results - Vital Signs Recent Vital Signs: Last Vital Signs Temp 98 F 08/18/18 16:00 Pulse 61 08/18/18 16:00 Resp 20 08/18/18 16:00 BP 193/75 H 08/18/18 16:00 Pulse Ox 99 08/18/18 16:00 - Labs Result Diagrams: 08/18/18 10:47 08/18/18 10:47 Labs: Laboratory Results - last 24 hr 08/18/18 08/18/18 08/18/18 10:12 10:47 10:47 WBC 5.7 RBC 3.67 L Hgb 9.6 L Hct 29.7 L MCV 80.9 L MCH 26.2 L MCHC 32.4 L RDW 18.7 H Plt Count 177 MPV 7.8 Neut % (Auto) 65.1 Lymph % (Auto) 20.6 Dare % (Auto) 10.6 H Eos % (Auto) 3.0 Baso % (Auto) 0.7 Neut # (Auto) 3.7 Lymph # (Auto) 1.2 Dare # (Auto) 0.6 Eos # (Auto) 0.2 Baso # (Auto) 0.0 PT 12.4 H INR 1.1 APTT 31 Sodium Potassium Chloride Carbon Dioxide Anion Gap BUN Creatinine Est GFR ( Amer) Est GFR (Non-Af Amer) POC Glucose (mg/dL) 130 H Random Glucose Lactic Acid Calcium Total Bilirubin AST ALT Alkaline Phosphatase Total Creatine Kinase CK-MB (Mass) Troponin I Total Protein Albumin Globulin Albumin/Globulin Ratio Urine Color Urine Clarity Urine pH Ur Specific Knox Urine Protein Urine Glucose (UA) Urine Ketones Urine Blood Urine Nitrate Urine Bilirubin Urine Urobilinogen Ur Leukocyte Esterase Urine WBC (Auto) Urine RBC (Auto) Ur Squamous Epith Cells Urine Bacteria Hyaline Casts Influenza Typ A,B (EIA) RSV Antigen 08/18/18 08/18/18 08/18/18 10:47 10:56 11:02 WBC RBC Hgb Hct MCV MCH MCHC RDW Plt Count MPV Neut % (Auto) Lymph % (Auto) Dare % (Auto) Eos % (Auto) Baso % (Auto) Neut # (Auto) Lymph # (Auto) Dare # (Auto) Eos # (Auto) Baso # (Auto) PT INR APTT Sodium 141 Potassium 4.4 Chloride 102 Carbon Dioxide 23 Anion Gap 20 BUN 27 H Creatinine 1.3 H Est GFR ( Amer) 48 Est GFR (Non-Af Amer) 39 POC Glucose (mg/dL) Random Glucose 130 H Lactic Acid 2.6 H Calcium 9.0 Total Bilirubin 0.4 AST 31 ALT 16 Alkaline Phosphatase 90 Total Creatine Kinase 38 CK-MB (Mass) 0.49 Troponin I < 0.0120 Total Protein 7.9 Albumin 4.6 Globulin 3.3 Albumin/Globulin Ratio 1.4 Urine Color Urine Clarity Urine pH Ur Specific Knox Urine Protein Urine Glucose (UA) Urine Ketones Urine Blood Urine Nitrate Urine Bilirubin Urine Urobilinogen Ur Leukocyte Esterase Urine WBC (Auto) Urine RBC (Auto) Ur Squamous Epith Cells Urine Bacteria Hyaline Casts Influenza Typ A,B (EIA) Negative for flu a/b RSV Antigen Negative 08/18/18 08/18/18 11:30 16:44 WBC RBC Hgb Hct MCV MCH MCHC RDW Plt Count MPV Neut % (Auto) Lymph % (Auto) Dare % (Auto) Eos % (Auto) Baso % (Auto) Neut # (Auto) Lymph # (Auto) Dare # (Auto) Eos # (Auto) Baso # (Auto) PT INR APTT Sodium Potassium Chloride Carbon Dioxide Anion Gap BUN Creatinine Est GFR ( Amer) Est GFR (Non-Af Amer) POC Glucose (mg/dL) 80 Random Glucose Lactic Acid Calcium Total Bilirubin AST ALT Alkaline Phosphatase Total Creatine Kinase CK-MB (Mass) Troponin I Total Protein Albumin Globulin Albumin/Globulin Ratio Urine Color Yellow Urine Clarity Hazy Urine pH 5.0 Ur Specific Knox 1.016 Urine Protein 2+ H Urine Glucose (UA) Normal Urine Ketones Negative Urine Blood Negative Urine Nitrate Negative Urine Bilirubin Negative Urine Urobilinogen Normal Ur Leukocyte Esterase 1+ H Urine WBC (Auto) 7 H Urine RBC (Auto) 4 H Ur Squamous Epith Cells 16 H Urine Bacteria Rare Hyaline Casts >20 H Influenza Typ A,B (EIA) RSV Antigen Attending/Attestation - Attestation I have personally seen and examined this patient.: Yes I have fully participated in the care of the patient.: Yes I have reviewed all pertinent clinical information: Yes Notes (Text): 08/18/18 17:42 Medical attending: Patient was seen and examined by me, reviewed the above note by medical i d sales and agrees the above. The patient was previously at [facility] with similar complaints in 2017. Initially I was under the impression that the patient came from the [facility] clinic and was sent for chest pain - however it appears that after further discussion the patient was not from the clinic instead came to the hospital due to the ongoing pain that she was have. Per discussion with the patient as well as the medical i d sales who helped translate, the patient reports that she has chest pain, that she has abdominal pain, that she has eye pain, neck pain, arm pain, leg pain. She says everywhere on her body hurts. Emergency room did have a UA which may indicate a UTI and so Rocephin was given. Because of the patient's complaint of full body pain - we will check TSH, check CPK, rheumatoid factor, anti-CCP, an XENIA, and a UDS Because she is reporting chest pain, I reviewed the 12-lead EKG and this looks stable today. She also had chest x-ray done which did not show any acute abnormalities. We will check additional cardiac enzymes We will also get a CT scan of the chest abdomen and pelvis, this will be done without contrast. Overall I explained to the patient with the help of cut roll machine operator that she has complaints of pain all over her body and our chief goal is to make sure she does not have any acute medical emergency and that her pain may be chronic and that we may or may not find an answer for this nevertheless will get to some testing. She claims that she is not under stress, is not depressed, and not having anxiety Claudio Gardner
[2018-08-18] MEDS ORDERED: Glucagon Recombinant 1 mg Inj IM PRN (16:42)
[2018-08-18] MEDS ORDERED: Dextrose 50% SYRINGE Inj (50 ml) IV PRN (16:42)
[2018-08-18] MEDS: Enoxaparin 40 mg Syringe SC SCH (16:45)
--- NOTE | 2018-08-18 17:26 | CT ---
Date of service:08/18/2018 CT chest, abdomen, and pelvis without IV contrast Indication: epigastric pain, questionable UA, Technique: Contiguous axial images of the chest, abdomen, and pelvis without oral or IV contrast. Coronal and Sagittal reformats generated and reviewed. This CT exam was performed using 1 or more of the following dose reduction techniques: Automated exposure control, adjustment of the MAA and/or kV according to patient size, and/or use of iterative reconstruction technique. Radiation dose: Total exam DLP = 649.02 MGy-cm. Comparison: CT abdomen and pelvis with out IV contrast performed 05/10/18 Findings: Visualized portions of the inferior thyroid gland appear heterogeneous. The mediastinal and hilar vascular structures appear within normal limits. The heart appears within normal limits of size. Dense mitral annulus calcification. Small pericardial effusion. No focal consolidation. No pleural effusion. No pneumothorax. No suspicious pulmonary nodules measuring greater than 5 mm. Nodular hepatic contour. Punctate nonobstructing bilateral renal calculi. Cholelithiasis. The noncontrast liver, spleen, kidneys, pancreas, and adrenal glands appear unremarkable. The stomach is nondistended. Lack of oral contrast limits evaluation for bowel pathology. The bowel loops appear within normal limits of caliber without evidence of intestinal obstruction. There is no definite free air. Fibroid uterine changes with chronic retention of apparent intrauterine device. Mildly thick-walled urinary bladder, possibly exaggerated by under distension. Degenerative changes. Osseous demineralization. Impression: Heterogeneous appearance of the thyroid gland. Small pericardial effusion. Fibroid uterine changes with chronic retention of apparent intrauterine device. Mildly thick-walled urinary bladder, possibly exaggerated by under distension. Correlate clinically. Additional incidental findings as above.
[2018-08-18] MEDS ORDERED: Tramadol 25 mg PO PRN (18:03)
[2018-08-18 19:59] LABS: CK-MB 0.45 ng/mL (0.0-3.38)
[2018-08-18] MEDS: (Novolin R) Insulin Human Regular 100 units/ml vial SC SCH (21:47)
[2018-08-19 00:48] LABS: CK-MB 0.37 ng/mL (0.0-3.38)
[2018-08-19] MEDS: Enoxaparin 40 mg Syringe SC SCH (03:46)
[2018-08-19 06:44] LABS: BASO % 0.5 % (0.0-2.0); EOS # 0.2 K/uL (0.0-0.7); EOS % 3.5 % (0.0-4.0); HEMOGLOBIN 8.6 g/dL (11.0-16.0); LYMPH # 1.4 K/uL (1.0-4.3); LYMPH % 30.7 % (20.0-40.0); MEAN CELL VOLUME 80.3 fL (81.0-99.0); MEAN CORPUSCULAR HEMOGLOBIN 26.7 pg (27.0-31.0); MEAN CORPUSCULAR HGB CONC 33.2 g/dL (33.0-37.0); MEAN PLATELET VOLUME 7.9 fL (7.2-11.7); MONO # 0.7 K/uL (0.0-0.8); MONO % 14.2 % (0.0-10.0); NEUT # 2.4 K/uL (1.8-7.0); NEUT % 51.1 % (50.0-75.0); RBC 3.22 Mil/uL (3.80-5.20); RED CELL DISTRIBUTION WIDTH 18.2 % (11.5-14.5); WHITE BLOOD COUNT 4.6 K/uL (4.8-10.8)
[2018-08-19 07:02] LABS: ALB/GLOB RATIO 1.3 (1.0-2.1); ALBUMIN 3.7 g/dL (3.5-5.0); ALT/SGPT 20 U/L (9-52); AST/SGOT 21 U/L (14-36); BLOOD UREA NITROGEN 35 mg/dL (7-17); CALCIUM 8.3 mg/dl (8.6-10.4); GFR NON-AFRICAN AMERICAN 36
--- NOTE | 2018-08-19 07:26 | CP.PCM.PN ---
<Sandra Barba - Last Filed: 08/19/18 11:22> Subjective - Date & Time of Evaluation Date of Evaluation: 08/19/18 Time of Evaluation: 09:20 - Subjective Subjective: Patient examined at bedside. No aute overnight events. Pt reports improvement in chest pressure and SOB. Reports continued cough with sputum production and LLQ abdominal pain. Reports chronic diffuse body pains, unchanged. Denies nausea, vomiting, constipation. Pt reports she is urinating, and had 2 loose BMs, no blood. Objective - Vital Signs/Intake and Output Vital Signs (last 24 hours): Temp Pulse Resp BP Pulse Ox 98.3 F 70 20 151/61 H 97 08/19/18 04:25 08/19/18 04:25 08/19/18 04:25 08/19/18 04:25 08/19/18 04:25 Intake and Output: 08/19/18 08/19/18 06:59 18:59 Intake Total 100 Balance 100 - Medications Medications: Current Medications Amlodipine Besylate (Norvasc) 5 mg PO DAILY [facility] Last Admin: 08/18/18 16:59 Dose: 5 mg Aspirin (Aspirin Chewable) 81 mg PO DAILY [facility] Last Admin: 08/18/18 16:45 Dose: 81 mg Carvedilol (Coreg) 25 mg PO BID [facility] Last Admin: 08/18/18 18:13 Dose: 25 mg Dextrose (Dextrose 50% Inj) 0 ml IV STAT PRN; Protocol PRN Reason: Hypoglycemia Protocol Dextrose (Glutose 15) 0 gm PO ONCE PRN; Protocol PRN Reason: Hypoglycemia Protocol Enoxaparin Sodium (Lovenox) 40 mg SC Q12H [facility] Last Admin: 08/19/18 03:46 Dose: 40 mg Gabapentin (Neurontin) 100 mg PO TID [facility] Last Admin: 08/18/18 18:13 Dose: 100 mg Glucagon (Glucagen Diagnostic Kit) 0 mg IM STAT PRN; Protocol PRN Reason: Hypoglycemia Protocol Hydralazine HCl (Apresoline) 100 mg PO Q8H [facility] Last Admin: 08/18/18 23:53 Dose: 100 mg Ceftriaxone Sodium 1 gm/ (Sodium Chloride) 100 mls @ 100 mls/hr IVPB Q12H [facility]; Protocol Last Admin: 08/19/18 03:46 Dose: 100 mls/hr Dextrose (Dextrose 5% In Water 1000 Ml) 1,000 mls @ 0 mls/hr IV .Q0M PRN; Protocol PRN Reason: Hypoglycemia Protocol Insulin Human Regular (Novolin R) 0 unit SC ACHS [facility]; Protocol Last Admin: 08/18/18 21:47 Dose: Not Given Isosorbide Mononitrate (Imdur) 60 mg PO DAILY [facility] Last Admin: 08/18/18 16:57 Dose: 60 mg Rosuvastatin Calcium (Crestor) 10 mg PO HS [facility] Last Admin: 08/18/18 22:17 Dose: 10 mg Sodium Phosphate (Fleet Enema) 135 ml [place] PRN PRN PRN Reason: Constipation Tramadol HCl (Ultram) 25 mg PO Q12 PRN PRN Reason: Pain, severe (8-10) - Labs Labs: 08/19/18 06:22 08/19/18 06:22 PT 12.4 SECONDS (9.7-12.2) H 08/18/18 10:47 INR 1.1 08/18/18 10:47 APTT 31 SECONDS (21-34) 08/18/18 10:47 - Constitutional Appears: Non-toxic, No Acute Distress - Head Exam Head Exam: ATRAUMATIC, NORMAL INSPECTION, NORMOCEPHALIC - Eye Exam Eye Exam: EOMI, Normal appearance - ENT Exam ENT Exam: Mucous Membranes Moist, Normal Exam - Respiratory Exam Respiratory Exam: Clear to Ausculation Bilateral, NORMAL BREATHING PATTERN - Cardiovascular Exam Cardiovascular Exam: REGULAR RHYTHM, +S1, +S2 - GI/Abdominal Exam GI & Abdominal Exam: Soft, Tenderness (LLq tender to palpation), Normal Bowel Sounds - Extremities Exam Extremities Exam: Normal Inspection, Tenderness (LE diffusely tender to palpation). absent: Pedal Edema - Neurological Exam Neurological Exam: Alert, Awake, Oriented x3 - Psychiatric Exam Psychiatric exam: Normal Affect, Normal Mood - Skin Skin Exam: Dry, Intact, Normal Color, Warm Assessment and Plan - Assessment and Plan (Free Text) Assessment: 82 year old female admitted for evaluation and treatment of chest pain Plan: Chest pain, R/O ACS -EUGENIA negative x3 -asa, crestor -CT: small pericardial effusion Abdominal pain -CT: retained IUD, thickened bladder wall -lactate 2.6 on admission -IV Abx, rocephin -enema -tramadol 25mg q12 prn Body pains, chronic -gabapentin 100mg TID -tramadol prn -f/u breezy workup HTN/CHF -cont home meds, norvasc, coreg, hydralazine, isosorbide mononitrate DM2 -ISS -hypoglycemia protocol Ppx -lovenox 40 Discussed w/ Dr. Gardner -Sandra Barba, PGY-1 <Claudio Gardner H - Last Filed: 08/19/18 11:40> Objective - Vital Signs/Intake and Output Vital Signs (last 24 hours): Temp Pulse Resp BP Pulse Ox 98.4 F 67 18 156/69 H 100 08/19/18 07:25 08/19/18 11:01 08/19/18 09:36 08/19/18 09:37 08/19/18 09:36 Intake and Output: 08/19/18 08/19/18 06:59 18:59 Intake Total 100 Balance 100 - Medications Medications: Current Medications Amlodipine Besylate (Norvasc) 5 mg PO DAILY [facility] Last Admin: 08/19/18 09:38 Dose: 5 mg Aspirin (Aspirin Chewable) 81 mg PO DAILY [facility] Last Admin: 08/19/18 09:37 Dose: 81 mg Carvedilol (Coreg) 25 mg PO BID [facility] Last Admin: 08/19/18 09:37 Dose: 25 mg Dextrose (Dextrose 50% Inj) 0 ml IV STAT PRN; Protocol PRN Reason: Hypoglycemia Protocol Dextrose (Glutose 15) 0 gm PO ONCE PRN; Protocol PRN Reason: Hypoglycemia Protocol Enoxaparin Sodium (Lovenox) 40 mg SC DAILY [facility] Gabapentin (Neurontin) 100 mg PO TID [facility] Last Admin: 08/19/18 09:38 Dose: 100 mg Glucagon (Glucagen Diagnostic Kit) 0 mg IM STAT PRN; Protocol PRN Reason: Hypoglycemia Protocol Hydralazine HCl (Apresoline) 100 mg PO Q8H [facility] Last Admin: 08/19/18 08:01 Dose: 100 mg Ceftriaxone Sodium 1 gm/ (Sodium Chloride) 100 mls @ 100 mls/hr IVPB Q12H [facility]; Protocol Last Admin: 08/19/18 03:46 Dose: 100 mls/hr Dextrose (Dextrose 5% In Water 1000 Ml) 1,000 mls @ 0 mls/hr IV .Q0M PRN; Pro tocol PRN Reason: Hypoglycemia Protocol Insulin Human Regular (Novolin R) 0 unit SC ACHS [facility]; Protocol Last Admin: 08/19/18 07:53 Dose: Not Given Isosorbide Mononitrate (Imdur) 60 mg PO DAILY [facility] Last Admin: 08/19/18 09:38 Dose: 60 mg Rosuvastatin Calcium (Crestor) 10 mg PO HS [facility] Last Admin: 08/18/18 22:17 Dose: 10 mg Sodium Phosphate (Fleet Enema) 135 ml MA PRN PRN PRN Reason: Constipation Tramadol HCl (Ultram) 25 mg PO Q12 PRN PRN Reason: Pain, severe (8-10) - Labs Labs: 08/19/18 06:22 08/19/18 06:22 PT 12.4 SECONDS (9.7-12.2) H 08/18/18 10:47 INR 1.1 08/18/18 10:47 APTT 31 SECONDS (21-34) 08/18/18 10:47 Attending/Attestation - Attestation I have personally seen and examined this patient.: Yes I have fully participated in the care of the patient.: Yes I have reviewed all pertinent clinical information, including history, physical exam and plan: Yes Notes (Text): 08/19/18 11:36 Medical attending: Patient was seen and examined by me. Agree with the above note by the resident The patient was not in any acute distress when we saw her - she reported she felt a little better However on exam she again has pain everywhere ESR is only 30, CPK is ok, TSH ok, and troponins ok The CT scan of the chest, abdomen and pelvis showed that she does have what appears to be an IUD. Pending the BREEZY, RF, and other testing. Claudio Gardner
[2018-08-19] MEDS: (Novolin R) Insulin Human Regular 100 units/ml vial SC SCH ×4 (07:53→21:42)
--- NOTE | 2018-08-19 17:30 | CARD ---
APPROVED REPORT Date of service: 08/18/2018 EKG Measurement Heart [id number] <Conclusion> Normal sinus rhythm Left axis deviation Septal infarct, age undetermined Abnormal ECG
--- NOTE | 2018-08-19 17:41 | CARD ---
APPROVED REPORT Date of service: 08/18/2018 EKG Measurement Heart [id number] NM [id number] <Conclusion> Normal sinus rhythm Left axis deviation Possible Anterior infarct, age undetermined Abnormal ECG
[2018-08-20] MEDS: (Novolin R) Insulin Human Regular 100 units/ml vial SC SCH ×4 (08:02→23:23)
[2018-08-20 08:25] LABS: BASO % 0.3 % (0.0-2.0); EOS # 0.2 K/uL (0.0-0.7); EOS % 4.6 % (0.0-4.0); HEMOGLOBIN 9.3 g/dL (11.0-16.0); LYMPH # 1.8 K/uL (1.0-4.3); LYMPH % 36.4 % (20.0-40.0); MEAN CELL VOLUME 80.7 fL (81.0-99.0); MEAN CORPUSCULAR HEMOGLOBIN 26.9 pg (27.0-31.0); MEAN CORPUSCULAR HGB CONC 33.4 g/dL (33.0-37.0); MEAN PLATELET VOLUME 8.2 fL (7.2-11.7); MONO # 0.6 K/uL (0.0-0.8); MONO % 12.7 % (0.0-10.0); NEUT # 2.2 K/uL (1.8-7.0); NRBC % 0.1 % (0.0-2.0); RBC 3.45 Mil/uL (3.80-5.20); RED CELL DISTRIBUTION WIDTH 18.4 % (11.5-14.5); WHITE BLOOD COUNT 4.8 K/uL (4.8-10.8)
[2018-08-20 08:28] LABS: ALB/GLOB RATIO 1.3 (1.0-2.1); ALBUMIN 4.2 g/dL (3.5-5.0); CALCIUM 8.5 mg/dl (8.6-10.4)
--- NOTE | 2018-08-20 08:54 | CP.PCM.PN ---
Subjective - Date & Time of Evaluation Date of Evaluation: 08/20/18 Time of Evaluation: 08:40 - Subjective Subjective: Patient was seen and examined by me. The patient was not in any acute distress - she was sitting up at bedside, she completed her breakfast. She appeared comfortable however depressed. She reports she is feeling only somewhat better however I will have to return again with compliance technician as she appear to be complaining of pain everywhere again - even to very very light palpation of the ankles, hands, wrist, elbows. Yesterday started on gabapentin for potential neuropathic pain, also tramadol but the tramadol was not given so will try ordering it to be given to see how she feels So far CBC appears stable, blood culture stable, TSH is ok, CPK ok, troponins ok, Influenza negative, RSV negative We are pending BREEZY, RF however the ESR returned and was only 30 A UA done in ER had a lot of contain cells and a reapeat UA was ordered however I don't see this so will recheck again. She remains on IV Rocephin. Objective - Vital Signs/Intake and Output Vital Signs (last 24 hours): Temp Pulse Resp BP Pulse Ox 97.6 F 75 18 183/76 H 96 08/20/18 07:25 08/20/18 07:25 08/20/18 07:25 08/20/18 07:25 08/20/18 07:25 Intake and Output: 08/20/18 08/20/18 06:59 18:59 Intake Total 210 Balance 210 - Medications Medications: Current Medications Amlodipine Besylate (Norvasc) 5 mg PO DAILY [facility] Last Admin: 08/19/18 09:38 Dose: 5 mg Aspirin (Aspirin Chewable) 81 mg PO DAILY [facility] Last Admin: 08/19/18 09:37 Dose: 81 mg Carvedilol (Coreg) 25 mg PO BID [facility] Last Admin: 08/19/18 17:58 Dose: 25 mg Dextrose (Dextrose 50% Inj) 0 ml IV STAT PRN; Protocol PRN Reason: Hypoglycemia Protocol Dextrose (Glutose 15) 0 gm PO ONCE PRN; Protocol PRN Reason: Hypoglycemia Protocol Enoxaparin Sodium (Lovenox) 40 mg SC DAILY [facility] Gabapentin (Neurontin) 100 mg PO TID [facility] Last Admin: 08/19/18 17:58 Dose: 100 mg Glucagon (Glucagen Diagnostic Kit) 0 mg IM STAT PRN; Protocol PRN Reason: Hypoglycemia Protocol Hydralazine HCl (Apresoline) 100 mg PO Q8H [facility] Last Admin: 08/20/18 00:14 Dose: 100 mg Ceftriaxone Sodium 1 gm/ (Sodium Chloride) 100 mls @ 100 mls/hr IVPB Q12H [facility]; Protocol Last Admin: 08/20/18 05:38 Dose: 100 mls/hr Dextrose (Dextrose 5% In Water 1000 Ml) 1,000 mls @ 0 mls/hr IV .Q0M PRN; Pro tocol PRN Reason: Hypoglycemia Protocol Insulin Human Regular (Novolin R) 0 unit SC ACHS [facility]; Protocol Last Admin: 08/20/18 08:02 Dose: 2 unit Isosorbide Mononitrate (Imdur) 60 mg PO DAILY [facility] Last Admin: 08/19/18 09:38 Dose: 60 mg Rosuvastatin Calcium (Crestor) 10 mg PO HS [facility] Last Admin: 08/19/18 21:50 Dose: 10 mg Sodium Phosphate (Fleet Enema) 135 ml [place] PRN PRN PRN Reason: Constipation Tramadol HCl (Ultram) 25 mg PO Q12 PRN PRN Reason: Pain, severe (8-10) - Labs Labs: 08/20/18 07:59 08/20/18 07:59 PT 12.4 SECONDS (9.7-12.2) H 08/18/18 10:47 INR 1.1 08/18/18 10:47 APTT 31 SECONDS (21-34) 08/18/18 10:47 - Constitutional Appears: No Acute Distress, Unkempt, Older Than Stated Age, Confused, Chron ically Ill - Head Exam Head Exam: NORMAL INSPECTION, NORMOCEPHALIC - Eye Exam Eye Exam: EOMI - ENT Exam ENT Exam: Mucous Membranes Moist - Respiratory Exam Respiratory Exam: Clear to Ausculation Bilateral, NORMAL BREATHING PATTERN - Cardiovascular Exam Cardiovascular Exam: REGULAR RHYTHM - GI/Abdominal Exam GI & Abdominal Exam: Soft, Normal Bowel Sounds. absent: Distended, Firm, Guarding, Rigid, Tenderness - Neurological Exam Neurological Exam: Alert, Awake, Oriented x3 Neuro motor strength exam: Left Upper Extremity: 5, Right Upper Extremity: 5 - Psychiatric Exam Psychiatric exam: Depressed, Flat Affect - Skin Skin Exam: Pallor, Warm Assessment and Plan - Assessment and Plan (Free Text) Assessment: 82 year old female admitted for evaluation and treatment of chest pain and vague complaints of pain all over her body Plan: 08/20: The troponins are negative, on telemetry HR is 70s NSR. CT lung was stable, the CT scan suggest maybe small pericardial effusion however BP is high and she is not tachycardic. -asa, crestor -CT: small pericardial effusion Abdominal pain 08/20: We need a repeat UA, the UA is missing and the Uculture is missing. She has on CT a retained IUD, thickened bladder wall. Review Llactate 2.6 on admission -tramadol 25mg q12 prn Body pains, chronic -gabapentin 100mg TID -tramadol prn -f/u breezy workup HTN/CHF -cont home meds, norvasc, coreg, hydralazine, isosorbide mononitrate DM2 -ISS -hypoglycemia protocol Ppx -lovenox 40 Discussed w/ Dr. Gardner -Sandra Barba, PGY-1
[2018-08-20] MEDS: Enoxaparin 40 mg Syringe SC SCH (09:09)
[2018-08-20] MEDS ORDERED: Pneumococcal 23-Valent Vaccine IM ONE (12:00)
[2018-08-21 07:36] LABS: BASO % 0.7 % (0.0-2.0); EOS # 0.2 K/uL (0.0-0.7); EOS % 4.8 % (0.0-4.0); HEMOGLOBIN 8.4 g/dL (11.0-16.0); LYMPH # 1.3 K/uL (1.0-4.3); LYMPH % 32.5 % (20.0-40.0); MEAN CELL VOLUME 80.8 fL (81.0-99.0); MEAN CORPUSCULAR HEMOGLOBIN 26.9 pg (27.0-31.0); MEAN CORPUSCULAR HGB CONC 33.3 g/dL (33.0-37.0); MONO # 0.5 K/uL (0.0-0.8); MONO % 12.6 % (0.0-10.0); NEUT % 49.4 % (50.0-75.0); RBC 3.11 Mil/uL (3.80-5.20); RED CELL DISTRIBUTION WIDTH 17.9 % (11.5-14.5); WHITE BLOOD COUNT 4.1 K/uL (4.8-10.8)
[2018-08-21] MEDS: (Novolin R) Insulin Human Regular 100 units/ml vial SC SCH ×2 (07:45→12:31)
[2018-08-21 08:26] LABS: ALB/GLOB RATIO 1.3 (1.0-2.1); ALBUMIN 3.7 g/dL (3.5-5.0); CALCIUM 7.9 mg/dl (8.6-10.4)
[2018-08-21 08:29] VITALS: RESP 18; TEMP 98
[2018-08-21] MEDS: Enoxaparin 40 mg Syringe SC SCH (09:16)
[2018-08-21 09:17] VITALS: BP 169/64
[2018-08-21] MEDS ORDERED: Influenza Vaccine 60 MCG/0.5 ML SYR (3 yr & up) IM ONE ×2 (12:00→13:47)
--- NOTE | 2018-08-21 12:48 | CP.PCM.DIS ---
Provider - Provider Date of Admission: 08/18/18 14:48 Attending physician: Mayra Drake MD Time Spent in preparation of Discharge (in minutes): 40 Hospital Course - Lab Results Lab Results: Micro Results 08/18/18 11:03 Blood Blood Culture - Preliminary NO GROWTH AFTER 3 DAYS 08/18/18 11:03 Blood Blood Culture - Preliminary NO GROWTH AFTER 3 DAYS Most Recent Lab Values WBC 4.1 K/uL (4.8-10.8) L 08/21/18 07:28 RBC 3.11 Mil/uL (3.80-5.20) L 08/21/18 07:28 Hgb 8.4 g/dL (11.0-16.0) L 08/21/18 07:28 Hct 25.2 % (34.0-47.0) L 08/21/18 07:28 MCV 80.8 fL (81.0-99.0) L 08/21/18 07:28 MCH 26.9 pg (27.0-31.0) L 08/21/18 07:28 MCHC 33.3 g/dL (33.0-37.0) 08/21/18 07:28 RDW 17.9 % (11.5-14.5) H 08/21/18 07:28 Plt Count 160 K/uL (130-400) 08/21/18 07:28 MPV 8.0 fL (7.2-11.7) 08/21/18 07:28 Neut % (Auto) 49.4 % (50.0-75.0) L 08/21/18 07:28 Lymph % (Auto) 32.5 % (20.0-40.0) 08/21/18 07:28 [place] % (Auto) 12.6 % (0.0-10.0) H 08/21/18 07:28 Eos % (Auto) 4.8 % (0.0-4.0) H 08/21/18 07:28 Baso % (Auto) 0.7 % (0.0-2.0) 08/21/18 07:28 Neut # (Auto) 2.0 K/uL (1.8-7.0) 08/21/18 07:28 Lymph # (Auto) 1.3 K/uL (1.0-4.3) 08/21/18 07:28 [place] # (Auto) 0.5 K/uL (0.0-0.8) 08/21/18 07:28 Eos # (Auto) 0.2 K/uL (0.0-0.7) 08/21/18 07:28 Baso # (Auto) 0.0 K/uL (0.0-0.2) 08/21/18 07:28 ESR 30 mm/hr (0-20) H 08/19/18 06:22 PT 12.4 SECONDS (9.7-12.2) H 08/18/18 10:47 INR 1.1 08/18/18 10:47 APTT 31 SECONDS (21-34) 08/18/18 10:47 Sodium 138 mmol/L (132-148) 08/21/18 07:28 Potassium 4.0 mmol/L (3.6-5.2) 08/21/18 07:28 Chloride 107 mmol/L (98-107) 08/21/18 07:28 Carbon Dioxide 21 mmol/L (22-30) L 08/21/18 07:28 Anion Gap 15 (10-20) 08/21/18 07:28 BUN 35 mg/dL (7-17) H 08/21/18 07:28 Creatinine 1.1 mg/dL (0.7-1.2) 08/21/18 07:28 Est GFR ( Amer) 58 08/21/18 07:28 Est GFR (Non-Af Amer) 48 08/21/18 07:28 POC Glucose (mg/dL) 212 mg/dL (65-110) H 08/21/18 12:20 Random Glucose 119 mg/dL (65-105) H 08/21/18 07:28 Lactic Acid 2.6 mmol/L (0.7-2.1) H 08/18/18 11:02 Calcium 7.9 mg/dl (8.6-10.4) L 08/21/18 07:28 Phosphorus 5.0 mg/dL (2.5-4.5) H 08/21/18 07:28 Magnesium 2.3 mg/dL (1.6-2.3) 08/21/18 07:28 Total Bilirubin 0.1 mg/dL (0.2-1.3) L 08/21/18 07:28 AST 24 U/L (14-36) 08/21/18 07:28 ALT 21 U/L (9-52) 08/21/18 07:28 Alkaline Phosphatase 74 U/L (38-126) 08/21/18 07:28 Total Creatine Kinase 33 U/L (30-135) 08/19/18 00:21 CK-MB (Mass) 0.37 ng/mL (0.0-3.38) 08/19/18 00:21 Troponin I < 0.0120 ng/mL (0.00-0.120) 08/19/18 00:21 C-Reactive Protein < 5.00 mg/L (0.0-9.9) 08/19/18 06:22 Total Protein 6.4 g/dL (6.3-8.3) 08/21/18 07:28 Albumin 3.7 g/dL (3.5-5.0) 08/21/18 07:28 Globulin 2.8 gm/dL (2.2-3.9) 08/21/18 07:28 Albumin/Globulin Ratio 1.3 (1.0-2.1) 08/21/18 07:28 TSH 3rd Generation 1.11 mIU/L (0.46-4.68) 08/18/18 19:10 Urine Color Yellow (YELLOW) 08/18/18 11:30 Urine Clarity Hazy (Clear) 08/18/18 11:30 Urine pH 5.0 (5.0-8.0) 08/18/18 11:30 Ur Specific [place] 1.016 (1.003-1.030) 08/18/18 11:30 Urine Protein 2+ mg/dL (NEGATIVE) H 08/18/18 11:30 Urine Glucose (UA) Normal mg/dL (Normal) 08/18/18 11:30 Urine Ketones Negative mg/dL (NEGATIVE) 08/18/18 11:30 Urine Blood Negative (NEGATIVE) 08/18/18 11:30 Urine Nitrate Negative (NEGATIVE) 08/18/18 11:30 Urine Bilirubin Negative (NEGATIVE) 08/18/18 11:30 Urine Urobilinogen Normal mg/dL (0.2-1.0) 08/18/18 11:30 Ur Leukocyte Esterase 1+ Farhan/uL (Negative) H 08/18/18 11:30 Urine WBC (Auto) 7 /hpf (0-5) H 08/18/18 11:30 Urine RBC (Auto) 4 /hpf (0-3) H 08/18/18 11:30 Ur Squamous Epith Cells 16 /hpf (0-5) H 08/18/18 11:30 Urine Bacteria Rare (<OCC) 08/18/18 11:30 Hyaline Casts >20 /lpf (0-2) H 08/18/18 11:30 Influenza Typ A,B (EIA) Negative for flu a/b (NEGATIVE) 08/18/18 10:56 RSV Antigen Negative (NEGATIVE) 08/18/18 10:56 - Hospital Course Hospital Course: HPI: Ms. Luke is an 82 year old female with past medical history of hypertension, diabetes mellitus, congestive heart failure, hyperlipidemia, and anemia who presented to the ED with reported chest discomfort for 4 days. The patient was previously at [facility] with similar complaints in May 2018. Per discussion with the patient as well as the medical underwriter who helped translate, the patient reported that she had chest pain, abdominal pain, that she eye pain, neck pain, arm pain, leg pain. She says everywhere on her body hurts. Urinalysis performed in the ED was positive, which may indicate a UTI and so Rocephin was given. During the course of admission: Because of the patient's complaint of full body pain, extensive lab testing was performed, including: TSH, CPK, rheumatoid factor, anti-CCP, XENIA. 12-lead EKG was performed due to complaints of chest pain, which was stable. She also had chest x-ray done which did not show any acute abnormalities. Cardiac enzymes were all within normal limits. CT scan of the chest abdomen and pelvis without contrast demonstrated no acute findings. Patient claimed that she is not under stress, is not depressed, and not having anxiety. Patient remained afebrile, with no elevated WBC count or source of infection. She is medically stable for discharge, as per Dr. Drake. She is instructed to follow up at [facility] within 1-2 weeks of discharge to follow up XENIA level and for continued management. Please call the following number to schedule an appointment: [place] [address] Patient to continue all home medications as prescribed. Patient has been given script for Keflex to take as indicated for 5 days. The following is a summary of hospital course. For full detail, please refer to EMR. - Date & Time of H&P Date of H&P: 08/21/18 Time of H&P: 15:34 Discharge Exam - Head Exam Head Exam: NORMAL INSPECTION, NORMOCEPHALIC - Eye Exam Eye Exam: EOMI, Normal appearance Pupil Exam: NORMAL ACCOMODATION - ENT Exam ENT Exam: Mucous Membranes Moist, Normal Exam - Neck Exam Neck exam: Full Rom, Normal Inspection - Respiratory Exam Respiratory Exam: Clear to PA & Lateral, NORMAL BREATHING PATTERN, UNREMARKABLE. absent: Accessory Muscle Use, Respiratory Distress - Cardiovascular Exam Cardiovascular Exam: REGULAR RHYTHM, +S1, +S2 - GI/Abdominal Exam GI & Abdominal Exam: Normal Bowel Sounds, Soft, Unremarkable. absent: Distended, Firm, Guarding, Hernia, Rebound, Rigid, Tenderness - Extremities Exam Extremities exam: full ROM, normal capillary refill, pedal pulses present - Neurological Exam Neurological exam: Alert, Oriented x3 - Psychiatric Exam Psychiatric exam: Depressed, Flat Affect - Skin Skin Exam: Dry, Intact, Normal Color, Warm Discharge Plan - Discharge Medications Prescriptions: Cephalexin [cephalexin] 500 mg PO BID #10 cap - Follow Up Plan Condition: FAIR Disposition: HOME/ ROUTINE Instructions: Heart Healthy Diet, Heart Failure, Adult (DC), Chest Pain (DC), Cephalexin, Urinary Tract Infection in Women (DC) Additional Instructions: Patient is medically stable for discharge to home, per Dr. Drake. Patient is instructed to follow up in [facility] with Dr. Gu for XENIA level. Patient to continue all home medications as prescribed. Patient has been given script for Keflex to take as indicated for 5 days. El paciente es mdicamente estable para la descarga a casa, por el Dr. Drake. Se instruye al paciente a seguir en la clnica de [facility] con el Dr. Gu para el nivel de XENIA. Paciente para continuar todos los medicamentos caseros segn lo prescrito. Se le middleton dado al paciente un davidson para que Keflex lo tome jah se indica priscilla 5 cabrera. Referrals: Sofie Gu MD [Staff Provider] -
[2018-08-21 14:49] VITALS: PULSE 84; O2SAT 96
== END 2018-08-21 14:45 | disposition home or self-care (01) ==
LOC: C.ER 09:55 → C.6T 14:48
PROVIDERS: ADMIT Internal Medicine; ATTEND Internal Medicine
DX: R07.89 Other chest pain (principal); I11.0 Hypertensive heart disease with heart failure; I50.32 Chronic diastolic (congestive) heart failure; E78.5 Hyperlipidemia, unspecified; N39.0 Urinary tract infection, site not specified; E11.9 Type 2 diabetes mellitus without complications; Z79.84 Long term (current) use of oral hypoglycemic drugs
CPT/HCPCS: 36415; 71045; 71250; 74176; 80053; 81001; 82550; 82553; 82948; 83520; 83605; 83735; 84100; 84443; 84484; 85025; 85610; 85651; 85730; 86039; 86140; 87040; 87086; 87804; 87807; 90471; 90674; 93005; 96365; 96366; 96372; 96375; 97162; 97530; 99285; G0378; G8978; G8979; J0696; J1650